=== PATIENT | female | born 1965 | race African-American/Black ===

== ENCOUNTER 2017-04-15 11:48 | Emergency (ER) | payer MEDICARE, MEDICAID ==
[~2017-04-15] VITALS: Ht 162.6 cm; Wt 106.6 kg
[~2017-04-15 11:48] MED LIST: LANTUS100 UNIT/2 SUBQ; METFORMIN HCL850 M1 ORAL; VANCOMYCIN HCL1 G1 IV
[2017-04-15] MEDS ORDERED: LEVOFLOXACIN500 MG ORAL (12:26)
[2017-04-15 13:18] VITALS: BP 158/97
--- NOTE | 2017-04-18 14:40 | Emergency Room Report ---
History of Present Illness General Chief Complaint: Skin Rash/Abscess Source: Patient, Medical Record Present Illness HPI Patient's a 51-year-old female presented after left leg ulcer. Patient had reported having left ankle discomfort. Patient has prior history of chronic ulcer to her left leg. Patient was having gradual improvement in the left ulcer size. She denies any fever. She denied wound discharge. She presented and seen by plastic surgeon and had debridement. Patient is diabetic. Allergies: Coded Allergies: PENICILLINS (Verified Allergy, Severe, SWOLLEN BODY, 05/13/11) Patient History Past Medical History: see triage record Reviewed Nursing Documentation: PMH: Agreed, PSxH: Agreed Nursing Documentation-PMH Past Medical History: No History, Except For Hx Hypertension: Yes Hx Diabetes: Yes Review of Systems All Other Systems: negative except mentioned in HPI Physical Exam Vital Signs Date Time Temp Pulse Resp B/P (MAP) Pulse Ox O2 Delivery O2 Flow Rate FiO2 04/15/17 11:57 99.2 87 18 154/87 95 Room Air 99.1 Sp02 EP Interpretation: reviewed, normal General Appearance: normal inspection, no apparent distress, alert, GCS 15, Chronically Ill Head: atraumatic ENT: normal ENT inspection, hearing grossly normal, normal voice Neck: normal inspection, full range of motion, supple, no bony tend Respiratory: normal inspection, lungs clear, normal breath sounds, no respiratory distress, no retraction, no wheezing Cardiovascular #1: regular rate, rhythm, edema - trace Gastrointestinal: normal inspection, normal bowel sounds, non tender, soft, no guarding, no hernia Genitourinary: no CVA tenderness Musculoskeletal: normal inspection, back normal, normal range of motion, other - amputation bka rigth Neurologic: normal inspection, alert, responsive, speech normal Psychiatric: normal inspection, judgement/insight normal, mood/affect normal Skin: other - left leg ulcer, near lateral malleolus, no significant discharge Medical Decision Making Diagnostic Impression: Primary Impression: Leg ulcer, left ER Course Patient is a 51-year-old female presented for left leg ulcer. Differential diagnosis includes not limited to osteomyelitis, cellulitis, abscess among others. Patient has a benign exam and does not appear to require any further imaging or laboratory testing at this time. Patient has a chronic nonhealing wound which per patient has been improving. Patient was advised to follow-up with with wound care clinic. Patient was given prescription for antibiotics. The patient is advised to follow up with primary care doctor in 1-2 days. Patient is advised to return if any worsening condition or if any changes in status that are concerning. This report is dictated with [employer] route delivery supervisor software which may occasionally lead to discrepancies related to use of this software. Last Vital Signs Date Time Temp Pulse Resp B/P (MAP) Pulse Ox O2 Delivery O2 Flow Rate FiO2 04/15/17 13:18 99.0 87 18 158/97 97 Room Air 99.1 Status: improved Disposition: HOME, SELF-CARE Condition: Stable Scripts Levofloxacin (LEVOFLOXACIN*) 500 Mg Tablet 500 MG ORAL DAILY, #7 TAB Prov: Carlos Holman 04/15/17 Referrals: NOT CHOSEN [facility]/MD,REFERRING (PCP) Patient Instructions: Skin Ulcer Carlos oHlman Apr 18, 2017 14:40
== END 2017-04-15 13:20 | disposition home or self-care (01) ==
LOC: EMR 13:20
DX: L97.829 Non-pressure chronic ulcer of other part of left lower leg with unspecified severity (principal); Z89.511 Acquired absence of right leg below knee; E11.9 Type 2 diabetes mellitus without complications; I10 Essential (primary) hypertension; Z88.0 Allergy status to penicillin
CPT/HCPCS: 99282

== ENCOUNTER 2017-04-21 14:51 | Inpatient (IN) | payer MEDICARE, MEDICAID ==
[~2017-04-21] VITALS: Ht 162.6 cm; Wt 105.2 kg
[~2017-04-21 14:51] MED LIST changes: +LEVOFLOXACIN500 MG ORAL
[2017-04-21 17:00] VITALS: BP 133/80
[2017-04-21 17:53] LABS: HEMATOCRIT 34.2 % (37.0-47.0); HEMOGLOBIN 10.7 G/DL (12.0-16.0); MEAN CORPUSCULAR VOLUME 87 FL (80-99); PLATELET COUNT 299 K/UL (150-450); RED BLOOD COUNT 3.93 M/UL (4.20-5.40); RED CELL DISTRIBUTION WIDTH 12.8 % (11.6-14.8); WHITE BLOOD COUNT 17.6 K/UL (4.8-10.8)
[2017-04-21 17:57] LABS: ALANINE AMINOTRANSFERASE 9 U/L (12-78); ALBUMIN 1.9 G/DL (3.4-5.0); ALBUMIN/GLOBULIN RATIO 0.3 (1.0-2.7); ALKALINE PHOSPHATASE 100 U/L (46-116); ANION GAP 16 mmol/L (5-15); ASPARTATE AMINO TRANSFERASE 7 U/L (15-37); BILIRUBIN,TOTAL 0.6 MG/DL (0.2-1.0); BLOOD UREA NITROGEN 49 mg/dL (7-18); CALCIUM 10.2 MG/DL (8.5-10.1); CARBON DIOXIDE 20 MMOL/L (21-32); CHLORIDE 87 MMOL/L (98-107); POTASSIUM 4.2 MMOL/L (3.5-5.1); SODIUM 123 MMOL/L (136-145)
[2017-04-21] MEDS ORDERED: Morphine Sulfate 2mg/ml Inj IVP PRN (18:15)
[2017-04-21] MEDS ORDERED: Miralax 17gm pkt ORAL PRN (18:15)
[2017-04-21] MEDS ORDERED: Nitroglycerin Subl 0.4mg tab SL PRN (18:15)
[2017-04-21] MEDS ORDERED: Albuterol/Ipratropium 3ml neb HHN PRN (18:15)
[2017-04-21 19:47] VITALS: BP 115/68
[2017-04-21] MEDS ORDERED: Aztreonam Inj 1 GM in NS 55 ML IVPB SCH ×2 (20:00→22:00)
[2017-04-21] MEDS ORDERED: Cefepime HCl 2 GM in D5W 110 ML IV SCH (21:00)
--- NOTE | 2017-04-21 21:45 | History and Physical ---
History of Present Illness General Date patient seen: Apr 22, 2017 Reason for Hospitalization: Skin Rash/Abscess Present Illness HPI 51 yo female with hx of DM, Hx of right foot amputation patient presents to ER complaining of left leg swelling. Patient unable to ambulate secondary to right foot amputation. Her left leg wound started a few days ago. Allergies: Coded Allergies: PENICILLINS (Verified Allergy, Severe, SWOLLEN BODY, 05/13/11) Medication History Scheduled Insulin Glargine,Hum.rec.anlog (Lantus), 80 SUBQ BEDTIME, (Reported) Levofloxacin (Levofloxacin*), 500 MG ORAL DAILY Metformin Hcl* (Metformin Hcl*), 850 MG ORAL BID, (Reported) Vancomycin Hcl (Vancomycin Hcl), GM IV DAILY, (Reported) Miscellaneous Medications Vancomycin Hcl (Vancomycin Hcl), 1 GM IV, (Reported) Patient History Healthcare decision maker Resuscitation status Advanced Directive on File Review of Systems All Other Systems: negative except mentioned in HPI Physical Exam General Appearance: WD/WN Lines, tubes and drains: peripheral HEENT: normocephalic, atraumatic Neck: non-tender, normal alignment Respiratory/Chest: chest wall non-tender, lungs clear Cardiovascular/Chest: normal peripheral pulses, normal rate Abdomen: normal bowel sounds, non tender Genitourinary/Rectal: normal genital exam Last 24 Hour Vital Signs Date Time Temp Pulse Resp B/P (MAP) Pulse Ox O2 Delivery O2 Flow Rate FiO2 04/21/17 19:47 99.4 106 16 115/68 96 Room Air 99.4 04/21/17 18:55 94 16 98 Room Air 04/21/17 18:53 94 16 Room Air 04/21/17 18:40 98.9 04/21/17 17:00 98.8 101 16 133/80 95 Room Air 98.8 04/21/17 15:05 98.9 94 16 145/91 98 Room Air 99.0 Laboratory Tests Test 04/21/17 17:10 04/21/17 17:20 Lactic Acid Level 1.50 mmol/L (0.66-2.22) White Blood Count 17.6 K/UL (4.8-10.8) H Red Blood Count 3.93 M/UL (4.20-5.40) L Hemoglobin 10.7 G/DL (12.0-16.0) L Hematocrit 34.2 % (37.0-47.0) L Mean Corpuscular Volume 87 FL (80-99) Mean Corpuscular Hemoglobin 27.2 PG (27.0-31.0) Mean Corpuscular Hemoglobin Concent 31.3 G/DL (32.0-36.0) L Red Cell Distribution Width 12.8 % (11.6-14.8) Platelet Count 299 K/UL (150-450) Mean Platelet Volume 10.0 FL (6.5-10.1) Neutrophils (%) (Auto) % (45.0-75.0) Lymphocytes (%) (Auto) % (20.0-45.0) Monocytes (%) (Auto) % (1.0-10.0) Eosinophils (%) (Auto) % (0.0-3.0) Basophils (%) (Auto) % (0.0-2.0) Differential Total Cells Counted 100 Neutrophils % (Manual) 80 % (45-75) H Lymphocytes % (Manual) 6 % (20-45) L Monocytes % (Manual) 8 % (1-10) Eosinophils % (Manual) 0 % (0-3) Basophils % (Manual) 0 % (0-2) Band Neutrophils 6 % (0-8) Platelet Estimate Adequate Platelet Morphology Normal Hypochromasia 1+ Anisocytosis 1+ Sodium Level 123 MMOL/L (136-145) L Potassium Level 4.2 MMOL/L (3.5-5.1) Chloride Level 87 MMOL/L (98-107) L Carbon Dioxide Level 20 MMOL/L (21-32) L Anion Gap 16 mmol/L (5-15) H Blood Urea Nitrogen 49 mg/dL (7-18) H Creatinine 3.0 MG/DL (0.55-1.30) H Estimat Glomerular Filtration Rate 19.8 mL/min (>60) Glucose Level 708 MG/DL (74-106) *H Calcium Level 10.2 MG/DL (8.5-10.1) H Total Bilirubin 0.6 MG/DL (0.2-1.0) Aspartate Amino Transf (AST/SGOT) 7 U/L (15-37) L Alanine Aminotransferase (ALT/SGPT) 9 U/L (12-78) L Alkaline Phosphatase 100 U/L (46-116) Total Protein 8.1 G/DL (6.4-8.2) Albumin 1.9 G/DL (3.4-5.0) L Globulin 6.2 g/dL Albumin/Globulin Ratio 0.3 (1.0-2.7) L Height (Feet): 5 Height (Inches): 4.00 Weight (Pounds): 232 Medications Current Medications Medications (Trade) Dose Ordered Sig/Artemio Route PRN Reason Start Time Stop Time Status Last Admin Dose Admin Acetaminophen (Tylenol) 650 mg Q4H PRN ORAL fever (temp>100.5F) 04/21/17 18:15 05/21/17 18:14 Albuterol/ Ipratropium (Albuterol/ Ipratropium) 3 ml Q4H PRN HHN Shortness of Breath 04/21/17 18:15 04/26/17 18:14 Aztreonam 1 gm/ Sodium Chloride 55 ml @ 110 mls/hr Q12HR@1000,2200 IVPB 04/21/17 22:00 04/28/17 21:59 Dextrose (Dextrose 50%) STAT PRN IV Hypoglycemia 04/21/17 18:15 05/21/17 18:14 Heparin Sodium (Porcine) (Heparin 5000 units/ml) 5,000 units EVERY 12 HOURS SUBQ 04/21/17 21:00 05/21/17 20:59 Insulin Aspart (NovoLOG) BEFORE MEALS AND HS SUBQ 04/21/17 21:00 05/21/17 20:59 Morphine Sulfate (Morphine Sulfate) 2 mg Q4H PRN IVP Moderate Pain (Pain Scale 4-6) 04/21/17 18:15 04/28/17 18:14 Nitroglycerin (Ntg) 0.4 mg Q5M PRN SL Prn Chest Pain 04/21/17 18:15 05/21/17 18:14 Ondansetron HCl (Zofran) 4 mg Q6H PRN IVP Nausea & Vomiting 04/21/17 18:15 05/21/17 18:14 Polyethylene Glycol (Miralax) 17 gm DAILYPRN PRN ORAL Constipation 04/21/17 18:15 05/21/17 18:14 Temazepam (Restoril) 15 mg HSPRN PRN ORAL Insomnia 04/21/17 18:15 04/28/17 18:14 Vancomycin HCl (Vanco rx to dose) 1 ea DAILY PRN MISC . 04/21/17 20:30 05/21/17 20:29 Vancomycin HCl/ Dextrose 250 ml @ 125 mls/hr ONCE ONCE IVPB 04/21/17 23:00 04/22/17 00:59 Assessment/Plan Problem List: (1) Cellulitis, leg ICD Codes: L03.119 - Cellulitis of unspecified part of limb SNOMED: 773051185 (2) Diabetes mellitus ICD Codes: E11.9 - Type 2 diabetes mellitus without complications SNOMED: 53296021 Assessment/Plan iv abx ID consult wound care Podiatry to see. BRUCE SHERWOOD Apr 21, 2017 21:45
[2017-04-21] MEDS: Heparin 5000 units/ml inj SUBQ SCH (22:21)
[2017-04-21] MEDS: NovoLOG Insulin Flexpen SUBQ SCH (22:23)
[2017-04-21] MEDS: Aztreonam Inj 1 GM in NS 55 ML IVPB SCH (22:41)
[2017-04-21] MEDS ORDERED: Vancomycin 1.5 GM/D5W 250ML IVPB ONE (23:00)
--- NOTE | 2017-04-21 23:39 | Emergency Room Report ---
History of Present Illness General Chief Complaint: Skin Rash/Abscess Source: Patient Present Illness HPI 51 yo female patient presents to ER complaining of left leg swelling. Patient reports swelling and infection has worsened since previous visit. Patient previously seen in ER for similar symptoms. Patient unable to ambulate secondary to right foot amputation. Hx of poorly controlled diabetes. 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 Reports can "feel foot". Reports hx of ulcer on foot that had been evaluated by physician and treated with topical medication. Denies fever, chest pain, SOB. Allergies: Coded Allergies: PENICILLINS (Verified Allergy, Severe, SWOLLEN BODY, 05/13/11) Patient History Past Medical History: see triage record Now: No Reviewed Nursing Documentation: PMH: Agreed, PSxH: Agreed Nursing Documentation-PMH Hx Cardiac Problems: No Hx Hypertension: Yes Hx Diabetes: Yes Hx Cancer: No Hx Gastrointestinal Problems: No Review of Systems All Other Systems: negative except mentioned in HPI Physical Exam Vital Signs Date Time Temp Pulse Resp B/P (MAP) Pulse Ox O2 Delivery O2 Flow Rate FiO2 04/21/17 15:05 98.9 94 16 145/91 98 Room Air 99.0 Sp02 EP Interpretation: reviewed, normal General Appearance: well appearing, no apparent distress, alert, GCS 15, Chronically Ill Head: normocephalic, atraumatic Eyes: bilateral eye normal inspection, bilateral eye PERRL ENT: hearing grossly normal, normal pharynx, no angioedema, normal voice, uvula midline, moist mucus membranes Neck: full range of motion Respiratory: lungs clear, normal breath sounds, no rhonchi, no respiratory distress, no accessory muscle use, no wheezing, speaking full sentences Cardiovascular #1: regular rate, rhythm, no edema Musculoskeletal: back normal, non-tender, other - right below ankle amputation Neurologic: alert, oriented x3, responsive, motor strength/tone normal, sensory intact Psychiatric: mood/affect normal Skin: other - cellulitis, erythema, ulcer, edema Lymphatic: no adenopathy Medical Decision Making PA Attestation Dr. Jimenez is my supervising Physician whom patient management has been discussed with. Diagnostic Impression: Primary Impression: Cellulitis, leg ER Course Pt. presents to the ED c/o cellulitis of lower left leg. Ddx considered but are not limited to rash, cellulitis, abscess, gangrene. Vital signs: are WNL, pt. is afebrile Ordered labs, medication. ER COURSE: Ordered labs, medication. Labs abnormal. Elevated WBC, elevated creatinine. Patient blood glucose critically elevated. Ordered insulin and IV fluids. Due to patient hx, abnormal labs, and previous visits to ER for similar symptoms , will admit patient to med-surg. Consult Dr. Jimenez. Patient will be admitted to Dr. Richmond. Patient admitted. Labs Test 04/21/17 17:10 04/21/17 17:20 Lactic Acid Level 1.50 mmol/L (0.66-2.22) White Blood Count 17.6 K/UL (4.8-10.8) Red Blood Count 3.93 M/UL (4.20-5.40) Hemoglobin 10.7 G/DL (12.0-16.0) Hematocrit 34.2 % (37.0-47.0) Mean Corpuscular Volume 87 FL (80-99) Mean Corpuscular Hemoglobin 27.2 PG (27.0-31.0) Mean Corpuscular Hemoglobin Concent 31.3 G/DL (32.0-36.0) Red Cell Distribution Width 12.8 % (11.6-14.8) Platelet Count 299 K/UL (150-450) Mean Platelet Volume 10.0 FL (6.5-10.1) Neutrophils (%) (Auto) % (45.0-75.0) Lymphocytes (%) (Auto) % (20.0-45.0) Monocytes (%) (Auto) % (1.0-10.0) Eosinophils (%) (Auto) % (0.0-3.0) Basophils (%) (Auto) % (0.0-2.0) Differential Total Cells Counted 100 Neutrophils % (Manual) 80 % (45-75) Lymphocytes % (Manual) 6 % (20-45) Monocytes % (Manual) 8 % (1-10) Eosinophils % (Manual) 0 % (0-3) Basophils % (Manual) 0 % (0-2) Band Neutrophils 6 % (0-8) Platelet Estimate Adequate Platelet Morphology Normal Hypochromasia 1+ Anisocytosis 1+ Sodium Level 123 MMOL/L (136-145) Potassium Level 4.2 MMOL/L (3.5-5.1) Chloride Level 87 MMOL/L (98-107) Carbon Dioxide Level 20 MMOL/L (21-32) Anion Gap 16 mmol/L (5-15) Blood Urea Nitrogen 49 mg/dL (7-18) Creatinine 3.0 MG/DL (0.55-1.30) Estimat Glomerular Filtration Rate 19.8 mL/min (>60) Glucose Level 708 MG/DL (74-106) Calcium Level 10.2 MG/DL (8.5-10.1) Total Bilirubin 0.6 MG/DL (0.2-1.0) Aspartate Amino Transf (AST/SGOT) 7 U/L (15-37) Alanine Aminotransferase (ALT/SGPT) 9 U/L (12-78) Alkaline Phosphatase 100 U/L (46-116) Total Protein 8.1 G/DL (6.4-8.2) Albumin 1.9 G/DL (3.4-5.0) Globulin 6.2 g/dL Albumin/Globulin Ratio 0.3 (1.0-2.7) Last Vital Signs Date Time Temp Pulse Resp B/P (MAP) Pulse Ox O2 Delivery O2 Flow Rate FiO2 04/21/17 19:47 99.4 106 16 115/68 96 Room Air 99.4 Disposition: ADMITTED INPATIENT Referrals: NOT CHOSEN [facility]/,REFERRING (PCP) Albaro Weiss Apr 21, 2017 23:39
[2017-04-22] VITALS: BP 153/78
[2017-04-22] MEDS ORDERED: Vancomycin 1 GM in D5W 275 ML IV SCH (00:30)
[2017-04-22 04:00] VITALS: BP 149/73
[2017-04-22] MEDS: NovoLOG Insulin Flexpen SUBQ SCH ×4 (06:30→20:39)
[2017-04-22 08:00] VITALS: BP 145/75
[2017-04-22 08:43] LABS: HEMATOCRIT 28.9 % (37.0-47.0); HEMOGLOBIN 9.5 G/DL (12.0-16.0); MEAN CORPUSCULAR VOLUME 84 FL (80-99); PLATELET COUNT 226 K/UL (150-450); RED BLOOD COUNT 3.42 M/UL (4.20-5.40); RED CELL DISTRIBUTION WIDTH 12.4 % (11.6-14.8); WHITE BLOOD COUNT 15.4 K/UL (4.8-10.8)
[2017-04-22 08:51] LABS: ALANINE AMINOTRANSFERASE 6 U/L (12-78); ALBUMIN 1.5 G/DL (3.4-5.0); ALBUMIN/GLOBULIN RATIO 0.3 (1.0-2.7); ALKALINE PHOSPHATASE 89 U/L (46-116); ANION GAP 11 mmol/L (5-15); ASPARTATE AMINO TRANSFERASE 7 U/L (15-37); BILIRUBIN,TOTAL 0.5 MG/DL (0.2-1.0); BLOOD UREA NITROGEN 43 mg/dL (7-18); CALCIUM 9.5 MG/DL (8.5-10.1); CARBON DIOXIDE 23 MMOL/L (21-32); CHLORIDE 96 MMOL/L (98-107); CREATININE 2.5 MG/DL (0.55-1.30); POTASSIUM 3.3 MMOL/L (3.5-5.1); SODIUM 130 MMOL/L (136-145)
[2017-04-22] MEDS: Heparin 5000 units/ml inj SUBQ SCH ×2 (09:00→20:39)
[2017-04-22] MEDS: Aztreonam Inj 1 GM in NS 55 ML IVPB SCH (09:00)
[2017-04-22 12:00] VITALS: BP 127/74
--- NOTE | 2017-04-22 15:45 | Consultation ---
History of Present Illness General Date patient seen: Apr 22, 2017 Time patient seen: 15:36 Chief Complaint: Skin Rash/Abscess Present Illness HPI 51 y/o F with hx of DM2, HTN, s/p R foot amputation presents to ED with L leg swelling and wound that started few days ago Patient seen in ED on 04/15 with sames complains and given 7 days of Levaquin. Denies f/c, CP, SOB Febrile here to 101.3, leukocytosis to 17, now downt o 15. bacteremic with GPC chains and pairs Allergies: Coded Allergies: PENICILLINS (Verified Allergy, Severe, SWOLLEN BODY, 04/22/17) Per Daughter, patient has tolerated Amoxicillin Medication History Scheduled Insulin Glargine,Hum.rec.anlog (Lantus), 80 SUBQ BEDTIME, (Reported) Levofloxacin (Levofloxacin*), 500 MG ORAL DAILY Metformin Hcl* (Metformin Hcl*), 850 MG ORAL BID, (Reported) Vancomycin Hcl (Vancomycin Hcl), GM IV DAILY, (Reported) Miscellaneous Medications Vancomycin Hcl (Vancomycin Hcl), 1 GM IV, (Reported) Patient History Healthcare decision maker Resuscitation status Full Code Advanced Directive on File Patient History Narrative PHx: as above Shx: reviewed Fhx: non contributory Review of Systems All Other Systems: negative except mentioned in HPI Physical Exam Physical Exam Narrative General Appearance: WD/WN Lines, tubes and drains: peripheral HEENT: normocephalic, atraumatic Neck: non-tender, normal alignment Respiratory/Chest: chest wall non-tender, lungs clear Cardiovascular/Chest: normal peripheral pulses, normal rate Abdomen: normal bowel sounds, non tender Ext: R foot s/p metatarsal amputation- stump with no signs of infection L foot: ulcer on lateral aspect of distal leg with foul smelling purulent discharge, and proximal to it an area of swelling with fluctuance which is extremely TTP, warmth and erythematous Last 24 Hour Vital Signs Date Time Temp Pulse Resp B/P (MAP) Pulse Ox O2 Delivery O2 Flow Rate FiO2 04/22/17 12:00 97.7 103 22 127/74 99 Room Air 97.7 04/22/17 11:13 97.7 04/22/17 10:14 101.0 04/22/17 08:00 100.2 102 21 145/75 100 Room Air 100.2 04/22/17 04:00 99.4 93 20 149/73 98 99.4 04/22/17 00:00 98.6 94 20 153/78 98 98.6 04/21/17 21:15 99.4 106 16 115/68 96 Room Air 99.4 04/21/17 19:47 99.4 106 16 115/68 96 Room Air 99.4 04/21/17 18:55 94 16 98 Room Air 04/21/17 18:53 94 16 Room Air 04/21/17 18:40 98.9 04/21/17 17:00 98.8 101 16 133/80 95 Room Air 98.8 Intake and Output 04/21/17 04/22/17 19:00 07:00 Intake Total 300 ml Output Total 0 ml Balance 300 ml Intake Oral 300 ml Output Urine Total 0 ml # Voids 1 Laboratory Tests Test 04/21/17 17:10 04/21/17 17:20 04/22/17 06:40 Lactic Acid Level 1.50 mmol/L (0.66-2.22) White Blood Count 17.6 K/UL (4.8-10.8) H 15.4 K/UL (4.8-10.8) H Red Blood Count 3.93 M/UL (4.20-5.40) L 3.42 M/UL (4.20-5.40) L Hemoglobin 10.7 G/DL (12.0-16.0) L 9.5 G/DL (12.0-16.0) L Hematocrit 34.2 % (37.0-47.0) L 28.9 % (37.0-47.0) L Mean Corpuscular Volume 87 FL (80-99) 84 FL (80-99) Mean Corpuscular Hemoglobin 27.2 PG (27.0-31.0) 27.7 PG (27.0-31.0) Mean Corpuscular Hemoglobin Concent 31.3 G/DL (32.0-36.0) L 32.8 G/DL (32.0-36.0) Red Cell Distribution Width 12.8 % (11.6-14.8) 12.4 % (11.6-14.8) Platelet Count 299 K/UL (150-450) 226 K/UL (150-450) Mean Platelet Volume 10.0 FL (6.5-10.1) 10.3 FL (6.5-10.1) H Neutrophils (%) (Auto) % (45.0-75.0) % (45.0-75.0) Lymphocytes (%) (Auto) % (20.0-45.0) % (20.0-45.0) Monocytes (%) (Auto) % (1.0-10.0) % (1.0-10.0) Eosinophils (%) (Auto) % (0.0-3.0) % (0.0-3.0) Basophils (%) (Auto) % (0.0-2.0) % (0.0-2.0) Differential Total Cells Counted 100 100 Neutrophils % (Manual) 80 % (45-75) H 83 % (45-75) H Lymphocytes % (Manual) 6 % (20-45) L 6 % (20-45) L Monocytes % (Manual) 8 % (1-10) 8 % (1-10) Eosinophils % (Manual) 0 % (0-3) 0 % (0-3) Basophils % (Manual) 0 % (0-2) 0 % (0-2) Band Neutrophils 6 % (0-8) 3 % (0-8) Platelet Estimate Adequate Adequate Platelet Morphology Normal Normal Hypochromasia 1+ 1+ Anisocytosis 1+ Sodium Level 123 MMOL/L (136-145) L 130 MMOL/L (136-145) L Potassium Level 4.2 MMOL/L (3.5-5.1) 3.3 MMOL/L (3.5-5.1) L Chloride Level 87 MMOL/L (98-107) L 96 MMOL/L (98-107) L Carbon Dioxide Level 20 MMOL/L (21-32) L 23 MMOL/L (21-32) Anion Gap 16 mmol/L (5-15) H 11 mmol/L (5-15) Blood Urea Nitrogen 49 mg/dL (7-18) H 43 mg/dL (7-18) H Creatinine 3.0 MG/DL (0.55-1.30) H 2.5 MG/DL (0.55-1.30) H Estimat Glomerular Filtration Rate 19.8 mL/min (>60) 24.5 mL/min (>60) Glucose Level 708 MG/DL (74-106) *H 368 MG/DL (74-106) #H Calcium Level 10.2 MG/DL (8.5-10.1) H 9.5 MG/DL (8.5-10.1) Total Bilirubin 0.6 MG/DL (0.2-1.0) 0.5 MG/DL (0.2-1.0) Aspartate Amino Transf (AST/SGOT) 7 U/L (15-37) L 7 U/L (15-37) L Alanine Aminotransferase (ALT/SGPT) 9 U/L (12-78) L 6 U/L (12-78) L Alkaline Phosphatase 100 U/L (46-116) 89 U/L (46-116) Total Protein 8.1 G/DL (6.4-8.2) 6.7 G/DL (6.4-8.2) Albumin 1.9 G/DL (3.4-5.0) L 1.5 G/DL (3.4-5.0) L Globulin 6.2 g/dL 5.2 g/dL Albumin/Globulin Ratio 0.3 (1.0-2.7) L 0.3 (1.0-2.7) L Microbiology Date/Time Source Procedure Growth Status 04/21/17 18:30 Blood Blood Culture - Preliminary Resulted Height (Feet): 5 Height (Inches): 4.00 Weight (Pounds): 232 Medications Current Medications Medications (Trade) Dose Ordered Sig/Artemio Route PRN Reason Start Time Stop Time Status Last Admin Dose Admin Acetaminophen (Tylenol) 650 mg Q4H PRN ORAL fever (temp>100.5F) 04/21/17 18:15 05/21/17 18:14 04/22/17 10:14 Albuterol/ Ipratropium (Albuterol/ Ipratropium) 3 ml Q4H PRN HHN Shortness of Breath 04/21/17 18:15 04/26/17 18:14 Aztreonam 1 gm/ Sodium Chloride 55 ml @ 110 mls/hr Q12HR@1000,2200 IVPB 04/21/17 22:00 04/28/17 21:59 04/22/17 09:00 Dextrose (Dextrose 50%) STAT PRN IV Hypoglycemia 04/21/17 18:15 05/21/17 18:14 Heparin Sodium (Porcine) (Heparin 5000 units/ml) 5,000 units EVERY 12 HOURS SUBQ 04/21/17 21:00 05/21/17 20:59 04/22/17 09:00 Insulin Aspart (NovoLOG) BEFORE MEALS AND HS SUBQ 04/21/17 21:00 05/21/17 20:59 04/22/17 12:19 Morphine Sulfate (Morphine Sulfate) 2 mg Q4H PRN IVP Moderate Pain (Pain Scale 4-6) 04/21/17 18:15 04/28/17 18:14 Nitroglycerin (Ntg) 0.4 mg Q5M PRN SL Prn Chest Pain 04/21/17 18:15 05/21/17 18:14 Ondansetron HCl (Zofran) 4 mg Q6H PRN IVP Nausea & Vomiting 04/21/17 18:15 05/21/17 18:14 Polyethylene Glycol (Miralax) 17 gm DAILYPRN PRN ORAL Constipation 04/21/17 18:15 05/21/17 18:14 Temazepam (Restoril) 15 mg HSPRN PRN ORAL Insomnia 04/21/17 18:15 04/28/17 18:14 Vancomycin HCl (Vanco rx to dose) 1 ea DAILY PRN MISC . 04/21/17 20:30 05/21/17 20:29 Assessment/Plan Assessment/Plan Abx: IV Vanco/Aztreonam 04/21- Assessment: Sepsis 2ry to L Leg cellulitis/abscess c/w bacteremia- r/o Strep necrotizing infection GPC bacteremia- ?strep -Bcx 04/21 1/2 GPC pairs and chains Fever/leukocytosis Dm2 HTN hx of R transmetatarsal amputation reported PNC allergy- however tolerates Amoxicillin per daughter Plan: -Continue IV Vancomycin #2 and switch Aztreonam to Ceftriaxone (unlikely PNC allergy as tolerates amoxicillin) and Clindamycin for possible strep pyogenes bacteremia -2 sets of Bcx -Surgery evaluation for debridement of abscess -f/u cx -monitor CBC/BMP, temperatures -ESR. CRP am Thank you for this consultation. Will continue to follow along with you. Discussed with RN, Dr Ramirez and Dr Richmond. Faye Foy M.D. Apr 22, 2017 15:45
[2017-04-22 16:00] VITALS: BP 138/80
[2017-04-22] MEDS: cefTRIAXone 2 GM in NS 55 ML IVPB SCH (20:36)
[2017-04-22] MEDS: Clindamycin 900mg 50 ML IV SCH (20:37)
[2017-04-22 21:00] VITALS: BP_SYST 133; BP_SYST 188; BP_DIAS 114; BP_DIAS 78
--- NOTE | 2017-04-22 21:08 | Pulmonology Progress Note ---
Assessment/Plan Problems: (1) Cellulitis, leg (2) Diabetes mellitus Assessment/Plan iv abx sliding sclae wound care podiatry to see Subjective ROS Limited/Unobtainable: No Allergies: Coded Allergies: PENICILLINS (Verified Allergy, Severe, SWOLLEN BODY, 04/22/17) Per Daughter, patient has tolerated Amoxicillin Objective Last 24 Hour Vital Signs Date Time Temp Pulse Resp B/P (MAP) Pulse Ox O2 Delivery O2 Flow Rate FiO2 04/22/17 20:37 102.4 04/22/17 16:00 99.2 104 21 138/80 99 Room Air 99.2 04/22/17 12:00 97.7 103 22 127/74 99 Room Air 97.7 04/22/17 11:13 97.7 04/22/17 10:14 101.0 04/22/17 08:00 100.2 102 21 145/75 100 Room Air 100.2 04/22/17 04:00 99.4 93 20 149/73 98 99.4 04/22/17 00:00 98.6 94 20 153/78 98 98.6 04/21/17 21:15 99.4 106 16 115/68 96 Room Air 99.4 Intake and Output 04/21/17 04/22/17 19:00 07:00 Intake Total 300 ml Output Total 0 ml Balance 300 ml Intake Oral 300 ml Output Urine Total 0 ml # Voids 1 Objective General Appearance: cachectic HEENT: normocephalic, atraumatic, anicteric Respiratory/Chest: chest wall non-tender, Breasts: no masses Cardiovascular: normal peripheral pulses Abdomen: normal bowel sounds Genitourinary: normal external genitalia Microbiology Date/Time Source Procedure Growth Status 04/21/17 18:30 Blood Blood Culture - Preliminary Resulted Laboratory Tests 04/22/17 06:40: White Blood Count 15.4H, Red Blood Count 3.42L, Hemoglobin 9.5L, Hematocrit 28.9L, Mean Corpuscular Volume 84, Mean Corpuscular Hemoglobin 27.7, Mean Corpuscular Hemoglobin Concent 32.8, Red Cell Distribution Width 12.4, Platelet Count 226, Mean Platelet Volume 10.3H, Neutrophils (%) (Auto) , Lymphocytes (%) (Auto) , Monocytes (%) (Auto) , Eosinophils (%) (Auto) , Basophils (%) (Auto) , Differential Total Cells Counted 100, Neutrophils % (Manual) 83H, Lymphocytes % (Manual) 6L, Monocytes % (Manual) 8, Eosinophils % (Manual) 0, Basophils % ( Manual) 0, Band Neutrophils 3, Platelet Estimate Adequate, Platelet Morphology Normal, Hypochromasia 1+, Sodium Level 130L, Potassium Level 3.3L, Chloride Level 96L, Carbon Dioxide Level 23, Anion Gap 11, Blood Urea Nitrogen 43H, Creatinine 2.5H, Estimat Glomerular Filtration Rate 24.5, Glucose Level 368#H, Calcium Level 9.5, Total Bilirubin 0.5, Aspartate Amino Transf (AST/SGOT) 7L, Alanine Aminotransferase (ALT/SGPT) 6L, Alkaline Phosphatase 89, Total Protein 6.7, Albumin 1.5L, Globulin 5.2, Albumin/Globulin Ratio 0.3L 04/22/17 19:50: Random Vancomycin Level 11.3 Current Medications Medications (Trade) Dose Ordered Sig/Artemio Route PRN Reason Start Time Stop Time Status Last Admin Dose Admin Acetaminophen (Tylenol) 650 mg Q4H PRN ORAL fever (temp>100.5F) 04/21/17 18:15 05/21/17 18:14 04/22/17 20:37 Albuterol/ Ipratropium (Albuterol/ Ipratropium) 3 ml Q4H PRN HHN Shortness of Breath 04/21/17 18:15 04/26/17 18:14 Ceftriaxone Sodium 2 gm/ Sodium Chloride 55 ml @ 110 mls/hr Q24H IVPB 04/22/17 20:00 04/29/17 19:59 04/22/17 20:36 Clindamycin HCl/ Dextrose 50 ml @ 100 mls/hr Q8HR IV 04/22/17 22:00 04/29/17 21:59 04/22/17 20:37 Dextrose (Dextrose 50%) STAT PRN IV Hypoglycemia 04/21/17 18:15 05/21/17 18:14 Heparin Sodium (Porcine) (Heparin 5000 units/ml) 5,000 units EVERY 12 HOURS SUBQ 04/21/17 21:00 05/21/17 20:59 04/22/17 20:39 Insulin Aspart (NovoLOG) BEFORE MEALS AND HS SUBQ 04/21/17 21:00 05/21/17 20:59 04/22/17 20:39 Morphine Sulfate (Morphine Sulfate) 2 mg Q4H PRN IVP Moderate Pain (Pain Scale 4-6) 04/21/17 18:15 04/28/17 18:14 Nitroglycerin (Ntg) 0.4 mg Q5M PRN SL Prn Chest Pain 04/21/17 18:15 05/21/17 18:14 Ondansetron HCl (Zofran) 4 mg Q6H PRN IVP Nausea & Vomiting 04/21/17 18:15 05/21/17 18:14 Polyethylene Glycol (Miralax) 17 gm DAILYPRN PRN ORAL Constipation 04/21/17 18:15 05/21/17 18:14 Temazepam (Restoril) 15 mg HSPRN PRN ORAL Insomnia 04/21/17 18:15 04/28/17 18:14 Vancomycin HCl (Vanco rx to dose) 1 ea DAILY PRN MISC . 04/21/17 20:30 05/21/17 20:29 Vancomycin HCl/ Dextrose 250 ml @ 125 mls/hr ONCE ONCE IVPB 04/22/17 22:00 04/22/17 23:59 Ruby Richmond MD Apr 22, 2017 21:08
[2017-04-22] MEDS ORDERED: Vancomycin 1.5 GM/D5W 250ML IVPB ONE (22:00)
[2017-04-23] VITALS: BP 140/78
[2017-04-23 04:00] VITALS: BP 137/73
[2017-04-23] MEDS: Clindamycin 900mg 50 ML IV SCH (05:25)
[2017-04-23] MEDS: NovoLOG Insulin Flexpen SUBQ SCH ×4 (06:16→22:07)
[2017-04-23 07:06] LABS: BASOPHILS % (AUTO) 0.4 % (0.0-2.0); HEMATOCRIT 28.8 % (37.0-47.0); HEMOGLOBIN 9.4 G/DL (12.0-16.0); LYMPHOCYTES % (AUTO) 6.2 % (20.0-45.0); MEAN CORPUSCULAR VOLUME 85 FL (80-99); MONOCYTES % (AUTO) 10.2 % (1.0-10.0); NEUTROPHILS % (AUTO) 83.2 % (45.0-75.0); PLATELET COUNT 217 K/UL (150-450); RED CELL DISTRIBUTION WIDTH 12.5 % (11.6-14.8); WHITE BLOOD COUNT 16.5 K/UL (4.8-10.8)
[2017-04-23 07:12] LABS: ALANINE AMINOTRANSFERASE < 6 U/L (12-78); ALBUMIN 1.3 G/DL (3.4-5.0); ALBUMIN/GLOBULIN RATIO 0.2 (1.0-2.7); ALKALINE PHOSPHATASE 79 U/L (46-116); ANION GAP 13 mmol/L (5-15); ASPARTATE AMINO TRANSFERASE 8 U/L (15-37); BILIRUBIN,TOTAL 0.5 MG/DL (0.2-1.0); BLOOD UREA NITROGEN 42 mg/dL (7-18); CALCIUM 9.3 MG/DL (8.5-10.1); CARBON DIOXIDE 21 MMOL/L (21-32); CHLORIDE 97 MMOL/L (98-107); CREATININE 2.5 MG/DL (0.55-1.30); PHOSPHORUS 2.4 MG/DL (2.5-4.9); POTASSIUM 3.8 MMOL/L (3.5-5.1); SODIUM 131 MMOL/L (136-145)
[2017-04-23 08:00] VITALS: BP 140/78
[2017-04-23] MEDS: Heparin 5000 units/ml inj SUBQ SCH ×2 (08:54→22:03)
[2017-04-23] MEDS ORDERED: NS 500ML ONE (11:08)
[2017-04-23] MEDS ORDERED: Tubing IV Secondary IV ONE (11:08)
[2017-04-23 12:00] VITALS: BP 130/78
--- NOTE | 2017-04-23 12:38 | Consultation ---
Consult Note Consult Note asked to eval for renal failure- 51 yo female patient presents to ER complaining of left leg swelling. Patient reports swelling and infection has worsened since previous visit. Patient previously seen in ER for similar symptoms. Patient unable to ambulate secondary to right foot amputation. Hx of poorly controlled diabetes. 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 Reports can "feel foot". Reports hx of ulcer on foot that had been evaluated by physician and treated with topical medication. Denies fever, chest pain, SOB. PENICILLINS (Verified Allergy, Severe, SWOLLEN BODY, 05/13/11) Hx Hypertension: Yes Hx Diabetes: Yes . Assessment/Plan Renal Assessment: Renal failure- ? Diabetic nephropathy , CKD Anemia HypoAlbuminemia r/o Nephrotic State Other: Sepsis due to L Leg cellulitis/abscess c/w bacteremia- r/o Strep necrotizing infection Fever/leukocytosis Dm2 HTN hx of R transmetatarsal amputation reported PNC allergy- Plan: UA 24 H urine protein Anemia li avoid nephrotoxics per orders IBETH ROSAS Apr 23, 2017 12:38
--- NOTE | 2017-04-23 13:07 | Infectious Diseases Prog Note ---
Assessment/Plan Assessment/Plan Abx: IV Vanco/Aztreonam 04/21- Assessment: Sepsis 2ry to L Leg cellulitis/abscess, infected wound c/w bacteremia 2ry to Group B strep - r/o ankle OM -wound cx p -ESR 116, CRP 27.7 GBS bacteremia- -Bcx 04/21 2/4 +; Bcx 04/22 p Fever/leukocytosis Dm2 HTN hx of R transmetatarsal amputation reported PNC allergy- however tolerates Amoxicillin per daughter Plan: -Continue CEftriaxone #3 for Group B strep cellulitis/abscess and bacteremia and add Flagyl for anaerobic coverage until debridement -d/c IV Vancomycin #2 and Clindamycin #2 -04/22 SP IV Aztreonam #2 -f/u 2 sets of Bcx -Surgery evaluation for debridement of abscess -xray L ankle and tibia/fibula -f/u cx -monitor CBC/BMP, temperatures Thank you for this consultation. Will continue to follow along with you. Discussed with RN, Dr Ramirez and Dr Richmond Subjective Allergies: Coded Allergies: PENICILLINS (Verified Allergy, Severe, SWOLLEN BODY, 04/22/17) Per Daughter, patient has tolerated Amoxicillin Subjective Tm 102.8 Leukocytosis improving repeat Bcx p wound cx p Objective Vital Signs Last 24 Hour Vital Signs Date Time Temp Pulse Resp B/P (MAP) Pulse Ox O2 Delivery O2 Flow Rate FiO2 04/23/17 08:00 96.9 98 22 140/78 98 Room Air 96.9 04/23/17 08:00 97.3 98 20 140/78 98 97.3 04/23/17 04:00 99.3 92 20 137/73 96 99.3 04/23/17 00:00 99.1 93 20 140/78 96 99.1 04/22/17 21:36 101.5 04/22/17 21:00 102.8 107 20 133/78 95 102.8 04/22/17 20:37 102.4 04/22/17 16:00 99.2 104 21 138/80 99 Room Air 99.2 Height (Feet): 5 Height (Inches): 4.00 Weight (Pounds): 232 Objective General Appearance: WD/WN Lines, tubes and drains: peripheral HEENT: normocephalic, atraumatic Neck: non-tender, normal alignment Respiratory/Chest: chest wall non-tender, lungs clear Cardiovascular/Chest: normal peripheral pulses, normal rate Abdomen: normal bowel sounds, non tender Ext: R foot s/p metatarsal amputation- stump with no signs of infection L foot: ulcer on lateral aspect of distal leg with foul smelling purulent discharge, and proximal to it an area of swelling with fluctuance which is extremely TTP, warmth and erythematous Microbiology Date/Time Source Procedure Growth Status 04/21/17 18:30 Blood Blood Culture - Preliminary Strep Agalactiae Group B Resulted 04/21/17 18:20 Blood Blood Culture - Preliminary Strep Agalactiae Group B Resulted 04/22/17 03:00 Other(Specify in comment) Gram Stain Pending Resulted 04/22/17 03:00 Other(Specify in comment) Wound Culture - Preliminary Resulted Laboratory Tests Test 04/22/17 19:50 04/23/17 05:30 Random Vancomycin Level 11.3 ug/mL White Blood Count 16.5 K/UL (4.8-10.8) H Red Blood Count 3.40 M/UL (4.20-5.40) L Hemoglobin 9.4 G/DL (12.0-16.0) L Hematocrit 28.8 % (37.0-47.0) L Mean Corpuscular Volume 85 FL (80-99) Mean Corpuscular Hemoglobin 27.8 PG (27.0-31.0) Mean Corpuscular Hemoglobin Concent 32.7 G/DL (32.0-36.0) Red Cell Distribution Width 12.5 % (11.6-14.8) Platelet Count 217 K/UL (150-450) Mean Platelet Volume 10.2 FL (6.5-10.1) H Neutrophils (%) (Auto) 83.2 % (45.0-75.0) H Lymphocytes (%) (Auto) 6.2 % (20.0-45.0) L Monocytes (%) (Auto) 10.2 % (1.0-10.0) H Eosinophils (%) (Auto) 0.0 % (0.0-3.0) Basophils (%) (Auto) 0.4 % (0.0-2.0) Erythrocyte Sedimentation Rate 116 MM/HR (0-30) H Sodium Level 131 MMOL/L (136-145) L Potassium Level 3.8 MMOL/L (3.5-5.1) Chloride Level 97 MMOL/L (98-107) L Carbon Dioxide Level 21 MMOL/L (21-32) Anion Gap 13 mmol/L (5-15) Blood Urea Nitrogen 42 mg/dL (7-18) H Creatinine 2.5 MG/DL (0.55-1.30) H Estimat Glomerular Filtration Rate 24.5 mL/min (>60) Glucose Level 414 MG/DL (74-106) H Calcium Level 9.3 MG/DL (8.5-10.1) Phosphorus Level 2.4 MG/DL (2.5-4.9) L Magnesium Level 1.7 MG/DL (1.8-2.4) L Total Bilirubin 0.5 MG/DL (0.2-1.0) Aspartate Amino Transf (AST/SGOT) 8 U/L (15-37) L Alanine Aminotransferase (ALT/SGPT) < 6 U/L (12-78) L Alkaline Phosphatase 79 U/L (46-116) C-Reactive Protein, Quantitative 27.7 mg/dL (0.00-0.90) H Total Protein 6.6 G/DL (6.4-8.2) Albumin 1.3 G/DL (3.4-5.0) L Globulin 5.3 g/dL Albumin/Globulin Ratio 0.2 (1.0-2.7) L Current Medications Medications (Trade) Dose Ordered Sig/Artemio Route PRN Reason Start Time Stop Time Status Last Admin Dose Admin Acetaminophen (Tylenol) 650 mg Q4H PRN ORAL fever (temp>100.5F) 04/21/17 18:15 05/21/17 18:14 04/22/17 20:37 Albuterol/ Ipratropium (Albuterol/ Ipratropium) 3 ml Q4H PRN HHN Shortness of Breath 04/21/17 18:15 04/26/17 18:14 Ceftriaxone Sodium 2 gm/ Sodium Chloride 55 ml @ 110 mls/hr Q24H IVPB 04/22/17 20:00 04/29/17 19:59 04/22/17 20:36 Clindamycin HCl/ Dextrose 50 ml @ 100 mls/hr Q8HR IV 04/22/17 22:00 04/29/17 21:59 04/23/17 05:25 Dextrose (Dextrose 50%) STAT PRN IV Hypoglycemia 04/21/17 18:15 05/21/17 18:14 Heparin Sodium (Porcine) (Heparin 5000 units/ml) 5,000 units EVERY 12 HOURS SUBQ 04/21/17 21:00 05/21/17 20:59 04/23/17 08:54 Insulin Aspart (NovoLOG) BEFORE MEALS AND HS SUBQ 04/21/17 21:00 05/21/17 20:59 04/23/17 12:12 Lansoprazole (Prevacid) 30 mg DAILY ORAL 04/23/17 13:00 05/23/17 12:59 Morphine Sulfate (Morphine Sulfate) 2 mg Q4H PRN IVP Moderate Pain (Pain Scale 4-6) 04/21/17 18:15 04/28/17 18:14 Nitroglycerin (Ntg) 0.4 mg Q5M PRN SL Prn Chest Pain 04/21/17 18:15 05/21/17 18:14 Ondansetron HCl (Zofran) 4 mg Q6H PRN IVP Nausea & Vomiting 04/21/17 18:15 05/21/17 18:14 Polyethylene Glycol (Miralax) 17 gm DAILYPRN PRN ORAL Constipation 04/21/17 18:15 05/21/17 18:14 Temazepam (Restoril) 15 mg HSPRN PRN ORAL Insomnia 04/21/17 18:15 04/28/17 18:14 Vancomycin HCl (Vanco rx to dose) 1 ea DAILY PRN MISC . 04/21/17 20:30 05/21/17 20:29 Faye Foy M.D. Apr 23, 2017 13:07
[2017-04-23] MEDS: metroNIDAZOLE 500mg tab ORAL SCH ×2 (14:34→22:02)
--- NOTE | 2017-04-23 15:05 | Cardiology Report ---
APPROVED REPORT EXAM: Two-dimensional and M-mode echocardiogram with Doppler and color Doppler. INDICATION Congestive Heart Failure M-Mode DIMENSIONS Left Atrium (MM)3.4 (1.6-4.0cm) Aortic Root3.5 (2.0-3.7cm) Aortic Cusp Exc.2.1 (1.5-2.0cm) Technically difficult study due to poor acoustical windows. M-mode measurements of left ventricle not obtainable due to cardiac position (angle) Normal left ventricular chamber size, systolic function and wall motion to extent visualized. Left ventricular ejection fraction estimated to be 60-65%. Moderate left ventricular hypertrophy by 2-D . No evidence of pericardial effusion. All other chamber sizes are within normal limits. Focal aortic valve sclerosis with adequate cusp excursion. Mildly Thickened mitral valve leaflets with normal excursion. Mildly Mitral annulus and aortic root calcification. Pulmonic valve not well visualized. Normal tricuspid valve structure. IVC at size 1.5 with physiologic collapse. A color flow and spectral Doppler study was performed and revealed: No aortic regurgitation. Trace mitral regurgitation. Mitral diastolic velocities suggest reduced left ventricular relaxation c/w mild LV diastolic dysfunction (Grade I ). Trace tricuspid regurgitation. Tricuspid systolic velocities suggests peak right ventricular systolic pressure of 21 mmHg, No Pulmonic regurgitation present.
--- NOTE | 2017-04-23 15:06 | Consultation ---
History of Present Illness General Date patient seen: Apr 23, 2017 Chief Complaint: Skin Rash/Abscess Reason for Consultation: left leg abscess Present Illness HPI 51F with multiple comorbdidities as noted below presented with complaints of worsening Left lower extremity swelling and pain. two ulcers noted and drainage of pus. was seen prior and started on Abx but did not improve. patient believes someone "looked at her the wrong way" and that is why this has developed. no n/v/f/c. pain in left foot. edema noted. pain with ambulation. drainage purulent. Allergies: Coded Allergies: PENICILLINS (Verified Allergy, Severe, SWOLLEN BODY, 04/23/17) Per Daughter, patient has tolerated Amoxicillin Tolerated Ceftriaxone 04/22/17 Medication History Scheduled Insulin Glargine,Hum.rec.anlog (Lantus), 80 SUBQ BEDTIME, (Reported) Levofloxacin (Levofloxacin*), 500 MG ORAL DAILY Metformin Hcl* (Metformin Hcl*), 850 MG ORAL BID, (Reported) Vancomycin Hcl (Vancomycin Hcl), GM IV DAILY, (Reported) Miscellaneous Medications Vancomycin Hcl (Vancomycin Hcl), 1 GM IV, (Reported) Patient History History Provided By: Patient, Medical Record Healthcare decision maker Resuscitation status Full Code Advanced Directive on File Past Medical/Surgical History Past Medical/Surgical History: (1) Leg ulcer, left (2) Cellulitis, leg (3) Diabetes mellitus Review of Systems Constitutional: Denies: no symptoms, see HPI, chills, sweats, fever, malaise, weakness, other Eye: Denies: no symptoms, see HPI, eye pain, blurred vision, tearing, double vision, nose pain, nose congestion, acuity changes, discharge, other ENT: Denies: no symptoms, see HPI, ear pain, ear discharge, nose pain, nose congestion, throat pain, throat swelling, mouth pain, hearing loss, nasal discharge, other Respiratory: Denies: no symptoms, see HPI, cough, orthopnea, shortness of breath, stridor, wheezing, GALINDO, sputum, other Cardiovascular: Denies: no symptoms, see HPI, chest pain, edema, palpitations, syncope, PND, other Gastrointestinal: Denies: no symptoms, see HPI, abdominal pain, constipation, diarrhea, nausea, vomiting, melena, hematemesis, other Genitourinary: Denies: no symptoms, see HPI, discharge, dysuria, frequency, hematuria, pain, retention, incontinence, urgency, vag bleed/dc, other Musculoskeletal: Denies: no symptoms, see HPI, back pain, gout, joint pain, joint swelling, muscle pain, muscle stiffness, other Skin: Denies: no symptoms, see HPI, rash, change in color, change in hair/nails , dryness, lesions, other Psychiatric: Denies: no symptoms, see HPI, prior hx, anxiety, depressed feelings, emotional problems, SI, HI, hallucinations, other Neurological: Denies: no symptoms, see HPI, headache, numbness, paresthesia, seizure, tingling, tremors, focal weakness, syncope, dizziness, other Endocrine: Denies: no symptoms, see HPI, excessive sweating, flushing, intolerance to temperature, increased thirst, increased urine, unexplained weight loss, other Hematologic/Lymphatic: Denies: no symptoms, see HPI, anemia, blood clots, easy bleeding, easy bruising, swollen glands, diathesis, other All Other Systems: negative except mentioned in HPI Physical Exam General Appearance: no apparent distress, alert Lines, tubes and drains: peripheral HEENT: normocephalic, atraumatic, mucous membranes moist Neck: supple Respiratory/Chest: lungs clear, normal breath sounds, no respiratory distress, no accessory muscle use Cardiovascular/Chest: normal peripheral pulses, normal rate Abdomen: normal bowel sounds, non tender, soft, no organomegaly Extremities: other - left lateral distal leg there is area of large fluctuance , erythema, edema. distal there is a slowly healing ulcer. Skin Exam: warm/dry Neurologic: alert, oriented x 3, responsive Last 24 Hour Vital Signs Date Time Temp Pulse Resp B/P (MAP) Pulse Ox O2 Delivery O2 Flow Rate FiO2 04/23/17 12:00 98.7 95 20 130/78 98 98.7 04/23/17 08:00 96.9 98 22 140/78 98 Room Air 96.9 04/23/17 08:00 97.3 98 20 140/78 98 97.3 04/23/17 04:00 99.3 92 20 137/73 96 99.3 04/23/17 00:00 99.1 93 20 140/78 96 99.1 04/22/17 21:36 101.5 04/22/17 21:00 102.8 107 20 133/78 95 102.8 04/22/17 20:37 102.4 04/22/17 16:00 99.2 104 21 138/80 99 Room Air 99.2 Intake and Output 04/22/17 04/23/17 19:00 07:00 Intake Total 1200 ml 155 ml Balance 1200 ml 155 ml Intake Oral 1200 ml IV Total 155 ml # Voids 4 3 # Bowel Movements 1 Laboratory Tests Test 04/22/17 19:50 04/23/17 05:30 Random Vancomycin Level 11.3 ug/mL White Blood Count 16.5 K/UL (4.8-10.8) H Red Blood Count 3.40 M/UL (4.20-5.40) L Hemoglobin 9.4 G/DL (12.0-16.0) L Hematocrit 28.8 % (37.0-47.0) L Mean Corpuscular Volume 85 FL (80-99) Mean Corpuscular Hemoglobin 27.8 PG (27.0-31.0) Mean Corpuscular Hemoglobin Concent 32.7 G/DL (32.0-36.0) Red Cell Distribution Width 12.5 % (11.6-14.8) Platelet Count 217 K/UL (150-450) Mean Platelet Volume 10.2 FL (6.5-10.1) H Neutrophils (%) (Auto) 83.2 % (45.0-75.0) H Lymphocytes (%) (Auto) 6.2 % (20.0-45.0) L Monocytes (%) (Auto) 10.2 % (1.0-10.0) H Eosinophils (%) (Auto) 0.0 % (0.0-3.0) Basophils (%) (Auto) 0.4 % (0.0-2.0) Erythrocyte Sedimentation Rate 116 MM/HR (0-30) H Sodium Level 131 MMOL/L (136-145) L Potassium Level 3.8 MMOL/L (3.5-5.1) Chloride Level 97 MMOL/L (98-107) L Carbon Dioxide Level 21 MMOL/L (21-32) Anion Gap 13 mmol/L (5-15) Blood Urea Nitrogen 42 mg/dL (7-18) H Creatinine 2.5 MG/DL (0.55-1.30) H Estimat Glomerular Filtration Rate 24.5 mL/min (>60) Glucose Level 414 MG/DL (74-106) H Calcium Level 9.3 MG/DL (8.5-10.1) Phosphorus Level 2.4 MG/DL (2.5-4.9) L Magnesium Level 1.7 MG/DL (1.8-2.4) L Total Bilirubin 0.5 MG/DL (0.2-1.0) Aspartate Amino Transf (AST/SGOT) 8 U/L (15-37) L Alanine Aminotransferase (ALT/SGPT) < 6 U/L (12-78) L Alkaline Phosphatase 79 U/L (46-116) C-Reactive Protein, Quantitative 27.7 mg/dL (0.00-0.90) H Total Protein 6.6 G/DL (6.4-8.2) Albumin 1.3 G/DL (3.4-5.0) L Globulin 5.3 g/dL Albumin/Globulin Ratio 0.2 (1.0-2.7) L Height (Feet): 5 Height (Inches): 4.00 Weight (Pounds): 232 Medications Current Medications Medications (Trade) Dose Ordered Sig/Artemio Route PRN Reason Start Time Stop Time Status Last Admin Dose Admin Acetaminophen (Tylenol) 650 mg Q4H PRN ORAL fever (temp>100.5F) 04/21/17 18:15 05/21/17 18:14 04/22/17 20:37 Albuterol/ Ipratropium (Albuterol/ Ipratropium) 3 ml Q4H PRN HHN Shortness of Breath 04/21/17 18:15 04/26/17 18:14 Ceftriaxone Sodium 2 gm/ Sodium Chloride 55 ml @ 110 mls/hr Q24H IVPB 04/22/17 20:00 04/29/17 19:59 04/22/17 20:36 Dextrose (Dextrose 50%) STAT PRN IV Hypoglycemia 04/21/17 18:15 05/21/17 18:14 Heparin Sodium (Porcine) (Heparin 5000 units/ml) 5,000 units EVERY 12 HOURS SUBQ 04/21/17 21:00 05/21/17 20:59 04/23/17 08:54 Insulin Aspart (NovoLOG) BEFORE MEALS AND HS SUBQ 04/21/17 21:00 05/21/17 20:59 04/23/17 12:12 Lansoprazole (Prevacid) 30 mg DAILY ORAL 04/23/17 13:00 05/23/17 12:59 04/23/17 13:15 Metronidazole (Flagyl) 500 mg Q8HR ORAL 04/23/17 14:00 04/30/17 13:59 04/23/17 14:34 Morphine Sulfate (Morphine Sulfate) 2 mg Q4H PRN IVP Moderate Pain (Pain Scale 4-6) 04/21/17 18:15 04/28/17 18:14 Nitroglycerin (Ntg) 0.4 mg Q5M PRN SL Prn Chest Pain 04/21/17 18:15 05/21/17 18:14 Ondansetron HCl (Zofran) 4 mg Q6H PRN IVP Nausea & Vomiting 04/21/17 18:15 05/21/17 18:14 Polyethylene Glycol (Miralax) 17 gm DAILYPRN PRN ORAL Constipation 04/21/17 18:15 05/21/17 18:14 Temazepam (Restoril) 15 mg HSPRN PRN ORAL Insomnia 04/21/17 18:15 04/28/17 18:14 Assessment/Plan Problem List: (1) Abscess of left leg Assessment & Plan: large abscess in left distal lateral leg down to muscle and tendon. large area of fluctuance. with patients consent incision and drainage was performed at bedside. 50-75cc of pus evacuated and sent for micro. wound cleaned and dressings applied. -cont Abx -dressings and packing TID will follow wound with recs. f/u micro cultures. thank you for this consult. ICD Codes: L02.416 - Cutaneous abscess of left lower limb SNOMED: [id number] Status: stable Sandro Ramirez Apr 23, 2017 15:06
--- NOTE | 2017-04-23 15:09 | Operative Note - PDOC ---
Operative Note Operative Note Date of Operation/Procedure: Apr 23, 2017 Pre-op Diagnosis: left distal lateral leg abscess Post-op Diagnosis: same as pre-op plus - down to muclse and tendon Surgeon: chery Specimen: yes - cultures Complications: none Condition: stable Estimated Blood Loss: minimal Drains: none Packing: washout, packing and dressings applied Implant(s) used?: No Indications for Procedure See Consult note. 51F left distal leg abscess lateral likely from DM and possible wound/trauma. non healing ulcer noted. large abscess noted. recommend I&D. procedure indicated. risks, benefits, and alternatives discussed in detail. consent obtained. Description of Procedure wound cleaned. area of necrotic ulcerated tissue noted at apex of fluctuance. no sensation to area. using scalpel and surgical sissors the area of necrotic tissue was excised and abscess evacuated. 50-75cc of pus evacuated. wound washed out with sterile saline. packing and dressings applied. cultures sent. will follow. Sandro Ramirez Apr 23, 2017 15:09
--- NOTE | 2017-04-23 15:54 | Diagnostic Imaging Report ---
Indication: Pain, open wound around the ankle Technique: 2 views of the left tibia and fibula Comparison: none Findings: Large soft tissue defect consistent with an ulcer is seen in the lateral soft tissues distally. There is also soft tissue defect laterally at the ankle level. There is a soft tissue defect anteriorly at the level of the distal leg. There is indistinctness of the cortical margins and underlying lucency involving the distal lateral fibula. No other definite osseous erosions, osteolytic defect, or unusual periosteal reaction. There are fairly extensive vascular calcifications. No acute fractures or dislocations. Impression: Soft tissue ulcers, as described Destructive changes of the distal fibula, better visualized on concurrent ankle radiographs, suspicious for acute osteomyelitis No acute bony trauma
[2017-04-23 16:00] VITALS: BP 137/77
[2017-04-23 16:04] LABS: APPEARANCE,URINE CLOUDY; BILIRUBIN, URINE NEGATIVE (NEGATIVE); GLUCOSE, URINE (UA) 4+ (NEGATIVE); KETONES,URINE 1+ (NEGATIVE); LEUKOCYTE ESTERASE ,URINE NEGATIVE (NEGATIVE); NITRITE,URINE NEGATIVE (NEGATIVE); PH,URINE 5 (4.5-8.0); PROTEIN,URINE 3+ (NEGATIVE); UROBILINOGEN,URINE 1 MG/DL (0.0-1.0)
[2017-04-23 16:07] LABS: COLOR,URINE YELLOW
--- NOTE | 2017-04-23 17:17 | Diagnostic Imaging Report ---
Indication: Open wound of the distal ankle. Technique: 2 views of the left ankle Comparison: 03/08/2012 Findings: There is a large soft tissue ulcer in the lateral distal leg. There is a smaller soft tissue ulcer superficial to the lateral malleolus. There is indistinctness of the cortical margin of the lateral distal fibula as well as underlying bony lucencies. This is concerning for bony destruction. These findings are new since the previous study. On the lateral view, there is also suggestion of an anterior soft tissue ulcer. In the distal leg. Previously demonstrated soft tissue gas is no longer evident No acute fractures. No dislocations. There are vascular calcifications. Impression: Evidence of multiple lateral soft tissue ulcers in the distal leg and ankle Evidence of destructive change of the distal fibula. This is highly suspicious for acute osteomyelitis No acute bony trauma Dr. Richmond notified at the time of interpretation
--- NOTE | 2017-04-23 18:10 | Pulmonology Progress Note ---
Assessment/Plan Problems: (1) Cellulitis, leg (2) Diabetes mellitus (3) Abscess of left leg (4) Bacteremia Assessment/Plan iv abx sliding sclae wound care s/p drainage of the abscess + osteomyelitis needs a few weeks of IV abx Subjective ROS Limited/Unobtainable: No Allergies: Coded Allergies: PENICILLINS (Verified Allergy, Severe, SWOLLEN BODY, 04/23/17) Per Daughter, patient has tolerated Amoxicillin Tolerated Ceftriaxone 04/22/17 Objective Last 24 Hour Vital Signs Date Time Temp Pulse Resp B/P (MAP) Pulse Ox O2 Delivery O2 Flow Rate FiO2 04/23/17 16:00 97.3 99 20 137/77 99 97.3 04/23/17 12:00 98.7 95 20 130/78 98 98.7 04/23/17 08:00 96.9 98 22 140/78 98 Room Air 96.9 04/23/17 08:00 97.3 98 20 140/78 98 97.3 04/23/17 04:00 99.3 92 20 137/73 96 99.3 04/23/17 00:00 99.1 93 20 140/78 96 99.1 04/22/17 21:36 101.5 04/22/17 21:00 102.8 107 20 133/78 95 102.8 04/22/17 20:37 102.4 Intake and Output 04/22/17 04/23/17 19:00 07:00 Intake Total 1200 ml 155 ml Balance 1200 ml 155 ml Intake Oral 1200 ml IV Total 155 ml # Voids 4 3 # Bowel Movements 1 Objective General Appearance: cachectic HEENT: normocephalic, atraumatic, anicteric Respiratory/Chest: chest wall non-tender, Breasts: no masses Cardiovascular: normal peripheral pulses Abdomen: normal bowel sounds Genitourinary: normal external genitalia Microbiology Date/Time Source Procedure Growth Status 04/21/17 18:30 Blood Blood Culture - Preliminary Strep Agalactiae Group B Resulted 04/21/17 18:20 Blood Blood Culture - Preliminary Strep Agalactiae Group B Resulted 04/22/17 03:00 Other(Specify in comment) Gram Stain Pending Resulted 04/22/17 03:00 Other(Specify in comment) Wound Culture - Preliminary Resulted Laboratory Tests 04/22/17 19:50: Random Vancomycin Level 11.3 04/23/17 05:30: White Blood Count 16.5H, Red Blood Count 3.40L, Hemoglobin 9.4L, Hematocrit 28.8L, Mean Corpuscular Volume 85, Mean Corpuscular Hemoglobin 27.8, Mean Corpuscular Hemoglobin Concent 32.7, Red Cell Distribution Width 12.5, Platelet Count 217, Mean Platelet Volume 10.2H, Neutrophils (%) (Auto) 83.2H, Lymphocytes (%) (Auto) 6.2L, Monocytes (%) (Auto) 10.2H, Eosinophils (%) (Auto) 0.0, Basophils (%) (Auto) 0.4, Erythrocyte Sedimentation Rate 116H, Sodium Level 131L, Potassium Level 3.8, Chloride Level 97L, Carbon Dioxide Level 21, Anion Gap 13, Blood Urea Nitrogen 42H, Creatinine 2.5H, Estimat Glomerular Filtration Rate 24.5, Glucose Level 414H, Calcium Level 9.3, Phosphorus Level 2.4L, Magnesium Level 1.7L, Total Bilirubin 0.5, Aspartate Amino Transf (AST/ SGOT) 8L, Alanine Aminotransferase (ALT/SGPT) < 6L, Alkaline Phosphatase 79, C- Reactive Protein, Quantitative 27.7H, Total Protein 6.6, Albumin 1.3L, Globulin 5.3, Albumin/Globulin Ratio 0.2L 04/23/17 15:10: C-Reactive Protein, Quantitative > 70.0H, Urine Color Yellow, Urine Appearance Cloudy, Urine pH 5, Urine Specific [place] 1.015, Urine Protein 3+H, Urine Glucose (UA) 4+H, Urine Ketones 1+H, Urine Occult Blood 2+H, Urine Nitrite Negative, Urine Bilirubin Negative, Urine Urobilinogen 1H, Urine Leukocyte Esterase Negative, Urine RBC 2-4H, Urine WBC 0-2, Urine Squamous Epithelial Cells Occasional, Urine Amorphous Sediment ManyH, Urine Bacteria ModerateH Current Medications Medications (Trade) Dose Ordered Sig/Artemio Route PRN Reason Start Time Stop Time Status Last Admin Dose Admin Acetaminophen (Tylenol) 650 mg Q4H PRN ORAL fever (temp>100.5F) 04/21/17 18:15 05/21/17 18:14 04/22/17 20:37 Albuterol/ Ipratropium (Albuterol/ Ipratropium) 3 ml Q4H PRN HHN Shortness of Breath 04/21/17 18:15 04/26/17 18:14 Ceftriaxone Sodium 2 gm/ Sodium Chloride 55 ml @ 110 mls/hr Q24H IVPB 04/22/17 20:00 04/29/17 19:59 04/22/17 20:36 Dextrose (Dextrose 50%) STAT PRN IV Hypoglycemia 04/21/17 18:15 05/21/17 18:14 Heparin Sodium (Porcine) (Heparin 5000 units/ml) 5,000 units EVERY 12 HOURS SUBQ 04/21/17 21:00 05/21/17 20:59 04/23/17 08:54 Insulin Aspart (NovoLOG) BEFORE MEALS AND HS SUBQ 04/21/17 21:00 05/21/17 20:59 04/23/17 16:54 Insulin Aspart (NovoLOG) 8 units NOVOTIAC SUBQ 04/24/17 06:30 05/24/17 06:29 Insulin Detemir (Levemir) 24 units BEDTIME SUBQ 04/23/17 21:00 05/23/17 20:59 Lansoprazole (Prevacid) 30 mg DAILY ORAL 04/23/17 13:00 05/23/17 12:59 04/23/17 13:15 Metronidazole (Flagyl) 500 mg Q8HR ORAL 04/23/17 14:00 04/30/17 13:59 04/23/17 14:34 Morphine Sulfate (Morphine Sulfate) 2 mg Q4H PRN IVP Moderate Pain (Pain Scale 4-6) 04/21/17 18:15 04/28/17 18:14 Nitroglycerin (Ntg) 0.4 mg Q5M PRN SL Prn Chest Pain 04/21/17 18:15 05/21/17 18:14 Ondansetron HCl (Zofran) 4 mg Q6H PRN IVP Nausea & Vomiting 04/21/17 18:15 05/21/17 18:14 Polyethylene Glycol (Miralax) 17 gm DAILYPRN PRN ORAL Constipation 04/21/17 18:15 05/21/17 18:14 Temazepam (Restoril) 15 mg HSPRN PRN ORAL Insomnia 04/21/17 18:15 04/28/17 18:14 Ruby Richmond MD Apr 23, 2017 18:10
[2017-04-23 21:00] VITALS: BP 147/79
[2017-04-23] MEDS ORDERED: Levemir Flexpen SUBQ SCH (21:00)
[2017-04-23] MEDS: cefTRIAXone 2 GM in NS 55 ML IVPB SCH (22:00)
--- NOTE | 2017-04-23 23:29 | Consultation ---
History of Present Illness General Date patient seen: Apr 21, 2017 Chief Complaint: Skin Rash/Abscess Reason for Consultation: left leg abscess Present Illness HPI 51F with multiple comorbidities presented with complaints of worsening Left lower extremity swelling and pain. the pt was seen as she found to be tearful. the pt stated that she has been sad and helpless. the pt stated that she was very pentecostalism and does not endorse si/hi. she was reluctant against meds. Allergies: Coded Allergies: PENICILLINS (Verified Allergy, Severe, SWOLLEN BODY, 04/23/17) Per Daughter, patient has tolerated Amoxicillin Tolerated Ceftriaxone 04/22/17 Medication History Scheduled Insulin Glargine,Hum.rec.anlog (Lantus), 80 SUBQ BEDTIME, (Reported) Levofloxacin (Levofloxacin*), 500 MG ORAL DAILY Metformin Hcl* (Metformin Hcl*), 850 MG ORAL BID, (Reported) Vancomycin Hcl (Vancomycin Hcl), GM IV DAILY, (Reported) Miscellaneous Medications Vancomycin Hcl (Vancomycin Hcl), 1 GM IV, (Reported) Patient History Healthcare decision maker Resuscitation status Full Code Advanced Directive on File Past Medical/Surgical History Past Medical/Surgical History: (1) Cellulitis, leg (2) Diabetes mellitus (3) Leg ulcer, left (4) Abscess of left leg (5) Bacteremia Review of Systems Psychiatric: Reports: prior hx, anxiety, depressed feelings, emotional problems Physical Exam General Appearance: no apparent distress, alert Neurologic: oriented x 3, depressed affect Last 24 Hour Vital Signs Date Time Temp Pulse Resp B/P (MAP) Pulse Ox O2 Delivery O2 Flow Rate FiO2 04/23/17 21:00 99.2 104 20 147/79 94 Room Air 99.2 04/23/17 16:00 97.3 99 20 137/77 99 97.3 04/23/17 12:00 98.7 95 20 130/78 98 98.7 04/23/17 08:00 96.9 98 22 140/78 98 Room Air 96.9 04/23/17 08:00 97.3 98 20 140/78 98 97.3 04/23/17 04:00 99.3 92 20 137/73 96 99.3 04/23/17 00:00 99.1 93 20 140/78 96 99.1 Intake and Output 04/22/17 04/23/17 19:00 07:00 Intake Total 1200 ml 155 ml Balance 1200 ml 155 ml Intake Oral 1200 ml IV Total 155 ml # Voids 4 3 # Bowel Movements 1 Laboratory Tests Test 04/23/17 05:30 04/23/17 15:10 White Blood Count 16.5 K/UL (4.8-10.8) H Red Blood Count 3.40 M/UL (4.20-5.40) L Hemoglobin 9.4 G/DL (12.0-16.0) L Hematocrit 28.8 % (37.0-47.0) L Mean Corpuscular Volume 85 FL (80-99) Mean Corpuscular Hemoglobin 27.8 PG (27.0-31.0) Mean Corpuscular Hemoglobin Concent 32.7 G/DL (32.0-36.0) Red Cell Distribution Width 12.5 % (11.6-14.8) Platelet Count 217 K/UL (150-450) Mean Platelet Volume 10.2 FL (6.5-10.1) H Neutrophils (%) (Auto) 83.2 % (45.0-75.0) H Lymphocytes (%) (Auto) 6.2 % (20.0-45.0) L Monocytes (%) (Auto) 10.2 % (1.0-10.0) H Eosinophils (%) (Auto) 0.0 % (0.0-3.0) Basophils (%) (Auto) 0.4 % (0.0-2.0) Erythrocyte Sedimentation Rate 116 MM/HR (0-30) H Sodium Level 131 MMOL/L (136-145) L Potassium Level 3.8 MMOL/L (3.5-5.1) Chloride Level 97 MMOL/L (98-107) L Carbon Dioxide Level 21 MMOL/L (21-32) Anion Gap 13 mmol/L (5-15) Blood Urea Nitrogen 42 mg/dL (7-18) H Creatinine 2.5 MG/DL (0.55-1.30) H Estimat Glomerular Filtration Rate 24.5 mL/min (>60) Glucose Level 414 MG/DL (74-106) H Hemoglobin A1c 14.8 % (4.3-6.0) H Calcium Level 9.3 MG/DL (8.5-10.1) Phosphorus Level 2.4 MG/DL (2.5-4.9) L Magnesium Level 1.7 MG/DL (1.8-2.4) L Total Bilirubin 0.5 MG/DL (0.2-1.0) Aspartate Amino Transf (AST/SGOT) 8 U/L (15-37) L Alanine Aminotransferase (ALT/SGPT) < 6 U/L (12-78) L Alkaline Phosphatase 79 U/L (46-116) C-Reactive Protein, Quantitative 27.7 mg/dL (0.00-0.90) H > 70.0 mg/dL (0.00-0.90) H Total Protein 6.6 G/DL (6.4-8.2) Albumin 1.3 G/DL (3.4-5.0) L Globulin 5.3 g/dL Albumin/Globulin Ratio 0.2 (1.0-2.7) L Urine Color Yellow Urine Appearance Cloudy Urine pH 5 (4.5-8.0) Urine Specific [place] 1.015 (1.005-1.035) Urine Protein 3+ (NEGATIVE) H Urine Glucose (UA) 4+ (NEGATIVE) H Urine Ketones 1+ (NEGATIVE) H Urine Occult Blood 2+ (NEGATIVE) H Urine Nitrite Negative (NEGATIVE) Urine Bilirubin Negative (NEGATIVE) Urine Urobilinogen 1 MG/DL (0.0-1.0) H Urine Leukocyte Esterase Negative (NEGATIVE) Urine RBC 2-4 /HPF (0 - 2) H Urine WBC 0-2 /HPF (0 - 2) Urine Squamous Epithelial Cells Occasional /LPF Urine Amorphous Sediment Many /LPF (NONE) H Urine Bacteria Moderate /HPF (NONE) H Height (Feet): 5 Height (Inches): 4.00 Weight (Pounds): 232 Medications Current Medications Medications (Trade) Dose Ordered Sig/Artemio Route PRN Reason Start Time Stop Time Status Last Admin Dose Admin Acetaminophen (Tylenol) 650 mg Q4H PRN ORAL fever (temp>100.5F) 04/21/17 18:15 05/21/17 18:14 04/22/17 20:37 Albuterol/ Ipratropium (Albuterol/ Ipratropium) 3 ml Q4H PRN HHN Shortness of Breath 04/21/17 18:15 04/26/17 18:14 Ceftriaxone Sodium 2 gm/ Sodium Chloride 55 ml @ 110 mls/hr Q24H IVPB 04/22/17 20:00 04/29/17 19:59 04/23/17 22:00 Dextrose (Dextrose 50%) STAT PRN IV Hypoglycemia 04/21/17 18:15 05/21/17 18:14 Heparin Sodium (Porcine) (Heparin 5000 units/ml) 5,000 units EVERY 12 HOURS SUBQ 04/21/17 21:00 05/21/17 20:59 04/23/17 22:03 Insulin Aspart (NovoLOG) BEFORE MEALS AND HS SUBQ 04/21/17 21:00 05/21/17 20:59 04/23/17 22:07 Insulin Aspart (NovoLOG) 8 units NOVOTIAC SUBQ 04/24/17 06:30 05/24/17 06:29 Insulin Detemir (Levemir) 24 units BEDTIME SUBQ 04/23/17 21:00 05/23/17 20:59 04/23/17 22:05 Lansoprazole (Prevacid) 30 mg DAILY ORAL 04/23/17 13:00 05/23/17 12:59 04/23/17 13:15 Metronidazole (Flagyl) 500 mg Q8HR ORAL 04/23/17 14:00 04/30/17 13:59 04/23/17 22:02 Morphine Sulfate (Morphine Sulfate) 2 mg Q4H PRN IVP Moderate Pain (Pain Scale 4-6) 04/21/17 18:15 04/28/17 18:14 Nitroglycerin (Ntg) 0.4 mg Q5M PRN SL Prn Chest Pain 04/21/17 18:15 05/21/17 18:14 Ondansetron HCl (Zofran) 4 mg Q6H PRN IVP Nausea & Vomiting 04/21/17 18:15 05/21/17 18:14 Polyethylene Glycol (Miralax) 17 gm DAILYPRN PRN ORAL Constipation 04/21/17 18:15 05/21/17 18:14 Temazepam (Restoril) 15 mg HSPRN PRN ORAL Insomnia 04/21/17 18:15 04/28/17 18:14 Assessment/Plan Status: stable Assessment/Plan adjustment d/o grief -no meds at this time -provided Remington Elizabeth M.D. Apr 23, 2017 23:29
--- NOTE | 2017-04-23 23:36 | General Progress Note ---
Assessment/Plan Status: stable Assessment/Plan adjustment d/o grief -no meds at this time -provided st/ro Subjective Date patient seen: Apr 22, 2017 Neurologic/Psychiatric: Reports: anxiety, depressed, emotional problems Allergies: Coded Allergies: PENICILLINS (Verified Allergy, Severe, SWOLLEN BODY, 04/23/17) Per Daughter, patient has tolerated Amoxicillin Tolerated Ceftriaxone 04/22/17 Objective Last 24 Hour Vital Signs Date Time Temp Pulse Resp B/P (MAP) Pulse Ox O2 Delivery O2 Flow Rate FiO2 04/23/17 21:00 99.2 104 20 147/79 94 Room Air 99.2 04/23/17 16:00 97.3 99 20 137/77 99 97.3 04/23/17 12:00 98.7 95 20 130/78 98 98.7 04/23/17 08:00 96.9 98 22 140/78 98 Room Air 96.9 04/23/17 08:00 97.3 98 20 140/78 98 97.3 04/23/17 04:00 99.3 92 20 137/73 96 99.3 04/23/17 00:00 99.1 93 20 140/78 96 99.1 Intake and Output 04/22/17 04/23/17 19:00 07:00 Intake Total 1200 ml 155 ml Balance 1200 ml 155 ml Intake Oral 1200 ml IV Total 155 ml # Voids 4 3 # Bowel Movements 1 Laboratory Tests 04/23/17 05:30: White Blood Count 16.5H, Red Blood Count 3.40L, Hemoglobin 9.4L, Hematocrit 28.8L, Mean Corpuscular Volume 85, Mean Corpuscular Hemoglobin 27.8, Mean Corpuscular Hemoglobin Concent 32.7, Red Cell Distribution Width 12.5, Platelet Count 217, Mean Platelet Volume 10.2H, Neutrophils (%) (Auto) 83.2H, Lymphocytes (%) (Auto) 6.2L, Monocytes (%) (Auto) 10.2H, Eosinophils (%) (Auto) 0.0, Basophils (%) (Auto) 0.4, Erythrocyte Sedimentation Rate 116H, Sodium Level 131L, Potassium Level 3.8, Chloride Level 97L, Carbon Dioxide Level 21, Anion Gap 13, Blood Urea Nitrogen 42H, Creatinine 2.5H, Estimat Glomerular Filtration Rate 24.5, Glucose Level 414H, Hemoglobin A1c 14.8H, Calcium Level 9.3, Phosphorus Level 2.4L, Magnesium Level 1.7L, Total Bilirubin 0.5, Aspartate Amino Transf (AST/SGOT) 8L, Alanine Aminotransferase (ALT/SGPT) < 6L, Alkaline Phosphatase 79, C-Reactive Protein, Quantitative 27.7H, Total Protein 6.6, Albumin 1.3L, Globulin 5.3, Albumin/Globulin Ratio 0.2L 04/23/17 15:10: C-Reactive Protein, Quantitative > 70.0H, Urine Color Yellow, Urine Appearance Cloudy, Urine pH 5, Urine Specific [place] 1.015, Urine Protein 3+H, Urine Glucose (UA) 4+H, Urine Ketones 1+H, Urine Occult Blood 2+H, Urine Nitrite Negative, Urine Bilirubin Negative, Urine Urobilinogen 1H, Urine Leukocyte Esterase Negative, Urine RBC 2-4H, Urine WBC 0-2, Urine Squamous Epithelial Cells Occasional, Urine Amorphous Sediment ManyH, Urine Bacteria ModerateH Height (Feet): 5 Height (Inches): 4.00 Weight (Pounds): 232 General Appearance: no apparent distress, alert Neurologic: oriented x 3, responsive, depressed affect Remington Kimbrough M.D. Apr 23, 2017 23:36
--- NOTE | 2017-04-23 23:36 | General Progress Note ---
Assessment/Plan Status: stable Assessment/Plan adjustment d/o grief -no meds at this time -provided st/ro Subjective Date patient seen: Apr 23, 2017 Neurologic/Psychiatric: Reports: anxiety, depressed, emotional problems Allergies: Coded Allergies: PENICILLINS (Verified Allergy, Severe, SWOLLEN BODY, 04/23/17) Per Daughter, patient has tolerated Amoxicillin Tolerated Ceftriaxone 04/22/17 Objective Last 24 Hour Vital Signs Date Time Temp Pulse Resp B/P (MAP) Pulse Ox O2 Delivery O2 Flow Rate FiO2 04/23/17 21:00 99.2 104 20 147/79 94 Room Air 99.2 04/23/17 16:00 97.3 99 20 137/77 99 97.3 04/23/17 12:00 98.7 95 20 130/78 98 98.7 04/23/17 08:00 96.9 98 22 140/78 98 Room Air 96.9 04/23/17 08:00 97.3 98 20 140/78 98 97.3 04/23/17 04:00 99.3 92 20 137/73 96 99.3 04/23/17 00:00 99.1 93 20 140/78 96 99.1 Intake and Output 04/22/17 04/23/17 19:00 07:00 Intake Total 1200 ml 155 ml Balance 1200 ml 155 ml Intake Oral 1200 ml IV Total 155 ml # Voids 4 3 # Bowel Movements 1 Laboratory Tests 04/23/17 05:30: White Blood Count 16.5H, Red Blood Count 3.40L, Hemoglobin 9.4L, Hematocrit 28.8L, Mean Corpuscular Volume 85, Mean Corpuscular Hemoglobin 27.8, Mean Corpuscular Hemoglobin Concent 32.7, Red Cell Distribution Width 12.5, Platelet Count 217, Mean Platelet Volume 10.2H, Neutrophils (%) (Auto) 83.2H, Lymphocytes (%) (Auto) 6.2L, Monocytes (%) (Auto) 10.2H, Eosinophils (%) (Auto) 0.0, Basophils (%) (Auto) 0.4, Erythrocyte Sedimentation Rate 116H, Sodium Level 131L, Potassium Level 3.8, Chloride Level 97L, Carbon Dioxide Level 21, Anion Gap 13, Blood Urea Nitrogen 42H, Creatinine 2.5H, Estimat Glomerular Filtration Rate 24.5, Glucose Level 414H, Hemoglobin A1c 14.8H, Calcium Level 9.3, Phosphorus Level 2.4L, Magnesium Level 1.7L, Total Bilirubin 0.5, Aspartate Amino Transf (AST/SGOT) 8L, Alanine Aminotransferase (ALT/SGPT) < 6L, Alkaline Phosphatase 79, C-Reactive Protein, Quantitative 27.7H, Total Protein 6.6, Albumin 1.3L, Globulin 5.3, Albumin/Globulin Ratio 0.2L 04/23/17 15:10: C-Reactive Protein, Quantitative > 70.0H, Urine Color Yellow, Urine Appearance Cloudy, Urine pH 5, Urine Specific [place] 1.015, Urine Protein 3+H, Urine Glucose (UA) 4+H, Urine Ketones 1+H, Urine Occult Blood 2+H, Urine Nitrite Negative, Urine Bilirubin Negative, Urine Urobilinogen 1H, Urine Leukocyte Esterase Negative, Urine RBC 2-4H, Urine WBC 0-2, Urine Squamous Epithelial Cells Occasional, Urine Amorphous Sediment ManyH, Urine Bacteria ModerateH Height (Feet): 5 Height (Inches): 4.00 Weight (Pounds): 232 General Appearance: no apparent distress, alert Neurologic: depressed affect Remington Kimbrough M.D. Apr 23, 2017 23:35
[2017-04-24] MEDS: metroNIDAZOLE 500mg tab ORAL SCH ×3 (05:58→21:04)
[2017-04-24] MEDS: NovoLOG Insulin Flexpen SUBQ SCH ×6 (06:00→20:27)
[2017-04-24] MEDS ORDERED: NovoLOG Insulin Flexpen SUBQ SCH (06:30)
[2017-04-24 06:54] LABS: BASOPHILS % (AUTO) 0.5 % (0.0-2.0); EOSINOPHILS % (AUTO) 0.1 % (0.0-3.0); HEMOGLOBIN 9.1 G/DL (12.0-16.0); LYMPHOCYTES % (AUTO) 8.9 % (20.0-45.0); MEAN CORPUSCULAR VOLUME 85 FL (80-99); MONOCYTES % (AUTO) 11.7 % (1.0-10.0); NEUTROPHILS % (AUTO) 78.9 % (45.0-75.0); PLATELET COUNT 217 K/UL (150-450); RED BLOOD COUNT 3.29 M/UL (4.20-5.40); RED CELL DISTRIBUTION WIDTH 12.8 % (11.6-14.8); WHITE BLOOD COUNT 17.4 K/UL (4.8-10.8)
[2017-04-24 07:39] LABS: ALANINE AMINOTRANSFERASE < 6 U/L (12-78); ALBUMIN 1.2 G/DL (3.4-5.0); ALBUMIN/GLOBULIN RATIO 0.2 (1.0-2.7); ALKALINE PHOSPHATASE 77 U/L (46-116); ANION GAP 11 mmol/L (5-15); ASPARTATE AMINO TRANSFERASE 6 U/L (15-37); BILIRUBIN,TOTAL 0.4 MG/DL (0.2-1.0); BLOOD UREA NITROGEN 41 mg/dL (7-18); CALCIUM 8.8 MG/DL (8.5-10.1); CARBON DIOXIDE 23 MMOL/L (21-32); CHLORIDE 98 MMOL/L (98-107); CHOLESTEROL 75 MG/DL (< 200); CREATINE KINASE 16 U/L (26-308); CREATININE 2.5 MG/DL (0.55-1.30); FERRITIN 486 NG/ML (8-388); GAMMA GLUTAMYL TRANSPEPTIDASE 22 U/L (5-85); HDL CHOLESTEROL 16 MG/DL (40-60); PHOSPHORUS 2.3 MG/DL (2.5-4.9); POTASSIUM 3.4 MMOL/L (3.5-5.1); SODIUM 132 MMOL/L (136-145); TRIGLYCERIDES 87 MG/DL (30-150)
[2017-04-24 08:00] VITALS: BP 147/77
--- NOTE | 2017-04-24 08:24 | Diagnostic Imaging Report ---
Indication: Acute renal failure Technique: Grayscale and duplex images of the kidneys, retroperitoneum, and bladder were obtained. Comparison: None. Reference made to abdomen pelvis CT dated 05/02/2011 Findings: Right kidney measures 11 cm in length. Left kidney measures 12 cm in length. Both kidneys demonstrate slightly increased echogenicity and cortical thinning. No hydronephrosis. Left kidney demonstrates a prominent extrarenal pelvis, also demonstrated on the prior CT. A calcification is seen in the interpolar region of the left kidney. Right kidney demonstrates a 14 mm upper pole cyst and a 14 mm lower pole cyst. Normal inferior vena cava. Bladder is empty, contains a Rdz catheter. Impression: Negative for hydronephrosis Equivocal mildly increased renal echogenicity, if real could indicate medical renal disease Rdz catheter within an empty bladder Incidental finding of right renal cysts.
[2017-04-24] MEDS: Heparin 5000 units/ml inj SUBQ SCH ×2 (09:06→20:26)
[2017-04-24] MEDS: Levemir Flexpen SUBQ SCH ×2 (09:27→20:26)
--- NOTE | 2017-04-24 10:48 | General Surgery Progress Note ---
General Surgery-Progress Note Subjective Additional Comments doing well. states she feels better. no n/v/f/c. Objective Last 24 Hour Vital Signs Date Time Temp Pulse Resp B/P (MAP) Pulse Ox O2 Delivery O2 Flow Rate FiO2 04/24/17 08:00 98.9 92 18 147/77 98 Room Air 98.9 04/23/17 21:00 99.2 104 20 147/79 94 Room Air 99.2 04/23/17 16:00 97.3 99 20 137/77 99 97.3 04/23/17 12:00 98.7 95 20 130/78 98 98.7 I&O Intake and Output 04/23/17 04/24/17 19:00 07:00 Intake Total 240 ml 55 ml Output Total 800 ml Balance 240 ml -745 ml Intake Oral 240 ml IV Total 55 ml Output Urine Total 800 ml # Voids 4 # Bowel Movements 1 Dressing: saturated Wound: clean - with dressings Drains: none Cardiovascular: RSR Respiratory: clear Abdomen: soft, flat, non-tender Extremities: no cyanosis, other - right amputation stump okay. left side with dressings. abscess cavity with packing. ulcer with dressings. Laboratory Tests Test 04/23/17 15:10 04/24/17 05:35 Urine Color Yellow Urine Appearance Cloudy Urine pH 5 (4.5-8.0) Urine Specific [place] 1.015 (1.005-1.035) Urine Protein 3+ (NEGATIVE) H Urine Glucose (UA) 4+ (NEGATIVE) H Urine Ketones 1+ (NEGATIVE) H Urine Occult Blood 2+ (NEGATIVE) H Urine Nitrite Negative (NEGATIVE) Urine Bilirubin Negative (NEGATIVE) Urine Urobilinogen 1 MG/DL (0.0-1.0) H Urine Leukocyte Esterase Negative (NEGATIVE) Urine RBC 2-4 /HPF (0 - 2) H Urine WBC 0-2 /HPF (0 - 2) Urine Squamous Epithelial Cells Occasional /LPF Urine Amorphous Sediment Many /LPF (NONE) H Urine Bacteria Moderate /HPF (NONE) H C-Reactive Protein, Quantitative > 70.0 mg/dL (0.00-0.90) H White Blood Count 17.4 K/UL (4.8-10.8) H Red Blood Count 3.29 M/UL (4.20-5.40) L Hemoglobin 9.1 G/DL (12.0-16.0) L Hematocrit 28.0 % (37.0-47.0) L Mean Corpuscular Volume 85 FL (80-99) Mean Corpuscular Hemoglobin 27.5 PG (27.0-31.0) Mean Corpuscular Hemoglobin Concent 32.3 G/DL (32.0-36.0) Red Cell Distribution Width 12.8 % (11.6-14.8) Platelet Count 217 K/UL (150-450) Mean Platelet Volume 9.6 FL (6.5-10.1) Neutrophils (%) (Auto) 78.9 % (45.0-75.0) H Lymphocytes (%) (Auto) 8.9 % (20.0-45.0) L Monocytes (%) (Auto) 11.7 % (1.0-10.0) H Eosinophils (%) (Auto) 0.1 % (0.0-3.0) Basophils (%) (Auto) 0.5 % (0.0-2.0) Sodium Level 132 MMOL/L (136-145) L Potassium Level 3.4 MMOL/L (3.5-5.1) L Chloride Level 98 MMOL/L (98-107) Carbon Dioxide Level 23 MMOL/L (21-32) Anion Gap 11 mmol/L (5-15) Blood Urea Nitrogen 41 mg/dL (7-18) H Creatinine 2.5 MG/DL (0.55-1.30) H Estimat Glomerular Filtration Rate 24.5 mL/min (>60) Glucose Level 341 MG/DL (74-106) H Hemoglobin A1c 14.9 % (4.3-6.0) H Uric Acid 7.7 MG/DL (2.6-7.2) H Calcium Level 8.8 MG/DL (8.5-10.1) Phosphorus Level 2.3 MG/DL (2.5-4.9) L Magnesium Level 1.7 MG/DL (1.8-2.4) L Ferritin 486 NG/ML (8-388) H Total Bilirubin 0.4 MG/DL (0.2-1.0) Gamma Glutamyl Transpeptidase 22 U/L (5-85) Aspartate Amino Transf (AST/SGOT) 6 U/L (15-37) L Alanine Aminotransferase (ALT/SGPT) < 6 U/L (12-78) L Alkaline Phosphatase 77 U/L (46-116) Total Creatine Kinase 16 U/L (26-308) L Pro-B-Type Natriuretic Peptide 1915 pg/mL (0-125) H Total Protein 6.6 G/DL (6.4-8.2) Albumin 1.2 G/DL (3.4-5.0) L Globulin 5.4 g/dL Albumin/Globulin Ratio 0.2 (1.0-2.7) L Triglycerides Level 87 MG/DL (30-150) Cholesterol Level 75 MG/DL (< 200) LDL Cholesterol 44 mg/dL (<100) HDL Cholesterol 16 MG/DL (40-60) L Cholesterol/HDL Ratio 4.7 (3.3-4.4) H Vitamin B12 Level 1740 PG/ML (193-986) H Folate 6.5 NG/ML (8.6-58.9) L Thyroid Stimulating Hormone (TSH) < 0.007 uiU/mL (0.358-3.740) Plan Problems: (1) Abscess of left leg Assessment & Plan: large abscess in left distal lateral leg down to muscle and tendon. large area of fluctuance. with patients consent incision and drainage was performed at bedside on 04/23/2017. 50-75cc of pus evacuated and sent for micro. wound cleaned and dressings applied. afebrile, HD stable, leukocytosis -MRI of left leg to evaluate for intramuscular or other deep abscess -cont Abx -dressings and packing TID will follow wound with recs. f/u micro cultures. thank you for this consult. Sandro Ramirez Apr 24, 2017 10:48
--- NOTE | 2017-04-24 11:29 | Wound Care Consultation ---
Wound Assessment Wound Assessment : Wound Number: 1 Wound Present on Admission: Yes New Wound: No Status Change of Wound: No Wound Location Body Site Modif: left, lateral Wound Location Body Site: malleolus/ankle Wound Type: abscess Tran Test: Does not Tran Wound Thickness: Full Thickness Wound Length: 5.0 Wound Width: 5.0 Wound Depth: utd Percent of Wound Bed Yellow/Wh: 100 Wound Drainage Description: Serosanguineous Wound Drainage Amount: Copious Wound Drainage Odor: None/Absent Tissue Surrounding Wound: Macerated - and with fluctuance on big toe, plantar foot area and lateral lower leg distal to malleolus Wound General Appearance: Draining, Necrotic, Tendon Visible Wound Comment #[address] Ramirez for left foot abscess open necrotic wound. Please follow MD's order. KIKA OLSEN RN Apr 24, 2017 11:29
[2017-04-24 12:00] VITALS: BP 144/76
--- NOTE | 2017-04-24 13:03 | Consultation ---
Consult Note Assessment/Plan Patient already seen by general surgery and being managed for Podiatric wound issues. Will defer care to Dr Ramirez. Re-consult if needed Thank you. Zay Schwarz DPM Apr 24, 2017 13:03
[2017-04-24] MEDS ORDERED: Phospha 250 Neutral tab ORAL ONE (13:15)
--- NOTE | 2017-04-24 13:18 | Nephrology Progress Note ---
Assessment/Plan Problem List: (1) CKD (chronic kidney disease) (2) Diabetic nephropathy (3) Anemia in chronic kidney disease Assessment Renal Assessment: Renal failure- ? Diabetic nephropathy , CKD Anemia HypoAlbuminemia r/o Nephrotic State Other: Sepsis due to L Leg cellulitis/abscess c/w bacteremia- r/o Strep necrotizing infection Fever/leukocytosis Dm2 HTN hx of R transmetatarsal amputation reported PNC allergy- Plan Plan: UA 24 H urine protein Anemia li avoid nephrotoxics per orders Subjective ROS Limited/Unobtainable: No Constitutional: Reports: malaise, weakness Objective Objective Last 24 Hour Vital Signs Date Time Temp Pulse Resp B/P (MAP) Pulse Ox O2 Delivery O2 Flow Rate FiO2 04/24/17 12:00 98.2 91 19 144/76 98 Room Air 98.2 04/24/17 08:00 98.9 92 18 147/77 98 Room Air 98.9 04/23/17 21:00 99.2 104 20 147/79 94 Room Air 99.2 04/23/17 16:00 97.3 99 20 137/77 99 97.3 Intake and Output 04/23/17 04/24/17 19:00 07:00 Intake Total 240 ml 55 ml Output Total 800 ml Balance 240 ml -745 ml Intake Oral 240 ml IV Total 55 ml Output Urine Total 800 ml # Voids 4 # Bowel Movements 1 Laboratory Tests 04/23/17 15:10: Urine Color Yellow, Urine Appearance Cloudy, Urine pH 5, Urine Specific B[place] 1.015, Urine Protein 3+H, Urine Glucose (UA) 4+H, Urine Ketones 1+H, Urine Occult Blood 2+H, Urine Nitrite Negative, Urine Bilirubin Negative, Urine Urobilinogen 1H, Urine Leukocyte Esterase Negative, Urine RBC 2-4H, Urine WBC 0- 2, Urine Squamous Epithelial Cells Occasional, Urine Amorphous Sediment ManyH, Urine Bacteria ModerateH, C-Reactive Protein, Quantitative > 70.0H 04/24/17 05:35: White Blood Count 17.4H, Red Blood Count 3.29L, Hemoglobin 9.1L, Hematocrit 28.0L, Mean Corpuscular Volume 85, Mean Corpuscular Hemoglobin 27.5, Mean Corpuscular Hemoglobin Concent 32.3, Red Cell Distribution Width 12.8, Platelet Count 217, Mean Platelet Volume 9.6, Neutrophils (%) (Auto) 78.9H, Lymphocytes ( %) (Auto) 8.9L, Monocytes (%) (Auto) 11.7H, Eosinophils (%) (Auto) 0.1, Basophils (%) (Auto) 0.5, Sodium Level 132L, Potassium Level 3.4L, Chloride Level 98, Carbon Dioxide Level 23, Anion Gap 11, Blood Urea Nitrogen 41H, Creatinine 2.5H, Estimat Glomerular Filtration Rate 24.5, Glucose Level 341H, Hemoglobin A1c 14.9H, Uric Acid 7.7H, Calcium Level 8.8, Phosphorus Level 2.3L, Magnesium Level 1.7L, Ferritin 486H, Total Bilirubin 0.4, Gamma Glutamyl Transpeptidase 22, Aspartate Amino Transf (AST/SGOT) 6L, Alanine Aminotransferase (ALT/SGPT) < 6L, Alkaline Phosphatase 77, Total Creatine Kinase 16L, Pro-B-Type Natriuretic Peptide 1915H, Total Protein 6.6, Albumin 1.2L, Globulin 5.4, Albumin/Globulin Ratio 0.2L, Triglycerides Level 87, Cholesterol Level 75, LDL Cholesterol 44, HDL Cholesterol 16L, Cholesterol/HDL Ratio 4.7H, Vitamin B12 Level 1740H, Folate 6.5L, Thyroid Stimulating Hormone ( TSH) < 0.007L Height (Feet): 5 Height (Inches): 4.00 Weight (Pounds): 232 General Appearance: no apparent distress Cardiovascular: tachycardia Respiratory/Chest: decreased breath sounds Abdomen: distended IBETH ROSAS Apr 24, 2017 13:18
--- NOTE | 2017-04-24 15:09 | Pulmonology Progress Note ---
Assessment/Plan Problems: (1) Cellulitis, leg (2) Diabetes mellitus (3) Abscess of left leg (4) Bacteremia Assessment/Plan iv abx sliding sclae wound care s/p drainage of the abscess + osteomyelitis needs a few weeks of IV abx repeat BC are negative, will order PICC line Subjective ROS Limited/Unobtainable: No Allergies: Coded Allergies: PENICILLINS (Verified Allergy, Severe, SWOLLEN BODY, 04/23/17) Per Daughter, patient has tolerated Amoxicillin Tolerated Ceftriaxone 04/22/17 Objective Last 24 Hour Vital Signs Date Time Temp Pulse Resp B/P (MAP) Pulse Ox O2 Delivery O2 Flow Rate FiO2 04/24/17 12:00 98.2 91 19 144/76 98 Room Air 98.2 04/24/17 08:00 98.9 92 18 147/77 98 Room Air 98.9 04/23/17 21:00 99.2 104 20 147/79 94 Room Air 99.2 04/23/17 16:00 97.3 99 20 137/77 99 97.3 Intake and Output 04/23/17 04/24/17 19:00 07:00 Intake Total 240 ml 55 ml Output Total 800 ml Balance 240 ml -745 ml Intake Oral 240 ml IV Total 55 ml Output Urine Total 800 ml # Voids 4 # Bowel Movements 1 Objective General Appearance: cachectic HEENT: normocephalic, atraumatic, anicteric Respiratory/Chest: chest wall non-tender, Breasts: no masses Cardiovascular: normal peripheral pulses Abdomen: normal bowel sounds Genitourinary: normal external genitalia Microbiology Date/Time Source Procedure Growth Status 04/22/17 17:45 Blood Blood Culture - Preliminary NO GROWTH AFTER 24 HOURS Resulted 04/22/17 17:30 Blood Blood Culture - Preliminary NO GROWTH AFTER 24 HOURS Resulted 04/21/17 18:30 Blood Blood Culture - Preliminary Strep Agalactiae Group B Resulted 04/21/17 18:20 Blood Blood Culture - Preliminary Strep Agalactiae Group B Staphylococcus Sp Coag Neg Resulted 04/22/17 03:00 Other(Specify in comment) Gram Stain - Final Resulted 04/22/17 03:00 Wound Culture - Preliminary Staphylococcus Aureus Gram Negative Bacillus 2 Streptococcus Group B Resulted 04/21/17 19:39 Nasal Nares Left MRSA Culture - Final NO METHICILLIN RESISTANT STAPH AUREUS... Complete 04/23/17 15:10 Urine,Clean Catch Urine Culture - Preliminary NO GROWTH Resulted 04/22/17 17:20 Foot Left Gram Stain - Final Resulted 04/22/17 17:20 Wound Culture - Preliminary Staphylococcus Aureus Strep Species, Gamma-Hemolytic Gram Negative Bacillus 3 Resulted 04/21/17 19:39 Rectum VRE Culture - Final NO VANCOMYCIN RESISTANT ENTEROCOCCUS ... Complete Laboratory Tests 04/23/17 15:10: Urine Color Yellow, Urine Appearance Cloudy, Urine pH 5, Urine Specific [place] 1.015, Urine Protein 3+H, Urine Glucose (UA) 4+H, Urine Ketones 1+H, Urine Occult Blood 2+H, Urine Nitrite Negative, Urine Bilirubin Negative, Urine Urobilinogen 1H, Urine Leukocyte Esterase Negative, Urine RBC 2-4H, Urine WBC 0- 2, Urine Squamous Epithelial Cells Occasional, Urine Amorphous Sediment ManyH, Urine Bacteria ModerateH, C-Reactive Protein, Quantitative > 70.0H 04/24/17 05:35: White Blood Count 17.4H, Red Blood Count 3.29L, Hemoglobin 9.1L, Hematocrit 28.0L, Mean Corpuscular Volume 85, Mean Corpuscular Hemoglobin 27.5, Mean Corpuscular Hemoglobin Concent 32.3, Red Cell Distribution Width 12.8, Platelet Count 217, Mean Platelet Volume 9.6, Neutrophils (%) (Auto) 78.9H, Lymphocytes ( %) (Auto) 8.9L, Monocytes (%) (Auto) 11.7H, Eosinophils (%) (Auto) 0.1, Basophils (%) (Auto) 0.5, Sodium Level 132L, Potassium Level 3.4L, Chloride Level 98, Carbon Dioxide Level 23, Anion Gap 11, Blood Urea Nitrogen 41H, Creatinine 2.5H, Estimat Glomerular Filtration Rate 24.5, Glucose Level 341H, Hemoglobin A1c 14.9H, Uric Acid 7.7H, Calcium Level 8.8, Phosphorus Level 2.3L, Magnesium Level 1.7L, Ferritin 486H, Total Bilirubin 0.4, Gamma Glutamyl Transpeptidase 22, Aspartate Amino Transf (AST/SGOT) 6L, Alanine Aminotransferase (ALT/SGPT) < 6L, Alkaline Phosphatase 77, Total Creatine Kinase 16L, Pro-B-Type Natriuretic Peptide 1915H, Total Protein 6.6, Albumin 1.2L, Globulin 5.4, Albumin/Globulin Ratio 0.2L, Triglycerides Level 87, Cholesterol Level 75, LDL Cholesterol 44, HDL Cholesterol 16L, Cholesterol/HDL Ratio 4.7H, Vitamin B12 Level 1740H, Folate 6.5L, Thyroid Stimulating Hormone ( TSH) < 0.007L Current Medications Medications (Trade) Dose Ordered Sig/Artemio Route PRN Reason Start Time Stop Time Status Last Admin Dose Admin Acetaminophen (Tylenol) 650 mg Q4H PRN ORAL fever (temp>100.5F) 04/21/17 18:15 05/21/17 18:14 04/22/17 20:37 Albuterol/ Ipratropium (Albuterol/ Ipratropium) 3 ml Q4H PRN HHN Shortness of Breath 04/21/17 18:15 04/26/17 18:14 Ceftriaxone Sodium 2 gm/ Sodium Chloride 55 ml @ 110 mls/hr Q24H IVPB 04/22/17 20:00 04/29/17 19:59 04/23/17 22:00 Dextrose (Dextrose 50%) STAT PRN IV Hypoglycemia 04/21/17 18:15 05/21/17 18:14 Heparin Sodium (Porcine) (Heparin 5000 units/ml) 5,000 units EVERY 12 HOURS SUBQ 04/21/17 21:00 05/21/17 20:59 04/24/17 09:06 Insulin Aspart (NovoLOG) BEFORE MEALS AND HS SUBQ 04/21/17 21:00 05/21/17 20:59 04/24/17 12:38 Insulin Aspart (NovoLOG) 12 units NOVOTIAC SUBQ 04/24/17 11:50 05/24/17 11:49 Insulin Detemir (Levemir) 24 units Q12HR SUBQ 04/24/17 09:00 05/24/17 08:59 04/24/17 09:27 Lansoprazole (Prevacid) 30 mg DAILY ORAL 04/23/17 13:00 05/23/17 12:59 04/24/17 09:05 Metronidazole (Flagyl) 500 mg Q8HR ORAL 04/23/17 14:00 04/30/17 13:59 04/24/17 14:29 Morphine Sulfate (Morphine Sulfate) 2 mg Q4H PRN IVP Moderate Pain (Pain Scale 4-6) 04/21/17 18:15 04/28/17 18:14 Nitroglycerin (Ntg) 0.4 mg Q5M PRN SL Prn Chest Pain 04/21/17 18:15 05/21/17 18:14 Ondansetron HCl (Zofran) 4 mg Q6H PRN IVP Nausea & Vomiting 04/21/17 18:15 05/21/17 18:14 Polyethylene Glycol (Miralax) 17 gm DAILYPRN PRN ORAL Constipation 04/21/17 18:15 05/21/17 18:14 Temazepam (Restoril) 15 mg HSPRN PRN ORAL Insomnia 04/21/17 18:15 04/28/17 18:14 Ruby Richmond MD Apr 24, 2017 15:09
[2017-04-24 16:00] VITALS: BP 134/80
--- NOTE | 2017-04-24 16:05 | Infectious Diseases Prog Note ---
Assessment/Plan Assessment/Plan Assessment: Sepsis 2ry to L Leg cellulitis., large abscess (polymicrobial), infected ankle wound and OM c/w bacteremia 2ry to Group B strep - s/p bedside I+D 04/23: large abscess in left distal lateral leg down to muscle and tendon. large area of fluctuance. 50-75cc of pus evacuated; wound cx p -Xray R tibia/fibula/ankle: Evidence of multiple lateral soft tissue ulcers in the distal leg and ankle. Evidence of destructive change of the distal fibula. This is highly suspicious for acute osteomyelitis. No acute bony trauma -wound cx from purulent discahrge 04/22 #1: +2 S. aureus (sensi pending), <1+ GNR, +4 GBS; #2 +2 S. aureus, +3 strep gamma hemolytic, +4 GNB -ESR 116, CRP 27.7 GBS bacteremia- -Bcx 04/21 2/4 + GBS, 1/4 CoNS (contaminant); Bcx 04/22 NTD Fever/leukocytosis- fever improving; leukocytosis persistent- r/o deep tissue abscess Dm2 HTN hx of R transmetatarsal amputation reported PNC allergy- however tolerates Amoxicillin per daughter Plan: -Continue Ceftriaxone #4 for Group B strep cellulitis/abscess and bacteremia -Continue Flagyl #2 for anaerobic coverage and resume IV Vancomycin #3 pending sensi S. aureus -04/23 SP IV Vancomycin #2 and Clindamycin #2 -04/22 SP IV Aztreonam #2 -F/u MRI L leg to eval for deeper abscess -f/u 2 sets of Bcx -appreciate surgery input -f/u cx -monitor CBC/BMP, temperatures -wound care Thank you for this consultation. Will continue to follow along with you. Discussed with RN, and Dr Ramirez Subjective Allergies: Coded Allergies: PENICILLINS (Verified Allergy, Severe, SWOLLEN BODY, 04/23/17) Per Daughter, patient has tolerated Amoxicillin Tolerated Ceftriaxone 04/22/17 Subjective afebrile in >36hrs leukocytosis persistent repeat Bcx NTD Objective Vital Signs Last 24 Hour Vital Signs Date Time Temp Pulse Resp B/P (MAP) Pulse Ox O2 Delivery O2 Flow Rate FiO2 04/24/17 12:00 98.2 91 19 144/76 98 Room Air 98.2 04/24/17 08:00 98.9 92 18 147/77 98 Room Air 98.9 04/23/17 21:00 99.2 104 20 147/79 94 Room Air 99.2 04/23/17 16:00 97.3 99 20 137/77 99 97.3 Height (Feet): 5 Height (Inches): 4.00 Weight (Pounds): 232 Objective General Appearance: WD/WN Lines, tubes and drains: peripheral HEENT: normocephalic, atraumatic Neck: non-tender, normal alignment Respiratory/Chest: chest wall non-tender, lungs clear Cardiovascular/Chest: normal peripheral pulses, normal rate Abdomen: normal bowel sounds, non tender Ext: R foot s/p metatarsal amputation- stump with no signs of infection L foot: dressings in place Microbiology Date/Time Source Procedure Growth Status 04/22/17 17:45 Blood Blood Culture - Preliminary NO GROWTH AFTER 24 HOURS Resulted 04/22/17 17:30 Blood Blood Culture - Preliminary NO GROWTH AFTER 24 HOURS Resulted 04/21/17 18:30 Blood Blood Culture - Preliminary Strep Agalactiae Group B Resulted 04/21/17 18:20 Blood Blood Culture - Preliminary Strep Agalactiae Group B Staphylococcus Sp Coag Neg Resulted 04/22/17 03:00 Other(Specify in comment) Gram Stain - Final Resulted 04/22/17 03:00 Wound Culture - Preliminary Staphylococcus Aureus Gram Negative Bacillus 2 Streptococcus Group B Resulted 04/21/17 19:39 Nasal Nares Left MRSA Culture - Final NO METHICILLIN RESISTANT STAPH AUREUS... Complete 04/23/17 15:10 Urine,Clean Catch Urine Culture - Preliminary NO GROWTH Resulted 04/22/17 17:20 Foot Left Gram Stain - Final Resulted 04/22/17 17:20 Wound Culture - Preliminary Staphylococcus Aureus Strep Species, Gamma-Hemolytic Gram Negative Bacillus 3 Resulted 04/21/17 19:39 Rectum VRE Culture - Final NO VANCOMYCIN RESISTANT ENTEROCOCCUS ... Complete Laboratory Tests Test 04/24/17 05:35 White Blood Count 17.4 K/UL (4.8-10.8) H Red Blood Count 3.29 M/UL (4.20-5.40) L Hemoglobin 9.1 G/DL (12.0-16.0) L Hematocrit 28.0 % (37.0-47.0) L Mean Corpuscular Volume 85 FL (80-99) Mean Corpuscular Hemoglobin 27.5 PG (27.0-31.0) Mean Corpuscular Hemoglobin Concent 32.3 G/DL (32.0-36.0) Red Cell Distribution Width 12.8 % (11.6-14.8) Platelet Count 217 K/UL (150-450) Mean Platelet Volume 9.6 FL (6.5-10.1) Neutrophils (%) (Auto) 78.9 % (45.0-75.0) H Lymphocytes (%) (Auto) 8.9 % (20.0-45.0) L Monocytes (%) (Auto) 11.7 % (1.0-10.0) H Eosinophils (%) (Auto) 0.1 % (0.0-3.0) Basophils (%) (Auto) 0.5 % (0.0-2.0) Sodium Level 132 MMOL/L (136-145) L Potassium Level 3.4 MMOL/L (3.5-5.1) L Chloride Level 98 MMOL/L (98-107) Carbon Dioxide Level 23 MMOL/L (21-32) Anion Gap 11 mmol/L (5-15) Blood Urea Nitrogen 41 mg/dL (7-18) H Creatinine 2.5 MG/DL (0.55-1.30) H Estimat Glomerular Filtration Rate 24.5 mL/min (>60) Glucose Level 341 MG/DL (74-106) H Hemoglobin A1c 14.9 % (4.3-6.0) H Uric Acid 7.7 MG/DL (2.6-7.2) H Calcium Level 8.8 MG/DL (8.5-10.1) Phosphorus Level 2.3 MG/DL (2.5-4.9) L Magnesium Level 1.7 MG/DL (1.8-2.4) L Ferritin 486 NG/ML (8-388) H Total Bilirubin 0.4 MG/DL (0.2-1.0) Gamma Glutamyl Transpeptidase 22 U/L (5-85) Aspartate Amino Transf (AST/SGOT) 6 U/L (15-37) L Alanine Aminotransferase (ALT/SGPT) < 6 U/L (12-78) L Alkaline Phosphatase 77 U/L (46-116) Total Creatine Kinase 16 U/L (26-308) L Pro-B-Type Natriuretic Peptide 1915 pg/mL (0-125) H Total Protein 6.6 G/DL (6.4-8.2) Albumin 1.2 G/DL (3.4-5.0) L Globulin 5.4 g/dL Albumin/Globulin Ratio 0.2 (1.0-2.7) L Triglycerides Level 87 MG/DL (30-150) Cholesterol Level 75 MG/DL (< 200) LDL Cholesterol 44 mg/dL (<100) HDL Cholesterol 16 MG/DL (40-60) L Cholesterol/HDL Ratio 4.7 (3.3-4.4) H Vitamin B12 Level 1740 PG/ML (193-986) H Folate 6.5 NG/ML (8.6-58.9) L Thyroid Stimulating Hormone (TSH) < 0.007 uiU/mL (0.358-3.740) Current Medications Medications (Trade) Dose Ordered Sig/Artemio Route PRN Reason Start Time Stop Time Status Last Admin Dose Admin Acetaminophen (Tylenol) 650 mg Q4H PRN ORAL fever (temp>100.5F) 04/21/17 18:15 05/21/17 18:14 04/22/17 20:37 Albuterol/ Ipratropium (Albuterol/ Ipratropium) 3 ml Q4H PRN HHN Shortness of Breath 04/21/17 18:15 18 18:14 Ceftriaxone Sodium 2 gm/ Sodium Chloride 55 ml @ 110 mls/hr Q24H IVPB 04/22/17 20:00 04/29/17 19:59 04/23/17 22:00 Dextrose (Dextrose 50%) STAT PRN IV Hypoglycemia 04/21/17 18:15 05/21/17 18:14 Heparin Sodium (Porcine) (Heparin 5000 units/ml) 5,000 units EVERY 12 HOURS SUBQ 04/21/17 21:00 05/21/17 20:59 04/24/17 09:06 Insulin Aspart (NovoLOG) BEFORE MEALS AND HS SUBQ 04/21/17 21:00 05/21/17 20:59 04/24/17 12:38 Insulin Aspart (NovoLOG) 12 units NOVOTIAC SUBQ 04/24/17 11:50 05/24/17 11:49 Insulin Detemir (Levemir) 24 units Q12HR SUBQ 04/24/17 09:00 05/24/17 08:59 04/24/17 09:27 Lansoprazole (Prevacid) 30 mg DAILY ORAL 04/23/17 13:00 05/23/17 12:59 04/24/17 09:05 Metronidazole (Flagyl) 500 mg Q8HR ORAL 04/23/17 14:00 04/30/17 13:59 04/24/17 14:29 Morphine Sulfate (Morphine Sulfate) 2 mg Q4H PRN IVP Moderate Pain (Pain Scale 4-6) 04/21/17 18:15 04/28/17 18:14 Nitroglycerin (Ntg) 0.4 mg Q5M PRN SL Prn Chest Pain 04/21/17 18:15 05/21/17 18:14 Ondansetron HCl (Zofran) 4 mg Q6H PRN IVP Nausea & Vomiting 04/21/17 18:15 05/21/17 18:14 Polyethylene Glycol (Miralax) 17 gm DAILYPRN PRN ORAL Constipation 04/21/17 18:15 05/21/17 18:14 Temazepam (Restoril) 15 mg HSPRN PRN ORAL Insomnia 04/21/17 18:15 04/28/17 18:14 Faye Foy M.D. Apr 24, 2017 16:05
--- NOTE | 2017-04-24 16:23 | Diagnostic Imaging Report ---
Indication: Nonhealing diabetic wound on left ankle near lateral malleolus Technique: Coronal, sagittal, and axial T 1 fast spin echo and fast spin echo STIR images obtained of the ankle and hindfoot. Comparison: Reference made to plain radiographs 04/23/2017 Findings: A marker ambrose a soft tissue ulcer lateral to the lateral malleolus. There is also an ulcer in the lateral soft tissues of the distal leg. Increased STIR and decreased T1 signal is seen in the distal fibula. There is obliteration of the lateral margins of the distal fibula, concordant with the findings described on recent radiograph. Faint abnormal STIR and faint decreased T1 signal is seen deep to the articulation with the talus. Faint increased STIR and decreased T1 signal is seen within the talus. No definite tibial signal abnormality demonstrated. Soft tissue edema is seen medial to the medial malleolus as well as surrounding the distal fibula. No definite drainable fluid collection demonstrated. Edema of the soft tissues of the dorsum of the midfoot also noted. Abnormal increased T1 signal is seen within the peroneus longus tendon as it passes medial to the more cephalad soft tissue ulcer, and as it passes through the area of edema lateral to the lateral malleolus. The peroneus brevis tendon is not well seen distal to the lateral malleolus and significant damage to the structure by the surrounding inflammation as are both Impression: Positive for osteomyelitis of the distal fibula, with evidence of bony destruction More subtle marrow changes as described in the talus and calcaneus, also suspicious for osteomyelitis Evidence of soft tissue cellulitis both laterally and medially. No drainable abscess Abnormal peroneus longus tendon, may indicate inflammation or infection. Possible damage to the distal peroneus brevis tendon
[2017-04-24] MEDS ORDERED: Lidocaine 1% Plain 30 ml INJ PRN (16:30)
[2017-04-24] MEDS ORDERED: Vancomycin 1.5 GM/D5W 250ML IVPB ONE (18:00)
[2017-04-24 20:00] VITALS: BP 136/69
[2017-04-24] MEDS: cefTRIAXone 2 GM in NS 55 ML IVPB SCH (21:49)
--- NOTE | 2017-04-24 22:40 | General Progress Note ---
Assessment/Plan Status: stable, progressing Assessment/Plan adjustment d/o grief -no meds at this time -provided st/ro Subjective Date patient seen: Apr 24, 2017 Neurologic/Psychiatric: Reports: anxiety, depressed, emotional problems Allergies: Coded Allergies: PENICILLINS (Verified Allergy, Severe, SWOLLEN BODY, 04/23/17) Per Daughter, patient has tolerated Amoxicillin Tolerated Ceftriaxone 04/22/17 Objective Last 24 Hour Vital Signs Date Time Temp Pulse Resp B/P (MAP) Pulse Ox O2 Delivery O2 Flow Rate FiO2 04/24/17 20:00 100.0 94 20 136/69 96 100.0 04/24/17 19:30 92 16 Room Air 21 04/24/17 17:46 100.0 04/24/17 16:47 100.1 04/24/17 16:00 100.1 95 18 134/80 99 Room Air 100.1 04/24/17 12:00 98.2 91 19 144/76 98 Room Air 98.2 04/24/17 08:00 98.9 92 18 147/77 98 Room Air 98.9 Intake and Output 04/23/17 04/24/17 19:00 07:00 Intake Total 240 ml 55 ml Output Total 800 ml Balance 240 ml -745 ml Intake Oral 240 ml IV Total 55 ml Output Urine Total 800 ml # Voids 4 # Bowel Movements 1 Laboratory Tests 04/24/17 05:35: White Blood Count 17.4H, Red Blood Count 3.29L, Hemoglobin 9.1L, Hematocrit 28.0L, Mean Corpuscular Volume 85, Mean Corpuscular Hemoglobin 27.5, Mean Corpuscular Hemoglobin Concent 32.3, Red Cell Distribution Width 12.8, Platelet Count 217, Mean Platelet Volume 9.6, Neutrophils (%) (Auto) 78.9H, Lymphocytes ( %) (Auto) 8.9L, Monocytes (%) (Auto) 11.7H, Eosinophils (%) (Auto) 0.1, Basophils (%) (Auto) 0.5, Sodium Level 132L, Potassium Level 3.4L, Chloride Level 98, Carbon Dioxide Level 23, Anion Gap 11, Blood Urea Nitrogen 41H, Creatinine 2.5H, Estimat Glomerular Filtration Rate 24.5, Glucose Level 341H, Hemoglobin A1c 14.9H, Uric Acid 7.7H, Calcium Level 8.8, Phosphorus Level 2.3L, Magnesium Level 1.7L, Ferritin 486H, Total Bilirubin 0.4, Gamma Glutamyl Transpeptidase 22, Aspartate Amino Transf (AST/SGOT) 6L, Alanine Aminotransferase (ALT/SGPT) < 6L, Alkaline Phosphatase 77, Total Creatine Kinase 16L, Pro-B-Type Natriuretic Peptide 1915H, Total Protein 6.6, Albumin 1.2L, Globulin 5.4, Albumin/Globulin Ratio 0.2L, Triglycerides Level 87, Cholesterol Level 75, LDL Cholesterol 44, HDL Cholesterol 16L, Cholesterol/HDL Ratio 4.7H, Vitamin B12 Level 1740H, Folate 6.5L, Thyroid Stimulating Hormone ( TSH) < 0.007L Height (Feet): 5 Height (Inches): 4.00 Weight (Pounds): 232 General Appearance: no apparent distress, alert Neurologic: alert, oriented x 3, responsive, depressed affect Remington Kimbrough M.D. Apr 24, 2017 22:40
[2017-04-25] VITALS: BP 130/71
[2017-04-25 04:00] VITALS: BP 128/70
[2017-04-25] MEDS: NovoLOG Insulin Flexpen SUBQ SCH ×7 (06:15→20:26)
[2017-04-25] MEDS: metroNIDAZOLE 500mg tab ORAL SCH ×3 (06:17→21:56)
--- NOTE | 2017-04-25 06:55 | General Progress Note ---
Assessment/Plan Problem List: (1) Cellulitis, leg ICD Codes: L03.119 - Cellulitis of unspecified part of limb SNOMED: 073150617 (2) Diabetes mellitus ICD Codes: E11.9 - Type 2 diabetes mellitus without complications SNOMED: 26216798 (3) CKD (chronic kidney disease) ICD Codes: N18.9 - Chronic kidney disease, unspecified SNOMED: 596258730 (4) Diabetic nephropathy ICD Codes: E11.21 - Type 2 diabetes mellitus with diabetic nephropathy SNOMED: 28066990, 114719041 (5) Anemia in chronic kidney disease ICD Codes: N18.9 - Chronic kidney disease, unspecified; D63.1 - Anemia in chronic kidney disease SNOMED: 448272633, [id number] Assessment/Plan continue Levemir 24 units bid continue Novolog 12 units ac tid + NISS Subjective Allergies: Coded Allergies: PENICILLINS (Verified Allergy, Severe, SWOLLEN BODY, 04/23/17) Per Daughter, patient has tolerated Amoxicillin Tolerated Ceftriaxone 04/22/17 All Systems: reviewed and negative except above Subjective presented with L foot pain and swelling hx of R foot amputation diabetes is out of control Objective Last 24 Hour Vital Signs Date Time Temp Pulse Resp B/P (MAP) Pulse Ox O2 Delivery O2 Flow Rate FiO2 04/25/17 04:00 Room Air 04/25/17 04:00 100.2 90 21 128/70 96 100.2 04/25/17 00:12 96 20 98 Room Air 21 04/25/17 00:11 90 16 95 Room Air 21 04/25/17 00:00 Room Air 04/25/17 00:00 102.5 98 18 130/71 97 102.5 04/24/17 20:00 100.0 94 20 136/69 96 100.0 04/24/17 20:00 Room Air 04/24/17 19:30 92 16 Room Air 21 04/24/17 17:46 100.0 04/24/17 16:47 100.1 04/24/17 16:00 100.1 95 18 134/80 99 Room Air 100.1 04/24/17 12:00 98.2 91 19 144/76 98 Room Air 98.2 04/24/17 08:00 98.9 92 18 147/77 98 Room Air 98.9 Intake and Output 04/24/17 04/25/17 19:00 07:00 Intake Total 55 ml Output Total 400 ml Balance -400 ml 55 ml IV Total 55 ml Output Urine Total 400 ml Height (Feet): 5 Height (Inches): 4.00 Weight (Pounds): 232 General Appearance: no apparent distress Neck: normal alignment Cardiovascular: regular rhythm Respiratory/Chest: normal breath sounds Abdomen: normal bowel sounds Extremities: other - L foot edema and erythema - R foot amputation ANSELMO TOMLIN Apr 25, 2017 06:54
[2017-04-25 07:49] LABS: BASOPHILS % (AUTO) 0.5 % (0.0-2.0); EOSINOPHILS % (AUTO) 0.1 % (0.0-3.0); HEMATOCRIT 25.4 % (37.0-47.0); HEMOGLOBIN 8.3 G/DL (12.0-16.0); LYMPHOCYTES % (AUTO) 10.4 % (20.0-45.0); MEAN CORPUSCULAR VOLUME 83 FL (80-99); MONOCYTES % (AUTO) 10.8 % (1.0-10.0); NEUTROPHILS % (AUTO) 78.3 % (45.0-75.0); PLATELET COUNT 183 K/UL (150-450); RED BLOOD COUNT 3.04 M/UL (4.20-5.40); RED CELL DISTRIBUTION WIDTH 12.9 % (11.6-14.8); WHITE BLOOD COUNT 16.1 K/UL (4.8-10.8)
[2017-04-25 07:58] LABS: ALANINE AMINOTRANSFERASE < 6 U/L (12-78); ALBUMIN 1.2 G/DL (3.4-5.0); ALBUMIN/GLOBULIN RATIO 0.2 (1.0-2.7); ALKALINE PHOSPHATASE 67 U/L (46-116); ANION GAP 7 mmol/L (5-15); ASPARTATE AMINO TRANSFERASE 7 U/L (15-37); BILIRUBIN,TOTAL 0.3 MG/DL (0.2-1.0); BLOOD UREA NITROGEN 35 mg/dL (7-18); CALCIUM 8.6 MG/DL (8.5-10.1); CARBON DIOXIDE 25 MMOL/L (21-32); CHLORIDE 99 MMOL/L (98-107); CREATININE 2.3 MG/DL (0.55-1.30); PHOSPHORUS 2.6 MG/DL (2.5-4.9); POTASSIUM 3.1 MMOL/L (3.5-5.1); SODIUM 131 MMOL/L (136-145)
[2017-04-25] MEDS ORDERED: Heparin 2000 units/Ns 1000ml INJ PRN (09:00)
[2017-04-25] MEDS: Heparin 5000 units/ml inj SUBQ SCH ×2 (10:11→20:25)
[2017-04-25] MEDS: Levemir Flexpen SUBQ SCH ×2 (10:12→20:27)
--- NOTE | 2017-04-25 10:19 | Diagnostic Imaging Report ---
Indications: Needs long-term IV access Technique: Ultrasound confirms patent compressible left basilic vein. Total sterile technique, including sterile probe cover and sterile gel, hat, mask,, sterile gown, large sterile drape, and preparation with 2% chlorhexidine utilized. Local anesthesia with 1% lidocaine. Under real-time ultrasound guidance, puncture basilic vein using 21-gauge needle, documented and archived, passage 0.018 guidewire under direct fluoroscopy. Wire would not pass centrally, also needed to be directed centrally with a Kumpe catheter after 5 Uzbek peel-away sheath was inserted. Wire was used to determine appropriate catheter length. 5 U[place]bek Bard dual-lumen power PICC cut to 42 cm. It was inserted through the peel-away sheath. Peel-away sheath and guidewire removed. Catheter fixed to the skin. Both catheter ports aspirated and flushed. Patient tolerated procedure well, without immediate complication. Digital radiograph documents satisfactory catheter tip position, at the cavoatrial junction. Total fluoroscopy time 0.9 minutes. Total dose area product 25 dGycm2 Impression: Successful placement of left arm PICC under sonographic and fluoroscopic guidance, as described above.
[2017-04-25 12:00] VITALS: BP 149/89
--- NOTE | 2017-04-25 12:58 | Nephrology Progress Note ---
Assessment/Plan Problem List: (1) CKD (chronic kidney disease) (2) Diabetic nephropathy (3) Anemia in chronic kidney disease Assessment Renal Assessment: Renal failure- ? Diabetic nephropathy , CKD Anemia HypoAlbuminemia r/o Nephrotic State Other: Sepsis due to L Leg cellulitis/abscess c/w bacteremia- r/o Strep necrotizing infection Fever/leukocytosis Dm2 HTN hx of R transmetatarsal amputation reported PNC allergy- Plan Plan: UA 24 H urine protein over 3 grams K supplement Anemia li avoid nephrotoxics per orders Subjective ROS Limited/Unobtainable: No Constitutional: Reports: malaise Objective Objective Last 24 Hour Vital Signs Date Time Temp Pulse Resp B/P (MAP) Pulse Ox O2 Delivery O2 Flow Rate FiO2 04/25/17 09:48 89 16 Room Air 21 04/25/17 04:00 Room Air 04/25/17 04:00 100.2 90 21 128/70 96 100.2 04/25/17 00:12 96 20 98 Room Air 21 04/25/17 00:11 90 16 95 Room Air 21 04/25/17 00:00 Room Air 04/25/17 00:00 102.5 98 18 130/71 97 102.5 04/24/17 20:00 100.0 94 20 136/69 96 100.0 04/24/17 20:00 Room Air 04/24/17 19:30 92 16 Room Air 21 04/24/17 17:46 100.0 04/24/17 16:47 100.1 04/24/17 16:00 100.1 95 18 134/80 99 Room Air 100.1 Intake and Output 04/24/17 04/25/17 19:00 07:00 Intake Total 55 ml Output Total 400 ml 800 ml Balance -400 ml -745 ml IV Total 55 ml Output Urine Total 400 ml 800 ml Laboratory Tests 04/25/17 06:30: White Blood Count 16.1H, Red Blood Count 3.04L, Hemoglobin 8.3L, Hematocrit 25.4L, Mean Corpuscular Volume 83, Mean Corpuscular Hemoglobin 27.4, Mean Corpuscular Hemoglobin Concent 32.8, Red Cell Distribution Width 12.9, Platelet Count 183, Mean Platelet Volume 9.7, Neutrophils (%) (Auto) 78.3H, Lymphocytes ( %) (Auto) 10.4L, Monocytes (%) (Auto) 10.8H, Eosinophils (%) (Auto) 0.1, Basophils (%) (Auto) 0.5, Sodium Level 131L, Potassium Level 3.1L, Chloride Level 99, Carbon Dioxide Level 25, Anion Gap 7, Blood Urea Nitrogen 35H, Creatinine 2.3H, Estimat Glomerular Filtration Rate 26.9, Glucose Level 164#H, Calcium Level 8.6, Phosphorus Level 2.6, Magnesium Level 1.6L, Total Bilirubin 0.3, Aspartate Amino Transf (AST/SGOT) 7L, Alanine Aminotransferase (ALT/SGPT) < 6L, Alkaline Phosphatase 67, Total Protein 6.5, Albumin 1.2L, Globulin 5.3, Albumin/Globulin Ratio 0.2L Height (Feet): 5 Height (Inches): 4.00 Weight (Pounds): 232 Cardiovascular: tachycardia Respiratory/Chest: decreased breath sounds Abdomen: distended IBETH ROSAS Apr 25, 2017 12:58
--- NOTE | 2017-04-25 13:26 | General Surgery Progress Note ---
General Surgery-Progress Note Subjective Symptoms: improved Additional Comments doing well. no complaints. had PICC line placed today. MRI reviewed. Objective Last 24 Hour Vital Signs Date Time Temp Pulse Resp B/P (MAP) Pulse Ox O2 Delivery O2 Flow Rate FiO2 04/25/17 09:48 89 16 Room Air 21 04/25/17 04:00 Room Air 04/25/17 04:00 100.2 90 21 128/70 96 100.2 04/25/17 00:12 96 20 98 Room Air 21 04/25/17 00:11 90 16 95 Room Air 21 04/25/17 00:00 Room Air 04/25/17 00:00 102.5 98 18 130/71 97 102.5 04/24/17 20:00 100.0 94 20 136/69 96 100.0 04/24/17 20:00 Room Air 04/24/17 19:30 92 16 Room Air 21 04/24/17 17:46 100.0 04/24/17 16:47 100.1 04/24/17 16:00 100.1 95 18 134/80 99 Room Air 100.1 I&O Intake and Output 04/24/17 04/25/17 19:00 07:00 Intake Total 55 ml Output Total 400 ml 800 ml Balance -400 ml -745 ml IV Total 55 ml Output Urine Total 400 ml 800 ml Dressing: saturated Wound: clean Drains: none Cardiovascular: RSR Respiratory: clear Abdomen: soft, flat, non-tender, present bowel sounds Extremities: no cyanosis, other Laboratory Tests Test 04/25/17 06:30 White Blood Count 16.1 K/UL (4.8-10.8) H Red Blood Count 3.04 M/UL (4.20-5.40) L Hemoglobin 8.3 G/DL (12.0-16.0) L Hematocrit 25.4 % (37.0-47.0) L Mean Corpuscular Volume 83 FL (80-99) Mean Corpuscular Hemoglobin 27.4 PG (27.0-31.0) Mean Corpuscular Hemoglobin Concent 32.8 G/DL (32.0-36.0) Red Cell Distribution Width 12.9 % (11.6-14.8) Platelet Count 183 K/UL (150-450) Mean Platelet Volume 9.7 FL (6.5-10.1) Neutrophils (%) (Auto) 78.3 % (45.0-75.0) H Lymphocytes (%) (Auto) 10.4 % (20.0-45.0) L Monocytes (%) (Auto) 10.8 % (1.0-10.0) H Eosinophils (%) (Auto) 0.1 % (0.0-3.0) Basophils (%) (Auto) 0.5 % (0.0-2.0) Sodium Level 131 MMOL/L (136-145) L Potassium Level 3.1 MMOL/L (3.5-5.1) L Chloride Level 99 MMOL/L (98-107) Carbon Dioxide Level 25 MMOL/L (21-32) Anion Gap 7 mmol/L (5-15) Blood Urea Nitrogen 35 mg/dL (7-18) H Creatinine 2.3 MG/DL (0.55-1.30) H Estimat Glomerular Filtration Rate 26.9 mL/min (>60) Glucose Level 164 MG/DL (74-106) #H Calcium Level 8.6 MG/DL (8.5-10.1) Phosphorus Level 2.6 MG/DL (2.5-4.9) Magnesium Level 1.6 MG/DL (1.8-2.4) L Total Bilirubin 0.3 MG/DL (0.2-1.0) Aspartate Amino Transf (AST/SGOT) 7 U/L (15-37) L Alanine Aminotransferase (ALT/SGPT) < 6 U/L (12-78) L Alkaline Phosphatase 67 U/L (46-116) Total Protein 6.5 G/DL (6.4-8.2) Albumin 1.2 G/DL (3.4-5.0) L Globulin 5.3 g/dL Albumin/Globulin Ratio 0.2 (1.0-2.7) L Plan Problems: (1) Abscess of left leg Assessment & Plan: large abscess in left distal lateral leg down to muscle and tendon. large area of fluctuance. with patients consent incision and drainage was performed at bedside on 04/23/2017. 50-75cc of pus evacuated and sent for micro. wound cleaned and dressings applied. afebrile, HD stable, leukocytosis improving wound improving. edema improving. some benign superficial blisters noted around areas of foot that had tape prior. MRI Impression: Positive for osteomyelitis of the distal fibula, with evidence of bony destruction More subtle marrow changes as described in the talus and calcaneus, also suspicious for osteomyelitis Evidence of soft tissue cellulitis both laterally and medially. No drainable abscess Abnormal peroneus longus tendon, may indicate inflammation or infection. Possible damage to the distal peroneus brevis tendon -cont Abx. will discuss with ID about duration given osteo. -dressings and packing TID -will likely need wound care for some time. thank you for this consult. Sandro Ramirez Apr 25, 2017 13:26
--- NOTE | 2017-04-25 15:16 | Pulmonology Progress Note ---
Assessment/Plan Problems: (1) Cellulitis, leg (2) Diabetes mellitus (3) Abscess of left leg (4) Bacteremia Assessment/Plan iv abx sliding sclae wound care s/p drainage of the abscess + osteomyelitis needs a few weeks of IV abx PICC line in placed dc to retirement with iv abx Subjective ROS Limited/Unobtainable: No Allergies: Coded Allergies: PENICILLINS (Verified Allergy, Severe, SWOLLEN BODY, 04/23/17) Per Daughter, patient has tolerated Amoxicillin Tolerated Ceftriaxone 04/22/17 Objective Last 24 Hour Vital Signs Date Time Temp Pulse Resp B/P (MAP) Pulse Ox O2 Delivery O2 Flow Rate FiO2 04/25/17 09:48 89 16 Room Air 21 04/25/17 04:00 Room Air 04/25/17 04:00 100.2 90 21 128/70 96 100.2 04/25/17 00:12 96 20 98 Room Air 21 04/25/17 00:11 90 16 95 Room Air 21 04/25/17 00:00 Room Air 04/25/17 00:00 102.5 98 18 130/71 97 102.5 04/24/17 20:00 100.0 94 20 136/69 96 100.0 04/24/17 20:00 Room Air 04/24/17 19:30 92 16 Room Air 21 04/24/17 17:46 100.0 04/24/17 16:47 100.1 04/24/17 16:00 100.1 95 18 134/80 99 Room Air 100.1 Intake and Output 04/24/17 04/25/17 19:00 07:00 Intake Total 55 ml Output Total 400 ml 800 ml Balance -400 ml -745 ml IV Total 55 ml Output Urine Total 400 ml 800 ml Objective General Appearance: cachectic HEENT: normocephalic, atraumatic, anicteric Respiratory/Chest: chest wall non-tender, Breasts: no masses Cardiovascular: normal peripheral pulses Abdomen: normal bowel sounds Genitourinary: normal external genitalia Microbiology Date/Time Source Procedure Growth Status 04/22/17 17:45 Blood Blood Culture - Preliminary NO GROWTH AFTER 48 HOURS Resulted 04/22/17 17:30 Blood Blood Culture - Preliminary NO GROWTH AFTER 48 HOURS Resulted 04/23/17 15:10 Urine,Clean Catch Urine Culture - Preliminary NO GROWTH AFTER 24 HOURS Resulted 04/23/17 15:10 Foot Left Gram Stain - Final Resulted 04/23/17 15:10 Wound Culture - Preliminary Gram Negative Bacillus 1 Strep Species, Gamma-Hemolytic Resulted 04/22/17 17:20 Foot Left Gram Stain - Final Resulted 04/22/17 17:20 Wound Culture - Preliminary Staphylococcus Aureus - Mrsa Enterococcus Faecalis Enterobacter Aerogenes Resulted Laboratory Tests 04/25/17 06:30: White Blood Count 16.1H, Red Blood Count 3.04L, Hemoglobin 8.3L, Hematocrit 25.4L, Mean Corpuscular Volume 83, Mean Corpuscular Hemoglobin 27.4, Mean Corpuscular Hemoglobin Concent 32.8, Red Cell Distribution Width 12.9, Platelet Count 183, Mean Platelet Volume 9.7, Neutrophils (%) (Auto) 78.3H, Lymphocytes ( %) (Auto) 10.4L, Monocytes (%) (Auto) 10.8H, Eosinophils (%) (Auto) 0.1, Basophils (%) (Auto) 0.5, Sodium Level 131L, Potassium Level 3.1L, Chloride Level 99, Carbon Dioxide Level 25, Anion Gap 7, Blood Urea Nitrogen 35H, Creatinine 2.3H, Estimat Glomerular Filtration Rate 26.9, Glucose Level 164#H, Calcium Level 8.6, Phosphorus Level 2.6, Magnesium Level 1.6L, Total Bilirubin 0.3, Aspartate Amino Transf (AST/SGOT) 7L, Alanine Aminotransferase (ALT/SGPT) < 6L, Alkaline Phosphatase 67, Total Protein 6.5, Albumin 1.2L, Globulin 5.3, Albumin/Globulin Ratio 0.2L Current Medications Medications (Trade) Dose Ordered Sig/Artemio Route PRN Reason Start Time Stop Time Status Last Admin Dose Admin Acetaminophen (Tylenol) 650 mg Q4H PRN ORAL fever (temp>100.5F) 04/21/17 18:15 05/21/17 18:14 04/24/17 16:47 Albuterol/ Ipratropium (Albuterol/ Ipratropium) 3 ml Q4H PRN HHN Shortness of Breath 04/21/17 18:15 04/26/17 18:14 04/25/17 00:10 Ceftriaxone Sodium 2 gm/ Sodium Chloride 55 ml @ 110 mls/hr Q24H IVPB 04/22/17 20:00 04/29/17 19:59 04/24/17 21:49 Chlorhexidine Gluconate (Nasreen-Hex 2%) 1 applic DAILY@2000 TOPIC 04/25/17 20:00 05/25/17 19:59 Dextrose (Dextrose 50%) STAT PRN IV Hypoglycemia 04/21/17 18:15 05/21/17 18:14 Heparin Sodium (Porcine) (Heparin 5000 units/ml) 5,000 units EVERY 12 HOURS SUBQ 04/21/17 21:00 05/21/17 20:59 04/25/17 10:11 Heparin Sodium/ Sodium Chloride (Heparin 2000 units/Ns 1000ml premix) 2,000 unit ONCE PRN INJ PICC PLACEMENT 04/25/17 09:00 04/25/17 23:59 Insulin Aspart (NovoLOG) BEFORE MEALS AND HS SUBQ 04/21/17 21:00 05/21/17 20:59 04/25/17 12:29 Insulin Aspart (NovoLOG) 12 units NOVOTIAC SUBQ 04/24/17 11:50 05/24/17 11:49 04/25/17 06:15 Insulin Detemir (Levemir) 24 units Q12HR SUBQ 04/24/17 09:00 05/24/17 08:59 04/25/17 10:12 Lansoprazole (Prevacid) 30 mg DAILY ORAL 04/23/17 13:00 05/23/17 12:59 04/25/17 10:04 Lidocaine HCl (Xylocaine 1% 30ml) 30 ml ONCE PRN INJ PICC PLACEMENT 04/24/17 16:30 04/25/17 23:59 Metronidazole (Flagyl) 500 mg Q8HR ORAL 04/23/17 14:00 04/30/17 13:59 04/25/17 13:43 Morphine Sulfate (Morphine Sulfate) 2 mg Q4H PRN IVP Moderate Pain (Pain Scale 4-6) 04/21/17 18:15 04/28/17 18:14 Nitroglycerin (Ntg) 0.4 mg Q5M PRN SL Prn Chest Pain 04/21/17 18:15 05/21/17 18:14 Ondansetron HCl (Zofran) 4 mg Q6H PRN IVP Nausea & Vomiting 04/21/17 18:15 05/21/17 18:14 Polyethylene Glycol (Miralax) 17 gm DAILYPRN PRN ORAL Constipation 04/21/17 18:15 05/21/17 18:14 Potassium Chloride (K-Dur) 40 meq DAILY ORAL 04/25/17 13:00 05/25/17 12:59 04/25/17 13:43 Temazepam (Restoril) 15 mg HSPRN PRN ORAL Insomnia 04/21/17 18:15 04/28/17 18:14 Vancomycin HCl (Vanco rx to dose) 1 ea DAILY PRN MISC Per rx protocol 04/24/17 16:00 05/24/17 15:59 Ruby Richmond MD Apr 25, 2017 15:16
--- NOTE | 2017-04-25 15:48 | Infectious Diseases Prog Note ---
Assessment/Plan Assessment/Plan Assessment: Sepsis 2ry to L Leg cellulitis., large abscess (polymicrobial), infected ankle wound and OM c/w polymicrobial bacteremia -MRI L leg: Positive for osteomyelitis of the distal fibula, with evidence of bony destruction. More subtle marrow changes as described in the talus and calcaneus, also suspicious for osteomyelitis. Evidence of soft tissue cellulitis both laterally and medially. No drainable abscess. Abnormal peroneus longus tendon, may indicate inflammation or infection. Possible damage to the distal peroneus brevis tendon - s/p bedside I+D 04/23: large abscess in left distal lateral leg down to muscle and tendon. large area of fluctuance. 50-75cc of pus evacuated; wound cx +1 GNR, +4 Strep -Xray R tibia/fibula/ankle: Evidence of multiple lateral soft tissue ulcers in the distal leg and ankle. Evidence of destructive change of the distal fibula. This is highly suspicious for acute osteomyelitis. No acute bony trauma -wound cx from purulent discharge 04/22 #1: +2 MRSA, <1+ E. aerogens (S Ceftriaxone), +4 GBS; #2 +2 MRSA (S tetracycline, bactrim, vanco), +4 E. aerogens (S Ceftriaxone), E fecalis (grissom S) -ESR 116, CRP 27.7 Polymicrobial Gram positive bacteremia- -Bcx 04/21 2/4 + GBS, 2/4 CoNS, 1/4 S. aureus (sensi pending; suspect MRSA as MRSA isolated from wound) Bcx 04/22 NTD -Echo: no vegetations, no significant valve abnormalities Fever/leukocytosis- persistent- r/o persistent bacteremia -u/a neg, ucx nTD Dm2 HTN hx of R transmetatarsal amputation reported PNC allergy- however tolerates Amoxicillin per daughter Plan: -Continue Ceftriaxone #5 and IV Vancomycin #4 for polymicrobial (GBS, MRSA) L leg abscess, OM, bacteremia; duration for total of 42 days -weekly CBC, CMP, vanco through -repeat 2 sets of Bcx -Continue Flagyl #04/16 for anaerobic coverage -Hold discharge today as still febrile- r/o persistent bacteremia -04/23 SP IV Vancomycin #2 and Clindamycin #2 -04/22 SP IV Aztreonam #2 -f/u cx -monitor CBC/BMP, temperatures -wound care Thank you for this consultation. Will continue to follow along with you. Discussed with RN, Dr Richmond and Dr Ramirez Subjective Allergies: Coded Allergies: PENICILLINS (Verified Allergy, Severe, SWOLLEN BODY, 04/23/17) Per Daughter, patient has tolerated Amoxicillin Tolerated Ceftriaxone 04/22/17 Subjective Tm 102.5 leukocytosis mildly improved repeat Bcx 04/22 NTD Objective Vital Signs Last 24 Hour Vital Signs Date Time Temp Pulse Resp B/P (MAP) Pulse Ox O2 Delivery O2 Flow Rate FiO2 04/25/17 09:48 89 16 Room Air 21 04/25/17 04:00 Room Air 04/25/17 04:00 100.2 90 21 128/70 96 100.2 04/25/17 00:12 96 20 98 Room Air 21 04/25/17 00:11 90 16 95 Room Air 21 04/25/17 00:00 Room Air 04/25/17 00:00 102.5 98 18 130/71 97 102.5 04/24/17 20:00 100.0 94 20 136/69 96 100.0 04/24/17 20:00 Room Air 04/24/17 19:30 92 16 Room Air 21 04/24/17 17:46 100.0 04/24/17 16:47 100.1 04/24/17 16:00 100.1 95 18 134/80 99 Room Air 100.1 Height (Feet): 5 Height (Inches): 4.00 Weight (Pounds): 232 Objective General Appearance: WD/WN Lines, tubes and drains: peripheral HEENT: normocephalic, atraumatic Neck: non-tender, normal alignment Respiratory/Chest: chest wall non-tender, lungs clear Cardiovascular/Chest: normal peripheral pulses, normal rate Abdomen: normal bowel sounds, non tender Ext: R foot s/p metatarsal amputation- stump with no signs of infection L foot: dressings in place Microbiology Date/Time Source Procedure Growth Status 04/22/17 17:45 Blood Blood Culture - Preliminary NO GROWTH AFTER 48 HOURS Resulted 04/22/17 17:30 Blood Blood Culture - Preliminary NO GROWTH AFTER 48 HOURS Resulted 04/23/17 15:10 Urine,Clean Catch Urine Culture - Preliminary NO GROWTH AFTER 24 HOURS Resulted 04/23/17 15:10 Foot Left Gram Stain - Final Resulted 04/23/17 15:10 Wound Culture - Preliminary Gram Negative Bacillus 1 Strep Species, Gamma-Hemolytic Resulted 04/22/17 17:20 Foot Left Gram Stain - Final Resulted 04/22/17 17:20 Wound Culture - Preliminary Staphylococcus Aureus - Mrsa Enterococcus Faecalis Enterobacter Aerogenes Resulted Laboratory Tests Test 04/25/17 06:30 White Blood Count 16.1 K/UL (4.8-10.8) H Red Blood Count 3.04 M/UL (4.20-5.40) L Hemoglobin 8.3 G/DL (12.0-16.0) L Hematocrit 25.4 % (37.0-47.0) L Mean Corpuscular Volume 83 FL (80-99) Mean Corpuscular Hemoglobin 27.4 PG (27.0-31.0) Mean Corpuscular Hemoglobin Concent 32.8 G/DL (32.0-36.0) Red Cell Distribution Width 12.9 % (11.6-14.8) Platelet Count 183 K/UL (150-450) Mean Platelet Volume 9.7 FL (6.5-10.1) Neutrophils (%) (Auto) 78.3 % (45.0-75.0) H Lymphocytes (%) (Auto) 10.4 % (20.0-45.0) L Monocytes (%) (Auto) 10.8 % (1.0-10.0) H Eosinophils (%) (Auto) 0.1 % (0.0-3.0) Basophils (%) (Auto) 0.5 % (0.0-2.0) Sodium Level 131 MMOL/L (136-145) L Potassium Level 3.1 MMOL/L (3.5-5.1) L Chloride Level 99 MMOL/L (98-107) Carbon Dioxide Level 25 MMOL/L (21-32) Anion Gap 7 mmol/L (5-15) Blood Urea Nitrogen 35 mg/dL (7-18) H Creatinine 2.3 MG/DL (0.55-1.30) H Estimat Glomerular Filtration Rate 26.9 mL/min (>60) Glucose Level 164 MG/DL (74-106) #H Calcium Level 8.6 MG/DL (8.5-10.1) Phosphorus Level 2.6 MG/DL (2.5-4.9) Magnesium Level 1.6 MG/DL (1.8-2.4) L Total Bilirubin 0.3 MG/DL (0.2-1.0) Aspartate Amino Transf (AST/SGOT) 7 U/L (15-37) L Alanine Aminotransferase (ALT/SGPT) < 6 U/L (12-78) L Alkaline Phosphatase 67 U/L (46-116) Total Protein 6.5 G/DL (6.4-8.2) Albumin 1.2 G/DL (3.4-5.0) L Globulin 5.3 g/dL Albumin/Globulin Ratio 0.2 (1.0-2.7) L Current Medications Medications (Trade) Dose Ordered Sig/Artemio Route PRN Reason Start Time Stop Time Status Last Admin Dose Admin Acetaminophen (Tylenol) 650 mg Q4H PRN ORAL fever (temp>100.5F) 04/21/17 18:15 05/21/17 18:14 04/24/17 16:47 Albuterol/ Ipratropium (Albuterol/ Ipratropium) 3 ml Q4H PRN HHN Shortness of Breath 04/21/17 18:15 04/26/17 18:14 04/25/17 00:10 Ceftriaxone Sodium 2 gm/ Sodium Chloride 55 ml @ 110 mls/hr Q24H IVPB 04/22/17 20:00 04/29/17 19:59 04/24/17 21:49 Chlorhexidine Gluconate (Nasreen-Hex 2%) 1 applic DAILY@2000 TOPIC 04/25/17 20:00 05/25/17 19:59 Dextrose (Dextrose 50%) STAT PRN IV Hypoglycemia 04/21/17 18:15 05/21/17 18:14 Heparin Sodium (Porcine) (Heparin 5000 units/ml) 5,000 units EVERY 12 HOURS SUBQ 04/21/17 21:00 05/21/17 20:59 04/25/17 10:11 Heparin Sodium/ Sodium Chloride (Heparin 2000 units/Ns 1000ml premix) 2,000 unit ONCE PRN INJ PICC PLACEMENT 04/25/17 09:00 04/25/17 23:59 Insulin Aspart (NovoLOG) BEFORE MEALS AND HS SUBQ 04/21/17 21:00 05/21/17 20:59 04/25/17 12:29 Insulin Aspart (NovoLOG) 12 units NOVOTIAC SUBQ 04/24/17 11:50 05/24/17 11:49 04/25/17 06:15 Insulin Detemir (Levemir) 24 units Q12HR SUBQ 04/24/17 09:00 05/24/17 08:59 04/25/17 10:12 Lansoprazole (Prevacid) 30 mg DAILY ORAL 04/23/17 13:00 05/23/17 12:59 04/25/17 10:04 Lidocaine HCl (Xylocaine 1% 30ml) 30 ml ONCE PRN INJ PICC PLACEMENT 04/24/17 16:30 04/25/17 23:59 Metronidazole (Flagyl) 500 mg Q8HR ORAL 04/23/17 14:00 04/30/17 13:59 04/25/17 13:43 Morphine Sulfate (Morphine Sulfate) 2 mg Q4H PRN IVP Moderate Pain (Pain Scale 4-6) 04/21/17 18:15 04/28/17 18:14 Nitroglycerin (Ntg) 0.4 mg Q5M PRN SL Prn Chest Pain 04/21/17 18:15 05/21/17 18:14 Ondansetron HCl (Zofran) 4 mg Q6H PRN IVP Nausea & Vomiting 04/21/17 18:15 05/21/17 18:14 Polyethylene Glycol (Miralax) 17 gm DAILYPRN PRN ORAL Constipation 04/21/17 18:15 05/21/17 18:14 Potassium Chloride (K-Dur) 40 meq DAILY ORAL 04/25/17 13:00 05/25/17 12:59 04/25/17 13:43 Temazepam (Restoril) 15 mg HSPRN PRN ORAL Insomnia 04/21/17 18:15 04/28/17 18:14 Vancomycin HCl (Vanco rx to dose) 1 ea DAILY PRN MISC Per rx protocol 04/24/17 16:00 05/24/17 15:59 Faye Foy M.D. Apr 25, 2017 15:48
[2017-04-25 16:00] VITALS: BP 143/89
[2017-04-25 20:00] VITALS: BP 134/63
[2017-04-25] MEDS: cefTRIAXone 2 GM in NS 55 ML IVPB SCH (20:20)
[2017-04-25] MEDS: Dyna-Hex 2% Top Sol 2oz TOPIC SCH (20:21)
--- NOTE | 2017-04-25 20:51 | General Progress Note ---
Assessment/Plan Assessment/Plan adjustment d/o grief mdd -no meds at this time -provided st/ro Subjective Date patient seen: Apr 25, 2017 Neurologic/Psychiatric: Reports: anxiety, depressed, emotional problems Allergies: Coded Allergies: PENICILLINS (Verified Allergy, Severe, SWOLLEN BODY, 04/23/17) Per Daughter, patient has tolerated Amoxicillin Tolerated Ceftriaxone 04/22/17 Objective Last 24 Hour Vital Signs Date Time Temp Pulse Resp B/P (MAP) Pulse Ox O2 Delivery O2 Flow Rate FiO2 04/25/17 18:26 99.0 99.0 04/25/17 16:00 101.5 98 20 143/89 99 Room Air 101.5 04/25/17 12:00 99.7 92 23 149/89 98 Room Air 99.7 04/25/17 09:48 89 16 Room Air 21 04/25/17 04:00 Room Air 04/25/17 04:00 100.2 90 21 128/70 96 100.2 04/25/17 00:12 96 20 98 Room Air 21 04/25/17 00:11 90 16 95 Room Air 21 04/25/17 00:00 Room Air 04/25/17 00:00 102.5 98 18 130/71 97 102.5 Intake and Output 04/24/17 04/25/17 19:00 07:00 Intake Total 55 ml Output Total 400 ml 800 ml Balance -400 ml -745 ml IV Total 55 ml Output Urine Total 400 ml 800 ml Laboratory Tests 04/25/17 06:30: White Blood Count 16.1H, Red Blood Count 3.04L, Hemoglobin 8.3L, Hematocrit 25.4L, Mean Corpuscular Volume 83, Mean Corpuscular Hemoglobin 27.4, Mean Corpuscular Hemoglobin Concent 32.8, Red Cell Distribution Width 12.9, Platelet Count 183, Mean Platelet Volume 9.7, Neutrophils (%) (Auto) 78.3H, Lymphocytes ( %) (Auto) 10.4L, Monocytes (%) (Auto) 10.8H, Eosinophils (%) (Auto) 0.1, Basophils (%) (Auto) 0.5, Sodium Level 131L, Potassium Level 3.1L, Chloride Level 99, Carbon Dioxide Level 25, Anion Gap 7, Blood Urea Nitrogen 35H, Creatinine 2.3H, Estimat Glomerular Filtration Rate 26.9, Glucose Level 164#H, Calcium Level 8.6, Phosphorus Level 2.6, Magnesium Level 1.6L, Total Bilirubin 0.3, Aspartate Amino Transf (AST/SGOT) 7L, Alanine Aminotransferase (ALT/SGPT) < 6L, Alkaline Phosphatase 67, Total Protein 6.5, Albumin 1.2L, Globulin 5.3, Albumin/Globulin Ratio 0.2L 04/25/17 17:20: Random Vancomycin Level 20.1 Height (Feet): 5 Height (Inches): 4.00 Weight (Pounds): 232 General Appearance: no apparent distress, alert Neurologic: alert, oriented x 3, responsive, depressed affect Remington Kimbrough M.D. Apr 25, 2017 20:51
[2017-04-26] VITALS: BP 126/64
[2017-04-26 04:00] VITALS: BP 131/71
[2017-04-26] MEDS: Vancomycin 1gm in D5W 275ml IVPB SCH (06:16)
[2017-04-26] MEDS: metroNIDAZOLE 500mg tab ORAL SCH ×3 (06:16→21:45)
[2017-04-26] MEDS: NovoLOG Insulin Flexpen SUBQ SCH ×7 (06:19→20:25)
[2017-04-26 08:00] VITALS: BP 126/58
[2017-04-26] MEDS: Heparin 5000 units/ml inj SUBQ SCH ×2 (08:42→20:20)
[2017-04-26] MEDS: Levemir Flexpen SUBQ SCH ×2 (09:00→20:21)
[2017-04-26] MEDS ORDERED: NS 275ml ONE (11:15)
--- NOTE | 2017-04-26 11:50 | General Surgery Progress Note ---
General Surgery-Progress Note Subjective Symptoms: improved Additional Comments doing well. comfortable. no complaints Objective Last 24 Hour Vital Signs Date Time Temp Pulse Resp B/P (MAP) Pulse Ox O2 Delivery O2 Flow Rate FiO2 04/26/17 09:10 93 16 Room Air 21 04/26/17 08:00 99.7 93 19 126/58 99 Room Air 99.7 04/26/17 04:00 98.2 93 19 131/71 99 Room Air 98.2 04/26/17 04:00 Room Air 04/26/17 00:00 101.8 99 19 126/64 98 Room Air 101.8 04/26/17 00:00 Room Air 04/25/17 20:00 100.0 95 19 134/63 97 Room Air 100.0 04/25/17 20:00 Room Air 04/25/17 18:26 99.0 99.0 04/25/17 16:00 101.5 98 20 143/89 99 Room Air 101.5 04/25/17 12:00 99.7 92 23 149/89 98 Room Air 99.7 I&O Intake and Output 04/25/17 04/26/17 19:00 07:00 Intake Total 540 ml 655 ml Output Total 1550 ml Balance 540 ml -895 ml Intake Oral 540 ml 600 ml IV Total 55 ml Output Urine Total 1550 ml Dressing: saturated Wound: clean Drains: none Cardiovascular: RSR Respiratory: clear Abdomen: soft, flat, non-tender, present bowel sounds Extremities: no tenderness, no cyanosis Laboratory Tests Test 04/25/17 17:20 Random Vancomycin Level 20.1 ug/mL Plan Problems: (1) Abscess of left leg Assessment & Plan: large abscess in left distal lateral leg down to muscle and tendon. large area of fluctuance. with patients consent incision and drainage was performed at bedside on 04/23/2017. 50-75cc of pus evacuated and sent for micro. wound cleaned and dressings applied. afebrile, HD stable, leukocytosis improving wound improving. edema improving. MRI Impression: Positive for osteomyelitis of the distal fibula, with evidence of bony destruction More subtle marrow changes as described in the talus and calcaneus, also suspicious for osteomyelitis Evidence of soft tissue cellulitis both laterally and medially. No drainable abscess Abnormal peroneus longus tendon, may indicate inflammation or infection. Possible damage to the distal peroneus brevis tendon wound cleaned this AM. residual slothing of edges cleaned. packing and dressings reapplied. -cont Abx. will discuss with ID about duration given osteo. -dressings and packing TID -will likely need wound care for some time. thank you for this consult. Sandro Ramirez Apr 26, 2017 11:49
[2017-04-26 12:00] VITALS: BP 137/79
--- NOTE | 2017-04-26 12:05 | Nephrology Progress Note ---
Assessment/Plan Problem List: (1) CKD (chronic kidney disease) (2) Diabetic nephropathy (3) Anemia in chronic kidney disease Assessment Renal Assessment: Renal failure- ? Diabetic nephropathy , CKD Anemia HypoAlbuminemia r/o Nephrotic State Other: Sepsis due to L Leg cellulitis/abscess c/w bacteremia- r/o Strep necrotizing infection Fever/leukocytosis Dm2 HTN hx of R transmetatarsal amputation reported PNC allergy- Plan Plan: no labs UA 24 H urine protein over 3 grams K supplement Anemia li avoid nephrotoxics per orders Subjective ROS Limited/Unobtainable: No Constitutional: Reports: malaise Objective Objective Last 24 Hour Vital Signs Date Time Temp Pulse Resp B/P (MAP) Pulse Ox O2 Delivery O2 Flow Rate FiO2 04/26/17 09:10 93 16 Room Air 21 04/26/17 08:00 99.7 93 19 126/58 99 Room Air 99.7 04/26/17 04:00 98.2 93 19 131/71 99 Room Air 98.2 04/26/17 04:00 Room Air 04/26/17 00:00 101.8 99 19 126/64 98 Room Air 101.8 04/26/17 00:00 Room Air 04/25/17 20:00 100.0 95 19 134/63 97 Room Air 100.0 04/25/17 20:00 Room Air 04/25/17 18:26 99.0 99.0 04/25/17 16:00 101.5 98 20 143/89 99 Room Air 101.5 Intake and Output 04/25/17 04/26/17 19:00 07:00 Intake Total 540 ml 655 ml Output Total 1550 ml Balance 540 ml -895 ml Intake Oral 540 ml 600 ml IV Total 55 ml Output Urine Total 1550 ml Laboratory Tests 04/25/17 17:20: Random Vancomycin Level 20.1 Height (Feet): 5 Height (Inches): 4.00 Weight (Pounds): 232 General Appearance: no apparent distress Cardiovascular: tachycardia Respiratory/Chest: decreased breath sounds Abdomen: distended IBETH ROSAS Apr 26, 2017 12:05
--- NOTE | 2017-04-26 14:25 | Pulmonology Progress Note ---
Assessment/Plan Problems: (1) Bacteremia (2) Cellulitis, leg (3) Fungemia (4) Abscess of left leg (5) Diabetes mellitus Assessment/Plan iv abx, ID will add antifungal sliding sclae wound care s/p drainage of the abscess + osteomyelitis needs a few weeks of IV abx PICC line in placed dc to custodial with iv abx when OK with ID Subjective ROS Limited/Unobtainable: No Constitutional: Reports: no symptoms Allergies: Coded Allergies: PENICILLINS (Verified Allergy, Severe, SWOLLEN BODY, 04/23/17) Per Daughter, patient has tolerated Amoxicillin Tolerated Ceftriaxone 04/22/17 Objective Last 24 Hour Vital Signs Date Time Temp Pulse Resp B/P (MAP) Pulse Ox O2 Delivery O2 Flow Rate FiO2 04/26/17 12:00 99.2 90 19 137/79 97 Room Air 99.2 04/26/17 09:10 93 16 Room Air 21 04/26/17 08:00 99.7 93 19 126/58 99 Room Air 99.7 04/26/17 04:00 98.2 93 19 131/71 99 Room Air 98.2 04/26/17 04:00 Room Air 04/26/17 00:00 101.8 99 19 126/64 98 Room Air 101.8 04/26/17 00:00 Room Air 04/25/17 20:00 100.0 95 19 134/63 97 Room Air 100.0 04/25/17 20:00 Room Air 04/25/17 18:26 99.0 99.0 04/25/17 16:00 101.5 98 20 143/89 99 Room Air 101.5 Intake and Output 04/25/17 04/26/17 19:00 07:00 Intake Total 540 ml 655 ml Output Total 1550 ml Balance 540 ml -895 ml Intake Oral 540 ml 600 ml IV Total 55 ml Output Urine Total 1550 ml Objective General Appearance: cachectic HEENT: normocephalic, atraumatic, anicteric Respiratory/Chest: chest wall non-tender, Breasts: no masses Cardiovascular: normal peripheral pulses Abdomen: normal bowel sounds Genitourinary: normal external genitalia Microbiology Date/Time Source Procedure Growth Status 04/23/17 15:10 Urine,Clean Catch Urine Culture - Final NO GROWTH AFTER 48 HOURS Complete 04/23/17 15:10 Foot Left Gram Stain - Final Complete 04/23/17 15:10 Wound Culture - Final Klebsiella Pneumoniae Enterococcus Faecalis Complete Laboratory Tests 04/25/17 17:20: Random Vancomycin Level 20.1 04/26/17 12:20: C-Reactive Protein, Quantitative > 70.0H Current Medications Medications (Trade) Dose Ordered Sig/Artemio Route PRN Reason Start Time Stop Time Status Last Admin Dose Admin Acetaminophen (Tylenol) 650 mg Q4H PRN ORAL fever (temp>100.5F) 04/21/17 18:15 05/21/17 18:14 04/24/17 16:47 Albuterol/ Ipratropium (Albuterol/ Ipratropium) 3 ml Q4H PRN HHN Shortness of Breath 04/21/17 18:15 04/26/17 18:14 04/25/17 00:10 Ceftriaxone Sodium 2 gm/ Sodium Chloride 55 ml @ 110 mls/hr Q24H IVPB 04/22/17 20:00 04/29/17 19:59 04/25/17 20:20 Chlorhexidine Gluconate (Nasreen-Hex 2%) 1 applic DAILY@2000 TOPIC 04/25/17 20:00 05/25/17 19:59 04/25/17 20:21 Dextrose (Dextrose 50%) STAT PRN IV Hypoglycemia 04/21/17 18:15 05/21/17 18:14 Heparin Sodium (Porcine) (Heparin 5000 units/ml) 5,000 units EVERY 12 HOURS SUBQ 04/21/17 21:00 05/21/17 20:59 04/26/17 08:42 Insulin Aspart (NovoLOG) BEFORE MEALS AND HS SUBQ 04/21/17 21:00 05/21/17 20:59 04/26/17 13:47 Insulin Aspart (NovoLOG) 12 units NOVOTIAC SUBQ 04/24/17 11:50 05/24/17 11:49 04/25/17 06:15 Insulin Detemir (Levemir) 24 units Q12HR SUBQ 04/24/17 09:00 05/24/17 08:59 04/25/17 20:27 Lansoprazole (Prevacid) 30 mg DAILY ORAL 04/23/17 13:00 05/23/17 12:59 04/26/17 08:40 Metronidazole (Flagyl) 500 mg Q8HR ORAL 04/23/17 14:00 04/30/17 13:59 04/26/17 14:05 Morphine Sulfate (Morphine Sulfate) 2 mg Q4H PRN IVP Moderate Pain (Pain Scale 4-6) 04/21/17 18:15 04/28/17 18:14 Nitroglycerin (Ntg) 0.4 mg Q5M PRN SL Prn Chest Pain 04/21/17 18:15 05/21/17 18:14 Ondansetron HCl (Zofran) 4 mg Q6H PRN IVP Nausea & Vomiting 04/21/17 18:15 05/21/17 18:14 Polyethylene Glycol (Miralax) 17 gm DAILYPRN PRN ORAL Constipation 04/21/17 18:15 05/21/17 18:14 Potassium Chloride (K-Dur) 40 meq DAILY ORAL 04/25/17 13:00 05/25/17 12:59 04/26/17 08:40 Temazepam (Restoril) 15 mg HSPRN PRN ORAL Insomnia 04/21/17 18:15 04/28/17 18:14 Vancomycin HCl (Vanco rx to dose) 1 ea DAILY PRN MISC Per rx protocol 04/24/17 16:00 05/24/17 15:59 Vancomycin HCl 1 gm/Dextrose 275 ml @ 183.708 mls/hr Q24H IVPB 04/26/17 06:00 05/01/17 05:59 04/26/17 06:16 Ruby Richmond MD Apr 26, 2017 14:25
[2017-04-26 16:00] VITALS: BP 118/77
--- NOTE | 2017-04-26 16:09 | Infectious Diseases Prog Note ---
Assessment/Plan Assessment/Plan Assessment: Sepsis L Leg cellulitis., large abscess (polymicrobial), infected ankle wound and OM c/ w polymicrobial bacteremia -MRI L leg: Positive for osteomyelitis of the distal fibula, with evidence of bony destruction. More subtle marrow changes as described in the talus and calcaneus, also suspicious for osteomyelitis. Evidence of soft tissue cellulitis both laterally and medially. No drainable abscess. Abnormal peroneus longus tendon, may indicate inflammation or infection. Possible damage to the distal peroneus brevis tendon - s/p bedside I+D 04/23: large abscess in left distal lateral leg down to muscle and tendon. large area of fluctuance. 50-75cc of pus evacuated; wound cx +1 GNR, +4 Strep -Xray R tibia/fibula/ankle: Evidence of multiple lateral soft tissue ulcers in the distal leg and ankle. Evidence of destructive change of the distal fibula. This is highly suspicious for acute osteomyelitis. No acute bony trauma -wound cx from purulent discharge 04/22 #1: +2 MRSA, <1+ E. aerogens (S Ceftriaxone), +4 GBS; #2 +2 MRSA (S tetracycline, bactrim, vanco), +4 E. aerogens (S Ceftriaxone), E fecalis (grissom S) -ESR 116, CRP 27.7 Polymicrobial Gram positive bacteremia- -Bcx 04/21 2/4 + GBS, 2/4 CoNS, 1/4 S. aureus (sensi pending; suspect MRSA as MRSA isolated from wound) Bcx 04/22 NTD -Echo: no vegetations, no significant valve abnormalities Fungemia Fever, SP leukocytosis- persistent- r/o persistent bacteremia -u/a neg, ucx nTD 04/25 SP PICC Dm2 HTN hx of R transmetatarsal amputation reported PNC allergy- however tolerates Amoxicillin per daughter Plan: -Continue Ceftriaxone # 6 and IV Vancomycin #5, , Flagyl d# 4 for polymicrobial (GBS, MRSA) L leg abscess, OM, bacteremia; duration for total of 42 days add Mycamine d# - 21 -04/23 SP IV Vancomycin #2 and Clindamycin #2 -04/22 SP IV Aztreonam #2 -f/u cx Repeat blood cx -monitor CBC/BMP, temperatures -wound care -weekly CBC, CMP, vanco through -repeat 2 sets of Bcx - Rec JOHN if repeat blood cx +ve Subjective Allergies: Coded Allergies: PENICILLINS (Verified Allergy, Severe, SWOLLEN BODY, 04/23/17) Per Daughter, patient has tolerated Amoxicillin Tolerated Ceftriaxone 04/22/17 Subjective Afebrile Objective Vital Signs Last 24 Hour Vital Signs Date Time Temp Pulse Resp B/P (MAP) Pulse Ox O2 Delivery O2 Flow Rate FiO2 04/26/17 12:00 99.2 90 19 137/79 97 Room Air 99.2 04/26/17 09:10 93 16 Room Air 21 04/26/17 08:00 99.7 93 19 126/58 99 Room Air 99.7 04/26/17 04:00 98.2 93 19 131/71 99 Room Air 98.2 04/26/17 04:00 Room Air 04/26/17 00:00 101.8 99 19 126/64 98 Room Air 101.8 04/26/17 00:00 Room Air 04/25/17 20:00 100.0 95 19 134/63 97 Room Air 100.0 04/25/17 20:00 Room Air 04/25/17 18:26 99.0 99.0 Height (Feet): 5 Height (Inches): 4.00 Weight (Pounds): 232 Respiratory/Chest: no respiratory distress Cardiovascular: regular rhythm Abdomen: no organomegaly Laboratory Tests Test 04/25/17 17:20 04/26/17 12:20 Random Vancomycin Level 20.1 ug/mL C-Reactive Protein, Quantitative > 70.0 mg/dL (0.00-0.90) H Current Medications Medications (Trade) Dose Ordered Sig/Artemio Route PRN Reason Start Time Stop Time Status Last Admin Dose Admin Acetaminophen (Tylenol) 650 mg Q4H PRN ORAL fever (temp>100.5F) 04/21/17 18:15 05/21/17 18:14 04/24/17 16:47 Albuterol/ Ipratropium (Albuterol/ Ipratropium) 3 ml Q4H PRN HHN Shortness of Breath 04/21/17 18:15 04/26/17 18:14 04/25/17 00:10 Ceftriaxone Sodium 2 gm/ Sodium Chloride 55 ml @ 110 mls/hr Q24H IVPB 04/22/17 20:00 04/29/17 19:59 04/25/17 20:20 Chlorhexidine Gluconate (Nasreen-Hex 2%) 1 applic DAILY@2000 TOPIC 04/25/17 20:00 05/25/17 19:59 04/25/17 20:21 Dextrose (Dextrose 50%) STAT PRN IV Hypoglycemia 04/21/17 18:15 05/21/17 18:14 Heparin Sodium (Porcine) (Heparin 5000 units/ml) 5,000 units EVERY 12 HOURS SUBQ 04/21/17 21:00 05/21/17 20:59 04/26/17 08:42 Insulin Aspart (NovoLOG) BEFORE MEALS AND HS SUBQ 04/21/17 21:00 05/21/17 20:59 04/26/17 13:47 Insulin Aspart (NovoLOG) 12 units NOVOTIAC SUBQ 04/24/17 11:50 05/24/17 11:49 04/25/17 06:15 Insulin Detemir (Levemir) 24 units Q12HR SUBQ 04/24/17 09:00 05/24/17 08:59 04/25/17 20:27 Lansoprazole (Prevacid) 30 mg DAILY ORAL 04/23/17 13:00 05/23/17 12:59 04/26/17 08:40 Metronidazole (Flagyl) 500 mg Q8HR ORAL 04/23/17 14:00 04/30/17 13:59 04/26/17 14:05 Morphine Sulfate (Morphine Sulfate) 2 mg Q4H PRN IVP Moderate Pain (Pain Scale 4-6) 04/21/17 18:15 04/28/17 18:14 Nitroglycerin (Ntg) 0.4 mg Q5M PRN SL Prn Chest Pain 04/21/17 18:15 05/21/17 18:14 Ondansetron HCl (Zofran) 4 mg Q6H PRN IVP Nausea & Vomiting 04/21/17 18:15 05/21/17 18:14 Polyethylene Glycol (Miralax) 17 gm DAILYPRN PRN ORAL Constipation 04/21/17 18:15 05/21/17 18:14 Potassium Chloride (K-Dur) 40 meq DAILY ORAL 04/25/17 13:00 05/25/17 12:59 04/26/17 08:40 Temazepam (Restoril) 15 mg HSPRN PRN ORAL Insomnia 04/21/17 18:15 04/28/17 18:14 Vancomycin HCl (Vanco rx to dose) 1 ea DAILY PRN MISC Per rx protocol 04/24/17 16:00 05/24/17 15:59 Vancomycin HCl 1 gm/Dextrose 275 ml @ 183.708 mls/hr Q24H IVPB 04/26/17 06:00 05/01/17 05:59 04/26/17 06:16 PETER SAHU M.D. Apr 26, 2017 16:09
[2017-04-26] MEDS: Micafungin 100 MG in NS 110 ML IVPB SCH (17:34)
[2017-04-26 20:00] VITALS: BP 133/74
[2017-04-26] MEDS: cefTRIAXone 2 GM in NS 55 ML IVPB SCH (20:18)
[2017-04-26] MEDS: Dyna-Hex 2% Top Sol 2oz TOPIC SCH (20:18)
--- NOTE | 2017-04-26 22:40 | Diagnostic Imaging Report ---
APPROVED REPORT CPT Code: 29447 Present Symptoms Comments: Cellulitis R/O DVT BILATERAL: Imaging reveals a patent deep venous system bilaterally. There is no evidence of thrombus within the common femoral, proximal femoral, popliteal or tibial segments. The mid- distal thigh area not well visualized. The greater saphenous veins are also within normal limits. Doppler indicates normal spontaneous flow within these segments. Technically difficult study due to vessel depth (thigh area).
[2017-04-27] VITALS: BP 115/94
[2017-04-27 04:00] VITALS: BP 155/82
--- NOTE | 2017-04-27 05:15 | Geriatric Medicine Prog Note ---
DATE: 04/26/2017 LOCATION: The patient is in room 409, bed 2. SUBJECTIVE: The patient is more comfortable today. She has been . OBJECTIVE: VITAL SIGNS: Blood pressure 123/74, pulse 79, respiratory rate 18, and temperature 96 degrees. RESPIRATORY: Clear. CVS: Regular. LABORATORY DATA: Glucose 202. ASSESSMENT: Diabetes mellitus, under fair control. Continue Levemir insulin and NovoLog 12 units t.i.d. before meals. Balwinder Benitez M.D. DR: JOVANNA JOB#: [id number] CC:
[2017-04-27] MEDS: metroNIDAZOLE 500mg tab ORAL SCH ×3 (05:39→21:38)
[2017-04-27] MEDS: Vancomycin 1gm in D5W 275ml IVPB SCH (05:39)
[2017-04-27] MEDS: NovoLOG Insulin Flexpen SUBQ SCH ×7 (05:45→21:24)
[2017-04-27 05:56] LABS: HEMATOCRIT 26.8 % (37.0-47.0); HEMOGLOBIN 8.6 G/DL (12.0-16.0); MEAN CORPUSCULAR VOLUME 84 FL (80-99); PLATELET COUNT 166 K/UL (150-450); RED CELL DISTRIBUTION WIDTH 13.1 % (11.6-14.8); WHITE BLOOD COUNT 20.4 K/UL (4.8-10.8)
[2017-04-27 06:17] LABS: ALANINE AMINOTRANSFERASE < 6 U/L (12-78); ALBUMIN 1.2 G/DL (3.4-5.0); ALBUMIN/GLOBULIN RATIO 0.2 (1.0-2.7); ALKALINE PHOSPHATASE 66 U/L (46-116); ANION GAP 6 mmol/L (5-15); ASPARTATE AMINO TRANSFERASE 9 U/L (15-37); BILIRUBIN,TOTAL 0.3 MG/DL (0.2-1.0); BLOOD UREA NITROGEN 26 mg/dL (7-18); CALCIUM 8.4 MG/DL (8.5-10.1); CARBON DIOXIDE 26 MMOL/L (21-32); CHLORIDE 102 MMOL/L (98-107); GAMMA GLUTAMYL TRANSPEPTIDASE 24 U/L (5-85); PHOSPHORUS 3.1 MG/DL (2.5-4.9); SODIUM 134 MMOL/L (136-145)
[2017-04-27 08:00] VITALS: BP 125/82
[2017-04-27] MEDS: Heparin 5000 units/ml inj SUBQ SCH ×2 (08:31→21:25)
[2017-04-27] MEDS: Levemir Flexpen SUBQ SCH ×2 (08:32→21:23)
[2017-04-27 12:00] VITALS: BP 134/85
--- NOTE | 2017-04-27 13:12 | General Surgery Progress Note ---
General Surgery-Progress Note Subjective Additional Comments doing well. no acute events. states that she feels well. comfortable. no n/v /f/c. tolerating diet. Objective Last 24 Hour Vital Signs Date Time Temp Pulse Resp B/P (MAP) Pulse Ox O2 Delivery O2 Flow Rate FiO2 04/27/17 12:00 97.7 90 19 134/85 97 Room Air 97.7 04/27/17 08:00 98.2 86 19 125/82 98 Room Air 98.2 04/27/17 07:59 84 16 Room Air 21 04/27/17 04:00 99.8 92 20 155/82 98 99.8 04/27/17 00:00 99.8 89 20 115/94 98 99.8 04/26/17 20:00 99.6 89 20 133/74 98 99.6 04/26/17 19:28 86 16 Room Air 21 04/26/17 16:00 99.3 89 19 118/77 99 Room Air 99.3 I&O Intake and Output 04/26/17 04/27/17 19:00 07:00 Intake Total 1265 ml Output Total 625 ml Balance 640 ml Intake Oral 880 ml IV Total 385 ml Output Urine Total 625 ml # Voids 2 Dressing: saturated Wound: clean - improving , other Drains: none Cardiovascular: RSR Respiratory: clear Abdomen: soft, non-tender, present bowel sounds Extremities: edema, tenderness, no cyanosis, other - improving wounds. Laboratory Tests Test 04/27/17 04:00 White Blood Count 20.4 K/UL (4.8-10.8) H Red Blood Count 3.20 M/UL (4.20-5.40) L Hemoglobin 8.6 G/DL (12.0-16.0) L Hematocrit 26.8 % (37.0-47.0) L Mean Corpuscular Volume 84 FL (80-99) Mean Corpuscular Hemoglobin 27.0 PG (27.0-31.0) Mean Corpuscular Hemoglobin Concent 32.2 G/DL (32.0-36.0) Red Cell Distribution Width 13.1 % (11.6-14.8) Platelet Count 166 K/UL (150-450) Mean Platelet Volume 9.5 FL (6.5-10.1) Neutrophils (%) (Auto) % (45.0-75.0) Lymphocytes (%) (Auto) % (20.0-45.0) Monocytes (%) (Auto) % (1.0-10.0) Eosinophils (%) (Auto) % (0.0-3.0) Basophils (%) (Auto) % (0.0-2.0) Differential Total Cells Counted 100 Neutrophils % (Manual) 84 % (45-75) H Lymphocytes % (Manual) 5 % (20-45) L Monocytes % (Manual) 11 % (1-10) H Eosinophils % (Manual) 0 % (0-3) Basophils % (Manual) 0 % (0-2) Band Neutrophils 0 % (0-8) Platelet Estimate Adequate Platelet Morphology Normal Polychromasia 1+ Sodium Level 134 MMOL/L (136-145) L Potassium Level 4.0 MMOL/L (3.5-5.1) Chloride Level 102 MMOL/L (98-107) Carbon Dioxide Level 26 MMOL/L (21-32) Anion Gap 6 mmol/L (5-15) Blood Urea Nitrogen 26 mg/dL (7-18) H Creatinine 2.0 MG/DL (0.55-1.30) H Estimat Glomerular Filtration Rate 31.5 mL/min (>60) Glucose Level 181 MG/DL (74-106) H Uric Acid 6.2 MG/DL (2.6-7.2) Calcium Level 8.4 MG/DL (8.5-10.1) L Phosphorus Level 3.1 MG/DL (2.5-4.9) Magnesium Level 1.7 MG/DL (1.8-2.4) L Total Bilirubin 0.3 MG/DL (0.2-1.0) Gamma Glutamyl Transpeptidase 24 U/L (5-85) Aspartate Amino Transf (AST/SGOT) 9 U/L (15-37) L Alanine Aminotransferase (ALT/SGPT) < 6 U/L (12-78) L Alkaline Phosphatase 66 U/L (46-116) Pro-B-Type Natriuretic Peptide 1172 pg/mL (0-125) H Total Protein 6.4 G/DL (6.4-8.2) Albumin 1.2 G/DL (3.4-5.0) L Globulin 5.2 g/dL Albumin/Globulin Ratio 0.2 (1.0-2.7) L Plan Problems: (1) Abscess of left leg Assessment & Plan: large abscess in left distal lateral leg down to muscle and tendon. large area of fluctuance. with patients consent incision and drainage was performed at bedside on 04/23/2017. 50-75cc of pus evacuated and sent for micro. wound cleaned and dressings applied. afebrile, HD stable, leukocytosis wound improving. edema improving. MRI Impression: Positive for osteomyelitis of the distal fibula, with evidence of bony destruction More subtle marrow changes as described in the talus and calcaneus, also suspicious for osteomyelitis Evidence of soft tissue cellulitis both laterally and medially. No drainable abscess Abnormal peroneus longus tendon, may indicate inflammation or infection. Possible damage to the distal peroneus brevis tendon wound cleaned. slowly improving. packing and dressings reapplied. Afebrile, leukocytosis 20k today, wound stable. Microbiology reviewed -cont Abx. as per ID -dressings and packing TID. please ensure to pack wound and not just cover wound with dressings -will likely need wound care for some time. May even progress to amputation which patient is aware of. thank you for this consult. will follow with recs. Sandro Ramirez Apr 27, 2017 13:11
[2017-04-27 16:00] VITALS: BP 131/66
--- NOTE | 2017-04-27 17:57 | Nephrology Progress Note ---
Assessment/Plan Problem List: (1) CKD (chronic kidney disease) (2) Diabetic nephropathy (3) Anemia in chronic kidney disease Assessment Renal Assessment: Renal failure- ? Diabetic nephropathy , CKD cr down to 2 Anemia HypoAlbuminemia r/o Nephrotic State Other: Sepsis due to L Leg cellulitis/abscess c/w bacteremia- r/o Strep necrotizing infection Fever/leukocytosis Dm2 HTN hx of R transmetatarsal amputation reported PNC allergy- Plan Plan: no labs UA 24 H urine protein over 3 grams K supplement Anemia li avoid nephrotoxics per orders Subjective ROS Limited/Unobtainable: No Constitutional: Reports: malaise Objective Objective Last 24 Hour Vital Signs Date Time Temp Pulse Resp B/P (MAP) Pulse Ox O2 Delivery O2 Flow Rate FiO2 04/27/17 12:00 97.7 90 19 134/85 97 Room Air 97.7 04/27/17 08:00 98.2 86 19 125/82 98 Room Air 98.2 04/27/17 07:59 84 16 Room Air 21 04/27/17 04:00 99.8 92 20 155/82 98 99.8 04/27/17 00:00 99.8 89 20 115/94 98 99.8 04/26/17 20:00 99.6 89 20 133/74 98 99.6 04/26/17 19:28 86 16 Room Air 21 Intake and Output 04/26/17 04/27/17 19:00 07:00 Intake Total 1265 ml Output Total 625 ml Balance 640 ml Intake Oral 880 ml IV Total 385 ml Output Urine Total 625 ml # Voids 2 Laboratory Tests 04/27/17 04:00: White Blood Count 20.4H, Red Blood Count 3.20L, Hemoglobin 8.6L, Hematocrit 26.8L, Mean Corpuscular Volume 84, Mean Corpuscular Hemoglobin 27.0, Mean Corpuscular Hemoglobin Concent 32.2, Red Cell Distribution Width 13.1, Platelet Count 166, Mean Platelet Volume 9.5, Neutrophils (%) (Auto) , Lymphocytes (%) ( Auto) , Monocytes (%) (Auto) , Eosinophils (%) (Auto) , Basophils (%) (Auto) , Differential Total Cells Counted 100, Neutrophils % (Manual) 84H, Lymphocytes % (Manual) 5L, Monocytes % (Manual) 11H, Eosinophils % (Manual) 0, Basophils % ( Manual) 0, Band Neutrophils 0, Platelet Estimate Adequate, Platelet Morphology Normal, Polychromasia 1+, Sodium Level 134L, Potassium Level 4.0, Chloride Level 102, Carbon Dioxide Level 26, Anion Gap 6, Blood Urea Nitrogen 26H, Creatinine 2.0H, Estimat Glomerular Filtration Rate 31.5, Glucose Level 181H, Uric Acid 6.2, Calcium Level 8.4L, Phosphorus Level 3.1, Magnesium Level 1.7L, Total Bilirubin 0.3, Gamma Glutamyl Transpeptidase 24, Aspartate Amino Transf ( AST/SGOT) 9L, Alanine Aminotransferase (ALT/SGPT) < 6L, Alkaline Phosphatase 66 , Pro-B-Type Natriuretic Peptide 1172H, Total Protein 6.4, Albumin 1.2L, Globulin 5.2, Albumin/Globulin Ratio 0.2L Height (Feet): 5 Height (Inches): 4.00 Weight (Pounds): 232 General Appearance: no apparent distress Objective no change IBETH ROSAS Apr 27, 2017 17:57
[2017-04-27] MEDS: Micafungin 100 MG in NS 110 ML IVPB SCH (18:07)
[2017-04-27 20:00] VITALS: BP 139/88
[2017-04-27] MEDS: Dyna-Hex 2% Top Sol 2oz TOPIC SCH (21:20)
[2017-04-27] MEDS: cefTRIAXone 2 GM in NS 55 ML IVPB SCH (21:20)
--- NOTE | 2017-04-27 21:40 | Pulmonology Progress Note ---
Assessment/Plan Problems: (1) Bacteremia (2) Fungemia (3) Cellulitis, leg (4) Abscess of left leg (5) Diabetes mellitus Assessment/Plan iv abx, On micafungin now sliding sclae wound care s/p drainage of the abscess + osteomyelitis needs a few weeks of IV abx PICC line in placed dc to half-way with iv abx when OK with ID Subjective ROS Limited/Unobtainable: No Allergies: Coded Allergies: PENICILLINS (Verified Allergy, Severe, SWOLLEN BODY, 04/23/17) Per Daughter, patient has tolerated Amoxicillin Tolerated Ceftriaxone 04/22/17 Objective Last 24 Hour Vital Signs Date Time Temp Pulse Resp B/P (MAP) Pulse Ox O2 Delivery O2 Flow Rate FiO2 04/27/17 20:00 99.3 88 20 139/88 97 99.3 04/27/17 16:00 98.1 76 18 131/66 99 Room Air 98.1 04/27/17 12:00 97.7 90 19 134/85 97 Room Air 97.7 04/27/17 08:00 98.2 86 19 125/82 98 Room Air 98.2 04/27/17 07:59 84 16 Room Air 21 04/27/17 04:00 99.8 92 20 155/82 98 99.8 04/27/17 00:00 99.8 89 20 115/94 98 99.8 Intake and Output 04/26/17 04/27/17 19:00 07:00 Intake Total 1265 ml Output Total 625 ml Balance 640 ml Intake Oral 880 ml IV Total 385 ml Output Urine Total 625 ml # Voids 2 Objective General Appearance: cachectic HEENT: normocephalic, atraumatic, anicteric Respiratory/Chest: chest wall non-tender, Breasts: no masses Cardiovascular: normal peripheral pulses Abdomen: normal bowel sounds Genitourinary: normal external genitalia Microbiology Date/Time Source Procedure Growth Status 04/25/17 16:22 Blood Blood Culture - Preliminary NO GROWTH AFTER 24 HOURS Resulted 04/25/17 16:22 Blood Blood Culture - Preliminary NO GROWTH AFTER 24 HOURS Resulted Laboratory Tests 04/27/17 04:00: White Blood Count 20.4H, Red Blood Count 3.20L, Hemoglobin 8.6L, Hematocrit 26.8L, Mean Corpuscular Volume 84, Mean Corpuscular Hemoglobin 27.0, Mean Corpuscular Hemoglobin Concent 32.2, Red Cell Distribution Width 13.1, Platelet Count 166, Mean Platelet Volume 9.5, Neutrophils (%) (Auto) , Lymphocytes (%) ( Auto) , Monocytes (%) (Auto) , Eosinophils (%) (Auto) , Basophils (%) (Auto) , Differential Total Cells Counted 100, Neutrophils % (Manual) 84H, Lymphocytes % (Manual) 5L, Monocytes % (Manual) 11H, Eosinophils % (Manual) 0, Basophils % ( Manual) 0, Band Neutrophils 0, Platelet Estimate Adequate, Platelet Morphology Normal, Polychromasia 1+, Sodium Level 134L, Potassium Level 4.0, Chloride Level 102, Carbon Dioxide Level 26, Anion Gap 6, Blood Urea Nitrogen 26H, Creatinine 2.0H, Estimat Glomerular Filtration Rate 31.5, Glucose Level 181H, Uric Acid 6.2, Calcium Level 8.4L, Phosphorus Level 3.1, Magnesium Level 1.7L, Total Bilirubin 0.3, Gamma Glutamyl Transpeptidase 24, Aspartate Amino Transf ( AST/SGOT) 9L, Alanine Aminotransferase (ALT/SGPT) < 6L, Alkaline Phosphatase 66 , Pro-B-Type Natriuretic Peptide 1172H, Total Protein 6.4, Albumin 1.2L, Globulin 5.2, Albumin/Globulin Ratio 0.2L Current Medications Medications (Trade) Dose Ordered Sig/Artemio Route PRN Reason Start Time Stop Time Status Last Admin Dose Admin Acetaminophen (Tylenol) 650 mg Q4H PRN ORAL fever (temp>100.5F) 04/21/17 18:15 05/21/17 18:14 04/24/17 16:47 Ceftriaxone Sodium 2 gm/ Sodium Chloride 55 ml @ 110 mls/hr Q24H IVPB 04/22/17 20:00 04/29/17 19:59 04/27/17 21:20 Chlorhexidine Gluconate (Nasreen-Hex 2%) 1 applic DAILY@2000 TOPIC 04/25/17 20:00 05/25/17 19:59 04/27/17 21:20 Dextrose (Dextrose 50%) STAT PRN IV Hypoglycemia 04/21/17 18:15 05/21/17 18:14 Heparin Sodium (Porcine) (Heparin 5000 units/ml) 5,000 units EVERY 12 HOURS SUBQ 04/21/17 21:00 05/21/17 20:59 04/27/17 21:25 Insulin Aspart (NovoLOG) BEFORE MEALS AND HS SUBQ 04/21/17 21:00 05/21/17 20:59 04/27/17 21:24 Insulin Aspart (NovoLOG) 12 units NOVOTIAC SUBQ 04/24/17 11:50 05/24/17 11:49 04/25/17 06:15 Insulin Detemir (Levemir) 24 units Q12HR SUBQ 04/24/17 09:00 05/24/17 08:59 04/27/17 21:23 Lansoprazole (Prevacid) 30 mg DAILY ORAL 04/23/17 13:00 05/23/17 12:59 04/27/17 08:29 Metronidazole (Flagyl) 500 mg Q8HR ORAL 04/23/17 14:00 04/30/17 13:59 04/27/17 14:35 Micafungin Sodium 100 mg/Sodium Chloride 110 ml @ 110 mls/hr Q24H IVPB 04/26/17 17:00 05/03/17 16:59 04/27/17 18:07 Morphine Sulfate (Morphine Sulfate) 2 mg Q4H PRN IVP Moderate Pain (Pain Scale 4-6) 04/21/17 18:15 04/28/17 18:14 Nitroglycerin (Ntg) 0.4 mg Q5M PRN SL Prn Chest Pain 04/21/17 18:15 05/21/17 18:14 Ondansetron HCl (Zofran) 4 mg Q6H PRN IVP Nausea & Vomiting 04/21/17 18:15 05/21/17 18:14 Polyethylene Glycol (Miralax) 17 gm DAILYPRN PRN ORAL Constipation 04/21/17 18:15 05/21/17 18:14 Potassium Chloride (K-Dur) 40 meq DAILY ORAL 04/25/17 13:00 05/25/17 12:59 04/27/17 08:29 Temazepam (Restoril) 15 mg HSPRN PRN ORAL Insomnia 04/21/17 18:15 04/28/17 18:14 Vancomycin HCl (Vanco rx to dose) 1 ea DAILY PRN MISC Per rx protocol 04/24/17 16:00 05/24/17 15:59 Vancomycin HCl 1 gm/Dextrose 275 ml @ 183.708 mls/hr Q24H IVPB 04/26/17 06:00 05/01/17 05:59 04/27/17 05:39 Ruby Richmond MD Apr 27, 2017 21:40
--- NOTE | 2017-04-27 22:13 | General Progress Note ---
Assessment/Plan Status: stable Assessment/Plan adjustment d/o grief mdd -no meds at this time -provided st/ro Subjective Date patient seen: Apr 27, 2017 Neurologic/Psychiatric: Reports: anxiety, depressed Allergies: Coded Allergies: PENICILLINS (Verified Allergy, Severe, SWOLLEN BODY, 04/23/17) Per Daughter, patient has tolerated Amoxicillin Tolerated Ceftriaxone 04/22/17 Objective Last 24 Hour Vital Signs Date Time Temp Pulse Resp B/P (MAP) Pulse Ox O2 Delivery O2 Flow Rate FiO2 04/27/17 20:00 99.3 88 20 139/88 97 99.3 04/27/17 16:00 98.1 76 18 131/66 99 Room Air 98.1 04/27/17 12:00 97.7 90 19 134/85 97 Room Air 97.7 04/27/17 08:00 98.2 86 19 125/82 98 Room Air 98.2 04/27/17 07:59 84 16 Room Air 21 04/27/17 04:00 99.8 92 20 155/82 98 99.8 04/27/17 00:00 99.8 89 20 115/94 98 99.8 Intake and Output 04/26/17 04/27/17 19:00 07:00 Intake Total 1265 ml Output Total 625 ml Balance 640 ml Intake Oral 880 ml IV Total 385 ml Output Urine Total 625 ml # Voids 2 Laboratory Tests 04/27/17 04:00: White Blood Count 20.4H, Red Blood Count 3.20L, Hemoglobin 8.6L, Hematocrit 26.8L, Mean Corpuscular Volume 84, Mean Corpuscular Hemoglobin 27.0, Mean Corpuscular Hemoglobin Concent 32.2, Red Cell Distribution Width 13.1, Platelet Count 166, Mean Platelet Volume 9.5, Neutrophils (%) (Auto) , Lymphocytes (%) ( Auto) , Monocytes (%) (Auto) , Eosinophils (%) (Auto) , Basophils (%) (Auto) , Differential Total Cells Counted 100, Neutrophils % (Manual) 84H, Lymphocytes % (Manual) 5L, Monocytes % (Manual) 11H, Eosinophils % (Manual) 0, Basophils % ( Manual) 0, Band Neutrophils 0, Platelet Estimate Adequate, Platelet Morphology Normal, Polychromasia 1+, Sodium Level 134L, Potassium Level 4.0, Chloride Level 102, Carbon Dioxide Level 26, Anion Gap 6, Blood Urea Nitrogen 26H, Creatinine 2.0H, Estimat Glomerular Filtration Rate 31.5, Glucose Level 181H, Uric Acid 6.2, Calcium Level 8.4L, Phosphorus Level 3.1, Magnesium Level 1.7L, Total Bilirubin 0.3, Gamma Glutamyl Transpeptidase 24, Aspartate Amino Transf ( AST/SGOT) 9L, Alanine Aminotransferase (ALT/SGPT) < 6L, Alkaline Phosphatase 66 , Pro-B-Type Natriuretic Peptide 1172H, Total Protein 6.4, Albumin 1.2L, Globulin 5.2, Albumin/Globulin Ratio 0.2L Height (Feet): 5 Height (Inches): 4.00 Weight (Pounds): 232 General Appearance: no apparent distress, alert Remington Kimbrough M.D. Apr 27, 2017 22:13
--- NOTE | 2017-04-27 22:13 | Psych Consult Progress Note ---
Psych Consult Progress Note Consult 04/26/17 adjustment d/o grief mdd -no meds at this time -provided st/ro Vital Signs Last 24 Hour Vital Signs Date Time Temp Pulse Resp B/P (MAP) Pulse Ox O2 Delivery O2 Flow Rate FiO2 04/27/17 20:00 99.3 88 20 139/88 97 99.3 04/27/17 16:00 98.1 76 18 131/66 99 Room Air 98.1 04/27/17 12:00 97.7 90 19 134/85 97 Room Air 97.7 04/27/17 08:00 98.2 86 19 125/82 98 Room Air 98.2 04/27/17 07:59 84 16 Room Air 21 04/27/17 04:00 99.8 92 20 155/82 98 99.8 04/27/17 00:00 99.8 89 20 115/94 98 99.8 Labs Laboratory Tests Test 04/27/17 04:00 White Blood Count 20.4 K/UL (4.8-10.8) H Red Blood Count 3.20 M/UL (4.20-5.40) L Hemoglobin 8.6 G/DL (12.0-16.0) L Hematocrit 26.8 % (37.0-47.0) L Mean Corpuscular Volume 84 FL (80-99) Mean Corpuscular Hemoglobin 27.0 PG (27.0-31.0) Mean Corpuscular Hemoglobin Concent 32.2 G/DL (32.0-36.0) Red Cell Distribution Width 13.1 % (11.6-14.8) Platelet Count 166 K/UL (150-450) Mean Platelet Volume 9.5 FL (6.5-10.1) Neutrophils (%) (Auto) % (45.0-75.0) Lymphocytes (%) (Auto) % (20.0-45.0) Monocytes (%) (Auto) % (1.0-10.0) Eosinophils (%) (Auto) % (0.0-3.0) Basophils (%) (Auto) % (0.0-2.0) Differential Total Cells Counted 100 Neutrophils % (Manual) 84 % (45-75) H Lymphocytes % (Manual) 5 % (20-45) L Monocytes % (Manual) 11 % (1-10) H Eosinophils % (Manual) 0 % (0-3) Basophils % (Manual) 0 % (0-2) Band Neutrophils 0 % (0-8) Platelet Estimate Adequate Platelet Morphology Normal Polychromasia 1+ Sodium Level 134 MMOL/L (136-145) L Potassium Level 4.0 MMOL/L (3.5-5.1) Chloride Level 102 MMOL/L (98-107) Carbon Dioxide Level 26 MMOL/L (21-32) Anion Gap 6 mmol/L (5-15) Blood Urea Nitrogen 26 mg/dL (7-18) H Creatinine 2.0 MG/DL (0.55-1.30) H Estimat Glomerular Filtration Rate 31.5 mL/min (>60) Glucose Level 181 MG/DL (74-106) H Uric Acid 6.2 MG/DL (2.6-7.2) Calcium Level 8.4 MG/DL (8.5-10.1) L Phosphorus Level 3.1 MG/DL (2.5-4.9) Magnesium Level 1.7 MG/DL (1.8-2.4) L Total Bilirubin 0.3 MG/DL (0.2-1.0) Gamma Glutamyl Transpeptidase 24 U/L (5-85) Aspartate Amino Transf (AST/SGOT) 9 U/L (15-37) L Alanine Aminotransferase (ALT/SGPT) < 6 U/L (12-78) L Alkaline Phosphatase 66 U/L (46-116) Pro-B-Type Natriuretic Peptide 1172 pg/mL (0-125) H Total Protein 6.4 G/DL (6.4-8.2) Albumin 1.2 G/DL (3.4-5.0) L Globulin 5.2 g/dL Albumin/Globulin Ratio 0.2 (1.0-2.7) L Medications Current Medications Medications (Trade) Dose Ordered Sig/Artemio Route PRN Reason Start Time Stop Time Status Last Admin Dose Admin Acetaminophen (Tylenol) 650 mg Q4H PRN ORAL fever (temp>100.5F) 04/21/17 18:15 05/21/17 18:14 04/24/17 16:47 Ceftriaxone Sodium 2 gm/ Sodium Chloride 55 ml @ 110 mls/hr Q24H IVPB 04/22/17 20:00 04/29/17 19:59 04/27/17 21:20 Chlorhexidine Gluconate (Nasreen-Hex 2%) 1 applic DAILY@2000 TOPIC 04/25/17 20:00 05/25/17 19:59 04/27/17 21:20 Dextrose (Dextrose 50%) STAT PRN IV Hypoglycemia 04/21/17 18:15 05/21/17 18:14 Heparin Sodium (Porcine) (Heparin 5000 units/ml) 5,000 units EVERY 12 HOURS SUBQ 04/21/17 21:00 05/21/17 20:59 04/27/17 21:25 Insulin Aspart (NovoLOG) BEFORE MEALS AND HS SUBQ 04/21/17 21:00 05/21/17 20:59 04/27/17 21:24 Insulin Aspart (NovoLOG) 12 units NOVOTIAC SUBQ 04/24/17 11:50 05/24/17 11:49 04/25/17 06:15 Insulin Detemir (Levemir) 24 units Q12HR SUBQ 04/24/17 09:00 05/24/17 08:59 04/27/17 21:23 Lansoprazole (Prevacid) 30 mg DAILY ORAL 04/23/17 13:00 05/23/17 12:59 04/27/17 08:29 Metronidazole (Flagyl) 500 mg Q8HR ORAL 04/23/17 14:00 04/30/17 13:59 04/27/17 21:38 Micafungin Sodium 100 mg/Sodium Chloride 110 ml @ 110 mls/hr Q24H IVPB 04/26/17 17:00 05/03/17 16:59 04/27/17 18:07 Morphine Sulfate (Morphine Sulfate) 2 mg Q4H PRN IVP Moderate Pain (Pain Scale 4-6) 04/21/17 18:15 04/28/17 18:14 Nitroglycerin (Ntg) 0.4 mg Q5M PRN SL Prn Chest Pain 04/21/17 18:15 05/21/17 18:14 Ondansetron HCl (Zofran) 4 mg Q6H PRN IVP Nausea & Vomiting 04/21/17 18:15 05/21/17 18:14 Polyethylene Glycol (Miralax) 17 gm DAILYPRN PRN ORAL Constipation 04/21/17 18:15 05/21/17 18:14 Potassium Chloride (K-Dur) 40 meq DAILY ORAL 04/25/17 13:00 05/25/17 12:59 04/27/17 08:29 Temazepam (Restoril) 15 mg HSPRN PRN ORAL Insomnia 04/21/17 18:15 04/28/17 18:14 Vancomycin HCl (Vanco rx to dose) 1 ea DAILY PRN MISC Per rx protocol 04/24/17 16:00 05/24/17 15:59 Vancomycin HCl 1 gm/Dextrose 275 ml @ 183.708 mls/hr Q24H IVPB 04/26/17 06:00 05/01/17 05:59 04/27/17 05:39 Problems: Remington Kimbrough M.D. Apr 27, 2017 22:13
[2017-04-28] VITALS: BP 145/84
[2017-04-28 03:55] LABS: HEMATOCRIT 25.9 % (37.0-47.0); HEMOGLOBIN 8.5 G/DL (12.0-16.0); MEAN CORPUSCULAR VOLUME 84 FL (80-99); PLATELET COUNT 188 K/UL (150-450); RED BLOOD COUNT 3.09 M/UL (4.20-5.40); WHITE BLOOD COUNT 21.3 K/UL (4.8-10.8)
[2017-04-28 04:00] VITALS: BP 138/80
[2017-04-28 04:12] LABS: ALANINE AMINOTRANSFERASE < 6 U/L (12-78); ALBUMIN 1.2 G/DL (3.4-5.0); ALBUMIN/GLOBULIN RATIO 0.2 (1.0-2.7); ALKALINE PHOSPHATASE 73 U/L (46-116); ANION GAP 6 mmol/L (5-15); ASPARTATE AMINO TRANSFERASE 8 U/L (15-37); BILIRUBIN,TOTAL 0.3 MG/DL (0.2-1.0); BLOOD UREA NITROGEN 21 mg/dL (7-18); CALCIUM 8.3 MG/DL (8.5-10.1); CARBON DIOXIDE 26 MMOL/L (21-32); CHLORIDE 100 MMOL/L (98-107); CREATININE 1.9 MG/DL (0.55-1.30); PHOSPHORUS 2.9 MG/DL (2.5-4.9); POTASSIUM 4.3 MMOL/L (3.5-5.1); SODIUM 132 MMOL/L (136-145)
[2017-04-28] MEDS: Vancomycin 1gm in D5W 275ml IVPB SCH (05:29)
[2017-04-28] MEDS: metroNIDAZOLE 500mg tab ORAL SCH ×3 (05:37→21:04)
[2017-04-28] MEDS: NovoLOG Insulin Flexpen SUBQ SCH ×5 (06:30→21:02)
--- NOTE | 2017-04-28 07:16 | General Progress Note ---
Assessment/Plan Problem List: (1) Cellulitis, leg ICD Codes: L03.119 - Cellulitis of unspecified part of limb SNOMED: 633059712 (2) Diabetes mellitus ICD Codes: E11.9 - Type 2 diabetes mellitus without complications SNOMED: 40245666 (3) CKD (chronic kidney disease) ICD Codes: N18.9 - Chronic kidney disease, unspecified SNOMED: 902345277 (4) Diabetic nephropathy ICD Codes: E11.21 - Type 2 diabetes mellitus with diabetic nephropathy SNOMED: 10518987, 713491360 (5) Anemia in chronic kidney disease ICD Codes: N18.9 - Chronic kidney disease, unspecified; D63.1 - Anemia in chronic kidney disease SNOMED: 689486131, 237433711 Assessment/Plan continue Levemir 24 units bid DC Novolog 12 units ac tid add Starlix 60 mg ac tid continue NISS Subjective Allergies: Coded Allergies: PENICILLINS (Verified Allergy, Severe, SWOLLEN BODY, 04/23/17) Per Daughter, patient has tolerated Amoxicillin Tolerated Ceftriaxone 04/22/17 All Systems: reviewed and negative except above Subjective events noted interval notes reviewed she's been refusing mealtime Novolog Objective Last 24 Hour Vital Signs Date Time Temp Pulse Resp B/P (MAP) Pulse Ox O2 Delivery O2 Flow Rate FiO2 04/28/17 00:00 101.7 93 20 145/84 98 101.7 04/27/17 20:00 99.3 88 20 139/88 97 99.3 04/27/17 19:00 88 18 Room Air 21 04/27/17 16:00 98.1 76 18 131/66 99 Room Air 98.1 04/27/17 12:00 97.7 90 19 134/85 97 Room Air 97.7 04/27/17 08:00 98.2 86 19 125/82 98 Room Air 98.2 04/27/17 07:59 84 16 Room Air 21 Intake and Output 04/27/17 04/28/17 19:00 07:00 Intake Total 800 ml Output Total 1450 ml Balance -650 ml Intake Oral 800 ml Output Urine Total 1450 ml Laboratory Tests 04/28/17 03:20: White Blood Count 21.3H, Red Blood Count 3.09L, Hemoglobin 8.5L, Hematocrit 25.9L, Mean Corpuscular Volume 84, Mean Corpuscular Hemoglobin 27.4, Mean Corpuscular Hemoglobin Concent 32.7, Red Cell Distribution Width 13.0, Platelet Count 188, Mean Platelet Volume 10.1, Neutrophils (%) (Auto) , Lymphocytes (%) ( Auto) , Monocytes (%) (Auto) , Eosinophils (%) (Auto) , Basophils (%) (Auto) , Neutrophils % (Manual) [Pending], Lymphocytes % (Manual) [Pending], Platelet Estimate [Pending], Platelet Morphology [Pending], Erythrocyte Sedimentation Rate 124H, Sodium Level 132L, Potassium Level 4.3, Chloride Level 100, Carbon Dioxide Level 26, Anion Gap 6, Blood Urea Nitrogen 21H, Creatinine 1.9H, Estimat Glomerular Filtration Rate 33.6, Glucose Level 144H, Calcium Level 8.3L , Phosphorus Level 2.9, Magnesium Level 1.4L, Total Bilirubin 0.3, Aspartate Amino Transf (AST/SGOT) 8L, Alanine Aminotransferase (ALT/SGPT) < 6L, Alkaline Phosphatase 73, Total Protein 6.6, Albumin 1.2L, Globulin 5.4, Albumin/Globulin Ratio 0.2L, Vancomycin Level Trough 20.6H Height (Feet): 5 Height (Inches): 4.00 Weight (Pounds): 232 General Appearance: no apparent distress Neck: normal alignment Respiratory/Chest: lungs clear Abdomen: normal bowel sounds Pelvis: normal external exam Objective Current Medications Medications (Trade) Dose Ordered Sig/Artemio Route PRN Reason Start Time Stop Time Status Last Admin Dose Admin Acetaminophen (Tylenol) 650 mg Q4H PRN ORAL fever (temp>100.5F) 04/21/17 18:15 05/21/17 18:14 04/24/17 16:47 Ceftriaxone Sodium 2 gm/ Sodium Chloride 55 ml @ 110 mls/hr Q24H IVPB 04/22/17 20:00 04/29/17 19:59 04/27/17 21:20 Chlorhexidine Gluconate (Nasreen-Hex 2%) 1 applic DAILY@2000 TOPIC 04/25/17 20:00 05/25/17 19:59 04/27/17 21:20 Dextrose (Dextrose 50%) STAT PRN IV Hypoglycemia 04/21/17 18:15 05/21/17 18:14 Heparin Sodium (Porcine) (Heparin 5000 units/ml) 5,000 units EVERY 12 HOURS SUBQ 04/21/17 21:00 05/21/17 20:59 04/27/17 21:25 Insulin Aspart (NovoLOG) BEFORE MEALS AND HS SUBQ 04/21/17 21:00 05/21/17 20:59 04/27/17 21:24 Insulin Aspart (NovoLOG) 12 units NOVOTIAC SUBQ 04/24/17 11:50 05/24/17 11:49 04/25/17 06:15 Insulin Detemir (Levemir) 24 units Q12HR SUBQ 04/24/17 09:00 05/24/17 08:59 04/27/17 21:23 Lansoprazole (Prevacid) 30 mg DAILY ORAL 04/23/17 13:00 05/23/17 12:59 04/27/17 08:29 Metronidazole (Flagyl) 500 mg Q8HR ORAL 04/23/17 14:00 04/30/17 13:59 04/28/17 05:37 Micafungin Sodium 100 mg/Sodium Chloride 110 ml @ 110 mls/hr Q24H IVPB 04/26/17 17:00 05/03/17 16:59 04/27/17 18:07 Morphine Sulfate (Morphine Sulfate) 2 mg Q4H PRN IVP Moderate Pain (Pain Scale 4-6) 04/21/17 18:15 04/28/17 18:14 Nitroglycerin (Ntg) 0.4 mg Q5M PRN SL Prn Chest Pain 04/21/17 18:15 05/21/17 18:14 Ondansetron HCl (Zofran) 4 mg Q6H PRN IVP Nausea & Vomiting 04/21/17 18:15 05/21/17 18:14 Polyethylene Glycol (Miralax) 17 gm DAILYPRN PRN ORAL Constipation 04/21/17 18:15 05/21/17 18:14 Potassium Chloride (K-Dur) 40 meq DAILY ORAL 04/25/17 13:00 05/25/17 12:59 04/27/17 08:29 Temazepam (Restoril) 15 mg HSPRN PRN ORAL Insomnia 04/21/17 18:15 04/28/17 18:14 Vancomycin HCl (Vanco rx to dose) 1 ea DAILY PRN MISC Per rx protocol 04/24/17 16:00 05/24/17 15:59 Vancomycin HCl 1 gm/Dextrose 275 ml @ 183.708 mls/hr Q24H IVPB 04/26/17 06:00 05/01/17 05:59 04/28/17 05:29 Item Value Date Time Bedside Blood Glucose 171 mg/dl H 04/25/17 0647 Bedside Blood Glucose 406 mg/dl H 04/24/17 2100 Bedside Blood Glucose 380 mg/dl H 04/24/17 1739 Bedside Blood Glucose 350 mg/dl H 04/24/17 1238 Bedside Blood Glucose 354 mg/dl H 04/24/17 0927 Bedside Blood Glucose 332 mg/dl H 04/24/17 0630 Bedside Blood Glucose 375 mg/dl H 04/23/17 2207 Bedside Blood Glucose 160 mg/dl H 04/28/17 0640 Bedside Blood Glucose 181 mg/dl H 04/27/17 2124 Bedside Blood Glucose 216 mg/dl H 04/27/17 1724 Bedside Blood Glucose 198 mg/dl H 04/27/17 1130 Bedside Blood Glucose 227 mg/dl H 04/27/17 0832 Bedside Blood Glucose 198 mg/dl H 04/27/17 0619 ANSELMO TOMLIN 19, 2018 07:16
[2017-04-28 08:00] VITALS: BP 128/86
[2017-04-28] MEDS: Heparin 5000 units/ml inj SUBQ SCH ×2 (08:47→20:59)
[2017-04-28] MEDS: Levemir Flexpen SUBQ SCH ×2 (08:49→21:00)
--- NOTE | 2017-04-28 11:53 | General Surgery Progress Note ---
General Surgery-Progress Note Subjective Additional Comments patients states she is doing well. leukocytosis worse today. Objective Last 24 Hour Vital Signs Date Time Temp Pulse Resp B/P (MAP) Pulse Ox O2 Delivery O2 Flow Rate FiO2 04/28/17 08:00 100.0 97 20 128/86 98 100.0 04/28/17 04:00 98.2 90 19 138/80 98 98.2 04/28/17 00:00 101.7 93 20 145/84 98 101.7 04/27/17 20:00 99.3 88 20 139/88 97 99.3 04/27/17 19:00 88 18 Room Air 21 04/27/17 16:00 98.1 76 18 131/66 99 Room Air 98.1 04/27/17 12:00 97.7 90 19 134/85 97 Room Air 97.7 I&O Intake and Output 04/27/17 04/28/17 19:00 07:00 Intake Total 800 ml 680 ml Output Total 1450 ml 520 ml Balance -650 ml 160 ml Intake Oral 800 ml 680 ml Output Urine Total 1450 ml 520 ml Dressing: saturated Wound: clean, other - lateral open areas with packing and dressings. mild drainage, no collections noted. improved Drains: none Cardiovascular: RSR Respiratory: clear Abdomen: soft, flat Extremities: no tenderness Laboratory Tests Test 04/28/17 03:20 White Blood Count 21.3 K/UL (4.8-10.8) H Red Blood Count 3.09 M/UL (4.20-5.40) L Hemoglobin 8.5 G/DL (12.0-16.0) L Hematocrit 25.9 % (37.0-47.0) L Mean Corpuscular Volume 84 FL (80-99) Mean Corpuscular Hemoglobin 27.4 PG (27.0-31.0) Mean Corpuscular Hemoglobin Concent 32.7 G/DL (32.0-36.0) Red Cell Distribution Width 13.0 % (11.6-14.8) Platelet Count 188 K/UL (150-450) Mean Platelet Volume 10.1 FL (6.5-10.1) Neutrophils (%) (Auto) % (45.0-75.0) Lymphocytes (%) (Auto) % (20.0-45.0) Monocytes (%) (Auto) % (1.0-10.0) Eosinophils (%) (Auto) % (0.0-3.0) Basophils (%) (Auto) % (0.0-2.0) Differential Total Cells Counted 100 Neutrophils % (Manual) 84 % (45-75) H Lymphocytes % (Manual) 6 % (20-45) L Monocytes % (Manual) 10 % (1-10) Eosinophils % (Manual) 0 % (0-3) Basophils % (Manual) 0 % (0-2) Band Neutrophils 0 % (0-8) Platelet Estimate Adequate Platelet Morphology Normal Hypochromasia 1+ Erythrocyte Sedimentation Rate 124 MM/HR (0-30) H Sodium Level 132 MMOL/L (136-145) L Potassium Level 4.3 MMOL/L (3.5-5.1) Chloride Level 100 MMOL/L (98-107) Carbon Dioxide Level 26 MMOL/L (21-32) Anion Gap 6 mmol/L (5-15) Blood Urea Nitrogen 21 mg/dL (7-18) H Creatinine 1.9 MG/DL (0.55-1.30) H Estimat Glomerular Filtration Rate 33.6 mL/min (>60) Glucose Level 144 MG/DL (74-106) H Calcium Level 8.3 MG/DL (8.5-10.1) L Phosphorus Level 2.9 MG/DL (2.5-4.9) Magnesium Level 1.4 MG/DL (1.8-2.4) L Total Bilirubin 0.3 MG/DL (0.2-1.0) Aspartate Amino Transf (AST/SGOT) 8 U/L (15-37) L Alanine Aminotransferase (ALT/SGPT) < 6 U/L (12-78) L Alkaline Phosphatase 73 U/L (46-116) Total Protein 6.6 G/DL (6.4-8.2) Albumin 1.2 G/DL (3.4-5.0) L Globulin 5.4 g/dL Albumin/Globulin Ratio 0.2 (1.0-2.7) L Vancomycin Level Trough 20.6 ug/mL (5.0-12.0) H Plan Problems: (1) Abscess of left leg Assessment & Plan: large abscess in left distal lateral leg down to muscle and tendon. large area of fluctuance. with patients consent incision and drainage was performed at bedside on 04/23/2017. 50-75cc of pus evacuated and sent for micro. wound cleaned and dressings applied. afebrile, HD stable, leukocytosis wound improving. edema improving. MRI Impression: Positive for osteomyelitis of the distal fibula, with evidence of bony destruction More subtle marrow changes as described in the talus and calcaneus, also suspicious for osteomyelitis Evidence of soft tissue cellulitis both laterally and medially. No drainable abscess Abnormal peroneus longus tendon, may indicate inflammation or infection. Possible damage to the distal peroneus brevis tendon wound cleaned. slowly improving. packing and dressings reapplied. Afebrile, leukocytosis worse, wound stable. Microbiology reviewed. -cont Abx. as per ID -dressings and packing TID. please ensure to pack wound and not just cover wound with dressings -will likely need wound care for some time. May even progress to amputation which patient is aware of. thank you for this consult. will follow with recs. Sandro Ramirez Apr 28, 2017 11:53
[2017-04-28 12:00] VITALS: BP 137/73
[2017-04-28] MEDS: Nateglinide 60mg tab ORAL SCH ×2 (12:03→16:51)
--- NOTE | 2017-04-28 12:48 | Infectious Diseases Prog Note ---
Assessment/Plan Assessment/Plan Sepsis L Leg cellulitis., large abscess (polymicrobial), infected ankle wound and OM c/ w polymicrobial bacteremia -MRI L leg: Positive for osteomyelitis of the distal fibula, with evidence of bony destruction. More subtle marrow changes as described in the talus and calcaneus, also suspicious for osteomyelitis. Evidence of soft tissue cellulitis both laterally and medially. No drainable abscess. Abnormal peroneus longus tendon, may indicate inflammation or infection. Possible damage to the distal peroneus brevis tendon - s/p bedside I+D 04/23: large abscess in left distal lateral leg down to muscle and tendon. large area of fluctuance. 50-75cc of pus evacuated; wound cx +1 K.pna (grissom S), +4 E. fecalis (grissom S) -Xray R tibia/fibula/ankle: Evidence of multiple lateral soft tissue ulcers in the distal leg and ankle. Evidence of destructive change of the distal fibula. This is highly suspicious for acute osteomyelitis. No acute bony trauma -wound cx from purulent discharge 04/22 #1: +2 MRSA, <1+ E. aerogens (S Ceftriaxone), +4 GBS; #2 +2 MRSA (S tetracycline, bactrim, vanco), +4 E. aerogens (S Ceftriaxone), E fecalis (grissom S) -ESR 116, CRP 27.7 Polymicrobial Gram positive bacteremia- -Bcx 04/21 2/4 + GBS, 2/4 CoNS, 1/4 S. aureus (sensi pending; suspect MRSA as MRSA isolated from wound) Bcx 04/22 1/4 yeast; 04/25 Bcx NTD -Echo:Limited (poor acoustic views)- no vegetations, no significant valve abnormalities Fungemia Fever, SP leukocytosis- worsening- r/o persistent bacteremia -u/a neg, ucx nTD 04/25 SP PICC Dm2 HTN hx of R transmetatarsal amputation reported PNC allergy- however tolerates Amoxicillin per daughter Plan: -Continue Ceftriaxone # 8 and IV Vancomycin #7, for polymicrobial (GBS, MRSA) L leg abscess, OM, bacteremia; duration for total of 42 days and Mycamine d# / - 21 Continue PO Flagyl d# 6/10-14 -04/23 SP IV Vancomycin #2 and Clindamycin #2 -04/22 SP IV Aztreonam #2 -f/u cx -monitor CBC/BMP, temperatures; Trend WBC and fever curve -wound care -weekly CBC, CMP, vanco through -repeat 2 sets of Bcx - Rec JOHN if repeat blood cx +ve -CXR 2v -Cdiff if diarrhea -not ready for discharge yet given persistent fevers and worsening Leukocytosis Subjective Allergies: Coded Allergies: PENICILLINS (Verified Allergy, Severe, SWOLLEN BODY, 04/23/17) Per Daughter, patient has tolerated Amoxicillin Tolerated Ceftriaxone 04/22/17 Subjective continues to be febrile, Tm 101.7 worsenign leukocytosis pending BCx 04/27 Cr improving Objective Vital Signs Last 24 Hour Vital Signs Date Time Temp Pulse Resp B/P (MAP) Pulse Ox O2 Delivery O2 Flow Rate FiO2 04/28/17 08:00 100.0 97 20 128/86 98 100.0 04/28/17 04:00 98.2 90 19 138/80 98 98.2 04/28/17 00:00 101.7 93 20 145/84 98 101.7 04/27/17 20:00 99.3 88 20 139/88 97 99.3 04/27/17 19:00 88 18 Room Air 21 04/27/17 16:00 98.1 76 18 131/66 99 Room Air 98.1 Height (Feet): 5 Height (Inches): 4.00 Weight (Pounds): 232 Objective General Appearance: WD/WN Lines, tubes and drains: peripheral HEENT: normocephalic, atraumatic Neck: non-tender, normal alignment Respiratory/Chest: chest wall non-tender, lungs clear Cardiovascular/Chest: normal peripheral pulses, normal rate Abdomen: normal bowel sounds, non tender Ext: R foot s/p metatarsal amputation- stump with no signs of infection L foot: dressings in place Microbiology Date/Time Source Procedure Growth Status 04/25/17 16:22 Blood Blood Culture - Preliminary NO GROWTH AFTER 48 HOURS Resulted 04/25/17 16:22 Blood Blood Culture - Preliminary NO GROWTH AFTER 48 HOURS Resulted Laboratory Tests Test 04/28/17 03:20 White Blood Count 21.3 K/UL (4.8-10.8) H Red Blood Count 3.09 M/UL (4.20-5.40) L Hemoglobin 8.5 G/DL (12.0-16.0) L Hematocrit 25.9 % (37.0-47.0) L Mean Corpuscular Volume 84 FL (80-99) Mean Corpuscular Hemoglobin 27.4 PG (27.0-31.0) Mean Corpuscular Hemoglobin Concent 32.7 G/DL (32.0-36.0) Red Cell Distribution Width 13.0 % (11.6-14.8) Platelet Count 188 K/UL (150-450) Mean Platelet Volume 10.1 FL (6.5-10.1) Neutrophils (%) (Auto) % (45.0-75.0) Lymphocytes (%) (Auto) % (20.0-45.0) Monocytes (%) (Auto) % (1.0-10.0) Eosinophils (%) (Auto) % (0.0-3.0) Basophils (%) (Auto) % (0.0-2.0) Differential Total Cells Counted 100 Neutrophils % (Manual) 84 % (45-75) H Lymphocytes % (Manual) 6 % (20-45) L Monocytes % (Manual) 10 % (1-10) Eosinophils % (Manual) 0 % (0-3) Basophils % (Manual) 0 % (0-2) Band Neutrophils 0 % (0-8) Platelet Estimate Adequate Platelet Morphology Normal Hypochromasia 1+ Erythrocyte Sedimentation Rate 124 MM/HR (0-30) H Sodium Level 132 MMOL/L (136-145) L Potassium Level 4.3 MMOL/L (3.5-5.1) Chloride Level 100 MMOL/L (98-107) Carbon Dioxide Level 26 MMOL/L (21-32) Anion Gap 6 mmol/L (5-15) Blood Urea Nitrogen 21 mg/dL (7-18) H Creatinine 1.9 MG/DL (0.55-1.30) H Estimat Glomerular Filtration Rate 33.6 mL/min (>60) Glucose Level 144 MG/DL (74-106) H Calcium Level 8.3 MG/DL (8.5-10.1) L Phosphorus Level 2.9 MG/DL (2.5-4.9) Magnesium Level 1.4 MG/DL (1.8-2.4) L Total Bilirubin 0.3 MG/DL (0.2-1.0) Aspartate Amino Transf (AST/SGOT) 8 U/L (15-37) L Alanine Aminotransferase (ALT/SGPT) < 6 U/L (12-78) L Alkaline Phosphatase 73 U/L (46-116) Total Protein 6.6 G/DL (6.4-8.2) Albumin 1.2 G/DL (3.4-5.0) L Globulin 5.4 g/dL Albumin/Globulin Ratio 0.2 (1.0-2.7) L Vancomycin Level Trough 20.6 ug/mL (5.0-12.0) H Current Medications Medications (Trade) Dose Ordered Sig/Artemio Route PRN Reason Start Time Stop Time Status Last Admin Dose Admin Acetaminophen (Tylenol) 650 mg Q4H PRN ORAL fever (temp>100.5F) 04/21/17 18:15 05/21/17 18:14 04/24/17 16:47 Ceftriaxone Sodium 2 gm/ Sodium Chloride 55 ml @ 110 mls/hr Q24H IVPB 04/22/17 20:00 04/29/17 19:59 04/27/17 21:20 Chlorhexidine Gluconate (Nasreen-Hex 2%) 1 applic DAILY@2000 TOPIC 04/25/17 20:00 05/25/17 19:59 04/27/17 21:20 Dextrose (Dextrose 50%) STAT PRN IV Hypoglycemia 04/21/17 18:15 05/21/17 18:14 Heparin Sodium (Porcine) (Heparin 5000 units/ml) 5,000 units EVERY 12 HOURS SUBQ 04/21/17 21:00 05/21/17 20:59 04/28/17 08:47 Insulin Aspart (NovoLOG) BEFORE MEALS AND HS SUBQ 04/21/17 21:00 05/21/17 20:59 04/28/17 12:05 Insulin Detemir (Levemir) 24 units Q12HR SUBQ 04/24/17 09:00 05/24/17 08:59 04/28/17 08:49 Lansoprazole (Prevacid) 30 mg DAILY ORAL 04/23/17 13:00 05/23/17 12:59 04/28/17 08:46 Magnesium Sulfate 100 ml @ 100 mls/hr Q1H IVPB 04/28/17 11:30 04/28/17 13:29 04/28/17 12:04 Metronidazole (Flagyl) 500 mg Q8HR ORAL 04/23/17 14:00 04/30/17 13:59 04/28/17 05:37 Micafungin Sodium 100 mg/Sodium Chloride 110 ml @ 110 mls/hr Q24H IVPB 04/26/17 17:00 05/03/17 16:59 04/27/17 18:07 Morphine Sulfate (Morphine Sulfate) 2 mg Q4H PRN IVP Moderate Pain (Pain Scale 4-6) 04/21/17 18:15 04/28/17 18:14 Nateglinide (Starlix) 60 mg TIAC ORAL 04/28/17 11:30 05/28/17 11:29 04/28/17 12:03 Nitroglycerin (Ntg) 0.4 mg Q5M PRN SL Prn Chest Pain 04/21/17 18:15 05/21/17 18:14 Ondansetron HCl (Zofran) 4 mg Q6H PRN IVP Nausea & Vomiting 04/21/17 18:15 05/21/17 18:14 Polyethylene Glycol (Miralax) 17 gm DAILYPRN PRN ORAL Constipation 04/21/17 18:15 05/21/17 18:14 Potassium Chloride (K-Dur) 40 meq DAILY ORAL 04/25/17 13:00 05/25/17 12:59 04/28/17 08:46 Temazepam (Restoril) 15 mg HSPRN PRN ORAL Insomnia 04/21/17 18:15 04/28/17 18:14 Vancomycin HCl (Vanco rx to dose) 1 ea DAILY PRN MISC Per rx protocol 04/24/17 16:00 05/24/17 15:59 Vancomycin HCl 1 gm/Dextrose 275 ml @ 183.708 mls/hr Q24H IVPB 04/26/17 06:00 05/01/17 05:59 04/28/17 05:29 Faye Foy M.D. Apr 28, 2017 12:48
--- NOTE | 2017-04-28 15:32 | Nephrology Progress Note ---
Assessment/Plan Problem List: (1) CKD (chronic kidney disease) (2) Diabetic nephropathy (3) Anemia in chronic kidney disease Assessment Renal Assessment: Renal failure- ? Diabetic nephropathy , CKD cr down to 2 Anemia HypoAlbuminemia r/o Nephrotic State Other: Sepsis due to L Leg cellulitis/abscess c/w bacteremia- r/o Strep necrotizing infection- rising WBCs Fever/leukocytosis Dm2 HTN hx of R transmetatarsal amputation reported PNC allergy- Plan Plan: Per ID 24 H urine protein over 3 grams K supplement Anemia li avoid nephrotoxics per orders Objective Objective Last 24 Hour Vital Signs Date Time Temp Pulse Resp B/P (MAP) Pulse Ox O2 Delivery O2 Flow Rate FiO2 04/28/17 12:00 99.7 97 20 137/73 98 99.7 04/28/17 08:00 100.0 97 20 128/86 98 100.0 04/28/17 04:00 98.2 90 19 138/80 98 98.2 04/28/17 00:00 101.7 93 20 145/84 98 101.7 04/27/17 20:00 99.3 88 20 139/88 97 99.3 04/27/17 19:00 88 18 Room Air 21 04/27/17 16:00 98.1 76 18 131/66 99 Room Air 98.1 Intake and Output 04/27/17 04/28/17 19:00 07:00 Intake Total 800 ml 680 ml Output Total 1450 ml 520 ml Balance -650 ml 160 ml Intake Oral 800 ml 680 ml Output Urine Total 1450 ml 520 ml Laboratory Tests 04/28/17 03:20: White Blood Count 21.3H, Red Blood Count 3.09L, Hemoglobin 8.5L, Hematocrit 25.9L, Mean Corpuscular Volume 84, Mean Corpuscular Hemoglobin 27.4, Mean Corpuscular Hemoglobin Concent 32.7, Red Cell Distribution Width 13.0, Platelet Count 188, Mean Platelet Volume 10.1, Neutrophils (%) (Auto) , Lymphocytes (%) ( Auto) , Monocytes (%) (Auto) , Eosinophils (%) (Auto) , Basophils (%) (Auto) , Differential Total Cells Counted 100, Neutrophils % (Manual) 84H, Lymphocytes % (Manual) 6L, Monocytes % (Manual) 10, Eosinophils % (Manual) 0, Basophils % ( Manual) 0, Band Neutrophils 0, Platelet Estimate Adequate, Platelet Morphology Normal, Hypochromasia 1+, Erythrocyte Sedimentation Rate 124H, Sodium Level 132L , Potassium Level 4.3, Chloride Level 100, Carbon Dioxide Level 26, Anion Gap 6 , Blood Urea Nitrogen 21H, Creatinine 1.9H, Estimat Glomerular Filtration Rate 33.6, Glucose Level 144H, Calcium Level 8.3L, Phosphorus Level 2.9, Magnesium Level 1.4L, Total Bilirubin 0.3, Aspartate Amino Transf (AST/SGOT) 8L, Alanine Aminotransferase (ALT/SGPT) < 6L, Alkaline Phosphatase 73, Total Protein 6.6, Albumin 1.2L, Globulin 5.4, Albumin/Globulin Ratio 0.2L, Vancomycin Level Trough 20.6H Height (Feet): 5 Height (Inches): 4.00 Weight (Pounds): 232 Objective no change IBETH ROSAS Apr 28, 2017 15:31
[2017-04-28 16:00] VITALS: BP 124/73
--- NOTE | 2017-04-28 16:29 | Diagnostic Imaging Report ---
Indication: Cough Technique: One view of the chest Comparison: 05/13/2011 Findings: Interim placement left arm PICC. There is right basilar atelectasis and some consolidation. The left lung and bilateral pleural spaces are clear. The heart size is upper limits of normal Impression: Right basilar atelectasis and possibly infiltrate
[2017-04-28] MEDS: Micafungin 100 MG in NS 110 ML IVPB SCH (16:53)
--- NOTE | 2017-04-28 18:30 | Progress Note ---
DATE: 04/28/2017 SUBJECTIVE: The patient is doing better. No anxiety. She still has episodes of depression in regards to her medical condition. MENTAL STATUS EXAMINATION: The patient is alert and oriented times self, place, and situation. Mood is dysphoric. Affect is constricted. Congruent with mood. Thought process is concrete. Thought content, no suicidal or homicidal ideation. Cognition is intact. ASSESSMENT: Major depressive disorder, improving. PLAN: 1. We will continue the current medications. 2. Provide the patient with supportive therapy and reality orientation. Remington Kimbrough M.D. DR: Елена JOB#: [id number] CC:
[2017-04-28 20:00] VITALS: BP 121/64
--- NOTE | 2017-04-28 20:25 | Pulmonology Progress Note ---
Assessment/Plan Problems: (1) Bacteremia (2) Fungemia (3) Cellulitis, leg (4) Abscess of left leg (5) Diabetes mellitus Assessment/Plan imprivng iv abx, On micafungin now sliding sclae wound care s/p drainage of the abscess + osteomyelitis needs a few weeks of IV abx PICC line in placed dc to snf with iv abx when OK with ID Subjective ROS Limited/Unobtainable: No Constitutional: Reports: no symptoms HEENT: Repors: no symptoms Respiratory: Reports: no symptoms Allergies: Coded Allergies: PENICILLINS (Verified Allergy, Severe, SWOLLEN BODY, 04/23/17) Per Daughter, patient has tolerated Amoxicillin Tolerated Ceftriaxone 04/22/17 Objective Last 24 Hour Vital Signs Date Time Temp Pulse Resp B/P (MAP) Pulse Ox O2 Delivery O2 Flow Rate FiO2 04/28/17 16:00 97.8 97 20 124/73 98 97.8 04/28/17 12:00 99.7 97 20 137/73 98 99.7 04/28/17 08:00 100.0 97 20 128/86 98 100.0 04/28/17 04:00 98.2 90 19 138/80 98 98.2 04/28/17 00:00 101.7 93 20 145/84 98 101.7 Intake and Output 04/27/17 04/28/17 19:00 07:00 Intake Total 800 ml 680 ml Output Total 1450 ml 520 ml Balance -650 ml 160 ml Intake Oral 800 ml 680 ml Output Urine Total 1450 ml 520 ml Objective General Appearance: cachectic HEENT: normocephalic, atraumatic, anicteric Respiratory/Chest: chest wall non-tender, Breasts: no masses Cardiovascular: normal peripheral pulses Abdomen: normal bowel sounds Genitourinary: normal external genitalia Microbiology Date/Time Source Procedure Growth Status 04/27/17 04:00 Blood Blood Culture - Preliminary Resulted Laboratory Tests 04/28/17 03:20: White Blood Count 21.3H, Red Blood Count 3.09L, Hemoglobin 8.5L, Hematocrit 25.9L, Mean Corpuscular Volume 84, Mean Corpuscular Hemoglobin 27.4, Mean Corpuscular Hemoglobin Concent 32.7, Red Cell Distribution Width 13.0, Platelet Count 188, Mean Platelet Volume 10.1, Neutrophils (%) (Auto) , Lymphocytes (%) ( Auto) , Monocytes (%) (Auto) , Eosinophils (%) (Auto) , Basophils (%) (Auto) , Differential Total Cells Counted 100, Neutrophils % (Manual) 84H, Lymphocytes % (Manual) 6L, Monocytes % (Manual) 10, Eosinophils % (Manual) 0, Basophils % ( Manual) 0, Band Neutrophils 0, Platelet Estimate Adequate, Platelet Morphology Normal, Hypochromasia 1+, Erythrocyte Sedimentation Rate 124H, Sodium Level 132L , Potassium Level 4.3, Chloride Level 100, Carbon Dioxide Level 26, Anion Gap 6 , Blood Urea Nitrogen 21H, Creatinine 1.9H, Estimat Glomerular Filtration Rate 33.6, Glucose Level 144H, Calcium Level 8.3L, Phosphorus Level 2.9, Magnesium Level 1.4L, Total Bilirubin 0.3, Aspartate Amino Transf (AST/SGOT) 8L, Alanine Aminotransferase (ALT/SGPT) < 6L, Alkaline Phosphatase 73, Total Protein 6.6, Albumin 1.2L, Globulin 5.4, Albumin/Globulin Ratio 0.2L, Vancomycin Level Trough 20.6H Current Medications Medications (Trade) Dose Ordered Sig/Artemio Route PRN Reason Start Time Stop Time Status Last Admin Dose Admin Acetaminophen (Tylenol) 650 mg Q4H PRN ORAL fever (temp>100.5F) 04/21/17 18:15 05/21/17 18:14 04/24/17 16:47 Ceftriaxone Sodium 2 gm/ Sodium Chloride 55 ml @ 110 mls/hr Q24H IVPB 04/22/17 20:00 04/29/17 19:59 04/27/17 21:20 Chlorhexidine Gluconate (Nasreen-Hex 2%) 1 applic DAILY@2000 TOPIC 04/25/17 20:00 05/25/17 19:59 04/27/17 21:20 Dextrose (Dextrose 50%) STAT PRN IV Hypoglycemia 04/21/17 18:15 05/21/17 18:14 Heparin Sodium (Porcine) (Heparin 5000 units/ml) 5,000 units EVERY 12 HOURS SUBQ 04/21/17 21:00 05/21/17 20:59 04/28/17 08:47 Insulin Aspart (NovoLOG) BEFORE MEALS AND HS SUBQ 04/21/17 21:00 05/21/17 20:59 04/28/17 12:05 Insulin Detemir (Levemir) 24 units Q12HR SUBQ 04/24/17 09:00 05/24/17 08:59 04/28/17 08:49 Lansoprazole (Prevacid) 30 mg DAILY ORAL 04/23/17 13:00 05/23/17 12:59 04/28/17 08:46 Metronidazole (Flagyl) 500 mg Q8HR ORAL 04/23/17 14:00 04/30/17 13:59 04/28/17 16:52 Micafungin Sodium 100 mg/Sodium Chloride 110 ml @ 110 mls/hr Q24H IVPB 04/26/17 17:00 05/03/17 16:59 04/28/17 16:53 Nateglinide (Starlix) 60 mg TIAC ORAL 04/28/17 11:30 05/28/17 11:29 04/28/17 16:51 Nitroglycerin (Ntg) 0.4 mg Q5M PRN SL Prn Chest Pain 04/21/17 18:15 05/21/17 18:14 Ondansetron HCl (Zofran) 4 mg Q6H PRN IVP Nausea & Vomiting 04/21/17 18:15 05/21/17 18:14 Polyethylene Glycol (Miralax) 17 gm DAILYPRN PRN ORAL Constipation 04/21/17 18:15 05/21/17 18:14 Potassium Chloride (K-Dur) 40 meq DAILY ORAL 04/25/17 13:00 05/25/17 12:59 04/28/17 08:46 Vancomycin HCl (Vanco rx to dose) 1 ea DAILY PRN MISC Per rx protocol 04/24/17 16:00 05/24/17 15:59 Vancomycin HCl 1 gm/Dextrose 275 ml @ 183.708 mls/hr Q24H IVPB 04/26/17 06:00 05/01/17 05:59 04/28/17 05:29 Ruby Richmond MD Apr 28, 2017 20:25
[2017-04-28] MEDS: cefTRIAXone 2 GM in NS 55 ML IVPB SCH (20:57)
[2017-04-28] MEDS: Dyna-Hex 2% Top Sol 2oz TOPIC SCH (20:57)
[2017-04-29] VITALS: BP 123/62
[2017-04-29 04:00] VITALS: BP 128/68
[2017-04-29] MEDS: Nateglinide 60mg tab ORAL SCH ×3 (06:14→17:18)
[2017-04-29] MEDS: NovoLOG Insulin Flexpen SUBQ SCH ×4 (06:14→20:06)
[2017-04-29] MEDS: Vancomycin 1gm in D5W 275ml IVPB SCH (06:14)
[2017-04-29] MEDS: metroNIDAZOLE 500mg tab ORAL SCH ×3 (06:14→20:09)
--- NOTE | 2017-04-29 07:45 | General Progress Note ---
Assessment/Plan Problem List: (1) Cellulitis, leg ICD Codes: L03.119 - Cellulitis of unspecified part of limb SNOMED: 877385451 (2) Diabetes mellitus ICD Codes: E11.9 - Type 2 diabetes mellitus without complications SNOMED: 97730927 (3) CKD (chronic kidney disease) ICD Codes: N18.9 - Chronic kidney disease, unspecified SNOMED: 490848346 (4) Diabetic nephropathy ICD Codes: E11.21 - Type 2 diabetes mellitus with diabetic nephropathy SNOMED: 65812256, 764459413 (5) Anemia in chronic kidney disease ICD Codes: N18.9 - Chronic kidney disease, unspecified; D63.1 - Anemia in chronic kidney disease SNOMED: 187558749, 274224947 Assessment/Plan reduce Levemir to 20 units bid continue Starlix 60 mg ac tid continue NISS Subjective Allergies: Coded Allergies: PENICILLINS (Verified Allergy, Severe, SWOLLEN BODY, 04/23/17) Per Daughter, patient has tolerated Amoxicillin Tolerated Ceftriaxone 04/22/17 All Systems: reviewed and negative except above Subjective events noted interval notes reviewed BG values improved fasting glucose on lower side Objective Last 24 Hour Vital Signs Date Time Temp Pulse Resp B/P (MAP) Pulse Ox O2 Delivery O2 Flow Rate FiO2 04/29/17 04:00 98.4 87 18 128/68 100 Room Air 98.4 04/29/17 00:00 99.1 88 18 123/62 98 Room Air 99.1 04/28/17 20:00 101.5 90 18 121/64 98 Room Air 101.5 04/28/17 16:00 97.8 97 20 124/73 98 97.8 04/28/17 12:00 99.7 97 20 137/73 98 99.7 04/28/17 08:00 100.0 97 20 128/86 98 100.0 Intake and Output 04/28/17 04/29/17 19:00 07:00 Intake Total 250 ml Output Total 400 ml Balance 250 ml -400 ml Intake Oral 250 ml Output Urine Total 400 ml # Voids 2 Height (Feet): 5 Height (Inches): 4.00 Weight (Pounds): 232 General Appearance: no apparent distress Neck: normal alignment Cardiovascular: normal rate Respiratory/Chest: chest wall non-tender, lungs clear Abdomen: normal bowel sounds Objective Current Medications Medications (Trade) Dose Ordered Sig/Artemio Route PRN Reason Start Time Stop Time Status Last Admin Dose Admin Acetaminophen (Tylenol) 650 mg Q4H PRN ORAL fever (temp>100.5F) 04/21/17 18:15 05/21/17 18:14 04/24/17 16:47 Ceftriaxone Sodium 2 gm/ Sodium Chloride 55 ml @ 110 mls/hr Q24H IVPB 04/22/17 20:00 04/29/17 19:59 04/28/17 20:57 Chlorhexidine Gluconate (Nasreen-Hex 2%) 1 applic DAILY@2000 TOPIC 04/25/17 20:00 05/25/17 19:59 04/28/17 20:57 Dextrose (Dextrose 50%) STAT PRN IV Hypoglycemia 04/21/17 18:15 05/21/17 18:14 Heparin Sodium (Porcine) (Heparin 5000 units/ml) 5,000 units EVERY 12 HOURS SUBQ 04/21/17 21:00 05/21/17 20:59 04/28/17 20:59 Insulin Aspart (NovoLOG) BEFORE MEALS AND HS SUBQ 04/21/17 21:00 05/21/17 20:59 04/28/17 21:02 Insulin Detemir (Levemir) 24 units Q12HR SUBQ 04/24/17 09:00 05/24/17 08:59 04/28/17 21:00 Lansoprazole (Prevacid) 30 mg DAILY ORAL 04/23/17 13:00 05/23/17 12:59 04/28/17 08:46 Metronidazole (Flagyl) 500 mg Q8HR ORAL 04/23/17 14:00 04/30/17 13:59 04/29/17 06:14 Micafungin Sodium 100 mg/Sodium Chloride 110 ml @ 110 mls/hr Q24H IVPB 04/26/17 17:00 05/03/17 16:59 04/28/17 16:53 Nateglinide (Starlix) 60 mg TIAC ORAL 04/28/17 11:30 05/28/17 11:29 04/29/17 06:14 Nitroglycerin (Ntg) 0.4 mg Q5M PRN SL Prn Chest Pain 04/21/17 18:15 05/21/17 18:14 Ondansetron HCl (Zofran) 4 mg Q6H PRN IVP Nausea & Vomiting 04/21/17 18:15 05/21/17 18:14 Polyethylene Glycol (Miralax) 17 gm DAILYPRN PRN ORAL Constipation 04/21/17 18:15 05/21/17 18:14 Potassium Chloride (K-Dur) 40 meq DAILY ORAL 04/25/17 13:00 05/25/17 12:59 04/28/17 08:46 Vancomycin HCl (Vanco rx to dose) 1 ea DAILY PRN MISC Per rx protocol 04/24/17 16:00 05/24/17 15:59 Vancomycin HCl 1 gm/Dextrose 275 ml @ 183.708 mls/hr Q24H IVPB 04/26/17 06:00 05/01/17 05:59 04/29/17 06:14 Item Value Date Time Bedside Blood Glucose 83 mg/dl 04/29/17 0630 Bedside Blood Glucose 171 mg/dl H 04/28/17 2102 Bedside Blood Glucose 181 mg/dl H 04/28/17 1630 Bedside Blood Glucose 220 mg/dl H 04/28/17 1205 Bedside Blood Glucose 160 mg/dl H 04/28/17 0849 ANSELMO TOMLIN 20, 2018 07:45
[2017-04-29 08:00] VITALS: BP 128/78
[2017-04-29 08:20] LABS: HEMATOCRIT 26.2 % (37.0-47.0); HEMOGLOBIN 8.3 G/DL (12.0-16.0); MEAN CORPUSCULAR VOLUME 85 FL (80-99); PLATELET COUNT 228 K/UL (150-450); RED BLOOD COUNT 3.07 M/UL (4.20-5.40); RED CELL DISTRIBUTION WIDTH 13.6 % (11.6-14.8)
[2017-04-29 08:21] LABS: WHITE BLOOD COUNT 23.7 K/UL (4.8-10.8)
[2017-04-29 08:57] LABS: ALANINE AMINOTRANSFERASE < 6 U/L (12-78); ALBUMIN 1.2 G/DL (3.4-5.0); ALBUMIN/GLOBULIN RATIO 0.2 (1.0-2.7); ALKALINE PHOSPHATASE 72 U/L (46-116); ANION GAP 9 mmol/L (5-15); ASPARTATE AMINO TRANSFERASE 11 U/L (15-37); BILIRUBIN,TOTAL 0.3 MG/DL (0.2-1.0); BLOOD UREA NITROGEN 20 mg/dL (7-18); CALCIUM 8.7 MG/DL (8.5-10.1); CARBON DIOXIDE 23 MMOL/L (21-32); CHLORIDE 104 MMOL/L (98-107); CREATININE 1.9 MG/DL (0.55-1.30); PHOSPHORUS 3.2 MG/DL (2.5-4.9); POTASSIUM 4.4 MMOL/L (3.5-5.1); SODIUM 136 MMOL/L (136-145)
[2017-04-29] MEDS: Levemir Flexpen SUBQ SCH ×2 (09:09→20:06)
[2017-04-29] MEDS: Heparin 5000 units/ml inj SUBQ SCH ×2 (09:11→20:09)
[2017-04-29 12:00] VITALS: BP 118/69
--- NOTE | 2017-04-29 12:22 | Infectious Diseases Prog Note ---
Assessment/Plan Assessment/Plan Sepsis , ongoing L Leg cellulitis., large abscess (polymicrobial), infected ankle wound and OM c/ w polymicrobial bacteremia- improving abscess/cellulitis after I+D, however persistent bacteremia -MRI L leg: Positive for osteomyelitis of the distal fibula, with evidence of bony destruction. More subtle marrow changes as described in the talus and calcaneus, also suspicious for osteomyelitis. Evidence of soft tissue cellulitis both laterally and medially. No drainable abscess. Abnormal peroneus longus tendon, may indicate inflammation or infection. Possible damage to the distal peroneus brevis tendon - s/p bedside I+D 04/23: large abscess in left distal lateral leg down to muscle and tendon. large area of fluctuance. 50-75cc of pus evacuated; wound cx +1 K.pna (grissom S), +4 E. fecalis (grissom S) -Xray R tibia/fibula/ankle: Evidence of multiple lateral soft tissue ulcers in the distal leg and ankle. Evidence of destructive change of the distal fibula. This is highly suspicious for acute osteomyelitis. No acute bony trauma -wound cx from purulent discharge 04/22 #1: +2 MRSA, <1+ E. aerogens (S Ceftriaxone), +4 GBS; #2 +2 MRSA (S tetracycline, bactrim, vanco), +4 E. aerogens (S Ceftriaxone), E fecalis (grissom S) -ESR 116, CRP 27.7 Polymicrobial Gram positive bacteremia-> persistent Gram positive bacteremia -Bcx 04/21 2/4 + GBS, 2/4 CoNS, 1/4MRSA, Bcx 04/22 14 yeast; 04/25 Bcx NTD; Bcx 1/4 GPC clusters -Echo:Limited (poor acoustic views)- no vegetations, no significant valve abnormalities Fungemia -Bcx 04/22 1/4 C. glabrata (sensi pending) Fever, SP leukocytosis- worsening- r/o endocarditis, occult abscess -u/a neg, ucx nTD ?PNA -CXR: Right basilar atelectasis and possibly infiltrate 04/25 SP PICC Dm2 HTN hx of R transmetatarsal amputation reported PNC allergy- however tolerates Amoxicillin per daughter Plan: -Continue Ceftriaxone # 9 and IV Vancomycin #8, for polymicrobial (GBS, MRSA) L leg abscess, OM, bacteremia; duration for total of 42 days and Mycamine d# 4 / 14 - 21 Continue PO Flagyl d# 7/10-14 -04/23 SP IV Vancomycin #2 and Clindamycin #2 -04/22 SP IV Aztreonam #2 -Given persistent fevers, bacteremia and limited TTE, will need JOHN to evaluate for endocarditis -CT chest/abd/p w/o contrast (given LALI) to eval for occult abscess -f/u repeat 2 sets Bcx 04/28 -Cdiff if diarrhea -sp cx -f/u cx -monitor CBC/BMP, temperatures; Trend WBC and fever curve -wound care -weekly CBC, CMP, vanco through -not ready for discharge yet given persistent fevers and worsening Leukocytosis Discussed with RN, Dr Richmond and Dr Ramirez. Subjective Allergies: Coded Allergies: PENICILLINS (Verified Allergy, Severe, SWOLLEN BODY, 04/23/17) Per Daughter, patient has tolerated Amoxicillin Tolerated Ceftriaxone 04/22/17 Subjective continues to be febrile, Tm 101.5 worsenign leukocytosis still bacteremic as of 04/27 Objective Vital Signs Last 24 Hour Vital Signs Date Time Temp Pulse Resp B/P (MAP) Pulse Ox O2 Delivery O2 Flow Rate FiO2 04/29/17 08:00 97.9 94 18 128/78 100 Room Air 97.9 04/29/17 04:00 98.4 87 18 128/68 100 Room Air 98.4 04/29/17 00:00 99.1 88 18 123/62 98 Room Air 99.1 04/28/17 20:00 101.5 90 18 121/64 98 Room Air 101.5 04/28/17 16:00 97.8 97 20 124/73 98 97.8 Height (Feet): 5 Height (Inches): 4.00 Weight (Pounds): 232 Objective General Appearance: WD/WN Lines, tubes and drains: peripheral HEENT: normocephalic, atraumatic Neck: non-tender, normal alignment Respiratory/Chest: chest wall non-tender, lungs clear Cardiovascular/Chest: normal peripheral pulses, normal rate Abdomen: normal bowel sounds, non tender Ext: R foot s/p metatarsal amputation- stump with no signs of infection L foot: dressings in place Microbiology Date/Time Source Procedure Growth Status 04/27/17 11:20 Blood Blood Culture - Preliminary NO GROWTH AFTER 24 HOURS Resulted 04/27/17 04:00 Blood Blood Culture - Preliminary Resulted Laboratory Tests Test 04/29/17 06:25 White Blood Count 23.7 K/UL (4.8-10.8) *H Red Blood Count 3.07 M/UL (4.20-5.40) L Hemoglobin 8.3 G/DL (12.0-16.0) L Hematocrit 26.2 % (37.0-47.0) L Mean Corpuscular Volume 85 FL (80-99) Mean Corpuscular Hemoglobin 27.2 PG (27.0-31.0) Mean Corpuscular Hemoglobin Concent 31.8 G/DL (32.0-36.0) L Red Cell Distribution Width 13.6 % (11.6-14.8) Platelet Count 228 K/UL (150-450) Mean Platelet Volume 8.1 FL (6.5-10.1) Neutrophils (%) (Auto) % (45.0-75.0) Lymphocytes (%) (Auto) % (20.0-45.0) Monocytes (%) (Auto) % (1.0-10.0) Eosinophils (%) (Auto) % (0.0-3.0) Basophils (%) (Auto) % (0.0-2.0) Differential Total Cells Counted 100 Neutrophils % (Manual) 85 % (45-75) H Lymphocytes % (Manual) 4 % (20-45) L Monocytes % (Manual) 9 % (1-10) Eosinophils % (Manual) 1 % (0-3) Basophils % (Manual) 0 % (0-2) Band Neutrophils 1 % (0-8) Platelet Estimate Adequate Platelet Morphology Normal Hypochromasia 1+ Erythrocyte Sedimentation Rate 128 MM/HR (0-30) H Sodium Level 136 MMOL/L (136-145) Potassium Level 4.4 MMOL/L (3.5-5.1) Chloride Level 104 MMOL/L (98-107) Carbon Dioxide Level 23 MMOL/L (21-32) Anion Gap 9 mmol/L (5-15) Blood Urea Nitrogen 20 mg/dL (7-18) H Creatinine 1.9 MG/DL (0.55-1.30) H Estimat Glomerular Filtration Rate 33.6 mL/min (>60) Glucose Level 63 MG/DL (74-106) L Calcium Level 8.7 MG/DL (8.5-10.1) Phosphorus Level 3.2 MG/DL (2.5-4.9) Magnesium Level 2.1 MG/DL (1.8-2.4) Total Bilirubin 0.3 MG/DL (0.2-1.0) Aspartate Amino Transf (AST/SGOT) 11 U/L (15-37) L Alanine Aminotransferase (ALT/SGPT) < 6 U/L (12-78) L Alkaline Phosphatase 72 U/L (46-116) Total Protein 6.7 G/DL (6.4-8.2) Albumin 1.2 G/DL (3.4-5.0) L Globulin 5.5 g/dL Albumin/Globulin Ratio 0.2 (1.0-2.7) L Current Medications Medications (Trade) Dose Ordered Sig/Artemio Route PRN Reason Start Time Stop Time Status Last Admin Dose Admin Acetaminophen (Tylenol) 650 mg Q4H PRN ORAL fever (temp>100.5F) 04/21/17 18:15 05/21/17 18:14 04/24/17 16:47 Ceftriaxone Sodium 2 gm/ Sodium Chloride 55 ml @ 110 mls/hr Q24H IVPB 04/22/17 20:00 04/29/17 19:59 04/28/17 20:57 Chlorhexidine Gluconate (Nasreen-Hex 2%) 1 applic DAILY@2000 TOPIC 04/25/17 20:00 05/25/17 19:59 04/28/17 20:57 Dextrose (Dextrose 50%) STAT PRN IV Hypoglycemia 04/21/17 18:15 05/21/17 18:14 Heparin Sodium (Porcine) (Heparin 5000 units/ml) 5,000 units EVERY 12 HOURS SUBQ 04/21/17 21:00 05/21/17 20:59 04/29/17 09:11 Insulin Aspart (NovoLOG) BEFORE MEALS AND HS SUBQ 04/21/17 21:00 05/21/17 20:59 04/28/17 21:02 Insulin Detemir (Levemir) 20 units Q12HR SUBQ 04/29/17 09:00 05/29/17 08:59 04/29/17 09:09 Lansoprazole (Prevacid) 30 mg DAILY ORAL 04/23/17 13:00 05/23/17 12:59 04/29/17 09:05 Metronidazole (Flagyl) 500 mg Q8HR ORAL 04/23/17 14:00 04/30/17 13:59 04/29/17 06:14 Micafungin Sodium 100 mg/Sodium Chloride 110 ml @ 110 mls/hr Q24H IVPB 04/26/17 17:00 05/03/17 16:59 04/28/17 16:53 Nateglinide (Starlix) 60 mg TIAC ORAL 04/28/17 11:30 05/28/17 11:29 04/29/17 06:14 Nitroglycerin (Ntg) 0.4 mg Q5M PRN SL Prn Chest Pain 04/21/17 18:15 05/21/17 18:14 Ondansetron HCl (Zofran) 4 mg Q6H PRN IVP Nausea & Vomiting 04/21/17 18:15 05/21/17 18:14 Polyethylene Glycol (Miralax) 17 gm DAILYPRN PRN ORAL Constipation 04/21/17 18:15 05/21/17 18:14 Potassium Chloride (K-Dur) 40 meq DAILY ORAL 04/25/17 13:00 05/25/17 12:59 04/29/17 09:05 Vancomycin HCl (Vanco rx to dose) 1 ea DAILY PRN MISC Per rx protocol 04/24/17 16:00 05/24/17 15:59 Vancomycin HCl 1 gm/Dextrose 275 ml @ 183.708 mls/hr Q24H IVPB 04/26/17 06:00 05/01/17 05:59 04/29/17 06:14 Faye Foy M.D. Apr 29, 2017 12:22
--- NOTE | 2017-04-29 13:20 | General Surgery Progress Note ---
General Surgery-Progress Note Subjective Symptoms: worse Additional Comments febrile, worsening leukocytosis. Objective Last 24 Hour Vital Signs Date Time Temp Pulse Resp B/P (MAP) Pulse Ox O2 Delivery O2 Flow Rate FiO2 04/29/17 12:00 99.7 85 18 118/69 100 Room Air 99.7 04/29/17 08:00 97.9 94 18 128/78 100 Room Air 97.9 04/29/17 04:00 98.4 87 18 128/68 100 Room Air 98.4 04/29/17 00:00 99.1 88 18 123/62 98 Room Air 99.1 04/28/17 20:00 101.5 90 18 121/64 98 Room Air 101.5 04/28/17 16:00 97.8 97 20 124/73 98 97.8 I&O Intake and Output 04/28/17 04/29/17 19:00 07:00 Intake Total 250 ml Output Total 400 ml Balance 250 ml -400 ml Intake Oral 250 ml Output Urine Total 400 ml # Voids 2 Dressing: saturated Wound: other - ulcers improved. foot overall poor Drains: none Cardiovascular: RSR Respiratory: clear Abdomen: soft, flat, non-tender, present bowel sounds Extremities: no cyanosis Laboratory Tests Test 04/29/17 06:25 White Blood Count 23.7 K/UL (4.8-10.8) *H Red Blood Count 3.07 M/UL (4.20-5.40) L Hemoglobin 8.3 G/DL (12.0-16.0) L Hematocrit 26.2 % (37.0-47.0) L Mean Corpuscular Volume 85 FL (80-99) Mean Corpuscular Hemoglobin 27.2 PG (27.0-31.0) Mean Corpuscular Hemoglobin Concent 31.8 G/DL (32.0-36.0) L Red Cell Distribution Width 13.6 % (11.6-14.8) Platelet Count 228 K/UL (150-450) Mean Platelet Volume 8.1 FL (6.5-10.1) Neutrophils (%) (Auto) % (45.0-75.0) Lymphocytes (%) (Auto) % (20.0-45.0) Monocytes (%) (Auto) % (1.0-10.0) Eosinophils (%) (Auto) % (0.0-3.0) Basophils (%) (Auto) % (0.0-2.0) Differential Total Cells Counted 100 Neutrophils % (Manual) 85 % (45-75) H Lymphocytes % (Manual) 4 % (20-45) L Monocytes % (Manual) 9 % (1-10) Eosinophils % (Manual) 1 % (0-3) Basophils % (Manual) 0 % (0-2) Band Neutrophils 1 % (0-8) Platelet Estimate Adequate Platelet Morphology Normal Hypochromasia 1+ Erythrocyte Sedimentation Rate 128 MM/HR (0-30) H Sodium Level 136 MMOL/L (136-145) Potassium Level 4.4 MMOL/L (3.5-5.1) Chloride Level 104 MMOL/L (98-107) Carbon Dioxide Level 23 MMOL/L (21-32) Anion Gap 9 mmol/L (5-15) Blood Urea Nitrogen 20 mg/dL (7-18) H Creatinine 1.9 MG/DL (0.55-1.30) H Estimat Glomerular Filtration Rate 33.6 mL/min (>60) Glucose Level 63 MG/DL (74-106) L Calcium Level 8.7 MG/DL (8.5-10.1) Phosphorus Level 3.2 MG/DL (2.5-4.9) Magnesium Level 2.1 MG/DL (1.8-2.4) Total Bilirubin 0.3 MG/DL (0.2-1.0) Aspartate Amino Transf (AST/SGOT) 11 U/L (15-37) L Alanine Aminotransferase (ALT/SGPT) < 6 U/L (12-78) L Alkaline Phosphatase 72 U/L (46-116) Total Protein 6.7 G/DL (6.4-8.2) Albumin 1.2 G/DL (3.4-5.0) L Globulin 5.5 g/dL Albumin/Globulin Ratio 0.2 (1.0-2.7) L Plan Problems: (1) Abscess of left leg Assessment & Plan: large abscess in left distal lateral leg down to muscle and tendon. large area of fluctuance. with patients consent incision and drainage was performed at bedside on 04/23/2017. 50-75cc of pus evacuated and sent for micro. wound cleaned and dressings applied. afebrile, HD stable, leukocytosis wound improving. edema improving. MRI Impression: Positive for osteomyelitis of the distal fibula, with evidence of bony destruction More subtle marrow changes as described in the talus and calcaneus, also suspicious for osteomyelitis Evidence of soft tissue cellulitis both laterally and medially. No drainable abscess Abnormal peroneus longus tendon, may indicate inflammation or infection. Possible damage to the distal peroneus brevis tendon wound cleaned. slowly improving. packing and dressings reapplied. Febrile, leukocytosis worse, wound stable. Microbiology reviewed. -cont Abx. as per ID -dressings and packing TID. please ensure to pack wound and not just cover wound with dressings -will likely need wound care for some time. May even progress to amputation which patient is aware of. thank you for this consult. will follow with recs. Sandro Ramirez Apr 29, 2017 13:20
--- NOTE | 2017-04-29 15:30 | Nephrology Progress Note ---
Assessment/Plan Problem List: (1) CKD (chronic kidney disease) (2) Diabetic nephropathy (3) Anemia in chronic kidney disease Assessment Renal Assessment: Renal failure- ? Diabetic nephropathy , CKD cr down to 2 Anemia HypoAlbuminemia r/o Nephrotic State Other: rising WBCs Sepsis due to L Leg cellulitis/abscess c/w bacteremia- r/o Strep necrotizing infection- rising WBCs Fever/leukocytosis Dm2 HTN hx of R transmetatarsal amputation reported PNC allergy- Plan Plan: Per ID 24 H urine protein over 3 grams K supplement Anemia li avoid nephrotoxics per orders Subjective ROS Limited/Unobtainable: No Constitutional: Reports: malaise Objective Objective Last 24 Hour Vital Signs Date Time Temp Pulse Resp B/P (MAP) Pulse Ox O2 Delivery O2 Flow Rate FiO2 04/29/17 12:00 99.7 85 18 118/69 100 Room Air 99.7 04/29/17 08:00 97.9 94 18 128/78 100 Room Air 97.9 04/29/17 04:00 98.4 87 18 128/68 100 Room Air 98.4 04/29/17 00:00 99.1 88 18 123/62 98 Room Air 99.1 04/28/17 20:00 101.5 90 18 121/64 98 Room Air 101.5 04/28/17 16:00 97.8 97 20 124/73 98 97.8 Intake and Output 04/28/17 04/29/17 19:00 07:00 Intake Total 250 ml Output Total 400 ml Balance 250 ml -400 ml Intake Oral 250 ml Output Urine Total 400 ml # Voids 2 Laboratory Tests 04/29/17 06:25: White Blood Count 23.7*H, Red Blood Count 3.07L, Hemoglobin 8.3L, Hematocrit 26.2L, Mean Corpuscular Volume 85, Mean Corpuscular Hemoglobin 27.2, Mean Corpuscular Hemoglobin Concent 31.8L, Red Cell Distribution Width 13.6, Platelet Count 228, Mean Platelet Volume 8.1, Neutrophils (%) (Auto) , Lymphocytes (%) (Auto) , Monocytes (%) (Auto) , Eosinophils (%) (Auto) , Basophils (%) (Auto) , Differential Total Cells Counted 100, Neutrophils % ( Manual) 85H, Lymphocytes % (Manual) 4L, Monocytes % (Manual) 9, Eosinophils % ( Manual) 1, Basophils % (Manual) 0, Band Neutrophils 1, Platelet Estimate Adequate, Platelet Morphology Normal, Hypochromasia 1+, Erythrocyte Sedimentation Rate 128H, Sodium Level 136, Potassium Level 4.4, Chloride Level 104, Carbon Dioxide Level 23, Anion Gap 9, Blood Urea Nitrogen 20H, Creatinine 1.9H, Estimat Glomerular Filtration Rate 33.6, Glucose Level 63L, Calcium Level 8.7, Phosphorus Level 3.2, Magnesium Level 2.1, Total Bilirubin 0.3, Aspartate Amino Transf (AST/SGOT) 11L, Alanine Aminotransferase (ALT/SGPT) < 6L, Alkaline Phosphatase 72, Total Protein 6.7, Albumin 1.2L, Globulin 5.5, Albumin/Globulin Ratio 0.2L Height (Feet): 5 Height (Inches): 4.00 Weight (Pounds): 232 Objective no change IBETH ROSAS 20, 2018 15:30
[2017-04-29 16:00] VITALS: BP 131/63
--- NOTE | 2017-04-29 16:35 | Pulmonology Progress Note ---
Assessment/Plan Problems: (1) Bacteremia (2) Fungemia (3) Cellulitis, leg (4) Abscess of left leg (5) Diabetes mellitus Assessment/Plan wbc rising imprivng iv abx, On micafungin now sliding sclae wound care s/p drainage of the abscess + osteomyelitis needs a few weeks of IV abx PICC line in placed dc to care home with iv abx when OK with ID Subjective ROS Limited/Unobtainable: No Allergies: Coded Allergies: PENICILLINS (Verified Allergy, Severe, SWOLLEN BODY, 04/23/17) Per Daughter, patient has tolerated Amoxicillin Tolerated Ceftriaxone 04/22/17 Objective Last 24 Hour Vital Signs Date Time Temp Pulse Resp B/P (MAP) Pulse Ox O2 Delivery O2 Flow Rate FiO2 04/29/17 16:00 99.5 86 19 131/63 96 99.5 04/29/17 12:00 99.7 85 18 118/69 100 Room Air 99.7 04/29/17 08:00 97.9 94 18 128/78 100 Room Air 97.9 04/29/17 04:00 98.4 87 18 128/68 100 Room Air 98.4 04/29/17 00:00 99.1 88 18 123/62 98 Room Air 99.1 04/28/17 20:00 101.5 90 18 121/64 98 Room Air 101.5 Intake and Output 04/28/17 04/29/17 19:00 07:00 Intake Total 250 ml Output Total 400 ml Balance 250 ml -400 ml Intake Oral 250 ml Output Urine Total 400 ml # Voids 2 Objective General Appearance: cachectic HEENT: normocephalic, atraumatic, anicteric Respiratory/Chest: chest wall non-tender, Breasts: no masses Cardiovascular: normal peripheral pulses Abdomen: normal bowel sounds Genitourinary: normal external genitalia Microbiology Date/Time Source Procedure Growth Status 04/27/17 11:20 Blood Blood Culture - Preliminary NO GROWTH AFTER 24 HOURS Resulted 04/27/17 04:00 Blood Blood Culture - Preliminary Resulted Laboratory Tests 04/29/17 06:25: White Blood Count 23.7*H, Red Blood Count 3.07L, Hemoglobin 8.3L, Hematocrit 26.2L, Mean Corpuscular Volume 85, Mean Corpuscular Hemoglobin 27.2, Mean Corpuscular Hemoglobin Concent 31.8L, Red Cell Distribution Width 13.6, Platelet Count 228, Mean Platelet Volume 8.1, Neutrophils (%) (Auto) , Lymphocytes (%) (Auto) , Monocytes (%) (Auto) , Eosinophils (%) (Auto) , Basophils (%) (Auto) , Differential Total Cells Counted 100, Neutrophils % ( Manual) 85H, Lymphocytes % (Manual) 4L, Monocytes % (Manual) 9, Eosinophils % ( Manual) 1, Basophils % (Manual) 0, Band Neutrophils 1, Platelet Estimate Adequate, Platelet Morphology Normal, Hypochromasia 1+, Erythrocyte Sedimentation Rate 128H, Sodium Level 136, Potassium Level 4.4, Chloride Level 104, Carbon Dioxide Level 23, Anion Gap 9, Blood Urea Nitrogen 20H, Creatinine 1.9H, Estimat Glomerular Filtration Rate 33.6, Glucose Level 63L, Calcium Level 8.7, Phosphorus Level 3.2, Magnesium Level 2.1, Total Bilirubin 0.3, Aspartate Amino Transf (AST/SGOT) 11L, Alanine Aminotransferase (ALT/SGPT) < 6L, Alkaline Phosphatase 72, Total Protein 6.7, Albumin 1.2L, Globulin 5.5, Albumin/Globulin Ratio 0.2L Current Medications Medications (Trade) Dose Ordered Sig/Artemio Route PRN Reason Start Time Stop Time Status Last Admin Dose Admin Acetaminophen (Tylenol) 650 mg Q4H PRN ORAL fever (temp>100.5F) 04/21/17 18:15 05/21/17 18:14 04/24/17 16:47 Ceftriaxone Sodium 2 gm/ Sodium Chloride 55 ml @ 110 mls/hr Q24H IVPB 04/22/17 20:00 04/29/17 19:59 04/28/17 20:57 Chlorhexidine Gluconate (Nasreen-Hex 2%) 1 applic DAILY@2000 TOPIC 04/25/17 20:00 05/25/17 19:59 04/28/17 20:57 Dextrose (Dextrose 50%) STAT PRN IV Hypoglycemia 04/21/17 18:15 05/21/17 18:14 Heparin Sodium (Porcine) (Heparin 5000 units/ml) 5,000 units EVERY 12 HOURS SUBQ 04/21/17 21:00 05/21/17 20:59 04/29/17 09:11 Insulin Aspart (NovoLOG) BEFORE MEALS AND HS SUBQ 04/21/17 21:00 05/21/17 20:59 04/29/17 12:51 Insulin Detemir (Levemir) 20 units Q12HR SUBQ 04/29/17 09:00 05/29/17 08:59 04/29/17 09:09 Lansoprazole (Prevacid) 30 mg DAILY ORAL 04/23/17 13:00 05/23/17 12:59 04/29/17 09:05 Metronidazole (Flagyl) 500 mg Q8HR ORAL 04/23/17 14:00 04/30/17 13:59 04/29/17 12:50 Micafungin Sodium 100 mg/Sodium Chloride 110 ml @ 110 mls/hr Q24H IVPB 04/26/17 17:00 05/03/17 16:59 04/28/17 16:53 Nateglinide (Starlix) 60 mg TIAC ORAL 04/28/17 11:30 05/28/17 11:29 04/29/17 12:50 Nitroglycerin (Ntg) 0.4 mg Q5M PRN SL Prn Chest Pain 04/21/17 18:15 05/21/17 18:14 Ondansetron HCl (Zofran) 4 mg Q6H PRN IVP Nausea & Vomiting 04/21/17 18:15 05/21/17 18:14 Polyethylene Glycol (Miralax) 17 gm DAILYPRN PRN ORAL Constipation 04/21/17 18:15 05/21/17 18:14 Potassium Chloride (K-Dur) 40 meq DAILY ORAL 04/25/17 13:00 05/25/17 12:59 04/29/17 09:05 Vancomycin HCl (Vanco rx to dose) 1 ea DAILY PRN MISC Per rx protocol 04/24/17 16:00 05/24/17 15:59 Vancomycin HCl 1 gm/Dextrose 275 ml @ 183.708 mls/hr Q24H IVPB 04/26/17 06:00 05/01/17 05:59 04/29/17 06:14 Ruby Richmond MD Apr 29, 2017 16:35
[2017-04-29] MEDS: Micafungin 100 MG in NS 110 ML IVPB SCH (17:19)
[2017-04-29 20:00] VITALS: BP 135/76
[2017-04-29] MEDS: Dyna-Hex 2% Top Sol 2oz TOPIC SCH (20:08)
--- NOTE | 2017-04-29 20:57 | General Progress Note ---
Assessment/Plan Assessment/Plan adjustment d/o grief mdd -no meds at this time -provided st/ro Subjective Date patient seen: Apr 29, 2017 Neurologic/Psychiatric: Reports: anxiety, depressed, emotional problems Allergies: Coded Allergies: PENICILLINS (Verified Allergy, Severe, SWOLLEN BODY, 04/23/17) Per Daughter, patient has tolerated Amoxicillin Tolerated Ceftriaxone 04/22/17 Objective Last 24 Hour Vital Signs Date Time Temp Pulse Resp B/P (MAP) Pulse Ox O2 Delivery O2 Flow Rate FiO2 04/29/17 16:00 99.5 86 19 131/63 96 99.5 04/29/17 12:00 99.7 85 18 118/69 100 Room Air 99.7 04/29/17 08:00 97.9 94 18 128/78 100 Room Air 97.9 04/29/17 04:00 98.4 87 18 128/68 100 Room Air 98.4 04/29/17 00:00 99.1 88 18 123/62 98 Room Air 99.1 Intake and Output 04/28/17 04/29/17 19:00 07:00 Intake Total 250 ml Output Total 400 ml Balance 250 ml -400 ml Intake Oral 250 ml Output Urine Total 400 ml # Voids 2 Laboratory Tests 04/29/17 06:25: White Blood Count 23.7*H, Red Blood Count 3.07L, Hemoglobin 8.3L, Hematocrit 26.2L, Mean Corpuscular Volume 85, Mean Corpuscular Hemoglobin 27.2, Mean Corpuscular Hemoglobin Concent 31.8L, Red Cell Distribution Width 13.6, Platelet Count 228, Mean Platelet Volume 8.1, Neutrophils (%) (Auto) , Lymphocytes (%) (Auto) , Monocytes (%) (Auto) , Eosinophils (%) (Auto) , Basophils (%) (Auto) , Differential Total Cells Counted 100, Neutrophils % ( Manual) 85H, Lymphocytes % (Manual) 4L, Monocytes % (Manual) 9, Eosinophils % ( Manual) 1, Basophils % (Manual) 0, Band Neutrophils 1, Platelet Estimate Adequate, Platelet Morphology Normal, Hypochromasia 1+, Erythrocyte Sedimentation Rate 128H, Sodium Level 136, Potassium Level 4.4, Chloride Level 104, Carbon Dioxide Level 23, Anion Gap 9, Blood Urea Nitrogen 20H, Creatinine 1.9H, Estimat Glomerular Filtration Rate 33.6, Glucose Level 63L, Calcium Level 8.7, Phosphorus Level 3.2, Magnesium Level 2.1, Total Bilirubin 0.3, Aspartate Amino Transf (AST/SGOT) 11L, Alanine Aminotransferase (ALT/SGPT) < 6L, Alkaline Phosphatase 72, Total Protein 6.7, Albumin 1.2L, Globulin 5.5, Albumin/Globulin Ratio 0.2L Height (Feet): 5 Height (Inches): 4.00 Weight (Pounds): 232 General Appearance: no apparent distress, alert Neurologic: oriented x 3, depressed affect Remington Kimbrough M.D. Apr 29, 2017 20:56
[2017-04-30] VITALS: BP 138/72
[2017-04-30 04:27] VITALS: BP 135/79
[2017-04-30] MEDS: Nateglinide 60mg tab ORAL SCH ×3 (05:35→17:46)
[2017-04-30] MEDS: NovoLOG Insulin Flexpen SUBQ SCH ×4 (05:35→21:16)
[2017-04-30] MEDS: metroNIDAZOLE 500mg tab ORAL SCH (05:35)
[2017-04-30] MEDS: Vancomycin 1gm in D5W 275ml IVPB SCH (05:57)
--- NOTE | 2017-04-30 07:15 | General Progress Note ---
Assessment/Plan Problem List: (1) Cellulitis, leg ICD Codes: L03.119 - Cellulitis of unspecified part of limb SNOMED: 432971259 (2) Diabetes mellitus ICD Codes: E11.9 - Type 2 diabetes mellitus without complications SNOMED: 22269154 (3) CKD (chronic kidney disease) ICD Codes: N18.9 - Chronic kidney disease, unspecified SNOMED: 092665948 (4) Diabetic nephropathy ICD Codes: E11.21 - Type 2 diabetes mellitus with diabetic nephropathy SNOMED: 06300125, 169261179 (5) Anemia in chronic kidney disease ICD Codes: N18.9 - Chronic kidney disease, unspecified; D63.1 - Anemia in chronic kidney disease SNOMED: 836962853, [id number] Assessment/Plan reduce Levemir to 15 units bid continue Starlix 60 mg ac tid continue NISS Subjective Allergies: Coded Allergies: PENICILLINS (Verified Allergy, Severe, SWOLLEN BODY, 04/23/17) Per Daughter, patient has tolerated Amoxicillin Tolerated Ceftriaxone 04/22/17 All Systems: reviewed and negative except above Subjective events noted interval notes reviewed BG values stable refused Levemir last night NPO for CT Objective Last 24 Hour Vital Signs Date Time Temp Pulse Resp B/P (MAP) Pulse Ox O2 Delivery O2 Flow Rate FiO2 04/30/17 04:27 100.3 77 19 135/79 97 100.3 04/30/17 00:00 100.1 87 21 138/72 97 100.1 04/29/17 20:00 100.5 86 20 135/76 98 100.5 04/29/17 16:00 99.5 86 19 131/63 96 99.5 04/29/17 12:00 99.7 85 18 118/69 100 Room Air 99.7 04/29/17 08:00 97.9 94 18 128/78 100 Room Air 97.9 Intake and Output 04/29/17 04/30/17 19:00 07:00 Intake Total 770 ml Output Total 400 ml Balance 370 ml Intake Oral 770 ml Output Urine Total 400 ml # Voids 2 3 Height (Feet): 5 Height (Inches): 4.00 Weight (Pounds): 232 Objective Current Medications Medications (Trade) Dose Ordered Sig/Artemio Route PRN Reason Start Time Stop Time Status Last Admin Dose Admin Acetaminophen (Tylenol) 650 mg Q4H PRN ORAL fever (temp>100.5F) 04/21/17 18:15 05/21/17 18:14 04/24/17 16:47 Chlorhexidine Gluconate (Nasreen-Hex 2%) 1 applic DAILY@2000 TOPIC 04/25/17 20:00 05/25/17 19:59 04/29/17 20:08 Dextrose (Dextrose 50%) STAT PRN IV Hypoglycemia 04/21/17 18:15 05/21/17 18:14 Heparin Sodium (Porcine) (Heparin 5000 units/ml) 5,000 units EVERY 12 HOURS SUBQ 04/21/17 21:00 05/21/17 20:59 04/29/17 20:09 Insulin Aspart (NovoLOG) BEFORE MEALS AND HS SUBQ 04/21/17 21:00 05/21/17 20:59 04/29/17 17:21 Insulin Detemir (Levemir) 20 units Q12HR SUBQ 04/29/17 09:00 05/29/17 08:59 04/29/17 09:09 Lansoprazole (Prevacid) 30 mg DAILY ORAL 04/23/17 13:00 05/23/17 12:59 04/29/17 09:05 Metronidazole (Flagyl) 500 mg Q8HR ORAL 04/23/17 14:00 04/30/17 13:59 04/29/17 20:09 Micafungin Sodium 100 mg/Sodium Chloride 110 ml @ 110 mls/hr Q24H IVPB 04/26/17 17:00 05/03/17 16:59 04/29/17 17:19 Nateglinide (Starlix) 60 mg TIAC ORAL 04/28/17 11:30 05/28/17 11:29 04/29/17 17:18 Nitroglycerin (Ntg) 0.4 mg Q5M PRN SL Prn Chest Pain 04/21/17 18:15 05/21/17 18:14 Ondansetron HCl (Zofran) 4 mg Q6H PRN IVP Nausea & Vomiting 04/21/17 18:15 05/21/17 18:14 Polyethylene Glycol (Miralax) 17 gm DAILYPRN PRN ORAL Constipation 04/21/17 18:15 05/21/17 18:14 Potassium Chloride (K-Dur) 40 meq DAILY ORAL 04/25/17 13:00 05/25/17 12:59 04/29/17 09:05 Vancomycin HCl (Vanco rx to dose) 1 ea DAILY PRN MISC Per rx protocol 04/24/17 16:00 05/24/17 15:59 Vancomycin HCl 1 gm/Dextrose 275 ml @ 183.708 mls/hr Q24H IVPB 04/26/17 06:00 05/01/17 05:59 04/30/17 05:57 Item Value Date Time Bedside Blood Glucose 167 mg/dl H 04/30/17 0534 Bedside Blood Glucose 188 mg/dl H 04/29/17 2100 Bedside Blood Glucose 160 mg/dl H 04/29/17 1721 Bedside Blood Glucose 124 mg/dl H 04/29/17 1251 Bedside Blood Glucose 83 mg/dl 04/29/17 0909 Bedside Blood Glucose 83 mg/dl 04/29/17 0630 ANSELMO TOMLIN 21, 2018 07:15
[2017-04-30 07:53] LABS: HEMATOCRIT 24.1 % (37.0-47.0); HEMOGLOBIN 7.7 G/DL (12.0-16.0); MEAN CORPUSCULAR VOLUME 86 FL (80-99); PLATELET COUNT 220 K/UL (150-450); RED BLOOD COUNT 2.81 M/UL (4.20-5.40); RED CELL DISTRIBUTION WIDTH 13.5 % (11.6-14.8); WHITE BLOOD COUNT 18.3 K/UL (4.8-10.8)
[2017-04-30 08:00] VITALS: BP 131/63
[2017-04-30] MEDS: Heparin 5000 units/ml inj SUBQ SCH ×2 (09:04→21:19)
[2017-04-30 09:57] LABS: ALANINE AMINOTRANSFERASE < 6 U/L (12-78); ALBUMIN 0.7 G/DL (3.4-5.0); ALBUMIN/GLOBULIN RATIO 0.2 (1.0-2.7); ALKALINE PHOSPHATASE 54 U/L (46-116); ANION GAP 10 mmol/L (5-15); ASPARTATE AMINO TRANSFERASE 12 U/L (15-37); BILIRUBIN,TOTAL 0.2 MG/DL (0.2-1.0); BLOOD UREA NITROGEN 13 mg/dL (7-18); CARBON DIOXIDE 16 MMOL/L (21-32); CHLORIDE 117 MMOL/L (98-107); CREATININE 1.2 MG/DL (0.55-1.30); POTASSIUM 3.4 MMOL/L (3.5-5.1); SODIUM 143 MMOL/L (136-145)
[2017-04-30 10:24] LABS: CALCIUM 6.5 MG/DL (8.5-10.1)
[2017-04-30] MEDS: Levemir Flexpen SUBQ SCH ×2 (10:43→21:00)
--- NOTE | 2017-04-30 11:02 | Nephrology Progress Note ---
Assessment/Plan Problem List: (1) CKD (chronic kidney disease) (2) Diabetic nephropathy (3) Anemia in chronic kidney disease Assessment Renal Assessment: Renal failure- ? Diabetic nephropathy , CKD cr down to wnl Anemia HypoAlbuminemia r/o Nephrotic State Other: rising WBCs Sepsis due to L Leg cellulitis/abscess c/w bacteremia- r/o Strep necrotizing infection- rising WBCs Fever/leukocytosis Dm2 HTN hx of R transmetatarsal amputation reported PNC allergy- Plan Plan: Po K supplement Per ID 24 H urine protein over 3 grams K supplement Anemia li avoid nephrotoxics per orders Subjective ROS Limited/Unobtainable: No Constitutional: Reports: malaise Objective Objective Last 24 Hour Vital Signs Date Time Temp Pulse Resp B/P (MAP) Pulse Ox O2 Delivery O2 Flow Rate FiO2 04/30/17 04:27 100.3 77 19 135/79 97 100.3 04/30/17 00:00 100.1 87 21 138/72 97 100.1 04/29/17 20:00 100.5 86 20 135/76 98 100.5 04/29/17 16:00 99.5 86 19 131/63 96 99.5 04/29/17 12:00 99.7 85 18 118/69 100 Room Air 99.7 Intake and Output 04/29/17 04/30/17 18:59 06:59 Intake Total 770 ml Output Total 400 ml Balance 370 ml Intake Oral 770 ml Output Urine Total 400 ml # Voids 2 3 Laboratory Tests 04/30/17 04:00: White Blood Count 18.3H, Red Blood Count 2.81L, Hemoglobin 7.7L, Hematocrit 24.1L, Mean Corpuscular Volume 86, Mean Corpuscular Hemoglobin 27.5, Mean Corpuscular Hemoglobin Concent 32.1, Red Cell Distribution Width 13.5, Platelet Count 220, Mean Platelet Volume 8.6, Neutrophils (%) (Auto) , Lymphocytes (%) ( Auto) , Monocytes (%) (Auto) , Eosinophils (%) (Auto) , Basophils (%) (Auto) , Differential Total Cells Counted 100, Neutrophils % (Manual) 80H, Lymphocytes % (Manual) 15L, Monocytes % (Manual) 5, Eosinophils % (Manual) 0, Basophils % ( Manual) 0, Band Neutrophils 0, Platelet Estimate Adequate, Platelet Morphology Normal, Hypochromasia 1+, Sodium Level 143, Potassium Level 3.4L, Chloride Level 117H, Carbon Dioxide Level 16L, Anion Gap 10, Blood Urea Nitrogen 13, Creatinine 1.2, Estimat Glomerular Filtration Rate 57.0, Glucose Level 98, Calcium Level 6.5#L, Total Bilirubin 0.2, Aspartate Amino Transf (AST/SGOT) 12L , Alanine Aminotransferase (ALT/SGPT) < 6L, Alkaline Phosphatase 54, C-Reactive Protein, Quantitative 14.7H, Total Protein 4.3#L, Albumin 0.7L, Globulin 3.6, Albumin/Globulin Ratio 0.2L Height (Feet): 5 Height (Inches): 4.00 Weight (Pounds): 232 General Appearance: no apparent distress Objective no change IBETH ROSAS Apr 30, 2017 11:02
--- NOTE | 2017-04-30 11:10 | General Progress Note ---
Assessment/Plan Status: progressing Assessment/Plan adjustment d/o grief mdd -no meds at this time -provided st/ro Subjective Date patient seen: Apr 30, 2017 Neurologic/Psychiatric: Reports: anxiety, depressed Allergies: Coded Allergies: PENICILLINS (Verified Allergy, Severe, SWOLLEN BODY, 04/23/17) Per Daughter, patient has tolerated Amoxicillin Tolerated Ceftriaxone 04/22/17 Subjective the pt is depressed and has irritability. the pt stated "as long as I am not seeing the people I am ok with that." Objective Last 24 Hour Vital Signs Date Time Temp Pulse Resp B/P (MAP) Pulse Ox O2 Delivery O2 Flow Rate FiO2 04/30/17 04:27 100.3 77 19 135/79 97 100.3 04/30/17 00:00 100.1 87 21 138/72 97 100.1 04/29/17 20:00 100.5 86 20 135/76 98 100.5 04/29/17 16:00 99.5 86 19 131/63 96 99.5 04/29/17 12:00 99.7 85 18 118/69 100 Room Air 99.7 Intake and Output 04/29/17 04/30/17 19:00 07:00 Intake Total 770 ml Output Total 400 ml Balance 370 ml Intake Oral 770 ml Output Urine Total 400 ml # Voids 2 3 Laboratory Tests 04/30/17 04:00: White Blood Count 18.3H, Red Blood Count 2.81L, Hemoglobin 7.7L, Hematocrit 24.1L, Mean Corpuscular Volume 86, Mean Corpuscular Hemoglobin 27.5, Mean Corpuscular Hemoglobin Concent 32.1, Red Cell Distribution Width 13.5, Platelet Count 220, Mean Platelet Volume 8.6, Neutrophils (%) (Auto) , Lymphocytes (%) ( Auto) , Monocytes (%) (Auto) , Eosinophils (%) (Auto) , Basophils (%) (Auto) , Differential Total Cells Counted 100, Neutrophils % (Manual) 80H, Lymphocytes % (Manual) 15L, Monocytes % (Manual) 5, Eosinophils % (Manual) 0, Basophils % ( Manual) 0, Band Neutrophils 0, Platelet Estimate Adequate, Platelet Morphology Normal, Hypochromasia 1+, Sodium Level 143, Potassium Level 3.4L, Chloride Level 117H, Carbon Dioxide Level 16L, Anion Gap 10, Blood Urea Nitrogen 13, Creatinine 1.2, Estimat Glomerular Filtration Rate 57.0, Glucose Level 98, Calcium Level 6.5#L, Total Bilirubin 0.2, Aspartate Amino Transf (AST/SGOT) 12L , Alanine Aminotransferase (ALT/SGPT) < 6L, Alkaline Phosphatase 54, C-Reactive Protein, Quantitative 14.7H, Total Protein 4.3#L, Albumin 0.7L, Globulin 3.6, Albumin/Globulin Ratio 0.2L Height (Feet): 5 Height (Inches): 4.00 Weight (Pounds): 232 General Appearance: WD/WN, no apparent distress, alert Neurologic: oriented x 3, depressed affect Remington Kimbrough M.D. Apr 30, 2017 11:10
--- NOTE | 2017-04-30 12:14 | General Surgery Progress Note ---
General Surgery-Progress Note Subjective Symptoms: worse, improved Additional Comments states that she feels better. having persistent low grade fevers. states she has had low grade fevers for long time even during prior hospitalizations. no n /v/f/c. tolerating diet. Objective Last 24 Hour Vital Signs Date Time Temp Pulse Resp B/P (MAP) Pulse Ox O2 Delivery O2 Flow Rate FiO2 04/30/17 08:00 99.5 86 18 131/63 96 99.5 04/30/17 04:27 100.3 77 19 135/79 97 100.3 04/30/17 00:00 100.1 87 21 138/72 97 100.1 04/29/17 20:00 100.5 86 20 135/76 98 100.5 04/29/17 16:00 99.5 86 19 131/63 96 99.5 I&O Intake and Output 04/29/17 04/30/17 19:00 07:00 Intake Total 770 ml Output Total 400 ml Balance 370 ml Intake Oral 770 ml Output Urine Total 400 ml # Voids 2 3 Dressing: saturated Wound: clean Drains: none Cardiovascular: RSR Respiratory: clear Abdomen: soft, flat, non-tender, present bowel sounds Extremities: edema, tenderness, no cyanosis Laboratory Tests Test 04/30/17 04:00 White Blood Count 18.3 K/UL (4.8-10.8) H Red Blood Count 2.81 M/UL (4.20-5.40) L Hemoglobin 7.7 G/DL (12.0-16.0) L Hematocrit 24.1 % (37.0-47.0) L Mean Corpuscular Volume 86 FL (80-99) Mean Corpuscular Hemoglobin 27.5 PG (27.0-31.0) Mean Corpuscular Hemoglobin Concent 32.1 G/DL (32.0-36.0) Red Cell Distribution Width 13.5 % (11.6-14.8) Platelet Count 220 K/UL (150-450) Mean Platelet Volume 8.6 FL (6.5-10.1) Neutrophils (%) (Auto) % (45.0-75.0) Lymphocytes (%) (Auto) % (20.0-45.0) Monocytes (%) (Auto) % (1.0-10.0) Eosinophils (%) (Auto) % (0.0-3.0) Basophils (%) (Auto) % (0.0-2.0) Differential Total Cells Counted 100 Neutrophils % (Manual) 80 % (45-75) H Lymphocytes % (Manual) 15 % (20-45) L Monocytes % (Manual) 5 % (1-10) Eosinophils % (Manual) 0 % (0-3) Basophils % (Manual) 0 % (0-2) Band Neutrophils 0 % (0-8) Platelet Estimate Adequate Platelet Morphology Normal Hypochromasia 1+ Sodium Level 143 MMOL/L (136-145) Potassium Level 3.4 MMOL/L (3.5-5.1) L Chloride Level 117 MMOL/L (98-107) H Carbon Dioxide Level 16 MMOL/L (21-32) L Anion Gap 10 mmol/L (5-15) Blood Urea Nitrogen 13 mg/dL (7-18) Creatinine 1.2 MG/DL (0.55-1.30) Estimat Glomerular Filtration Rate 57.0 mL/min (>60) Glucose Level 98 MG/DL (74-106) Calcium Level 6.5 MG/DL (8.5-10.1) #L Total Bilirubin 0.2 MG/DL (0.2-1.0) Aspartate Amino Transf (AST/SGOT) 12 U/L (15-37) L Alanine Aminotransferase (ALT/SGPT) < 6 U/L (12-78) L Alkaline Phosphatase 54 U/L (46-116) C-Reactive Protein, Quantitative 14.7 mg/dL (0.00-0.90) H Total Protein 4.3 G/DL (6.4-8.2) #L Albumin 0.7 G/DL (3.4-5.0) L Globulin 3.6 g/dL Albumin/Globulin Ratio 0.2 (1.0-2.7) L Plan Problems: (1) Abscess of left leg Assessment & Plan: large abscess in left distal lateral leg. with patients consent, incision and drainage was performed at bedside on 04/23/2017 ( 50-75cc of pus evacuated and sent for micro) wound improving. edema improving. MRI Impression: Positive for osteomyelitis of the distal fibula, with evidence of bony destruction More subtle marrow changes as described in the talus and calcaneus, also suspicious for osteomyelitis Evidence of soft tissue cellulitis both laterally and medially. No drainable abscess Abnormal peroneus longus tendon, may indicate inflammation or infection. Possible damage to the distal peroneus brevis tendon wound cleaned. slowly improving. packing and dressings reapplied. Febrile, leukocytosis, wound stable. Microbiology reviewed. bacteremia -cont Abx. as per ID -dressings and packing TID. please ensure to pack wound and not just cover wound with dressings -no further debridement or drainage needed at this time. -will likely need wound care and antibiotics for a few weeks. thank you for this consult. Sandro Ramirez Apr 30, 2017 12:14
[2017-04-30] MEDS: cefTRIAXone 2 GM in NS 55 ML IVPB SCH (12:24)
--- NOTE | 2017-04-30 13:02 | Diagnostic Imaging Report ---
Clinical Indication: Chest pain, bacteremia, anemia, left leg abscess, diabetes Technique: Spiral acquisitions obtained through the chest. No IV contrast utilized, per referring physician request and due to history of renal insufficiency. Multiplanar reconstructions generated. Total dose length product 1.1 mGycm. CTDIvol(s) 28.19,19.75 mGy, inclusive of abdomen and pelvis CT performed at the same time. Dose reduction achieved using automated exposure control Comparison: none Findings: There is a left arm PICC which terminates at the level of the mid superior vena cava. There is atelectatic change at both lung bases. There may be minimal consolidation. No effusions, congestion, masses, or nodules. The heart size is normal. There is minimal anterolateral pericardial thickening versus effusion. The esophagus contains ingested contrast. No mediastinal or hilar mass or adenopathy demonstrated. No axillary or chest wall mass or adenopathy. The bones are unremarkable except for minimal degenerative spondylosis changes. Impression: Bilateral basilar atelectasis, possible minimal consolidation No acute process otherwise Minimal anterolateral pericardial thickening versus fluid Degenerative spondylosis The CT scanner at [facility] is accredited by the [employer] and the scans are performed using protocols designed to limit radiation exposure to as low as reasonably achievable to attain images of sufficient resolution adequate for diagnostic evaluation.
--- NOTE | 2017-04-30 13:11 | Diagnostic Imaging Report ---
Indication: Abdominal pain Technique: Spiral acquisitions obtained through the abdomen and pelvis. Patient given oral contrast. No IV contrast utilized, due to renal insufficiency.. Multiplanar reconstructions were generated. Total dose length product 2021.1 mGycm. CTDIvol(s) 28.19,19.75 mGy, inclusive of abdomen and pelvis CT performed the same time. Dose reduction achieved using automated exposure control Comparison: Contrast abdomen and pelvis CT dated 05/02/2011 Findings: The appendix is normal. Moderate amount of retained stool is seen within the colon. No evidence of diverticulosis or diverticulitis. No small bowel distention or small bowel wall thickening. No free or loculated intraperitoneal air or fluid. There is mild diastasis of the rectus abdominis tendon. The distal esophagus, stomach, duodenum are unremarkable. Lack of IV contrast limits assessment of the solid organs. The gallbladder is unremarkable. The liver, bile ducts, pancreas, spleen, adrenals are unremarkable. There is bilateral perinephric fat stranding which is not evident previously. There is a stable 2 mm calculus within the right renal collecting system. Other calcifications in the renal sinuses are probably mostly if not exclusively arterial, although additional calyceal calculi are a possibility. There is mild fullness to the left renal collecting system but no trey hydronephrosis. No hydroureter or ureteral calculi. No retroperitoneal or mesenteric mass or adenopathy. The uterus is enlarged and heterogeneous, contains calcifications, consistent with fibroid changes. This appearance is similar to the previous study. No adnexal mass. No pelvic mass or adenopathy otherwise. Previously demonstrated right iliac chain lymphadenopathy has resolved. The bones are unremarkable. There is mild generalized edema of the subcutaneous fat. Impression: Edema of the subcutaneous fat, mild. Bilateral perinephric fat stranding, not definitely evident on prior 2012 exam. May indicate acute renal inflammation, chronic postinflammatory changes, or may be a manifestation of the more generalized edema. No acute process otherwise Fibroid uterus, also previously reported. Nonobstructive right renal calculus, also previously demonstrated. Other renal calcifications as described Previously demonstrated right iliac chain adenopathy is no longer evident The CT scanner at [facility] is accredited by the [employer] and the scans are performed using protocols designed to limit radiation exposure to as low as reasonably achievable to attain images of sufficient resolution adequate for diagnostic evaluation.
--- NOTE | 2017-04-30 15:43 | Infectious Diseases Prog Note ---
Assessment/Plan Assessment/Plan Sepsis , ongoing L Leg cellulitis., large abscess (polymicrobial), infected ankle wound and OM c/ w polymicrobial bacteremia- improving abscess/cellulitis after I+D, however persistent bacteremia -MRI L leg: Positive for osteomyelitis of the distal fibula, with evidence of bony destruction. More subtle marrow changes as described in the talus and calcaneus, also suspicious for osteomyelitis. Evidence of soft tissue cellulitis both laterally and medially. No drainable abscess. Abnormal peroneus longus tendon, may indicate inflammation or infection. Possible damage to the distal peroneus brevis tendon - s/p bedside I+D 04/23: large abscess in left distal lateral leg down to muscle and tendon. large area of fluctuance. 50-75cc of pus evacuated; wound cx +1 K.pna (grissom S), +4 E. fecalis (grissom S) -Xray R tibia/fibula/ankle: Evidence of multiple lateral soft tissue ulcers in the distal leg and ankle. Evidence of destructive change of the distal fibula. This is highly suspicious for acute osteomyelitis. No acute bony trauma -wound cx from purulent discharge 04/22 #1: +2 MRSA, <1+ E. aerogens (S Ceftriaxone), +4 GBS; #2 +2 MRSA (S tetracycline, bactrim, vanco), +4 E. aerogens (S Ceftriaxone), E fecalis (grissom S) -ESR 116, CRP 27.7> 04/26 >70; 04/30 14.7 Polymicrobial Gram positive bacteremia-> persistent Gram positive bacteremia -Bcx 04/21 2/4 + GBS, 2/4 CoNS, 1/4MRSA, Bcx 04/22 1/4 yeast; 04/25 Bcx NTD; Bcx 2/4 GPC clusters #1, #2 ; 04/28 BCx NTD -Echo:Limited (poor acoustic views)- no vegetations, no significant valve abnormalities -CT chest/abd/p wo: Edema of the subcutaneous fat, mild. Bilateral perinephric fat stranding, not definitely evident on prior 2012 exam. May indicate acute renal inflammation, chronic postinflammatory changes, or may be a manifestation of the more generalized edema. No acute process otherwise. Fibroid uterus, also previously reported. Nonobstructive right renal calculus, also previously demonstrated. Other renal calcifications as described. Previously demonstrated right iliac chain adenopathy is no longer evident. -Bilateral basilar atelectasis, possible minimal consolidation/No acute process otherwise Fungemia -Bcx 04/22 1 C. glabrata (sensi pending) Fever, ongoing leukocytosis- worsened, now slightly improved- r/o endocarditis, No occult abscess on CT was seen. -u/a neg, ucx nTD ?PNA -CXR: Right basilar atelectasis and possibly infiltrate -sp cx p 04/25 SP PICC Dm2 HTN hx of R transmetatarsal amputation reported PNC allergy- however tolerates Amoxicillin per daughter Plan: -Continue Ceftriaxone # 10 and switch IV Vancomycin #9 to IV Daptomycin 8mg/ kg qd (given persistent bacteremia and fevers), for polymicrobial (GBS, MRSA) L leg abscess, OM, bacteremia; duration for total of 42 days and Mycamine d# / 14 - 21 Continue PO Flagyl d# 8/-14 -04/23 SP IV Vancomycin #2 and Clindamycin #2 -04/22 SP IV Aztreonam #2 -Given persistent fevers, bacteremia and limited TTE, will need JOHN to evaluate for endocarditis -f/u repeat 2 sets Bcx 04/28 -Cdiff if diarrhea -f/u sp cx -f/u cx -monitor CBC/BMP, temperatures; Trend WBC and fever curve -wound care -weekly CBC, CMP, vanco through -not ready for discharge yet given persistent fevers and worsening Leukocytosis Discussed with RN, Dr Richmond and Dr Ramirez. Subjective Allergies: Coded Allergies: PENICILLINS (Verified Allergy, Severe, SWOLLEN BODY, 04/23/17) Per Daughter, patient has tolerated Amoxicillin Tolerated Ceftriaxone 04/22/17 Subjective Tm 100.5 leukocytosis improving repeat bcx 04/28 NTD Objective Vital Signs Last 24 Hour Vital Signs Date Time Temp Pulse Resp B/P (MAP) Pulse Ox O2 Delivery O2 Flow Rate FiO2 04/30/17 08:00 99.5 86 18 131/63 96 99.5 04/30/17 04:27 100.3 77 19 135/79 97 100.3 04/30/17 00:00 100.1 87 21 138/72 97 100.1 04/29/17 20:00 100.5 86 20 135/76 98 100.5 04/29/17 16:00 99.5 86 19 131/63 96 99.5 Height (Feet): 5 Height (Inches): 4.00 Weight (Pounds): 232 Objective General Appearance: WD/WN Lines, tubes and drains: peripheral HEENT: normocephalic, atraumatic Neck: non-tender, normal alignment Respiratory/Chest: chest wall non-tender, lungs clear Cardiovascular/Chest: normal peripheral pulses, normal rate Abdomen: normal bowel sounds, non tender Ext: R foot s/p metatarsal amputation- stump with no signs of infection L foot: dressings in place Microbiology Date/Time Source Procedure Growth Status 04/28/17 16:20 Blood Blood Culture - Preliminary NO GROWTH AFTER 24 HOURS Resulted 04/28/17 16:10 Blood Blood Culture - Preliminary NO GROWTH AFTER 24 HOURS Resulted Laboratory Tests Test 04/30/17 04:00 White Blood Count 18.3 K/UL (4.8-10.8) H Red Blood Count 2.81 M/UL (4.20-5.40) L Hemoglobin 7.7 G/DL (12.0-16.0) L Hematocrit 24.1 % (37.0-47.0) L Mean Corpuscular Volume 86 FL (80-99) Mean Corpuscular Hemoglobin 27.5 PG (27.0-31.0) Mean Corpuscular Hemoglobin Concent 32.1 G/DL (32.0-36.0) Red Cell Distribution Width 13.5 % (11.6-14.8) Platelet Count 220 K/UL (150-450) Mean Platelet Volume 8.6 FL (6.5-10.1) Neutrophils (%) (Auto) % (45.0-75.0) Lymphocytes (%) (Auto) % (20.0-45.0) Monocytes (%) (Auto) % (1.0-10.0) Eosinophils (%) (Auto) % (0.0-3.0) Basophils (%) (Auto) % (0.0-2.0) Differential Total Cells Counted 100 Neutrophils % (Manual) 80 % (45-75) H Lymphocytes % (Manual) 15 % (20-45) L Monocytes % (Manual) 5 % (1-10) Eosinophils % (Manual) 0 % (0-3) Basophils % (Manual) 0 % (0-2) Band Neutrophils 0 % (0-8) Platelet Estimate Adequate Platelet Morphology Normal Hypochromasia 1+ Sodium Level 143 MMOL/L (136-145) Potassium Level 3.4 MMOL/L (3.5-5.1) L Chloride Level 117 MMOL/L (98-107) H Carbon Dioxide Level 16 MMOL/L (21-32) L Anion Gap 10 mmol/L (5-15) Blood Urea Nitrogen 13 mg/dL (7-18) Creatinine 1.2 MG/DL (0.55-1.30) Estimat Glomerular Filtration Rate 57.0 mL/min (>60) Glucose Level 98 MG/DL (74-106) Calcium Level 6.5 MG/DL (8.5-10.1) #L Total Bilirubin 0.2 MG/DL (0.2-1.0) Aspartate Amino Transf (AST/SGOT) 12 U/L (15-37) L Alanine Aminotransferase (ALT/SGPT) < 6 U/L (12-78) L Alkaline Phosphatase 54 U/L (46-116) C-Reactive Protein, Quantitative 14.7 mg/dL (0.00-0.90) H Total Protein 4.3 G/DL (6.4-8.2) #L Albumin 0.7 G/DL (3.4-5.0) L Globulin 3.6 g/dL Albumin/Globulin Ratio 0.2 (1.0-2.7) L Current Medications Medications (Trade) Dose Ordered Sig/Artemio Route PRN Reason Start Time Stop Time Status Last Admin Dose Admin Acetaminophen (Tylenol) 650 mg Q4H PRN ORAL fever (temp>100.5F) 04/21/17 18:15 05/21/17 18:14 04/24/17 16:47 Ceftriaxone Sodium 2 gm/ Sodium Chloride 55 ml @ 110 mls/hr Q24H IVPB 04/30/17 12:00 06/09/17 11:59 04/30/17 12:24 Chlorhexidine Gluconate (Nasreen-Hex 2%) 1 applic DAILY@2000 TOPIC 04/25/17 20:00 05/25/17 19:59 04/29/17 20:08 Dextrose (Dextrose 50%) STAT PRN IV Hypoglycemia 04/21/17 18:15 05/21/17 18:14 Heparin Sodium (Porcine) (Heparin 5000 units/ml) 5,000 units EVERY 12 HOURS SUBQ 04/21/17 21:00 05/21/17 20:59 04/30/17 09:04 Insulin Aspart (NovoLOG) BEFORE MEALS AND HS SUBQ 04/21/17 21:00 05/21/17 20:59 04/29/17 17:21 Insulin Detemir (Levemir) 15 units Q12HR SUBQ 04/30/17 09:00 05/30/17 08:59 04/30/17 10:43 Lansoprazole (Prevacid) 30 mg DAILY ORAL 04/23/17 13:00 05/23/17 12:59 04/30/17 09:01 Micafungin Sodium 100 mg/Sodium Chloride 110 ml @ 110 mls/hr Q24H IVPB 04/26/17 17:00 05/03/17 16:59 04/29/17 17:19 Nateglinide (Starlix) 60 mg TIAC ORAL 04/28/17 11:30 05/28/17 11:29 04/30/17 12:24 Nitroglycerin (Ntg) 0.4 mg Q5M PRN SL Prn Chest Pain 04/21/17 18:15 05/21/17 18:14 Ondansetron HCl (Zofran) 4 mg Q6H PRN IVP Nausea & Vomiting 04/21/17 18:15 05/21/17 18:14 Polyethylene Glycol (Miralax) 17 gm DAILYPRN PRN ORAL Constipation 04/21/17 18:15 05/21/17 18:14 Potassium Chloride (K-Dur) 40 meq DAILY ORAL 04/30/17 12:00 05/30/17 11:59 04/30/17 12:24 Vancomycin HCl (Vanco rx to dose) 1 ea DAILY PRN MISC Per rx protocol 04/24/17 16:00 05/24/17 15:59 Vancomycin HCl 1 gm/Dextrose 275 ml @ 183.708 mls/hr Q24H IVPB 04/26/17 06:00 06/09/17 05:59 04/30/17 05:57 Faye Foy M.D. Apr 30, 2017 15:43
[2017-04-30 16:12] VITALS: BP 145/84
[2017-04-30] MEDS: Micafungin 100 MG in NS 110 ML IVPB SCH (17:00)
--- NOTE | 2017-04-30 19:08 | Cardiology Progress Note ---
Assessment/Plan Assessment/Plan [id number] pt see in cardaic consultaion at request of dr escudero today tami is sched to be performed by dr paz tomorrow will fu on results has fungemia and baceteremia Objective Last 24 Hour Vital Signs Date Time Temp Pulse Resp B/P (MAP) Pulse Ox O2 Delivery O2 Flow Rate FiO2 04/30/17 16:12 97.7 86 19 145/84 97 Room Air 97.7 04/30/17 08:00 99.5 86 18 131/63 96 99.5 04/30/17 04:27 100.3 77 19 135/79 97 100.3 04/30/17 00:00 100.1 87 21 138/72 97 100.1 04/29/17 20:00 100.5 86 20 135/76 98 100.5 Intake and Output 04/29/17 04/30/17 19:00 07:00 Intake Total 770 ml Output Total 400 ml Balance 370 ml Intake Oral 770 ml Output Urine Total 400 ml # Voids 2 3 Laboratory Tests Test 04/30/17 04:00 White Blood Count 18.3 K/UL (4.8-10.8) H Red Blood Count 2.81 M/UL (4.20-5.40) L Hemoglobin 7.7 G/DL (12.0-16.0) L Hematocrit 24.1 % (37.0-47.0) L Mean Corpuscular Volume 86 FL (80-99) Mean Corpuscular Hemoglobin 27.5 PG (27.0-31.0) Mean Corpuscular Hemoglobin Concent 32.1 G/DL (32.0-36.0) Red Cell Distribution Width 13.5 % (11.6-14.8) Platelet Count 220 K/UL (150-450) Mean Platelet Volume 8.6 FL (6.5-10.1) Neutrophils (%) (Auto) % (45.0-75.0) Lymphocytes (%) (Auto) % (20.0-45.0) Monocytes (%) (Auto) % (1.0-10.0) Eosinophils (%) (Auto) % (0.0-3.0) Basophils (%) (Auto) % (0.0-2.0) Differential Total Cells Counted 100 Neutrophils % (Manual) 80 % (45-75) H Lymphocytes % (Manual) 15 % (20-45) L Monocytes % (Manual) 5 % (1-10) Eosinophils % (Manual) 0 % (0-3) Basophils % (Manual) 0 % (0-2) Band Neutrophils 0 % (0-8) Platelet Estimate Adequate Platelet Morphology Normal Hypochromasia 1+ Sodium Level 143 MMOL/L (136-145) Potassium Level 3.4 MMOL/L (3.5-5.1) L Chloride Level 117 MMOL/L (98-107) H Carbon Dioxide Level 16 MMOL/L (21-32) L Anion Gap 10 mmol/L (5-15) Blood Urea Nitrogen 13 mg/dL (7-18) Creatinine 1.2 MG/DL (0.55-1.30) Estimat Glomerular Filtration Rate 57.0 mL/min (>60) Glucose Level 98 MG/DL (74-106) Calcium Level 6.5 MG/DL (8.5-10.1) #L Total Bilirubin 0.2 MG/DL (0.2-1.0) Aspartate Amino Transf (AST/SGOT) 12 U/L (15-37) L Alanine Aminotransferase (ALT/SGPT) < 6 U/L (12-78) L Alkaline Phosphatase 54 U/L (46-116) C-Reactive Protein, Quantitative 14.7 mg/dL (0.00-0.90) H Total Protein 4.3 G/DL (6.4-8.2) #L Albumin 0.7 G/DL (3.4-5.0) L Globulin 3.6 g/dL Albumin/Globulin Ratio 0.2 (1.0-2.7) L Microbiology Date/Time Source Procedure Growth Status 04/28/17 16:20 Blood Blood Culture - Preliminary NO GROWTH AFTER 24 HOURS Resulted 04/28/17 16:10 Blood Blood Culture - Preliminary NO GROWTH AFTER 24 HOURS Resulted ELEAZAR JOSÉ Apr 30, 2017 19:08
[2017-04-30 20:00] VITALS: BP 144/78
[2017-04-30] MEDS: Dyna-Hex 2% Top Sol 2oz TOPIC SCH (21:13)
--- NOTE | 2017-04-30 21:56 | Pulmonology Progress Note ---
Assessment/Plan Problems: (1) Sepsis (2) Bacteremia (3) Fungemia (4) Cellulitis, leg (5) Abscess of left leg (6) Diabetes mellitus Assessment/Plan improving, clinically, episodes of fever iv abx, On micafungin now sliding sclae wound care s/p drainage of the abscess + osteomyelitis needs a few weeks of IV abx PICC line in placed Subjective ROS Limited/Unobtainable: No Allergies: Coded Allergies: PENICILLINS (Verified Allergy, Severe, SWOLLEN BODY, 04/23/17) Per Daughter, patient has tolerated Amoxicillin Tolerated Ceftriaxone 04/22/17 Objective Last 24 Hour Vital Signs Date Time Temp Pulse Resp B/P (MAP) Pulse Ox O2 Delivery O2 Flow Rate FiO2 04/30/17 20:00 98.4 85 18 144/78 100 Room Air 98.4 04/30/17 16:12 97.7 86 19 145/84 97 Room Air 97.7 04/30/17 08:00 99.5 86 18 131/63 96 99.5 04/30/17 04:27 100.3 77 19 135/79 97 100.3 04/30/17 00:00 100.1 87 21 138/72 97 100.1 Intake and Output 04/29/17 04/30/17 19:00 07:00 Intake Total 770 ml Output Total 400 ml Balance 370 ml Intake Oral 770 ml Output Urine Total 400 ml # Voids 2 3 Objective General Appearance: cachectic HEENT: normocephalic, atraumatic, anicteric Respiratory/Chest: chest wall non-tender, Breasts: no masses Cardiovascular: normal peripheral pulses Abdomen: normal bowel sounds Genitourinary: normal external genitalia Microbiology Date/Time Source Procedure Growth Status 04/28/17 16:20 Blood Blood Culture - Preliminary NO GROWTH AFTER 24 HOURS Resulted 04/28/17 16:10 Blood Blood Culture - Preliminary NO GROWTH AFTER 24 HOURS Resulted Laboratory Tests 04/30/17 04:00: White Blood Count 18.3H, Red Blood Count 2.81L, Hemoglobin 7.7L, Hematocrit 24.1L, Mean Corpuscular Volume 86, Mean Corpuscular Hemoglobin 27.5, Mean Corpuscular Hemoglobin Concent 32.1, Red Cell Distribution Width 13.5, Platelet Count 220, Mean Platelet Volume 8.6, Neutrophils (%) (Auto) , Lymphocytes (%) ( Auto) , Monocytes (%) (Auto) , Eosinophils (%) (Auto) , Basophils (%) (Auto) , Differential Total Cells Counted 100, Neutrophils % (Manual) 80H, Lymphocytes % (Manual) 15L, Monocytes % (Manual) 5, Eosinophils % (Manual) 0, Basophils % ( Manual) 0, Band Neutrophils 0, Platelet Estimate Adequate, Platelet Morphology Normal, Hypochromasia 1+, Sodium Level 143, Potassium Level 3.4L, Chloride Level 117H, Carbon Dioxide Level 16L, Anion Gap 10, Blood Urea Nitrogen 13, Creatinine 1.2, Estimat Glomerular Filtration Rate 57.0, Glucose Level 98, Calcium Level 6.5#L, Total Bilirubin 0.2, Aspartate Amino Transf (AST/SGOT) 12L , Alanine Aminotransferase (ALT/SGPT) < 6L, Alkaline Phosphatase 54, C-Reactive Protein, Quantitative 14.7H, Total Protein 4.3#L, Albumin 0.7L, Globulin 3.6, Albumin/Globulin Ratio 0.2L Current Medications Medications (Trade) Dose Ordered Sig/Artemio Route PRN Reason Start Time Stop Time Status Last Admin Dose Admin Acetaminophen (Tylenol) 650 mg Q4H PRN ORAL fever (temp>100.5F) 04/21/17 18:15 05/21/17 18:14 04/24/17 16:47 Ceftriaxone Sodium 2 gm/ Sodium Chloride 55 ml @ 110 mls/hr Q24H IVPB 04/30/17 12:00 06/09/17 11:59 04/30/17 12:24 Chlorhexidine Gluconate (Nasreen-Hex 2%) 1 applic DAILY@2000 TOPIC 04/25/17 20:00 05/25/17 19:59 04/30/17 21:13 Daptomycin 850 mg/ Sodium Chloride 55 ml @ 100 mls/hr Q24H IV 05/01/17 06:00 05/08/17 23:59 Dextrose (Dextrose 50%) STAT PRN IV Hypoglycemia 04/21/17 18:15 05/21/17 18:14 Heparin Sodium (Porcine) (Heparin 5000 units/ml) 5,000 units EVERY 12 HOURS SUBQ 04/21/17 21:00 05/21/17 20:59 04/30/17 21:19 Insulin Aspart (NovoLOG) BEFORE MEALS AND HS SUBQ 04/21/17 21:00 05/21/17 20:59 04/30/17 21:16 Insulin Detemir (Levemir) 15 units Q12HR SUBQ 04/30/17 09:00 05/30/17 08:59 04/30/17 10:43 Lansoprazole (Prevacid) 30 mg DAILY ORAL 04/23/17 13:00 05/23/17 12:59 04/30/17 09:01 Micafungin Sodium 100 mg/Sodium Chloride 110 ml @ 110 mls/hr Q24H IVPB 04/26/17 17:00 05/03/17 16:59 04/29/17 17:19 Nateglinide (Starlix) 60 mg TIAC ORAL 04/28/17 11:30 05/28/17 11:29 04/30/17 17:46 Nitroglycerin (Ntg) 0.4 mg Q5M PRN SL Prn Chest Pain 04/21/17 18:15 05/21/17 18:14 Ondansetron HCl (Zofran) 4 mg Q6H PRN IVP Nausea & Vomiting 04/21/17 18:15 05/21/17 18:14 Polyethylene Glycol (Miralax) 17 gm DAILYPRN PRN ORAL Constipation 04/21/17 18:15 05/21/17 18:14 Potassium Chloride (K-Dur) 40 meq DAILY ORAL 04/30/17 12:00 05/30/17 11:59 04/30/17 12:24 Ruby Richmond MD Apr 30, 2017 21:56
[2017-05-01] VITALS (7 sets, daily range): BP systolic 119–140; BP diastolic 71–78
--- NOTE | 2017-05-01 05:45 | Consultation ---
DATE OF CONSULTATION: 04/30/2017 NOTE: POOR AUDIO CARDIOLOGY CONSULTATION CONSULTING PHYSICIAN: Brayan Herron M.D. REFERRING PHYSICIAN: Ruby Richmond M.D. and Dr. Foy. REASON FOR REFERRAL: Bacteremia. HISTORY OF PRESENT ILLNESS: This is a middle-aged female, who unfortunately has multiple medical problems. The patient presents to the hospital because of left leg swelling and unable to ambulate secondary to foot amputation and pain and swelling and has had some abscesses, has had incision and drainage and debridement of the abscess in the left distal lateral leg and has been diagnosed with osteomyelitis of the distal fibula with evidence of bony destruction. The patient is bacteremic therefore this consultation has been requested. The patient is scheduled to have transesophageal echocardiogram. This is scheduled to be by Dr. Bowen tomorrow. The patient denies any chest pain, although she has had some tightness across her chest constantly for the past three weeks. She has some shortness of breath as well for the past two weeks. No PND, uses one pillow. There is no orthopnea. She really does not ambulate. She is basically bedridden for the past two years. PAST MEDICAL HISTORY: Positive for history of diabetes with diabetic foot infection abscess, history of high blood pressure, high cholesterol. No heart attack. She states she had history of gum cancer that was treated by . No history of stroke. No hepatitis or tuberculosis. She used to have asthma. She does have history of ulcers. She has chronic renal insufficiency stage 2. No liver disease. No arthritis. She has had anemia. She is getting blood transfusion at this time. She denies any blood clots. ALLERGIES: She is allergic to penicillin. SOCIAL HISTORY: She used to smoke and drink 20 years ago. No drugs. REVIEW OF SYSTEMS: GASTROINTESTINAL: She has had some diarrhea today after contrast that she took for CT scan. Otherwise negative. GENITOURINARY: Negative. PULMONARY: Positive for occasional coughing. CONSTITUTIONAL: Negative. NEUROLOGICAL: She has numbness and tingling sensation in her hands. PHYSICAL EXAMINATION: GENERAL: Shows to be obese female, in no respiratory distress. She is getting blood transfusion at the present time. VITAL SIGNS: Her temperature 100.5 max. This was yesterday, today is 97.7. Her blood pressure anywhere between 131/70 to 145/84. LUNGS: Appear to be clear. CARDIAC: Regular rate and rhythm. No heaves or thrills noted. ABDOMEN: Obese. Positive bowel sounds. Nontender. EXTREMITIES: She has lower extremities. NEUROLOGICAL: She is awake, alert, and responsive. LABORATORY AND DIAGNOSTIC DATA: She did have a CT scan that shows questionable acute renal inflammation and chronic postop changes, nonobstructive right renal calculus is noted. She did have a CT scan of the chest that showed bilateral basal atelectasis, possible minimal consolidation. No acute process otherwise. She did have a chest x-ray that showed right basilar atelectasis also being noted. Her laboratories include a white count that is down to 18.3 from a maximum 23,000, hemoglobin down to 7.7, and a platelet count of 220. Sodium is 143, potassium 3.4, chloride 117, bicarb of 16, BUN of 13, and creatinine 1.2. She has had creatinine up to 1.9, glucose level of 98, calcium is 6.5. Liver function tests are normal. CRP of 14.7 and albumin reportedly 0.7. Coags are obtained. Her electrocardiogram is not obtained. She had a venous duplex within normal limits. No acute deep venous thrombosis on the preliminary report. An echocardiogram was performed on 04/23/2017 and showed an ejection fraction of 60% to 65%, technically difficult study. No valvular regurgitation is noted. Her microbiology shows gram-positive cocci on 1 set and [place] on another set of blood cultures. Actually strep agalactiae is on the 3 sets of blood cultures. ASSESSMENT AND PLAN: 1. Persistent bacteremia with Streptococcus agalactiae . 2. Fungemia. 3. Left leg abscess. 4. Anemia. 5. Renal insufficiency. 6. Diabetes. 7. Diabetic nephropathy. Dr. Foy and Dr. Richmond, this patient was seen in cardiac consultation. I think it is appropriate to have a transesophageal echocardiogram. I believe scheduled to perform that tomorrow morning to evaluate. The patient does have some shortness of breath, but does not have any orthopnea. Her LV function supposedly was normal, although technically difficult study. I will follow up on the results of the echocardiogram, transesophageal once performed and we will place recommendations as needed. Brayan Herron M.D. DR: MAISHA JOB#: [id number] CC:
[2017-05-01] MEDS: DAPTOMYCIN IV SCH (06:07)
[2017-05-01] MEDS: NS IV SCH (06:07)
[2017-05-01] MEDS: Nateglinide 60mg tab ORAL SCH ×3 (06:07→16:30)
[2017-05-01] MEDS: NovoLOG Insulin Flexpen SUBQ SCH ×4 (06:09→20:33)
[2017-05-01 08:44] LABS: CREATINE KINASE 17 U/L (26-308)
[2017-05-01] MEDS: Heparin 5000 units/ml inj SUBQ SCH ×2 (09:42→20:32)
[2017-05-01] MEDS: Levemir Flexpen SUBQ SCH ×2 (10:18→20:33)
[2017-05-01 10:23] LABS: ANION GAP 11 mmol/L (5-15); BLOOD UREA NITROGEN 19 mg/dL (7-18); CALCIUM 8.6 MG/DL (8.5-10.1); CARBON DIOXIDE 20 MMOL/L (21-32); CHLORIDE 103 MMOL/L (98-107); CREATININE 1.8 MG/DL (0.55-1.30); POTASSIUM 5.6 MMOL/L (3.5-5.1); SODIUM 134 MMOL/L (136-145)
[2017-05-01 10:28] LABS: ALANINE AMINOTRANSFERASE < 6 U/L (12-78); ALBUMIN 1.3 G/DL (3.4-5.0); ALBUMIN/GLOBULIN RATIO 0.2 (1.0-2.7); ALKALINE PHOSPHATASE 71 U/L (46-116); ASPARTATE AMINO TRANSFERASE 10 U/L (15-37); BILIRUBIN,TOTAL 0.4 MG/DL (0.2-1.0); PHOSPHORUS 3.5 MG/DL (2.5-4.9)
--- NOTE | 2017-05-01 11:09 | Infectious Diseases Prog Note ---
Assessment/Plan Assessment/Plan Sepsis , ongoing L Leg cellulitis., large abscess (polymicrobial), infected ankle wound and OM c/ w polymicrobial bacteremia- improving abscess/cellulitis after I+D, however persistent bacteremia -MRI L leg: Positive for osteomyelitis of the distal fibula, with evidence of bony destruction. More subtle marrow changes as described in the talus and calcaneus, also suspicious for osteomyelitis. Evidence of soft tissue cellulitis both laterally and medially. No drainable abscess. Abnormal peroneus longus tendon, may indicate inflammation or infection. Possible damage to the distal peroneus brevis tendon - s/p bedside I+D 04/23: large abscess in left distal lateral leg down to muscle and tendon. large area of fluctuance. 50-75cc of pus evacuated; wound cx +1 K.pna (grissom S), +4 E. fecalis (grissom S) -Xray R tibia/fibula/ankle: Evidence of multiple lateral soft tissue ulcers in the distal leg and ankle. Evidence of destructive change of the distal fibula. This is highly suspicious for acute osteomyelitis. No acute bony trauma -wound cx from purulent discharge 04/22 #1: +2 MRSA, <1+ E. aerogens (S Ceftriaxone), +4 GBS; #2 +2 MRSA (S tetracycline, bactrim, vanco), +4 E. aerogens (S Ceftriaxone), E fecalis (grissom S) -ESR 116, CRP 27.7> 04/26 >70; 04/30 14.7 Polymicrobial Gram positive bacteremia-> persistent Gram positive bacteremia -Bcx 04/21 2/4 + GBS, 2/4 CoNS, 1/4MRSA, Bcx 04/22 1/4 yeast; 04/25 Bcx NTD; Bcx 2/4 S. epi ; 04/28 BCx NTD -Echo:Limited (poor acoustic views)- no vegetations, no significant valve abnormalities -CT chest/abd/p wo: Edema of the subcutaneous fat, mild. Bilateral perinephric fat stranding, not definitely evident on prior 2012 exam. May indicate acute renal inflammation, chronic postinflammatory changes, or may be a manifestation of the more generalized edema. No acute process otherwise. Fibroid uterus, also previously reported. Nonobstructive right renal calculus, also previously demonstrated. Other renal calcifications as described. Previously demonstrated right iliac chain adenopathy is no longer evident. -Bilateral basilar atelectasis, possible minimal consolidation/No acute process otherwise Fungemia -Bcx 04/22 1 C. glabrata (sensi pending) Fever, improving leukocytosis- worsened, now slightly improved- r/o endocarditis, No occult abscess on CT was seen. No CBC today 05/01 -u/a neg, ucx nTD ?PNA -CXR: Right basilar atelectasis and possibly infiltrate -sp cx p 04/25 SP PICC Dm2 HTN hx of R transmetatarsal amputation reported PNC allergy- however tolerates Amoxicillin per daughter Plan: -Continue Ceftriaxone # 10 and IV Daptomycin 8mg/kg qd abx d#10 (given persistent bacteremia and fevers), for polymicrobial (GBS, MRSA) L leg abscess, OM, bacteremia; duration for total of 42 days and Mycamine d# 6 for 2 weeks from 04/25 Continue PO Flagyl d# 9/14 -04/30 SP IV Vancomycin #7 -04/23 SP IV Vancomycin #2 and Clindamycin #2 -04/22 SP IV Aztreonam #2 -Given persistent fevers, and limited TTE, will need JOHN to evaluate for endocarditis -f/u repeat 2 sets Bcx 04/28 -Cdiff if diarrhea -f/u sp cx -f/u cx -monitor CBC/BMP, temperatures; Trend WBC and fever curve -wound care -weekly CBC, CMP, vanco through Discussed with RN, and micro lab staff Subjective Allergies: Coded Allergies: PENICILLINS (Verified Allergy, Severe, SWOLLEN BODY, 04/23/17) Per Daughter, patient has tolerated Amoxicillin Tolerated Ceftriaxone 04/22/17 Subjective afebrile in 24hrs no cbc today repeat bcx 04/28 NTD for JOHN Objective Vital Signs Last 24 Hour Vital Signs Date Time Temp Pulse Resp B/P (MAP) Pulse Ox O2 Delivery O2 Flow Rate FiO2 05/01/17 09:04 97.7 90 18 119/74 100 Room Air 97.7 05/01/17 08:15 97.7 90 18 119/74 Room Air 97.7 05/01/17 04:00 98.6 87 18 133/75 98 Room Air 98.6 05/01/17 04:00 Room Air 05/01/17 00:00 99.7 94 18 138/73 99 Room Air 99.7 04/30/17 20:00 98.4 85 18 144/78 100 Room Air 98.4 04/30/17 16:12 97.7 86 19 145/84 97 Room Air 97.7 Height (Feet): 5 Height (Inches): 4.00 Weight (Pounds): 232 Objective General Appearance: WD/WN Lines, tubes and drains: peripheral HEENT: normocephalic, atraumatic Neck: non-tender, normal alignment Respiratory/Chest: chest wall non-tender, lungs clear Cardiovascular/Chest: normal peripheral pulses, normal rate Abdomen: normal bowel sounds, non tender Ext: R foot s/p metatarsal amputation- stump with no signs of infection L foot: dressings in place Microbiology Date/Time Source Procedure Growth Status 04/28/17 16:20 Blood Blood Culture - Preliminary NO GROWTH AFTER 48 HOURS Resulted 04/28/17 16:10 Blood Blood Culture - Preliminary NO GROWTH AFTER 48 HOURS Resulted Laboratory Tests Test 05/01/17 05:55 Sodium Level 134 MMOL/L (136-145) L Potassium Level 5.6 MMOL/L (3.5-5.1) #H Chloride Level 103 MMOL/L (98-107) Carbon Dioxide Level 20 MMOL/L (21-32) L Anion Gap 11 mmol/L (5-15) Blood Urea Nitrogen 19 mg/dL (7-18) H Creatinine 1.8 MG/DL (0.55-1.30) H Estimat Glomerular Filtration Rate 35.8 mL/min (>60) Glucose Level 218 MG/DL (74-106) #H Calcium Level 8.6 MG/DL (8.5-10.1) # Phosphorus Level 3.5 MG/DL (2.5-4.9) Magnesium Level 1.8 MG/DL (1.8-2.4) Total Bilirubin 0.4 MG/DL (0.2-1.0) Aspartate Amino Transf (AST/SGOT) 10 U/L (15-37) L Alanine Aminotransferase (ALT/SGPT) < 6 U/L (12-78) L Alkaline Phosphatase 71 U/L (46-116) Total Creatine Kinase 17 U/L (26-308) L Total Protein 6.6 G/DL (6.4-8.2) # Albumin 1.3 G/DL (3.4-5.0) L Globulin 5.3 g/dL Albumin/Globulin Ratio 0.2 (1.0-2.7) L Current Medications Medications (Trade) Dose Ordered Sig/Artemio Route PRN Reason Start Time Stop Time Status Last Admin Dose Admin Acetaminophen (Tylenol) 650 mg Q4H PRN ORAL fever (temp>100.5F) 04/21/17 18:15 05/21/17 18:14 04/24/17 16:47 Ceftriaxone Sodium 2 gm/ Sodium Chloride 55 ml @ 110 mls/hr Q24H IVPB 04/30/17 12:00 06/09/17 11:59 04/30/17 12:24 Chlorhexidine Gluconate (Nasreen-Hex 2%) 1 applic DAILY@2000 TOPIC 04/25/17 20:00 05/25/17 19:59 04/30/17 21:13 Daptomycin 850 mg/ Sodium Chloride 55 ml @ 100 mls/hr Q24H IV 05/01/17 06:00 05/08/17 23:59 05/01/17 06:07 Dextrose (Dextrose 50%) STAT PRN IV Hypoglycemia 04/21/17 18:15 05/21/17 18:14 Heparin Sodium (Porcine) (Heparin 5000 units/ml) 5,000 units EVERY 12 HOURS SUBQ 04/21/17 21:00 05/21/17 20:59 05/01/17 09:42 Insulin Aspart (NovoLOG) BEFORE MEALS AND HS SUBQ 04/21/17 21:00 05/21/17 20:59 05/01/17 06:09 Insulin Detemir (Levemir) 15 units Q12HR SUBQ 04/30/17 09:00 05/30/17 08:59 05/01/17 10:18 Lansoprazole (Prevacid) 30 mg DAILY ORAL 04/23/17 13:00 05/23/17 12:59 05/01/17 09:40 Micafungin Sodium 100 mg/Sodium Chloride 110 ml @ 110 mls/hr Q24H IVPB 04/26/17 17:00 05/03/17 16:59 04/29/17 17:19 Nateglinide (Starlix) 60 mg TIAC ORAL 04/28/17 11:30 05/28/17 11:29 05/01/17 06:07 Nitroglycerin (Ntg) 0.4 mg Q5M PRN SL Prn Chest Pain 04/21/17 18:15 05/21/17 18:14 Ondansetron HCl (Zofran) 4 mg Q6H PRN IVP Nausea & Vomiting 04/21/17 18:15 05/21/17 18:14 Polyethylene Glycol (Miralax) 17 gm DAILYPRN PRN ORAL Constipation 04/21/17 18:15 05/21/17 18:14 Potassium Chloride (K-Dur) 40 meq DAILY ORAL 04/30/17 12:00 05/30/17 11:59 05/01/17 09:40 Faye Foy M.D. May 01, 2017 11:09
[2017-05-01] MEDS: cefTRIAXone 2 GM in NS 55 ML IVPB SCH (12:45)
--- NOTE | 2017-05-01 15:21 | Nephrology Progress Note ---
Assessment/Plan Problem List: (1) CKD (chronic kidney disease) (2) Diabetic nephropathy (3) Anemia in chronic kidney disease Assessment Renal Assessment: Renal failure- ? Diabetic nephropathy , CKD cr down to wnl Anemia HypoAlbuminemia r/o Nephrotic State Other: rising WBCs Sepsis due to L Leg cellulitis/abscess c/w bacteremia- r/o Strep necrotizing infection- rising WBCs Fever/leukocytosis Dm2 HTN hx of R transmetatarsal amputation reported PNC allergy- Plan Plan: Po K supplement Per ID 24 H urine protein over 3 grams K supplement Anemia li avoid nephrotoxics per orders Subjective ROS Limited/Unobtainable: No Objective Objective Last 24 Hour Vital Signs Date Time Temp Pulse Resp B/P (MAP) Pulse Ox O2 Delivery O2 Flow Rate FiO2 05/01/17 11:38 98.2 93 20 140/76 Room Air 98.2 05/01/17 09:04 97.7 90 18 119/74 100 Room Air 97.7 05/01/17 08:15 97.7 90 18 119/74 Room Air 97.7 05/01/17 04:00 98.6 87 18 133/75 98 Room Air 98.6 05/01/17 04:00 Room Air 05/01/17 00:00 99.7 94 18 138/73 99 Room Air 99.7 04/30/17 20:00 98.4 85 18 144/78 100 Room Air 98.4 04/30/17 16:12 97.7 86 19 145/84 97 Room Air 97.7 Intake and Output 04/30/17 05/01/17 19:00 07:00 Intake Total 800 ml 55 ml Output Total 500 ml Balance 300 ml 55 ml Intake Oral 800 ml IV Total 55 ml Output Urine Total 500 ml # Voids 4 2 # Bowel Movements 1 Laboratory Tests 05/01/17 05:55: Sodium Level 134L, Potassium Level 5.6#H, Chloride Level 103, Carbon Dioxide Level 20L, Anion Gap 11, Blood Urea Nitrogen 19H, Creatinine 1.8H, Estimat Glomerular Filtration Rate 35.8, Glucose Level 218#H, Calcium Level 8.6#, Phosphorus Level 3.5, Magnesium Level 1.8, Total Bilirubin 0.4, Aspartate Amino Transf (AST/SGOT) 10L, Alanine Aminotransferase (ALT/SGPT) < 6L, Alkaline Phosphatase 71, Total Creatine Kinase 17L, Total Protein 6.6#, Albumin 1.3L, Globulin 5.3, Albumin/Globulin Ratio 0.2L Height (Feet): 5 Height (Inches): 4.00 Weight (Pounds): 232 General Appearance: no apparent distress Objective no change IBETH ROSAS May 01, 2017 15:21
--- NOTE | 2017-05-01 15:54 | Pulmonology Progress Note ---
Assessment/Plan Problems: (1) Sepsis (2) Bacteremia (3) Fungemia (4) Cellulitis, leg (5) Abscess of left leg (6) Diabetes mellitus Assessment/Plan improving, clinically, episodes of fever iv abx, On micafungin now sliding sclae wound care s/p drainage of the abscess + osteomyelitis needs a few weeks of IV abx PICC line in placed Subjective ROS Limited/Unobtainable: No Interval Events: afebrile for 24 hours Allergies: Coded Allergies: PENICILLINS (Verified Allergy, Severe, SWOLLEN BODY, 04/23/17) Per Daughter, patient has tolerated Amoxicillin Tolerated Ceftriaxone 04/22/17 Objective Last 24 Hour Vital Signs Date Time Temp Pulse Resp B/P (MAP) Pulse Ox O2 Delivery O2 Flow Rate FiO2 05/01/17 11:38 98.2 93 20 140/76 Room Air 98.2 05/01/17 09:04 97.7 90 18 119/74 100 Room Air 97.7 05/01/17 08:15 97.7 90 18 119/74 Room Air 97.7 05/01/17 04:00 98.6 87 18 133/75 98 Room Air 98.6 05/01/17 04:00 Room Air 05/01/17 00:00 99.7 94 18 138/73 99 Room Air 99.7 04/30/17 20:00 98.4 85 18 144/78 100 Room Air 98.4 04/30/17 16:12 97.7 86 19 145/84 97 Room Air 97.7 Intake and Output 04/30/17 05/01/17 19:00 07:00 Intake Total 800 ml 55 ml Output Total 500 ml Balance 300 ml 55 ml Intake Oral 800 ml IV Total 55 ml Output Urine Total 500 ml # Voids 4 2 # Bowel Movements 1 Objective General Appearance: cachectic HEENT: normocephalic, atraumatic, anicteric Respiratory/Chest: chest wall non-tender, Breasts: no masses Cardiovascular: normal peripheral pulses Abdomen: normal bowel sounds Genitourinary: normal external genitalia Microbiology Date/Time Source Procedure Growth Status 04/28/17 16:20 Blood Blood Culture - Preliminary NO GROWTH AFTER 48 HOURS Resulted 04/28/17 16:10 Blood Blood Culture - Preliminary NO GROWTH AFTER 48 HOURS Resulted Laboratory Tests 05/01/17 05:55: Sodium Level 134L, Potassium Level 5.6#H, Chloride Level 103, Carbon Dioxide Level 20L, Anion Gap 11, Blood Urea Nitrogen 19H, Creatinine 1.8H, Estimat Glomerular Filtration Rate 35.8, Glucose Level 218#H, Calcium Level 8.6#, Phosphorus Level 3.5, Magnesium Level 1.8, Total Bilirubin 0.4, Aspartate Amino Transf (AST/SGOT) 10L, Alanine Aminotransferase (ALT/SGPT) < 6L, Alkaline Phosphatase 71, Total Creatine Kinase 17L, Total Protein 6.6#, Albumin 1.3L, Globulin 5.3, Albumin/Globulin Ratio 0.2L Current Medications Medications (Trade) Dose Ordered Sig/Artemio Route PRN Reason Start Time Stop Time Status Last Admin Dose Admin Acetaminophen (Tylenol) 650 mg Q4H PRN ORAL fever (temp>100.5F) 04/21/17 18:15 05/21/17 18:14 04/24/17 16:47 Ceftriaxone Sodium 2 gm/ Sodium Chloride 55 ml @ 110 mls/hr Q24H IVPB 04/30/17 12:00 06/09/17 11:59 05/01/17 12:45 Chlorhexidine Gluconate (Nasreen-Hex 2%) 1 applic DAILY@2000 TOPIC 04/25/17 20:00 05/25/17 19:59 04/30/17 21:13 Daptomycin 850 mg/ Sodium Chloride 55 ml @ 100 mls/hr Q24H IV 05/01/17 06:00 05/08/17 23:59 05/01/17 06:07 Dextrose (Dextrose 50%) STAT PRN IV Hypoglycemia 04/21/17 18:15 05/21/17 18:14 Heparin Sodium (Porcine) (Heparin 5000 units/ml) 5,000 units EVERY 12 HOURS SUBQ 04/21/17 21:00 05/21/17 20:59 05/01/17 09:42 Insulin Aspart (NovoLOG) BEFORE MEALS AND HS SUBQ 04/21/17 21:00 05/21/17 20:59 05/01/17 12:52 Insulin Detemir (Levemir) 15 units Q12HR SUBQ 04/30/17 09:00 05/30/17 08:59 05/01/17 10:18 Lansoprazole (Prevacid) 30 mg DAILY ORAL 04/23/17 13:00 05/23/17 12:59 05/01/17 09:40 Micafungin Sodium 100 mg/Sodium Chloride 110 ml @ 110 mls/hr Q24H IVPB 04/26/17 17:00 05/03/17 16:59 04/29/17 17:19 Nateglinide (Starlix) 60 mg TIAC ORAL 04/28/17 11:30 05/28/17 11:29 05/01/17 06:07 Nitroglycerin (Ntg) 0.4 mg Q5M PRN SL Prn Chest Pain 04/21/17 18:15 05/21/17 18:14 Ondansetron HCl (Zofran) 4 mg Q6H PRN IVP Nausea & Vomiting 04/21/17 18:15 05/21/17 18:14 Polyethylene Glycol (Miralax) 17 gm DAILYPRN PRN ORAL Constipation 04/21/17 18:15 05/21/17 18:14 Sodium Polystyrene Sulfonate (Kayexalate) 30 gm ONCE ONCE ORAL 05/01/17 16:00 05/01/17 16:01 Ruby Richmond MD May 01, 2017 15:54
[2017-05-01] MEDS ORDERED: Sodium Polystyrene Sulfonate 15gm Powder ORAL ONE (16:00)
--- NOTE | 2017-05-01 17:55 | Cardiology Progress Note ---
Assessment/Plan Assessment/Plan 1. Persistent bacteremia with Streptococcus agalactiae . 2. Fungemia. 3. Left leg abscess. 4. Anemia. 5. Renal insufficiency. 6. Diabetes. 7. Diabetic nephropathy. 8. Loose upper incisor tooth tami cancelled due to loose upper incisor id feel tami can be voaided at this time will follow on repaeat cx contineu on iv abx no chf on exam at this time Subjective Cardiovascular: Denies: chest pain, irregular heart rate, lightheadedness, palpitations Respiratory: Denies: shortness of breath Gastrointestinal/Abdominal: Denies: abdomen distended Genitourinary: Denies: burning Objective Last 24 Hour Vital Signs Date Time Temp Pulse Resp B/P (MAP) Pulse Ox O2 Delivery O2 Flow Rate FiO2 05/01/17 16:10 98.1 86 19 125/78 Room Air 98.1 05/01/17 11:38 98.2 93 20 140/76 Room Air 98.2 05/01/17 09:04 97.7 90 18 119/74 100 Room Air 97.7 05/01/17 08:15 97.7 90 18 119/74 Room Air 97.7 05/01/17 04:00 98.6 87 18 133/75 98 Room Air 98.6 05/01/17 04:00 Room Air 05/01/17 00:00 99.7 94 18 138/73 99 Room Air 99.7 04/30/17 20:00 98.4 85 18 144/78 100 Room Air 98.4 General Appearance: alert Neck: supple Cardiovascular: normal rate Respiratory/Chest: lungs clear, normal breath sounds Abdomen: normal bowel sounds, non tender, soft Extremities: no swelling Intake and Output 04/30/17 05/01/17 19:00 07:00 Intake Total 800 ml 55 ml Output Total 500 ml Balance 300 ml 55 ml Intake Oral 800 ml IV Total 55 ml Output Urine Total 500 ml # Voids 4 2 # Bowel Movements 1 Laboratory Tests Test 05/01/17 05:55 Sodium Level 134 MMOL/L (136-145) L Potassium Level 5.6 MMOL/L (3.5-5.1) #H Chloride Level 103 MMOL/L (98-107) Carbon Dioxide Level 20 MMOL/L (21-32) L Anion Gap 11 mmol/L (5-15) Blood Urea Nitrogen 19 mg/dL (7-18) H Creatinine 1.8 MG/DL (0.55-1.30) H Estimat Glomerular Filtration Rate 35.8 mL/min (>60) Glucose Level 218 MG/DL (74-106) #H Calcium Level 8.6 MG/DL (8.5-10.1) # Phosphorus Level 3.5 MG/DL (2.5-4.9) Magnesium Level 1.8 MG/DL (1.8-2.4) Total Bilirubin 0.4 MG/DL (0.2-1.0) Aspartate Amino Transf (AST/SGOT) 10 U/L (15-37) L Alanine Aminotransferase (ALT/SGPT) < 6 U/L (12-78) L Alkaline Phosphatase 71 U/L (46-116) Total Creatine Kinase 17 U/L (26-308) L Total Protein 6.6 G/DL (6.4-8.2) # Albumin 1.3 G/DL (3.4-5.0) L Globulin 5.3 g/dL Albumin/Globulin Ratio 0.2 (1.0-2.7) L ELEAZAR JOSÉ May 01, 2017 17:55
[2017-05-01] MEDS: Micafungin 100 MG in NS 110 ML IVPB SCH (18:24)
[2017-05-01] MEDS: Dyna-Hex 2% Top Sol 2oz TOPIC SCH (20:30)
--- NOTE | 2017-05-01 21:59 | General Progress Note ---
Assessment/Plan Assessment/Plan adjustment d/o grief mdd -no meds at this time -provided st/ro Subjective Date patient seen: May 01, 2017 Allergies: Coded Allergies: PENICILLINS (Verified Allergy, Severe, SWOLLEN BODY, 04/23/17) Per Daughter, patient has tolerated Amoxicillin Tolerated Ceftriaxone 04/22/17 Subjective the pt is depressed and has irritability. the pt stated "as long as I am not seeing the people I am ok with that. Objective Last 24 Hour Vital Signs Date Time Temp Pulse Resp B/P (MAP) Pulse Ox O2 Delivery O2 Flow Rate FiO2 05/01/17 20:00 98.2 87 18 123/71 99 98.2 05/01/17 16:10 98.1 86 19 125/78 Room Air 98.1 05/01/17 11:38 98.2 93 20 140/76 Room Air 98.2 05/01/17 09:04 97.7 90 18 119/74 100 Room Air 97.7 05/01/17 08:15 97.7 90 18 119/74 Room Air 97.7 05/01/17 04:00 98.6 87 18 133/75 98 Room Air 98.6 05/01/17 04:00 Room Air 05/01/17 00:00 99.7 94 18 138/73 99 Room Air 99.7 Intake and Output 04/30/17 05/01/17 19:00 07:00 Intake Total 800 ml 55 ml Output Total 500 ml Balance 300 ml 55 ml Intake Oral 800 ml IV Total 55 ml Output Urine Total 500 ml # Voids 4 2 # Bowel Movements 1 Laboratory Tests 05/01/17 05:55: Sodium Level 134L, Potassium Level 5.6#H, Chloride Level 103, Carbon Dioxide Level 20L, Anion Gap 11, Blood Urea Nitrogen 19H, Creatinine 1.8H, Estimat Glomerular Filtration Rate 35.8, Glucose Level 218#H, Calcium Level 8.6#, Phosphorus Level 3.5, Magnesium Level 1.8, Total Bilirubin 0.4, Aspartate Amino Transf (AST/SGOT) 10L, Alanine Aminotransferase (ALT/SGPT) < 6L, Alkaline Phosphatase 71, Total Creatine Kinase 17L, Total Protein 6.6#, Albumin 1.3L, Globulin 5.3, Albumin/Globulin Ratio 0.2L Height (Feet): 5 Height (Inches): 4.00 Weight (Pounds): 232 Remington Kimbrough M.D. May 01, 2017 21:59
[2017-05-02] VITALS: BP 111/60
[2017-05-02 04:00] VITALS: BP 127/75
[2017-05-02] MEDS: NS IV SCH (06:09)
[2017-05-02] MEDS: DAPTOMYCIN IV SCH (06:09)
[2017-05-02] MEDS: Nateglinide 60mg tab ORAL SCH ×3 (06:30→16:30)
[2017-05-02] MEDS: NovoLOG Insulin Flexpen SUBQ SCH ×4 (06:37→21:26)
[2017-05-02 07:59] LABS: BASOPHILS % (AUTO) 0.6 % (0.0-2.0); EOSINOPHILS % (AUTO) 0.5 % (0.0-3.0); HEMATOCRIT 26.5 % (37.0-47.0); HEMOGLOBIN 8.5 G/DL (12.0-16.0); LYMPHOCYTES % (AUTO) 11.8 % (20.0-45.0); MEAN CORPUSCULAR VOLUME 87 FL (80-99); MONOCYTES % (AUTO) 5.9 % (1.0-10.0); NEUTROPHILS % (AUTO) 81.4 % (45.0-75.0); PLATELET COUNT 249 K/UL (150-450); RED BLOOD COUNT 3.04 M/UL (4.20-5.40); WHITE BLOOD COUNT 13.7 K/UL (4.8-10.8)
[2017-05-02 08:00] VITALS: BP 124/83
--- NOTE | 2017-05-02 08:25 | Pulmonology Progress Note ---
Assessment/Plan Assessment/Plan ASSESSMENT Sepsis with persistent bacteremia fungemia L leg cellulitis L leg abscess s/p I&D 04/23 OM L leg distal fibula Possible PNA DM OOC ( [id number]) HTN anemia of chronic kidney disease, s/p blood transfusion ARF on CKD Diabetic nephropathy e/lyte imbalance morbid obesity MDD adjustment disorder Hx of R transmetatarsal amputation PLAN OF CARE MS floor abx and Mycamine ID follows Last blood cx 04/28 prel negative Need total of 6 weeks of abx ECHO with pEF 60-65%. No evidence of vegetation JOHN cancelled due to loose upper incisor ID felt that JOHN could be avoided at this time Venous Duplex negative X ray L T/F no acute fx X ray L ankle suspicious for OM; MRI L ankle + osteo CXR with possible infiltrate CT chest bilateral atelectasis, possible minimal consolidation CT A/P negative for acute pathology nephro follows Renal US no hydro, increased renal echogenicity c/w medical renal disease 24hr ur >3 gm protein Endo follows, on levemir and premeal Novolog and SSI prn Monitor HH , transfuse prn anemia w/up pain management pain specialist follows DVT GI prophylaxis dc plan to SNF for IV abx if cleared by ID patient prefers [facility] case discussed and evaluated by supervising physician Subjective Allergies: Coded Allergies: PENICILLINS (Verified Allergy, Severe, SWOLLEN BODY, 04/23/17) Per Daughter, patient has tolerated Amoxicillin Tolerated Ceftriaxone 04/22/17 Subjective leukocytosis trending down, 99.6 this am JOHN cancelled for 05/01 due to loose teeth patient declined PT, stating that she can herself move from bed to w/c Objective Last 24 Hour Vital Signs Date Time Temp Pulse Resp B/P (MAP) Pulse Ox O2 Delivery O2 Flow Rate FiO2 05/02/17 04:00 97.0 90 20 127/75 91 97.0 05/02/17 00:00 98.6 89 20 111/60 98 98.6 05/01/17 20:00 98.2 87 18 123/71 99 98.2 05/01/17 16:10 98.1 86 19 125/78 Room Air 98.1 05/01/17 11:38 98.2 93 20 140/76 Room Air 98.2 05/01/17 09:04 97.7 90 18 119/74 100 Room Air 97.7 Intake and Output 05/01/17 05/02/17 19:00 07:00 Intake Total 55 ml 210 ml Output Total 1200 ml 600 ml Balance -1145 ml -390 ml IV Total 55 ml 210 ml Output Urine Total 1200 ml 600 ml General Appearance: no acute distress, other - A/A/O x 3 A female HEENT: normocephalic, atraumatic, anicteric Respiratory/Chest: lungs clear, no respiratory distress Cardiovascular: normal rate, no JVD, other - PUICC RUE intact Abdomen: normal bowel sounds, soft, non tender - obese, non distended Extremities: other - R transmetatarsal amputation, stump cleaned ; Left leg with dressing C/D/I Neurologic/Psychiatric: abnormal gait - w/chair bound for now , alert, oriented x 3, responsive Laboratory Tests 05/02/17 06:15: White Blood Count 13.7H, Red Blood Count 3.04L, Hemoglobin 8.5L, Hematocrit 26.5L, Mean Corpuscular Volume 87, Mean Corpuscular Hemoglobin 27.8, Mean Corpuscular Hemoglobin Concent 31.9L, Red Cell Distribution Width 14.0, Platelet Count 249, Mean Platelet Volume 7.5, Neutrophils (%) (Auto) 81.4H, Lymphocytes (%) (Auto) 11.8L, Monocytes (%) (Auto) 5.9, Eosinophils (%) (Auto) 0.5, Basophils (%) (Auto) 0.6, Sodium Level [Pending], Potassium Level [Pending] , Chloride Level [Pending], Carbon Dioxide Level [Pending], Blood Urea Nitrogen [Pending], Creatinine [Pending], Estimat Glomerular Filtration Rate [Pending], Glucose Level [Pending], Calcium Level [Pending], Total Bilirubin [Pending], Aspartate Amino Transf (AST/SGOT) [Pending], Alanine Aminotransferase (ALT/SGPT ) [Pending], Alkaline Phosphatase [Pending], Total Protein [Pending], Albumin [ Pending], Globulin [Pending] Current Medications Medications (Trade) Dose Ordered Sig/Artemio Route PRN Reason Start Time Stop Time Status Last Admin Dose Admin Acetaminophen (Tylenol) 650 mg Q4H PRN ORAL fever (temp>100.5F) 04/21/17 18:15 05/21/17 18:14 04/24/17 16:47 Ceftriaxone Sodium 2 gm/ Sodium Chloride 55 ml @ 110 mls/hr Q24H IVPB 04/30/17 12:00 06/09/17 11:59 05/01/17 12:45 Chlorhexidine Gluconate (Nasreen-Hex 2%) 1 applic DAILY@2000 TOPIC 04/25/17 20:00 05/25/17 19:59 05/01/17 20:30 Daptomycin 850 mg/ Sodium Chloride 55 ml @ 100 mls/hr Q24H IV 05/01/17 06:00 05/08/17 23:59 05/02/17 06:09 Dextrose (Dextrose 50%) STAT PRN IV Hypoglycemia 04/21/17 18:15 05/21/17 18:14 Heparin Sodium (Porcine) (Heparin 5000 units/ml) 5,000 units EVERY 12 HOURS SUBQ 04/21/17 21:00 05/21/17 20:59 05/01/17 20:32 Insulin Aspart (NovoLOG) BEFORE MEALS AND HS SUBQ 04/21/17 21:00 05/21/17 20:59 05/02/17 06:37 Insulin Detemir (Levemir) 15 units Q12HR SUBQ 04/30/17 09:00 05/30/17 08:59 05/01/17 20:33 Lansoprazole (Prevacid) 30 mg DAILY ORAL 04/23/17 13:00 05/23/17 12:59 05/01/17 09:40 Micafungin Sodium 100 mg/Sodium Chloride 110 ml @ 110 mls/hr Q24H IVPB 04/26/17 17:00 05/03/17 16:59 05/01/17 18:24 Nateglinide (Starlix) 60 mg TIAC ORAL 04/28/17 11:30 05/28/17 11:29 05/01/17 06:07 Nitroglycerin (Ntg) 0.4 mg Q5M PRN SL Prn Chest Pain 04/21/17 18:15 05/21/17 18:14 Ondansetron HCl (Zofran) 4 mg Q6H PRN IVP Nausea & Vomiting 04/21/17 18:15 05/21/17 18:14 Polyethylene Glycol (Miralax) 17 gm DAILYPRN PRN ORAL Constipation 04/21/17 18:15 05/21/17 18:14 Jhon[facility] ([facility]),Sarah PATIÑO May 02, 2017 08:25
[2017-05-02 08:38] LABS: ALANINE AMINOTRANSFERASE 6 U/L (12-78); ALBUMIN 1.2 G/DL (3.4-5.0); ALBUMIN/GLOBULIN RATIO 0.2 (1.0-2.7); ALKALINE PHOSPHATASE 71 U/L (46-116); ANION GAP 8 mmol/L (5-15); ASPARTATE AMINO TRANSFERASE 8 U/L (15-37); BILIRUBIN,TOTAL 0.2 MG/DL (0.2-1.0); BLOOD UREA NITROGEN 18 mg/dL (7-18); CALCIUM 8.3 MG/DL (8.5-10.1); CARBON DIOXIDE 23 MMOL/L (21-32); CHLORIDE 101 MMOL/L (98-107); POTASSIUM 4.9 MMOL/L (3.5-5.1); SODIUM 131 MMOL/L (136-145)
[2017-05-02] MEDS: Heparin 5000 units/ml inj SUBQ SCH ×2 (08:40→21:24)
[2017-05-02] MEDS: Levemir Flexpen SUBQ SCH ×2 (08:41→21:25)
[2017-05-02 11:56] VITALS: BP 124/74
[2017-05-02] MEDS: cefTRIAXone 2 GM in NS 55 ML IVPB SCH (12:41)
--- NOTE | 2017-05-02 14:46 | General Progress Note ---
Assessment/Plan Status: stable, progressing Assessment/Plan anxiety d/o grief mdd -no meds at this time -provided st/ro Subjective Date patient seen: May 02, 2017 Neurologic/Psychiatric: Reports: anxiety, depressed, emotional problems Allergies: Coded Allergies: PENICILLINS (Verified Allergy, Severe, SWOLLEN BODY, 04/23/17) Per Daughter, patient has tolerated Amoxicillin Tolerated Ceftriaxone 04/22/17 Subjective the pt is anxious. the pt stated that she was upset since someone told her today that she has to take wheelchair training Objective Last 24 Hour Vital Signs Date Time Temp Pulse Resp B/P (MAP) Pulse Ox O2 Delivery O2 Flow Rate FiO2 05/02/17 11:56 98.6 91 20 124/74 99 Room Air 98.6 05/02/17 08:00 99.6 90 18 124/83 99 Room Air 99.6 05/02/17 04:00 97.0 90 20 127/75 91 97.0 05/02/17 00:00 98.6 89 20 111/60 98 98.6 05/01/17 20:00 98.2 87 18 123/71 99 98.2 05/01/17 16:10 98.1 86 19 125/78 Room Air 98.1 Intake and Output 05/01/17 05/02/17 19:00 07:00 Intake Total 55 ml 210 ml Output Total 1200 ml 600 ml Balance -1145 ml -390 ml IV Total 55 ml 210 ml Output Urine Total 1200 ml 600 ml Laboratory Tests 05/02/17 06:15: White Blood Count 13.7H, Red Blood Count 3.04L, Hemoglobin 8.5L, Hematocrit 26.5L, Mean Corpuscular Volume 87, Mean Corpuscular Hemoglobin 27.8, Mean Corpuscular Hemoglobin Concent 31.9L, Red Cell Distribution Width 14.0, Platelet Count 249, Mean Platelet Volume 7.5, Neutrophils (%) (Auto) 81.4H, Lymphocytes (%) (Auto) 11.8L, Monocytes (%) (Auto) 5.9, Eosinophils (%) (Auto) 0.5, Basophils (%) (Auto) 0.6, Sodium Level 131L, Potassium Level 4.9, Chloride Level 101, Carbon Dioxide Level 23, Anion Gap 8, Blood Urea Nitrogen 18, Creatinine 2.0H, Estimat Glomerular Filtration Rate 31.5, Glucose Level 243H, Calcium Level 8.3L, Total Bilirubin 0.2, Aspartate Amino Transf (AST/SGOT) 8L, Alanine Aminotransferase (ALT/SGPT) 6L, Alkaline Phosphatase 71, Total Protein 6.4, Albumin 1.2L, Globulin 5.2, Albumin/Globulin Ratio 0.2L Height (Feet): 5 Height (Inches): 4.00 Weight (Pounds): 232 General Appearance: WD/WN, no apparent distress, alert Neurologic: alert, oriented x 3, responsive, depressed affect Remington Kimbrough M.D. May 02, 2017 14:46
--- NOTE | 2017-05-02 14:54 | Nephrology Progress Note ---
Assessment/Plan Problem List: (1) CKD (chronic kidney disease) (2) Diabetic nephropathy (3) Anemia in chronic kidney disease Assessment Renal Assessment: Renal failure- ? Diabetic nephropathy , CKD cr up to 2 HypoAlbuminemia r/o Nephrotic State Other: rising WBCs Sepsis due to L Leg cellulitis/abscess c/w bacteremia- r/o Strep necrotizing infection- rising WBCs Fever/leukocytosis Dm2 HTN hx of R transmetatarsal amputation reported PNC allergy- Plan Plan: albumin 5% one bollous Per ID 24 H urine protein over 3 grams K supplement Anemia li avoid nephrotoxics per orders Subjective ROS Limited/Unobtainable: No Constitutional: Reports: malaise Objective Objective Last 24 Hour Vital Signs Date Time Temp Pulse Resp B/P (MAP) Pulse Ox O2 Delivery O2 Flow Rate FiO2 05/02/17 11:56 98.6 91 20 124/74 99 Room Air 98.6 05/02/17 08:00 99.6 90 18 124/83 99 Room Air 99.6 05/02/17 04:00 97.0 90 20 127/75 91 97.0 05/02/17 00:00 98.6 89 20 111/60 98 98.6 05/01/17 20:00 98.2 87 18 123/71 99 98.2 05/01/17 16:10 98.1 86 19 125/78 Room Air 98.1 Intake and Output 05/01/17 05/02/17 19:00 07:00 Intake Total 55 ml 210 ml Output Total 1200 ml 600 ml Balance -1145 ml -390 ml IV Total 55 ml 210 ml Output Urine Total 1200 ml 600 ml Laboratory Tests 05/02/17 06:15: White Blood Count 13.7H, Red Blood Count 3.04L, Hemoglobin 8.5L, Hematocrit 26.5L, Mean Corpuscular Volume 87, Mean Corpuscular Hemoglobin 27.8, Mean Corpuscular Hemoglobin Concent 31.9L, Red Cell Distribution Width 14.0, Platelet Count 249, Mean Platelet Volume 7.5, Neutrophils (%) (Auto) 81.4H, Lymphocytes (%) (Auto) 11.8L, Monocytes (%) (Auto) 5.9, Eosinophils (%) (Auto) 0.5, Basophils (%) (Auto) 0.6, Sodium Level 131L, Potassium Level 4.9, Chloride Level 101, Carbon Dioxide Level 23, Anion Gap 8, Blood Urea Nitrogen 18, Creatinine 2.0H, Estimat Glomerular Filtration Rate 31.5, Glucose Level 243H, Calcium Level 8.3L, Total Bilirubin 0.2, Aspartate Amino Transf (AST/SGOT) 8L, Alanine Aminotransferase (ALT/SGPT) 6L, Alkaline Phosphatase 71, Total Protein 6.4, Albumin 1.2L, Globulin 5.2, Albumin/Globulin Ratio 0.2L Height (Feet): 5 Height (Inches): 4.00 Weight (Pounds): 232 General Appearance: no apparent distress Objective no change IBETH ROSAS May 02, 2017 14:54
[2017-05-02] MEDS ORDERED: Albumin Human 5% 250ml IV ONE (15:00)
--- NOTE | 2017-05-02 15:43 | Infectious Diseases Prog Note ---
Assessment/Plan Assessment/Plan Sepsis , resolving L Leg cellulitis., large abscess (polymicrobial), infected ankle wound and OM c/ w polymicrobial bacteremia- improving -MRI L leg: Positive for osteomyelitis of the distal fibula, with evidence of bony destruction. More subtle marrow changes as described in the talus and calcaneus, also suspicious for osteomyelitis. Evidence of soft tissue cellulitis both laterally and medially. No drainable abscess. Abnormal peroneus longus tendon, may indicate inflammation or infection. Possible damage to the distal peroneus brevis tendon - s/p bedside I+D 04/23: large abscess in left distal lateral leg down to muscle and tendon. large area of fluctuance. 50-75cc of pus evacuated; wound cx +1 K.pna (grissom S), +4 E. fecalis (grissom S) -Xray R tibia/fibula/ankle: Evidence of multiple lateral soft tissue ulcers in the distal leg and ankle. Evidence of destructive change of the distal fibula. This is highly suspicious for acute osteomyelitis. No acute bony trauma -wound cx from purulent discharge 04/22 #1: +2 MRSA, <1+ E. aerogens (S Ceftriaxone), +4 GBS; #2 +2 MRSA (S tetracycline, bactrim, vanco), +4 E. aerogens (S Ceftriaxone), E fecalis (grissom S) -ESR 116, CRP 27.7> 04/26 >70; 04/30 14.7 Polymicrobial Gram positive bacteremia-> persistent Gram positive bacteremia, now clearing -Bcx 04/21 2/4 + GBS, 2/4 CoNS, 1/4MRSA, Bcx 04/22 1/4 yeast; 04/25 Bcx NTD; Bcx 2/4 S. epi (from same bottle) ; 04/28 BCx NTD -Echo:Limited (poor acoustic views)- no vegetations, no significant valve abnormalities -CT chest/abd/p wo: Edema of the subcutaneous fat, mild. Bilateral perinephric fat stranding, not definitely evident on prior 2012 exam. May indicate acute renal inflammation, chronic postinflammatory changes, or may be a manifestation of the more generalized edema. No acute process otherwise. Fibroid uterus, also previously reported. Nonobstructive right renal calculus, also previously demonstrated. Other renal calcifications as described. Previously demonstrated right iliac chain adenopathy is no longer evident. -Bilateral basilar atelectasis, possible minimal consolidation/No acute process otherwise Fungemia -Bcx 04/22 1 C. glabrata (sensi pending) Fever, improving leukocytosis- worsened, now improving -u/a neg, ucx nTD ?PNA -CXR: Right basilar atelectasis and possibly infiltrate -sp cx p 04/25 SP PICC Dm2 HTN hx of R transmetatarsal amputation reported PNC allergy- however tolerates Amoxicillin per daughter Plan: -Continue Ceftriaxone # 11 and IV Daptomycin 8mg/kg qd abx d#11 (given persistent bacteremia and fevers), for polymicrobial (GBS, MRSA) L leg abscess, OM, bacteremia; duration for total of 42 days and Mycamine d# 7 for 2 weeks from 04/25; end date 05/08 Continue PO Flagyl d# 10/14 -weekly CBC, CMP, CPK -04/30 SP IV Vancomycin #7 -04/23 SP IV Vancomycin #2 and Clindamycin #2 -04/22 SP IV Aztreonam #2 -JOHN was cancelled due to loose upper incisor , given patient has now deferversced, repeat Bcx NTD; and leukocytosis improving and known source of bacteremia ok to not pursue JOHN at this point. She will received a total of 6 weeks for OM -f/u repeat 2 sets Bcx 04/28 -Ok to discharge to SNF with above regimen -f/u cx -monitor CBC/BMP, temperatures; Trend WBC and fever curve -wound care -weekly CBC, CMP, vanco through Discussed with RN, and primary team. Subjective Allergies: Coded Allergies: PENICILLINS (Verified Allergy, Severe, SWOLLEN BODY, 04/23/17) Per Daughter, patient has tolerated Amoxicillin Tolerated Ceftriaxone 04/22/17 Subjective afebrile in 48hrs leukocytosis improving JOHN cancelled due to loose tooth repeat bcx 04/28 NTD Objective Vital Signs Last 24 Hour Vital Signs Date Time Temp Pulse Resp B/P (MAP) Pulse Ox O2 Delivery O2 Flow Rate FiO2 05/02/17 11:56 98.6 91 20 124/74 99 Room Air 98.6 05/02/17 08:00 99.6 90 18 124/83 99 Room Air 99.6 05/02/17 04:00 97.0 90 20 127/75 91 97.0 3/23/18 00:00 98.6 89 20 111/60 98 98.6 05/01/17 20:00 98.2 87 18 123/71 99 98.2 05/01/17 16:10 98.1 86 19 125/78 Room Air 98.1 Height (Feet): 5 Height (Inches): 4.00 Weight (Pounds): 232 Objective General Appearance: WD/WN Lines, tubes and drains: peripheral HEENT: normocephalic, atraumatic Neck: non-tender, normal alignment Respiratory/Chest: chest wall non-tender, lungs clear Cardiovascular/Chest: normal peripheral pulses, normal rate Abdomen: normal bowel sounds, non tender Ext: R foot s/p metatarsal amputation- stump with no signs of infection L foot: dressings in place Laboratory Tests Test 05/02/17 06:15 White Blood Count 13.7 K/UL (4.8-10.8) H Red Blood Count 3.04 M/UL (4.20-5.40) L Hemoglobin 8.5 G/DL (12.0-16.0) L Hematocrit 26.5 % (37.0-47.0) L Mean Corpuscular Volume 87 FL (80-99) Mean Corpuscular Hemoglobin 27.8 PG (27.0-31.0) Mean Corpuscular Hemoglobin Concent 31.9 G/DL (32.0-36.0) L Red Cell Distribution Width 14.0 % (11.6-14.8) Platelet Count 249 K/UL (150-450) Mean Platelet Volume 7.5 FL (6.5-10.1) Neutrophils (%) (Auto) 81.4 % (45.0-75.0) H Lymphocytes (%) (Auto) 11.8 % (20.0-45.0) L Monocytes (%) (Auto) 5.9 % (1.0-10.0) Eosinophils (%) (Auto) 0.5 % (0.0-3.0) Basophils (%) (Auto) 0.6 % (0.0-2.0) Sodium Level 131 MMOL/L (136-145) L Potassium Level 4.9 MMOL/L (3.5-5.1) Chloride Level 101 MMOL/L (98-107) Carbon Dioxide Level 23 MMOL/L (21-32) Anion Gap 8 mmol/L (5-15) Blood Urea Nitrogen 18 mg/dL (7-18) Creatinine 2.0 MG/DL (0.55-1.30) H Estimat Glomerular Filtration Rate 31.5 mL/min (>60) Glucose Level 243 MG/DL (74-106) H Calcium Level 8.3 MG/DL (8.5-10.1) L Total Bilirubin 0.2 MG/DL (0.2-1.0) Aspartate Amino Transf (AST/SGOT) 8 U/L (15-37) L Alanine Aminotransferase (ALT/SGPT) 6 U/L (12-78) L Alkaline Phosphatase 71 U/L (46-116) Total Protein 6.4 G/DL (6.4-8.2) Albumin 1.2 G/DL (3.4-5.0) L Globulin 5.2 g/dL Albumin/Globulin Ratio 0.2 (1.0-2.7) L Current Medications Medications (Trade) Dose Ordered Sig/Artmeio Route PRN Reason Start Time Stop Time Status Last Admin Dose Admin Acetaminophen (Tylenol) 650 mg Q4H PRN ORAL fever (temp>100.5F) 04/21/17 18:15 05/21/17 18:14 04/24/17 16:47 Ceftriaxone Sodium 2 gm/ Sodium Chloride 55 ml @ 110 mls/hr Q24H IVPB 04/30/17 12:00 06/09/17 11:59 05/02/17 12:41 Chlorhexidine Gluconate (Nasreen-Hex 2%) 1 applic DAILY@2000 TOPIC 04/25/17 20:00 05/25/17 19:59 05/01/17 20:30 Daptomycin 850 mg/ Sodium Chloride 55 ml @ 100 mls/hr Q24H IV 05/01/17 06:00 05/08/17 23:59 05/02/17 06:09 Dextrose (Dextrose 50%) STAT PRN IV Hypoglycemia 04/21/17 18:15 05/21/17 18:14 Heparin Sodium (Porcine) (Heparin 5000 units/ml) 5,000 units EVERY 12 HOURS SUBQ 04/21/17 21:00 05/21/17 20:59 05/02/17 08:40 Insulin Aspart (NovoLOG) BEFORE MEALS AND HS SUBQ 3/12/18 21:00 05/21/17 20:59 05/02/17 12:46 Insulin Detemir (Levemir) 15 units Q12HR SUBQ 04/30/17 09:00 05/30/17 08:59 05/02/17 08:41 Lansoprazole (Prevacid) 30 mg DAILY ORAL 04/23/17 13:00 05/23/17 12:59 05/01/17 09:40 Micafungin Sodium 100 mg/Sodium Chloride 110 ml @ 110 mls/hr Q24H IVPB 04/26/17 17:00 05/03/17 16:59 05/01/17 18:24 Nateglinide (Starlix) 60 mg TIAC ORAL 04/28/17 11:30 05/28/17 11:29 05/01/17 06:07 Nitroglycerin (Ntg) 0.4 mg Q5M PRN SL Prn Chest Pain 04/21/17 18:15 05/21/17 18:14 Ondansetron HCl (Zofran) 4 mg Q6H PRN IVP Nausea & Vomiting 04/21/17 18:15 05/21/17 18:14 Polyethylene Glycol (Miralax) 17 gm DAILYPRN PRN ORAL Constipation 04/21/17 18:15 05/21/17 18:14 Faye Foy M.D. May 02, 2017 15:43
[2017-05-02 16:00] VITALS: BP 142/79
[2017-05-02] MEDS: Micafungin 100 MG in NS 110 ML IVPB SCH (17:06)
--- NOTE | 2017-05-02 18:00 | Cardiology Progress Note ---
Assessment/Plan Assessment/Plan 1. Persistent bacteremia with Streptococcus agalactiae . 2. Fungemia. 3. Left leg abscess. 4. Anemia. 5. Renal insufficiency. 6. Diabetes. 7. Diabetic nephropathy. 8. Loose upper incisor tooth tami cancelled due to loose upper incisor reepatr cx neg contineu on iv abx no chf on exam at this time Subjective Cardiovascular: Denies: chest pain, lightheadedness, palpitations Respiratory: Reports: shortness of breath - when she got upset Gastrointestinal/Abdominal: Denies: abdominal pain Genitourinary: Denies: burning Objective Last 24 Hour Vital Signs Date Time Temp Pulse Resp B/P (MAP) Pulse Ox O2 Delivery O2 Flow Rate FiO2 05/02/17 16:00 99.9 93 20 142/79 98 Room Air 99.9 05/02/17 11:56 98.6 91 20 124/74 99 Room Air 98.6 05/02/17 08:00 99.6 90 18 124/83 99 Room Air 99.6 05/02/17 04:00 97.0 90 20 127/75 91 97.0 05/02/17 00:00 98.6 89 20 111/60 98 98.6 05/01/17 20:00 98.2 87 18 123/71 99 98.2 General Appearance: no apparent distress, alert Neck: supple Cardiovascular: normal rate, regular rhythm Respiratory/Chest: lungs clear Abdomen: normal bowel sounds, non tender, soft Extremities: no swelling Intake and Output 05/01/17 05/02/17 19:00 07:00 Intake Total 55 ml 210 ml Output Total 1200 ml 600 ml Balance -1145 ml -390 ml IV Total 55 ml 210 ml Output Urine Total 1200 ml 600 ml Laboratory Tests Test 05/02/17 06:15 White Blood Count 13.7 K/UL (4.8-10.8) H Red Blood Count 3.04 M/UL (4.20-5.40) L Hemoglobin 8.5 G/DL (12.0-16.0) L Hematocrit 26.5 % (37.0-47.0) L Mean Corpuscular Volume 87 FL (80-99) Mean Corpuscular Hemoglobin 27.8 PG (27.0-31.0) Mean Corpuscular Hemoglobin Concent 31.9 G/DL (32.0-36.0) L Red Cell Distribution Width 14.0 % (11.6-14.8) Platelet Count 249 K/UL (150-450) Mean Platelet Volume 7.5 FL (6.5-10.1) Neutrophils (%) (Auto) 81.4 % (45.0-75.0) H Lymphocytes (%) (Auto) 11.8 % (20.0-45.0) L Monocytes (%) (Auto) 5.9 % (1.0-10.0) Eosinophils (%) (Auto) 0.5 % (0.0-3.0) Basophils (%) (Auto) 0.6 % (0.0-2.0) Sodium Level 131 MMOL/L (136-145) L Potassium Level 4.9 MMOL/L (3.5-5.1) Chloride Level 101 MMOL/L (98-107) Carbon Dioxide Level 23 MMOL/L (21-32) Anion Gap 8 mmol/L (5-15) Blood Urea Nitrogen 18 mg/dL (7-18) Creatinine 2.0 MG/DL (0.55-1.30) H Estimat Glomerular Filtration Rate 31.5 mL/min (>60) Glucose Level 243 MG/DL (74-106) H Calcium Level 8.3 MG/DL (8.5-10.1) L Total Bilirubin 0.2 MG/DL (0.2-1.0) Aspartate Amino Transf (AST/SGOT) 8 U/L (15-37) L Alanine Aminotransferase (ALT/SGPT) 6 U/L (12-78) L Alkaline Phosphatase 71 U/L (46-116) Total Protein 6.4 G/DL (6.4-8.2) Albumin 1.2 G/DL (3.4-5.0) L Globulin 5.2 g/dL Albumin/Globulin Ratio 0.2 (1.0-2.7) L ELEAZAR JOSÉ May 02, 2017 18:00
[2017-05-02 20:00] VITALS: BP 117/74
[2017-05-02] MEDS: Dyna-Hex 2% Top Sol 2oz TOPIC SCH (21:23)
[2017-05-02] MEDS: HYDROcodone/Acetamin 10/325 tab ORAL PRN (21:30)
[2017-05-03] VITALS (7 sets, daily range): BP systolic 112–138; BP diastolic 64–80
[2017-05-03] MEDS: Nateglinide 60mg tab ORAL SCH (06:30)
[2017-05-03] MEDS: NovoLOG Insulin Flexpen SUBQ SCH ×7 (06:33→21:00)
[2017-05-03 07:32] LABS: ANION GAP 6 mmol/L (5-15); BLOOD UREA NITROGEN 22 mg/dL (7-18); CALCIUM 8.6 MG/DL (8.5-10.1); CARBON DIOXIDE 24 MMOL/L (21-32); CHLORIDE 104 MMOL/L (98-107); POTASSIUM 4.4 MMOL/L (3.5-5.1); SODIUM 133 MMOL/L (136-145)
[2017-05-03] MEDS ORDERED: DAPTOMYCIN IV SCH ×2 (08:00→10:00)
[2017-05-03] MEDS ORDERED: NS IV SCH ×2 (08:00→10:00)
[2017-05-03 08:21] LABS: BASOPHILS % (AUTO) 0.5 % (0.0-2.0); EOSINOPHILS % (AUTO) 0.4 % (0.0-3.0); HEMATOCRIT 26.3 % (37.0-47.0); HEMOGLOBIN 8.4 G/DL (12.0-16.0); LYMPHOCYTES % (AUTO) 11.8 % (20.0-45.0); MEAN CORPUSCULAR VOLUME 87 FL (80-99); MONOCYTES % (AUTO) 6.2 % (1.0-10.0); PLATELET COUNT 255 K/UL (150-450); RED BLOOD COUNT 3.03 M/UL (4.20-5.40); RED CELL DISTRIBUTION WIDTH 14.4 % (11.6-14.8); WHITE BLOOD COUNT 14.9 K/UL (4.8-10.8)
--- NOTE | 2017-05-03 08:25 | General Progress Note ---
Assessment/Plan Problem List: (1) Cellulitis, leg ICD Codes: L03.119 - Cellulitis of unspecified part of limb SNOMED: 233498594 (2) Diabetes mellitus ICD Codes: E11.9 - Type 2 diabetes mellitus without complications SNOMED: 68246250 (3) CKD (chronic kidney disease) ICD Codes: N18.9 - Chronic kidney disease, unspecified SNOMED: 525097985 (4) Diabetic nephropathy ICD Codes: E11.21 - Type 2 diabetes mellitus with diabetic nephropathy SNOMED: 75546923, 169736921 (5) Anemia in chronic kidney disease ICD Codes: N18.9 - Chronic kidney disease, unspecified; D63.1 - Anemia in chronic kidney disease SNOMED: 806427979, 325795423 Assessment/Plan continue Levemir to 15 units bid DC Starlix 60 mg ac tid add Novolog 6 units ac tid continue NISS ac / hs Subjective Allergies: Coded Allergies: PENICILLINS (Verified Allergy, Severe, SWOLLEN BODY, 04/23/17) Per Daughter, patient has tolerated Amoxicillin Tolerated Ceftriaxone 04/22/17 All Systems: reviewed and negative except above Subjective events noted interval notes reviewed fasting glucose controlled meal time glucose elevated - she's been refusing Starlix w/ meal Objective Last 24 Hour Vital Signs Date Time Temp Pulse Resp B/P (MAP) Pulse Ox O2 Delivery O2 Flow Rate FiO2 05/03/17 04:00 98.1 91 20 138/75 98 98.1 05/03/17 00:00 99.1 72 19 112/65 99 Room Air 99.1 05/02/17 20:00 100.1 96 19 117/74 100 Room Air 100.1 05/02/17 16:00 99.9 93 20 142/79 98 Room Air 99.9 05/02/17 11:56 98.6 91 20 124/74 99 Room Air 98.6 Intake and Output 05/02/17 05/03/17 19:00 07:00 Intake Total 1040 ml 1440 ml Output Total 700 ml Balance 1040 ml 740 ml Intake Oral 1040 ml 1440 ml Output Urine Total 700 ml # Voids 2 # Bowel Movements 1 Laboratory Tests 05/03/17 06:20: White Blood Count 14.9H, Red Blood Count 3.03L, Hemoglobin 8.4L, Hematocrit 26.3L, Mean Corpuscular Volume 87, Mean Corpuscular Hemoglobin 27.7, Mean Corpuscular Hemoglobin Concent 31.9L, Red Cell Distribution Width 14.4, Platelet Count 255, Mean Platelet Volume 7.0, Neutrophils (%) (Auto) 81.0H, Lymphocytes (%) (Auto) 11.8L, Monocytes (%) (Auto) 6.2, Eosinophils (%) (Auto) 0.4, Basophils (%) (Auto) 0.5, Sodium Level 133L, Potassium Level 4.4, Chloride Level 104, Carbon Dioxide Level 24, Anion Gap 6, Blood Urea Nitrogen 22H, Creatinine 2.0H, Estimat Glomerular Filtration Rate 31.5, Glucose Level 161H, Calcium Level 8.6, C-Reactive Protein, Quantitative 12.8H Height (Feet): 5 Height (Inches): 4.00 Weight (Pounds): 232 General Appearance: no apparent distress Neck: normal alignment Cardiovascular: normal rate Respiratory/Chest: lungs clear Abdomen: normal bowel sounds Pelvis: normal external exam Extremities: other - right TMA - left foot dressed Edema: no edema noted Arm (L), no edema noted Arm (R), no edema noted Leg (L), no edema noted Leg (R), no edema noted Pedal (L), no edema noted Pedal (R), no edema noted Generalized Objective Current Medications Medications (Trade) Dose Ordered Sig/Artemio Route PRN Reason Start Time Stop Time Status Last Admin Dose Admin Acetaminophen (Tylenol) 650 mg Q4H PRN ORAL fever (temp>100.5F) 04/21/17 18:15 05/21/17 18:14 04/24/17 16:47 Chlorhexidine Gluconate (Nasreen-Hex 2%) 1 applic DAILY@1999 TOPIC 04/25/17 20:00 05/25/17 19:59 04/29/17 20:08 Dextrose (Dextrose 50%) STAT PRN IV Hypoglycemia 04/21/17 18:15 05/21/17 18:14 Heparin Sodium (Porcine) (Heparin 5000 units/ml) 5,000 units EVERY 12 HOURS SUBQ 04/21/17 21:00 05/21/17 20:59 04/29/17 20:09 Insulin Aspart (NovoLOG) BEFORE MEALS AND HS SUBQ 04/21/17 21:00 05/21/17 20:59 04/29/17 17:21 Insulin Detemir (Levemir) 20 units Q12HR SUBQ 04/29/17 09:00 05/29/17 08:59 04/29/17 09:09 Lansoprazole (Prevacid) 30 mg DAILY ORAL 04/23/17 13:00 05/23/17 12:59 04/29/17 09:05 Metronidazole (Flagyl) 500 mg Q8HR ORAL 04/23/17 14:00 04/30/17 13:59 04/29/17 20:09 Micafungin Sodium 100 mg/Sodium Chloride 110 ml @ 110 mls/hr Q24H IVPB 04/26/17 17:00 05/03/17 16:59 04/29/17 17:19 Nateglinide (Starlix) 60 mg TIAC ORAL 04/28/17 11:30 05/28/17 11:29 04/29/17 17:18 Nitroglycerin (Ntg) 0.4 mg Q5M PRN SL Prn Chest Pain 04/21/17 18:15 05/21/17 18:14 Ondansetron HCl (Zofran) 4 mg Q6H PRN IVP Nausea & Vomiting 04/21/17 18:15 05/21/17 18:14 Polyethylene Glycol (Miralax) 17 gm DAILYPRN PRN ORAL Constipation 04/21/17 18:15 05/21/17 18:14 Potassium Chloride (K-Dur) 40 meq DAILY ORAL 04/25/17 13:00 05/25/17 12:59 04/29/17 09:05 Vancomycin HCl (Vanco rx to dose) 1 ea DAILY PRN MISC Per rx protocol 04/24/17 16:00 05/24/17 15:59 Vancomycin HCl 1 gm/Dextrose 275 ml @ 183.708 mls/hr Q24H IVPB 04/26/17 06:00 05/01/17 05:59 04/30/17 05:57 Item Value Date Time Bedside Blood Glucose 167 mg/dl H 04/30/17 0534 Bedside Blood Glucose 188 mg/dl H 04/29/17 2100 Bedside Blood Glucose 160 mg/dl H 04/29/17 1721 Bedside Blood Glucose 124 mg/dl H 04/29/17 1251 Bedside Blood Glucose 83 mg/dl 04/29/17 0909 Bedside Blood Glucose 83 mg/dl 04/29/17 0630 ANSELMO TOMLIN May 03, 2017 08:25
[2017-05-03] MEDS: Heparin 5000 units/ml inj SUBQ SCH ×2 (08:44→20:37)
[2017-05-03] MEDS: Levemir Flexpen SUBQ SCH ×2 (10:30→20:36)
[2017-05-03] MEDS ORDERED: NOVOLOG100 UNITS1 SUBQ ×2 (11:42)
[2017-05-03] MEDS ORDERED: LEVEMIR FL100 UNIT/1 SUBQ (11:42)
[2017-05-03] MEDS ORDERED: METRONIDAZOLE500 MG ORAL (11:42)
[2017-05-03] MEDS ORDERED: CEFTRIAXONE2 G1 IJ (11:42)
[2017-05-03] MEDS ORDERED: LANSOPRAZOLE30 MG ORAL (11:42)
[2017-05-03] MEDS ORDERED: DAPTOMYCIN500 MG IV (11:42)
[2017-05-03] MEDS ORDERED: MYCAMINE100 M1 IVPB (11:42)
--- NOTE | 2017-05-03 11:45 | Discharge Instructions ---
Discharge Instructions Discharge Instructions Follow up with: AT THE FACILITY Diet: diabetic calorie control Activity: as tolerated - TO W/CHAIR KILEY Special Instructions WEEKLY CBC CMP CPK WHILE ON ABX WOUND CARE AND DRESSING CHANGE For Congestive Heart Failure Reminder Report to your physician any weight gain of 5 pounds or more in one week. Jhonathan ([facility])Sarah NP May 03, 2017 11:45
--- NOTE | 2017-05-03 11:49 | Infectious Diseases Prog Note ---
Assessment/Plan Assessment/Plan Sepsis , resolving L Leg cellulitis., large abscess (polymicrobial), infected ankle wound and OM c/ w polymicrobial bacteremia- improving -MRI L leg: Positive for osteomyelitis of the distal fibula, with evidence of bony destruction. More subtle marrow changes as described in the talus and calcaneus, also suspicious for osteomyelitis. Evidence of soft tissue cellulitis both laterally and medially. No drainable abscess. Abnormal peroneus longus tendon, may indicate inflammation or infection. Possible damage to the distal peroneus brevis tendon - s/p bedside I+D 04/23: large abscess in left distal lateral leg down to muscle and tendon. large area of fluctuance. 50-75cc of pus evacuated; wound cx +1 K.pna (grissom S), +4 E. fecalis (grissom S) -Xray R tibia/fibula/ankle: Evidence of multiple lateral soft tissue ulcers in the distal leg and ankle. Evidence of destructive change of the distal fibula. This is highly suspicious for acute osteomyelitis. No acute bony trauma -wound cx from purulent discharge 04/22 #1: +2 MRSA, <1+ E. aerogens (S Ceftriaxone), +4 GBS; #2 +2 MRSA (S tetracycline, bactrim, vanco), +4 E. aerogens (S Ceftriaxone), E fecalis (grissom S) -ESR 116, CRP 27.7> 04/26 >70; 04/30 14.7> 12.8 05/03 Polymicrobial Gram positive bacteremia-> persistent Gram positive bacteremia, now clearing -Bcx 04/21 2/4 + GBS, 2/4 CoNS, 1/4MRSA, Bcx 04/22 1/4 yeast; 04/25 Bcx NTD; Bcx 2/4 S. epi (from same bottle) ; 04/28 BCx NTD -Echo:Limited (poor acoustic views)- no vegetations, no significant valve abnormalities -CT chest/abd/p wo: Edema of the subcutaneous fat, mild. Bilateral perinephric fat stranding, not definitely evident on prior 2012 exam. May indicate acute renal inflammation, chronic postinflammatory changes, or may be a manifestation of the more generalized edema. No acute process otherwise. Fibroid uterus, also previously reported. Nonobstructive right renal calculus, also previously demonstrated. Other renal calcifications as described. Previously demonstrated right iliac chain adenopathy is no longer evident. -Bilateral basilar atelectasis, possible minimal consolidation/No acute process otherwise Fungemia -Bcx 04/22 1 C. glabrata (sensi pending) Fever, improving leukocytosis- worsened, now improving -u/a neg, ucx nTD ?PNA -CXR: Right basilar atelectasis and possibly infiltrate -sp cx p 04/25 SP PICC Dm2 HTN hx of R transmetatarsal amputation reported PNC allergy- however tolerates Amoxicillin per daughter Plan: -Continue Ceftriaxone # 12 and IV Daptomycin 8mg/kg qd abx d#12 (given persistent bacteremia and fevers), for polymicrobial (GBS, MRSA) L leg abscess, OM, bacteremia; duration for total of 42 days --Ok to switch to IV Vancomycin while on the hospital given Dapto shortage and Mycamine d# 8 for 2 weeks from 04/25; end date 05/08 Continue PO Flagyl d# 11/14 -weekly CBC, CMP, CPK -04/30 SP IV Vancomycin #7 -04/23 SP IV Vancomycin #2 and Clindamycin #2 -04/22 SP IV Aztreonam #2 -JOHN was cancelled due to loose upper incisor , given patient has now deferversced, repeat Bcx NTD; and leukocytosis improving and known source of bacteremia ok to not pursue JOHN at this point. She will received a total of 6 weeks for OM -f/u repeat 2 sets Bcx 04/28 -Ok to discharge to SNF with above regimen- patient with some low grade fevers and leukocytosis which has significantly improved however clinically stable, vitals sing stable, feeling better no repeat Bcx NTD. SUspect low grade fevers are 2ry to her underlying process. Will continue to be on prolonged abx therapy. -f/u cx -monitor CBC/BMP, temperatures; Trend WBC and fever curve -wound care -weekly CBC, CMP, vanco through Discussed with RN, and primary team. Subjective Allergies: Coded Allergies: PENICILLINS (Verified Allergy, Severe, SWOLLEN BODY, 04/23/17) Per Daughter, patient has tolerated Amoxicillin Tolerated Ceftriaxone 04/22/17 Subjective Tm 100.4 WBC b/t 13-14 but overall improved Bcx NTD Objective Vital Signs Last 24 Hour Vital Signs Date Time Temp Pulse Resp B/P (MAP) Pulse Ox O2 Delivery O2 Flow Rate FiO2 05/03/17 08:00 100.4 98 20 116/69 98 Room Air 100.4 05/03/17 04:00 98.1 91 20 138/75 98 98.1 05/03/17 00:00 99.1 72 19 112/65 99 Room Air 99.1 05/02/17 20:00 100.1 96 19 117/74 100 Room Air 100.1 05/02/17 16:00 99.9 93 20 142/79 98 Room Air 99.9 05/02/17 11:56 98.6 91 20 124/74 99 Room Air 98.6 Height (Feet): 5 Height (Inches): 4.00 Weight (Pounds): 232 Objective General Appearance: WD/WN Lines, tubes and drains: peripheral HEENT: normocephalic, atraumatic Neck: non-tender, normal alignment Respiratory/Chest: chest wall non-tender, lungs clear Cardiovascular/Chest: normal peripheral pulses, normal rate Abdomen: normal bowel sounds, non tender Ext: R foot s/p metatarsal amputation- stump with no signs of infection L foot: dressings in place Laboratory Tests Test 05/03/17 06:20 White Blood Count 14.9 K/UL (4.8-10.8) H Red Blood Count 3.03 M/UL (4.20-5.40) L Hemoglobin 8.4 G/DL (12.0-16.0) L Hematocrit 26.3 % (37.0-47.0) L Mean Corpuscular Volume 87 FL (80-99) Mean Corpuscular Hemoglobin 27.7 PG (27.0-31.0) Mean Corpuscular Hemoglobin Concent 31.9 G/DL (32.0-36.0) L Red Cell Distribution Width 14.4 % (11.6-14.8) Platelet Count 255 K/UL (150-450) Mean Platelet Volume 7.0 FL (6.5-10.1) Neutrophils (%) (Auto) 81.0 % (45.0-75.0) H Lymphocytes (%) (Auto) 11.8 % (20.0-45.0) L Monocytes (%) (Auto) 6.2 % (1.0-10.0) Eosinophils (%) (Auto) 0.4 % (0.0-3.0) Basophils (%) (Auto) 0.5 % (0.0-2.0) Sodium Level 133 MMOL/L (136-145) L Potassium Level 4.4 MMOL/L (3.5-5.1) Chloride Level 104 MMOL/L (98-107) Carbon Dioxide Level 24 MMOL/L (21-32) Anion Gap 6 mmol/L (5-15) Blood Urea Nitrogen 22 mg/dL (7-18) H Creatinine 2.0 MG/DL (0.55-1.30) H Estimat Glomerular Filtration Rate 31.5 mL/min (>60) Glucose Level 161 MG/DL (74-106) H Calcium Level 8.6 MG/DL (8.5-10.1) C-Reactive Protein, Quantitative 12.8 mg/dL (0.00-0.90) H Current Medications Medications (Trade) Dose Ordered Sig/Artemio Route PRN Reason Start Time Stop Time Status Last Admin Dose Admin Acetaminophen (Tylenol) 650 mg Q4H PRN ORAL fever (temp>100.5F) 04/21/17 18:15 05/21/17 18:14 04/24/17 16:47 Acetaminophen/ Hydrocodone Bitart ([place] 10325) 1 tab Q6H PRN ORAL For Pain 05/02/17 20:45 05/09/17 20:44 05/02/17 21:30 Ceftriaxone Sodium 2 gm/ Sodium Chloride 55 ml @ 110 mls/hr Q24H IVPB 04/30/17 12:00 06/09/17 11:59 05/02/17 12:41 Chlorhexidine Gluconate (Nasreen-Hex 2%) 1 applic DAILY@2000 TOPIC 04/25/17 20:00 05/25/17 19:59 05/02/17 21:23 Daptomycin 850 mg/ Sodium Chloride 110 ml @ 200 mls/hr Q24H IV 05/03/17 10:00 05/10/17 09:59 Dextrose (Dextrose 50%) STAT PRN IV Hypoglycemia 04/21/17 18:15 05/21/17 18:14 Heparin Sodium (Porcine) (Heparin 5000 units/ml) 5,000 units EVERY 12 HOURS SUBQ 04/21/17 21:00 05/21/17 20:59 05/03/17 08:44 Insulin Aspart (NovoLOG) BEFORE MEALS AND HS SUBQ 04/21/17 21:00 05/21/17 20:59 05/03/17 06:33 Insulin Aspart (NovoLOG) 6 units NOVOTIAC SUBQ 05/03/17 11:50 06/02/17 11:49 Insulin Detemir (Levemir) 15 units Q12HR SUBQ 04/30/17 09:00 05/30/17 08:59 05/02/17 21:25 Lansoprazole (Prevacid) 30 mg DAILY ORAL 04/23/17 13:00 05/23/17 12:59 05/03/17 08:42 Micafungin Sodium 100 mg/Sodium Chloride 110 ml @ 110 mls/hr Q24H IVPB 04/26/17 17:00 05/03/17 16:59 05/02/17 17:06 Nitroglycerin (Ntg) 0.4 mg Q5M PRN SL Prn Chest Pain 04/21/17 18:15 05/21/17 18:14 Ondansetron HCl (Zofran) 4 mg Q6H PRN IVP Nausea & Vomiting 04/21/17 18:15 05/21/17 18:14 Polyethylene Glycol (Miralax) 17 gm DAILYPRN PRN ORAL Constipation 04/21/17 18:15 05/21/17 18:14 Faye Foy M.D. May 03, 2017 11:49
--- NOTE | 2017-05-03 11:51 | Pulmonology Progress Note ---
Assessment/Plan Assessment/Plan ASSESSMENT Sepsis with persistent bacteremia fungemia L leg cellulitis L leg abscess s/p I&D 04/23 OM L leg distal fibula Possible PNA DM OOC ( [id number]) HTN anemia of chronic kidney disease, s/p blood transfusion ARF on CKD Diabetic nephropathy e/lyte imbalance morbid obesity MDD adjustment disorder Hx of R transmetatarsal amputation PLAN OF CARE MS floor abx and Mycamine ID follows Last blood cx 04/28 prel negative Need total of 6 weeks of abx ECHO with pEF 60-65%. No evidence of vegetation JOHN cancelled due to loose upper incisor ID felt that JOHN could be avoided at this time Venous Duplex negative X ray L T/F no acute fx X ray L ankle suspicious for OM; MRI L ankle + osteo CXR with possible infiltrate CT chest bilateral atelectasis, possible minimal consolidation CT A/P negative for acute pathology nephro follows Renal US no hydro, increased renal echogenicity c/w medical renal disease 24hr ur >3 gm protein creat down to 2.0 from initial 3 Endo follows, on levemir and premeal Novolog and SSI prn, off Starlix Monitor HH , transfuse prn anemia w/up pain management pain specialist follows DVT GI prophylaxis ID cleared for dc dc to SNF on IV abx as specififed by ID ( see med recon) patient prefers [facility] case discussed and evaluated by supervising physician Subjective Allergies: Coded Allergies: PENICILLINS (Verified Allergy, Severe, SWOLLEN BODY, 04/23/17) Per Daughter, patient has tolerated Amoxicillin Tolerated Ceftriaxone 04/22/17 Subjective leukocytosis trending down, JOHN cancelled for 05/01 due to loose teeth patient declined PT, stating that she can herself move from bed to w/c Objective Last 24 Hour Vital Signs Date Time Temp Pulse Resp B/P (MAP) Pulse Ox O2 Delivery O2 Flow Rate FiO2 05/03/17 08:00 100.4 98 20 116/69 98 Room Air 100.4 05/03/17 04:00 98.1 91 20 138/75 98 98.1 05/03/17 00:00 99.1 72 19 112/65 99 Room Air 99.1 05/02/17 20:00 100.1 96 19 117/74 100 Room Air 100.1 05/02/17 16:00 99.9 93 20 142/79 98 Room Air 99.9 05/02/17 11:56 98.6 91 20 124/74 99 Room Air 98.6 Intake and Output 05/02/17 05/03/17 19:00 07:00 Intake Total 1040 ml 1440 ml Output Total 700 ml Balance 1040 ml 740 ml Intake Oral 1040 ml 1440 ml Output Urine Total 700 ml # Voids 2 # Bowel Movements 1 Objective General Appearance: no acute distress, A/A/O x 3 A female HEENT: normocephalic, atraumatic, anicteric Respiratory/Chest: lungs clear, no respiratory distress Cardiovascular: normal rate, no JVD, other - PUICC RUE intact Abdomen: normal bowel sounds, soft, non tender - obese, non distended Extremities: other - R transmetatarsal amputation, stump cleaned ; Left leg with dressing C/D/I Neurologic/Psychiatric: w/chair bound , alert, oriented x 3, responsive Laboratory Tests 05/03/17 06:20: White Blood Count 14.9H, Red Blood Count 3.03L, Hemoglobin 8.4L, Hematocrit 26.3L, Mean Corpuscular Volume 87, Mean Corpuscular Hemoglobin 27.7, Mean Corpuscular Hemoglobin Concent 31.9L, Red Cell Distribution Width 14.4, Platelet Count 255, Mean Platelet Volume 7.0, Neutrophils (%) (Auto) 81.0H, Lymphocytes (%) (Auto) 11.8L, Monocytes (%) (Auto) 6.2, Eosinophils (%) (Auto) 0.4, Basophils (%) (Auto) 0.5, Sodium Level 133L, Potassium Level 4.4, Chloride Level 104, Carbon Dioxide Level 24, Anion Gap 6, Blood Urea Nitrogen 22H, Creatinine 2.0H, Estimat Glomerular Filtration Rate 31.5, Glucose Level 161H, Calcium Level 8.6, C-Reactive Protein, Quantitative 12.8H Current Medications Medications (Trade) Dose Ordered Sig/Artemio Route PRN Reason Start Time Stop Time Status Last Admin Dose Admin Acetaminophen (Tylenol) 650 mg Q4H PRN ORAL fever (temp>100.5F) 04/21/17 18:15 05/21/17 18:14 04/24/17 16:47 Acetaminophen/ Hydrocodone Bitart ([place] 10/325) 1 tab Q6H PRN ORAL For Pain 05/02/17 20:45 05/09/17 20:44 05/02/17 21:30 Ceftriaxone Sodium 2 gm/ Sodium Chloride 55 ml @ 110 mls/hr Q24H IVPB 04/30/17 12:00 06/09/17 11:59 05/02/17 12:41 Chlorhexidine Gluconate (Nasreen-Hex 2%) 1 applic DAILY@2000 TOPIC 04/25/17 20:00 05/25/17 19:59 05/02/17 21:23 Daptomycin 850 mg/ Sodium Chloride 110 ml @ 200 mls/hr Q24H IV 05/03/17 10:00 05/10/17 09:59 Dextrose (Dextrose 50%) STAT PRN IV Hypoglycemia 04/21/17 18:15 05/21/17 18:14 Heparin Sodium (Porcine) (Heparin 5000 units/ml) 5,000 units EVERY 12 HOURS SUBQ 04/21/17 21:00 05/21/17 20:59 05/03/17 08:44 Insulin Aspart (NovoLOG) BEFORE MEALS AND HS SUBQ 04/21/17 21:00 05/21/17 20:59 05/03/17 06:33 Insulin Aspart (NovoLOG) 6 units NOVOTIAC SUBQ 05/03/17 11:50 06/02/17 11:49 Insulin Detemir (Levemir) 15 units Q12HR SUBQ 04/30/17 09:00 05/30/17 08:59 05/02/17 21:25 Lansoprazole (Prevacid) 30 mg DAILY ORAL 04/23/17 13:00 05/23/17 12:59 05/03/17 08:42 Micafungin Sodium 100 mg/Sodium Chloride 110 ml @ 110 mls/hr Q24H IVPB 04/26/17 17:00 05/03/17 16:59 05/02/17 17:06 Nitroglycerin (Ntg) 0.4 mg Q5M PRN SL Prn Chest Pain 04/21/17 18:15 05/21/17 18:14 Ondansetron HCl (Zofran) 4 mg Q6H PRN IVP Nausea & Vomiting 04/21/17 18:15 05/21/17 18:14 Polyethylene Glycol (Miralax) 17 gm DAILYPRN PRN ORAL Constipation 04/21/17 18:15 05/21/17 18:14 Jhonathan ([facility])Sarah NP May 03, 2017 11:51
[2017-05-03 12:38] LABS: FERRITIN 424 NG/ML (8-388)
[2017-05-03 12:49] LABS: IRON 18 ug/dL (50-175); TOTAL IRON BINDING CAPACITY 68 ug/dL (250-450)
[2017-05-03 12:51] LABS: % IRON SATURATION 26 % (15-50)
[2017-05-03] MEDS: cefTRIAXone 2 GM in NS 55 ML IVPB SCH (13:26)
[2017-05-03] MEDS ORDERED: Vancomycin 1gm in D5W 275ml IVPB SCH (14:00)
--- NOTE | 2017-05-03 14:09 | Nephrology Progress Note ---
Assessment/Plan Problem List: (1) CKD (chronic kidney disease) (2) Diabetic nephropathy (3) Anemia in chronic kidney disease Assessment Renal Assessment: Renal failure- ? Diabetic nephropathy , CKD cr up to 2 HypoAlbuminemia r/o Nephrotic State Other: rising WBCs Sepsis due to L Leg cellulitis/abscess c/w bacteremia- r/o Strep necrotizing infection- rising WBCs Fever/leukocytosis Dm2 HTN hx of R transmetatarsal amputation reported PNC allergy- Plan Plan: Per ID 24 H urine protein over 3 grams K supplement Anemia li avoid nephrotoxics per orders Subjective ROS Limited/Unobtainable: No Constitutional: Reports: malaise Objective Objective Last 24 Hour Vital Signs Date Time Temp Pulse Resp B/P (MAP) Pulse Ox O2 Delivery O2 Flow Rate FiO2 05/03/17 12:45 99.9 90 20 132/75 100 Room Air 99.9 05/03/17 08:00 100.4 98 20 116/69 98 Room Air 100.4 05/03/17 04:00 98.1 91 20 138/75 98 98.1 05/03/17 00:00 99.1 72 19 112/65 99 Room Air 99.1 05/02/17 20:00 100.1 96 19 117/74 100 Room Air 100.1 05/02/17 16:00 99.9 93 20 142/79 98 Room Air 99.9 Intake and Output 05/02/17 05/03/17 19:00 07:00 Intake Total 1040 ml 1440 ml Output Total 700 ml Balance 1040 ml 740 ml Intake Oral 1040 ml 1440 ml Output Urine Total 700 ml # Voids 2 # Bowel Movements 1 Laboratory Tests 05/03/17 06:20: White Blood Count 14.9H, Red Blood Count 3.03L, Hemoglobin 8.4L, Hematocrit 26.3L, Mean Corpuscular Volume 87, Mean Corpuscular Hemoglobin 27.7, Mean Corpuscular Hemoglobin Concent 31.9L, Red Cell Distribution Width 14.4, Platelet Count 255, Mean Platelet Volume 7.0, Neutrophils (%) (Auto) 81.0H, Lymphocytes (%) (Auto) 11.8L, Monocytes (%) (Auto) 6.2, Eosinophils (%) (Auto) 0.4, Basophils (%) (Auto) 0.5, Sodium Level 133L, Potassium Level 4.4, Chloride Level 104, Carbon Dioxide Level 24, Anion Gap 6, Blood Urea Nitrogen 22H, Creatinine 2.0H, Estimat Glomerular Filtration Rate 31.5, Glucose Level 161H, Calcium Level 8.6, Iron Level 18L, Total Iron Binding Capacity 68L, Percent Iron Saturation 26, Unsaturated Iron Binding 50L, Ferritin 424H, C-Reactive Protein, Quantitative 12.8H, Vitamin B12 Level 888, Folate 4.2L Height (Feet): 5 Height (Inches): 4.00 Weight (Pounds): 232 General Appearance: no apparent distress Objective no change IBETH ROSAS May 03, 2017 14:09
[2017-05-03] MEDS: HYDROcodone/Acetamin 10/325 tab ORAL PRN (18:09)
[2017-05-03] MEDS: Dyna-Hex 2% Top Sol 2oz TOPIC SCH (20:34)
[2017-05-03] MEDS ORDERED: NS 275ml ONE (21:59)
[2017-05-03] MEDS ORDERED: Tubing IV Secondary IV ONE (21:59)
[2017-05-05] MEDS ORDERED: NS IV SCH (10:00)
[2017-05-05] MEDS ORDERED: DAPTOMYCIN IV SCH (10:00)
--- NOTE | 2017-05-05 19:13 | General Progress Note ---
Assessment/Plan Assessment/Plan anxiety d/o grief mdd -no meds at this time -provided st/ro Subjective Date patient seen: May 03, 2017 Allergies: Coded Allergies: PENICILLINS (Verified Allergy, Severe, SWOLLEN BODY, 04/23/17) Per Daughter, patient has tolerated Amoxicillin Tolerated Ceftriaxone 04/22/17 Subjective the pt is anxious. the pt is nad Objective Height (Feet): 5 Height (Inches): 4.00 Weight (Pounds): 232 Remington Kimbrough M.D. May 05, 2017 19:13
--- NOTE | 2017-05-07 07:40 | Discharge Summary ---
Discharge Summary Hospital Course Date of Admission Apr 21, 2017 at 16:16 Date of Discharge May 03, 2017 at 22:00 Admitting Diagnosis cellulitis HPI Delmi Everett is a 51 year old female who was admitted on Apr 21, 2017 at 16: 16 for Cellulitis Hospital Course dc summary #[id number] Discharge Discharge Disposition Patient was discharged to SNF/Subacute Facility(03) Discharge Instructions Discharge Instructions Follow up with: MD AT THE FACILITY Activity: as tolerated - TO W/CHAIR KILEY Special Instructions I have been assigned to complete a D/C Summary on this account. I was not involved in the patient management Sarah Ring NP ([facility]) May 07, 2017 07:40
--- NOTE | 2017-05-08 08:47 | Discharge Summary 2 SIG ---
DATE OF ADMISSION: 04/21/2017 DATE OF DISCHARGE: 05/03/2017 CONSULTANTS: 1. Wing Valadez M.D., Nephrology. 2. Manuel Rubi M.D., Infectious Disease. 3. Sandro Ramirez M.D., General Surgery. 4. Emlo Nicholson M.D., Endocrinology. 5. Remington Kimbrough M.D., Psychiatry. 6. Brayan Herron M.D., Cardiology. REASON FOR ADMISSION: This is a 51-year-old female with past medical history significant for hypertension, diabetes, morbid obesity, right transmetatarsal amputation, who presented to emergency room with complaint of left leg swelling. She initially had an ulcer which was evaluated by physician and was treated with topical medication. Vital signs were stable. The patient was afebrile. Noted leukocytosis, elevated creatinine, and blood sugar was critically elevated. Insulin and IV fluids were given. Lactic acid within normal limits at 1.5. WBC 17.6, anemia with hemoglobin of 10.7 and hematocrit 34.2. BUN 49 and creatinine 3.0. The patient admitted to Med/Surg with diagnoses of cellulitis of left leg, diabetes mellitus out of control, blood sugar was 708, but with normal CO2 and anion gap. HOSPITAL COURSE: The patient admitted to Med/Surg floor. The patient started on empiric antibiotic. ID closely followed. Surgery consult was requested since the patient not only had left leg cellulitis, but also demonstrated left leg infected wound and evidence of abscess. The patient subsequently had undergone on 04/23/2017, incision and drainage of the abscess with evacuation of approximately 50 to 75 mL of the fluid. Fluid culture revealed Klebsiella and enterococci. Prior wound culture showed MRSA and Enterobacter as well as the strep group B. Blood culture consistently positive with strep group B, Staph coag-negative, and Staph aureus as well as the Staph epidermidis. The patient was treated with antibiotic as per ID direction. Urine culture negative. Blood culture on 04/22/2017, showed evidence of [place]. The patient was on antibiotic, on Mycamine. ID closely followed. Last blood culture on 04/28/2017, negative. The patient had x-ray of the left tibia-fibula which revealed no acute fracture. X-ray of left ankle was suspicious for osteomyelitis. Subsequently, an MRI of the left ankle was done and it revealed evidence positive for osteomyelitis of the distal fibula with evidence of bony destruction. More subtle marrow changes described in the talus and calcaneus, also suspicious for osteomyelitis. Evidence of soft tissue cellulitis both laterally and medially. No drainable abscess. According to Infectious Disease doctor, the patient will be on antibiotics for six weeks total for treatment of osteomyelitis. Initially, echocardiogram was done which revealed ejection fraction of 60% to 65% and right ventricular systolic pressure of 21 with normal left ventricular chamber size, systolic function, and wall motion. Renal ultrasound revealed no evidence of hydronephrosis, but showed mildly increased renal echogenicity indicating medical renal disease. Venous duplex of bilateral lower extremity was negative. The patient had undergone placement of PICC line for long-term of antibiotics. Initially planned JOHN and echocardiogram, no evidence of vegetation. Initially planned JOHN due to persistent gram-positive bacteremia. Consumer Credit Counselor closely followed, however, JOHN was canceled due to the loose upper incisor. Per conversation with ID due to the sepsis with persistent gram-positive polymicrobial bacteremia due to osteomyelitis, wound culture showed the same organism. Last blood culture was negative. Leukocytosis improving. Unknown source of bacteremia, so ID cleared not to pursue JOHN at this point and the patient should receive total six weeks of osteomyelitis. Karate Teacher closely followed. Hemoglobin A1c not at goal. Hemoglobin A1c 14.8. Anti-glycemic regimen consisting with Levemir, premeal NovoLog, and sliding scale of insulin. Starlix was discontinued. Application Internship closely followed. A 24-hour urine showed more than 3 g of the protein. Creatinine down to 2 from initial 3. The patient likely had acute on chronic kidney disease. Nephrotoxics were avoided and electrolytes were closely monitored and corrected as needed. Anemia workup was consistent with anemia of chronic disease. The patient required transfusion of packed red blood cells after which hemoglobin and hematocrit remained at the baseline. Chest x-ray on 04/28/2017 showed right basilar atelectasis and possible infiltrate. The patient was on supplemental oxygen and pulmonary toilet. Antitussive provided as needed. Subsequently, the patient had CT of the chest was done, which revealed bilateral basilar atelectasis and minimal consolidation, but no acute process otherwise. The patient was treated with antibiotics. CT of the abdomen and pelvis revealed bilateral perinephric fat stranding, may be indicative of acute renal inflammation, chronic postinflammatory changes, or may be manifestation of the more generalized edema. No acute process otherwise. Urine culture was negative. It was felt that perinephric stranding probably due to generalized edema. ID cleared for discharge on the IV antibiotic to complete a total of 42 days/six weeks of antibiotics. DVT and GI prophylaxis provided. Pain management provided by pain specialist. The patient was stable for discharge to shelter facility on IV antibiotics as specified by ID. FINAL DIAGNOSES: Include: 1. Sepsis, present on admission with persistent bacteremia. 2. Fungemia. 3. Left leg cellulitis. 4. Left leg abscess, status post bedside I and D on 04/23/2017. 5. Osteomyelitis, left leg distal fibula. 6. Possible pneumonia. 7. Diabetes mellitus, out of control. 8. Hypertension. 9. Anemia of chronic disease, status post blood transfusion. 10. Acute renal failure on chronic kidney disease. 11. Diabetic nephropathy. 12. Electrolyte imbalance. 13. Morbid obesity. 14. Major depressive disorder. 15. Anxiety disorder. 16. Adjustment disorder. 17. History of right transmetatarsal amputation. Of note, psychiatrist had seen and evaluated the patient and diagnosed her with major depressive disorder and anxiety. No medication at this time, but provide therapeutic support and reality orientation. Continue close monitoring. DISCHARGE MEDICATIONS: See medication reconciliation list. The patient will need to complete antibiotics as long as they provided wound care of pocket as recommended by surgeon. The patient will be on 30 more days of ceftriaxone and daptomycin. DISCHARGE INSTRUCTIONS: The patient discharged to shelter facility for IV antibiotics and wound care. Follow up with medical doctor at the facility. Ruby Richmond M.D. I have been assigned to dictate discharge summary on this account and I was not involved in the patient's management. Sarah washingtonnay N.P. DR: Chiqui JOB#: [id number] CC:
== END 2017-05-03 22:00 | DRG 853 ==
LOC: EMR 16:14 → 4E 16:16 → EDBEDREQ 18:11 → 4E 04-29 14:46
PROC: 0J9P0ZZ Drainage of Left Lower Leg Subcutaneous Tissue and Fascia, Open Approach (ICD-10-PCS; principal; 2017-04-23)
PROC: B518ZZA Fluoroscopy of Superior Vena Cava, Guidance (ICD-10-PCS; 2017-04-25)
PROC: 02HV33Z Insertion of Infusion Device into Superior Vena Cava, Percutaneous Approach (ICD-10-PCS; 2017-04-25)
DX: A41.89 Other specified sepsis (principal); G93.40 Encephalopathy, unspecified; N17.9 Acute kidney failure, unspecified; J18.9 Pneumonia, unspecified organism; B49 Unspecified mycosis; L03.116 Cellulitis of left lower limb; M86.8X6 Other osteomyelitis, lower leg; M86.8X7 Other osteomyelitis, ankle and foot; E11.21 Type 2 diabetes mellitus with diabetic nephropathy; E87.8 Other disorders of electrolyte and fluid balance, not elsewhere classified; E11.621 Type 2 diabetes mellitus with foot ulcer; I12.9 Hypertensive chronic kidney disease with stage 1 through stage 4 chronic kidney disease, or unspecified chronic kidney disease; E11.22 Type 2 diabetes mellitus with diabetic chronic kidney disease; N18.9 Chronic kidney disease, unspecified; E11.69 Type 2 diabetes mellitus with other specified complication; E11.65 Type 2 diabetes mellitus with hyperglycemia; D63.1 Anemia in chronic kidney disease; E88.09 Other disorders of plasma-protein metabolism, not elsewhere classified; E66.01 Morbid (severe) obesity due to excess calories; Z68.39 Body mass index [BMI] 39.0-39.9, adult; F43.20 Adjustment disorder, unspecified; F32.9 Major depressive disorder, single episode, unspecified; K08.89 Other specified disorders of teeth and supporting structures; Z89.431 Acquired absence of right foot
CPT/HCPCS: 36415; 36569; 71045; 71250; 74176; 76770; 76937; 80048; 80053; 80061; 80202; 81001; 81050; 82550; 82607; 82728; 82746; 82962; 82977; 83036; 83540; 83550; 83605; 83735; 83880; 84100; 84156; 84443; 84550; 85007; 85025; 85651; 86140; 86850; 86900; 86901; 86920; 87040; 87070; 87081; 87086; 87181; 87205; 93306; 93970; 94640; 94664; 99285; C9399; J1815; J7620; J8499; S0077; S5561

== ENCOUNTER 2017-06-29 00:50 | Inpatient (IN) | payer MEDICARE, MEDICAID ==
[~2017-06-29] VITALS: Ht 152.4 cm; Wt 111.4 kg
[~2017-06-29 00:50] MED LIST changes: +CEFTRIAXONE2 G1 IJ; +DAPTOMYCIN500 MG IV; +LANSOPRAZOLE30 MG ORAL; +LEVEMIR FL100 UNIT/1 SUBQ; +METRONIDAZOLE500 MG ORAL; +MYCAMINE100 M1 IVPB; +NOVOLOG100 UNITS1 SUBQ
[2017-06-29] MEDS ORDERED: Sodium Chloride 500ML 500 ML IV ONE (00:52)
[2017-06-29] MEDS ORDERED: Isovue-370 150ml vial INJ PRN (01:00)
[2017-06-29] MEDS ORDERED: COLACE100 MG ORAL (01:22)
[2017-06-29] MEDS ORDERED: EPOGEN20000 UNI1 SUBQ (01:25)
[2017-06-29] MEDS ORDERED: FOLIC ACID1 MG ORAL (01:26)
[2017-06-29] MEDS ORDERED: LANSOPRAZOLE30 MG ORAL (01:27)
[2017-06-29] MEDS ORDERED: FERROUS SULFAT325 MG ORAL (01:27)
[2017-06-29] MEDS ORDERED: NORVASC5 MG ORAL (01:28)
[2017-06-29] MEDS ORDERED: RESTORIL15 MG ORAL (01:29)
[2017-06-29] MEDS ORDERED: ACETAMINOPHEN325 M1 ORAL (01:31)
[2017-06-29 01:52] LABS: BASOPHILS % (AUTO) 1.2 % (0.0-2.0); EOSINOPHILS % (AUTO) 3.7 % (0.0-3.0); HEMATOCRIT 31.2 % (37.0-47.0); HEMOGLOBIN 9.8 G/DL (12.0-16.0); LYMPHOCYTES % (AUTO) 28.6 % (20.0-45.0); MEAN CORPUSCULAR VOLUME 87 FL (80-99); MONOCYTES % (AUTO) 9.5 % (1.0-10.0); PLATELET COUNT 278 K/UL (150-450); RED BLOOD COUNT 3.61 M/UL (4.20-5.40); RED CELL DISTRIBUTION WIDTH 15.5 % (11.6-14.8); WHITE BLOOD COUNT 7.1 K/UL (4.8-10.8)
[2017-06-29 01:54] LABS: ANION GAP 9 mmol/L (5-15); BLOOD UREA NITROGEN 39 mg/dL (7-18); CALCIUM 9.2 MG/DL (8.5-10.1); CARBON DIOXIDE 24 MMOL/L (21-32); CHLORIDE 106 MMOL/L (98-107); CREATININE 2.2 MG/DL (0.55-1.30); POTASSIUM 4.1 MMOL/L (3.5-5.1); SODIUM 138 MMOL/L (136-145)
[2017-06-29 01:59] LABS: ALANINE AMINOTRANSFERASE 21 U/L (12-78); ALBUMIN 2.8 G/DL (3.4-5.0); ALBUMIN/GLOBULIN RATIO 0.6 (1.0-2.7); ALKALINE PHOSPHATASE 90 U/L (46-116); ASPARTATE AMINO TRANSFERASE 18 U/L (15-37); BILIRUBIN,TOTAL 0.3 MG/DL (0.2-1.0)
[2017-06-29 02:17] VITALS: BP 141/70
[2017-06-29 03:49] VITALS: BP 160/85
--- NOTE | 2017-06-29 03:56 | Emergency Room Report ---
History of Present Illness General Chief Complaint: Abnormal Labs Source: Medical Record Present Illness HPI 51-year-old female presents ED for evaluation. Patient brought from [facility] facility because of arterial occlusion in the left leg. Patient had ultrasound today which showed arterial occlusion. Upon arrival patient denies any pain. Denies any fevers or chills. No other aggravating relieving factors. Denies any other associated symptoms Allergies: Coded Allergies: PENICILLINS (Verified Allergy, Severe, SWOLLEN BODY, 04/23/17) Per Daughter, patient has tolerated Amoxicillin Tolerated Ceftriaxone 04/22/17 Patient History Past Medical History: HTN, GERD Past Surgical History: none Pertinent Family History: none Social History: Denies: smoking, alcohol use, drug use Now: No Immunizations: UTD Reviewed Nursing Documentation: PMH: Agreed; PSxH: Agreed Nursing Documentation-PMH Past Medical History: No History, Except For Hx Hypertension: Yes Hx Diabetes: Yes - Type 2 Hx Cancer: No Hx Gastrointestinal Problems: Yes - GERD, Dysphagia Hx Neurological Problems: Yes - Muscle weakness, Cellulitis of left lower leg Review of Systems All Other Systems: negative except mentioned in HPI Physical Exam Vital Signs Date Time Temp Pulse Resp B/P (MAP) Pulse Ox O2 Delivery O2 Flow Rate FiO2 06/29/17 00:39 97.7 82 16 150/95 99 Room Air 97.7 Sp02 EP Interpretation: reviewed, normal General Appearance: no apparent distress, alert, GCS 15, non-toxic Head: normocephalic Eyes: bilateral eye normal inspection, bilateral eye PERRL ENT: normal ENT inspection Neck: normal inspection Respiratory: chest non-tender, lungs clear, normal breath sounds, speaking full sentences Cardiovascular #1: regular rate, rhythm, no edema Cardiovascular #2: 3+ dorsalis pedis (L) Gastrointestinal: normal bowel sounds, non tender, soft, non-distended, no guarding, no rebound Rectal: deferred Genitourinary: no CVA tenderness Musculoskeletal: other - s/p TMA Rfoot Neurologic: alert, oriented x3, responsive, motor strength/tone normal, sensory intact, speech normal Psychiatric: judgement/insight normal, memory normal, mood/affect normal, no suicidal/homicidal ideation Skin: warm/dry, other - mottling of skin at toes L foot Lymphatic: normal inspection Medical Decision Making Diagnostic Impression: Primary Impression: Arterial occlusion, lower extremity Additional Impression: CKD (chronic kidney disease) Qualified Codes: N18.9 - Chronic kidney disease, unspecified ER Course Hospital Course 51 yo F presents to ED for possible arterial occlusion LLE Differential diagnoses include: DVT, arterial occlusion, cellulitis Clinical course Patient placed on stretcher after initial history, physical exam reveals a middle-aged female in no acute distress. On exam there is swelling to left lower extremity. There is some mottling around the toes. However there is good DP pulse. Foot is warm with good sensation I ordered labs, CTA of lower extremity Labs reviewed- BUN/Cr elevated, hemoglobin/hematocrit stable, coags ok Unable to perform CTA because of elevated creatinine arterial duplex shows mild stenosis in left superficial femoral artery, left popliteal artery, monophasic Heparin bolus given heparin drip started. Dr. Ramirez will consult. patient will be admitted to Dr Yi Flores. I feel this is a highly complex case requiring extensive working including EKG/Rhythm strip, Xray/CT/US, Blood/urine lab work, repeat exams while in ED, and administration of strong opiates/narcotics for pain control, admission to hospital or close patient follow up. Diagnosis - arterial occlusion, CKD admited to floor in serious condition Labs Test 06/29/17 01:30 White Blood Count 7.1 K/UL (4.8-10.8) Red Blood Count 3.61 M/UL (4.20-5.40) Hemoglobin 9.8 G/DL (12.0-16.0) Hematocrit 31.2 % (37.0-47.0) Mean Corpuscular Volume 87 FL (80-99) Mean Corpuscular Hemoglobin 27.2 PG (27.0-31.0) Mean Corpuscular Hemoglobin Concent 31.4 G/DL (32.0-36.0) Red Cell Distribution Width 15.5 % (11.6-14.8) Platelet Count 278 K/UL (150-450) Mean Platelet Volume 8.0 FL (6.5-10.1) Neutrophils (%) (Auto) 57.0 % (45.0-75.0) Lymphocytes (%) (Auto) 28.6 % (20.0-45.0) Monocytes (%) (Auto) 9.5 % (1.0-10.0) Eosinophils (%) (Auto) 3.7 % (0.0-3.0) Basophils (%) (Auto) 1.2 % (0.0-2.0) Prothrombin Time 10.5 SEC (9.30-11.50) Prothromb Time International Ratio 1.0 (0.9-1.1) Activated Partial Thromboplast Time 32 SEC (23-33) Sodium Level 138 MMOL/L (136-145) Potassium Level 4.1 MMOL/L (3.5-5.1) Chloride Level 106 MMOL/L (98-107) Carbon Dioxide Level 24 MMOL/L (21-32) Anion Gap 9 mmol/L (5-15) Blood Urea Nitrogen 39 mg/dL (7-18) Creatinine 2.2 MG/DL (0.55-1.30) Estimat Glomerular Filtration Rate 28.4 mL/min (>60) Glucose Level 188 MG/DL (74-106) Calcium Level 9.2 MG/DL (8.5-10.1) Total Bilirubin 0.3 MG/DL (0.2-1.0) Aspartate Amino Transf (AST/SGOT) 18 U/L (15-37) Alanine Aminotransferase (ALT/SGPT) 21 U/L (12-78) Alkaline Phosphatase 90 U/L (46-116) Total Protein 7.8 G/DL (6.4-8.2) Albumin 2.8 G/DL (3.4-5.0) Globulin 5.0 g/dL Albumin/Globulin Ratio 0.6 (1.0-2.7) CT/MRI/US Diagnostic Results CT/MRI/US Diagnostic Results : Imaging Test Ordered: Arterial Duplex LLE Impression mild stenosis in Left superficial femoral artery, L popliteal artey. monophasic. Last Vital Signs Date Time Temp Pulse Resp B/P (MAP) Pulse Ox O2 Delivery O2 Flow Rate FiO2 06/29/17 03:49 84 20 160/85 100 Room Air 06/29/17 02:17 97.0 97.0 Status: improved Disposition: ADMITTED INPATIENT Condition: Serious Referrals: Ruby Richmond MD (PCP) Elton Jimenez MD June 29, 2017 03:56
[2017-06-29] MEDS ORDERED: Heparin 5000 units/ml inj IV ONE (04:30)
[2017-06-29] MEDS ORDERED: Heparin 25,000u/D5W 500ml 500 ML IV SCH ×3 (04:30→09:45)
[2017-06-29 08:00] VITALS: BP 143/84
[2017-06-29] MEDS ORDERED: Norco 5mg/325mg tab ORAL PRN (10:15)
[2017-06-29] MEDS ORDERED: Morphine Sulfate 4mg/ml Inj IV PRN (10:15)
--- NOTE | 2017-06-29 10:16 | History and Physical ---
History of Present Illness General Date patient seen: June 29, 2017 Time patient seen: 09:30 Reason for Hospitalization: arterial occlusion Present Illness HPI 51 y/old female with PMH of DM, CKD st 4, HTN, GERD, diabetic ulcers BLE, s/p R foot metatarsal amputation, OM LLE, s/p Rx, cellulitis with abscess LLE, s/p bedside I&D in April 2017, MDD, anxiety, was sent to ED for evaluation. In SNF patient complained of edema, skin discoloration and pain in left foot. Arterial Duplex in SNF revealed arterial occlusion left distal superficial femoral artery. Patient subsequently was sent to ED for evaluation. Upon evaluation, afebrile, elevated BP 150/95 Laboratory workup no leukocytosis, evidence of anemia-9.8/31.2, and elevated BUN/creat-39/2.2 c/w known hx of CKD Arterial Duplex prelim. report reveal mild stenosis left superficial femoral artery , left popliteal artery, monophasic [id number] was started o heparin gtt and admitted for farther evaluation and management Allergies: Coded Allergies: PENICILLINS (Verified Allergy, Severe, SWOLLEN BODY, 04/23/17) Per Daughter, patient has tolerated Amoxicillin Tolerated Ceftriaxone 04/22/17 Uncoded Allergies: Blood Transfusion (Adverse Reaction, Unknown, 06/29/17) Pt states that she develops lower extremity wounds after blood transfusions Medication History Scheduled Amlodipine Besylate (Norvasc), 5 MG ORAL DAILY, (Reported) Ceftriaxone Sodium (Ceftriaxone), 2 GM IJ DAILY DAPTOmycin (DAPTOmycin), 850 MG IV DAILY Docusate Sodium* (Colace*), 100 MG ORAL DAILY, (Reported) Ferrous Sulfate* (Ferrous Sulfate*), 325 MG ORAL DAILY, (Reported) Folic Acid* (Folic Acid*), 1 MG ORAL DAILY, (Reported) Insulin Aspart (Novolog Flexpen), 6 UNITS SUBQ NOVOTIAC Insulin Aspart (Novolog Flexpen), 0 UNITS SUBQ BEFORE MEALS AND HS Insulin Detemir (Levemir Flexpen), 15 UNITS SUBQ Q12HR Insulin Glargine,Hum.rec.anlog (Lantus), 80 SUBQ BEDTIME, (Reported) Lansoprazole* (Lansoprazole*), 30 MG ORAL DAILY Lansoprazole* (Lansoprazole*), 30 MG ORAL DAILY, (Reported) Levofloxacin (Levofloxacin*), 500 MG ORAL DAILY Metformin Hcl* (Metformin Hcl*), 850 MG ORAL BID, (Reported) Metronidazole* (Flagyl*), 500 MG ORAL EVERY 8 HOURS Micafungin (Mycamine), 100 MG IVPB DAILY Vancomycin Hcl (Vancomycin Hcl), GM IV DAILY, (Reported) Scheduled PRN Acetaminophen* (Acetaminophen 325MG Tablet*), 325 MG ORAL Q4H PRN for For Pain, (Reported) Temazepam* (Restoril*), 15 MG ORAL BEDTIME PRN for Insomnia, (Reported) Miscellaneous Medications Epoetin Carroll (Epogen), 10,000 UNIT SUBQ, (Reported) Vancomycin Hcl (Vancomycin Hcl), 1 GM IV, (Reported) Patient History Healthcare decision maker Resuscitation status Full Code Advanced Directive on File Review of Systems Constitutional: Reports: weakness Eye: Reports: no symptoms ENT: Reports: no symptoms Respiratory: Reports: no symptoms Cardiovascular: Reports: see HPI Gastrointestinal: Reports: constipation Genitourinary: Reports: other - CKD st4 Musculoskeletal: Reports: other - R transmetatarsal amputation Skin: Reports: see HPI Psychiatric: Reports: other - MDD,anxiety Neurological: Reports: no symptoms Endocrine: Reports: other - diabetes Hematologic/Lymphatic: Reports: anemia Physical Exam General Appearance: WD/WN, no apparent distress, alert, obese Lines, tubes and drains: peripheral HEENT: normocephalic, atraumatic, anicteric, mucous membranes moist, PERRL Neck: non-tender, normal alignment, supple Respiratory/Chest: chest wall non-tender, lungs clear, no respiratory distress , no accessory muscle use Cardiovascular/Chest: normal rate, regular rhythm, no JVD Abdomen: normal bowel sounds, non tender - obese, soft Extremities: no calf tenderness, normal capillary refill, other - Left foot with edema, TTP, some mottling around toes,intact sensation, + DP pulse; right transmetatarsal amputation Neurologic: abnormal gait, alert, responsive, normal mood/affect Musculoskeletal: normal muscle bulk Last 24 Hour Vital Signs Date Time Temp Pulse Resp B/P (MAP) Pulse Ox O2 Delivery O2 Flow Rate FiO2 06/29/17 08:00 96.9 85 18 143/84 99 Room Air 96.9 06/29/17 04:45 97.0 84 20 160/85 100 Room Air 97.0 06/29/17 03:49 84 20 160/85 100 Room Air 06/29/17 02:17 97.0 88 15 141/70 99 Room Air 97.0 06/29/17 00:39 97.7 82 16 150/95 99 Room Air 97.7 Intake and Output 06/28/17 06/29/17 19:00 07:00 Intake Total 500 ml Output Total 0 ml Balance 500 ml Intake IV Total 500 ml Output Urine Total 0 ml # Voids 1 Laboratory Tests Test 06/29/17 01:30 White Blood Count 7.1 K/UL (4.8-10.8) Red Blood Count 3.61 M/UL (4.20-5.40) L Hemoglobin 9.8 G/DL (12.0-16.0) L Hematocrit 31.2 % (37.0-47.0) L Mean Corpuscular Volume 87 FL (80-99) Mean Corpuscular Hemoglobin 27.2 PG (27.0-31.0) Mean Corpuscular Hemoglobin Concent 31.4 G/DL (32.0-36.0) L Red Cell Distribution Width 15.5 % (11.6-14.8) H Platelet Count 278 K/UL (150-450) Mean Platelet Volume 8.0 FL (6.5-10.1) Neutrophils (%) (Auto) 57.0 % (45.0-75.0) Lymphocytes (%) (Auto) 28.6 % (20.0-45.0) Monocytes (%) (Auto) 9.5 % (1.0-10.0) Eosinophils (%) (Auto) 3.7 % (0.0-3.0) H Basophils (%) (Auto) 1.2 % (0.0-2.0) Prothrombin Time 10.5 SEC (9.30-11.50) Prothromb Time International Ratio 1.0 (0.9-1.1) Activated Partial Thromboplast Time 32 SEC (23-33) Sodium Level 138 MMOL/L (136-145) Potassium Level 4.1 MMOL/L (3.5-5.1) Chloride Level 106 MMOL/L (98-107) Carbon Dioxide Level 24 MMOL/L (21-32) Anion Gap 9 mmol/L (5-15) Blood Urea Nitrogen 39 mg/dL (7-18) H Creatinine 2.2 MG/DL (0.55-1.30) H Estimat Glomerular Filtration Rate 28.4 mL/min (>60) Glucose Level 188 MG/DL (74-106) H Calcium Level 9.2 MG/DL (8.5-10.1) Total Bilirubin 0.3 MG/DL (0.2-1.0) Aspartate Amino Transf (AST/SGOT) 18 U/L (15-37) Alanine Aminotransferase (ALT/SGPT) 21 U/L (12-78) Alkaline Phosphatase 90 U/L (46-116) Total Protein 7.8 G/DL (6.4-8.2) Albumin 2.8 G/DL (3.4-5.0) L Globulin 5.0 g/dL Albumin/Globulin Ratio 0.6 (1.0-2.7) L Height (Feet): 5 Height (Inches): 0.00 Weight (Pounds): 234 Medications Current Medications Medications (Trade) Dose Ordered Sig/Artemio Route PRN Reason Start Time Stop Time Status Last Admin Dose Admin Heparin Sodium/ Dextrose 500 ml @ 38.211 mls/ hr adjust per protocol IV 06/29/17 09:45 07/29/17 09:44 Iopamidol (Isovue-370 150ml) 150 ml NOW PRN INJ Radiology Procedure 06/29/17 01:00 07/01/17 00:52 Assessment/Plan Assessment/Plan ASSESSMENT possible arterial occlusion left distal femoral artery PAD DM, CKD, st 4, probably due to diabetic nephropathy LLE osteo, s/p treatment with LLE cellulitis and abscess ( s/p I&D) HTN bilateral foot ulcers anemia PLAN OF CARE [facility] floor Heparin gtt awaiting final report of arterial Duplex surgery and vasc surgeon eval BS management with short and long acting insulin, check HgA1c BP management with CCB and optimize as needed lipid panel, start statin if appropriate pain management podiatry and wound nurse eval for wound care monitor renal parameters, lytes, avoid nephrotoxics, GI prophylaxis resume iron and folate supplements, monitor HH, transfuse with goal to keep Hgb above 8 case discussed and evaluated by supervising physician Sarah Ring NP June 29, 2017 10:16
[2017-06-29 11:29] LABS: EOSINOPHILS % (AUTO) 3.3 % (0.0-3.0); HEMATOCRIT 32.8 % (37.0-47.0); LYMPHOCYTES % (AUTO) 25.5 % (20.0-45.0); MEAN CORPUSCULAR VOLUME 86 FL (80-99); NEUTROPHILS % (AUTO) 62.2 % (45.0-75.0); PLATELET COUNT 291 K/UL (150-450); RED BLOOD COUNT 3.81 M/UL (4.20-5.40); RED CELL DISTRIBUTION WIDTH 15.3 % (11.6-14.8)
[2017-06-29] MEDS ORDERED: NovoLOG Insulin Flexpen SUBQ SCH (11:30)
[2017-06-29] MEDS: NovoLOG Insulin Flexpen SUBQ SCH ×5 (11:39→20:45)
[2017-06-29 12:00] VITALS: BP 141/86
[2017-06-29] MEDS: Heparin 25,000u/D5W 500ml 500 ML IV SCH ×2 (13:01→21:06)
[2017-06-29] MEDS ORDERED: Gadavist 7.5mMol/7.5ml vial IV PRN (14:30)
[2017-06-29 16:00] VITALS: BP 147/89
[2017-06-29 20:00] VITALS: BP 142/92
[2017-06-29] MEDS: Levemir Flexpen SUBQ SCH (20:44)
[2017-06-29] MEDS ORDERED: Vancomycin 1250mg/D5W 250ml IVPB SCH (23:00)
[2017-06-29] MEDS: Aztreonam Inj 0.5 GM in D5W 55 ML IVPB SCH (23:12)
[2017-06-29] MEDS: metroNIDAZOLE 500mg tab ORAL SCH (23:13)
[2017-06-30 00:40] VITALS: BP 142/76
[2017-06-30 04:00] VITALS: BP 133/86
[2017-06-30] MEDS: metroNIDAZOLE 500mg tab ORAL SCH ×3 (05:01→22:15)
[2017-06-30] MEDS: Aztreonam Inj 0.5 GM in D5W 55 ML IVPB SCH ×3 (05:01→22:16)
[2017-06-30] MEDS: NovoLOG Insulin Flexpen SUBQ SCH ×9 (05:58→20:38)
[2017-06-30 07:17] LABS: BASOPHILS % (AUTO) 0.7 % (0.0-2.0); EOSINOPHILS % (AUTO) 4.4 % (0.0-3.0); HEMATOCRIT 29.7 % (37.0-47.0); HEMOGLOBIN 9.3 G/DL (12.0-16.0); LYMPHOCYTES % (AUTO) 32.9 % (20.0-45.0); MEAN CORPUSCULAR VOLUME 85 FL (80-99); MONOCYTES % (AUTO) 8.3 % (1.0-10.0); NEUTROPHILS % (AUTO) 53.7 % (45.0-75.0); PLATELET COUNT 276 K/UL (150-450); RED BLOOD COUNT 3.48 M/UL (4.20-5.40); RED CELL DISTRIBUTION WIDTH 15.1 % (11.6-14.8); WHITE BLOOD COUNT 6.9 K/UL (4.8-10.8)
[2017-06-30 07:35] LABS: CHOLESTEROL 230 MG/DL (< 200); HDL CHOLESTEROL 59 MG/DL (40-60); TRIGLYCERIDES 95 MG/DL (30-150)
[2017-06-30 08:00] VITALS: BP 143/81
[2017-06-30] MEDS: Levemir Flexpen SUBQ SCH ×2 (09:33→20:42)
[2017-06-30] MEDS: Docusate 100mg cap ORAL SCH (09:34)
[2017-06-30 12:00] VITALS: BP 151/95
--- NOTE | 2017-06-30 13:14 | Consultation ---
History of Present Illness General Date patient seen: June 30, 2017 Chief Complaint: Abnormal Labs Present Illness HPI 51 y/o F with hx of HTN, GERD, DM, CKD st 4, diabetic ulcers BLE, MDD, anxiety,s /p R foot metatarsal amputation, recent sepsis 2ry to LLE cellulitis/large abscess/OM s/p bedsdie I+D c/w polymicrobial bacteremia and fungemia April 2017 , s/p Rx presents to ED on 06/29 with L foot pain, edema, and skin discoloration. A. duplex at [facility] showed arterial occlusion L distal superficial femoral artery and sent here to further evaluation. Denies f/c Allergies: Coded Allergies: PENICILLINS (Verified Allergy, Severe, SWOLLEN BODY, 04/23/17) Per Daughter, patient has tolerated Amoxicillin Tolerated Ceftriaxone 04/22/17 Uncoded Allergies: Blood Transfusion (Adverse Reaction, Unknown, 06/29/17) Pt states that she develops lower extremity wounds after blood transfusions Medication History Scheduled Amlodipine Besylate (Norvasc), 5 MG ORAL DAILY, (Reported) Ceftriaxone Sodium (Ceftriaxone), 2 GM IJ DAILY DAPTOmycin (DAPTOmycin), 850 MG IV DAILY Docusate Sodium* (Colace*), 100 MG ORAL DAILY, (Reported) Ferrous Sulfate* (Ferrous Sulfate*), 325 MG ORAL DAILY, (Reported) Folic Acid* (Folic Acid*), 1 MG ORAL DAILY, (Reported) Insulin Aspart (Novolog Flexpen), 6 UNITS SUBQ NOVOTIAC Insulin Aspart (Novolog Flexpen), 0 UNITS SUBQ BEFORE MEALS AND HS Insulin Detemir (Levemir Flexpen), 15 UNITS SUBQ Q12HR Insulin Glargine,Hum.rec.anlog (Lantus), 80 SUBQ BEDTIME, (Reported) Lansoprazole* (Lansoprazole*), 30 MG ORAL DAILY Lansoprazole* (Lansoprazole*), 30 MG ORAL DAILY, (Reported) Levofloxacin (Levofloxacin*), 500 MG ORAL DAILY Metformin Hcl* (Metformin Hcl*), 850 MG ORAL BID, (Reported) Metronidazole* (Flagyl*), 500 MG ORAL EVERY 8 HOURS Micafungin (Mycamine), 100 MG IVPB DAILY Vancomycin Hcl (Vancomycin Hcl), GM IV DAILY, (Reported) Scheduled PRN Acetaminophen* (Acetaminophen 325MG Tablet*), 325 MG ORAL Q4H PRN for For Pain, (Reported) Temazepam* (Restoril*), 15 MG ORAL BEDTIME PRN for Insomnia, (Reported) Miscellaneous Medications Epoetin Carroll (Epogen), 10,000 UNIT SUBQ, (Reported) Vancomycin Hcl (Vancomycin Hcl), 1 GM IV, (Reported) Patient History Healthcare decision maker Resuscitation status Full Code Advanced Directive on File Patient History Narrative Pmhx as above Shx: Denies: smoking, alcohol use, drug use Fhx: non contributory Review of Systems All Other Systems: negative except mentioned in HPI Physical Exam Physical Exam Narrative General Appearance: WD/WN, no apparent distress, alert, obese Lines, tubes and drains: peripheral HEENT: normocephalic, atraumatic, anicteric, mucous membranes moist, PERRL Neck: non-tender, normal alignment, supple Respiratory/Chest: chest wall non-tender, lungs clear, no respiratory distress , no accessory muscle use Cardiovascular/Chest: normal rate, regular rhythm, no JVD Abdomen: normal bowel sounds, non tender - obese, soft Extremities: no calf tenderness, normal capillary refill, other - Left foot with edema, TTP, some mottling around toes,intact sensation, + DP pulse; right transmetatarsal amputation Neurologic: abnormal gait, alert, responsive, normal mood/affect Musculoskeletal: normal muscle bulk Last 24 Hour Vital Signs Date Time Temp Pulse Resp B/P (MAP) Pulse Ox O2 Delivery O2 Flow Rate FiO2 06/30/17 09:34 86 143/81 06/30/17 08:00 99.0 86 20 143/81 99 99.0 06/30/17 04:00 98.1 83 20 133/86 99 98.1 06/30/17 00:40 97.9 85 20 142/76 100 Room Air 97.9 06/29/17 20:00 97.9 80 20 142/92 100 97.9 06/29/17 16:00 97.9 79 20 147/89 100 Room Air 97.9 Intake and Output 06/29/17 06/30/17 19:00 07:00 Intake Total 1190.265 ml 286.56 ml Balance 1190.265 ml 286.56 ml Intake Oral 840 ml IV Total 350.265 ml 286.56 ml # Voids 3 4 Laboratory Tests Test 5/20/18 19:10 06/30/17 05:30 Activated Partial Thromboplast Time 65 SEC (23-33) H 66 SEC (23-33) H White Blood Count 6.9 K/UL (4.8-10.8) Red Blood Count 3.48 M/UL (4.20-5.40) L Hemoglobin 9.3 G/DL (12.0-16.0) L Hematocrit 29.7 % (37.0-47.0) L Mean Corpuscular Volume 85 FL (80-99) Mean Corpuscular Hemoglobin 26.7 PG (27.0-31.0) L Mean Corpuscular Hemoglobin Concent 31.3 G/DL (32.0-36.0) L Red Cell Distribution Width 15.1 % (11.6-14.8) H Platelet Count 276 K/UL (150-450) Mean Platelet Volume 8.2 FL (6.5-10.1) Neutrophils (%) (Auto) 53.7 % (45.0-75.0) Lymphocytes (%) (Auto) 32.9 % (20.0-45.0) Monocytes (%) (Auto) 8.3 % (1.0-10.0) Eosinophils (%) (Auto) 4.4 % (0.0-3.0) H Basophils (%) (Auto) 0.7 % (0.0-2.0) Hemoglobin A1c 8.0 % (4.3-6.0) H Triglycerides Level 95 MG/DL (30-150) Cholesterol Level 230 MG/DL (< 200) H LDL Cholesterol 148 mg/dL (<100) H HDL Cholesterol 59 MG/DL (40-60) Cholesterol/HDL Ratio 3.9 (3.3-4.4) Height (Feet): 5 Height (Inches): 0.00 Weight (Pounds): 234 Medications Current Medications Medications (Trade) Dose Ordered Sig/Artemio Route PRN Reason Start Time Stop Time Status Last Admin Dose Admin Acetaminophen (Tylenol) 325 mg Q4H PRN ORAL Mild Pain / T>100.5 06/29/17 10:15 07/29/17 10:14 Acetaminophen/ Hydrocodone Bitart ([place] 5/325) 1 tab Q6H PRN ORAL Moderate Pain (Pain Scale 4-6) 06/29/17 10:15 07/06/17 10:14 Amlodipine Besylate (Norvasc) 5 mg DAILY ORAL 06/30/17 09:00 07/30/17 08:59 06/30/17 09:34 Aztreonam 0.5 gm/ Dextrose 55 ml @ 110 mls/hr Q8HR IVPB 06/29/17 22:00 07/06/17 21:59 06/30/17 05:01 Dextrose (Dextrose 50%) 25 ml STAT PRN IV Hypoglycemia 06/29/17 12:00 07/29/17 11:59 Dextrose (Dextrose 50%) 50 ml STAT PRN IV Hypoglycemia 06/29/17 12:00 07/29/17 11:59 Docusate Sodium (Colace) 100 mg DAILY ORAL 06/30/17 09:00 07/30/17 08:59 06/30/17 09:34 Ferrous Sulfate (Feosol) 325 mg DAILY ORAL 06/30/17 09:00 07/30/17 08:59 06/30/17 09:34 Folic Acid (Folate) 1 mg DAILY ORAL 06/30/17 09:00 07/30/17 08:59 06/30/17 09:34 Gadobutrol (Gadavist) 7.5 mmol NOW PRN IV Radiology Procedure 06/29/17 14:30 07/03/17 14:20 Heparin Sodium/ Dextrose 500 ml @ 31.842 mls/ hr adjust per protocol IV 06/29/17 13:00 07/29/17 12:59 06/29/17 21:06 Insulin Aspart (NovoLOG) BEFORE MEALS AND HS SUBQ 06/29/17 12:00 07/29/17 11:59 06/30/17 11:44 Insulin Aspart (NovoLOG) 6 units NOVOTIAC SUBQ 06/29/17 11:50 07/29/17 11:49 06/30/17 11:44 Insulin Detemir (Levemir) 15 units Q12HR SUBQ 06/29/17 21:00 07/29/17 20:59 06/30/17 09:33 Iopamidol (Isovue-370 150ml) 150 ml NOW PRN INJ Radiology Procedure 06/29/17 01:00 07/01/17 00:52 Lansoprazole (Prevacid) 30 mg DAILY ORAL 5/21/18 09:00 07/30/17 08:59 06/30/17 09:34 Metronidazole (Flagyl) 500 mg Q8HR ORAL 06/29/17 22:00 07/06/17 21:59 06/30/17 05:01 Morphine Sulfate (Morphine Sulfate) 2 mg Q4H PRN IV Severe Pain (Pain Scale 7-10) 06/29/17 10:15 07/06/17 10:14 Vancomycin HCl (Vanco rx to dose) 1 ea DAILY PRN MISC Per rx protocol 06/29/17 21:00 07/29/17 20:59 Vancomycin HCl 1 gm/Dextrose 275 ml @ 183.708 mls/hr Q36H IVPB 07/01/17 11:00 07/06/17 10:59 Assessment/Plan Assessment/Plan Abx: IV Vanco 06/29- Aztreonam 06/29- Assessment: Diabetic foot uclers- worsening w/ New L foot ulceration - r/o worsening OM, abscess -prior L lateral ankle wound healing -a. duplex at [facility]: mild stenosis in left superficial femoral artery, left popliteal artery, monophasic Afebrile, no leukocytosis Hx of Sepsis 2ry to L Leg cellulitis., large abscess (polymicrobial), infected ankle wound and OM c/w polymicrobial bacteremia and fungemia April 2017, s/p Rx -MRI L leg: Positive for osteomyelitis of the distal fibula, with evidence of bony destruction. More subtle marrow changes as described in the talus and calcaneus, also suspicious for osteomyelitis. Evidence of soft tissue cellulitis both laterally and medially. No drainable abscess. Abnormal peroneus longus tendon, may indicate inflammation or infection. Possible damage to the distal peroneus brevis tendon - s/p bedside I+D 04/23: large abscess in left distal lateral leg down to muscle and tendon. large area of fluctuance. 50-75cc of pus evacuated; wound cx +1 K.pna (grissom S), +4 E. fecalis (grissom S) -Xray R tibia/fibula/ankle: Evidence of multiple lateral soft tissue ulcers in the distal leg and ankle. Evidence of destructive change of the distal fibula. This is highly suspicious for acute osteomyelitis. No acute bony trauma -wound cx from purulent discharge 04/22 #1: +2 MRSA, <1+ E. aerogens (S Ceftriaxone), +4 GBS; #2 +2 MRSA (S tetracycline, bactrim, vanco), +4 E. aerogens (S Ceftriaxone), E fecalis (grissom S) -ESR 116, CRP 27.7> 04/26 >70; 04/30 14.7> 12.8 05/03 - -Bcx 04/21 2/4 + GBS, 2/4 CoNS, 02/13MRSA, Bcx 04/22 1 C. glabrata; 04/25 Bcx NTD; Bcx 04/27 2/4 S. epi (from same bottle) ; 04/28 BCx Neg -Echo:Limited (poor acoustic views)- no vegetations, no significant valve abnormalities -CT chest/abd/p wo: no abscess Dm2 HTN hx of R transmetatarsal amputation GERD CKD st 4 MDD anxiety reported PNC allergy- however tolerates Amoxicillin per daughter and tolerated Ceftriaxone 04/2017 Plan: -Continue empiriv IV vanco and Aztreonam #2 and add PO Flagyl for now pending wound culture -06/01 SP Ceftriaxone and Daptomycin #42 -05/08 SP Micafungin #14 -05/06 PO Flagyl #14 -04/30 SP IV Vancomycin #7 -04/23 SP IV Vancomycin #2 and Clindamycin #2 -04/22 SP IV Aztreonam #2 -f.u cx -F/u MRI L foot- may require amputation per Gen sx. -Monitor CBC/BMP, temperatures -wound care -ESR, CRP Thank you for this consultation. Will continue to follow along with you. Discussed with RN and Faye Cárdenas M.D. June 30, 2017 13:14
--- NOTE | 2017-06-30 13:15 | Diagnostic Imaging Report ---
Indication: Pain Technique: Right ankle/hind foot imaging utilizing multiplanar T1 fast spin-echo, proton and T2 fast spin-echo with fat saturation, and STIR. Comparison: Previous MRI 04/24/2017 left ankle hindfoot Findings: Progressively worsening signal abnormalities demonstrated within the ankle hindfoot compared to the last examination from 04/24/2017. There is abnormal low T1/high T2 signal with trey erosion of the lateral malleolus and distal fibula. The signal alterations in degree of osteomyelitis appear relatively stable in this location. However there is increasing similar signal abnormalities now present within the talar dome as well as the medial malleolus. There is a joint effusion within the tibiotalar joint. There is a subtalar joint effusion. There is abnormal signal noted in the upper part of the calcaneus adjacent to the subtalar joint. Clinical correlation is needed but the findings are suspicious for progressively worsening osteomyelitis. In the medial part of the ankle there is now accumulation of fluid in the subcutaneous space measuring 4 x 1.7 cm on transaxial images. 12 cm craniocaudal. Suggestion of small foci of air within the fluid. Correlate clinically. This is suspicious for abscess. Suggest plain film evaluation as well. IMPRESSION: Abnormal fluid collection in the medial aspect of the ankle measuring approximately 4 x 1.7 x 12 cm suspicious for abscess. Evidence of progressively worsening signal alteration presumably osteomyelitis involving bilateral malleolus regions, distal tibia plafond, talus and possibly the upper part of the calcaneus.
--- NOTE | 2017-06-30 13:21 | Consultation ---
History of Present Illness General Chief Complaint: Abnormal Labs Present Illness HPI 51F well known to me from prior admission. had left lateral foot abscess s/p I& D that was healing slowly. since was in care and with max medical therapy. has history of right foot amputation for similar events. now returns with left leg pain and was thought to be possible vascular occlusion. "knot" in leg resolved soon after admission and pain gone. vascular studies reviewed and mild stenosis of sfa and distal. does have pulses distal. unfortunately foot with edema, decreased motion, and does not seem to be improving. likely has worsening osteo. MRI ordered. surgery called to evaluate for foot infection Allergies: Coded Allergies: PENICILLINS (Verified Allergy, Severe, SWOLLEN BODY, 04/23/17) Per Daughter, patient has tolerated Amoxicillin Tolerated Ceftriaxone 04/22/17 Uncoded Allergies: Blood Transfusion (Adverse Reaction, Unknown, 06/29/17) Pt states that she develops lower extremity wounds after blood transfusions Medication History Scheduled Amlodipine Besylate (Norvasc), 5 MG ORAL DAILY, (Reported) Ceftriaxone Sodium (Ceftriaxone), 2 GM IJ DAILY DAPTOmycin (DAPTOmycin), 850 MG IV DAILY Docusate Sodium* (Colace*), 100 MG ORAL DAILY, (Reported) Ferrous Sulfate* (Ferrous Sulfate*), 325 MG ORAL DAILY, (Reported) Folic Acid* (Folic Acid*), 1 MG ORAL DAILY, (Reported) Insulin Aspart (Novolog Flexpen), 6 UNITS SUBQ NOVOTIAC Insulin Aspart (Novolog Flexpen), 0 UNITS SUBQ BEFORE MEALS AND HS Insulin Detemir (Levemir Flexpen), 15 UNITS SUBQ Q12HR Insulin Glargine,Hum.rec.anlog (Lantus), 80 SUBQ BEDTIME, (Reported) Lansoprazole* (Lansoprazole*), 30 MG ORAL DAILY Lansoprazole* (Lansoprazole*), 30 MG ORAL DAILY, (Reported) Levofloxacin (Levofloxacin*), 500 MG ORAL DAILY Metformin Hcl* (Metformin Hcl*), 850 MG ORAL BID, (Reported) Metronidazole* (Flagyl*), 500 MG ORAL EVERY 8 HOURS Micafungin (Mycamine), 100 MG IVPB DAILY Vancomycin Hcl (Vancomycin Hcl), GM IV DAILY, (Reported) Scheduled PRN Acetaminophen* (Acetaminophen 325MG Tablet*), 325 MG ORAL Q4H PRN for For Pain, (Reported) Temazepam* (Restoril*), 15 MG ORAL BEDTIME PRN for Insomnia, (Reported) Miscellaneous Medications Epoetin Carroll (Epogen), 10,000 UNIT SUBQ, (Reported) Vancomycin Hcl (Vancomycin Hcl), 1 GM IV, (Reported) Patient History History Provided By: Patient, PMD Healthcare decision maker Resuscitation status Full Code Advanced Directive on File Past Medical/Surgical History Past Medical/Surgical History: (1) Diabetes mellitus (2) Leg ulcer, left (3) Abscess of left leg (4) Bacteremia (5) Diabetic nephropathy (6) Anemia in chronic kidney disease (7) Fungemia (8) Sepsis (9) CKD (chronic kidney disease) (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 left foot with multiple wounds and some new wounds. prior wound healing slowly. more edema now and less function. Skin Exam: normal pigmentation Neurologic: alert, oriented x 3 Last 24 Hour Vital Signs Date Time Temp Pulse Resp B/P (MAP) Pulse Ox O2 Delivery O2 Flow Rate FiO2 06/30/17 12:00 99.0 86 20 151/95 99 99.0 06/30/17 09:34 86 143/81 06/30/17 08:00 99.0 86 20 143/81 99 99.0 06/30/17 04:00 98.1 83 20 133/86 99 98.1 06/30/17 00:40 97.9 85 20 142/76 100 Room Air 97.9 06/29/17 20:00 97.9 80 20 142/92 100 97.9 06/29/17 16:00 97.9 79 20 147/89 100 Room Air 97.9 Intake and Output 06/29/17 06/30/17 19:00 07:00 Intake Total 1190.265 ml 286.56 ml Balance 1190.265 ml 286.56 ml Intake Oral 840 ml IV Total 350.265 ml 286.56 ml # Voids 3 4 Laboratory Tests Test 06/29/17 19:10 06/30/17 05:30 Activated Partial Thromboplast Time 65 SEC (23-33) H 66 SEC (23-33) H White Blood Count 6.9 K/UL (4.8-10.8) Red Blood Count 3.48 M/UL (4.20-5.40) L Hemoglobin 9.3 G/DL (12.0-16.0) L Hematocrit 29.7 % (37.0-47.0) L Mean Corpuscular Volume 85 FL (80-99) Mean Corpuscular Hemoglobin 26.7 PG (27.0-31.0) L Mean Corpuscular Hemoglobin Concent 31.3 G/DL (32.0-36.0) L Red Cell Distribution Width 15.1 % (11.6-14.8) H Platelet Count 276 K/UL (150-450) Mean Platelet Volume 8.2 FL (6.5-10.1) Neutrophils (%) (Auto) 53.7 % (45.0-75.0) Lymphocytes (%) (Auto) 32.9 % (20.0-45.0) Monocytes (%) (Auto) 8.3 % (1.0-10.0) Eosinophils (%) (Auto) 4.4 % (0.0-3.0) H Basophils (%) (Auto) 0.7 % (0.0-2.0) Hemoglobin A1c 8.0 % (4.3-6.0) H Triglycerides Level 95 MG/DL (30-150) Cholesterol Level 230 MG/DL (< 200) H LDL Cholesterol 148 mg/dL (<100) H HDL Cholesterol 59 MG/DL (40-60) Cholesterol/HDL Ratio 3.9 (3.3-4.4) Height (Feet): 5 Height (Inches): 0.00 Weight (Pounds): 234 Medications Current Medications Medications (Trade) Dose Ordered Sig/Artemio Route PRN Reason Start Time Stop Time Status Last Admin Dose Admin Acetaminophen (Tylenol) 325 mg Q4H PRN ORAL Mild Pain / T>100.5 06/29/17 10:15 07/29/17 10:14 Acetaminophen/ Hydrocodone Bitart ([place] 5/325) 1 tab Q6H PRN ORAL Moderate Pain (Pain Scale 4-6) 06/29/17 10:15 07/06/17 10:14 Amlodipine Besylate (Norvasc) 5 mg DAILY ORAL 06/30/17 09:00 07/30/17 08:59 06/30/17 09:34 Aztreonam 0.5 gm/ Dextrose 55 ml @ 110 mls/hr Q8HR IVPB 06/29/17 22:00 07/06/17 21:59 06/30/17 13:07 Dextrose (Dextrose 50%) 25 ml STAT PRN IV Hypoglycemia 06/29/17 12:00 07/29/17 11:59 Dextrose (Dextrose 50%) 50 ml STAT PRN IV Hypoglycemia 06/29/17 12:00 07/29/17 11:59 Docusate Sodium (Colace) 100 mg DAILY ORAL 06/30/17 09:00 07/30/17 08:59 06/30/17 09:34 Ferrous Sulfate (Feosol) 325 mg DAILY ORAL 06/30/17 09:00 07/30/17 08:59 06/30/17 09:34 Folic Acid (Folate) 1 mg DAILY ORAL 06/30/17 09:00 07/30/17 08:59 06/30/17 09:34 Gadobutrol (Gadavist) 7.5 mmol NOW PRN IV Radiology Procedure 06/29/17 14:30 07/03/17 14:20 Heparin Sodium/ Dextrose 500 ml @ 31.842 mls/ hr adjust per protocol IV 06/29/17 13:00 07/29/17 12:59 06/29/17 21:06 Insulin Aspart (NovoLOG) BEFORE MEALS AND HS SUBQ 06/29/17 12:00 07/29/17 11:59 06/30/17 11:44 Insulin Aspart (NovoLOG) 6 units NOVOTIAC SUBQ 06/29/17 11:50 07/29/17 11:49 06/30/17 11:44 Insulin Detemir (Levemir) 15 units Q12HR SUBQ 06/29/17 21:00 07/29/17 20:59 06/30/17 09:33 Iopamidol (Isovue-370 150ml) 150 ml NOW PRN INJ Radiology Procedure 06/29/17 01:00 07/01/17 00:52 Lansoprazole (Prevacid) 30 mg DAILY ORAL 06/30/17 09:00 07/30/17 08:59 06/30/17 09:34 Metronidazole (Flagyl) 500 mg Q8HR ORAL 06/29/17 22:00 07/06/17 21:59 06/30/17 13:06 Morphine Sulfate (Morphine Sulfate) 2 mg Q4H PRN IV Severe Pain (Pain Scale 7-10) 06/29/17 10:15 07/06/17 10:14 Vancomycin HCl (Vanco rx to dose) 1 ea DAILY PRN MISC Per rx protocol 06/29/17 21:00 07/29/17 20:59 Vancomycin HCl 1 gm/Dextrose 275 ml @ 183.708 mls/hr Q36H IVPB 07/01/17 11:00 07/06/17 10:59 Assessment/Plan Problem List: (1) Diabetic foot ulcer Assessment & Plan: diabetic foot with worsening overall condition. now new ulcers and fluid collections/edema. slowly healing. less motor function. unfortunately slowly worsening. -pending final MRI read -will likely need amputation. does not seem salvageable after weeks of maximal medical therapy ICD Codes: E11.621 - Type 2 diabetes mellitus with foot ulcer; L97.509 - Non- pressure chronic ulcer of other part of unspecified foot with unspecified severity SNOMED: [id number], [id number] Qualifiers: Qualified Codes: E08.621 - Diabetes mellitus due to underlying condition with foot ulcer; L97.528 - Non-pressure chronic ulcer of other part of left foot with other specified severity Status: stable Sandro Ramirez June 30, 2017 13:21
--- NOTE | 2017-06-30 13:26 | Consultation ---
History of Present Illness General Chief Complaint: Abnormal Labs Present Illness Allergies: Coded Allergies: PENICILLINS (Verified Allergy, Severe, SWOLLEN BODY, 04/23/17) Per Daughter, patient has tolerated Amoxicillin Tolerated Ceftriaxone 04/22/17 Uncoded Allergies: Blood Transfusion (Adverse Reaction, Unknown, 06/29/17) Pt states that she develops lower extremity wounds after blood transfusions Medication History Scheduled Amlodipine Besylate (Norvasc), 5 MG ORAL DAILY, (Reported) Ceftriaxone Sodium (Ceftriaxone), 2 GM IJ DAILY DAPTOmycin (DAPTOmycin), 850 MG IV DAILY Docusate Sodium* (Colace*), 100 MG ORAL DAILY, (Reported) Ferrous Sulfate* (Ferrous Sulfate*), 325 MG ORAL DAILY, (Reported) Folic Acid* (Folic Acid*), 1 MG ORAL DAILY, (Reported) Insulin Aspart (Novolog Flexpen), 6 UNITS SUBQ NOVOTIAC Insulin Aspart (Novolog Flexpen), 0 UNITS SUBQ BEFORE MEALS AND HS Insulin Detemir (Levemir Flexpen), 15 UNITS SUBQ Q12HR Insulin Glargine,Hum.rec.anlog (Lantus), 80 SUBQ BEDTIME, (Reported) Lansoprazole* (Lansoprazole*), 30 MG ORAL DAILY Lansoprazole* (Lansoprazole*), 30 MG ORAL DAILY, (Reported) Levofloxacin (Levofloxacin*), 500 MG ORAL DAILY Metformin Hcl* (Metformin Hcl*), 850 MG ORAL BID, (Reported) Metronidazole* (Flagyl*), 500 MG ORAL EVERY 8 HOURS Micafungin (Mycamine), 100 MG IVPB DAILY Vancomycin Hcl (Vancomycin Hcl), GM IV DAILY, (Reported) Scheduled PRN Acetaminophen* (Acetaminophen 325MG Tablet*), 325 MG ORAL Q4H PRN for For Pain, (Reported) Temazepam* (Restoril*), 15 MG ORAL BEDTIME PRN for Insomnia, (Reported) Miscellaneous Medications Epoetin Carroll (Epogen), 10,000 UNIT SUBQ, (Reported) Vancomycin Hcl (Vancomycin Hcl), 1 GM IV, (Reported) Patient History Healthcare decision maker Resuscitation status Full Code Advanced Directive on File Physical Exam Last 24 Hour Vital Signs Date Time Temp Pulse Resp B/P (MAP) Pulse Ox O2 Delivery O2 Flow Rate FiO2 06/30/17 12:00 99.0 86 20 151/95 99 99.0 06/30/17 09:34 86 143/81 06/30/17 08:00 99.0 86 20 143/81 99 99.0 06/30/17 04:00 98.1 83 20 133/86 99 98.1 06/30/17 00:40 97.9 85 20 142/76 100 Room Air 97.9 06/29/17 20:00 97.9 80 20 142/92 100 97.9 06/29/17 16:00 97.9 79 20 147/89 100 Room Air 97.9 Intake and Output 06/29/17 06/30/17 19:00 07:00 Intake Total 1190.265 ml 286.56 ml Balance 1190.265 ml 286.56 ml Intake Oral 840 ml IV Total 350.265 ml 286.56 ml # Voids 3 4 Laboratory Tests Test 06/29/17 19:10 06/30/17 05:30 Activated Partial Thromboplast Time 65 SEC (23-33) H 66 SEC (23-33) H White Blood Count 6.9 K/UL (4.8-10.8) Red Blood Count 3.48 M/UL (4.20-5.40) L Hemoglobin 9.3 G/DL (12.0-16.0) L Hematocrit 29.7 % (37.0-47.0) L Mean Corpuscular Volume 85 FL (80-99) Mean Corpuscular Hemoglobin 26.7 PG (27.0-31.0) L Mean Corpuscular Hemoglobin Concent 31.3 G/DL (32.0-36.0) L Red Cell Distribution Width 15.1 % (11.6-14.8) H Platelet Count 276 K/UL (150-450) Mean Platelet Volume 8.2 FL (6.5-10.1) Neutrophils (%) (Auto) 53.7 % (45.0-75.0) Lymphocytes (%) (Auto) 32.9 % (20.0-45.0) Monocytes (%) (Auto) 8.3 % (1.0-10.0) Eosinophils (%) (Auto) 4.4 % (0.0-3.0) H Basophils (%) (Auto) 0.7 % (0.0-2.0) Hemoglobin A1c 8.0 % (4.3-6.0) H Triglycerides Level 95 MG/DL (30-150) Cholesterol Level 230 MG/DL (< 200) H LDL Cholesterol 148 mg/dL (<100) H HDL Cholesterol 59 MG/DL (40-60) Cholesterol/HDL Ratio 3.9 (3.3-4.4) Height (Feet): 5 Height (Inches): 0.00 Weight (Pounds): 234 Medications Current Medications Medications (Trade) Dose Ordered Sig/Artemio Route PRN Reason Start Time Stop Time Status Last Admin Dose Admin Acetaminophen (Tylenol) 325 mg Q4H PRN ORAL Mild Pain / T>100.5 06/29/17 10:15 07/29/17 10:14 Acetaminophen/ Hydrocodone Bitart ([place] 5/325) 1 tab Q6H PRN ORAL Moderate Pain (Pain Scale 4-6) 06/29/17 10:15 07/06/17 10:14 Amlodipine Besylate (Norvasc) 5 mg DAILY ORAL 06/30/17 09:00 07/30/17 08:59 06/30/17 09:34 Aztreonam 0.5 gm/ Dextrose 55 ml @ 110 mls/hr Q8HR IVPB 06/29/17 22:00 07/06/17 21:59 06/30/17 13:07 Dextrose (Dextrose 50%) 25 ml STAT PRN IV Hypoglycemia 06/29/17 12:00 07/29/17 11:59 Dextrose (Dextrose 50%) 50 ml STAT PRN IV Hypoglycemia 06/29/17 12:00 07/29/17 11:59 Docusate Sodium (Colace) 100 mg DAILY ORAL 06/30/17 09:00 07/30/17 08:59 06/30/17 09:34 Ferrous Sulfate (Feosol) 325 mg DAILY ORAL 06/30/17 09:00 07/30/17 08:59 06/30/17 09:34 Folic Acid (Folate) 1 mg DAILY ORAL 06/30/17 09:00 07/30/17 08:59 06/30/17 09:34 Gadobutrol (Gadavist) 7.5 mmol NOW PRN IV Radiology Procedure 06/29/17 14:30 07/03/17 14:20 Heparin Sodium/ Dextrose 500 ml @ 31.842 mls/ hr adjust per protocol IV 06/29/17 13:00 07/29/17 12:59 06/29/17 21:06 Insulin Aspart (NovoLOG) BEFORE MEALS AND HS SUBQ 06/29/17 12:00 07/29/17 11:59 06/30/17 11:44 Insulin Aspart (NovoLOG) 6 units NOVOTIAC SUBQ 06/29/17 11:50 07/29/17 11:49 06/30/17 11:44 Insulin Detemir (Levemir) 15 units Q12HR SUBQ 06/29/17 21:00 07/29/17 20:59 06/30/17 09:33 Iopamidol (Isovue-370 150ml) 150 ml NOW PRN INJ Radiology Procedure 06/29/17 01:00 07/01/17 00:52 Lansoprazole (Prevacid) 30 mg DAILY ORAL 06/30/17 09:00 07/30/17 08:59 06/30/17 09:34 Metronidazole (Flagyl) 500 mg Q8HR ORAL 06/29/17 22:00 07/06/17 21:59 06/30/17 13:06 Morphine Sulfate (Morphine Sulfate) 2 mg Q4H PRN IV Severe Pain (Pain Scale 7-10) 06/29/17 10:15 07/06/17 10:14 Vancomycin HCl (Vanco rx to dose) 1 ea DAILY PRN MISC Per rx protocol 06/29/17 21:00 07/29/17 20:59 Vancomycin HCl 1 gm/Dextrose 275 ml @ 183.708 mls/hr Q36H IVPB 07/01/17 11:00 07/06/17 10:59 Remington Kimbrough M.D. June 30, 2017 13:26
--- NOTE | 2017-06-30 15:48 | Pulmonology Progress Note ---
Assessment/Plan Problems: (1) Diabetic foot ulcer (2) CKD (chronic kidney disease) (3) Diabetes mellitus (4) Diabetic nephropathy (5) Anemia in chronic kidney disease Assessment/Plan podiatry, surgery consult ID f/u check cultures sliding scale diabetic diet insulin coverage./ Subjective ROS Limited/Unobtainable: No Constitutional: Reports: no symptoms Respiratory: Reports: no symptoms Allergies: Coded Allergies: PENICILLINS (Verified Allergy, Severe, SWOLLEN BODY, 04/23/17) Per Daughter, patient has tolerated Amoxicillin Tolerated Ceftriaxone 04/22/17 Uncoded Allergies: Blood Transfusion (Adverse Reaction, Unknown, 06/29/17) Pt states that she develops lower extremity wounds after blood transfusions Objective Last 24 Hour Vital Signs Date Time Temp Pulse Resp B/P (MAP) Pulse Ox O2 Delivery O2 Flow Rate FiO2 06/30/17 12:00 99.0 86 20 151/95 99 99.0 06/30/17 09:34 86 143/81 06/30/17 08:00 99.0 86 20 143/81 99 99.0 06/30/17 04:00 98.1 83 20 133/86 99 98.1 06/30/17 00:40 97.9 85 20 142/76 100 Room Air 97.9 06/29/17 20:00 97.9 80 20 142/92 100 97.9 06/29/17 16:00 97.9 79 20 147/89 100 Room Air 97.9 Intake and Output 06/29/17 06/30/17 19:00 07:00 Intake Total 1190.265 ml 286.56 ml Balance 1190.265 ml 286.56 ml Intake Oral 840 ml IV Total 350.265 ml 286.56 ml # Voids 3 4 General Appearance: WD/WN HEENT: normocephalic, atraumatic Respiratory/Chest: chest wall non-tender, lungs clear Breasts: no masses Cardiovascular: normal peripheral pulses Abdomen: normal bowel sounds, non distended Extremities: no cyanosis Neurologic/Psychiatric: no motor/sensory deficits, abnormal gait Microbiology Date/Time Source Procedure Growth Status 06/29/17 05:45 Wound Gram Stain - Final Resulted 06/29/17 05:45 Wound Wound Culture - Preliminary NO GROWTH AFTER 24 HOURS Resulted Laboratory Tests 06/29/17 19:10: Activated Partial Thromboplast Time 65H 06/30/17 05:30: Activated Partial Thromboplast Time 66H, White Blood Count 6.9, Red Blood Count 3.48L, Hemoglobin 9.3L, Hematocrit 29.7L, Mean Corpuscular Volume 85, Mean Corpuscular Hemoglobin 26.7L, Mean Corpuscular Hemoglobin Concent 31.3L, Red Cell Distribution Width 15.1H, Platelet Count 276, Mean Platelet Volume 8.2, Neutrophils (%) (Auto) 53.7, Lymphocytes (%) (Auto) 32.9, Monocytes (%) (Auto) 8.3, Eosinophils (%) (Auto) 4.4H, Basophils (%) (Auto) 0.7, Hemoglobin A1c 8.0H , Triglycerides Level 95, Cholesterol Level 230H, LDL Cholesterol 148H, HDL Cholesterol 59, Cholesterol/HDL Ratio 3.9 Current Medications Medications (Trade) Dose Ordered Sig/Artemio Route PRN Reason Start Time Stop Time Status Last Admin Dose Admin Acetaminophen (Tylenol) 325 mg Q4H PRN ORAL Mild Pain / T>100.5 06/29/17 10:15 07/29/17 10:14 Acetaminophen/ Hydrocodone Bitart ([place] 5/325) 1 tab Q6H PRN ORAL Moderate Pain (Pain Scale 4-6) 06/29/17 10:15 07/06/17 10:14 Amlodipine Besylate (Norvasc) 5 mg DAILY ORAL 06/30/17 09:00 07/30/17 08:59 06/30/17 09:34 Aztreonam 0.5 gm/ Dextrose 55 ml @ 110 mls/hr Q8HR IVPB 06/29/17 22:00 07/06/17 21:59 06/30/17 13:07 Dextrose (Dextrose 50%) 25 ml STAT PRN IV Hypoglycemia 06/29/17 12:00 07/29/17 11:59 Dextrose (Dextrose 50%) 50 ml STAT PRN IV Hypoglycemia 06/29/17 12:00 07/29/17 11:59 Docusate Sodium (Colace) 100 mg DAILY ORAL 06/30/17 09:00 07/30/17 08:59 06/30/17 09:34 Ferrous Sulfate (Feosol) 325 mg DAILY ORAL 06/30/17 09:00 07/30/17 08:59 06/30/17 09:34 Folic Acid (Folate) 1 mg DAILY ORAL 06/30/17 09:00 07/30/17 08:59 06/30/17 09:34 Gadobutrol (Gadavist) 7.5 mmol NOW PRN IV Radiology Procedure 06/29/17 14:30 07/03/17 14:20 Heparin Sodium/ Dextrose 500 ml @ 31.842 mls/ hr adjust per protocol IV 06/29/17 13:00 07/29/17 12:59 06/29/17 21:06 Insulin Aspart (NovoLOG) BEFORE MEALS AND HS SUBQ 06/29/17 12:00 07/29/17 11:59 06/30/17 11:44 Insulin Aspart (NovoLOG) 6 units NOVOTIAC SUBQ 06/29/17 11:50 07/29/17 11:49 06/30/17 11:44 Insulin Detemir (Levemir) 15 units Q12HR SUBQ 06/29/17 21:00 07/29/17 20:59 06/30/17 09:33 Iopamidol (Isovue-370 150ml) 150 ml NOW PRN INJ Radiology Procedure 06/29/17 01:00 07/01/17 00:52 Lansoprazole (Prevacid) 30 mg DAILY ORAL 06/30/17 09:00 07/30/17 08:59 06/30/17 09:34 Metronidazole (Flagyl) 500 mg Q8HR ORAL 06/30/17 22:00 07/07/17 21:59 Morphine Sulfate (Morphine Sulfate) 2 mg Q4H PRN IV Severe Pain (Pain Scale 7-10) 06/29/17 10:15 07/06/17 10:14 Vancomycin HCl (Vanco rx to dose) 1 ea DAILY PRN MISC Per rx protocol 06/29/17 21:00 07/29/17 20:59 Vancomycin HCl/ Dextrose 250 ml @ 166.667 mls/hr Q36H IVPB 07/01/17 11:00 07/06/17 10:59 Ruby Richmond MD June 30, 2017 15:48
[2017-06-30 16:00] VITALS: BP 128/75
[2017-06-30] MEDS: Heparin 25,000u/D5W 500ml 500 ML IV SCH (17:45)
[2017-06-30 20:49] VITALS: BP 155/81
[2017-07-01] VITALS: BP 149/89
[2017-07-01 04:00] VITALS: BP 147/88
[2017-07-01 05:13] LABS: ALANINE AMINOTRANSFERASE 16 U/L (12-78); ALBUMIN 2.5 G/DL (3.4-5.0); ALBUMIN/GLOBULIN RATIO 0.5 (1.0-2.7); ALKALINE PHOSPHATASE 68 U/L (46-116); ANION GAP 11 mmol/L (5-15); ASPARTATE AMINO TRANSFERASE 10 U/L (15-37); BILIRUBIN,TOTAL 0.3 MG/DL (0.2-1.0); BLOOD UREA NITROGEN 31 mg/dL (7-18); CALCIUM 9.5 MG/DL (8.5-10.1); CARBON DIOXIDE 22 MMOL/L (21-32); CHLORIDE 107 MMOL/L (98-107); CREATININE 1.9 MG/DL (0.55-1.30); POTASSIUM 4.1 MMOL/L (3.5-5.1); SODIUM 140 MMOL/L (136-145)
[2017-07-01] MEDS: metroNIDAZOLE 500mg tab ORAL SCH ×3 (05:32→22:20)
[2017-07-01] MEDS: Aztreonam Inj 0.5 GM in D5W 55 ML IVPB SCH ×3 (05:33→22:20)
[2017-07-01] MEDS: NovoLOG Insulin Flexpen SUBQ SCH ×7 (06:14→21:00)
[2017-07-01 08:00] VITALS: BP 153/93
[2017-07-01] MEDS: Docusate 100mg cap ORAL SCH (08:08)
[2017-07-01] MEDS: Levemir Flexpen SUBQ SCH ×2 (08:09→21:06)
[2017-07-01] MEDS: Heparin 25,000u/D5W 500ml 500 ML IV SCH (10:43)
--- NOTE | 2017-07-01 10:59 | Infectious Diseases Prog Note ---
Assessment/Plan Assessment/Plan Abx: IV Vanco 06/29- Aztreonam 06/29- Assessment: Diabetic foot ulcers- worsening w/ New L foot ulceration c/w abscess, worsening and extensive OM despite previous appropriate medical tx (I+D, and prolonged IV abx tx) - -prior L lateral ankle wound healing -MRI L Foot 06/30: Abnormal fluid collection in the medial aspect of the ankle measuring approximately 4x 1.7 x 12 cm suspicious for abscess. Evidence of progressively worsening signal alteration presumably osteomyelitis involving bilateral malleolus regions, distal tibia plafond, talus and possibly the upper part of the calcaneus. -wound cx NTD -A. duplex done here: no significant stenosis or occlusion -a. duplex at [facility]: mild stenosis in left superficial femoral artery, left popliteal artery, monophasic -06/30 ESR 104, CRP 3.5 (decreased from prior) Afebrile, no leukocytosis Hx of Sepsis 2ry to L Leg cellulitis., large abscess (polymicrobial), infected ankle wound and OM c/w polymicrobial bacteremia and fungemia April 2017, s/p Rx -MRI L leg: Positive for osteomyelitis of the distal fibula, with evidence of bony destruction. More subtle marrow changes as described in the talus and calcaneus, also suspicious for osteomyelitis. Evidence of soft tissue cellulitis both laterally and medially. No drainable abscess. Abnormal peroneus longus tendon, may indicate inflammation or infection. Possible damage to the distal peroneus brevis tendon - s/p bedside I+D 04/23: large abscess in left distal lateral leg down to muscle and tendon. large area of fluctuance. 50-75cc of pus evacuated; wound cx +1 K.pna (grissom S), +4 E. fecalis (grissom S) -Xray R tibia/fibula/ankle: Evidence of multiple lateral soft tissue ulcers in the distal leg and ankle. Evidence of destructive change of the distal fibula. This is highly suspicious for acute osteomyelitis. No acute bony trauma -wound cx from purulent discharge 04/22 #1: +2 MRSA, <1+ E. aerogens (S Ceftriaxone), +4 GBS; #2 +2 MRSA (S tetracycline, bactrim, vanco), +4 E. aerogens (S Ceftriaxone), E fecalis (grissom S) -ESR 116, CRP 27.7> 3/17 >70; 04/30 14.7> 12.8 05/03 - -Bcx 04/21 2/ + GBS, 2/ CoNS, 02/13MRSA, Bcx 04/22 1 C. glabrata; 04/25 Bcx NTD; Bcx 04/27 2/4 S. epi (from same bottle) ; 04/28 BCx Neg -Echo:Limited (poor acoustic views)- no vegetations, no significant valve abnormalities -CT chest/abd/p wo: no abscess Dm2 HTN hx of R transmetatarsal amputation GERD CKD st 4 MDD anxiety reported PNC allergy- however tolerates Amoxicillin per daughter and tolerated Ceftriaxone 04/2017 VRE colonized Plan: -Continue empiric IV vanco and Aztreonam #3 and PO Flagyl #2 for now pending wound culture -06/01 SP Ceftriaxone and Daptomycin #42 -05/08 SP Micafungin #14 -05/06 PO Flagyl #14 -04/30 SP IV Vancomycin #7 -04/23 SP IV Vancomycin #2 and Clindamycin #2 -04/22 SP IV Aztreonam #2 -Gen Sx following- will likely need amputation given failure to maximum medical treatment. -Monitor CBC/BMP, temperatures -wound care Thank you for this consultation. Will continue to follow along with you. Discussed with RN and Dr gottlieb Subjective Allergies: Coded Allergies: PENICILLINS (Verified Allergy, Severe, SWOLLEN BODY, 04/23/17) Per Daughter, patient has tolerated Amoxicillin Tolerated Ceftriaxone 04/22/17 Uncoded Allergies: Blood Transfusion (Adverse Reaction, Unknown, 06/29/17) Pt states that she develops lower extremity wounds after blood transfusions Subjective afebrile no leukocytosis Objective Vital Signs Last 24 Hour Vital Signs Date Time Temp Pulse Resp B/P (MAP) Pulse Ox O2 Delivery O2 Flow Rate FiO2 07/01/17 08:08 80 153/93 07/01/17 08:00 98.1 80 20 153/93 97 Room Air 98.1 07/01/17 04:00 98.1 80 18 147/88 98 98.1 07/01/17 04:00 Room Air 07/01/17 00:00 97.7 83 19 149/89 100 97.7 07/01/17 00:00 Room Air 06/30/17 20:49 97.8 84 18 155/81 100 97.8 06/30/17 20:00 Room Air 06/30/17 16:00 98.1 98 19 128/75 97 Room Air 98.1 06/30/17 12:00 99.0 86 20 151/95 99 99.0 Height (Feet): 5 Height (Inches): 0.00 Weight (Pounds): 234 Objective General Appearance: WD/WN, no apparent distress, alert, obese Lines, tubes and drains: peripheral HEENT: normocephalic, atraumatic, anicteric, mucous membranes moist, PERRL Neck: non-tender, normal alignment, supple Respiratory/Chest: chest wall non-tender, lungs clear, no respiratory distress , no accessory muscle use Cardiovascular/Chest: normal rate, regular rhythm, no JVD Abdomen: normal bowel sounds, non tender - obese, soft Extremities: no calf tenderness, normal capillary refill, other - Left foot: ulcer on planter aspect behind 1st and 2nd toe with puruelent discahrge, fluid collection on surrounding area of medial malleous; prior lateral maleolar wound healing, no discharge. right transmetatarsal amputation Neurologic: abnormal gait, alert, responsive, normal mood/affect Musculoskeletal: normal muscle bulk Microbiology Date/Time Source Procedure Growth Status 06/29/17 05:45 Wound Gram Stain - Final Resulted 06/29/17 05:45 Wound Wound Culture - Preliminary NO GROWTH AFTER 48 HOURS Resulted 06/29/17 05:45 Nasal Nares MRSA Culture - Final NO METHICILLIN RESISTANT STAPH AUREUS... Complete 06/29/17 05:45 Rectum VRE Culture - Final Enterococcus Faecium - Vre Complete Laboratory Tests Test 07/01/17 04:15 Erythrocyte Sedimentation Rate 104 MM/HR (0-30) H Activated Partial Thromboplast Time 71 SEC (23-33) H Sodium Level 140 MMOL/L (136-145) Potassium Level 4.1 MMOL/L (3.5-5.1) Chloride Level 107 MMOL/L (98-107) Carbon Dioxide Level 22 MMOL/L (21-32) Anion Gap 11 mmol/L (5-15) Blood Urea Nitrogen 31 mg/dL (7-18) H Creatinine 1.9 MG/DL (0.55-1.30) H Estimat Glomerular Filtration Rate 33.6 mL/min (>60) Glucose Level 111 MG/DL (74-106) H Calcium Level 9.5 MG/DL (8.5-10.1) Total Bilirubin 0.3 MG/DL (0.2-1.0) Aspartate Amino Transf (AST/SGOT) 10 U/L (15-37) L Alanine Aminotransferase (ALT/SGPT) 16 U/L (12-78) Alkaline Phosphatase 68 U/L (46-116) C-Reactive Protein, Quantitative 3.5 mg/dL (0.00-0.90) H Total Protein 7.2 G/DL (6.4-8.2) Albumin 2.5 G/DL (3.4-5.0) L Globulin 4.7 g/dL Albumin/Globulin Ratio 0.5 (1.0-2.7) L Current Medications Medications (Trade) Dose Ordered Sig/Artemio Route PRN Reason Start Time Stop Time Status Last Admin Dose Admin Acetaminophen (Tylenol) 325 mg Q4H PRN ORAL Mild Pain / T>100.5 06/29/17 10:15 07/29/17 10:14 Acetaminophen/ Hydrocodone Bitart (Triplett 5/325) 1 tab Q6H PRN ORAL Moderate Pain (Pain Scale 4-6) 06/29/17 10:15 07/06/17 10:14 Amlodipine Besylate (Norvasc) 5 mg DAILY ORAL 06/30/17 09:00 07/30/17 08:59 07/01/17 08:08 Aztreonam 0.5 gm/ Dextrose 55 ml @ 110 mls/hr Q8HR IVPB 06/29/17 22:00 07/06/17 21:59 07/01/17 05:33 Dextrose (Dextrose 50%) 25 ml STAT PRN IV Hypoglycemia 06/29/17 12:00 07/29/17 11:59 Dextrose (Dextrose 50%) 50 ml STAT PRN IV Hypoglycemia 06/29/17 12:00 07/29/17 11:59 Docusate Sodium (Colace) 100 mg DAILY ORAL 06/30/17 09:00 07/30/17 08:59 07/01/17 08:08 Ferrous Sulfate (Feosol) 325 mg DAILY ORAL 06/30/17 09:00 07/30/17 08:59 07/01/17 08:08 Folic Acid (Folate) 1 mg DAILY ORAL 06/30/17 09:00 07/30/17 08:59 07/01/17 08:07 Gadobutrol (Gadavist) 7.5 mmol NOW PRN IV Radiology Procedure 06/29/17 14:30 07/03/17 14:20 Heparin Sodium/ Dextrose 500 ml @ 31.842 mls/ hr adjust per protocol IV 06/29/17 13:00 07/29/17 12:59 07/01/17 10:43 Insulin Aspart (NovoLOG) BEFORE MEALS AND HS SUBQ 06/29/17 12:00 07/29/17 11:59 07/01/17 08:10 Insulin Aspart (NovoLOG) 6 units NOVOTIAC SUBQ 06/29/17 11:50 07/29/17 11:49 07/01/17 08:15 Insulin Detemir (Levemir) 15 units Q12HR SUBQ 06/29/17 21:00 07/29/17 20:59 07/01/17 08:09 Lansoprazole (Prevacid) 30 mg DAILY ORAL 06/30/17 09:00 07/30/17 08:59 07/01/17 08:07 Metronidazole (Flagyl) 500 mg Q8HR ORAL 06/30/17 22:00 07/07/17 21:59 07/01/17 05:32 Morphine Sulfate (Morphine Sulfate) 2 mg Q4H PRN IV Severe Pain (Pain Scale 7-10) 06/29/17 10:15 07/06/17 10:14 Vancomycin HCl (Vanco rx to dose) 1 ea DAILY PRN MISC Per rx protocol 06/29/17 21:00 07/29/17 20:59 Vancomycin HCl/ Dextrose 250 ml @ 166.667 mls/hr Q36H IVPB 07/01/17 11:00 07/06/17 10:59 Faye Foy M.D. July 01, 2017 10:59
[2017-07-01] MEDS ORDERED: Vancomycin 1gm in D5W 275ml IVPB SCH (11:00)
[2017-07-01] MEDS: Vancomycin 1250mg/D5W 250ml IVPB SCH (11:11)
[2017-07-01 12:00] VITALS: BP 141/90
--- NOTE | 2017-07-01 13:44 | General Surgery Progress Note ---
General Surgery-Progress Note Subjective Additional Comments MRI reviewed. no acute events since. doing well. Objective Last 24 Hour Vital Signs Date Time Temp Pulse Resp B/P (MAP) Pulse Ox O2 Delivery O2 Flow Rate FiO2 07/01/17 12:00 98.0 77 18 141/90 99 Room Air 98.0 07/01/17 08:08 80 153/93 07/01/17 08:00 98.1 80 20 153/93 97 Room Air 98.1 07/01/17 04:00 98.1 80 18 147/88 98 98.1 07/01/17 04:00 Room Air 07/01/17 00:00 97.7 83 19 149/89 100 97.7 07/01/17 00:00 Room Air 06/30/17 20:49 97.8 84 18 155/81 100 97.8 06/30/17 20:00 Room Air 06/30/17 16:00 98.1 98 19 128/75 97 Room Air 98.1 I&O Intake and Output 06/30/17 07/01/17 19:00 07:00 Intake Total 879.722 ml 523.946 ml Output Total 0 ml Balance 879.722 ml 523.946 ml Intake Oral 450 ml IV Total 309.722 ml 523.946 ml Other 120 ml Stool Total 0 ml # Voids 1 2 Drains: none Cardiovascular: RSR Respiratory: clear Abdomen: soft, flat, non-tender, present bowel sounds Extremities: other - right s/p foot amputation. left with fluctuance around ankle. Laboratory Tests Test 07/01/17 04:15 Erythrocyte Sedimentation Rate 104 MM/HR (0-30) H Activated Partial Thromboplast Time 71 SEC (23-33) H Sodium Level 140 MMOL/L (136-145) Potassium Level 4.1 MMOL/L (3.5-5.1) Chloride Level 107 MMOL/L (98-107) Carbon Dioxide Level 22 MMOL/L (21-32) Anion Gap 11 mmol/L (5-15) Blood Urea Nitrogen 31 mg/dL (7-18) H Creatinine 1.9 MG/DL (0.55-1.30) H Estimat Glomerular Filtration Rate 33.6 mL/min (>60) Glucose Level 111 MG/DL (74-106) H Calcium Level 9.5 MG/DL (8.5-10.1) Total Bilirubin 0.3 MG/DL (0.2-1.0) Aspartate Amino Transf (AST/SGOT) 10 U/L (15-37) L Alanine Aminotransferase (ALT/SGPT) 16 U/L (12-78) Alkaline Phosphatase 68 U/L (46-116) C-Reactive Protein, Quantitative 3.5 mg/dL (0.00-0.90) H Total Protein 7.2 G/DL (6.4-8.2) Albumin 2.5 G/DL (3.4-5.0) L Globulin 4.7 g/dL Albumin/Globulin Ratio 0.5 (1.0-2.7) L Plan Problems: (1) Diabetic foot ulcer Assessment & Plan: diabetic foot with worsening overall condition. now new ulcers and fluid collections/edema. slowly healing. less motor function. unfortunately slowly worsening. MRI with abnormal medial fluid collection likely abscess and worsening osteo -bedside I&D performed -packing and dressings TID -cont Abx -will likely need amputation. does not seem salvageable after weeks of maximal medical therapy Sandro Ramirez July 01, 2017 13:44
--- NOTE | 2017-07-01 14:03 | Operative Note - PDOC ---
Operative Note Operative Note Date of Operation/Procedure: July 01, 2017 Pre-op Diagnosis: medial left ankle abscess Procedure: incision and drainage of left ankle abscess Post-op Diagnosis: same as pre-op Surgeon: chery Specimen: yes - cultures Complications: none Condition: stable Estimated Blood Loss: minimal Drains: none Implant(s) used?: No Indications for Procedure 51F with prior left lower extremity abscess who presents with new abscess on left ankle. MRI demonstrates abnormal fluid collection likely abscess and on exam area of fluctuance at distal left ankle. risks, benefits, and alternatives discussed in detail. patient consented to procedure which was done at bedside. Description of Procedure Left leg prepped and draped around abscess. surgical #15 scalpel and scissors used to make cruciate incision around area of max fluctuance. purulent exudate evacuated and cultures taken. wound irrigated and cleaned. packing and dressings applied. abscess cavity with 25-50cc pus. medial left distal leg/ ankle. abscess cavity 10cm x 5cm and down to bone. no other tracking noted. Sandro Ramirez July 01, 2017 14:03
--- NOTE | 2017-07-01 14:26 | Pulmonology Progress Note ---
Assessment/Plan Problems: (1) Diabetic foot ulcer (2) CKD (chronic kidney disease) (3) Diabetes mellitus (4) Diabetic nephropathy (5) Anemia in chronic kidney disease Assessment/Plan podiatry, surgery consult ID f/u awaiting cultures check cultures sliding scale diabetic diet insulin coverage./ Subjective ROS Limited/Unobtainable: No Constitutional: Reports: no symptoms HEENT: Repors: no symptoms Respiratory: Reports: no symptoms Allergies: Coded Allergies: PENICILLINS (Verified Allergy, Severe, SWOLLEN BODY, 04/23/17) Per Daughter, patient has tolerated Amoxicillin Tolerated Ceftriaxone 04/22/17 Uncoded Allergies: Blood Transfusion (Adverse Reaction, Unknown, 06/29/17) Pt states that she develops lower extremity wounds after blood transfusions Objective Last 24 Hour Vital Signs Date Time Temp Pulse Resp B/P (MAP) Pulse Ox O2 Delivery O2 Flow Rate FiO2 07/01/17 12:00 98.0 77 18 141/90 99 Room Air 98.0 07/01/17 08:08 80 153/93 07/01/17 08:00 98.1 80 20 153/93 97 Room Air 98.1 07/01/17 04:00 98.1 80 18 147/88 98 98.1 07/01/17 04:00 Room Air 07/01/17 00:00 97.7 83 19 149/89 100 97.7 07/01/17 00:00 Room Air 06/30/17 20:49 97.8 84 18 155/81 100 97.8 06/30/17 20:00 Room Air 06/30/17 16:00 98.1 98 19 128/75 97 Room Air 98.1 Intake and Output 06/30/17 07/01/17 19:00 07:00 Intake Total 879.722 ml 523.946 ml Output Total 0 ml Balance 879.722 ml 523.946 ml Intake Oral 450 ml IV Total 309.722 ml 523.946 ml Other 120 ml Stool Total 0 ml # Voids 1 2 General Appearance: WD/WN HEENT: normocephalic Respiratory/Chest: chest wall non-tender, lungs clear Breasts: no masses Cardiovascular: normal peripheral pulses Abdomen: normal bowel sounds, soft, non tender Extremities: no cyanosis Skin: no lesions Neurologic/Psychiatric: neuroradiologist II-XII grossly normal Microbiology Date/Time Source Procedure Growth Status 06/29/17 05:45 Wound Gram Stain - Final Resulted 06/29/17 05:45 Wound Wound Culture - Preliminary NO GROWTH AFTER 48 HOURS Resulted 06/29/17 05:45 Nasal Nares MRSA Culture - Final NO METHICILLIN RESISTANT STAPH AUREUS... Complete 06/29/17 05:45 Rectum VRE Culture - Final Enterococcus Faecium - Vre Complete Laboratory Tests 07/01/17 04:15: Erythrocyte Sedimentation Rate 104H, Activated Partial Thromboplast Time 71H, Sodium Level 140, Potassium Level 4.1, Chloride Level 107, Carbon Dioxide Level 22, Anion Gap 11, Blood Urea Nitrogen 31H, Creatinine 1.9H, Estimat Glomerular Filtration Rate 33.6, Glucose Level 111H, Calcium Level 9.5, Total Bilirubin 0.3 , Aspartate Amino Transf (AST/SGOT) 10L, Alanine Aminotransferase (ALT/SGPT) 16 , Alkaline Phosphatase 68, C-Reactive Protein, Quantitative 3.5H, Total Protein 7.2, Albumin 2.5L, Globulin 4.7, Albumin/Globulin Ratio 0.5L Current Medications Medications (Trade) Dose Ordered Sig/Artemio Route PRN Reason Start Time Stop Time Status Last Admin Dose Admin Acetaminophen (Tylenol) 325 mg Q4H PRN ORAL Mild Pain / T>100.5 06/29/17 10:15 07/29/17 10:14 Acetaminophen/ Hydrocodone Bitart (Page 5/325) 1 tab Q6H PRN ORAL Moderate Pain (Pain Scale 4-6) 06/29/17 10:15 07/06/17 10:14 Amlodipine Besylate (Norvasc) 5 mg DAILY ORAL 06/30/17 09:00 07/30/17 08:59 07/01/17 08:08 Aztreonam 0.5 gm/ Dextrose 55 ml @ 110 mls/hr Q8HR IVPB 06/29/17 22:00 07/06/17 21:59 07/01/17 05:33 Dextrose (Dextrose 50%) 25 ml STAT PRN IV Hypoglycemia 06/29/17 12:00 07/29/17 11:59 Dextrose (Dextrose 50%) 50 ml STAT PRN IV Hypoglycemia 06/29/17 12:00 07/29/17 11:59 Docusate Sodium (Colace) 100 mg DAILY ORAL 06/30/17 09:00 07/30/17 08:59 07/01/17 08:08 Ferrous Sulfate (Feosol) 325 mg DAILY ORAL 06/30/17 09:00 07/30/17 08:59 07/01/17 08:08 Folic Acid (Folate) 1 mg DAILY ORAL 06/30/17 09:00 07/30/17 08:59 07/01/17 08:07 Gadobutrol (Gadavist) 7.5 mmol NOW PRN IV Radiology Procedure 06/29/17 14:30 07/03/17 14:20 Heparin Sodium/ Dextrose 500 ml @ 31.842 mls/ hr adjust per protocol IV 06/29/17 13:00 07/29/17 12:59 07/01/17 10:43 Insulin Aspart (NovoLOG) BEFORE MEALS AND HS SUBQ 06/29/17 12:00 07/29/17 11:59 07/01/17 11:54 Insulin Aspart (NovoLOG) 6 units NOVOTIAC SUBQ 06/29/17 11:50 07/29/17 11:49 07/01/17 12:20 Insulin Detemir (Levemir) 15 units Q12HR SUBQ 06/29/17 21:00 07/29/17 20:59 07/01/17 08:09 Lansoprazole (Prevacid) 30 mg DAILY ORAL 06/30/17 09:00 07/30/17 08:59 07/01/17 08:07 Metronidazole (Flagyl) 500 mg Q8HR ORAL 06/30/17 22:00 07/07/17 21:59 07/01/17 05:32 Morphine Sulfate (Morphine Sulfate) 2 mg Q4H PRN IV Severe Pain (Pain Scale 7-10) 06/29/17 10:15 07/06/17 10:14 Vancomycin HCl (Vanco rx to dose) 1 ea DAILY PRN MISC Per rx protocol 06/29/17 21:00 07/29/17 20:59 Vancomycin HCl/ Dextrose 250 ml @ 166.667 mls/hr Q36H IVPB 07/01/17 11:00 07/06/17 10:59 07/01/17 11:11 Ruby Richmond MD July 01, 2017 14:26
[2017-07-01 16:06] VITALS: BP 149/88
[2017-07-01 20:28] VITALS: BP 134/79
--- NOTE | 2017-07-01 20:45 | Consultation ---
DATE OF CONSULTATION: 07/01/2017 VASCULAR SURGERY CONSULTATION CONSULTING PHYSICIAN: Brooklyn Fish M.D. REFERRING PHYSICIANS: 1. Sarah Peralta N.P. 2. Bruce Richmond M.D. 3. Zay Schwarz D.P.M. REASON FOR CONSULTATION: Lower extremity wound. HISTORY OF PRESENT COMPLAINT: This is a 51-year-old female, who suffers from diabetes mellitus, renal insufficiency, hypertension, previous right foot amputation in the past, has presented with worsening left foot infection on the ankle, wound infection with osteomyelitis. She reports to have seen several doctors on an outpatient basis for wound care. The patient recently underwent incision and debridement of the left ankle abscess by another surgeon. The patient is currently on antibiotics. Vascular Surgery is consulted for further evaluation. She reports to ambulate with some difficulty, is a former smoker. PAST MEDICAL HISTORY: As above, history of diabetes mellitus, hypertension, obesity, right foot amputation, left foot ulceration and infection, anemia, renal failure, and former smoker. MEDICATIONS: See attached MAR. ALLERGIES: She is allergic to penicillin. SOCIAL HISTORY: No current history of smoking, drugs, or alcohol abuse. She is single with 2 kids. Resides now [place] in [place]. FAMILY HISTORY: Unremarkable. REVIEW OF SYSTEMS: CARDIOVASCULAR: No history of chest pain or palpitations. PULMONARY: No cough. No hemoptysis. GASTROINTESTINAL: No history of abdominal pain, constipation, or diarrhea. GENITOURINARY: No urinary symptoms. NEUROLOGICAL: No history of stroke or seizures. PHYSICAL EXAMINATION: VITAL SIGNS: The patient is afebrile at 98 degrees, heart rate 80, blood pressure is 150/95, respirations 20, and saturation 99%. NECK: She has palpable radial pulses. No evidence of carotid bruits. LUNGS: Clear to auscultation bilaterally. HEART: Regular rate and rhythm. ABDOMEN: Soft, nontender. EXTREMITIES: She has palpable femoral pulses, intact popliteal and strongly palpable 3+ dorsalis pedis pulse. Feet are warm, with intact right proximal amputation. Left foot distal toe ulceration and dry skin changes with larger left foot plantar open wound and a left ankle wound. Her feet are well perfused. LABORATORY AND DIAGNOSTIC DATA: WBC of 6.9, hemoglobin 9.3, and platelet count is 276. Her sodium is 140, potassium 4.1, BUN is 31, creatinine 1.9, and glucose is 111. Duplex and x-ray and MRI images were reviewed. IMPRESSION: 1. Palpable bilateral dorsalis pedis pulses with no significant arterial ischemia or insufficiency. 2. Extensive left foot infection with osteomyelitis noted on MRI, status post recent left ankle abscess drainage. 3. Multiple risk factors with morbid obesity, hypertension, diabetes mellitus, former smoker, anemia, and renal failure. PLAN AND RECOMMENDATION: Aggressive foot wound care per Podiatry. Continue antibiotics per Infectious Disease Service. DVT and decubitus precautions. No vascular revascularization is warranted at the present time with palpable pedal pulses. The above was discussed at length with the patient and the patient's nurse, Sarah Peralta, and Dr. Zay Schwarz. Brooklyn Fish M.D. DR: RICARDA JOB#: [id number] CC: Ramana FunkPSabrina; Fax#: [phone] BRUCE RICHMOND M.D. ; FAX#: [phone] SARAH PERALTA ([facility]), N.P.; FAX#: [phone] BROOKLYN FISH M.D.; FAX#: [phone] [facility] SYSTEM[facility]
--- NOTE | 2017-07-01 23:33 | General Progress Note ---
Assessment/Plan Assessment/Plan Anxiety d/o dm ativan prn rec ssirs Subjective Date patient seen: July 01, 2017 Neurologic/Psychiatric: Reports: anxiety, emotional problems Allergies: Coded Allergies: PENICILLINS (Verified Allergy, Severe, SWOLLEN BODY, 04/23/17) Per Daughter, patient has tolerated Amoxicillin Tolerated Ceftriaxone 04/22/17 Uncoded Allergies: Blood Transfusion (Adverse Reaction, Unknown, 06/29/17) Pt states that she develops lower extremity wounds after blood transfusions Objective Last 24 Hour Vital Signs Date Time Temp Pulse Resp B/P (MAP) Pulse Ox O2 Delivery O2 Flow Rate FiO2 07/01/17 20:28 98.3 85 16 134/79 99 98.3 07/01/17 16:06 98.2 83 20 149/88 100 98.2 07/01/17 12:00 98.0 77 18 141/90 99 Room Air 98.0 07/01/17 08:08 80 153/93 07/01/17 08:00 98.1 80 20 153/93 97 Room Air 98.1 07/01/17 04:00 98.1 80 18 147/88 98 98.1 07/01/17 04:00 Room Air 07/01/17 00:00 97.7 83 19 149/89 100 97.7 07/01/17 00:00 Room Air Intake and Output 06/30/17 07/01/17 19:00 07:00 Intake Total 879.722 ml 523.946 ml Output Total 0 ml Balance 879.722 ml 523.946 ml Intake Oral 450 ml IV Total 309.722 ml 523.946 ml Other 120 ml Stool Total 0 ml # Voids 1 2 Laboratory Tests 07/01/17 04:15: Erythrocyte Sedimentation Rate 104H, Activated Partial Thromboplast Time 71H, Sodium Level 140, Potassium Level 4.1, Chloride Level 107, Carbon Dioxide Level 22, Anion Gap 11, Blood Urea Nitrogen 31H, Creatinine 1.9H, Estimat Glomerular Filtration Rate 33.6, Glucose Level 111H, Calcium Level 9.5, Total Bilirubin 0.3 , Aspartate Amino Transf (AST/SGOT) 10L, Alanine Aminotransferase (ALT/SGPT) 16 , Alkaline Phosphatase 68, C-Reactive Protein, Quantitative 3.5H, Total Protein 7.2, Albumin 2.5L, Globulin 4.7, Albumin/Globulin Ratio 0.5L Height (Feet): 5 Height (Inches): 0.00 Weight (Pounds): 234 General Appearance: WD/WN, no apparent distress, alert Neurologic: oriented x 3, responsive, depressed affect Remington Kimbrough M.D. July 01, 2017 23:33
[2017-07-02 00:18] VITALS: BP 150/90
[2017-07-02] MEDS: Heparin 25,000u/D5W 500ml 500 ML IV SCH (03:17)
[2017-07-02 04:00] VITALS: BP 151/88
[2017-07-02 04:35] LABS: BASOPHILS % (AUTO) 1.1 % (0.0-2.0); EOSINOPHILS % (AUTO) 2.7 % (0.0-3.0); HEMATOCRIT 30.2 % (37.0-47.0); HEMOGLOBIN 9.4 G/DL (12.0-16.0); LYMPHOCYTES % (AUTO) 30.4 % (20.0-45.0); MEAN CORPUSCULAR VOLUME 86 FL (80-99); MONOCYTES % (AUTO) 9.2 % (1.0-10.0); NEUTROPHILS % (AUTO) 56.6 % (45.0-75.0); PLATELET COUNT 273 K/UL (150-450); RED BLOOD COUNT 3.52 M/UL (4.20-5.40); RED CELL DISTRIBUTION WIDTH 15.2 % (11.6-14.8); WHITE BLOOD COUNT 6.5 K/UL (4.8-10.8)
[2017-07-02] MEDS: NovoLOG Insulin Flexpen SUBQ SCH ×7 (05:58→20:49)
[2017-07-02] MEDS: Aztreonam Inj 0.5 GM in D5W 55 ML IVPB SCH ×3 (05:59→21:56)
[2017-07-02] MEDS: metroNIDAZOLE 500mg tab ORAL SCH ×3 (05:59→20:48)
[2017-07-02 08:00] VITALS: BP 157/94
--- NOTE | 2017-07-02 08:21 | General Surgery Progress Note ---
General Surgery-Progress Note Subjective Procedure Performed incision and drainage of left ankle abscess Symptoms: improved, tolerating diet Objective Last 24 Hour Vital Signs Date Time Temp Pulse Resp B/P (MAP) Pulse Ox O2 Delivery O2 Flow Rate FiO2 07/02/17 04:00 98.0 85 18 151/88 99 98.0 07/02/17 04:00 Room Air 07/02/17 00:18 98.0 86 16 150/90 96 98.0 07/02/17 00:00 Room Air 07/01/17 20:28 98.3 85 16 134/79 99 98.3 07/01/17 16:06 98.2 83 20 149/88 100 98.2 07/01/17 12:00 98.0 77 18 141/90 99 Room Air 98.0 I&O Intake and Output 07/01/17 07/02/17 19:00 07:00 Intake Total 2341.754 ml 1060.263 ml Balance 2341.754 ml 1060.263 ml Intake Oral 1580 ml 600 ml IV Total 761.754 ml 460.263 ml # Voids 5 3 # Bowel Movements 1 Cardiovascular: RSR Respiratory: clear Abdomen: soft, flat, non-tender, present bowel sounds Extremities: edema, other - medial distal leg s/p I&D. no purulent drainage today and improved. Laboratory Tests Test 07/02/17 04:05 White Blood Count 6.5 K/UL (4.8-10.8) Red Blood Count 3.52 M/UL (4.20-5.40) L Hemoglobin 9.4 G/DL (12.0-16.0) L Hematocrit 30.2 % (37.0-47.0) L Mean Corpuscular Volume 86 FL (80-99) Mean Corpuscular Hemoglobin 26.7 PG (27.0-31.0) L Mean Corpuscular Hemoglobin Concent 31.0 G/DL (32.0-36.0) L Red Cell Distribution Width 15.2 % (11.6-14.8) H Platelet Count 273 K/UL (150-450) Mean Platelet Volume 7.7 FL (6.5-10.1) Neutrophils (%) (Auto) 56.6 % (45.0-75.0) Lymphocytes (%) (Auto) 30.4 % (20.0-45.0) Monocytes (%) (Auto) 9.2 % (1.0-10.0) Eosinophils (%) (Auto) 2.7 % (0.0-3.0) Basophils (%) (Auto) 1.1 % (0.0-2.0) Activated Partial Thromboplast Time 82 SEC (23-33) H Plan Problems: (1) Diabetic foot ulcer Assessment & Plan: diabetic foot with worsening overall condition. now new ulcers and fluid collections/edema. slowly healing. less motor function. unfortunately slowly worsening. MRI with abnormal medial fluid collection likely abscess and worsening osteo s/p I&D of medial ankle abscess. recovering. -packing and dressings TID -cont Abx for now. will continue medical therapy and wound care for now. -will likely need amputation. does not seem salvageable after weeks of maximal medical therapy Sandro Ramirez July 02, 2017 08:21
[2017-07-02] MEDS: Docusate 100mg cap ORAL SCH (08:37)
[2017-07-02] MEDS: Levemir Flexpen SUBQ SCH ×2 (08:42→20:49)
--- NOTE | 2017-07-02 11:49 | Infectious Diseases Prog Note ---
Assessment/Plan Assessment/Plan Assessment: Diabetic foot ulcers- worsening w/ New L foot ulceration c/w abscess, worsening and extensive OM despite previous appropriate medical tx (I+D, and prolonged IV abx tx) - -prior L lateral ankle wound healing -s/p I+D L medial ankle abscess 07/01: -OR findings: area of max fluctuance: abscess cavity with 25-50cc pus ; medial left distal leg/ankle: abscess cavity 10cm x 5cm and down to bone. no other tracking noted. -cx p -MRI L Foot 06/30: Abnormal fluid collection in the medial aspect of the ankle measuring approximately 4x 1.7 x 12 cm suspicious for abscess. Evidence of progressively worsening signal alteration presumably osteomyelitis involving bilateral malleolus regions, distal tibia plafond, talus and possibly the upper part of the calcaneus. -wound cx NTD -A. duplex done here: no significant stenosis or occlusion -a. duplex at [facility]: mild stenosis in left superficial femoral artery, left popliteal artery, monophasic -06/30 ESR 104, CRP 3.5 (decreased from prior) -Bcx NTD Afebrile, no leukocytosis Hx of Sepsis 2ry to L Leg cellulitis., large abscess (polymicrobial), infected ankle wound and OM c/w polymicrobial bacteremia and fungemia April 2017, s/p Rx -MRI L leg: Positive for osteomyelitis of the distal fibula, with evidence of bony destruction. More subtle marrow changes as described in the talus and calcaneus, also suspicious for osteomyelitis. Evidence of soft tissue cellulitis both laterally and medially. No drainable abscess. Abnormal peroneus longus tendon, may indicate inflammation or infection. Possible damage to the distal peroneus brevis tendon - s/p bedside I+D 04/23: large abscess in left distal lateral leg down to muscle and tendon. large area of fluctuance. 50-75cc of pus evacuated; wound cx +1 K.pna (grissom S), +4 E. fecalis (grissom S) -Xray R tibia/fibula/ankle: Evidence of multiple lateral soft tissue ulcers in the distal leg and ankle. Evidence of destructive change of the distal fibula. This is highly suspicious for acute osteomyelitis. No acute bony trauma -wound cx from purulent discharge 04/22 #1: +2 MRSA, <1+ E. aerogens (S Ceftriaxone), +4 GBS; #2 +2 MRSA (S tetracycline, bactrim, vanco), +4 E. aerogens (S Ceftriaxone), E fecalis (grissom S) -ESR 116, CRP 27.7> 04/26 >70; 04/30 14.7> 12.8 05/03 - -Bcx 04/21 2/4 + GBS, 2/4 CoNS, 02/13MRSA, Bcx 04/22 14 C. glabrata; 04/25 Bcx NTD; Bcx 04/27 2/4 S. epi (from same bottle) ; 04/28 BCx Neg -Echo:Limited (poor acoustic views)- no vegetations, no significant valve abnormalities -CT chest/abd/p wo: no abscess Dm2 HTN hx of R transmetatarsal amputation GERD CKD st 4 MDD anxiety reported PNC allergy- however tolerates Amoxicillin per daughter and tolerated Ceftriaxone 04/2017 VRE colonized Plan: -Continue empiric IV vanco and Aztreonam #4 and PO Flagyl #3 for now pending I+ D wound culture -06/01 SP Ceftriaxone and Daptomycin #42 -05/08 SP Micafungin #14 -05/06 PO Flagyl #14 -04/30 SP IV Vancomycin #7 -04/23 SP IV Vancomycin #2 and Clindamycin #2 -04/22 SP IV Aztreonam #2 -Gen Sx following- will likely need amputation given failure to maximum medical treatment. -Monitor CBC/BMP, temperatures -wound care Thank you for this consultation. Will continue to follow along with you. Discussed with RN. Subjective Allergies: Coded Allergies: PENICILLINS (Verified Allergy, Severe, SWOLLEN BODY, 04/23/17) Per Daughter, patient has tolerated Amoxicillin Tolerated Ceftriaxone 04/22/17 Uncoded Allergies: Blood Transfusion (Adverse Reaction, Unknown, 06/29/17) Pt states that she develops lower extremity wounds after blood transfusions Subjective afebrile no leukocytosis I+D of left medial ankle yesterday initial wound cx NTD Objective Vital Signs Last 24 Hour Vital Signs Date Time Temp Pulse Resp B/P (MAP) Pulse Ox O2 Delivery O2 Flow Rate FiO2 07/02/17 08:36 85 148/87 07/02/17 08:00 98.1 81 16 157/94 99 Room Air 98.1 07/02/17 04:00 98.0 85 18 151/88 99 98.0 07/02/17 04:00 Room Air 07/02/17 00:18 98.0 86 16 150/90 96 98.0 07/02/17 00:00 Room Air 07/01/17 20:28 98.3 85 16 134/79 99 98.3 07/01/17 16:06 98.2 83 20 149/88 100 98.2 07/01/17 12:00 98.0 77 18 141/90 99 Room Air 98.0 Height (Feet): 5 Height (Inches): 0.00 Weight (Pounds): 245 Objective General Appearance: WD/WN, no apparent distress, alert, obese Lines, tubes and drains: peripheral HEENT: normocephalic, atraumatic, anicteric, mucous membranes moist, PERRL Neck: non-tender, normal alignment, supple Respiratory/Chest: chest wall non-tender, lungs clear, no respiratory distress , no accessory muscle use Cardiovascular/Chest: normal rate, regular rhythm, no JVD Abdomen: normal bowel sounds, non tender - obese, soft Extremities: no calf tenderness, normal capillary refill, other - Left foot: dressings in place right transmetatarsal amputation Neurologic: abnormal gait, alert, responsive, normal mood/affect Musculoskeletal: normal muscle bulk Microbiology Date/Time Source Procedure Growth Status 06/30/17 05:35 Blood Blood Culture - Preliminary NO GROWTH AFTER 24 HOURS Resulted 06/30/17 05:30 Blood Blood Culture - Preliminary NO GROWTH AFTER 24 HOURS Resulted Laboratory Tests Test 07/02/17 04:05 White Blood Count 6.5 K/UL (4.8-10.8) Red Blood Count 3.52 M/UL (4.20-5.40) L Hemoglobin 9.4 G/DL (12.0-16.0) L Hematocrit 30.2 % (37.0-47.0) L Mean Corpuscular Volume 86 FL (80-99) Mean Corpuscular Hemoglobin 26.7 PG (27.0-31.0) L Mean Corpuscular Hemoglobin Concent 31.0 G/DL (32.0-36.0) L Red Cell Distribution Width 15.2 % (11.6-14.8) H Platelet Count 273 K/UL (150-450) Mean Platelet Volume 7.7 FL (6.5-10.1) Neutrophils (%) (Auto) 56.6 % (45.0-75.0) Lymphocytes (%) (Auto) 30.4 % (20.0-45.0) Monocytes (%) (Auto) 9.2 % (1.0-10.0) Eosinophils (%) (Auto) 2.7 % (0.0-3.0) Basophils (%) (Auto) 1.1 % (0.0-2.0) Activated Partial Thromboplast Time 82 SEC (23-33) H Current Medications Medications (Trade) Dose Ordered Sig/Artemio Route PRN Reason Start Time Stop Time Status Last Admin Dose Admin Acetaminophen (Tylenol) 325 mg Q4H PRN ORAL Mild Pain / T>100.5 06/29/17 10:15 07/29/17 10:14 Acetaminophen/ Hydrocodone Bitart ([place] 5/325) 1 tab Q6H PRN ORAL Moderate Pain (Pain Scale 4-6) 06/29/17 10:15 07/06/17 10:14 Amlodipine Besylate (Norvasc) 5 mg DAILY ORAL 06/30/17 09:00 07/30/17 08:59 07/02/17 08:36 Aztreonam 0.5 gm/ Dextrose 55 ml @ 110 mls/hr Q8HR IVPB 06/29/17 22:00 07/06/17 21:59 07/02/17 05:59 Dextrose (Dextrose 50%) 25 ml STAT PRN IV Hypoglycemia 06/29/17 12:00 07/29/17 11:59 Dextrose (Dextrose 50%) 50 ml STAT PRN IV Hypoglycemia 06/29/17 12:00 07/29/17 11:59 Docusate Sodium (Colace) 100 mg DAILY ORAL 06/30/17 09:00 07/30/17 08:59 07/02/17 08:37 Ferrous Sulfate (Feosol) 325 mg DAILY ORAL 06/30/17 09:00 07/30/17 08:59 07/02/17 08:37 Folic Acid (Folate) 1 mg DAILY ORAL 06/30/17 09:00 07/30/17 08:59 07/02/17 08:36 Gadobutrol (Gadavist) 7.5 mmol NOW PRN IV Radiology Procedure 06/29/17 14:30 07/03/17 14:20 Heparin Sodium/ Dextrose 500 ml @ 31.842 mls/ hr adjust per protocol IV 06/29/17 13:00 07/29/17 12:59 07/02/17 03:17 Insulin Aspart (NovoLOG) BEFORE MEALS AND HS SUBQ 06/29/17 12:00 07/29/17 11:59 07/02/17 05:58 Insulin Aspart (NovoLOG) 6 units NOVOTIAC SUBQ 06/29/17 11:50 07/29/17 11:49 07/02/17 08:41 Insulin Detemir (Levemir) 15 units Q12HR SUBQ 06/29/17 21:00 07/29/17 20:59 07/02/17 08:42 Lansoprazole (Prevacid) 30 mg DAILY ORAL 06/30/17 09:00 07/30/17 08:59 07/02/17 08:36 Metronidazole (Flagyl) 500 mg Q8HR ORAL 06/30/17 22:00 07/07/17 21:59 07/02/17 05:59 Morphine Sulfate (Morphine Sulfate) 2 mg Q4H PRN IV Severe Pain (Pain Scale 7-10) 06/29/17 10:15 07/06/17 10:14 Vancomycin HCl (Vanco rx to dose) 1 ea DAILY PRN MISC Per rx protocol 06/29/17 21:00 07/29/17 20:59 Vancomycin HCl/ Dextrose 250 ml @ 166.667 mls/hr Q36H IVPB 07/01/17 11:00 07/06/17 10:59 07/01/17 11:11 Faye Foy M.D. July 02, 2017 11:49
[2017-07-02 12:00] VITALS: BP 141/90
--- NOTE | 2017-07-02 12:46 | General Progress Note ---
Assessment/Plan Status: stable Assessment/Plan Anxiety d/o dm mdd ativan prn rec ssirs Subjective Date patient seen: July 02, 2017 Neurologic/Psychiatric: Reports: depressed, emotional problems Allergies: Coded Allergies: PENICILLINS (Verified Allergy, Severe, SWOLLEN BODY, 04/23/17) Per Daughter, patient has tolerated Amoxicillin Tolerated Ceftriaxone 04/22/17 Uncoded Allergies: Blood Transfusion (Adverse Reaction, Unknown, 06/29/17) Pt states that she develops lower extremity wounds after blood transfusions Subjective "Im sad but not depressed" Objective Last 24 Hour Vital Signs Date Time Temp Pulse Resp B/P (MAP) Pulse Ox O2 Delivery O2 Flow Rate FiO2 07/02/17 08:36 85 148/87 07/02/17 08:00 98.1 81 16 157/94 99 Room Air 98.1 07/02/17 04:00 98.0 85 18 151/88 99 98.0 07/02/17 04:00 Room Air 07/02/17 00:18 98.0 86 16 150/90 96 98.0 07/02/17 00:00 Room Air 07/01/17 20:28 98.3 85 16 134/79 99 98.3 07/01/17 16:06 98.2 83 20 149/88 100 98.2 Intake and Output 07/01/17 07/02/17 19:00 07:00 Intake Total 2341.754 ml 1060.263 ml Balance 2341.754 ml 1060.263 ml Intake Oral 1580 ml 600 ml IV Total 761.754 ml 460.263 ml # Voids 5 3 # Bowel Movements 1 Laboratory Tests 07/02/17 04:05: White Blood Count 6.5, Red Blood Count 3.52L, Hemoglobin 9.4L, Hematocrit 30.2L , Mean Corpuscular Volume 86, Mean Corpuscular Hemoglobin 26.7L, Mean Corpuscular Hemoglobin Concent 31.0L, Red Cell Distribution Width 15.2H, Platelet Count 273, Mean Platelet Volume 7.7, Neutrophils (%) (Auto) 56.6, Lymphocytes (%) (Auto) 30.4, Monocytes (%) (Auto) 9.2, Eosinophils (%) (Auto) 2.7, Basophils (%) (Auto) 1.1, Activated Partial Thromboplast Time 82H Height (Feet): 5 Height (Inches): 0.00 Weight (Pounds): 245 General Appearance: WD/WN, no apparent distress, alert Neurologic: oriented x 3, responsive, depressed affect Remington Kimbrough M.D. July 02, 2017 12:46
--- NOTE | 2017-07-02 14:38 | Pulmonology Progress Note ---
Assessment/Plan Problems: (1) Diabetic foot ulcer (2) CKD (chronic kidney disease) (3) Diabetes mellitus (4) Diabetic nephropathy (5) Anemia in chronic kidney disease Assessment/Plan podiatry, surgery consult ID f/u awaiting cultures check cultures sliding scale diabetic diet insulin coverage./ will dc [facility] [place] [facility] when cultures become available Subjective ROS Limited/Unobtainable: No Constitutional: Reports: no symptoms HEENT: Repors: no symptoms Respiratory: Reports: no symptoms Allergies: Coded Allergies: PENICILLINS (Verified Allergy, Severe, SWOLLEN BODY, 04/23/17) Per Daughter, patient has tolerated Amoxicillin Tolerated Ceftriaxone 04/22/17 Uncoded Allergies: Blood Transfusion (Adverse Reaction, Unknown, 06/29/17) Pt states that she develops lower extremity wounds after blood transfusions Objective Last 24 Hour Vital Signs Date Time Temp Pulse Resp B/P (MAP) Pulse Ox O2 Delivery O2 Flow Rate FiO2 07/02/17 12:00 95.5 77 18 141/90 99 Room Air 95.5 07/02/17 08:36 85 148/87 07/02/17 08:00 98.1 81 16 157/94 99 Room Air 98.1 07/02/17 04:00 98.0 85 18 151/88 99 98.0 07/02/17 04:00 Room Air 07/02/17 00:18 98.0 86 16 150/90 96 98.0 07/02/17 00:00 Room Air 07/01/17 20:28 98.3 85 16 134/79 99 98.3 07/01/17 16:06 98.2 83 20 149/88 100 98.2 Intake and Output 07/01/17 07/02/17 19:00 07:00 Intake Total 2341.754 ml 1060.263 ml Balance 2341.754 ml 1060.263 ml Intake Oral 1580 ml 600 ml IV Total 761.754 ml 460.263 ml # Voids 5 3 # Bowel Movements 1 General Appearance: WD/WN HEENT: normocephalic, atraumatic Respiratory/Chest: chest wall non-tender, normal breath sounds Cardiovascular: normal peripheral pulses, regular rhythm Abdomen: normal bowel sounds, no organomegaly Genitourinary: normal external genitalia Skin: no rash Microbiology Date/Time Source Procedure Growth Status 06/30/17 05:35 Blood Blood Culture - Preliminary NO GROWTH AFTER 24 HOURS Resulted 06/30/17 05:30 Blood Blood Culture - Preliminary NO GROWTH AFTER 24 HOURS Resulted Laboratory Tests 07/02/17 04:05: White Blood Count 6.5, Red Blood Count 3.52L, Hemoglobin 9.4L, Hematocrit 30.2L , Mean Corpuscular Volume 86, Mean Corpuscular Hemoglobin 26.7L, Mean Corpuscular Hemoglobin Concent 31.0L, Red Cell Distribution Width 15.2H, Platelet Count 273, Mean Platelet Volume 7.7, Neutrophils (%) (Auto) 56.6, Lymphocytes (%) (Auto) 30.4, Monocytes (%) (Auto) 9.2, Eosinophils (%) (Auto) 2.7, Basophils (%) (Auto) 1.1, Activated Partial Thromboplast Time 82H Current Medications Medications (Trade) Dose Ordered Sig/Artemio Route PRN Reason Start Time Stop Time Status Last Admin Dose Admin Acetaminophen (Tylenol) 325 mg Q4H PRN ORAL Mild Pain / T>100.5 06/29/17 10:15 07/29/17 10:14 Acetaminophen/ Hydrocodone Bitart ([place] 5/325) 1 tab Q6H PRN ORAL Moderate Pain (Pain Scale 4-6) 06/29/17 10:15 07/06/17 10:14 Amlodipine Besylate (Norvasc) 5 mg DAILY ORAL 06/30/17 09:00 07/30/17 08:59 07/02/17 08:36 Aztreonam 0.5 gm/ Dextrose 55 ml @ 110 mls/hr Q8HR IVPB 06/29/17 22:00 07/06/17 21:59 07/02/17 05:59 Dextrose (Dextrose 50%) 25 ml STAT PRN IV Hypoglycemia 06/29/17 12:00 07/29/17 11:59 Dextrose (Dextrose 50%) 50 ml STAT PRN IV Hypoglycemia 06/29/17 12:00 07/29/17 11:59 Docusate Sodium (Colace) 100 mg DAILY ORAL 06/30/17 09:00 07/30/17 08:59 07/02/17 08:37 Ferrous Sulfate (Feosol) 325 mg DAILY ORAL 06/30/17 09:00 07/30/17 08:59 07/02/17 08:37 Folic Acid (Folate) 1 mg DAILY ORAL 06/30/17 09:00 07/30/17 08:59 07/02/17 08:36 Gadobutrol (Gadavist) 7.5 mmol NOW PRN IV Radiology Procedure 06/29/17 14:30 07/03/17 14:20 Heparin Sodium/ Dextrose 500 ml @ 31.842 mls/ hr adjust per protocol IV 06/29/17 13:00 07/29/17 12:59 07/02/17 03:17 Insulin Aspart (NovoLOG) BEFORE MEALS AND HS SUBQ 06/29/17 12:00 07/29/17 11:59 07/02/17 11:45 Insulin Aspart (NovoLOG) 6 units NOVOTIAC SUBQ 06/29/17 11:50 07/29/17 11:49 07/02/17 11:44 Insulin Detemir (Levemir) 15 units Q12HR SUBQ 06/29/17 21:00 07/29/17 20:59 07/02/17 08:42 Lansoprazole (Prevacid) 30 mg DAILY ORAL 06/30/17 09:00 07/30/17 08:59 07/02/17 08:36 Metronidazole (Flagyl) 500 mg Q8HR ORAL 06/30/17 22:00 07/07/17 21:59 07/02/17 12:47 Morphine Sulfate (Morphine Sulfate) 2 mg Q4H PRN IV Severe Pain (Pain Scale 7-10) 06/29/17 10:15 07/06/17 10:14 Vancomycin HCl (Vanco rx to dose) 1 ea DAILY PRN MISC Per rx protocol 06/29/17 21:00 07/29/17 20:59 Vancomycin HCl/ Dextrose 250 ml @ 166.667 mls/hr Q36H IVPB 07/01/17 11:00 07/06/17 10:59 07/01/17 11:11 Ruby Richmond MD July 02, 2017 14:38
[2017-07-02 16:00] VITALS: BP 148/87
[2017-07-02 20:00] VITALS: BP 115/67
[2017-07-02] MEDS ORDERED: NS 275ml ONE (20:19)
[2017-07-02] MEDS: Vancomycin 1250mg/D5W 250ml IVPB SCH (22:37)
[2017-07-03] VITALS (7 sets, daily range): BP systolic 129–148; BP diastolic 67–90
[2017-07-03] MEDS: Aztreonam Inj 0.5 GM in D5W 55 ML IVPB SCH ×3 (05:40→21:30)
[2017-07-03] MEDS: metroNIDAZOLE 500mg tab ORAL SCH ×3 (05:40→21:36)
[2017-07-03] MEDS: NovoLOG Insulin Flexpen SUBQ SCH ×7 (05:45→20:20)
--- NOTE | 2017-07-03 07:01 | Diagnostic Imaging Report ---
APPROVED REPORT CPT Code: 48497 Symptoms Comments: Left leg pain LEFT LEG: Common femoral artery waveform analysis is within normal limits at rest. Color flow duplex sonography reveals calcification throughout the superficial femoral artery. There is no evidence of significant stenosis or occlusion within these segments. The popliteal artery was patent. The tibioperoneal trunk was not well visualized. The distal posterior, anterior tibial and dorsalis pedis arteries are patent. Doppler tibial artery waveform analysis is monophasic, consistent with moderate ischemia at rest.
[2017-07-03 09:04] LABS: EOSINOPHILS % (AUTO) 1.3 % (0.0-3.0); HEMATOCRIT 31.5 % (37.0-47.0); HEMOGLOBIN 9.9 G/DL (12.0-16.0); LYMPHOCYTES % (AUTO) 16.8 % (20.0-45.0); MEAN CORPUSCULAR VOLUME 86 FL (80-99); MONOCYTES % (AUTO) 8.9 % (1.0-10.0); PLATELET COUNT 264 K/UL (150-450); RED BLOOD COUNT 3.66 M/UL (4.20-5.40); RED CELL DISTRIBUTION WIDTH 15.7 % (11.6-14.8); WHITE BLOOD COUNT 6.7 K/UL (4.8-10.8)
[2017-07-03 09:20] LABS: ALANINE AMINOTRANSFERASE 24 U/L (12-78); ALBUMIN 2.6 G/DL (3.4-5.0); ALBUMIN/GLOBULIN RATIO 0.6 (1.0-2.7); ALKALINE PHOSPHATASE 65 U/L (46-116); ANION GAP 11 mmol/L (5-15); ASPARTATE AMINO TRANSFERASE 28 U/L (15-37); BILIRUBIN,TOTAL 0.4 MG/DL (0.2-1.0); BLOOD UREA NITROGEN 38 mg/dL (7-18); CALCIUM 9.3 MG/DL (8.5-10.1); CARBON DIOXIDE 21 MMOL/L (21-32); CHLORIDE 106 MMOL/L (98-107); PHOSPHORUS 4.6 MG/DL (2.5-4.9); POTASSIUM 4.4 MMOL/L (3.5-5.1); SODIUM 138 MMOL/L (136-145)
[2017-07-03] MEDS: Docusate 100mg cap ORAL SCH ×3 (09:36→18:11)
[2017-07-03] MEDS: Levemir Flexpen SUBQ SCH ×2 (09:41→20:19)
--- NOTE | 2017-07-03 11:53 | Consultation ---
Consult Note Consult Note asked to evaluate for renal failure 51-year-old female presents ED for evaluation. [facility] because of arterial occlusion in the left leg. Patient had ultrasound today which showed arterial occlusion. Upon arrival patient denies any pain. Denies any fevers or chills. No other aggravating relieving factors. Denies any other associated symptoms PENICILLINS (Verified Allergy, Severe, SWOLLEN BODY, 04/23/17) Per Daughter, patient has tolerated Amoxicillin Tolerated Ceftriaxone 04/22/17 Past Medical History: HTN, GERD Hx Hypertension: Yes Hx Diabetes: Yes - Type 2 Hx Gastrointestinal Problems: Yes - GERD, Dysphagia Hx Neurological Problems: Yes - Muscle weakness, Cellulitis of left lower leg Assessment/Plan - Diabetic foot ulcer - CKD (chronic kidney disease) - Diabetic nephropathy - Anemia in chronic kidney disease Plan: UA- urine studies Anemia work up avoid nephrotoxics keep bp and BS in check monitor Vanco level per orders IBETH ROSAS July 03, 2017 11:53
[2017-07-03 12:43] LABS: FERRITIN 188 NG/ML (8-388)
[2017-07-03 14:32] LABS: % IRON SATURATION 38 % (15-50); IRON 54 ug/dL (50-175); TOTAL IRON BINDING CAPACITY 144 ug/dL (250-450)
--- NOTE | 2017-07-03 15:22 | Pulmonology Progress Note ---
Assessment/Plan Problems: (1) Diabetic foot ulcer (2) CKD (chronic kidney disease) (3) Diabetes mellitus (4) Diabetic nephropathy (5) Anemia in chronic kidney disease (6) Osteomyelitis Assessment/Plan podiatry, surgery consult ID f/u awaiting cultures check cultures sliding scale diabetic diet insulin coverage./ d/w ID, will dc to assisted when cultures become available Subjective ROS Limited/Unobtainable: No Constitutional: Reports: no symptoms HEENT: Repors: no symptoms Allergies: Coded Allergies: PENICILLINS (Verified Allergy, Severe, SWOLLEN BODY, 04/23/17) Per Daughter, patient has tolerated Amoxicillin Tolerated Ceftriaxone 04/22/17 Uncoded Allergies: Blood Transfusion (Adverse Reaction, Unknown, 06/29/17) Pt states that she develops lower extremity wounds after blood transfusions Objective Last 24 Hour Vital Signs Date Time Temp Pulse Resp B/P (MAP) Pulse Ox O2 Delivery O2 Flow Rate FiO2 07/03/17 12:00 97.6 82 20 148/90 97 97.6 07/03/17 09:36 86 135/80 07/03/17 08:00 97.8 86 20 135/80 100 97.8 07/03/17 05:51 97.9 85 18 129/67 96 97.9 07/03/17 05:51 96 Room Air 07/03/17 04:00 97.9 85 18 129/67 96 Room Air 97.9 07/03/17 00:00 98.1 86 19 141/72 97 Room Air 98.1 07/03/17 00:00 97 Room Air 07/02/17 20:00 97.9 85 18 115/67 100 Room Air 97.9 07/02/17 20:00 100 Room Air 07/02/17 16:00 98.2 82 17 148/87 97 Room Air 98.2 Intake and Output 07/02/17 07/03/17 19:00 07:00 Intake Total 127.368 ml 305.000 ml Output Total 400 ml Balance 127.368 ml -95.000 ml IV Total 127.368 ml 305.000 ml Output Urine Total 400 ml # Voids 3 3 # Bowel Movements 1 General Appearance: WD/WN HEENT: normocephalic, anicteric Respiratory/Chest: chest wall non-tender, normal breath sounds Breasts: no masses Cardiovascular: normal rate Abdomen: normal bowel sounds, soft, non tender Genitourinary: normal external genitalia Extremities: no clubbing Skin: no lesions Microbiology Date/Time Source Procedure Growth Status 07/01/17 12:00 Wound Gram Stain - Final Resulted 07/01/17 12:00 Wound Wound Culture - Preliminary NO GROWTH AFTER 24 HOURS Resulted Laboratory Tests 07/03/17 08:15: White Blood Count 6.7, Red Blood Count 3.66L, Hemoglobin 9.9L, Hematocrit 31.5L , Mean Corpuscular Volume 86, Mean Corpuscular Hemoglobin 26.9L, Mean Corpuscular Hemoglobin Concent 31.3L, Red Cell Distribution Width 15.7H, Platelet Count 264, Mean Platelet Volume 8.1, Neutrophils (%) (Auto) 72.0, Lymphocytes (%) (Auto) 16.8L, Monocytes (%) (Auto) 8.9, Eosinophils (%) (Auto) 1.3, Basophils (%) (Auto) 1.0, Activated Partial Thromboplast Time 32, Sodium Level 138, Potassium Level 4.4, Chloride Level 106, Carbon Dioxide Level 21, Anion Gap 11, Blood Urea Nitrogen 38H, Creatinine 2.0H, Estimat Glomerular Filtration Rate 31.5, Glucose Level 274H, Uric Acid 7.1, Calcium Level 9.3, Phosphorus Level 4.6, Magnesium Level 1.7L, Iron Level 54, Total Iron Binding Capacity 144L, Percent Iron Saturation 38, Unsaturated Iron Binding 90L, Ferritin 188, Total Bilirubin 0.4, Aspartate Amino Transf (AST/SGOT) 28, Alanine Aminotransferase (ALT/SGPT) 24, Alkaline Phosphatase 65, C-Reactive Protein, Quantitative 2.9H, Total Protein 7.2, Albumin 2.6L, Globulin 4.6, Albumin/Globulin Ratio 0.6L, Vitamin B12 Level 554, Folate 41.4 07/03/17 12:24: Random Vancomycin Level 20.8 Current Medications Medications (Trade) Dose Ordered Sig/Artemio Route PRN Reason Start Time Stop Time Status Last Admin Dose Admin Acetaminophen (Tylenol) 325 mg Q4H PRN ORAL Mild Pain / T>100.5 06/29/17 10:15 07/29/17 10:14 Acetaminophen/ Hydrocodone Bitart ([place] 5/325) 1 tab Q6H PRN ORAL Moderate Pain (Pain Scale 4-6) 06/29/17 10:15 07/06/17 10:14 Amlodipine Besylate (Norvasc) 5 mg DAILY ORAL 06/30/17 09:00 07/30/17 08:59 07/03/17 09:36 Aztreonam 0.5 gm/ Dextrose 55 ml @ 110 mls/hr Q8HR IVPB 06/29/17 22:00 07/06/17 21:59 07/03/17 14:50 Dextrose (Dextrose 50%) 25 ml STAT PRN IV Hypoglycemia 06/29/17 12:00 07/29/17 11:59 Dextrose (Dextrose 50%) 50 ml STAT PRN IV Hypoglycemia 06/29/17 12:00 07/29/17 11:59 Docusate Sodium (Colace) 100 mg TID ORAL 07/03/17 13:00 07/30/17 08:59 07/03/17 13:47 Insulin Aspart (NovoLOG) BEFORE MEALS AND HS SUBQ 06/29/17 12:00 07/29/17 11:59 07/03/17 12:08 Insulin Aspart (NovoLOG) 6 units NOVOTIAC SUBQ 06/29/17 11:50 07/29/17 11:49 07/03/17 12:58 Insulin Detemir (Levemir) 15 units Q12HR SUBQ 06/29/17 21:00 07/29/17 20:59 07/03/17 09:41 Lansoprazole (Prevacid) 30 mg DAILY ORAL 06/30/17 09:00 07/30/17 08:59 07/03/17 09:36 Metronidazole (Flagyl) 500 mg Q8HR ORAL 06/30/17 22:00 07/07/17 21:59 07/03/17 13:47 Morphine Sulfate (Morphine Sulfate) 2 mg Q4H PRN IV Severe Pain (Pain Scale 7-10) 06/29/17 10:15 07/06/17 10:14 Vancomycin HCl (Vanco rx to dose) 1 ea DAILY PRN MISC Per rx protocol 06/29/17 21:00 07/29/17 20:59 Vancomycin HCl/ Dextrose 250 ml @ 166.667 mls/hr Q48H IVPB 07/03/17 22:00 07/08/17 21:59 Ruby Richmond MD July 03, 2017 15:22
--- NOTE | 2017-07-03 15:38 | Infectious Diseases Prog Note ---
Assessment/Plan Assessment/Plan Assessment: Diabetic foot ulcers- worsening w/ New L foot ulceration c/w abscess, worsening and extensive OM despite previous appropriate medical tx (I+D, and prolonged IV abx tx) - -prior L lateral ankle wound healing -s/p I+D L medial ankle abscess 07/01 -OR findings: area of max fluctuance: abscess cavity with 25-50cc pus ; medial left distal leg/ankle: abscess cavity 10cm x 5cm and down to bone. no other tracking noted. -cx NTD -MRI L Foot 06/30: Abnormal fluid collection in the medial aspect of the ankle measuring approximately 4x 1.7 x 12 cm suspicious for abscess. Evidence of progressively worsening signal alteration presumably osteomyelitis involving bilateral malleolus regions, distal tibia plafond, talus and possibly the upper part of the calcaneus. -wound cx Neg -A. duplex done here: no significant stenosis or occlusion -a. duplex at [facility]: mild stenosis in left superficial femoral artery, left popliteal artery, monophasic -06/30 ESR 104, CRP 3.5 (decreased from prior) -Bcx NTD Afebrile, no leukocytosis Hx of Sepsis 2ry to L Leg cellulitis., large abscess (polymicrobial), infected ankle wound and OM c/w polymicrobial bacteremia and fungemia April 2017, s/p Rx -MRI L leg: Positive for osteomyelitis of the distal fibula, with evidence of bony destruction. More subtle marrow changes as described in the talus and calcaneus, also suspicious for osteomyelitis. Evidence of soft tissue cellulitis both laterally and medially. No drainable abscess. Abnormal peroneus longus tendon, may indicate inflammation or infection. Possible damage to the distal peroneus brevis tendon - s/p bedside I+D 04/23: large abscess in left distal lateral leg down to muscle and tendon. large area of fluctuance. 50-75cc of pus evacuated; wound cx +1 K.pna (grissom S), +4 E. fecalis (grissom S) -Xray R tibia/fibula/ankle: Evidence of multiple lateral soft tissue ulcers in the distal leg and ankle. Evidence of destructive change of the distal fibula. This is highly suspicious for acute osteomyelitis. No acute bony trauma -wound cx from purulent discharge 04/22 #1: +2 MRSA, <1+ E. aerogens (S Ceftriaxone), +4 GBS; #2 +2 MRSA (S tetracycline, bactrim, vanco), +4 E. aerogens (S Ceftriaxone), E fecalis (grissom S) -ESR 116, CRP 27.7> 04/26 >70; 04/30 14.7> 12.8 05/03 - -Bcx 04/21 2/4 + GBS, 2/4 CoNS, 02/13MRSA, Bcx 04/22 14 C. glabrata; 04/25 Bcx NTD; Bcx 04/27 2/4 S. epi (from same bottle) ; 04/28 BCx Neg -Echo:Limited (poor acoustic views)- no vegetations, no significant valve abnormalities -CT chest/abd/p wo: no abscess Dm2 HTN hx of R transmetatarsal amputation GERD CKD st 4 MDD anxiety reported PNC allergy- however tolerates Amoxicillin per daughter and tolerated Ceftriaxone 04/2017 VRE colonized Plan: -Continue empiric IV vanco and Aztreonam #5 and PO Flagyl #4 -if no amputation, then will treat with total of 42 days of IV abx; discharge regimen IV Vancomycin 1.25g IV q48hr and IV Ertapenem 1g daily. Will need picc line -06/01 SP Ceftriaxone and Daptomycin #42 -05/08 SP Micafungin #14 -05/06 PO Flagyl #14 -04/30 SP IV Vancomycin #7 -04/23 SP IV Vancomycin #2 and Clindamycin #2 -04/22 SP IV Aztreonam #2 -Gen Sx following- will likely need amputation given failure to maximum medical treatment. patient refusing at this point. -Monitor CBC/BMP, temperatures -wound care Thank you for this consultation. Will continue to follow along with you. Discussed with RN, Dr Richmond and Dr Ramirez. Subjective Allergies: Coded Allergies: PENICILLINS (Verified Allergy, Severe, SWOLLEN BODY, 04/23/17) Per Daughter, patient has tolerated Amoxicillin Tolerated Ceftriaxone 04/22/17 Uncoded Allergies: Blood Transfusion (Adverse Reaction, Unknown, 06/29/17) Pt states that she develops lower extremity wounds after blood transfusions Subjective afebrile no leukocytosis I+D of left medial ankle yesterday initial wound cx NTD Objective Vital Signs Last 24 Hour Vital Signs Date Time Temp Pulse Resp B/P (MAP) Pulse Ox O2 Delivery O2 Flow Rate FiO2 07/03/17 12:00 97.6 82 20 148/90 97 97.6 07/03/17 09:36 86 135/80 07/03/17 08:00 97.8 86 20 135/80 100 97.8 07/03/17 05:51 97.9 85 18 129/67 96 97.9 07/03/17 05:51 96 Room Air 07/03/17 04:00 97.9 85 18 129/67 96 Room Air 97.9 07/03/17 00:00 98.1 86 19 141/72 97 Room Air 98.1 07/03/17 00:00 97 Room Air 07/02/17 20:00 97.9 85 18 115/67 100 Room Air 97.9 07/02/17 20:00 100 Room Air 07/02/17 16:00 98.2 82 17 148/87 97 Room Air 98.2 Height (Feet): 5 Height (Inches): 0.00 Weight (Pounds): 245 Objective General Appearance: WD/WN, no apparent distress, alert, obese Lines, tubes and drains: peripheral HEENT: normocephalic, atraumatic, anicteric, mucous membranes moist, PERRL Neck: non-tender, normal alignment, supple Respiratory/Chest: chest wall non-tender, lungs clear, no respiratory distress , no accessory muscle use Cardiovascular/Chest: normal rate, regular rhythm, no JVD Abdomen: normal bowel sounds, non tender - obese, soft Extremities: no calf tenderness, normal capillary refill, other - Left foot: dressings in place right transmetatarsal amputation Neurologic: abnormal gait, alert, responsive, normal mood/affect Musculoskeletal: normal muscle bulk Microbiology Date/Time Source Procedure Growth Status 07/01/17 12:00 Wound Gram Stain - Final Resulted 07/01/17 12:00 Wound Wound Culture - Preliminary NO GROWTH AFTER 24 HOURS Resulted Laboratory Tests Test 07/03/17 08:15 07/03/17 12:24 White Blood Count 6.7 K/UL (4.8-10.8) Red Blood Count 3.66 M/UL (4.20-5.40) L Hemoglobin 9.9 G/DL (12.0-16.0) L Hematocrit 31.5 % (37.0-47.0) L Mean Corpuscular Volume 86 FL (80-99) Mean Corpuscular Hemoglobin 26.9 PG (27.0-31.0) L Mean Corpuscular Hemoglobin Concent 31.3 G/DL (32.0-36.0) L Red Cell Distribution Width 15.7 % (11.6-14.8) H Platelet Count 264 K/UL (150-450) Mean Platelet Volume 8.1 FL (6.5-10.1) Neutrophils (%) (Auto) 72.0 % (45.0-75.0) Lymphocytes (%) (Auto) 16.8 % (20.0-45.0) L Monocytes (%) (Auto) 8.9 % (1.0-10.0) Eosinophils (%) (Auto) 1.3 % (0.0-3.0) Basophils (%) (Auto) 1.0 % (0.0-2.0) Activated Partial Thromboplast Time 32 SEC (23-33) Sodium Level 138 MMOL/L (136-145) Potassium Level 4.4 MMOL/L (3.5-5.1) Chloride Level 106 MMOL/L (98-107) Carbon Dioxide Level 21 MMOL/L (21-32) Anion Gap 11 mmol/L (5-15) Blood Urea Nitrogen 38 mg/dL (7-18) H Creatinine 2.0 MG/DL (0.55-1.30) H Estimat Glomerular Filtration Rate 31.5 mL/min (>60) Glucose Level 274 MG/DL (74-106) H Uric Acid 7.1 MG/DL (2.6-7.2) Calcium Level 9.3 MG/DL (8.5-10.1) Phosphorus Level 4.6 MG/DL (2.5-4.9) Magnesium Level 1.7 MG/DL (1.8-2.4) L Iron Level 54 ug/dL (50-175) Total Iron Binding Capacity 144 ug/dL (250-450) L Percent Iron Saturation 38 % (15-50) Unsaturated Iron Binding 90 ug/dL (112-346) L Ferritin 188 NG/ML (8-388) Total Bilirubin 0.4 MG/DL (0.2-1.0) Aspartate Amino Transf (AST/SGOT) 28 U/L (15-37) Alanine Aminotransferase (ALT/SGPT) 24 U/L (12-78) Alkaline Phosphatase 65 U/L (46-116) C-Reactive Protein, Quantitative 2.9 mg/dL (0.00-0.90) H Total Protein 7.2 G/DL (6.4-8.2) Albumin 2.6 G/DL (3.4-5.0) L Globulin 4.6 g/dL Albumin/Globulin Ratio 0.6 (1.0-2.7) L Vitamin B12 Level 554 PG/ML (193-986) Folate 41.4 NG/ML (8.6-58.9) Random Vancomycin Level 20.8 ug/mL Current Medications Medications (Trade) Dose Ordered Sig/Artemio Route PRN Reason Start Time Stop Time Status Last Admin Dose Admin Acetaminophen (Tylenol) 325 mg Q4H PRN ORAL Mild Pain / T>100.5 06/29/17 10:15 07/29/17 10:14 Acetaminophen/ Hydrocodone Bitart ([place] 5/325) 1 tab Q6H PRN ORAL Moderate Pain (Pain Scale 4-6) 06/29/17 10:15 07/06/17 10:14 Amlodipine Besylate (Norvasc) 5 mg DAILY ORAL 06/30/17 09:00 07/30/17 08:59 07/03/17 09:36 Aztreonam 0.5 gm/ Dextrose 55 ml @ 110 mls/hr Q8HR IVPB 06/29/17 22:00 07/06/17 21:59 07/03/17 14:50 Dextrose (Dextrose 50%) 25 ml STAT PRN IV Hypoglycemia 06/29/17 12:00 07/29/17 11:59 Dextrose (Dextrose 50%) 50 ml STAT PRN IV Hypoglycemia 06/29/17 12:00 07/29/17 11:59 Docusate Sodium (Colace) 100 mg TID ORAL 07/03/17 13:00 07/30/17 08:59 07/03/17 13:47 Insulin Aspart (NovoLOG) BEFORE MEALS AND HS SUBQ 06/29/17 12:00 07/29/17 11:59 07/03/17 12:08 Insulin Aspart (NovoLOG) 6 units NOVOTIAC SUBQ 06/29/17 11:50 07/29/17 11:49 07/03/17 12:58 Insulin Detemir (Levemir) 15 units Q12HR SUBQ 06/29/17 21:00 07/29/17 20:59 07/03/17 09:41 Lansoprazole (Prevacid) 30 mg DAILY ORAL 06/30/17 09:00 07/30/17 08:59 07/03/17 09:36 Metronidazole (Flagyl) 500 mg Q8HR ORAL 06/30/17 22:00 07/07/17 21:59 07/03/17 13:47 Morphine Sulfate (Morphine Sulfate) 2 mg Q4H PRN IV Severe Pain (Pain Scale 7-10) 06/29/17 10:15 07/06/17 10:14 Vancomycin HCl (Vanco rx to dose) 1 ea DAILY PRN MISC Per rx protocol 06/29/17 21:00 07/29/17 20:59 Vancomycin HCl/ Dextrose 250 ml @ 166.667 mls/hr Q48H IVPB 07/03/17 22:00 07/08/17 21:59 Faye Foy M.D. July 03, 2017 15:38
[2017-07-03 16:06] LABS: APPEARANCE,URINE CLEAR; BILIRUBIN, URINE NEGATIVE (NEGATIVE); COLOR,URINE PALE YELLOW; GLUCOSE, URINE (UA) 2+ (NEGATIVE); KETONES,URINE NEGATIVE (NEGATIVE); LEUKOCYTE ESTERASE ,URINE 1+ (NEGATIVE); NITRITE,URINE NEGATIVE (NEGATIVE); PH,URINE 6 (4.5-8.0); PROTEIN,URINE 3+ (NEGATIVE); UROBILINOGEN,URINE NORMAL MG/DL (0.0-1.0)
--- NOTE | 2017-07-03 19:29 | General Surgery Progress Note ---
General Surgery-Progress Note Subjective Procedure Performed incision and drainage of left ankle abscess Additional Comments no acute events. Objective Last 24 Hour Vital Signs Date Time Temp Pulse Resp B/P (MAP) Pulse Ox O2 Delivery O2 Flow Rate FiO2 07/03/17 16:00 98.0 82 19 135/86 98 98.0 07/03/17 12:00 97.6 82 20 148/90 97 97.6 07/03/17 09:36 86 135/80 07/03/17 08:00 97.8 86 20 135/80 100 97.8 07/03/17 05:51 97.9 85 18 129/67 96 97.9 07/03/17 05:51 96 Room Air 07/03/17 04:00 97.9 85 18 129/67 96 Room Air 97.9 07/03/17 00:00 98.1 86 19 141/72 97 Room Air 98.1 07/03/17 00:00 97 Room Air 07/02/17 20:00 97.9 85 18 115/67 100 Room Air 97.9 07/02/17 20:00 100 Room Air I&O Intake and Output 07/02/17 07/03/17 19:00 07:00 Intake Total 127.368 ml 305.000 ml Output Total 400 ml Balance 127.368 ml -95.000 ml IV Total 127.368 ml 305.000 ml Output Urine Total 400 ml # Voids 3 3 # Bowel Movements 1 Dressing: dry Wound: clean, other - see photos; no longer with purulent drainage Drains: none Cardiovascular: RSR Respiratory: clear Abdomen: soft, flat, non-tender, present bowel sounds Extremities: edema, tenderness, no cyanosis Laboratory Tests Test 07/03/17 08:15 07/03/17 12:24 07/03/17 14:50 White Blood Count 6.7 K/UL (4.8-10.8) Red Blood Count 3.66 M/UL (4.20-5.40) L Hemoglobin 9.9 G/DL (12.0-16.0) L Hematocrit 31.5 % (37.0-47.0) L Mean Corpuscular Volume 86 FL (80-99) Mean Corpuscular Hemoglobin 26.9 PG (27.0-31.0) L Mean Corpuscular Hemoglobin Concent 31.3 G/DL (32.0-36.0) L Red Cell Distribution Width 15.7 % (11.6-14.8) H Platelet Count 264 K/UL (150-450) Mean Platelet Volume 8.1 FL (6.5-10.1) Neutrophils (%) (Auto) 72.0 % (45.0-75.0) Lymphocytes (%) (Auto) 16.8 % (20.0-45.0) L Monocytes (%) (Auto) 8.9 % (1.0-10.0) Eosinophils (%) (Auto) 1.3 % (0.0-3.0) Basophils (%) (Auto) 1.0 % (0.0-2.0) Activated Partial Thromboplast Time 32 SEC (23-33) Sodium Level 138 MMOL/L (136-145) Potassium Level 4.4 MMOL/L (3.5-5.1) Chloride Level 106 MMOL/L (98-107) Carbon Dioxide Level 21 MMOL/L (21-32) Anion Gap 11 mmol/L (5-15) Blood Urea Nitrogen 38 mg/dL (7-18) H Creatinine 2.0 MG/DL (0.55-1.30) H Estimat Glomerular Filtration Rate 31.5 mL/min (>60) Glucose Level 274 MG/DL (74-106) H Uric Acid 7.1 MG/DL (2.6-7.2) Calcium Level 9.3 MG/DL (8.5-10.1) Phosphorus Level 4.6 MG/DL (2.5-4.9) Magnesium Level 1.7 MG/DL (1.8-2.4) L Iron Level 54 ug/dL (50-175) Total Iron Binding Capacity 144 ug/dL (250-450) L Percent Iron Saturation 38 % (15-50) Unsaturated Iron Binding 90 ug/dL (112-346) L Ferritin 188 NG/ML (8-388) Total Bilirubin 0.4 MG/DL (0.2-1.0) Aspartate Amino Transf (AST/SGOT) 28 U/L (15-37) Alanine Aminotransferase (ALT/SGPT) 24 U/L (12-78) Alkaline Phosphatase 65 U/L (46-116) C-Reactive Protein, Quantitative 2.9 mg/dL (0.00-0.90) H Total Protein 7.2 G/DL (6.4-8.2) Albumin 2.6 G/DL (3.4-5.0) L Globulin 4.6 g/dL Albumin/Globulin Ratio 0.6 (1.0-2.7) L Vitamin B12 Level 554 PG/ML (193-986) Folate 41.4 NG/ML (8.6-58.9) Random Vancomycin Level 20.8 ug/mL Urine Color Pale yellow Urine Appearance Clear Urine pH 6 (4.5-8.0) Urine Specific [place] 1.015 (1.005-1.035) Urine Protein 3+ (NEGATIVE) H Urine Glucose (UA) 2+ (NEGATIVE) H Urine Ketones Negative (NEGATIVE) Urine Occult Blood 1+ (NEGATIVE) H Urine Nitrite Negative (NEGATIVE) Urine Bilirubin Negative (NEGATIVE) Urine Urobilinogen Normal MG/DL (0.0-1.0) Urine Leukocyte Esterase 1+ (NEGATIVE) H Urine RBC 0-2 /HPF (0 - 2) Urine WBC 2-4 /HPF (0 - 2) Urine Squamous Epithelial Cells Few /LPF (NONE/OCC) Urine Bacteria Few /HPF (NONE) Urine Yeast Few /HPF (NONE) H Urine Random Sodium 109 mmol/L (20-110) Plan Problems: (1) Diabetic foot ulcer Assessment & Plan: diabetic foot with worsening overall condition. now new ulcers and fluid collections/edema. slowly healing. less motor function. unfortunately slowly worsening. MRI with abnormal medial fluid collection likely abscess and worsening osteo s/p I&D of medial ankle abscess. recovering. -packing and dressings TID -cont Abx for now. will continue medical therapy and wound care for now. -okay to d/c from surgical standpoint. cont wound care as outpatient. will cont with medical management for now as per patients wishes. -will likely need amputation. does not seem salvageable after weeks of maximal medical therapy Sandro Ramirez July 03, 2017 19:29
[2017-07-03] MEDS ORDERED: Vancomycin 1250mg/D5W 250ml IVPB SCH (22:00)
[2017-07-04 00:23] VITALS: BP 146/80
[2017-07-04 04:00] VITALS: BP 132/79
[2017-07-04] MEDS: Aztreonam Inj 0.5 GM in D5W 55 ML IVPB SCH ×2 (05:00→14:04)
[2017-07-04] MEDS: metroNIDAZOLE 500mg tab ORAL SCH ×2 (05:01→14:03)
[2017-07-04] MEDS: NovoLOG Insulin Flexpen SUBQ SCH ×6 (06:00→16:50)
[2017-07-04 08:00] VITALS: BP 127/67
[2017-07-04] MEDS ORDERED: Heparin 2000 units/Ns 1000ml INJ PRN (08:15)
[2017-07-04] MEDS ORDERED: Lidocaine 1% Plain 30 ml INJ PRN (08:15)
[2017-07-04] MEDS: Docusate 100mg cap ORAL SCH ×2 (09:31→12:16)
[2017-07-04] MEDS: Levemir Flexpen SUBQ SCH (09:33)
--- NOTE | 2017-07-04 11:13 | Diagnostic Imaging Report ---
Indications: Needs long-term IV access Technique: Ultrasound confirms patent compressible left basilic vein. Total sterile technique, including sterile probe cover and sterile gel, hat, mask,, sterile gown, large sterile drape, and preparation with 2% chlorhexidine utilized. Local anesthesia with 1% lidocaine. Under real-time ultrasound guidance, puncture basilic vein using 21-gauge needle, documented and archived, passage 0.018 guidewire under direct fluoroscopy, which was used to determine appropriate catheter length, exchange for 5 [place] peel-away sheath. 5 [place] Bard dual-lumen power PICC cut to 47 cm. It was inserted through the peel-away sheath. Peel-away sheath and guidewire removed. Catheter fixed to the skin. Both catheter ports aspirated and flushed. Patient tolerated procedure well, without immediate complication. Digital radiograph documents satisfactory catheter tip position, at the cavoatrial junction. Total fluoroscopy time 0.4 minutes. Total dose area product 21 dGycm2 Impression: Successful placement of left arm PICC under sonographic and fluoroscopic guidance, as described above.
--- NOTE | 2017-07-04 11:21 | Infectious Diseases Prog Note ---
Assessment/Plan Assessment/Plan Assessment: Diabetic foot ulcers- worsening w/ New L foot ulceration c/w abscess, worsening and extensive OM despite previous appropriate medical tx (I+D, and prolonged IV abx tx) - -prior L lateral ankle wound healing -s/p I+D L medial ankle abscess 07/01 -OR findings: area of max fluctuance: abscess cavity with 25-50cc pus ; medial left distal leg/ankle: abscess cavity 10cm x 5cm and down to bone. no other tracking noted. -cx NTD -MRI L Foot 06/30: Abnormal fluid collection in the medial aspect of the ankle measuring approximately 4x 1.7 x 12 cm suspicious for abscess. Evidence of progressively worsening signal alteration presumably osteomyelitis involving bilateral malleolus regions, distal tibia plafond, talus and possibly the upper part of the calcaneus. -wound cx Neg -A. duplex done here: no significant stenosis or occlusion -a. duplex at [facility]: mild stenosis in left superficial femoral artery, left popliteal artery, monophasic -06/30 ESR 104, CRP 3.5 (decreased from prior) -Bcx NTD Afebrile, no leukocytosis Hx of Sepsis 2ry to L Leg cellulitis., large abscess (polymicrobial), infected ankle wound and OM c/w polymicrobial bacteremia and fungemia April 2017, s/p Rx -MRI L leg: Positive for osteomyelitis of the distal fibula, with evidence of bony destruction. More subtle marrow changes as described in the talus and calcaneus, also suspicious for osteomyelitis. Evidence of soft tissue cellulitis both laterally and medially. No drainable abscess. Abnormal peroneus longus tendon, may indicate inflammation or infection. Possible damage to the distal peroneus brevis tendon - s/p bedside I+D 04/23: large abscess in left distal lateral leg down to muscle and tendon. large area of fluctuance. 50-75cc of pus evacuated; wound cx +1 K.pna (grissom S), +4 E. fecalis (grissom S) -Xray R tibia/fibula/ankle: Evidence of multiple lateral soft tissue ulcers in the distal leg and ankle. Evidence of destructive change of the distal fibula. This is highly suspicious for acute osteomyelitis. No acute bony trauma -wound cx from purulent discharge 04/22 #1: +2 MRSA, <1+ E. aerogens (S Ceftriaxone), +4 GBS; #2 +2 MRSA (S tetracycline, bactrim, vanco), +4 E. aerogens (S Ceftriaxone), E fecalis (grissom S) -ESR 116, CRP 27.7> 04/26 >70; 04/30 14.7> 12.8 05/03 - -Bcx 04/21 2/4 + GBS, 2/4 CoNS, 02/13MRSA, Bcx 04/22 14 C. glabrata; 04/25 Bcx NTD; Bcx 04/27 2/4 S. epi (from same bottle) ; 04/28 BCx Neg -Echo:Limited (poor acoustic views)- no vegetations, no significant valve abnormalities -CT chest/abd/p wo: no abscess Dm2 HTN hx of R transmetatarsal amputation GERD CKD st 4 MDD anxiety reported PNC allergy- however tolerates Amoxicillin per daughter and tolerated Ceftriaxone 04/2017 VRE colonized Plan: -Continue empiric IV vanco and Aztreonam #6 and PO Flagyl #5; upon discharge will do IV Vancomycin 1.25g IV q48hr and IV Ertapenem 1g daily for a total fo 42 days. -weekly CBC, CMP, vanco through -06/01 SP Ceftriaxone and Daptomycin #42 -05/08 SP Micafungin #14 -05/06 PO Flagyl #14 -04/30 SP IV Vancomycin #7 -04/23 SP IV Vancomycin #2 and Clindamycin #2 -04/22 SP IV Aztreonam #2 -Gen Sx following- will likely need amputation given failure to maximum medical treatment. patient refusing at this point. -Monitor CBC/BMP, temperatures -wound care -PICC line today Thank you for this consultation. Will continue to follow along with you. Discussed with RN, Dr Richmond and Dr Ramirez. Subjective Allergies: Coded Allergies: PENICILLINS (Verified Allergy, Severe, SWOLLEN BODY, 04/23/17) Per Daughter, patient has tolerated Amoxicillin Tolerated Ceftriaxone 04/22/17 Uncoded Allergies: Blood Transfusion (Adverse Reaction, Unknown, 06/29/17) Pt states that she develops lower extremity wounds after blood transfusions Subjective afebrile no leukocytosis debridement cx NTD discharge planning; refused amputation for picc today Objective Vital Signs Last 24 Hour Vital Signs Date Time Temp Pulse Resp B/P (MAP) Pulse Ox O2 Delivery O2 Flow Rate FiO2 07/04/17 09:31 84 127/67 07/04/17 08:00 98.0 84 19 127/67 97 Room Air 98.0 07/04/17 04:00 98.1 91 19 132/79 99 Room Air 98.1 07/04/17 00:23 99.0 84 18 146/80 99 Room Air 99.0 07/03/17 20:00 98.1 88 18 133/84 99 Room Air 98.1 07/03/17 16:00 98.0 82 19 135/86 98 98.0 07/03/17 12:00 97.6 82 20 148/90 97 97.6 Height (Feet): 5 Height (Inches): 0.00 Weight (Pounds): 245 Objective General Appearance: WD/WN, no apparent distress, alert, obese Lines, tubes and drains: peripheral HEENT: normocephalic, atraumatic, anicteric, mucous membranes moist, PERRL Neck: non-tender, normal alignment, supple Respiratory/Chest: chest wall non-tender, lungs clear, no respiratory distress , no accessory muscle use Cardiovascular/Chest: normal rate, regular rhythm, no JVD Abdomen: normal bowel sounds, non tender - obese, soft Extremities: no calf tenderness, normal capillary refill, other - Left foot: dressings in place right transmetatarsal amputation Neurologic: abnormal gait, alert, responsive, normal mood/affect Musculoskeletal: normal muscle bulk Microbiology Date/Time Source Procedure Growth Status 07/01/17 12:00 Wound Gram Stain - Final Resulted 07/01/17 12:00 Wound Wound Culture - Preliminary NO GROWTH AFTER 48 HOURS Resulted 07/03/17 14:50 Urine,Clean Catch Urine Culture - Preliminary NO GROWTH Resulted Laboratory Tests Test 07/03/17 12:24 07/03/17 14:50 07/04/17 05:30 07/04/17 09:45 Random Vancomycin Level 20.8 ug/mL Urine Color Pale yellow Urine Appearance Clear Urine pH 6 (4.5-8.0) Urine Specific [place] 1.015 (1.005-1.035) Urine Protein 3+ (NEGATIVE) H Urine Glucose (UA) 2+ (NEGATIVE) H Urine Ketones Negative (NEGATIVE) Urine Occult Blood 1+ (NEGATIVE) H Urine Nitrite Negative (NEGATIVE) Urine Bilirubin Negative (NEGATIVE) Urine Urobilinogen Normal MG/DL (0.0-1.0) Urine Leukocyte Esterase 1+ (NEGATIVE) H Urine RBC 0-2 /HPF (0 - 2) Urine WBC 2-4 /HPF (0 - 2) Urine Squamous Epithelial Cells Few /LPF (NONE/OCC) Urine Bacteria Few /HPF (NONE) Urine Yeast Few /HPF (NONE) H Urine Random Sodium 109 mmol/L (20-110) Urine Eosinophils None seen Vancomycin Level Trough 24.3 ug/mL (5.0-12.0) H Current Medications Medications (Trade) Dose Ordered Sig/Artemio Route PRN Reason Start Time Stop Time Status Last Admin Dose Admin Acetaminophen (Tylenol) 325 mg Q4H PRN ORAL Mild Pain / T>100.5 06/29/17 10:15 07/29/17 10:14 Acetaminophen/ Hydrocodone Bitart ([place] 5/325) 1 tab Q6H PRN ORAL Moderate Pain (Pain Scale 4-6) 06/29/17 10:15 07/06/17 10:14 Amlodipine Besylate (Norvasc) 5 mg DAILY ORAL 06/30/17 09:00 07/30/17 08:59 07/04/17 09:31 Aztreonam 0.5 gm/ Dextrose 55 ml @ 110 mls/hr Q8HR IVPB 06/29/17 22:00 07/06/17 21:59 07/04/17 05:00 Chlorhexidine Gluconate (Nasreen-Hex 2%) 1 applic DAILY@2000 TOPIC 07/04/17 20:00 08/03/17 19:59 Dextrose (Dextrose 50%) 25 ml STAT PRN IV Hypoglycemia 06/29/17 12:00 07/29/17 11:59 Dextrose (Dextrose 50%) 50 ml STAT PRN IV Hypoglycemia 06/29/17 12:00 07/29/17 11:59 Docusate Sodium (Colace) 100 mg TID ORAL 07/03/17 13:00 07/30/17 08:59 07/04/17 09:31 Heparin Sodium/ Sodium Chloride (Heparin 2000 units/Ns 1000ml premix) 2,000 unit ONCE PRN INJ PICC PLACEMENT 07/04/17 08:15 07/04/17 23:59 Insulin Aspart (NovoLOG) BEFORE MEALS AND HS SUBQ 06/29/17 12:00 07/29/17 11:59 07/04/17 06:00 Insulin Aspart (NovoLOG) 6 units NOVOTIAC SUBQ 06/29/17 11:50 07/29/17 11:49 07/04/17 06:01 Insulin Detemir (Levemir) 15 units Q12HR SUBQ 06/29/17 21:00 07/29/17 20:59 07/04/17 09:33 Lansoprazole (Prevacid) 30 mg DAILY ORAL 06/30/17 09:00 07/30/17 08:59 07/04/17 09:31 Lidocaine HCl (Xylocaine 1% 30ml) 30 ml ONCE PRN INJ PICC PLACEMENT 07/04/17 08:15 07/04/17 23:59 Metronidazole (Flagyl) 500 mg Q8HR ORAL 06/30/17 22:00 07/07/17 21:59 07/04/17 05:01 Morphine Sulfate (Morphine Sulfate) 2 mg Q4H PRN IV Severe Pain (Pain Scale 7-10) 06/29/17 10:15 07/06/17 10:14 Vancomycin HCl (Vanco rx to dose) 1 ea DAILY PRN MISC Per rx protocol 06/29/17 21:00 07/29/17 20:59 Vancomycin HCl/ Dextrose 250 ml @ 166.667 mls/hr Q48H IVPB 07/03/17 22:00 07/08/17 21:59 07/03/17 22:02 Faye Foy M.D. July 04, 2017 11:21
--- NOTE | 2017-07-04 11:36 | Nephrology Progress Note ---
Assessment/Plan Problem List: (1) CKD (chronic kidney disease) (2) Diabetic foot ulcer (3) Anemia in chronic kidney disease (4) Diabetic nephropathy (5) Abscess of left leg Assessment - Diabetic foot ulcer - CKD (chronic kidney disease) - Diabetic nephropathy - Anemia in chronic kidney disease Plan hold vanco until level reasonable UA- 3+ protein urine studies Anemia work up avoid nephrotoxics keep bp and BS in check monitor Vanco level per orders Subjective ROS Limited/Unobtainable: No Constitutional: Reports: malaise Objective Objective Last 24 Hour Vital Signs Date Time Temp Pulse Resp B/P (MAP) Pulse Ox O2 Delivery O2 Flow Rate FiO2 07/04/17 09:31 84 127/67 07/04/17 08:00 98.0 84 19 127/67 97 Room Air 98.0 07/04/17 04:00 98.1 91 19 132/79 99 Room Air 98.1 07/04/17 00:23 99.0 84 18 146/80 99 Room Air 99.0 07/03/17 20:00 98.1 88 18 133/84 99 Room Air 98.1 07/03/17 16:00 98.0 82 19 135/86 98 98.0 07/03/17 12:00 97.6 82 20 148/90 97 97.6 Intake and Output 07/03/17 07/04/17 19:00 07:00 Intake Total 500 ml 500 ml Balance 500 ml 500 ml Intake Oral 500 ml 500 ml # Voids 1 2 # Bowel Movements 1 Laboratory Tests 07/03/17 12:24: Random Vancomycin Level 20.8 07/03/17 14:50: Urine Color Pale yellow, Urine Appearance Clear, Urine pH 6, Urine Specific Crawford 1.015, Urine Protein 3+H, Urine Glucose (UA) 2+H, Urine Ketones Negative , Urine Occult Blood 1+H, Urine Nitrite Negative, Urine Bilirubin Negative, Urine Urobilinogen Normal, Urine Leukocyte Esterase 1+H, Urine RBC 0-2, Urine WBC 2-4, Urine Squamous Epithelial Cells Few, Urine Bacteria Few, Urine Yeast FewH, Urine Random Sodium 109 07/04/17 05:30: Urine Eosinophils None seen 07/04/17 09:45: Vancomycin Level Trough 24.3H Height (Feet): 5 Height (Inches): 0.00 Weight (Pounds): 245 General Appearance: no apparent distress Respiratory/Chest: lungs clear Abdomen: soft Extremities: other - no change IBETH ROSAS July 04, 2017 11:36
[2017-07-04 11:59] VITALS: BP 154/96
[2017-07-04] MEDS ORDERED: INVANZ1 G1 IM (14:41)
[2017-07-04] MEDS ORDERED: VANCOMYCIN IVINF (14:41)
--- NOTE | 2017-07-04 15:01 | General Progress Note ---
Assessment/Plan Assessment/Plan Anxiety d/o dm mdd ativan prn rec ssirs Subjective Neurologic/Psychiatric: Reports: anxiety, depressed Allergies: Coded Allergies: PENICILLINS (Verified Allergy, Severe, SWOLLEN BODY, 04/23/17) Per Daughter, patient has tolerated Amoxicillin Tolerated Ceftriaxone 04/22/17 Uncoded Allergies: Blood Transfusion (Adverse Reaction, Unknown, 06/29/17) Pt states that she develops lower extremity wounds after blood transfusions Subjective "Im sad but not depressed. anxious Objective Last 24 Hour Vital Signs Date Time Temp Pulse Resp B/P (MAP) Pulse Ox O2 Delivery O2 Flow Rate FiO2 07/04/17 14:20 97.6 07/04/17 11:59 97.6 81 19 154/96 98 97.6 07/04/17 09:31 84 127/67 07/04/17 08:00 98.0 84 19 127/67 97 Room Air 98.0 07/04/17 04:00 98.1 91 19 132/79 99 Room Air 98.1 07/04/17 00:23 99.0 84 18 146/80 99 Room Air 99.0 07/03/17 20:00 98.1 88 18 133/84 99 Room Air 98.1 07/03/17 16:00 98.0 82 19 135/86 98 98.0 Intake and Output 07/03/17 07/04/17 19:00 07:00 Intake Total 500 ml 500 ml Balance 500 ml 500 ml Intake Oral 500 ml 500 ml # Voids 1 2 # Bowel Movements 1 Laboratory Tests 07/04/17 05:30: Urine Eosinophils None seen 07/04/17 09:45: C-Reactive Protein, Quantitative 2.7H, Vancomycin Level Trough 24.3H, Random Vancomycin Level 26.4 Height (Feet): 5 Height (Inches): 0.00 Weight (Pounds): 245 General Appearance: no apparent distress, alert Neurologic: alert, oriented x 3, responsive, depressed affect Remington Kimbrough M.D. July 04, 2017 15:01
--- NOTE | 2017-07-04 15:01 | Psych Consult Progress Note ---
Psych Consult Progress Note Consult 07/03/17 Anxiety d/o dm mdd ativan prn rec ssirs Vital Signs Last 24 Hour Vital Signs Date Time Temp Pulse Resp B/P (MAP) Pulse Ox O2 Delivery O2 Flow Rate FiO2 07/04/17 14:20 97.6 07/04/17 11:59 97.6 81 19 154/96 98 97.6 07/04/17 09:31 84 127/67 07/04/17 08:00 98.0 84 19 127/67 97 Room Air 98.0 07/04/17 04:00 98.1 91 19 132/79 99 Room Air 98.1 07/04/17 00:23 99.0 84 18 146/80 99 Room Air 99.0 07/03/17 20:00 98.1 88 18 133/84 99 Room Air 98.1 07/03/17 16:00 98.0 82 19 135/86 98 98.0 Labs Laboratory Tests Test 07/04/17 05:30 07/04/17 09:45 Urine Eosinophils None seen C-Reactive Protein, Quantitative 2.7 mg/dL (0.00-0.90) H Vancomycin Level Trough 24.3 ug/mL (5.0-12.0) H Random Vancomycin Level 26.4 ug/mL Medications Current Medications Medications (Trade) Dose Ordered Sig/Artemio Route PRN Reason Start Time Stop Time Status Last Admin Dose Admin Acetaminophen (Tylenol) 325 mg Q4H PRN ORAL Mild Pain / T>100.5 06/29/17 10:15 07/29/17 10:14 Acetaminophen/ Hydrocodone Bitart (Dousman 5/325) 1 tab Q6H PRN ORAL Moderate Pain (Pain Scale 4-6) 06/29/17 10:15 07/06/17 10:14 07/04/17 14:20 Amlodipine Besylate (Norvasc) 5 mg DAILY ORAL 06/30/17 09:00 07/30/17 08:59 07/04/17 09:31 Aztreonam 0.5 gm/ Dextrose 55 ml @ 110 mls/hr Q8HR IVPB 06/29/17 22:00 07/06/17 21:59 07/04/17 14:04 Chlorhexidine Gluconate (Nasreen-Hex 2%) 1 applic DAILY@2000 TOPIC 07/04/17 20:00 08/03/17 19:59 Dextrose (Dextrose 50%) 25 ml STAT PRN IV Hypoglycemia 06/29/17 12:00 07/29/17 11:59 Dextrose (Dextrose 50%) 50 ml STAT PRN IV Hypoglycemia 06/29/17 12:00 07/29/17 11:59 Docusate Sodium (Colace) 100 mg TID ORAL 07/03/17 13:00 07/30/17 08:59 07/04/17 12:16 Heparin Sodium/ Sodium Chloride (Heparin 2000 units/Ns 1000ml premix) 2,000 unit ONCE PRN INJ PICC PLACEMENT 07/04/17 08:15 07/04/17 23:59 Insulin Aspart (NovoLOG) BEFORE MEALS AND HS SUBQ 06/29/17 12:00 07/29/17 11:59 07/04/17 12:09 Insulin Aspart (NovoLOG) 6 units NOVOTIAC SUBQ 06/29/17 11:50 07/29/17 11:49 07/04/17 12:10 Insulin Detemir (Levemir) 15 units Q12HR SUBQ 06/29/17 21:00 07/29/17 20:59 07/04/17 09:33 Lansoprazole (Prevacid) 30 mg DAILY ORAL 06/30/17 09:00 07/30/17 08:59 07/04/17 09:31 Lidocaine HCl (Xylocaine 1% 30ml) 30 ml ONCE PRN INJ PICC PLACEMENT 07/04/17 08:15 07/04/17 23:59 Metronidazole (Flagyl) 500 mg Q8HR ORAL 06/30/17 22:00 07/07/17 21:59 07/04/17 14:03 Morphine Sulfate (Morphine Sulfate) 2 mg Q4H PRN IV Severe Pain (Pain Scale 7-10) 06/29/17 10:15 07/06/17 10:14 Remington Kimbrough M.D. July 04, 2017 15:01
[2017-07-04] MEDS ORDERED: Dyna-Hex 2% Top Sol 2oz TOPIC SCH (20:00)
--- NOTE | 2017-07-05 15:28 | Discharge Summary ---
Discharge Summary Discharge Summary _ DATE OF ADMISSION: 06/29/2017 DATE OF DISCHARGE: 07/04/2017 REASON FOR ADMISSION: 50 years old female with past medical history significant for diabetes mellitus , chronic kidney disease stage IV, hypertension, GERD, diabetes, also bilateral lower extremity diabetic ulcers, , status post right transmetatarsal amputation , osteomyelitis left lower extremity, cellulitis with abscess left lower extremity, status post bedside I&D in April 2017, major depression disorder, anxiety, was sent to emergency room for evaluation. In the alf facility patient was complaining of swelling , skin discoloration along with pain in the left foot. Arterial duplex in the alf facility revealed arterial occlusion in the left distal superficial femoral artery . Patient was subsequently sent to emergency department for evaluation. Upon evaluation patient was afebrile ,elevated blood pressure 150/95 noted. Laboratory workup revealed no leukocytosis, evidence of anemia with hemoglobin 9.8 hematocrit 31.2, elevated BUN 39 creatinine 2.2 ,consistent with known history of chronic kidney disease. Arterial duplex preliminary report report revealed mild stenosis left superficial femoral artery, left popliteal artery, monophasic. Patient was started on heparin drip and admitted for further evaluation and management with diagnosis of possible arterial occlusion left distal femoral artery, peripheral arterial disease, diabetes mellitus, chronic kidney disease stage IV, probably due to diabetic nephropathy, left lower extremity osteomyelitis, left lower extremity cellulitis and absces ( status post I&D), hypertension, bilateral foot ulcers, anemia. CONSULTANTS: ID specialist Dr. Rubi relief map modeler Dr. Valadez surgery Dr. Ramirez psychiatrist Vascular surgeon HOSPITAL COURSE: Patient admitted to medical surgical floor. Patient was on heparin drip. Final report of Arterial duplex revealed no evidence of significant stenosis or occlusion of the common femoral artery. Doppler of the tibial artery with moderate ischemia at rest. MRI of the left ankle of revealed abnormal fluid collection in the medial aspect of the ankle suspicious for abscess. Evidence of progressively worsening signal alteration, presumptively osteomyelitis, involving bilateral malleolus region, distal tibia plafond, talus and possibly the upper part of the calcaneus. Patient was on IV antibiotics under infectious disease specialist recommendations. Blood culture were negative. Wound culture was negative. Patint to be continued on antibiotics for total of 42 days. PICC line was placed prior to discharge. Surgeon closely followed. Patient subsequently undergone incision and drainage of the left ankle abscess on July 01. Wound care provided as per surgeon's recommendation with packing and dressing three times a day. Surgeon recommended to continue medical therapy and wound care for now. Surgeon cleared for discharge. Continue wound care and antibiotics as outpatient . At this time continue with medical management per patient wishes. Patient likely will need amputation. Left lower extremity did not seem salvageable after weeks of maximal medical therapy Per vascular surgeon,patient has palpable pedal pulses , no significant arterial ischemia or insufficiency. Vascular surgeon concluded that no revascularization was warranted at present, given palpable pedal pulses and no evidence of significant ischemia, . Rough Rounder closely followed. Renal parameters electrolytes were closely monitored. Electrolytes replaced as needed. Nephrotoxins were avoided. Patient had a known chronic kidney disease stage IV due to diabetic nephropathy. Urinalysis +3 protein.Vancomycin levels were closely monitored, urine studies were done. Anemia workup was consistent with anemia of chronic disease. Hemoglobin and hematocrit remained stable, at baseline. Blood pressure was managed with calcium channel luis a and remained stable. Blood sugar was managed with short-term long-acting insulin. Hemoglobin A1c- 8.0. Patient will need further optimization of anti-glycemic regimen as outpatient to bring hemoglobin A1c under control. Pain management was addressed and pain was controlled. DVT/ GI prophylaxis provided. Psychiatrist followed, psychiatric medication regimen provided as per psychiatrist. Patient was stable for discharge FINAL DIAGNOSES: Diabetic foot ulcer Osteomyelitis left ankle Chronic kidney disease stage IV Diabetic nephropathy Anemia of chronic kidney disease Diabetes mellitus Hypertension Left ankle abscess Status post incision and drainage left ankle abscess 07/01 History of right transmetatarsal amputation Major depressive disorder Anxiety DISCHARGE MEDICATIONS: See Medication Reconciliation list. DISCHARGE INSTRUCTIONS: Patient was discharged to alf facility. Follow up with medical doctor at the facility. Continue IV antibiotics as outlined in medication reconciliation list for total of 42 days. Continue wound care. I have been assigned to dictate discharge summary for this account. I was not involved in the patient's management. Sarah Ring NP July 05, 2017 15:28
== END 2017-07-04 16:55 | DRG 988 ==
LOC: EDBD 00:50 → EMR 02:42 → 4W 02:45 → EDBEDREQ 03:58
PROC: 0J9R0ZZ Drainage of Left Foot Subcutaneous Tissue and Fascia, Open Approach (ICD-10-PCS; principal; 2017-07-01)
PROC: 02HV33Z Insertion of Infusion Device into Superior Vena Cava, Percutaneous Approach (ICD-10-PCS; 2017-07-04)
PROC: B548ZZA Ultrasonography of Superior Vena Cava, Guidance (ICD-10-PCS; 2017-07-04)
DX: E11.69 Type 2 diabetes mellitus with other specified complication (principal); M86.8X7 Other osteomyelitis, ankle and foot; Z68.42 Body mass index [BMI] 45.0-49.9, adult; L02.416 Cutaneous abscess of left lower limb; E11.621 Type 2 diabetes mellitus with foot ulcer; N18.4 Chronic kidney disease, stage 4 (severe); E11.22 Type 2 diabetes mellitus with diabetic chronic kidney disease; D63.1 Anemia in chronic kidney disease; L97.521 Non-pressure chronic ulcer of other part of left foot limited to breakdown of skin; L97.511 Non-pressure chronic ulcer of other part of right foot limited to breakdown of skin; Z89.431 Acquired absence of right foot; I13.10 Hypertensive heart and chronic kidney disease without heart failure, with stage 1 through stage 4 chronic kidney disease, or unspecified chronic kidney disease; I70.223 Atherosclerosis of native arteries of extremities with rest pain, bilateral legs; F41.9 Anxiety disorder, unspecified; F32.9 Major depressive disorder, single episode, unspecified; E66.01 Morbid (severe) obesity due to excess calories; Z87.891 Personal history of nicotine dependence; Z79.4 Long term (current) use of insulin
CPT/HCPCS: 36415; 36569; 76937; 80053; 80061; 80202; 81001; 82607; 82728; 82746; 82962; 83036; 83540; 83550; 83735; 84100; 84300; 84550; 85025; 85610; 85651; 85730; 86140; 86850; 86900; 86901; 87040; 87070; 87081; 87086; 87181; 87205; 89050; 93926; 99285; A9585; J1815; S5561

== ENCOUNTER 2017-11-28 17:03 | Inpatient (IN) | payer MEDICARE, MEDICAID ==
[~2017-11-28] VITALS: Ht 165.1 cm; Wt 118.1 kg
[~2017-11-28 17:03] MED LIST changes: +ACETAMINOPHEN325 M1 ORAL; +COLACE100 MG ORAL; +EPOGEN20000 UNI1 SUBQ; +FERROUS SULFAT325 MG ORAL; +FOLIC ACID1 MG ORAL; +INVANZ1 G1 IM; +NORVASC5 MG ORAL; +RESTORIL15 MG ORAL; +VANCOMYCIN IVINF
--- NOTE | 2017-11-28 17:07 | Emergency Room Report ---
History of Present Illness General Chief Complaint: Nausea, Vomiting, and Diarrhea Present Illness HPI Patient is a 52-year-old female brought in by EMS after increased vomiting and fever. The patient been sent in from nursing facility. The patient was noted to have been vomiting clear fluid.The patient recently been discharged from the hospital. Patient was noted to have chronic leg ulcers as well as generalized abdominal pain. Allergies: Coded Allergies: PENICILLINS (Verified Allergy, Severe, SWOLLEN BODY, 04/23/17) Per Daughter, patient has tolerated Amoxicillin Tolerated Ceftriaxone 04/22/17 Uncoded Allergies: Blood Transfusion (Adverse Reaction, Unknown, 06/29/17) Pt states that she develops lower extremity wounds after blood transfusions Patient History Past Medical History: see triage record Reviewed Nursing Documentation: PMH: Agreed; PSxH: Agreed Nursing Documentation-PMH Hx Hypertension: Yes Hx Diabetes: Yes - Type 2 Hx Cancer: No Hx Gastrointestinal Problems: Yes - GERD, Dysphagia Hx Neurological Problems: Yes - Muscle weakness, Cellulitis of left lower leg Review of Systems All Other Systems: negative except mentioned in HPI Physical Exam Vital Signs Date Time Temp Pulse Resp B/P (MAP) Pulse Ox O2 Delivery O2 Flow Rate FiO2 11/28/17 16:57 101.2 105 20 163/85 94 Room Air 101.1 Sp02 EP Interpretation: reviewed, normal General Appearance: normal inspection, no apparent distress, alert, GCS 15, Chronically Ill Head: atraumatic ENT: normal ENT inspection, hearing grossly normal, normal voice Neck: normal inspection, full range of motion, supple, no bony tend Respiratory: normal inspection, lungs clear, normal breath sounds, no respiratory distress, no retraction, no wheezing Cardiovascular #1: regular rate, rhythm, no edema Gastrointestinal: normal inspection, normal bowel sounds, non tender, soft, no guarding, no hernia Genitourinary: no CVA tenderness Musculoskeletal: normal inspection, back normal, normal range of motion Neurologic: normal inspection, alert, oriented x3, responsive, burner operator III-XII nml as tested, speech normal Psychiatric: normal inspection, judgement/insight normal, mood/affect normal Skin: other - bilateral lower extremity wounds Medical Decision Making Diagnostic Impression: Primary Impression: Sepsis Additional Impression: Dehydration ER Course Patient presented for fever and vomiting.Differential diagnosis included wasn't limited to pneumonia, urinary tract infection, drug fever, allergic reaction, sepsis, cholecystitis, among others.Because of complexity of patient's case laboratory testing and imaging studies were ordered.Patient is given IV fluids the patient was started on IV antibiotics.Dr. Tobin Albert was contacted for inpatient management Laboratory Tests Test 11/30/17 05:50 12/01/17 06:45 12/01/17 14:50 White Blood Count 8.5 K/UL (4.8-10.8) 5.8 K/UL (4.8-10.8) Red Blood Count 3.07 M/UL (4.20-5.40) L 3.06 M/UL (4.20-5.40) L Hemoglobin 8.4 G/DL (12.0-16.0) L 8.3 G/DL (12.0-16.0) L Hematocrit 26.5 % (37.0-47.0) L 26.4 % (37.0-47.0) L Mean Corpuscular Volume 87 FL (80-99) 86 FL (80-99) Mean Corpuscular Hemoglobin 27.4 PG (27.0-31.0) 27.2 PG (27.0-31.0) Mean Corpuscular Hemoglobin Concent 31.7 G/DL (32.0-36.0) L 31.5 G/DL (32.0-36.0) L Red Cell Distribution Width 13.4 % (11.6-14.8) 13.6 % (11.6-14.8) Platelet Count 139 K/UL (150-450) L 143 K/UL (150-450) L Mean Platelet Volume 8.9 FL (6.5-10.1) 8.9 FL (6.5-10.1) Neutrophils (%) (Auto) 75.3 % (45.0-75.0) H 62.1 % (45.0-75.0) Lymphocytes (%) (Auto) 14.3 % (20.0-45.0) L 25.4 % (20.0-45.0) Monocytes (%) (Auto) 9.9 % (1.0-10.0) 10.5 % (1.0-10.0) H Eosinophils (%) (Auto) 0.0 % (0.0-3.0) 1.1 % (0.0-3.0) Basophils (%) (Auto) 0.6 % (0.0-2.0) 0.8 % (0.0-2.0) Sodium Level 137 MMOL/L (136-145) 138 MMOL/L (136-145) Potassium Level 4.1 MMOL/L (3.5-5.1) 4.0 MMOL/L (3.5-5.1) Chloride Level 107 MMOL/L (98-107) 107 MMOL/L (98-107) Carbon Dioxide Level 20 MMOL/L (21-32) L 21 MMOL/L (21-32) Anion Gap 10 mmol/L (5-15) 10 mmol/L (5-15) Blood Urea Nitrogen 41 mg/dL (7-18) H 34 mg/dL (7-18) H Creatinine 2.6 MG/DL (0.55-1.30) H 2.4 MG/DL (0.55-1.30) H Estimate Glomerular Filtration Rate 23.3 mL/min (>60) 25.6 mL/min (>60) Glucose Level 110 MG/DL (74-106) #H 149 MG/DL (74-106) H Calcium Level 8.7 MG/DL (8.5-10.1) 8.3 MG/DL (8.5-10.1) L Triglycerides Level 133 MG/DL (30-150) Cholesterol Level 170 MG/DL (< 200) LDL Cholesterol 103 mg/dL (<100) H HDL Cholesterol 36 MG/DL (40-60) L Cholesterol/HDL Ratio 4.7 (3.3-4.4) H Stool Occult Blood Pending Last Vital Signs Date Time Temp Pulse Resp B/P (MAP) Pulse Ox O2 Delivery O2 Flow Rate FiO2 11/28/17 16:57 101.2 105 20 163/85 94 Room Air 101.1 Status: improved Disposition: HOME, SELF-CARE Condition: Stable Carlos Holman MD Nov 28, 2017 17:07
[2017-11-28] MEDS ORDERED: PROTONIX20 MG ORAL (17:18)
[2017-11-28] MEDS ORDERED: ASCORBIC ACID500 MG ORAL (17:18)
[2017-11-28] MEDS ORDERED: ZINC10 MG ORAL (17:18)
[2017-11-28] MEDS ORDERED: prostat (17:18)
[2017-11-28] MEDS ORDERED: TRAMADOL HCL50 MG ORAL ×2 (17:18→20:14)
[2017-11-28] MEDS ORDERED: LORATADINE10 M1 PO (17:18)
[2017-11-28] MEDS ORDERED: ZOFRAN ODT8 MG ORAL (17:18)
[2017-11-28 18:22] LABS: ANION GAP 12 mmol/L (5-15); BLOOD UREA NITROGEN 37 mg/dL (7-18); CALCIUM 9.3 MG/DL (8.5-10.1); CARBON DIOXIDE 22 MMOL/L (21-32); CHLORIDE 103 MMOL/L (98-107); CREATININE 2.6 MG/DL (0.55-1.30); SODIUM 137 MMOL/L (136-145)
[2017-11-28 18:26] LABS: HEMATOCRIT 33.1 % (37.0-47.0); HEMOGLOBIN 10.6 G/DL (12.0-16.0); MEAN CORPUSCULAR VOLUME 89 FL (80-99); PLATELET COUNT 160 K/UL (150-450); RED BLOOD COUNT 3.72 M/UL (4.20-5.40); RED CELL DISTRIBUTION WIDTH 13.8 % (11.6-14.8); WHITE BLOOD COUNT 13.4 K/UL (4.8-10.8)
[2017-11-28 18:30] VITALS: BP 177/94
--- NOTE | 2017-11-28 18:38 | Diagnostic Imaging Report ---
EXAM: XR Chest, 1 View CLINICAL HISTORY: SOB TECHNIQUE: Frontal view of the chest. COMPARISON: 04/28/17 FINDINGS: Lungs: Unremarkable. No consolidation. Pleural space: Unremarkable. No pneumothorax. Heart: Borderline cardiomegaly. Mediastinum: Unremarkable. Bones/joints: Mild thoracic levocurvature. IMPRESSION: No evidence of acute pulmonary disease.
[2017-11-28 18:44] LABS: ALANINE AMINOTRANSFERASE 22 U/L (12-78); ALBUMIN 2.9 G/DL (3.4-5.0); ALBUMIN/GLOBULIN RATIO 0.5 (1.0-2.7); ALKALINE PHOSPHATASE 84 U/L (46-116); ASPARTATE AMINO TRANSFERASE 15 U/L (15-37); BILIRUBIN,TOTAL 0.6 MG/DL (0.2-1.0); CKMB < 0.5 NG/ML (0.0-3.6); CREATINE KINASE 130 U/L (26-308); PHOSPHORUS 3.2 MG/DL (2.5-4.9)
[2017-11-28 19:30] VITALS: BP 168/94
[2017-11-28] MEDS ORDERED: AMLODIPINE BESY10 MG ORAL (19:43)
[2017-11-28] MEDS ORDERED: NOVOLOG100 UNIT/3 SUBQ ×2 (19:56→19:59)
[2017-11-28] MEDS ORDERED: PANTOPRAZOLE SO40 MG ORAL (20:07)
[2017-11-28] MEDS ORDERED: ZINC SULFATE220 M2 ORAL (20:09)
[2017-11-28] MEDS ORDERED: ZOFRAN4 M3 ORAL (20:10)
[2017-11-28] MEDS ORDERED: PROSTATE THERA1 EACH PO (20:11)
[2017-11-28] MEDS ORDERED: PROSTAT PO (20:12)
[2017-11-28 20:30] VITALS: BP 154/72
[2017-11-28 20:56] LABS: APPEARANCE,URINE CLEAR; BILIRUBIN, URINE NEGATIVE (NEGATIVE); COLOR,URINE PALE YELLOW; GLUCOSE, URINE (UA) 3+ (NEGATIVE); KETONES,URINE 2+ (NEGATIVE); LEUKOCYTE ESTERASE ,URINE NEGATIVE (NEGATIVE); NITRITE,URINE NEGATIVE (NEGATIVE); PH,URINE 6 (4.5-8.0); PROTEIN,URINE 4+ (NEGATIVE); UROBILINOGEN,URINE NORMAL MG/DL (0.0-1.0)
[2017-11-28 21:00] VITALS: BP 150/70
[2017-11-28] MEDS ORDERED: Nitroglycerin Subl 0.4mg tab SL PRN (21:45)
[2017-11-28] MEDS ORDERED: traMADol 50mg tab ORAL PRN (21:45)
[2017-11-28] MEDS ORDERED: Acetaminophen 650 MG SUPP RECTAL PRN ×2 (21:45)
[2017-11-28 22:15] VITALS: BP 163/96
[2017-11-28] MEDS ORDERED: cefTRIAXone 1 GM in D5W 50 ML IVPB SCH (23:00)
[2017-11-28] MEDS: NS w/KCl 20mEq 1,000 ML IV SCH (23:49)
[2017-11-28] MEDS: Heparin 5000 units/ml inj SUBQ SCH (23:52)
[2017-11-29] VITALS: BP 172/87
[2017-11-29 04:00] VITALS: BP 111/64
[2017-11-29] MEDS: NovoLOG Insulin Flexpen SUBQ SCH ×4 (05:49→20:32)
[2017-11-29] MEDS: Heparin 5000 units/ml inj SUBQ SCH ×3 (05:49→21:22)
--- NOTE | 2017-11-29 07:19 | Consultation ---
History of Present Illness General Date patient seen: Nov 29, 2017 Time patient seen: 06:45 Chief Complaint: Nausea, Vomiting, and Diarrhea Referring physician: dr Albert Reason for Consultation: inpt management Present Illness HPI 52 y/old female with PMH of HTN, DM type 2, dysphagia, GERD, hx of osteomyelitis , s/p Rx, was sent from the [facility] for vomiting and fever. Upon evaluation patient was febrile and tachycardic; blood pressure was on the high side 163/85. Laboratory workup revealed leukocytosis WBC 13.4 ; anemia with hemoglobin 10.6 hematocrit 33.1 Phemister showed evidence of renal failure with BUN 37 creatinine 2.6 Magnesium 1.5 , stable potassium. Troponin negative Lactic acid 1.3 Urinalysis with evidence of UTI Chest x-ray revealed no acute cardiopulmonary pathology Septic workup initiated Patient admitted for further management Allergies: Coded Allergies: PENICILLINS (Verified Allergy, Severe, SWOLLEN BODY, 04/23/17) Per Daughter, patient has tolerated Amoxicillin Tolerated Ceftriaxone 04/22/17 Uncoded Allergies: Blood Transfusion (Adverse Reaction, Unknown, 06/29/17) Pt states that she develops lower extremity wounds after blood transfusions Medication History Scheduled Amlodipine Besylate* (Amlodipine Besylate*), 10 MG ORAL DAILY, (Reported) Ascorbic Acid* (Ascorbic Acid*), 500 MG ORAL TWICE A DAY, (Reported) Ferrous Sulfate* (Ferrous Sulfate*), 325 MG ORAL DAILY, (Reported) Folic Acid* (Folic Acid*), 1 MG ORAL DAILY, (Reported) Insulin Aspart* (Novolog*), 6 UNITS SUBQ THREE TIMES A DAY, (Reported) Insulin Detemir (Levemir Flexpen), 15 UNITS SUBQ Q12HR Zinc Sulfate (Zinc Sulfate), 220 MG ORAL DAILY, (Reported) [PROSTAT liq], 30 ML PO BID, (Reported) Scheduled PRN Insulin Aspart* (Novolog*), 0 SUBQ BEDTIME PRN for PER SLIDING SCALE, ( Reported) Ondansetron* (Zofran*), 4 MG ORAL Q6H PRN for Nausea & Vomiting, (Reported) Pantoprazole* (Pantoprazole*), 40 MG ORAL DAILY PRN for GIT PPX, (Reported) Tramadol Hcl* (Ultram*), 50 MG ORAL Q6H PRN for For Pain, (Reported) Tramadol Hcl* (Ultram*), 25 MG ORAL 30-45 minutes PRN for BEFORE WOUND CLEANING, (Reported) Miscellaneous Medications Loratadine (Loratadine), 10 MG PO, (Reported) Patient History Healthcare decision maker Resuscitation status Full Code Advanced Directive on File Past Medical/Surgical History Past Medical/Surgical History: (1) Osteomyelitis (2) CKD (chronic kidney disease) (3) Anemia in chronic kidney disease (4) Diabetic nephropathy (5) Diabetes mellitus (6) Leg ulcer, left Review of Systems Constitutional: Reports: fever, weakness Eye: Reports: no symptoms ENT: Reports: no symptoms Respiratory: Reports: no symptoms Cardiovascular: Reports: other - HTN Musculoskeletal: Reports: other - R toes amputation, hx of OM, s/p treatment Skin: Reports: other - R toes amputation wound Psychiatric: Reports: depressed feelings Neurological: Reports: no symptoms Endocrine: Reports: other - DM Hematologic/Lymphatic: Reports: anemia Physical Exam General Appearance: no apparent distress, other - awake, alert, obese AA female in NAD HEENT: normocephalic, atraumatic, anicteric Neck: supple Respiratory/Chest: lungs clear, no respiratory distress Cardiovascular/Chest: normal rate - SR on tele Abdomen: normal bowel sounds, non tender, soft - obese Extremities: no edema, other - R toe amputation Skin Exam: warm/dry, other - r toes amputation, wound , L heel Neurologic: abnormal gait, alert, oriented x 3 Musculoskeletal: atrophy - BLE Last 24 Hour Vital Signs Date Time Temp Pulse Resp B/P (MAP) Pulse Ox O2 Delivery O2 Flow Rate FiO2 11/29/17 05:48 98.0 100 18 153/80 98 Room Air 11/29/17 04:07 92 11/29/17 04:00 99.7 91 19 111/64 (80) 98 99.7 11/29/17 00:58 100.9 11/29/17 00:33 107 11/29/17 00:28 102.3 11/29/17 00:00 102.4 104 19 172/87 (115) 100 102.4 11/28/17 22:15 Room Air 11/28/17 22:15 100.7 101 19 163/96 (118) 100 100.7 11/28/17 21:00 97.9 100 18 150/70 100 Room Air 97.9 11/28/17 20:30 98.1 100 18 154/72 100 Room Air 98.1 11/28/17 19:30 98.1 100 18 168/94 100 Room Air 98.1 11/28/17 18:30 104 20 177/94 100 Room Air 11/28/17 16:57 101.2 105 20 163/85 94 Room Air 101.1 Intake and Output 11/28/17 11/29/17 19:00 07:00 Intake Total 2013.75 ml Balance 2013.75 ml Intake Oral 500 ml IV Total 1513.75 ml Laboratory Tests Test 11/28/17 17:55 11/28/17 20:35 White Blood Count 13.4 K/UL (4.8-10.8) H Red Blood Count 3.72 M/UL (4.20-5.40) L Hemoglobin 10.6 G/DL (12.0-16.0) L Hematocrit 33.1 % (37.0-47.0) L Mean Corpuscular Volume 89 FL (80-99) Mean Corpuscular Hemoglobin 28.5 PG (27.0-31.0) Mean Corpuscular Hemoglobin Concent 32.0 G/DL (32.0-36.0) Red Cell Distribution Width 13.8 % (11.6-14.8) Platelet Count 160 K/UL (150-450) Mean Platelet Volume 8.7 FL (6.5-10.1) Neutrophils (%) (Auto) % (45.0-75.0) Lymphocytes (%) (Auto) % (20.0-45.0) Monocytes (%) (Auto) % (1.0-10.0) Eosinophils (%) (Auto) % (0.0-3.0) Basophils (%) (Auto) % (0.0-2.0) Differential Total Cells Counted 100 Neutrophils % (Manual) 86 % (45-75) H Lymphocytes % (Manual) 5 % (20-45) L Monocytes % (Manual) 7 % (1-10) Eosinophils % (Manual) 0 % (0-3) Basophils % (Manual) 0 % (0-2) Band Neutrophils 2 % (0-8) Platelet Estimate Adequate Platelet Morphology Normal Hypochromasia 1+ Anisocytosis 1+ Sodium Level 137 MMOL/L (136-145) Potassium Level 4.0 MMOL/L (3.5-5.1) Chloride Level 103 MMOL/L (98-107) Carbon Dioxide Level 22 MMOL/L (21-32) Anion Gap 12 mmol/L (5-15) Blood Urea Nitrogen 37 mg/dL (7-18) H Creatinine 2.6 MG/DL (0.55-1.30) H Estimat Glomerular Filtration Rate 23.3 mL/min (>60) Glucose Level 293 MG/DL (74-106) H Lactic Acid Level 1.30 mmol/L (0.4-2.0) Calcium Level 9.3 MG/DL (8.5-10.1) Phosphorus Level 3.2 MG/DL (2.5-4.9) Magnesium Level 1.5 MG/DL (1.8-2.4) L Total Bilirubin 0.6 MG/DL (0.2-1.0) Aspartate Amino Transf (AST/SGOT) 15 U/L (15-37) Alanine Aminotransferase (ALT/SGPT) 22 U/L (12-78) Alkaline Phosphatase 84 U/L (46-116) Total Creatine Kinase 130 U/L (26-308) Creatine Kinase MB < 0.5 NG/ML (0.0-3.6) Creatine Kinase MB Relative Index 0.3 Troponin I 0.008 ng/mL (0.000-0.056) Total Protein 8.5 G/DL (6.4-8.2) H Albumin 2.9 G/DL (3.4-5.0) L Globulin 5.6 g/dL Albumin/Globulin Ratio 0.5 (1.0-2.7) L Urine Color Pale yellow Urine Appearance Clear Urine pH 6 (4.5-8.0) Urine Specific [place] 1.015 (1.005-1.035) Urine Protein 4+ (NEGATIVE) H Urine Glucose (UA) 3+ (NEGATIVE) H Urine Ketones 2+ (NEGATIVE) H Urine Blood 4+ (NEGATIVE) H Urine Nitrite Negative (NEGATIVE) Urine Bilirubin Negative (NEGATIVE) Urine Urobilinogen Normal MG/DL (0.0-1.0) Urine Leukocyte Esterase Negative (NEGATIVE) Urine RBC 5-10 /HPF (0 - 2) H Urine WBC 2-4 /HPF (0 - 2) Urine Squamous Epithelial Cells Few /LPF (NONE/OCC) Urine Bacteria Many /HPF (NONE) H Microbiology Date/Time Source Procedure Growth Status 11/28/17 17:55 Nasal Nares Influenza Types A,B Antigen (DAFNE) - Final Complete Height (Feet): 5 Height (Inches): 5.00 Weight (Pounds): 200 Medications Current Medications Medications (Trade) Dose Ordered Sig/Artemio Route PRN Reason Start Time Stop Time Status Last Admin Dose Admin Acetaminophen (Tylenol) 650 mg Q4H PRN ORAL fever 11/28/17 21:45 12/28/17 21:44 11/29/17 00:28 Acetaminophen (Tylenol) 650 mg Q4H PRN ORAL Mild Pain (Pain Scale 1-3) 11/28/17 21:45 12/28/17 21:44 Acetaminophen (Tylenol) 650 mg Q4H PRN RECTAL Mild Pain (Pain Scale 1-3) 11/28/17 21:45 12/28/17 21:44 Acetaminophen (Tylenol) 650 mg Q4H PRN RECTAL fever 11/28/17 21:45 12/28/17 21:44 Amlodipine Besylate (Norvasc) 10 mg DAILY ORAL 11/29/17 09:00 12/29/17 08:59 Ceftriaxone Sodium 1 gm/ Dextrose 50 ml @ 100 mls/hr DAILY IVPB 11/29/17 09:00 12/06/17 08:59 Clonidine HCl (Catapres Tab) 0.1 mg Q6H PRN ORAL sbp>160 11/28/17 21:45 12/28/17 21:44 Dextrose (Dextrose 50%) 25 ml Q30M PRN IV Hypoglycemia 11/28/17 21:45 12/28/17 21:44 Dextrose (Dextrose 50%) 50 ml Q30M PRN IV Hypoglycemia 11/28/17 21:45 12/28/17 21:44 Heparin Sodium (Porcine) (Heparin 5000 units/ml) 5,000 units EVERY 8 HOURS SUBQ 11/28/17 22:00 12/28/17 21:59 11/29/17 05:49 Insulin Aspart (NovoLOG) BEFORE MEALS AND HS SUBQ 11/29/17 06:30 12/29/17 06:29 11/29/17 05:49 Nitroglycerin (Ntg) 0.4 mg Q5M PRN SL Prn Chest Pain 11/28/17 21:45 12/28/17 21:44 Ondansetron HCl (Zofran) 4 mg Q6H PRN IVP Nausea & Vomiting 11/28/17 21:45 12/28/17 21:44 Pantoprazole (Protonix) 40 mg DAILY ORAL 11/29/17 09:00 12/29/17 08:59 Sodium Chloride 1,000 ml @ 75 mls/hr [id number] IV 11/28/17 22:41 12/28/17 22:40 11/28/17 23:49 Tramadol HCl (Ultram) 25 mg DAILY ORAL 11/29/17 09:00 12/06/17 08:59 Tramadol HCl (Ultram) 50 mg Q6H PRN ORAL For Pain 11/28/17 21:45 12/05/17 21:44 Zinc Sulfate (Zinc Sulfate) 220 mg DAILY ORAL 11/29/17 09:00 12/29/17 08:59 Assessment/Plan Assessment/Plan ASSESSMENT sepsis UTI acute renal failure on chronic renal insufficiency dehydration hypomagnesemia anemia hypertension diabetes mellitus type 2 diabetic nephropathy PVD with R toes amputation obesity PLAN OF CARE tele IV fluids empiric abx, f/up with culture monitor renal parameters, lytes, correct electrolytes as needed Mg already corrected avoid nephrotoxic O2 wprn to keep sat above 92% pulmonary toilet prn BP management with CCB and Clonidine prn BS management with SSI DVT GI prophylaxis Arterial Duplex BLE monitor H&H with goal to keep hemoglobin above 7 anemia workup supportive care a/emetic prn bowel regimen wound care case discussed and evaluated by supervising physician Sarah Ring NP Nov 29, 2017 07:19
[2017-11-29 07:44] LABS: BASOPHILS % (AUTO) 0.5 % (0.0-2.0); HEMATOCRIT 29.8 % (37.0-47.0); HEMOGLOBIN 9.4 G/DL (12.0-16.0); LYMPHOCYTES % (AUTO) 7.7 % (20.0-45.0); MEAN CORPUSCULAR VOLUME 87 FL (80-99); MONOCYTES % (AUTO) 7.3 % (1.0-10.0); NEUTROPHILS % (AUTO) 84.4 % (45.0-75.0); PLATELET COUNT 148 K/UL (150-450); RED BLOOD COUNT 3.45 M/UL (4.20-5.40); RED CELL DISTRIBUTION WIDTH 13.7 % (11.6-14.8); WHITE BLOOD COUNT 13.6 K/UL (4.8-10.8)
[2017-11-29 08:00] VITALS: BP 123/74
[2017-11-29 08:11] LABS: ALANINE AMINOTRANSFERASE 21 U/L (12-78); ALBUMIN 2.4 G/DL (3.4-5.0); ALBUMIN/GLOBULIN RATIO 0.5 (1.0-2.7); ALKALINE PHOSPHATASE 73 U/L (46-116); ANION GAP 11 mmol/L (5-15); ASPARTATE AMINO TRANSFERASE 15 U/L (15-37); BILIRUBIN,TOTAL 0.4 MG/DL (0.2-1.0); BLOOD UREA NITROGEN 40 mg/dL (7-18); CALCIUM 8.7 MG/DL (8.5-10.1); CARBON DIOXIDE 21 MMOL/L (21-32); CHLORIDE 104 MMOL/L (98-107); CREATININE 2.7 MG/DL (0.55-1.30); POTASSIUM 3.8 MMOL/L (3.5-5.1); SODIUM 136 MMOL/L (136-145)
[2017-11-29] MEDS: traMADol 50mg tab ORAL SCH (08:40)
[2017-11-29] MEDS: Zinc Sulfate 220mg cap ORAL SCH (08:41)
[2017-11-29] MEDS: cefTRIAXone 1 GM in D5W 50 ML IVPB SCH (09:51)
[2017-11-29 11:36] LABS: FERRITIN 294 NG/ML (8-388)
[2017-11-29 12:00] VITALS: BP 114/68
[2017-11-29 12:02] LABS: % IRON SATURATION 10 % (15-50); IRON 13 ug/dL (50-175); TOTAL IRON BINDING CAPACITY 133 ug/dL (250-450)
[2017-11-29] MEDS: NS w/KCl 20mEq 1,000 ML IV SCH (12:05)
--- NOTE | 2017-11-29 13:04 | Consultation ---
History of Present Illness General Date patient seen: Nov 29, 2017 Chief Complaint: Nausea, Vomiting, and Diarrhea Referring physician: dr Albert Reason for Consultation: abd pain/n/v/d Present Illness HPI 52 y/old female with PMH of HTN, DM type 2, dysphagia, GERD, hx of osteomyelitis , s/p Rx, was sent from the nursing [facility] for vomiting and fever. Upon evaluation patient was febrile and tachycardic; Laboratory workup revealed leukocytosis WBC 13.4. abdominal pain prior. surgery called to evaluate for abdominal pain, n/v/d, and leg wound. patient seen, chart reviewed , patient examined. patient known to me from prior visits for infected wounds on lower extremities. Allergies: Coded Allergies: PENICILLINS (Verified Allergy, Severe, SWOLLEN BODY, 04/23/17) Per Daughter, patient has tolerated Amoxicillin Tolerated Ceftriaxone 04/22/17 Uncoded Allergies: Blood Transfusion (Adverse Reaction, Unknown, 06/29/17) Pt states that she develops lower extremity wounds after blood transfusions Medication History Scheduled Amlodipine Besylate* (Amlodipine Besylate*), 10 MG ORAL DAILY, (Reported) Ascorbic Acid* (Ascorbic Acid*), 500 MG ORAL TWICE A DAY, (Reported) Ferrous Sulfate* (Ferrous Sulfate*), 325 MG ORAL DAILY, (Reported) Folic Acid* (Folic Acid*), 1 MG ORAL DAILY, (Reported) Insulin Aspart* (Novolog*), 6 UNITS SUBQ THREE TIMES A DAY, (Reported) Insulin Detemir (Levemir Flexpen), 15 UNITS SUBQ Q12HR Zinc Sulfate (Zinc Sulfate), 220 MG ORAL DAILY, (Reported) [PROSTAT liq], 30 ML PO BID, (Reported) Scheduled PRN Insulin Aspart* (Novolog*), 0 SUBQ BEDTIME PRN for PER SLIDING SCALE, ( Reported) Ondansetron* (Zofran*), 4 MG ORAL Q6H PRN for Nausea & Vomiting, (Reported) Pantoprazole* (Pantoprazole*), 40 MG ORAL DAILY PRN for GIT PPX, (Reported) Tramadol Hcl* (Ultram*), 50 MG ORAL Q6H PRN for For Pain, (Reported) Tramadol Hcl* (Ultram*), 25 MG ORAL 30-45 minutes PRN for BEFORE WOUND CLEANING, (Reported) Miscellaneous Medications Loratadine (Loratadine), 10 MG PO, (Reported) Patient History History Provided By: Patient, Medical Record, PMD Healthcare decision maker Resuscitation status Full Code Advanced Directive on File Past Medical/Surgical History Past Medical/Surgical History: (1) Bacteremia (2) Fungemia (3) Abscess of left leg (4) Diabetic foot ulcer (5) Sepsis (6) Diabetes mellitus (7) Diabetic nephropathy (8) Osteomyelitis (9) Anemia in chronic kidney disease (10) CKD (chronic kidney disease) (11) Leg ulcer, left Review of Systems All Other Systems: negative except mentioned in HPI Physical Exam General Appearance: no apparent distress Lines, tubes and drains: peripheral HEENT: mucous membranes moist Neck: normal inspection Respiratory/Chest: normal breath sounds, no respiratory distress, no accessory muscle use Cardiovascular/Chest: tachycardia Abdomen: normal bowel sounds, soft, no organomegaly, no mass Extremities: other Skin Exam: other Neurologic: alert Last 24 Hour Vital Signs Date Time Temp Pulse Resp B/P (MAP) Pulse Ox O2 Delivery O2 Flow Rate FiO2 11/29/17 12:22 100.3 11/29/17 12:00 100.3 98 16 114/68 (83) 98 100.3 11/29/17 09:51 96 123/74 11/29/17 09:10 98.8 11/29/17 09:00 Room Air 11/29/17 08:40 98.8 11/29/17 08:00 98.8 96 20 123/74 (90) 98 98.8 11/29/17 05:48 98.0 100 18 153/80 98 Room Air 11/29/17 04:07 92 11/29/17 04:00 99.7 91 19 111/64 (80) 98 99.7 11/29/17 00:58 100.9 11/29/17 00:33 107 11/29/17 00:28 102.3 11/29/17 00:00 102.4 104 19 172/87 (115) 100 102.4 11/28/17 22:15 Room Air 11/28/17 22:15 100.7 101 19 163/96 (118) 100 100.7 11/28/17 21:00 97.9 100 18 150/70 100 Room Air 97.9 11/28/17 20:30 98.1 100 18 154/72 100 Room Air 98.1 11/28/17 19:30 98.1 100 18 168/94 100 Room Air 98.1 11/28/17 18:30 104 20 177/94 100 Room Air 11/28/17 16:57 101.2 105 20 163/85 94 Room Air 101.1 Intake and Output 11/28/17 11/29/17 19:00 07:00 Intake Total 2088.75 ml Balance 2088.75 ml Intake Oral 500 ml IV Total 1588.75 ml Laboratory Tests Test 11/28/17 17:55 11/28/17 20:35 11/29/17 07:10 White Blood Count 13.4 K/UL (4.8-10.8) H 13.6 K/UL (4.8-10.8) H Red Blood Count 3.72 M/UL (4.20-5.40) L 3.45 M/UL (4.20-5.40) L Hemoglobin 10.6 G/DL (12.0-16.0) L 9.4 G/DL (12.0-16.0) L Hematocrit 33.1 % (37.0-47.0) L 29.8 % (37.0-47.0) L Mean Corpuscular Volume 89 FL (80-99) 87 FL (80-99) Mean Corpuscular Hemoglobin 28.5 PG (27.0-31.0) 27.1 PG (27.0-31.0) Mean Corpuscular Hemoglobin Concent 32.0 G/DL (32.0-36.0) 31.3 G/DL (32.0-36.0) L Red Cell Distribution Width 13.8 % (11.6-14.8) 13.7 % (11.6-14.8) Platelet Count 160 K/UL (150-450) 148 K/UL (150-450) L Mean Platelet Volume 8.7 FL (6.5-10.1) 9.1 FL (6.5-10.1) Neutrophils (%) (Auto) % (45.0-75.0) 84.4 % (45.0-75.0) H Lymphocytes (%) (Auto) % (20.0-45.0) 7.7 % (20.0-45.0) L Monocytes (%) (Auto) % (1.0-10.0) 7.3 % (1.0-10.0) Eosinophils (%) (Auto) % (0.0-3.0) 0.0 % (0.0-3.0) Basophils (%) (Auto) % (0.0-2.0) 0.5 % (0.0-2.0) Differential Total Cells Counted 100 Neutrophils % (Manual) 86 % (45-75) H Lymphocytes % (Manual) 5 % (20-45) L Monocytes % (Manual) 7 % (1-10) Eosinophils % (Manual) 0 % (0-3) Basophils % (Manual) 0 % (0-2) Band Neutrophils 2 % (0-8) Platelet Estimate Adequate Platelet Morphology Normal Hypochromasia 1+ Anisocytosis 1+ Sodium Level 137 MMOL/L (136-145) 136 MMOL/L (136-145) Potassium Level 4.0 MMOL/L (3.5-5.1) 3.8 MMOL/L (3.5-5.1) Chloride Level 103 MMOL/L (98-107) 104 MMOL/L (98-107) Carbon Dioxide Level 22 MMOL/L (21-32) 21 MMOL/L (21-32) Anion Gap 12 mmol/L (5-15) 11 mmol/L (5-15) Blood Urea Nitrogen 37 mg/dL (7-18) H 40 mg/dL (7-18) H Creatinine 2.6 MG/DL (0.55-1.30) H 2.7 MG/DL (0.55-1.30) H Estimat Glomerular Filtration Rate 23.3 mL/min (>60) 22.2 mL/min (>60) Glucose Level 293 MG/DL (74-106) H 233 MG/DL (74-106) H Lactic Acid Level 1.30 mmol/L (0.4-2.0) Calcium Level 9.3 MG/DL (8.5-10.1) 8.7 MG/DL (8.5-10.1) Phosphorus Level 3.2 MG/DL (2.5-4.9) Magnesium Level 1.5 MG/DL (1.8-2.4) L 2.0 MG/DL (1.8-2.4) Total Bilirubin 0.6 MG/DL (0.2-1.0) 0.4 MG/DL (0.2-1.0) Aspartate Amino Transf (AST/SGOT) 15 U/L (15-37) 15 U/L (15-37) Alanine Aminotransferase (ALT/SGPT) 22 U/L (12-78) 21 U/L (12-78) Alkaline Phosphatase 84 U/L (46-116) 73 U/L (46-116) Total Creatine Kinase 130 U/L (26-308) Creatine Kinase MB < 0.5 NG/ML (0.0-3.6) Creatine Kinase MB Relative Index 0.3 Troponin I 0.008 ng/mL (0.000-0.056) 0.008 ng/mL (0.000-0.056) Total Protein 8.5 G/DL (6.4-8.2) H 7.3 G/DL (6.4-8.2) Albumin 2.9 G/DL (3.4-5.0) L 2.4 G/DL (3.4-5.0) L Globulin 5.6 g/dL 4.9 g/dL Albumin/Globulin Ratio 0.5 (1.0-2.7) L 0.5 (1.0-2.7) L Urine Color Pale yellow Urine Appearance Clear Urine pH 6 (4.5-8.0) Urine Specific [place] 1.015 (1.005-1.035) Urine Protein 4+ (NEGATIVE) H Urine Glucose (UA) 3+ (NEGATIVE) H Urine Ketones 2+ (NEGATIVE) H Urine Blood 4+ (NEGATIVE) H Urine Nitrite Negative (NEGATIVE) Urine Bilirubin Negative (NEGATIVE) Urine Urobilinogen Normal MG/DL (0.0-1.0) Urine Leukocyte Esterase Negative (NEGATIVE) Urine RBC 5-10 /HPF (0 - 2) H Urine WBC 2-4 /HPF (0 - 2) Urine Squamous Epithelial Cells Few /LPF (NONE/OCC) Urine Bacteria Many /HPF (NONE) H Iron Level 13 ug/dL (50-175) L Total Iron Binding Capacity 133 ug/dL (250-450) L Percent Iron Saturation 10 % (15-50) L Unsaturated Iron Binding 120 ug/dL (112-346) Ferritin 294 NG/ML (8-388) Lipase 199 U/L (73-393) Carcinoembryonic Antigen Pending Vitamin B12 Level 330 PG/ML (193-986) Folate 62.2 NG/ML (8.6-58.9) H Microbiology Date/Time Source Procedure Growth Status 11/28/17 17:55 Nasal Nares Influenza Types A,B Antigen (DAFNE) - Final Complete Height (Feet): 5 Height (Inches): 5.00 Weight (Pounds): 200 Medications Current Medications Medications (Trade) Dose Ordered Sig/Artemio Route PRN Reason Start Time Stop Time Status Last Admin Dose Admin Acetaminophen (Tylenol) 650 mg Q4H PRN ORAL fever 11/28/17 21:45 12/28/17 21:44 11/29/17 12:22 Acetaminophen (Tylenol) 650 mg Q4H PRN ORAL Mild Pain (Pain Scale 1-3) 11/28/17 21:45 12/28/17 21:44 Acetaminophen (Tylenol) 650 mg Q4H PRN RECTAL Mild Pain (Pain Scale 1-3) 11/28/17 21:45 12/28/17 21:44 Acetaminophen (Tylenol) 650 mg Q4H PRN RECTAL fever 11/28/17 21:45 12/28/17 21:44 Amlodipine Besylate (Norvasc) 10 mg DAILY ORAL 11/29/17 09:00 12/29/17 08:59 11/29/17 09:51 Ceftriaxone Sodium 1 gm/ Dextrose 50 ml @ 100 mls/hr DAILY IVPB 11/29/17 09:00 12/06/17 08:59 11/29/17 09:51 Clonidine HCl (Catapres Tab) 0.1 mg Q6H PRN ORAL sbp>160 11/28/17 21:45 12/28/17 21:44 Dextrose (Dextrose 50%) 25 ml Q30M PRN IV Hypoglycemia 11/28/17 21:45 12/28/17 21:44 Dextrose (Dextrose 50%) 50 ml Q30M PRN IV Hypoglycemia 11/28/17 21:45 12/28/17 21:44 Heparin Sodium (Porcine) (Heparin 5000 units/ml) 5,000 units EVERY 8 HOURS SUBQ 11/28/17 22:00 12/28/17 21:59 11/29/17 05:49 Insulin Aspart (NovoLOG) BEFORE MEALS AND HS SUBQ 11/29/17 06:30 12/29/17 06:29 11/29/17 12:04 Nitroglycerin (Ntg) 0.4 mg Q5M PRN SL Prn Chest Pain 11/28/17 21:45 12/28/17 21:44 Ondansetron HCl (Zofran) 4 mg Q6H PRN IVP Nausea & Vomiting 11/28/17 21:45 12/28/17 21:44 Pantoprazole (Protonix) 40 mg DAILY ORAL 11/29/17 09:00 12/29/17 08:59 11/29/17 08:40 Sodium Chloride 1,000 ml @ 75 mls/hr [id number] IV 11/28/17 22:41 12/28/17 22:40 11/29/17 12:05 Tramadol HCl (Ultram) 25 mg DAILY ORAL 11/29/17 09:00 12/06/17 08:59 11/29/17 08:40 Tramadol HCl (Ultram) 50 mg Q6H PRN ORAL For Pain 11/28/17 21:45 12/05/17 21:44 Zinc Sulfate (Zinc Sulfate) 220 mg DAILY ORAL 11/29/17 09:00 12/29/17 08:59 11/29/17 08:41 Assessment/Plan Problem List: (1) Sepsis Assessment & Plan: patient well known to me. left foot wounds significantly healed. likely still underlying tissue loss but no active infection noted right foot s/p amputation stable. possible enteritis which is resolving possible uti? -no acute surgical intervention necessary. -IV abx -okay for diet will follow with recs. thank you ICD Codes: A41.9 - Sepsis, unspecified organism SNOMED: [id number] Status: stable Sandro Ramirez Nov 29, 2017 13:04
--- NOTE | 2017-11-29 15:39 | History & Physical ---
History and Physical History & Physicial Dictated for Int Med-Dr Albert no. [id number] Ariel Marie MD Nov 29, 2017 15:39
[2017-11-29 16:00] VITALS: BP 113/65
--- NOTE | 2017-11-29 18:00 | History and Physical Report ---
DATE OF ADMISSION: 11/28/2017 CHIEF COMPLAINT: The patient is a 52-year-old female, who presents with chief complaint of nausea and vomiting. HISTORY OF PRESENT ILLNESS: The patient has a history of osteomyelitis of the left foot. The patient is status post amputation of the left metatarsal of the left foot. The patient is a resident of [facility]. According to staff at [facility], the patient began to experience nausea and vomiting on 11/28/2017. The patient was referred to [facility] Emergency Room for evaluation. The patient is admitted for intractable nausea and vomiting. REVIEW OF SYSTEMS: CONSTITUTIONAL: The patient denies weight loss or weight gain. The patient denies fevers or chills. HEENT: The patient denies ear or throat pain. The patient denies headache. CARDIOVASCULAR: The patient denies palpitations or chest pain. CHEST: The patient denies wheeze or shortness of breath. ABDOMEN: The patient complains of nausea and vomiting as above. The patient denies diarrhea or constipation. GENITOURINARY: The patient denies dysuria or increased frequency of urination. NEUROMUSCULAR: The patient denies seizures or generalized weakness. PAST MEDICAL HISTORY: Significant for: 1. Type 2 diabetes. 2. Chronic kidney disease, stage 4. 3. Diabetic nephropathy. 4. Gastroesophageal reflux disease. 5. Osteomyelitis of the left foot as above. PAST SURGICAL HISTORY: Significant for: 1. section x3. 2. Multiple foot surgeries. CURRENT MEDICATIONS: 1. Amlodipine 10 mg one tablet p.o. daily. 2. Vitamin C 500 mg p.o. twice daily. 3. Iron sulfate 325 mg p.o. daily. 4. Folic acid 1 mg p.o. daily. 5. NovoLog sliding scale. 6. Levemir 15 units subcutaneously twice daily. 7. Loratadine 10 mg p.o. daily. 8. Zofran 4 mg p.o. q.4 h. p.r.n. 9. Protonix 40 mg p.o. daily. 10. Ultram 50 mg p.o. q.6 h. p.r.n. 11. Zinc sulfate 220 mg p.o. daily. 12. Pro-Stat 30 mL p.o. twice daily. ALLERGIES: Penicillin. SOCIAL HISTORY: The patient is single and is a resident of [facility]. The patient denies tobacco or alcohol use. PHYSICAL EXAMINATION: VITAL SIGNS: Temperature 98.1, respirations 18, pulse 100, and blood pressure 160/94. GENERAL: The patient is a well-developed and well-nourished obese female, in no apparent distress. HEENT: Eyes, pupils are equal and responsive to light and accommodation. Extraocular movements are intact. NECK: Supple without lymphadenopathy. CHEST: Lungs are clear to auscultation bilaterally without wheezes or rales. CARDIOVASCULAR: Regular rate. S1, S2 normal without murmurs, rubs, or gallops. ABDOMEN: Soft, nontender, and nondistended. Positive bowel sounds. No evidence of hepatosplenomegaly. Currently, no rebound or guarding noted. EXTREMITIES: Negative for clubbing, cyanosis, or edema. RECTAL/GENITAL: Refused. NEUROLOGIC: Cranial nerves II through XII are grossly intact without focal deficits. Motor strength is 5/5 bilaterally. Deep tendon reflexes are 2+ plantar. LABORATORY STUDIES: WBC is 13.4, hemoglobin 10.6, hematocrit 33.1, and platelets 160,000. Sodium 136, potassium 3.8, chloride 104, CO2 21, BUN 40, and creatinine 2.7. Glucose 233. ASSESSMENT: This is a 52-year-old -[place] female with: 1. Nausea with vomiting. 2. Abdominal pain. 3. Diabetes type 2. 4. Chronic kidney disease, stage 4. 5. Diabetic nephropathy. 6. History of osteomyelitis, left lower extremity. TREATMENT: 1. Diabetes type 2. The patient has been started on NovoLog sliding scale. Fingersticks will be performed q.a.c. and nightly. 2. Nausea and vomiting. A Surgery consultation has been obtained with Dr. Ramirez. Nausea seems to be resolving. 3. Chronic kidney disease, stage 4. A Nephrology consultation has been obtained with Dr. Valadez. 4. Hypertension. Continue amlodipine as above. 5. Gastroesophageal reflux disease. Continue Protonix as above. 6. Osteomyelitis of left lower extremity. The patient currently does not have infection of the left lower extremity. Ariel Marie M.D. DR: RACHEL JOB#: [id number] CC:
[2017-11-29 20:00] VITALS: BP 112/65
[2017-11-30] VITALS: BP 128/67
[2017-11-30] MEDS: NS w/KCl 20mEq 1,000 ML IV SCH ×2 (01:22→09:39)
[2017-11-30 04:00] VITALS: BP 127/70
[2017-11-30] MEDS: Heparin 5000 units/ml inj SUBQ SCH ×3 (05:33→22:00)
[2017-11-30] MEDS: NovoLOG Insulin Flexpen SUBQ SCH ×4 (06:30→20:52)
[2017-11-30 06:35] LABS: BASOPHILS % (AUTO) 0.6 % (0.0-2.0); HEMATOCRIT 26.5 % (37.0-47.0); HEMOGLOBIN 8.4 G/DL (12.0-16.0); LYMPHOCYTES % (AUTO) 14.3 % (20.0-45.0); MEAN CORPUSCULAR VOLUME 87 FL (80-99); MONOCYTES % (AUTO) 9.9 % (1.0-10.0); NEUTROPHILS % (AUTO) 75.3 % (45.0-75.0); PLATELET COUNT 139 K/UL (150-450); RED BLOOD COUNT 3.07 M/UL (4.20-5.40); RED CELL DISTRIBUTION WIDTH 13.4 % (11.6-14.8); WHITE BLOOD COUNT 8.5 K/UL (4.8-10.8)
--- NOTE | 2017-11-30 07:39 | Pulmonology Progress Note ---
Assessment/Plan Assessment/Plan ASSESSMENT sepsis probably UTI acute renal failure on chronic kidney disease diabetic nephropathy with CKD dehydration hypomagnesemia anemia hypertension diabetes mellitus type 2 PAD (with moderate to severe ischemia at rest ) obesity PLAN OF CARE tele IV fluids , decrease rate , no effect on renal parameters, dc IVF in am renal US in April 2017 with incased renal echogenicity, c/w medical renal disease empiric abx, f/up with culture blood cx prel negative monitor renal parameters, lytes, correct electrolytes as needed , Mg already corrected avoid nephrotoxic O2 prn to keep sat above 92% pulmonary toilet prn BP management with CCB and Clonidine prn BS management with SSI DVT, GI prophylaxis Arterial Duplex BLE with evidence of PAD, moderate to severe ischemia at rest started on a/PLT with ASA vascular surgery eval recommended - as per PMD discretion 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 with goal to keep hemoglobin above 7 anemia workup c/w anemia of chronic disease supportive care a/emetic prn bowel regimen wound care case discussed and evaluated by supervising physician Subjective Allergies: Coded Allergies: PENICILLINS (Verified Allergy, Severe, SWOLLEN BODY, 04/23/17) Per Daughter, patient has tolerated Amoxicillin Tolerated Ceftriaxone 04/22/17 Uncoded Allergies: Blood Transfusion (Adverse Reaction, Unknown, 06/29/17) Pt states that she develops lower extremity wounds after blood transfusions Subjective leukocytosis resolved, low grade fever at night, currently afebrile anemic Objective Last 24 Hour Vital Signs Date Time Temp Pulse Resp B/P (MAP) Pulse Ox O2 Delivery O2 Flow Rate FiO2 11/30/17 04:49 99.7 11/30/17 04:00 87 11/30/17 04:00 99.7 88 20 127/70 (89) 98 99.7 11/30/17 00:00 84 11/30/17 00:00 98.9 84 20 128/67 (87) 97 98.9 11/29/17 21:00 Room Air 11/29/17 20:00 83 11/29/17 20:00 98.9 83 20 112/65 (81) 100 98.9 11/29/17 16:00 98.7 84 16 113/65 (81) 98 98.7 11/29/17 16:00 87 11/29/17 12:52 99.6 11/29/17 12:22 100.3 11/29/17 12:00 93 11/29/17 12:00 100.3 98 16 114/68 (83) 98 100.3 11/29/17 09:51 96 123/74 11/29/17 09:10 98.8 11/29/17 09:00 Room Air 11/29/17 08:40 98.8 11/29/17 08:00 98.8 96 20 123/74 (90) 98 98.8 11/29/17 08:00 95 Intake and Output 11/29/17 11/30/17 19:00 07:00 Intake Total 1040 ml 1210 ml Balance 1040 ml 1210 ml Intake Oral 240 ml 240 ml IV Total 800 ml 970 ml # Voids 2 3 Objective General Appearance: no apparent distress, awake, alert, obese AA female in NAD HEENT: normocephalic, atraumatic, anicteric Neck: supple Respiratory/Chest: lungs clear, no respiratory distress Cardiovascular/Chest: normal rate - SR on tele Abdomen: normal bowel sounds, non tender, soft - obese Extremities: no edema, R toe amputation Skin Exam: warm/dry, R toes amputation, wound , L heel Neurologic: abnormal gait, alert, oriented x 3 Musculoskeletal: atrophy - BLE Microbiology Date/Time Source Procedure Growth Status 11/28/17 17:55 Blood Blood Culture - Preliminary NO GROWTH AFTER 24 HOURS Resulted 11/28/17 17:55 Blood Blood Culture - Preliminary NO GROWTH AFTER 24 HOURS Resulted 11/28/17 17:55 Nasal Nares Influenza Types A,B Antigen (DAFNE) - Final Complete Laboratory Tests 11/30/17 05:50: White Blood Count 8.5, Red Blood Count 3.07L, Hemoglobin 8.4L, Hematocrit 26.5L , Mean Corpuscular Volume 87, Mean Corpuscular Hemoglobin 27.4, Mean Corpuscular Hemoglobin Concent 31.7L, Red Cell Distribution Width 13.4, Platelet Count 139L, Mean Platelet Volume 8.9, Neutrophils (%) (Auto) 75.3H, Lymphocytes (%) (Auto) 14.3L, Monocytes (%) (Auto) 9.9, Eosinophils (%) (Auto) 0.0, Basophils (%) (Auto) 0.6, Sodium Level [Pending], Potassium Level [Pending] , Chloride Level [Pending], Carbon Dioxide Level [Pending], Blood Urea Nitrogen [Pending], Creatinine [Pending], Estimat Glomerular Filtration Rate [Pending], Glucose Level [Pending], Calcium Level [Pending] Current Medications Medications (Trade) Dose Ordered Sig/Artemio Route PRN Reason Start Time Stop Time Status Last Admin Dose Admin Acetaminophen (Tylenol) 650 mg Q4H PRN ORAL fever 11/28/17 21:45 12/28/17 21:44 11/29/17 12:22 Acetaminophen (Tylenol) 650 mg Q4H PRN ORAL Mild Pain (Pain Scale 1-3) 11/28/17 21:45 12/28/17 21:44 11/30/17 04:19 Acetaminophen (Tylenol) 650 mg Q4H PRN RECTAL Mild Pain (Pain Scale 1-3) 11/28/17 21:45 12/28/17 21:44 Acetaminophen (Tylenol) 650 mg Q4H PRN RECTAL fever 11/28/17 21:45 12/28/17 21:44 Amlodipine Besylate (Norvasc) 10 mg DAILY ORAL 11/29/17 09:00 12/29/17 08:59 11/29/17 09:51 Ceftriaxone Sodium 1 gm/ Dextrose 50 ml @ 100 mls/hr DAILY IVPB 11/29/17 09:00 12/06/17 08:59 11/29/17 09:51 Clonidine HCl (Catapres Tab) 0.1 mg Q6H PRN ORAL sbp>160 11/28/17 21:45 12/28/17 21:44 Dextrose (Dextrose 50%) 25 ml Q30M PRN IV Hypoglycemia 11/28/17 21:45 12/28/17 21:44 Dextrose (Dextrose 50%) 50 ml Q30M PRN IV Hypoglycemia 11/28/17 21:45 12/28/17 21:44 Heparin Sodium (Porcine) (Heparin 5000 units/ml) 5,000 units EVERY 8 HOURS SUBQ 11/28/17 22:00 12/28/17 21:59 11/30/17 05:33 Insulin Aspart (NovoLOG) BEFORE MEALS AND HS SUBQ 11/29/17 06:30 12/29/17 06:29 11/29/17 20:32 Nitroglycerin (Ntg) 0.4 mg Q5M PRN SL Prn Chest Pain 11/28/17 21:45 12/28/17 21:44 Ondansetron HCl (Zofran) 4 mg Q6H PRN IVP Nausea & Vomiting 11/28/17 21:45 12/28/17 21:44 Pantoprazole (Protonix) 40 mg DAILY ORAL 11/29/17 09:00 12/29/17 08:59 11/29/17 08:40 Sodium Chloride 1,000 ml @ 75 mls/hr [id number] IV 11/28/17 22:41 12/28/17 22:40 11/30/17 01:22 Tramadol HCl (Ultram) 25 mg DAILY ORAL 11/29/17 09:00 12/06/17 08:59 11/29/17 08:40 Tramadol HCl (Ultram) 50 mg Q6H PRN ORAL For Pain 11/28/17 21:45 12/05/17 21:44 Zinc Sulfate (Zinc Sulfate) 220 mg DAILY ORAL 11/29/17 09:00 12/29/17 08:59 11/29/17 08:41 Sarah Ring NP Nov 30, 2017 07:39
[2017-11-30 07:40] LABS: ANION GAP 10 mmol/L (5-15); BLOOD UREA NITROGEN 41 mg/dL (7-18); CALCIUM 8.7 MG/DL (8.5-10.1); CARBON DIOXIDE 20 MMOL/L (21-32); CHLORIDE 107 MMOL/L (98-107); CREATININE 2.6 MG/DL (0.55-1.30); POTASSIUM 4.1 MMOL/L (3.5-5.1); SODIUM 137 MMOL/L (136-145)
[2017-11-30 08:00] VITALS: BP 122/69
[2017-11-30] MEDS: Aspirin Baby 81mg ORAL SCH (09:06)
[2017-11-30] MEDS: Zinc Sulfate 220mg cap ORAL SCH (09:06)
[2017-11-30] MEDS: traMADol 50mg tab ORAL SCH (09:07)
[2017-11-30] MEDS: cefTRIAXone 1 GM in D5W 50 ML IVPB SCH (09:07)
--- NOTE | 2017-11-30 11:16 | General Surgery Progress Note ---
General Surgery-Progress Note Subjective Additional Comments no acute events. leukocytosis resolved. improving. Objective Last 24 Hour Vital Signs Date Time Temp Pulse Resp B/P (MAP) Pulse Ox O2 Delivery O2 Flow Rate FiO2 11/30/17 09:06 78 122/69 11/30/17 09:00 Room Air 11/30/17 08:00 97.9 78 19 122/69 (86) 98 97.9 11/30/17 08:00 80 11/30/17 04:49 99.7 11/30/17 04:00 87 11/30/17 04:00 99.7 88 20 127/70 (89) 98 99.7 11/30/17 00:00 84 11/30/17 00:00 98.9 84 20 128/67 (87) 97 98.9 11/29/17 21:00 Room Air 11/29/17 20:00 83 11/29/17 20:00 98.9 83 20 112/65 (81) 100 98.9 11/29/17 16:00 98.7 84 16 113/65 (81) 98 98.7 11/29/17 16:00 87 11/29/17 12:52 99.6 11/29/17 12:22 100.3 11/29/17 12:00 93 11/29/17 12:00 100.3 98 16 114/68 (83) 98 100.3 I&O Intake and Output 11/29/17 11/30/17 19:00 07:00 Intake Total 1040 ml 1210 ml Balance 1040 ml 1210 ml Intake Oral 240 ml 240 ml IV Total 800 ml 970 ml # Voids 2 3 Dressing: saturated, other Wound: clean, other Drains: other Cardiovascular: RSR Respiratory: clear Abdomen: soft, flat, non-tender, present bowel sounds Extremities: other Laboratory Tests Test 11/30/17 05:50 White Blood Count 8.5 K/UL (4.8-10.8) Red Blood Count 3.07 M/UL (4.20-5.40) L Hemoglobin 8.4 G/DL (12.0-16.0) L Hematocrit 26.5 % (37.0-47.0) L Mean Corpuscular Volume 87 FL (80-99) Mean Corpuscular Hemoglobin 27.4 PG (27.0-31.0) Mean Corpuscular Hemoglobin Concent 31.7 G/DL (32.0-36.0) L Red Cell Distribution Width 13.4 % (11.6-14.8) Platelet Count 139 K/UL (150-450) L Mean Platelet Volume 8.9 FL (6.5-10.1) Neutrophils (%) (Auto) 75.3 % (45.0-75.0) H Lymphocytes (%) (Auto) 14.3 % (20.0-45.0) L Monocytes (%) (Auto) 9.9 % (1.0-10.0) Eosinophils (%) (Auto) 0.0 % (0.0-3.0) Basophils (%) (Auto) 0.6 % (0.0-2.0) Sodium Level 137 MMOL/L (136-145) Potassium Level 4.1 MMOL/L (3.5-5.1) Chloride Level 107 MMOL/L (98-107) Carbon Dioxide Level 20 MMOL/L (21-32) L Anion Gap 10 mmol/L (5-15) Blood Urea Nitrogen 41 mg/dL (7-18) H Creatinine 2.6 MG/DL (0.55-1.30) H Estimat Glomerular Filtration Rate 23.3 mL/min (>60) Glucose Level 110 MG/DL (74-106) #H Calcium Level 8.7 MG/DL (8.5-10.1) Plan Problems: (1) Sepsis Assessment & Plan: patient well known to me. left foot wounds significantly healed. likely still underlying tissue loss but no active infection noted right foot s/p amputation stable. possible enteritis which is resolving possible uti? Duplex studies noted. known peripheral vasculopathy. prior MRI with substantial tissue/bone disease. prior amputation recommended. appreciate vascular input -no acute surgical intervention necessary. -IV abx -okay for diet will follow with recs. thank you Sandro Ramirez Nov 30, 2017 11:16
[2017-11-30 12:00] VITALS: BP 117/66
--- NOTE | 2017-11-30 15:30 | Internal Med Progress Note ---
Subjective Date of Service: Nov 30, 2017 Physician Name Ariel Marie Attending Physician Tobin Albert MD Current Medications Medications (Trade) Dose Ordered Sig/Artemio Route PRN Reason Start Time Stop Time Status Last Admin Dose Admin Acetaminophen (Tylenol) 650 mg Q4H PRN ORAL fever 11/28/17 21:45 12/28/17 21:44 11/29/17 12:22 Acetaminophen (Tylenol) 650 mg Q4H PRN ORAL Mild Pain (Pain Scale 1-3) 11/28/17 21:45 12/28/17 21:44 11/30/17 04:19 Acetaminophen (Tylenol) 650 mg Q4H PRN RECTAL Mild Pain (Pain Scale 1-3) 11/28/17 21:45 12/28/17 21:44 Acetaminophen (Tylenol) 650 mg Q4H PRN RECTAL fever 11/28/17 21:45 12/28/17 21:44 Amlodipine Besylate (Norvasc) 10 mg DAILY ORAL 11/29/17 09:00 12/29/17 08:59 11/30/17 09:06 Aspirin (ASA) 81 mg DAILY ORAL 11/30/17 09:00 12/30/17 08:59 11/30/17 09:06 Ceftriaxone Sodium 1 gm/ Dextrose 50 ml @ 100 mls/hr DAILY IVPB 11/29/17 09:00 12/06/17 08:59 11/30/17 09:07 Clonidine HCl (Catapres Tab) 0.1 mg Q6H PRN ORAL sbp>160 11/28/17 21:45 12/28/17 21:44 Dextrose (Dextrose 50%) 25 ml Q30M PRN IV Hypoglycemia 11/28/17 21:45 12/28/17 21:44 Dextrose (Dextrose 50%) 50 ml Q30M PRN IV Hypoglycemia 11/28/17 21:45 12/28/17 21:44 Heparin Sodium (Porcine) (Heparin 5000 units/ml) 5,000 units EVERY 8 HOURS SUBQ 11/28/17 22:00 12/28/17 21:59 11/30/17 05:33 Insulin Aspart (NovoLOG) BEFORE MEALS AND HS SUBQ 11/29/17 06:30 12/29/17 06:29 11/29/17 20:32 Nitroglycerin (Ntg) 0.4 mg Q5M PRN SL Prn Chest Pain 11/28/17 21:45 12/28/17 21:44 Ondansetron HCl (Zofran) 4 mg Q6H PRN IVP Nausea & Vomiting 11/28/17 21:45 12/28/17 21:44 Pantoprazole (Protonix) 40 mg DAILY ORAL 11/29/17 09:00 12/29/17 08:59 11/30/17 09:06 Sodium Chloride 1,000 ml @ 50 mls/hr Q20H IV 11/30/17 09:30 12/30/17 09:29 11/30/17 09:39 Tramadol HCl (Ultram) 25 mg DAILY ORAL 11/29/17 09:00 12/06/17 08:59 11/30/17 09:07 Tramadol HCl (Ultram) 50 mg Q6H PRN ORAL For Pain 11/28/17 21:45 12/05/17 21:44 Zinc Sulfate (Zinc Sulfate) 220 mg DAILY ORAL 11/29/17 09:00 12/29/17 08:59 11/30/17 09:06 Allergies: Coded Allergies: PENICILLINS (Verified Allergy, Severe, SWOLLEN BODY, 04/23/17) Per Daughter, patient has tolerated Amoxicillin Tolerated Ceftriaxone 04/22/17 Uncoded Allergies: Blood Transfusion (Adverse Reaction, Unknown, 06/29/17) Pt states that she develops lower extremity wounds after blood transfusions ROS Limited/Unobtainable: No Constitutional: Reports: no symptoms HEENT: Reports: no symptoms Cardiovascular: Reports: no symptoms Respiratory: Reports: no symptoms Gastrointestinal/Abdominal: Reports: no symptoms Genitourinary: Reports: no symptoms Neurologic/Psychiatric: Reports: no symptoms Subjective 52 YO F admitted with nausea and vomiting. Cover for Int leonidas-Dr Albert Objective Last Vital Signs Date Time Temp Pulse Resp B/P (MAP) Pulse Ox O2 Delivery O2 Flow Rate FiO2 11/30/17 12:00 98.0 80 20 117/66 (83) 100 98.0 11/30/17 09:00 Room Air Laboratory Tests Test 11/30/17 05:50 White Blood Count 8.5 K/UL (4.8-10.8) Red Blood Count 3.07 M/UL (4.20-5.40) L Hemoglobin 8.4 G/DL (12.0-16.0) L Hematocrit 26.5 % (37.0-47.0) L Mean Corpuscular Volume 87 FL (80-99) Mean Corpuscular Hemoglobin 27.4 PG (27.0-31.0) Mean Corpuscular Hemoglobin Concent 31.7 G/DL (32.0-36.0) L Red Cell Distribution Width 13.4 % (11.6-14.8) Platelet Count 139 K/UL (150-450) L Mean Platelet Volume 8.9 FL (6.5-10.1) Neutrophils (%) (Auto) 75.3 % (45.0-75.0) H Lymphocytes (%) (Auto) 14.3 % (20.0-45.0) L Monocytes (%) (Auto) 9.9 % (1.0-10.0) Eosinophils (%) (Auto) 0.0 % (0.0-3.0) Basophils (%) (Auto) 0.6 % (0.0-2.0) Sodium Level 137 MMOL/L (136-145) Potassium Level 4.1 MMOL/L (3.5-5.1) Chloride Level 107 MMOL/L (98-107) Carbon Dioxide Level 20 MMOL/L (21-32) L Anion Gap 10 mmol/L (5-15) Blood Urea Nitrogen 41 mg/dL (7-18) H Creatinine 2.6 MG/DL (0.55-1.30) H Estimat Glomerular Filtration Rate 23.3 mL/min (>60) Glucose Level 110 MG/DL (74-106) #H Calcium Level 8.7 MG/DL (8.5-10.1) Microbiology Date/Time Source Procedure Growth Status 11/28/17 17:55 Blood Blood Culture - Preliminary NO GROWTH AFTER 24 HOURS Resulted 11/28/17 17:55 Blood Blood Culture - Preliminary NO GROWTH AFTER 24 HOURS Resulted 11/28/17 17:55 Nasal Nares Influenza Types A,B Antigen (DAFNE) - Final Complete 11/28/17 20:35 Urine,Clean Catch Urine Culture - Preliminary NO GROWTH Resulted 11/28/17 21:22 Rectum VRE Culture - Final Enterococcus Faecalis - Vre Resulted 11/28/17 21:22 Rectum Pending Resulted Intake and Output 11/29/17 11/30/17 19:00 07:00 Intake Total 1040 ml 1210 ml Balance 1040 ml 1210 ml Intake Oral 240 ml 240 ml IV Total 800 ml 970 ml # Voids 2 3 Objective PHYSICAL EXAMINATION: GENERAL: The patient is a well-developed and well-nourished obese female, in no apparent distress. HEENT: Eyes, pupils are equal and responsive to light and accommodation. Extraocular movements are intact. NECK: Supple without lymphadenopathy. CHEST: Lungs are clear to auscultation bilaterally without wheezes or rales. CARDIOVASCULAR: Regular rate. S1, S2 normal without murmurs, rubs, or gallops. ABDOMEN: Soft, nontender, and nondistended. Positive bowel sounds. No evidence of hepatosplenomegaly. Currently, no rebound or guarding noted. EXTREMITIES: Negative for clubbing, cyanosis, or edema. RECTAL/GENITAL: Refused. NEUROLOGIC: Cranial nerves II through XII are grossly intact without focal deficits. Motor strength is 5/5 bilaterally. Deep tendon reflexes are 2+ plantar. Assessment/Plan Problem List: (1) Nausea & vomiting Assessment & Plan: Resolved (2) Diabetes mellitus (3) Diabetic foot ulcer (4) CKD (chronic kidney disease) Assessment & Plan: await nephrology note. (5) Osteomyelitis Assessment & Plan: Left foot. See surgery note. (6) HTN (hypertension) (7) Peripheral vascular disease Assessment & Plan: await vascular surgery consult. Status: progressing Ariel Marie MD Nov 30, 2017 15:30
[2017-11-30 16:00] VITALS: BP 120/73
[2017-11-30 20:00] VITALS: BP 128/75
--- NOTE | 2017-11-30 22:19 | Diagnostic Imaging Report ---
APPROVED REPORT Comments BILATERAL LEGS PAIN. RIGHT LEG: Common femoral artery waveform analysis is within normal limits at rest. Color flow duplex sonography reveals partially occlusion in the superficial femoral. Imaging also reveals another partially occlusion in the distal popliteal artery.The tibioperoneal trunk was not well visualized. The dorsalis pedis artery was not visualized due to bandage. The distal posterior and anterior tibial arteries are occluded. Doppler waveform analysis is compatible with moderate to severe ischemia at rest. LEFT LEG: Common femoral artery waveform analysis is within normal limits at rest. Color flow duplex sonography reveals partially occlusion in the superficial femoral. Imaging also reveals another occlusion in the distal popliteal artery.The tibioperoneal trunk was not well visualized.The posterior tibial and proneal arteries are occluded. tibial artery partially occluded. Doppler waveform analysis is monophasic. The dorsalis pedis artery was partially occluded. However, the distal posterior tibial artery is patent. Doppler waveform analysis is compatible with moderate to severe ischemia at rest.
[2017-12-01] VITALS: BP 132/75
[2017-12-01 04:00] VITALS: BP 132/69
[2017-12-01] MEDS: NS w/KCl 20mEq 1,000 ML IV SCH (05:30)
[2017-12-01] MEDS: Heparin 5000 units/ml inj SUBQ SCH ×3 (06:00→21:32)
[2017-12-01] MEDS: NovoLOG Insulin Flexpen SUBQ SCH ×4 (06:00→22:05)
[2017-12-01 07:39] LABS: BASOPHILS % (AUTO) 0.8 % (0.0-2.0); EOSINOPHILS % (AUTO) 1.1 % (0.0-3.0); HEMATOCRIT 26.4 % (37.0-47.0); HEMOGLOBIN 8.3 G/DL (12.0-16.0); LYMPHOCYTES % (AUTO) 25.4 % (20.0-45.0); MEAN CORPUSCULAR VOLUME 86 FL (80-99); MONOCYTES % (AUTO) 10.5 % (1.0-10.0); NEUTROPHILS % (AUTO) 62.1 % (45.0-75.0); PLATELET COUNT 143 K/UL (150-450); RED BLOOD COUNT 3.06 M/UL (4.20-5.40); RED CELL DISTRIBUTION WIDTH 13.6 % (11.6-14.8); WHITE BLOOD COUNT 5.8 K/UL (4.8-10.8)
[2017-12-01 08:00] VITALS: BP 138/78
[2017-12-01 08:03] LABS: ANION GAP 10 mmol/L (5-15); BLOOD UREA NITROGEN 34 mg/dL (7-18); CALCIUM 8.3 MG/DL (8.5-10.1); CARBON DIOXIDE 21 MMOL/L (21-32); CHLORIDE 107 MMOL/L (98-107); CHOLESTEROL 170 MG/DL (< 200); CREATININE 2.4 MG/DL (0.55-1.30); HDL CHOLESTEROL 36 MG/DL (40-60); SODIUM 138 MMOL/L (136-145); TRIGLYCERIDES 133 MG/DL (30-150)
[2017-12-01] MEDS: Zinc Sulfate 220mg cap ORAL SCH (08:52)
[2017-12-01] MEDS: cefTRIAXone 1 GM in D5W 50 ML IVPB SCH (08:52)
[2017-12-01] MEDS: Aspirin Baby 81mg ORAL SCH (08:53)
[2017-12-01] MEDS: traMADol 50mg tab ORAL SCH (08:54)
[2017-12-01 12:00] VITALS: BP 128/74
--- NOTE | 2017-12-01 12:02 | General Surgery Progress Note ---
General Surgery-Progress Note Subjective Additional Comments no acute events. doing well. comfortable. no n/v/f/c. Objective Last 24 Hour Vital Signs Date Time Temp Pulse Resp B/P (MAP) Pulse Ox O2 Delivery O2 Flow Rate FiO2 12/01/17 09:00 Room Air 12/01/17 08:53 75 138/78 12/01/17 08:00 98.5 75 18 138/78 (98) 98 98.5 12/01/17 04:00 78 12/01/17 04:00 98.0 98 18 132/69 (90) 97 98.0 12/01/17 00:00 85 12/01/17 00:00 98.2 80 18 132/75 (94) 96 98.2 11/30/17 21:00 Room Air 11/30/17 20:00 80 11/30/17 20:00 98.4 83 19 128/75 (92) 98 98.4 11/30/17 16:00 97.7 81 20 120/73 (89) 99 97.7 11/30/17 16:00 78 I&O Intake and Output 11/30/17 12/01/17 19:00 07:00 Intake Total 640 ml 480 ml Balance 640 ml 480 ml Intake Oral 640 ml 480 ml # Voids 4 Dressing: saturated Wound: clean Drains: none Cardiovascular: RSR Respiratory: clear Abdomen: soft, flat, non-tender, present bowel sounds Extremities: other Laboratory Tests Test 12/01/17 06:45 White Blood Count 5.8 K/UL (4.8-10.8) Red Blood Count 3.06 M/UL (4.20-5.40) L Hemoglobin 8.3 G/DL (12.0-16.0) L Hematocrit 26.4 % (37.0-47.0) L Mean Corpuscular Volume 86 FL (80-99) Mean Corpuscular Hemoglobin 27.2 PG (27.0-31.0) Mean Corpuscular Hemoglobin Concent 31.5 G/DL (32.0-36.0) L Red Cell Distribution Width 13.6 % (11.6-14.8) Platelet Count 143 K/UL (150-450) L Mean Platelet Volume 8.9 FL (6.5-10.1) Neutrophils (%) (Auto) 62.1 % (45.0-75.0) Lymphocytes (%) (Auto) 25.4 % (20.0-45.0) Monocytes (%) (Auto) 10.5 % (1.0-10.0) H Eosinophils (%) (Auto) 1.1 % (0.0-3.0) Basophils (%) (Auto) 0.8 % (0.0-2.0) Sodium Level 138 MMOL/L (136-145) Potassium Level 4.0 MMOL/L (3.5-5.1) Chloride Level 107 MMOL/L (98-107) Carbon Dioxide Level 21 MMOL/L (21-32) Anion Gap 10 mmol/L (5-15) Blood Urea Nitrogen 34 mg/dL (7-18) H Creatinine 2.4 MG/DL (0.55-1.30) H Estimat Glomerular Filtration Rate 25.6 mL/min (>60) Glucose Level 149 MG/DL (74-106) H Calcium Level 8.3 MG/DL (8.5-10.1) L Triglycerides Level 133 MG/DL (30-150) Cholesterol Level 170 MG/DL (< 200) LDL Cholesterol 103 mg/dL (<100) H HDL Cholesterol 36 MG/DL (40-60) L Cholesterol/HDL Ratio 4.7 (3.3-4.4) H Plan Problems: (1) Sepsis Assessment & Plan: patient well known to me. left foot wounds significantly healed. likely still underlying tissue loss but no active infection noted right foot s/p amputation stable. possible enteritis which is resolving possible uti? Duplex studies noted. known peripheral vasculopathy. prior MRI with substantial tissue/bone disease. prior amputation recommended. appreciate vascular input leukocytosis improving -no acute surgical intervention necessary. -IV abx -okay for diet will follow with recs. thank you Sandro Ramirez Dec 01, 2017 12:02
--- NOTE | 2017-12-01 12:25 | Pulmonology Progress Note ---
Assessment/Plan Problems: (1) Sepsis (2) Diabetic foot ulcer (3) Diabetes mellitus (4) Diabetic nephropathy (5) Peripheral vascular disease (6) HTN (hypertension) Assessment/Plan improving check cultures continue abx wound care ID evaluation check electrolytes Subjective ROS Limited/Unobtainable: No Constitutional: Reports: no symptoms HEENT: Repors: no symptoms Respiratory: Reports: no symptoms Allergies: Coded Allergies: PENICILLINS (Verified Allergy, Severe, SWOLLEN BODY, 04/23/17) Per Daughter, patient has tolerated Amoxicillin Tolerated Ceftriaxone 04/22/17 Uncoded Allergies: Blood Transfusion (Adverse Reaction, Unknown, 06/29/17) Pt states that she develops lower extremity wounds after blood transfusions Objective Last 24 Hour Vital Signs Date Time Temp Pulse Resp B/P (MAP) Pulse Ox O2 Delivery O2 Flow Rate FiO2 12/01/17 09:00 Room Air 12/01/17 08:53 75 138/78 12/01/17 08:00 98.5 75 18 138/78 (98) 98 98.5 12/01/17 04:00 78 12/01/17 04:00 98.0 98 18 132/69 (90) 97 98.0 12/01/17 00:00 85 12/01/17 00:00 98.2 80 18 132/75 (94) 96 98.2 11/30/17 21:00 Room Air 11/30/17 20:00 80 11/30/17 20:00 98.4 83 19 128/75 (92) 98 98.4 11/30/17 16:00 97.7 81 20 120/73 (89) 99 97.7 11/30/17 16:00 78 Intake and Output 11/30/17 12/01/17 19:00 07:00 Intake Total 640 ml 480 ml Balance 640 ml 480 ml Intake Oral 640 ml 480 ml # Voids 4 General Appearance: WD/WN HEENT: normocephalic Respiratory/Chest: chest wall non-tender, lungs clear Breasts: no masses Cardiovascular: normal peripheral pulses Abdomen: normal bowel sounds, no organomegaly Genitourinary: normal external genitalia Extremities: no cyanosis Neurologic/Psychiatric: lapping machine tender II-XII grossly normal Lymphatic: no neck adenopathy Microbiology Date/Time Source Procedure Growth Status 11/28/17 17:55 Blood Blood Culture - Preliminary NO GROWTH AFTER 48 HOURS Resulted 11/28/17 17:55 Blood Blood Culture - Preliminary NO GROWTH AFTER 48 HOURS Resulted 11/28/17 21:22 Nasal Nares MRSA Culture - Final Staphylococcus Aureus - Mrsa Complete 11/28/17 17:55 Nasal Nares Influenza Types A,B Antigen (DAFNE) - Final Complete 11/28/17 20:35 Urine,Clean Catch Urine Culture - Preliminary NO GROWTH AFTER 24 HOURS Resulted 11/28/17 21:22 Rectum VRE Culture - Final Enterococcus Faecalis - Vre Resulted 11/28/17 21:22 Rectum - Preliminary Resulted Laboratory Tests 12/01/17 06:45: White Blood Count 5.8, Red Blood Count 3.06L, Hemoglobin 8.3L, Hematocrit 26.4L , Mean Corpuscular Volume 86, Mean Corpuscular Hemoglobin 27.2, Mean Corpuscular Hemoglobin Concent 31.5L, Red Cell Distribution Width 13.6, Platelet Count 143L, Mean Platelet Volume 8.9, Neutrophils (%) (Auto) 62.1, Lymphocytes (%) (Auto) 25.4, Monocytes (%) (Auto) 10.5H, Eosinophils (%) (Auto) 1.1, Basophils (%) (Auto) 0.8, Sodium Level 138, Potassium Level 4.0, Chloride Level 107, Carbon Dioxide Level 21, Anion Gap 10, Blood Urea Nitrogen 34H, Creatinine 2.4H, Estimat Glomerular Filtration Rate 25.6, Glucose Level 149H, Calcium Level 8.3L, Triglycerides Level 133, Cholesterol Level 170, LDL Cholesterol 103H, HDL Cholesterol 36L, Cholesterol/HDL Ratio 4.7H Current Medications Medications (Trade) Dose Ordered Sig/Artemio Route PRN Reason Start Time Stop Time Status Last Admin Dose Admin Acetaminophen (Tylenol) 650 mg Q4H PRN ORAL fever 11/28/17 21:45 12/28/17 21:44 11/29/17 12:22 Acetaminophen (Tylenol) 650 mg Q4H PRN ORAL Mild Pain (Pain Scale 1-3) 11/28/17 21:45 12/28/17 21:44 11/30/17 04:19 Acetaminophen (Tylenol) 650 mg Q4H PRN RECTAL Mild Pain (Pain Scale 1-3) 11/28/17 21:45 12/28/17 21:44 Acetaminophen (Tylenol) 650 mg Q4H PRN RECTAL fever 11/28/17 21:45 12/28/17 21:44 Amlodipine Besylate (Norvasc) 10 mg DAILY ORAL 11/29/17 09:00 12/29/17 08:59 12/01/17 08:53 Aspirin (ASA) 81 mg DAILY ORAL 11/30/17 09:00 12/30/17 08:59 12/01/17 08:53 Ceftriaxone Sodium 1 gm/ Dextrose 50 ml @ 100 mls/hr DAILY IVPB 11/29/17 09:00 12/06/17 08:59 12/01/17 08:52 Clonidine HCl (Catapres Tab) 0.1 mg Q6H PRN ORAL sbp>160 11/28/17 21:45 12/28/17 21:44 Dextrose (Dextrose 50%) 25 ml Q30M PRN IV Hypoglycemia 11/28/17 21:45 12/28/17 21:44 Dextrose (Dextrose 50%) 50 ml Q30M PRN IV Hypoglycemia 11/28/17 21:45 12/28/17 21:44 Heparin Sodium (Porcine) (Heparin 5000 units/ml) 5,000 units EVERY 8 HOURS SUBQ 11/28/17 22:00 12/28/17 21:59 11/30/17 05:33 Insulin Aspart (NovoLOG) BEFORE MEALS AND HS SUBQ 11/29/17 06:30 12/29/17 06:29 11/30/17 20:52 Nitroglycerin (Ntg) 0.4 mg Q5M PRN SL Prn Chest Pain 11/28/17 21:45 12/28/17 21:44 Ondansetron HCl (Zofran) 4 mg Q6H PRN IVP Nausea & Vomiting 11/28/17 21:45 12/28/17 21:44 Pantoprazole (Protonix) 40 mg DAILY ORAL 11/29/17 09:00 12/29/17 08:59 12/01/17 08:53 Sodium Chloride 1,000 ml @ 50 mls/hr Q20H IV 11/30/17 09:30 12/30/17 09:29 11/30/17 09:39 Tramadol HCl (Ultram) 25 mg DAILY ORAL 11/29/17 09:00 12/06/17 08:59 12/01/17 08:54 Tramadol HCl (Ultram) 50 mg Q6H PRN ORAL For Pain 11/28/17 21:45 12/05/17 21:44 Zinc Sulfate (Zinc Sulfate) 220 mg DAILY ORAL 11/29/17 09:00 12/29/17 08:59 12/01/17 08:52 Ruby Richmond MD Dec 01, 2017 12:25
--- NOTE | 2017-12-01 12:26 | Consultation ---
History of Present Illness General Date patient seen: Nov 30, 2017 Chief Complaint: Nausea, Vomiting, and Diarrhea Referring physician: dr Albert Reason for Consultation: abd pain/n/v/d Present Illness HPI 52-year-old female, who presents with chief complaint of nausea and vomiting. the pt pw depressed mood. anhedonia and low energy. no si/hi no psychotic sxs Allergies: Coded Allergies: PENICILLINS (Verified Allergy, Severe, SWOLLEN BODY, 04/23/17) Per Daughter, patient has tolerated Amoxicillin Tolerated Ceftriaxone 04/22/17 Uncoded Allergies: Blood Transfusion (Adverse Reaction, Unknown, 06/29/17) Pt states that she develops lower extremity wounds after blood transfusions Medication History Scheduled Amlodipine Besylate* (Amlodipine Besylate*), 10 MG ORAL DAILY, (Reported) Ascorbic Acid* (Ascorbic Acid*), 500 MG ORAL TWICE A DAY, (Reported) Ferrous Sulfate* (Ferrous Sulfate*), 325 MG ORAL DAILY, (Reported) Folic Acid* (Folic Acid*), 1 MG ORAL DAILY, (Reported) Insulin Aspart* (Novolog*), 6 UNITS SUBQ THREE TIMES A DAY, (Reported) Insulin Detemir (Levemir Flexpen), 15 UNITS SUBQ Q12HR Zinc Sulfate (Zinc Sulfate), 220 MG ORAL DAILY, (Reported) [PROSTAT liq], 30 ML PO BID, (Reported) Scheduled PRN Insulin Aspart* (Novolog*), 0 SUBQ BEDTIME PRN for PER SLIDING SCALE, ( Reported) Ondansetron* (Zofran*), 4 MG ORAL Q6H PRN for Nausea & Vomiting, (Reported) Pantoprazole* (Pantoprazole*), 40 MG ORAL DAILY PRN for GIT PPX, (Reported) Tramadol Hcl* (Ultram*), 50 MG ORAL Q6H PRN for For Pain, (Reported) Tramadol Hcl* (Ultram*), 25 MG ORAL 30-45 minutes PRN for BEFORE WOUND CLEANING, (Reported) Miscellaneous Medications Loratadine (Loratadine), 10 MG PO, (Reported) Patient History Limited by: medical condition History Provided By: Patient Healthcare decision maker Resuscitation status Full Code Advanced Directive on File Past Medical/Surgical History Past Medical/Surgical History: (1) Dehydration (2) Sepsis (3) Diabetes mellitus (4) Diabetic nephropathy (5) Osteomyelitis (6) Anemia in chronic kidney disease (7) CKD (chronic kidney disease) (8) Leg ulcer, left (9) Bacteremia (10) Fungemia (11) Diabetic foot ulcer (12) HTN (hypertension) (13) Nausea & vomiting (14) Peripheral vascular disease Review of Systems Psychiatric: Reports: prior hx, anxiety, depressed feelings Physical Exam General Appearance: no apparent distress, alert Neurologic: oriented x 3, responsive, depressed affect Last 24 Hour Vital Signs Date Time Temp Pulse Resp B/P (MAP) Pulse Ox O2 Delivery O2 Flow Rate FiO2 12/01/17 09:00 Room Air 12/01/17 08:53 75 138/78 12/01/17 08:00 98.5 75 18 138/78 (98) 98 98.5 12/01/17 04:00 78 12/01/17 04:00 98.0 98 18 132/69 (90) 97 98.0 12/01/17 00:00 85 12/01/17 00:00 98.2 80 18 132/75 (94) 96 98.2 11/30/17 21:00 Room Air 11/30/17 20:00 80 11/30/17 20:00 98.4 83 19 128/75 (92) 98 98.4 11/30/17 16:00 97.7 81 20 120/73 (89) 99 97.7 11/30/17 16:00 78 Intake and Output 11/30/17 12/01/17 19:00 07:00 Intake Total 640 ml 480 ml Balance 640 ml 480 ml Intake Oral 640 ml 480 ml # Voids 4 Laboratory Tests Test 12/01/17 06:45 White Blood Count 5.8 K/UL (4.8-10.8) Red Blood Count 3.06 M/UL (4.20-5.40) L Hemoglobin 8.3 G/DL (12.0-16.0) L Hematocrit 26.4 % (37.0-47.0) L Mean Corpuscular Volume 86 FL (80-99) Mean Corpuscular Hemoglobin 27.2 PG (27.0-31.0) Mean Corpuscular Hemoglobin Concent 31.5 G/DL (32.0-36.0) L Red Cell Distribution Width 13.6 % (11.6-14.8) Platelet Count 143 K/UL (150-450) L Mean Platelet Volume 8.9 FL (6.5-10.1) Neutrophils (%) (Auto) 62.1 % (45.0-75.0) Lymphocytes (%) (Auto) 25.4 % (20.0-45.0) Monocytes (%) (Auto) 10.5 % (1.0-10.0) H Eosinophils (%) (Auto) 1.1 % (0.0-3.0) Basophils (%) (Auto) 0.8 % (0.0-2.0) Sodium Level 138 MMOL/L (136-145) Potassium Level 4.0 MMOL/L (3.5-5.1) Chloride Level 107 MMOL/L (98-107) Carbon Dioxide Level 21 MMOL/L (21-32) Anion Gap 10 mmol/L (5-15) Blood Urea Nitrogen 34 mg/dL (7-18) H Creatinine 2.4 MG/DL (0.55-1.30) H Estimat Glomerular Filtration Rate 25.6 mL/min (>60) Glucose Level 149 MG/DL (74-106) H Calcium Level 8.3 MG/DL (8.5-10.1) L Triglycerides Level 133 MG/DL (30-150) Cholesterol Level 170 MG/DL (< 200) LDL Cholesterol 103 mg/dL (<100) H HDL Cholesterol 36 MG/DL (40-60) L Cholesterol/HDL Ratio 4.7 (3.3-4.4) H Height (Feet): 5 Height (Inches): 5.00 Weight (Pounds): 200 Medications Current Medications Medications (Trade) Dose Ordered Sig/Artemio Route PRN Reason Start Time Stop Time Status Last Admin Dose Admin Acetaminophen (Tylenol) 650 mg Q4H PRN ORAL fever 11/28/17 21:45 12/28/17 21:44 11/29/17 12:22 Acetaminophen (Tylenol) 650 mg Q4H PRN ORAL Mild Pain (Pain Scale 1-3) 11/28/17 21:45 12/28/17 21:44 11/30/17 04:19 Acetaminophen (Tylenol) 650 mg Q4H PRN RECTAL Mild Pain (Pain Scale 1-3) 11/28/17 21:45 12/28/17 21:44 Acetaminophen (Tylenol) 650 mg Q4H PRN RECTAL fever 11/28/17 21:45 12/28/17 21:44 Amlodipine Besylate (Norvasc) 10 mg DAILY ORAL 11/29/17 09:00 12/29/17 08:59 12/01/17 08:53 Aspirin (ASA) 81 mg DAILY ORAL 11/30/17 09:00 12/30/17 08:59 12/01/17 08:53 Ceftriaxone Sodium 1 gm/ Dextrose 50 ml @ 100 mls/hr DAILY IVPB 11/29/17 09:00 12/06/17 08:59 12/01/17 08:52 Clonidine HCl (Catapres Tab) 0.1 mg Q6H PRN ORAL sbp>160 11/28/17 21:45 12/28/17 21:44 Dextrose (Dextrose 50%) 25 ml Q30M PRN IV Hypoglycemia 11/28/17 21:45 12/28/17 21:44 Dextrose (Dextrose 50%) 50 ml Q30M PRN IV Hypoglycemia 11/28/17 21:45 12/28/17 21:44 Heparin Sodium (Porcine) (Heparin 5000 units/ml) 5,000 units EVERY 8 HOURS SUBQ 11/28/17 22:00 12/28/17 21:59 11/30/17 05:33 Insulin Aspart (NovoLOG) BEFORE MEALS AND HS SUBQ 11/29/17 06:30 12/29/17 06:29 11/30/17 20:52 Nitroglycerin (Ntg) 0.4 mg Q5M PRN SL Prn Chest Pain 11/28/17 21:45 12/28/17 21:44 Ondansetron HCl (Zofran) 4 mg Q6H PRN IVP Nausea & Vomiting 11/28/17 21:45 12/28/17 21:44 Pantoprazole (Protonix) 40 mg DAILY ORAL 11/29/17 09:00 12/29/17 08:59 12/01/17 08:53 Sodium Chloride 1,000 ml @ 50 mls/hr Q20H IV 11/30/17 09:30 12/30/17 09:29 11/30/17 09:39 Tramadol HCl (Ultram) 25 mg DAILY ORAL 11/29/17 09:00 12/06/17 08:59 12/01/17 08:54 Tramadol HCl (Ultram) 50 mg Q6H PRN ORAL For Pain 11/28/17 21:45 12/05/17 21:44 Zinc Sulfate (Zinc Sulfate) 220 mg DAILY ORAL 11/29/17 09:00 12/29/17 08:59 12/01/17 08:52 Assessment/Plan Status: stable, progressing Assessment/Plan MDD anxiety d/o DM ativan prn provided with checo/Remington Garcia MD Dec 01, 2017 12:26
[2017-12-01 16:00] VITALS: BP 119/71
--- NOTE | 2017-12-01 18:18 | Internal Med Progress Note ---
Subjective Date of Service: Dec 01, 2017 Physician Name CynthiaAriel Attending Physician Tobin Albert MD Current Medications Medications (Trade) Dose Ordered Sig/Artemio Route PRN Reason Start Time Stop Time Status Last Admin Dose Admin Acetaminophen (Tylenol) 650 mg Q4H PRN ORAL fever 11/28/17 21:45 12/28/17 21:44 11/29/17 12:22 Acetaminophen (Tylenol) 650 mg Q4H PRN ORAL Mild Pain (Pain Scale 1-3) 11/28/17 21:45 12/28/17 21:44 11/30/17 04:19 Acetaminophen (Tylenol) 650 mg Q4H PRN RECTAL Mild Pain (Pain Scale 1-3) 11/28/17 21:45 12/28/17 21:44 Acetaminophen (Tylenol) 650 mg Q4H PRN RECTAL fever 11/28/17 21:45 12/28/17 21:44 Amlodipine Besylate (Norvasc) 10 mg DAILY ORAL 11/29/17 09:00 12/29/17 08:59 12/01/17 08:53 Aspirin (ASA) 81 mg DAILY ORAL 11/30/17 09:00 12/30/17 08:59 12/01/17 08:53 Ceftriaxone Sodium 1 gm/ Dextrose 50 ml @ 100 mls/hr DAILY IVPB 11/29/17 09:00 12/06/17 08:59 12/01/17 08:52 Clonidine HCl (Catapres Tab) 0.1 mg Q6H PRN ORAL sbp>160 11/28/17 21:45 12/28/17 21:44 Dextrose (Dextrose 50%) 25 ml Q30M PRN IV Hypoglycemia 11/28/17 21:45 12/28/17 21:44 Dextrose (Dextrose 50%) 50 ml Q30M PRN IV Hypoglycemia 11/28/17 21:45 12/28/17 21:44 Heparin Sodium (Porcine) (Heparin 5000 units/ml) 5,000 units EVERY 8 HOURS SUBQ 11/28/17 22:00 12/28/17 21:59 12/01/17 14:25 Insulin Aspart (NovoLOG) BEFORE MEALS AND HS SUBQ 11/29/17 06:30 12/29/17 06:29 12/01/17 12:23 Nitroglycerin (Ntg) 0.4 mg Q5M PRN SL Prn Chest Pain 11/28/17 21:45 12/28/17 21:44 Ondansetron HCl (Zofran) 4 mg Q6H PRN IVP Nausea & Vomiting 11/28/17 21:45 12/28/17 21:44 Pantoprazole (Protonix) 40 mg DAILY ORAL 11/29/17 09:00 12/29/17 08:59 12/01/17 08:53 Sodium Chloride 1,000 ml @ 50 mls/hr Q20H IV 11/30/17 09:30 12/30/17 09:29 11/30/17 09:39 Tramadol HCl (Ultram) 25 mg DAILY ORAL 11/29/17 09:00 12/06/17 08:59 12/01/17 08:54 Tramadol HCl (Ultram) 50 mg Q6H PRN ORAL For Pain 11/28/17 21:45 12/05/17 21:44 Zinc Sulfate (Zinc Sulfate) 220 mg DAILY ORAL 11/29/17 09:00 12/29/17 08:59 12/01/17 08:52 Allergies: Coded Allergies: PENICILLINS (Verified Allergy, Severe, SWOLLEN BODY, 04/23/17) Per Daughter, patient has tolerated Amoxicillin Tolerated Ceftriaxone 04/22/17 Uncoded Allergies: Blood Transfusion (Adverse Reaction, Unknown, 06/29/17) Pt states that she develops lower extremity wounds after blood transfusions ROS Limited/Unobtainable: No Constitutional: Reports: no symptoms HEENT: Reports: no symptoms Cardiovascular: Reports: no symptoms Respiratory: Reports: no symptoms Gastrointestinal/Abdominal: Reports: no symptoms Genitourinary: Reports: no symptoms Neurologic/Psychiatric: Reports: no symptoms Subjective 52 YO F admitted with nausea and vomiting. Cover for Int leonidas-Dr Albert Objective Last Vital Signs Date Time Temp Pulse Resp B/P (MAP) Pulse Ox O2 Delivery O2 Flow Rate FiO2 12/01/17 16:00 98.2 80 20 119/71 (87) 98 98.2 12/01/17 09:00 Room Air Laboratory Tests Test 12/01/17 06:45 12/01/17 14:50 White Blood Count 5.8 K/UL (4.8-10.8) Red Blood Count 3.06 M/UL (4.20-5.40) L Hemoglobin 8.3 G/DL (12.0-16.0) L Hematocrit 26.4 % (37.0-47.0) L Mean Corpuscular Volume 86 FL (80-99) Mean Corpuscular Hemoglobin 27.2 PG (27.0-31.0) Mean Corpuscular Hemoglobin Concent 31.5 G/DL (32.0-36.0) L Red Cell Distribution Width 13.6 % (11.6-14.8) Platelet Count 143 K/UL (150-450) L Mean Platelet Volume 8.9 FL (6.5-10.1) Neutrophils (%) (Auto) 62.1 % (45.0-75.0) Lymphocytes (%) (Auto) 25.4 % (20.0-45.0) Monocytes (%) (Auto) 10.5 % (1.0-10.0) H Eosinophils (%) (Auto) 1.1 % (0.0-3.0) Basophils (%) (Auto) 0.8 % (0.0-2.0) Sodium Level 138 MMOL/L (136-145) Potassium Level 4.0 MMOL/L (3.5-5.1) Chloride Level 107 MMOL/L (98-107) Carbon Dioxide Level 21 MMOL/L (21-32) Anion Gap 10 mmol/L (5-15) Blood Urea Nitrogen 34 mg/dL (7-18) H Creatinine 2.4 MG/DL (0.55-1.30) H Estimat Glomerular Filtration Rate 25.6 mL/min (>60) Glucose Level 149 MG/DL (74-106) H Calcium Level 8.3 MG/DL (8.5-10.1) L Triglycerides Level 133 MG/DL (30-150) Cholesterol Level 170 MG/DL (< 200) LDL Cholesterol 103 mg/dL (<100) H HDL Cholesterol 36 MG/DL (40-60) L Cholesterol/HDL Ratio 4.7 (3.3-4.4) H Stool Occult Blood Pending Microbiology Date/Time Source Procedure Growth Status 11/28/17 21:22 Nasal Nares MRSA Culture - Final Staphylococcus Aureus - Mrsa Complete 11/28/17 20:35 Urine,Clean Catch Urine Culture - Preliminary NO GROWTH AFTER 24 HOURS Resulted 11/28/17 21:22 Rectum VRE Culture - Final Enterococcus Faecalis - Vre Resulted 11/28/17 21:22 Rectum - Preliminary Resulted Intake and Output 11/30/17 12/01/17 19:00 07:00 Intake Total 640 ml 480 ml Balance 640 ml 480 ml Intake Oral 640 ml 480 ml # Voids 4 Objective PHYSICAL EXAMINATION: GENERAL: The patient is a well-developed and well-nourished obese female, in no apparent distress. HEENT: Eyes, pupils are equal and responsive to light and accommodation. Extraocular movements are intact. NECK: Supple without lymphadenopathy. CHEST: Lungs are clear to auscultation bilaterally without wheezes or rales. CARDIOVASCULAR: Regular rate. S1, S2 normal without murmurs, rubs, or gallops. ABDOMEN: Soft, nontender, and nondistended. Positive bowel sounds. No evidence of hepatosplenomegaly. Currently, no rebound or guarding noted. EXTREMITIES: Negative for clubbing, cyanosis, or edema. RECTAL/GENITAL: Refused. NEUROLOGIC: Cranial nerves II through XII are grossly intact without focal deficits. Motor strength is 5/5 bilaterally. Deep tendon reflexes are 2+ plantar. Assessment/Plan Problem List: (1) Nausea & vomiting Assessment & Plan: Resolved (2) Diabetes mellitus (3) Diabetic foot ulcer (4) CKD (chronic kidney disease) Assessment & Plan: await nephrology note. (5) Osteomyelitis Assessment & Plan: Left foot. See surgery note. (6) HTN (hypertension) (7) Peripheral vascular disease Assessment & Plan: See arterial doppler result-await vascular surgery consult. Status: unchanged Ariel Marie MD Dec 01, 2017 18:18
[2017-12-01] MEDS ORDERED: Acetaminophen 650 MG SUPP RECTAL PRN ×2 (19:24→19:25)
[2017-12-01] MEDS ORDERED: Nitroglycerin Subl 0.4mg tab SL PRN (19:26)
[2017-12-01] MEDS ORDERED: traMADol 50mg tab ORAL PRN (19:27)
[2017-12-01] MEDS ORDERED: NS w/KCl 20mEq 1,000 ML IV SCH (19:45)
[2017-12-01 20:00] VITALS: BP 130/77
--- NOTE | 2017-12-01 23:39 | General Progress Note ---
Assessment/Plan Status: stable, progressing Assessment/Plan MDD anxiety d/o DM ativan prn provided with ro/st Subjective Date patient seen: Dec 01, 2017 Neurologic/Psychiatric: Reports: anxiety, depressed, emotional problems Allergies: Coded Allergies: PENICILLINS (Verified Allergy, Severe, SWOLLEN BODY, 04/23/17) Per Daughter, patient has tolerated Amoxicillin Tolerated Ceftriaxone 04/22/17 Uncoded Allergies: Blood Transfusion (Adverse Reaction, Unknown, 06/29/17) Pt states that she develops lower extremity wounds after blood transfusions Objective Last 24 Hour Vital Signs Date Time Temp Pulse Resp B/P (MAP) Pulse Ox O2 Delivery O2 Flow Rate FiO2 12/01/17 21:00 Room Air 12/01/17 20:00 98.7 79 20 130/77 (94) 100 98.7 12/01/17 16:00 98.2 80 20 119/71 (87) 98 98.2 12/01/17 16:00 82 12/01/17 12:00 98.5 77 18 128/74 (92) 98 98.5 12/01/17 12:00 80 12/01/17 09:00 Room Air 12/01/17 08:53 75 138/78 12/01/17 08:00 98.5 75 18 138/78 (98) 98 98.5 12/01/17 08:00 76 12/01/17 04:00 78 12/01/17 04:00 98.0 98 18 132/69 (90) 97 98.0 12/01/17 00:00 85 12/01/17 00:00 98.2 80 18 132/75 (94) 96 98.2 Intake and Output 11/30/17 12/01/17 18:59 06:59 Intake Total 715 ml 480 ml Balance 715 ml 480 ml Intake Oral 640 ml 480 ml IV Total 75 ml # Voids 4 Laboratory Tests 12/01/17 06:45: White Blood Count 5.8, Red Blood Count 3.06L, Hemoglobin 8.3L, Hematocrit 26.4L , Mean Corpuscular Volume 86, Mean Corpuscular Hemoglobin 27.2, Mean Corpuscular Hemoglobin Concent 31.5L, Red Cell Distribution Width 13.6, Platelet Count 143L, Mean Platelet Volume 8.9, Neutrophils (%) (Auto) 62.1, Lymphocytes (%) (Auto) 25.4, Monocytes (%) (Auto) 10.5H, Eosinophils (%) (Auto) 1.1, Basophils (%) (Auto) 0.8, Sodium Level 138, Potassium Level 4.0, Chloride Level 107, Carbon Dioxide Level 21, Anion Gap 10, Blood Urea Nitrogen 34H, Creatinine 2.4H, Estimat Glomerular Filtration Rate 25.6, Glucose Level 149H, Calcium Level 8.3L, Triglycerides Level 133, Cholesterol Level 170, LDL Cholesterol 103H, HDL Cholesterol 36L, Cholesterol/HDL Ratio 4.7H 12/01/17 14:50: Stool Occult Blood [Pending] Height (Feet): 5 Height (Inches): 5.00 Weight (Pounds): 200 General Appearance: no apparent distress, alert Neurologic: alert, oriented x 3, depressed affect Remington Kimbrough MD Dec 01, 2017 23:39
[2017-12-01] MEDS ORDERED: LORazepam 0.5mg tab ORAL PRN (23:45)
[2017-12-02] VITALS: BP 120/69
[2017-12-02 04:00] VITALS: BP 130/76
[2017-12-02] MEDS: NS w/KCl 20mEq 1,000 ML IV SCH ×2 (05:07→17:19)
[2017-12-02] MEDS: Heparin 5000 units/ml inj SUBQ SCH ×3 (06:00→21:42)
[2017-12-02] MEDS: NovoLOG Insulin Flexpen SUBQ SCH ×4 (06:11→20:34)
[2017-12-02 07:21] LABS: EOSINOPHILS % (AUTO) 3.3 % (0.0-3.0); HEMATOCRIT 29.2 % (37.0-47.0); HEMOGLOBIN 9.1 G/DL (12.0-16.0); LYMPHOCYTES % (AUTO) 34.5 % (20.0-45.0); MEAN CORPUSCULAR VOLUME 87 FL (80-99); MONOCYTES % (AUTO) 9.8 % (1.0-10.0); NEUTROPHILS % (AUTO) 51.5 % (45.0-75.0); PLATELET COUNT 174 K/UL (150-450); RED BLOOD COUNT 3.36 M/UL (4.20-5.40); RED CELL DISTRIBUTION WIDTH 13.5 % (11.6-14.8); WHITE BLOOD COUNT 5.5 K/UL (4.8-10.8)
[2017-12-02 07:40] LABS: ANION GAP 8 mmol/L (5-15); BLOOD UREA NITROGEN 31 mg/dL (7-18); CALCIUM 8.6 MG/DL (8.5-10.1); CARBON DIOXIDE 25 MMOL/L (21-32); CHLORIDE 107 MMOL/L (98-107); CREATININE 2.3 MG/DL (0.55-1.30); POTASSIUM 3.9 MMOL/L (3.5-5.1); SODIUM 140 MMOL/L (136-145)
[2017-12-02 08:00] VITALS: BP 131/77
--- NOTE | 2017-12-02 08:30 | General Surgery Progress Note ---
General Surgery-Progress Note Subjective Symptoms: improved, tolerating diet, passing flatus Additional Comments overall improving. states she feels better. no n/v/f/c. Objective Last 24 Hour Vital Signs Date Time Temp Pulse Resp B/P (MAP) Pulse Ox O2 Delivery O2 Flow Rate FiO2 12/02/17 04:00 97.5 71 20 130/76 (94) 100 97.5 12/02/17 00:00 98.2 79 20 120/69 (86) 100 98.2 12/01/17 21:00 Room Air 12/01/17 20:00 98.7 79 20 130/77 (94) 100 98.7 12/01/17 16:00 98.2 80 20 119/71 (87) 98 98.2 12/01/17 16:00 82 12/01/17 12:00 98.5 77 18 128/74 (92) 98 98.5 12/01/17 12:00 80 12/01/17 09:00 Room Air 12/01/17 08:53 75 138/78 I&O Intake and Output 12/01/17 12/02/17 19:00 07:00 Intake Total 360 ml 250 ml Output Total 1450 ml 800 ml Balance -1090 ml -550 ml Intake Oral 360 ml IV Total 250 ml Output Urine Total 1450 ml 800 ml Dressing: saturated Wound: other Drains: other Cardiovascular: RSR Respiratory: clear Abdomen: soft, flat, non-tender, present bowel sounds Extremities: other Laboratory Tests Test 12/01/17 14:50 12/02/17 06:20 Stool Occult Blood Positive (NEGATIVE) White Blood Count 5.5 K/UL (4.8-10.8) Red Blood Count 3.36 M/UL (4.20-5.40) L Hemoglobin 9.1 G/DL (12.0-16.0) L Hematocrit 29.2 % (37.0-47.0) L Mean Corpuscular Volume 87 FL (80-99) Mean Corpuscular Hemoglobin 27.2 PG (27.0-31.0) Mean Corpuscular Hemoglobin Concent 31.3 G/DL (32.0-36.0) L Red Cell Distribution Width 13.5 % (11.6-14.8) Platelet Count 174 K/UL (150-450) Mean Platelet Volume 8.9 FL (6.5-10.1) Neutrophils (%) (Auto) 51.5 % (45.0-75.0) Lymphocytes (%) (Auto) 34.5 % (20.0-45.0) Monocytes (%) (Auto) 9.8 % (1.0-10.0) Eosinophils (%) (Auto) 3.3 % (0.0-3.0) H Basophils (%) (Auto) 1.0 % (0.0-2.0) Sodium Level 140 MMOL/L (136-145) Potassium Level 3.9 MMOL/L (3.5-5.1) Chloride Level 107 MMOL/L (98-107) Carbon Dioxide Level 25 MMOL/L (21-32) Anion Gap 8 mmol/L (5-15) Blood Urea Nitrogen 31 mg/dL (7-18) H Creatinine 2.3 MG/DL (0.55-1.30) H Estimat Glomerular Filtration Rate 26.8 mL/min (>60) Glucose Level 144 MG/DL (74-106) H Calcium Level 8.6 MG/DL (8.5-10.1) Plan Problems: (1) Sepsis Assessment & Plan: patient well known to me. left foot wounds significantly healed. likely still underlying tissue loss but no active infection noted right foot s/p amputation stable. possible enteritis which is resolving possible uti? Duplex studies noted. known peripheral vasculopathy. prior MRI with substantial tissue/bone disease. prior amputation recommended. appreciate vascular input leukocytosis improving -no acute surgical intervention necessary. -IV abx -okay for diet will follow with recs. thank you Sandro Ramirez Dec 02, 2017 08:30
[2017-12-02] MEDS: Zinc Sulfate 220mg cap ORAL SCH (08:57)
[2017-12-02] MEDS: Aspirin Baby 81mg ORAL SCH (08:57)
[2017-12-02] MEDS: traMADol 50mg tab ORAL SCH (08:58)
[2017-12-02] MEDS: cefTRIAXone 1 GM in D5W 50 ML IVPB SCH (09:15)
--- NOTE | 2017-12-02 10:56 | Pulmonology Progress Note ---
Assessment/Plan Problems: (1) Sepsis (2) Diabetic foot ulcer (3) Diabetes mellitus (4) Diabetic nephropathy (5) Peripheral vascular disease (6) HTN (hypertension) Assessment/Plan vascular saw her, no intervention recommended for now ID evaluation pending continue abx, pt is afebrile improving check cultures continue abx wound care ID evaluation check electrolytes Subjective ROS Limited/Unobtainable: No Constitutional: Reports: no symptoms HEENT: Repors: no symptoms Respiratory: Reports: no symptoms Allergies: Coded Allergies: PENICILLINS (Verified Allergy, Severe, SWOLLEN BODY, 04/23/17) Per Daughter, patient has tolerated Amoxicillin Tolerated Ceftriaxone 04/22/17 Uncoded Allergies: Blood Transfusion (Adverse Reaction, Unknown, 06/29/17) Pt states that she develops lower extremity wounds after blood transfusions Objective Last 24 Hour Vital Signs Date Time Temp Pulse Resp B/P (MAP) Pulse Ox O2 Delivery O2 Flow Rate FiO2 12/02/17 09:00 Room Air 12/02/17 08:58 75 131/77 12/02/17 08:00 97.5 75 20 131/77 (95) 97 97.5 12/02/17 04:00 97.5 71 20 130/76 (94) 100 97.5 12/02/17 00:00 98.2 79 20 120/69 (86) 100 98.2 12/01/17 21:00 Room Air 12/01/17 20:00 98.7 79 20 130/77 (94) 100 98.7 12/01/17 16:00 98.2 80 20 119/71 (87) 98 98.2 12/01/17 16:00 82 12/01/17 12:00 98.5 77 18 128/74 (92) 98 98.5 12/01/17 12:00 80 Intake and Output 12/01/17 12/02/17 19:00 07:00 Intake Total 360 ml 250 ml Output Total 1450 ml 800 ml Balance -1090 ml -550 ml Intake Oral 360 ml IV Total 250 ml Output Urine Total 1450 ml 800 ml General Appearance: WD/WN HEENT: normocephalic, atraumatic Respiratory/Chest: chest wall non-tender, lungs clear, no respiratory distress Breasts: no masses Cardiovascular: normal peripheral pulses, normal rate Abdomen: normal bowel sounds, soft, non tender Extremities: no cyanosis Laboratory Tests 12/01/17 14:50: Stool Occult Blood Positive 12/02/17 06:20: White Blood Count 5.5, Red Blood Count 3.36L, Hemoglobin 9.1L, Hematocrit 29.2L , Mean Corpuscular Volume 87, Mean Corpuscular Hemoglobin 27.2, Mean Corpuscular Hemoglobin Concent 31.3L, Red Cell Distribution Width 13.5, Platelet Count 174, Mean Platelet Volume 8.9, Neutrophils (%) (Auto) 51.5, Lymphocytes (%) (Auto) 34.5, Monocytes (%) (Auto) 9.8, Eosinophils (%) (Auto) 3.3H, Basophils (%) (Auto) 1.0, Sodium Level 140, Potassium Level 3.9, Chloride Level 107, Carbon Dioxide Level 25, Anion Gap 8, Blood Urea Nitrogen 31H, Creatinine 2.3H, Estimat Glomerular Filtration Rate 26.8, Glucose Level 144H, Calcium Level 8.6 Current Medications Medications (Trade) Dose Ordered Sig/Artemio Route PRN Reason Start Time Stop Time Status Last Admin Dose Admin Acetaminophen (Tylenol) 650 mg Q4H PRN ORAL Mild Pain (Pain Scale 1-3) 12/01/17 19:25 12/28/17 19:24 12/01/17 22:09 Acetaminophen (Tylenol) 650 mg Q4H PRN ORAL fever 12/01/17 19:25 12/28/17 19:24 Acetaminophen (Tylenol) 650 mg Q4H PRN RECTAL Mild Pain (Pain Scale 1-3) 12/01/17 19:24 12/28/17 19:23 Acetaminophen (Tylenol) 650 mg Q4H PRN RECTAL fever 12/01/17 19:25 12/28/17 19:24 Amlodipine Besylate (Norvasc) 10 mg DAILY ORAL 12/02/17 09:00 12/29/17 08:59 12/02/17 08:58 Aspirin (ASA) 81 mg DAILY ORAL 12/02/17 09:00 12/30/17 08:59 12/02/17 08:57 Atorvastatin Calcium (Lipitor) 20 mg BEDTIME ORAL 12/02/17 21:00 01/01/18 20:59 Ceftriaxone Sodium 1 gm/ Dextrose 50 ml @ 100 mls/hr DAILY IVPB 12/02/17 09:00 12/06/17 08:59 12/02/17 09:15 Clonidine HCl (Catapres Tab) 0.1 mg Q6H PRN ORAL sbp>160 12/01/17 19:25 12/28/17 19:24 Dextrose (Dextrose 50%) 25 ml Q30M PRN IV Hypoglycemia 12/01/17 19:26 12/28/17 19:25 Dextrose (Dextrose 50%) 50 ml Q30M PRN IV Hypoglycemia 12/01/17 19:26 12/28/17 19:25 Heparin Sodium (Porcine) (Heparin 5000 units/ml) 5,000 units EVERY 8 HOURS SUBQ 12/01/17 22:00 12/28/17 21:59 Insulin Aspart (NovoLOG) BEFORE MEALS AND HS SUBQ 12/01/17 21:00 12/29/17 06:29 12/01/17 22:05 Lorazepam (Ativan) 2 mg Q6H PRN ORAL For Anxiety 12/01/17 23:45 12/08/17 23:44 Nitroglycerin (Ntg) 0.4 mg Q5MIN X 3 DOSES PRN SL Prn Chest Pain 12/01/17 19:26 12/31/17 19:25 Ondansetron HCl (Zofran) 4 mg Q6H PRN IVP Nausea & Vomiting 12/01/17 19:27 12/28/17 19:26 Pantoprazole (Protonix) 40 mg DAILY ORAL 12/02/17 09:00 12/29/17 08:59 12/02/17 08:58 Sodium Chloride 1,000 ml @ 50 mls/hr Q20H IV 12/02/17 05:39 01/01/18 05:38 Tramadol HCl (Ultram) 25 mg DAILY ORAL 12/02/17 09:00 12/06/17 08:59 12/02/17 08:58 Tramadol HCl (Ultram) 50 mg Q6H PRN ORAL For Pain 12/01/17 19:27 12/05/17 19:26 Zinc Sulfate (Zinc Sulfate) 220 mg DAILY ORAL 12/02/17 09:00 12/29/17 08:59 12/02/17 08:57 Ruby Richmond MD Dec 02, 2017 10:55
[2017-12-02 12:00] VITALS: BP 127/74
[2017-12-02] MEDS ORDERED: D5 1/2NS 1000ml IV ONE (15:16)
--- NOTE | 2017-12-02 15:25 | Consultation ---
Consult Note Consult Note [id number] Manuel Rubi MD Dec 02, 2017 15:25
--- NOTE | 2017-12-02 15:32 | Consultation ---
Consult Note Assessment/Plan A/ 1) DM foot ulcers bilateral feet 2) h/o OM left foot 3) PAD 4) DM neuropathy 5) Chopart amputation right foot P/ 1) New wound care orders placed bilateral 2) Vasc consult pending. Imaging noted 3) No surgical intervention indicated at this time 4) Abx per ID 5) Will follow Thank you Dr Marie. Zay Schwarz DPM Dec 02, 2017 15:32
[2017-12-02 16:00] VITALS: BP 132/83
--- NOTE | 2017-12-02 16:24 | Cardiology Report ---
APPROVED REPORT EKG Measurement Heart [id number] VT [id number] Sinus tachycardia Possible Left atrial enlargement Left axis deviation Septal infarct, age undetermined Abnormal ECG
--- NOTE | 2017-12-02 17:14 | Internal Med Progress Note ---
Subjective Date of Service: Dec 02, 2017 Physician Name CynthiaAriel Attending Physician Tobin Albert MD Current Medications Medications (Trade) Dose Ordered Sig/Artemio Route PRN Reason Start Time Stop Time Status Last Admin Dose Admin Acetaminophen (Tylenol) 650 mg Q4H PRN ORAL Mild Pain (Pain Scale 1-3) 12/01/17 19:25 12/28/17 19:24 12/01/17 22:09 Acetaminophen (Tylenol) 650 mg Q4H PRN ORAL fever 12/01/17 19:25 12/28/17 19:24 Acetaminophen (Tylenol) 650 mg Q4H PRN RECTAL Mild Pain (Pain Scale 1-3) 12/01/17 19:24 12/28/17 19:23 Acetaminophen (Tylenol) 650 mg Q4H PRN RECTAL fever 12/01/17 19:25 12/28/17 19:24 Amlodipine Besylate (Norvasc) 10 mg DAILY ORAL 12/02/17 09:00 12/29/17 08:59 12/02/17 08:58 Aspirin (ASA) 81 mg DAILY ORAL 12/02/17 09:00 12/30/17 08:59 12/02/17 08:57 Atorvastatin Calcium (Lipitor) 20 mg BEDTIME ORAL 12/02/17 21:00 01/01/18 20:59 Ceftriaxone Sodium 1 gm/ Dextrose 50 ml @ 100 mls/hr DAILY IVPB 12/02/17 09:00 12/06/17 08:59 12/02/17 09:15 Clonidine HCl (Catapres Tab) 0.1 mg Q6H PRN ORAL sbp>160 12/01/17 19:25 12/28/17 19:24 Dextrose (Dextrose 50%) 25 ml Q30M PRN IV Hypoglycemia 12/01/17 19:26 12/28/17 19:25 Dextrose (Dextrose 50%) 50 ml Q30M PRN IV Hypoglycemia 12/01/17 19:26 12/28/17 19:25 Heparin Sodium (Porcine) (Heparin 5000 units/ml) 5,000 units EVERY 8 HOURS SUBQ 12/01/17 22:00 12/28/17 21:59 12/02/17 14:41 Insulin Aspart (NovoLOG) BEFORE MEALS AND HS SUBQ 12/01/17 21:00 12/29/17 06:29 12/02/17 11:39 Lorazepam (Ativan) 2 mg Q6H PRN ORAL For Anxiety 12/01/17 23:45 12/08/17 23:44 Nitroglycerin (Ntg) 0.4 mg Q5MIN X 3 DOSES PRN SL Prn Chest Pain 12/01/17 19:26 12/31/17 19:25 Ondansetron HCl (Zofran) 4 mg Q6H PRN IVP Nausea & Vomiting 12/01/17 19:27 12/28/17 19:26 Pantoprazole (Protonix) 40 mg DAILY ORAL 12/02/17 09:00 12/29/17 08:59 12/02/17 08:58 Sodium Chloride 1,000 ml @ 50 mls/hr Q20H IV 12/02/17 05:39 01/01/18 05:38 Tramadol HCl (Ultram) 25 mg DAILY ORAL 12/02/17 09:00 12/06/17 08:59 12/02/17 08:58 Tramadol HCl (Ultram) 50 mg Q6H PRN ORAL For Pain 12/01/17 19:27 12/05/17 19:26 Zinc Sulfate (Zinc Sulfate) 220 mg DAILY ORAL 12/02/17 09:00 12/29/17 08:59 12/02/17 08:57 Allergies: Coded Allergies: PENICILLINS (Verified Allergy, Severe, SWOLLEN BODY, 04/23/17) Per Daughter, patient has tolerated Amoxicillin Tolerated Ceftriaxone 04/22/17 Uncoded Allergies: Blood Transfusion (Adverse Reaction, Unknown, 06/29/17) Pt states that she develops lower extremity wounds after blood transfusions ROS Limited/Unobtainable: No Constitutional: Reports: no symptoms HEENT: Reports: no symptoms Cardiovascular: Reports: no symptoms Respiratory: Reports: no symptoms Gastrointestinal/Abdominal: Reports: no symptoms Genitourinary: Reports: no symptoms Neurologic/Psychiatric: Reports: no symptoms Subjective 52 YO F admitted with nausea and vomiting. Cover for Devyn lauren-Dr Albert. Await vascular surgery consult Objective Last Vital Signs Date Time Temp Pulse Resp B/P (MAP) Pulse Ox O2 Delivery O2 Flow Rate FiO2 12/02/17 12:00 97.7 70 20 127/74 (91) 98 97.7 12/02/17 09:00 Room Air Laboratory Tests Test 12/02/17 06:20 White Blood Count 5.5 K/UL (4.8-10.8) Red Blood Count 3.36 M/UL (4.20-5.40) L Hemoglobin 9.1 G/DL (12.0-16.0) L Hematocrit 29.2 % (37.0-47.0) L Mean Corpuscular Volume 87 FL (80-99) Mean Corpuscular Hemoglobin 27.2 PG (27.0-31.0) Mean Corpuscular Hemoglobin Concent 31.3 G/DL (32.0-36.0) L Red Cell Distribution Width 13.5 % (11.6-14.8) Platelet Count 174 K/UL (150-450) Mean Platelet Volume 8.9 FL (6.5-10.1) Neutrophils (%) (Auto) 51.5 % (45.0-75.0) Lymphocytes (%) (Auto) 34.5 % (20.0-45.0) Monocytes (%) (Auto) 9.8 % (1.0-10.0) Eosinophils (%) (Auto) 3.3 % (0.0-3.0) H Basophils (%) (Auto) 1.0 % (0.0-2.0) Sodium Level 140 MMOL/L (136-145) Potassium Level 3.9 MMOL/L (3.5-5.1) Chloride Level 107 MMOL/L (98-107) Carbon Dioxide Level 25 MMOL/L (21-32) Anion Gap 8 mmol/L (5-15) Blood Urea Nitrogen 31 mg/dL (7-18) H Creatinine 2.3 MG/DL (0.55-1.30) H Estimat Glomerular Filtration Rate 26.8 mL/min (>60) Glucose Level 144 MG/DL (74-106) H Calcium Level 8.6 MG/DL (8.5-10.1) Intake and Output 12/01/17 12/02/17 19:00 07:00 Intake Total 360 ml 250 ml Output Total 1450 ml 800 ml Balance -1090 ml -550 ml Intake Oral 360 ml IV Total 250 ml Output Urine Total 1450 ml 800 ml Objective PHYSICAL EXAMINATION: GENERAL: The patient is a well-developed and well-nourished obese female, in no apparent distress. HEENT: Eyes, pupils are equal and responsive to light and accommodation. Extraocular movements are intact. NECK: Supple without lymphadenopathy. CHEST: Lungs are clear to auscultation bilaterally without wheezes or rales. CARDIOVASCULAR: Regular rate. S1, S2 normal without murmurs, rubs, or gallops. ABDOMEN: Soft, nontender, and nondistended. Positive bowel sounds. No evidence of hepatosplenomegaly. Currently, no rebound or guarding noted. EXTREMITIES: Negative for clubbing, cyanosis, or edema. RECTAL/GENITAL: Refused. NEUROLOGIC: Cranial nerves II through XII are grossly intact without focal deficits. Motor strength is 5/5 bilaterally. Deep tendon reflexes are 2+ plantar. Assessment/Plan Problem List: (1) Nausea & vomiting Assessment & Plan: Resolved (2) Diabetes mellitus (3) Diabetic foot ulcer (4) CKD (chronic kidney disease) Assessment & Plan: await nephrology note. (5) Osteomyelitis Assessment & Plan: Left foot. See surgery note. (6) HTN (hypertension) (7) Peripheral vascular disease Assessment & Plan: See arterial doppler result-await vascular surgery consult. Status: progressing Ariel Marie MD Dec 02, 2017 17:14
[2017-12-02 20:00] VITALS: BP 131/79
[2017-12-02] MEDS ORDERED: Atorvastatin 20mg tab ORAL SCH (21:00)
--- NOTE | 2017-12-02 21:47 | General Progress Note ---
Assessment/Plan Status: stable, progressing Assessment/Plan MDD anxiety d/o DM ativan prn provided with ro/st Subjective Date patient seen: Dec 02, 2017 Neurologic/Psychiatric: Reports: anxiety, depressed, emotional problems Allergies: Coded Allergies: PENICILLINS (Verified Allergy, Severe, SWOLLEN BODY, 04/23/17) Per Daughter, patient has tolerated Amoxicillin Tolerated Ceftriaxone 04/22/17 Uncoded Allergies: Blood Transfusion (Adverse Reaction, Unknown, 06/29/17) Pt states that she develops lower extremity wounds after blood transfusions Objective Last 24 Hour Vital Signs Date Time Temp Pulse Resp B/P (MAP) Pulse Ox O2 Delivery O2 Flow Rate FiO2 12/02/17 20:00 97.7 80 20 131/79 (96) 98 97.7 12/02/17 16:00 97.7 77 20 132/83 (99) 95 97.7 12/02/17 12:00 97.7 70 20 127/74 (91) 98 97.7 12/02/17 09:00 Room Air 12/02/17 08:58 75 131/77 12/02/17 08:00 97.5 75 20 131/77 (95) 97 97.5 12/02/17 04:00 97.5 71 20 130/76 (94) 100 97.5 12/02/17 00:00 98.2 79 20 120/69 (86) 100 98.2 Intake and Output 12/01/17 12/02/17 19:00 07:00 Intake Total 360 ml 250 ml Output Total 1450 ml 800 ml Balance -1090 ml -550 ml Intake Oral 360 ml IV Total 250 ml Output Urine Total 1450 ml 800 ml Laboratory Tests 12/02/17 06:20: White Blood Count 5.5, Red Blood Count 3.36L, Hemoglobin 9.1L, Hematocrit 29.2L , Mean Corpuscular Volume 87, Mean Corpuscular Hemoglobin 27.2, Mean Corpuscular Hemoglobin Concent 31.3L, Red Cell Distribution Width 13.5, Platelet Count 174, Mean Platelet Volume 8.9, Neutrophils (%) (Auto) 51.5, Lymphocytes (%) (Auto) 34.5, Monocytes (%) (Auto) 9.8, Eosinophils (%) (Auto) 3.3H, Basophils (%) (Auto) 1.0, Sodium Level 140, Potassium Level 3.9, Chloride Level 107, Carbon Dioxide Level 25, Anion Gap 8, Blood Urea Nitrogen 31H, Creatinine 2.3H, Estimat Glomerular Filtration Rate 26.8, Glucose Level 144H, Calcium Level 8.6 Height (Feet): 5 Height (Inches): 5.00 Weight (Pounds): 200 General Appearance: no apparent distress, alert Neurologic: oriented x 3 Remington Kimbrough MD Dec 02, 2017 21:47
--- NOTE | 2017-12-02 22:44 | General Progress Note ---
Progress Note Progress Note Patient seen and examined earlier Obese HTN DM with peripheral neuropathy Renal failure stage 3 Former smoker Right TMA and left foot wounds--healing with hx of osteo Palpable femoral popliteal and left DP pulses 2+ (marked on skin) Duplex with calcific PAD Rec Abx per ID Left foot wound care per podiatry Antiplatelet & statin therapy Decub & DVT precautions High risk of worsening renal failure with contrast angiogram Continue with conservative tx for left foot wounds---has palpable DP pulse with adequate arterial perfusion d/w pt at length d/w nurse at bedside Lucio Fish MD Dec 02, 2017 22:44
--- NOTE | 2017-12-02 23:45 | Consultation ---
DATE OF CONSULTATION: 12/02/2017 CONSULTING PHYSICIAN: Zay Schwarz D.P.M. REQUESTING PHYSICIAN: Ariel Marie M.D. REASON FOR CONSULTATION: Diabetic foot ulcers. HISTORY OF PRESENT ILLNESS: The patient is a 52-year-old female, who was admitted to [facility] on November 28, 2017 for sepsis and dehydration. The patient states that she had a right partial foot amputation done several years ago with wound on the stump site, which continually closes and opens. She does have a special boot that she wears for the right side when she ambulates. She has had chronic wounds on the left foot as well, which she believes are attributed to blood transfusion. PAST MEDICAL HISTORY: Significant for history of osteomyelitis on the left foot, type 2 diabetes, chronic kidney disease, diabetic nephropathy, gastroesophageal reflux disease, and osteomyelitis of the left foot with multiple surgical pedal procedures. MEDICATIONS: Per [facility] and include ceftriaxone, 81 mg of aspirin, zinc sulfate, and heparin for DVT prophylaxis. ALLERGIES: She is allergic to penicillins and blood transfusion. SOCIAL HISTORY: The patient [facility] in a pen[facility]iary facility. FAMILY HISTORY: Noncontributory. REVIEW OF SYSTEMS: Deferred, but the patient denies any fevers, chills, nausea, or vomiting at this time. PHYSICAL EXAMINATION: VITAL SIGNS: Temperature is 97.7, pulse is 70, respiratory rate is 20, blood pressure is 127/74, and saturating 98% on room air. EXTREMITIES: Lower extremity physical exam, vascular, nonpalpable pedal pulses noted bilaterally. Feet are equally warm. There is no edema or cyanosis noted. DERMATOLOGICAL: There is a full-thickness ulceration noted on the distal stump site of the right foot. Full-thickness ulceration is noted. No signs of acute infection are observed. No bone or tendon exposed. On the left foot, two full-thickness ulcerations are noted on the plantar aspect of the foot. Neither of which communicate with each other both proximally probe to muscle. No deep infection is noted. No bone or tendon is exposed. No tunneling or undermining is noted on either wound. No signs of acute infection are noted. NEUROLOGICAL: Protective threshold is absent. MUSCULOSKELETAL: Chopart amputation is noted on the right. No gross deformities are noted on the left. Per the patient history, she states that she is ambulatory. LABORATORY DATA: White blood cell count is 5.5, down from admission of 13.4, hemoglobin and hematocrit is 9.1 and 29.2, and platelet count is 174. Potassium is 3.9, BUN is 31, creatinine is 2.3, and glucose is 144. Albumin is 2.4. Imaging, arterial ultrasound noted of bilateral lower extremities is noted to have Doppler waveforms bilateral that are compatible and consistent with [id number] ischemia at risk. MRI done of the left ankle on July 01, 2007 showed progressively worsening osteomyelitis of bilateral malleoli, distal tibial plafond and talus, possibly upper part of the calcaneus. ASSESSMENT: 1. Diabetic foot ulcers, bilateral feet. 2. History of osteomyelitis on the left foot and ankle. 3. Peripheral arterial disease. 4. Diabetes mellitus with peripheral neuropathy. 5. Chopart amputation of the right foot. PLAN: 1. New wound care orders were placed bilateral consists of cleaning the right stump site with NS, patting and dry and apply Hydrogel and dry dressing daily and then on the left side, cleaning the site with normal saline patting and drying, packing calcium alginate and dry dressing daily. 2. Vascular consult was pending. Imaging is noted. 3. No surgical intervention is indicated at this time as she has severe peripheral vascular disease and any surgical intervention on the lower extremities will likely end up in higher level amputation. 4. Antibiotics per Infectious Disease. 5. We will follow. Thank you for the courtesy of this consultation. Zay Schwarz D.P.M. DR: NASREEN/SERGIO JOB#: [id number] CC:
[2017-12-03] VITALS: BP 137/76
--- NOTE | 2017-12-03 00:45 | Consultation ---
DATE OF CONSULTATION: 12/02/2017 INFECTIOUS DISEASE CONSULTATION CONSULTING PHYSICIAN: Manuel Rubi M.D. REASON FOR CONSULTATION: Evaluation of the patient with fever, leukocytosis and antibiotic management. HISTORY OF PRESENT ILLNESS: The patient is a 52-year-old female with multiple medical problems who was admitted to this medical center for nausea, vomiting and fever. At the time of evaluation, the patient was found to have leukocytosis and low-grade fever. Infectious Disease consultation has been requested for further evaluation of the patient and antibiotic management. The patient was started on IV Rocephin. PAST MEDICAL HISTORY: 1. CKD. 2. Diabetes. 3. GERD. 4. Osteomyelitis of left foot. 5. History of right foot amputation. MEDICATIONS: IV Rocephin. SOCIAL HISTORY: No history of drug abuse or alcohol abuse. ALLERGIES: Allergy to penicillin (the patient is tolerating Rocephin). PHYSICAL EXAMINATION: VITAL SIGNS: Temperature 97.6, pulse 66, respiratory rate 18, T-max 102.4, and blood pressure 127/74. HEENT: No pale conjunctivae. No icterus. NECK: No lymphadenopathy. CHEST: Clear. HEART: S1 and S2. ABDOMEN: Soft and obese. EXTREMITIES: No cyanosis at this time. The patient has right foot amputation. Site has no evidence of discharge or open wound or infection. Left foot, mild edema. NEUROLOGIC: Awake. LABORATORY DATA: White blood cell count 13.4, 5.4, hemoglobin 9.1, and platelet 174. UA unremarkable. Stool occult blood positive. BUN of 31 and creatinine 2.3. ALT, AST, and alkaline phosphatase are unremarkable. Urine culture, no growth. Blood culture is pending. Influenza A and B negative. Chest x-ray, no acute disease. Overall unremarkable arterial Doppler lower extremity. ASSESSMENT: 1. The patient is a 52-year-old female with status post fever. 2. Status post leukocytosis. 3. Status post nausea, vomiting, diarrhea/gastroenteritis is resolved. 4. Influenza A/B screening negative. 5. Urine culture negative. 6. Probable bacteremia. PLAN: 1. On Rocephin day #1. 2. Monitor CBC. 3. Monitor BMP. 4. Monitor cultures (blood). 5. May discontinue Rocephin soon if the cultures stay negative. Thank you, Dr. Richmond and Dr. Marie, for allowing me to participate in the care of this patient. I will follow the patient with you during this hospitalization. Manuel Rubi M.D. DR: SABRINA JOB#: [id number] CC:
[2017-12-03 04:00] VITALS: BP 137/81
[2017-12-03] MEDS: Heparin 5000 units/ml inj SUBQ SCH ×2 (06:13→14:00)
[2017-12-03] MEDS: NovoLOG Insulin Flexpen SUBQ SCH ×3 (06:14→17:23)
[2017-12-03 08:00] VITALS: BP 138/81
[2017-12-03] MEDS: cefTRIAXone 1 GM in D5W 50 ML IVPB SCH (08:47)
[2017-12-03] MEDS: traMADol 50mg tab ORAL SCH (08:48)
[2017-12-03] MEDS: Zinc Sulfate 220mg cap ORAL SCH (08:49)
[2017-12-03] MEDS: Aspirin Baby 81mg ORAL SCH (08:49)
[2017-12-03] MEDS ORDERED: LIPITOR20 MG ORAL (11:47)
[2017-12-03] MEDS ORDERED: ASPIRIN81 MG ORAL (11:47)
--- NOTE | 2017-12-03 11:50 | Internal Med Progress Note ---
Subjective Date of Service: Dec 03, 2017 Physician Name Ariel Marie Attending Physician Tobin Albert MD Current Medications Medications (Trade) Dose Ordered Sig/Artemio Route PRN Reason Start Time Stop Time Status Last Admin Dose Admin Acetaminophen (Tylenol) 650 mg Q4H PRN ORAL Mild Pain (Pain Scale 1-3) 12/01/17 19:25 12/28/17 19:24 12/01/17 22:09 Acetaminophen (Tylenol) 650 mg Q4H PRN ORAL fever 12/01/17 19:25 12/28/17 19:24 Acetaminophen (Tylenol) 650 mg Q4H PRN RECTAL Mild Pain (Pain Scale 1-3) 12/01/17 19:24 12/28/17 19:23 Acetaminophen (Tylenol) 650 mg Q4H PRN RECTAL fever 12/01/17 19:25 12/28/17 19:24 Amlodipine Besylate (Norvasc) 10 mg DAILY ORAL 12/02/17 09:00 12/29/17 08:59 12/03/17 08:49 Aspirin (ASA) 81 mg DAILY ORAL 12/02/17 09:00 12/30/17 08:59 12/03/17 08:49 Atorvastatin Calcium (Lipitor) 20 mg BEDTIME ORAL 12/02/17 21:00 01/01/18 20:59 12/02/17 20:33 Ceftriaxone Sodium 1 gm/ Dextrose 50 ml @ 100 mls/hr DAILY IVPB 12/02/17 09:00 12/06/17 08:59 12/03/17 08:47 Clonidine HCl (Catapres Tab) 0.1 mg Q6H PRN ORAL sbp>160 12/01/17 19:25 12/28/17 19:24 Dextrose (Dextrose 50%) 25 ml Q30M PRN IV Hypoglycemia 12/01/17 19:26 12/28/17 19:25 Dextrose (Dextrose 50%) 50 ml Q30M PRN IV Hypoglycemia 12/01/17 19:26 12/28/17 19:25 Heparin Sodium (Porcine) (Heparin 5000 units/ml) 5,000 units EVERY 8 HOURS SUBQ 12/01/17 22:00 12/28/17 21:59 12/03/17 06:13 Insulin Aspart (NovoLOG) BEFORE MEALS AND HS SUBQ 12/01/17 21:00 12/29/17 06:29 12/03/17 06:14 Lorazepam (Ativan) 2 mg Q6H PRN ORAL For Anxiety 12/01/17 23:45 12/08/17 23:44 Nitroglycerin (Ntg) 0.4 mg Q5MIN X 3 DOSES PRN SL Prn Chest Pain 12/01/17 19:26 12/31/17 19:25 Ondansetron HCl (Zofran) 4 mg Q6H PRN IVP Nausea & Vomiting 12/01/17 19:27 12/28/17 19:26 Pantoprazole (Protonix) 40 mg DAILY ORAL 12/02/17 09:00 12/29/17 08:59 12/03/17 08:49 Sodium Chloride 1,000 ml @ 50 mls/hr Q20H IV 12/02/17 05:39 01/01/18 05:38 12/02/17 17:19 Tramadol HCl (Ultram) 25 mg DAILY ORAL 12/02/17 09:00 12/06/17 08:59 12/03/17 08:48 Tramadol HCl (Ultram) 50 mg Q6H PRN ORAL For Pain 12/01/17 19:27 12/05/17 19:26 Zinc Sulfate (Zinc Sulfate) 220 mg DAILY ORAL 12/02/17 09:00 12/29/17 08:59 12/03/17 08:49 Allergies: Coded Allergies: PENICILLINS (Verified Allergy, Severe, SWOLLEN BODY, 04/23/17) Per Daughter, patient has tolerated Amoxicillin Tolerated Ceftriaxone 04/22/17 Uncoded Allergies: Blood Transfusion (Adverse Reaction, Unknown, 06/29/17) Pt states that she develops lower extremity wounds after blood transfusions ROS Limited/Unobtainable: No Constitutional: Reports: no symptoms HEENT: Reports: no symptoms Cardiovascular: Reports: no symptoms Respiratory: Reports: no symptoms Gastrointestinal/Abdominal: Reports: no symptoms Genitourinary: Reports: no symptoms Neurologic/Psychiatric: Reports: no symptoms Subjective 52 YO F admitted with nausea and vomiting. Cover for Devyn Albert. Objective Last Vital Signs Date Time Temp Pulse Resp B/P (MAP) Pulse Ox O2 Delivery O2 Flow Rate FiO2 12/03/17 09:00 Room Air 12/03/17 08:49 75 138/81 12/03/17 08:00 97.7 20 99 97.7 Intake and Output 12/02/17 12/03/17 19:00 07:00 Intake Total 510 ml 890 ml Balance 510 ml 890 ml Intake Oral 510 ml 240 ml IV Total 650 ml # Voids 3 2 Objective PHYSICAL EXAMINATION: GENERAL: The patient is a well-developed and well-nourished obese female, in no apparent distress. HEENT: Eyes, pupils are equal and responsive to light and accommodation. Extraocular movements are intact. NECK: Supple without lymphadenopathy. CHEST: Lungs are clear to auscultation bilaterally without wheezes or rales. CARDIOVASCULAR: Regular rate. S1, S2 normal without murmurs, rubs, or gallops. ABDOMEN: Soft, nontender, and nondistended. Positive bowel sounds. No evidence of hepatosplenomegaly. Currently, no rebound or guarding noted. EXTREMITIES: Negative for clubbing, cyanosis, or edema. RECTAL/GENITAL: Refused. NEUROLOGIC: Cranial nerves II through XII are grossly intact without focal deficits. Motor strength is 5/5 bilaterally. Deep tendon reflexes are 2+ plantar. Assessment/Plan Problem List: (1) Nausea & vomiting Assessment & Plan: Resolved (2) Diabetes mellitus (3) Diabetic foot ulcer (4) CKD (chronic kidney disease) Assessment & Plan: await nephrology note. (5) Osteomyelitis Assessment & Plan: Left foot. S/P ceftriaxone-See ID note. (6) HTN (hypertension) (7) Peripheral vascular disease Assessment & Plan: Not a srugical candidate-see vascular surgery consult. Status: stable Ariel Marie MD Dec 03, 2017 11:50
[2017-12-03 12:00] VITALS: BP 142/89
--- NOTE | 2017-12-03 12:43 | Pulmonology Progress Note ---
Assessment/Plan Problems: (1) Sepsis (2) Diabetic foot ulcer (3) Diabetes mellitus (4) Diabetic nephropathy (5) Peripheral vascular disease (6) HTN (hypertension) Assessment/Plan vascular saw her, no intervention recommended for now ID evaluation pending continue abx, pt is afebrile improving check cultures continue abx wound care ID evaluation check electrolytes Subjective ROS Limited/Unobtainable: No Constitutional: Reports: no symptoms HEENT: Repors: no symptoms Respiratory: Reports: no symptoms Allergies: Coded Allergies: PENICILLINS (Verified Allergy, Severe, SWOLLEN BODY, 04/23/17) Per Daughter, patient has tolerated Amoxicillin Tolerated Ceftriaxone 04/22/17 Uncoded Allergies: Blood Transfusion (Adverse Reaction, Unknown, 06/29/17) Pt states that she develops lower extremity wounds after blood transfusions Objective Last 24 Hour Vital Signs Date Time Temp Pulse Resp B/P (MAP) Pulse Ox O2 Delivery O2 Flow Rate FiO2 12/03/17 09:00 Room Air 12/03/17 08:49 75 138/81 12/03/17 08:00 97.7 75 20 138/81 (100) 99 97.7 12/03/17 04:00 97.8 73 20 137/81 (99) 97 97.8 12/03/17 00:00 97.7 85 20 137/76 (96) 100 97.7 12/02/17 21:00 Room Air 12/02/17 20:00 97.7 80 20 131/79 (96) 98 97.7 12/02/17 16:00 97.7 77 20 132/83 (99) 95 97.7 Intake and Output 12/02/17 12/03/17 19:00 07:00 Intake Total 510 ml 890 ml Balance 510 ml 890 ml Intake Oral 510 ml 240 ml IV Total 650 ml # Voids 3 2 General Appearance: WD/WN HEENT: normocephalic, atraumatic Respiratory/Chest: chest wall non-tender, lungs clear Breasts: no masses Cardiovascular: normal rate Abdomen: soft, non tender Genitourinary: normal external genitalia Extremities: no clubbing Skin: no rash, no lesions Current Medications Medications (Trade) Dose Ordered Sig/Artemio Route PRN Reason Start Time Stop Time Status Last Admin Dose Admin Acetaminophen (Tylenol) 650 mg Q4H PRN ORAL Mild Pain (Pain Scale 1-3) 12/01/17 19:25 12/28/17 19:24 12/01/17 22:09 Acetaminophen (Tylenol) 650 mg Q4H PRN ORAL fever 12/01/17 19:25 12/28/17 19:24 Acetaminophen (Tylenol) 650 mg Q4H PRN RECTAL Mild Pain (Pain Scale 1-3) 12/01/17 19:24 12/28/17 19:23 Acetaminophen (Tylenol) 650 mg Q4H PRN RECTAL fever 12/01/17 19:25 12/28/17 19:24 Amlodipine Besylate (Norvasc) 10 mg DAILY ORAL 12/02/17 09:00 12/29/17 08:59 12/03/17 08:49 Aspirin (ASA) 81 mg DAILY ORAL 12/02/17 09:00 12/30/17 08:59 12/03/17 08:49 Atorvastatin Calcium (Lipitor) 20 mg BEDTIME ORAL 12/02/17 21:00 01/01/18 20:59 12/02/17 20:33 Ceftriaxone Sodium 1 gm/ Dextrose 50 ml @ 100 mls/hr DAILY IVPB 12/02/17 09:00 12/06/17 08:59 12/03/17 08:47 Clonidine HCl (Catapres Tab) 0.1 mg Q6H PRN ORAL sbp>160 12/01/17 19:25 12/28/17 19:24 Dextrose (Dextrose 50%) 25 ml Q30M PRN IV Hypoglycemia 12/01/17 19:26 12/28/17 19:25 Dextrose (Dextrose 50%) 50 ml Q30M PRN IV Hypoglycemia 12/01/17 19:26 12/28/17 19:25 Heparin Sodium (Porcine) (Heparin 5000 units/ml) 5,000 units EVERY 8 HOURS SUBQ 12/01/17 22:00 12/28/17 21:59 12/03/17 06:13 Insulin Aspart (NovoLOG) BEFORE MEALS AND HS SUBQ 12/01/17 21:00 12/29/17 06:29 12/03/17 12:06 Lorazepam (Ativan) 2 mg Q6H PRN ORAL For Anxiety 12/01/17 23:45 12/08/17 23:44 Nitroglycerin (Ntg) 0.4 mg Q5MIN X 3 DOSES PRN SL Prn Chest Pain 12/01/17 19:26 12/31/17 19:25 Ondansetron HCl (Zofran) 4 mg Q6H PRN IVP Nausea & Vomiting 12/01/17 19:27 12/28/17 19:26 Pantoprazole (Protonix) 40 mg DAILY ORAL 12/02/17 09:00 12/29/17 08:59 12/03/17 08:49 Sodium Chloride 1,000 ml @ 50 mls/hr Q20H IV 12/02/17 05:39 01/01/18 05:38 12/02/17 17:19 Tramadol HCl (Ultram) 25 mg DAILY ORAL 12/02/17 09:00 12/06/17 08:59 12/03/17 08:48 Tramadol HCl (Ultram) 50 mg Q6H PRN ORAL For Pain 12/01/17 19:27 12/05/17 19:26 Zinc Sulfate (Zinc Sulfate) 220 mg DAILY ORAL 12/02/17 09:00 12/29/17 08:59 12/03/17 08:49 Ruby Richmond MD Dec 03, 2017 12:43
--- NOTE | 2017-12-03 13:59 | General Surgery Progress Note ---
General Surgery-Progress Note Subjective Symptoms: improved, pain absent, tolerating diet, passing flatus Objective Last 24 Hour Vital Signs Date Time Temp Pulse Resp B/P (MAP) Pulse Ox O2 Delivery O2 Flow Rate FiO2 12/03/17 12:00 97.8 78 18 142/89 (106) 100 97.8 12/03/17 09:00 Room Air 12/03/17 08:49 75 138/81 12/03/17 08:00 97.7 75 20 138/81 (100) 99 97.7 12/03/17 04:00 97.8 73 20 137/81 (99) 97 97.8 12/03/17 00:00 97.7 85 20 137/76 (96) 100 97.7 12/02/17 21:00 Room Air 12/02/17 20:00 97.7 80 20 131/79 (96) 98 97.7 12/02/17 16:00 97.7 77 20 132/83 (99) 95 97.7 I&O Intake and Output 12/02/17 12/03/17 19:00 07:00 Intake Total 510 ml 890 ml Balance 510 ml 890 ml Intake Oral 510 ml 240 ml IV Total 650 ml # Voids 3 2 Dressing: saturated Wound: clean, other Drains: none Cardiovascular: RSR Respiratory: clear Abdomen: soft, flat, non-tender, present bowel sounds Extremities: other Plan Problems: (1) Sepsis Assessment & Plan: patient well known to me. left foot wounds significantly healed. likely still underlying tissue loss but no active infection noted right foot s/p amputation stable. possible enteritis which is resolving possible uti? Duplex studies noted. known peripheral vasculopathy. prior MRI with substantial tissue/bone disease. prior amputation recommended. appreciate vascular input. appreciate podiatry input -no acute surgical intervention necessary. -IV abx -okay for diet will follow with recs. thank you Sandro Ramirez Dec 03, 2017 13:59
[2017-12-03 16:00] VITALS: BP 128/79
--- NOTE | 2017-12-03 16:15 | Infectious Diseases Prog Note ---
Assessment/Plan Assessment/Plan ASSESSMENT: Sp Fever Leukocytosis, Sp Status post nausea, vomiting, diarrhea/gastroenteritis Urine culture negative Ro Probable bacteremia CKD. Diabetes. GERD. Osteomyelitis of left foot. History of right foot amputation PLAN: Cont DC Rocephin, ok to DC pt off of AB Rx Monitor CBC. Monitor BMP. Monitor cultures (blood). DC planning Subjective Allergies: Coded Allergies: PENICILLINS (Verified Allergy, Severe, SWOLLEN BODY, 04/23/17) Per Daughter, patient has tolerated Amoxicillin Tolerated Ceftriaxone 04/22/17 Uncoded Allergies: Blood Transfusion (Adverse Reaction, Unknown, 06/29/17) Pt states that she develops lower extremity wounds after blood transfusions Subjective possible DC Objective Vital Signs Last 24 Hour Vital Signs Date Time Temp Pulse Resp B/P (MAP) Pulse Ox O2 Delivery O2 Flow Rate FiO2 12/03/17 12:00 97.8 78 18 142/89 (106) 100 97.8 12/03/17 09:00 Room Air 12/03/17 08:49 75 138/81 12/03/17 08:00 97.7 75 20 138/81 (100) 99 97.7 12/03/17 04:00 97.8 73 20 137/81 (99) 97 97.8 12/03/17 00:00 97.7 85 20 137/76 (96) 100 97.7 12/02/17 21:00 Room Air 12/02/17 20:00 97.7 80 20 131/79 (96) 98 97.7 Height (Feet): 5 Height (Inches): 5.00 Weight (Pounds): 260 HEENT: mucous membranes moist Respiratory/Chest: no accessory muscle use Cardiovascular: no gallop/murmur Abdomen: no organomegaly Current Medications Medications (Trade) Dose Ordered Sig/Artemio Route PRN Reason Start Time Stop Time Status Last Admin Dose Admin Acetaminophen (Tylenol) 650 mg Q4H PRN ORAL Mild Pain (Pain Scale 1-3) 12/01/17 19:25 12/28/17 19:24 12/01/17 22:09 Acetaminophen (Tylenol) 650 mg Q4H PRN ORAL fever 12/01/17 19:25 12/28/17 19:24 Acetaminophen (Tylenol) 650 mg Q4H PRN RECTAL Mild Pain (Pain Scale 1-3) 12/01/17 19:24 12/28/17 19:23 Acetaminophen (Tylenol) 650 mg Q4H PRN RECTAL fever 12/01/17 19:25 12/28/17 19:24 Amlodipine Besylate (Norvasc) 10 mg DAILY ORAL 12/02/17 09:00 12/29/17 08:59 12/03/17 08:49 Aspirin (ASA) 81 mg DAILY ORAL 12/02/17 09:00 12/30/17 08:59 12/03/17 08:49 Atorvastatin Calcium (Lipitor) 20 mg BEDTIME ORAL 12/02/17 21:00 01/01/18 20:59 12/02/17 20:33 Ceftriaxone Sodium 1 gm/ Dextrose 50 ml @ 100 mls/hr DAILY IVPB 12/02/17 09:00 12/06/17 08:59 12/03/17 08:47 Clonidine HCl (Catapres Tab) 0.1 mg Q6H PRN ORAL sbp>160 12/01/17 19:25 12/28/17 19:24 Dextrose (Dextrose 50%) 25 ml Q30M PRN IV Hypoglycemia 12/01/17 19:26 12/28/17 19:25 Dextrose (Dextrose 50%) 50 ml Q30M PRN IV Hypoglycemia 12/01/17 19:26 12/28/17 19:25 Heparin Sodium (Porcine) (Heparin 5000 units/ml) 5,000 units EVERY 8 HOURS SUBQ 12/01/17 22:00 12/28/17 21:59 12/03/17 06:13 Insulin Aspart (NovoLOG) BEFORE MEALS AND HS SUBQ 12/01/17 21:00 12/29/17 06:29 12/03/17 12:06 Lorazepam (Ativan) 2 mg Q6H PRN ORAL For Anxiety 12/01/17 23:45 12/08/17 23:44 Nitroglycerin (Ntg) 0.4 mg Q5MIN X 3 DOSES PRN SL Prn Chest Pain 12/01/17 19:26 12/31/17 19:25 Ondansetron HCl (Zofran) 4 mg Q6H PRN IVP Nausea & Vomiting 12/01/17 19:27 12/28/17 19:26 Pantoprazole (Protonix) 40 mg DAILY ORAL 12/02/17 09:00 12/29/17 08:59 12/03/17 08:49 Sodium Chloride 1,000 ml @ 50 mls/hr Q20H IV 12/02/17 05:39 01/01/18 05:38 12/02/17 17:19 Tramadol HCl (Ultram) 25 mg DAILY ORAL 12/02/17 09:00 12/06/17 08:59 12/03/17 08:48 Tramadol HCl (Ultram) 50 mg Q6H PRN ORAL For Pain 12/01/17 19:27 12/05/17 19:26 Zinc Sulfate (Zinc Sulfate) 220 mg DAILY ORAL 12/02/17 09:00 12/29/17 08:59 12/03/17 08:49 Manuel Rubi MD Dec 03, 2017 16:15
--- NOTE | 2017-12-03 18:11 | General Progress Note ---
Assessment/Plan Status: stable, progressing Assessment/Plan MDD anxiety d/o DM ativan prn provided with ro/st Subjective Date patient seen: Dec 03, 2017 Neurologic/Psychiatric: Reports: anxiety, depressed, emotional problems Allergies: Coded Allergies: PENICILLINS (Verified Allergy, Severe, SWOLLEN BODY, 04/23/17) Per Daughter, patient has tolerated Amoxicillin Tolerated Ceftriaxone 04/22/17 Uncoded Allergies: Blood Transfusion (Adverse Reaction, Unknown, 06/29/17) Pt states that she develops lower extremity wounds after blood transfusions Objective Last 24 Hour Vital Signs Date Time Temp Pulse Resp B/P (MAP) Pulse Ox O2 Delivery O2 Flow Rate FiO2 12/03/17 16:00 98.1 77 18 128/79 (95) 100 12/03/17 12:00 97.8 78 18 142/89 (106) 100 97.8 12/03/17 09:00 Room Air 12/03/17 08:49 75 138/81 12/03/17 08:00 97.7 75 20 138/81 (100) 99 97.7 12/03/17 04:00 97.8 73 20 137/81 (99) 97 97.8 12/03/17 00:00 97.7 85 20 137/76 (96) 100 97.7 12/02/17 21:00 Room Air 12/02/17 20:00 97.7 80 20 131/79 (96) 98 97.7 Intake and Output 12/02/17 12/03/17 19:00 07:00 Intake Total 510 ml 890 ml Balance 510 ml 890 ml Intake Oral 510 ml 240 ml IV Total 650 ml # Voids 3 2 Height (Feet): 5 Height (Inches): 5.00 Weight (Pounds): 260 General Appearance: no apparent distress, alert Neurologic: depressed affect Remington Kimbrough MD Dec 03, 2017 18:11
--- NOTE | 2017-12-04 08:26 | Discharge Summary ---
Discharge Summary Discharge Summary _ DATE OF ADMISSION: 11/28/2017 DATE OF DISCHARGE: 12/03/2017 REASON FOR ADMISSION: 52 years old female with past medical history of hypertension, diabetes mellitus type 2, dysphagia, GERD, history of osteomyelitis ,status post treatment, chronic kidney disease, was sent from the senior care facility for fever , nausea and vomiting. Upon evaluation patient was febrile, tachycardic, blood pressure was elevated 162/85. Laboratory workup revealed leukocytosis, anemia ; chemistry showed evidence of renal failure with BUN 37 creatinine 2.6 . Magnesium 1.5, stable potassium. Troponin was negative. Urinalysis revealed evidence of probable UTI. Chest x-ray showed no acute cardiopulmonary pathology. Septic workup initiated . Patient started on broad-spectrum antibiotic. Patient admitted with diagnosis of sepsis, nausea and vomiting, possible gastroenteritis, possible UTI ,acute renal failure on chronic renal insufficiency, hypomagnesemia ,anemia, hypertension ,diabetes mellitus type 2, diabetic nephropathy, PVD with right toe amputation, obesity. CONSULTANTS: pulmonary Dr. Richmond ID specialist Dr. Rubi Vascular surgery Dr. Babin General surgery Dr. Ramirez Street Light Inspector Dr. Holly psychiatrist [facility] COURSE: Patient initially admitted to telemetry floor. Patient started on fluid resuscitation and intermittent broad-spectrum antibiotics. Infectious disease specialist closely followed. Blood culture were negative. Influenza screen test was negative. Urine culture revealed no growth. Supportive therapy with antiemetics and IV fluids provided. GI prophylaxis provided Patient status post nausea, vomiting, and abdominal discomfort, likely gastroenteritis. Patient was on antibiotics, while in the hospital. Leukocytosis resolved, no fevers. Infectious disease doctor cleared for discharge patient off antibiotic therapy. Surgeon seen and evaluated the patient . Patient status post metatarsal amputation , stable. No acute surgical intervention was necessary at this time. Arterial duplex bilateral extremity revealed moderate to severe calcific peripheral arterial disease. Street Light Inspector seen and evaluated the patient for left foot diabetic ulcer. Wound care provided as per diamond driller helper recommendations. No surgical intervention was indicated at this time . Per diamond driller helper, patient had severe peripheral vascular disease , and any surgical intervention on the lower extremity , likely end up in higher level of amputation. Vascular surgeon seen and evaluated patient. Vascular surgeon recommended continue left foot wound care as per diamond driller helper. Antiplatelet and statin therapy were continued with a DVT prophylaxis. Patient had a high risk for worsening renal failure with contrast angiogram. Patient had palpable femoral,popliteal , and left dorsalis pedis pulses +2 with adequate arterial perfusion,. Vascular surgeon recommended conservative treatment for left foot ulcer . Supplemental oxygen provided as needed to keep pulse oximetry above 92%; pulmonary toilet was on standby as needed. Blood pressure was managed with calcium channel luis a and clonidine was added as needed. Blood sugar was managed with sliding scale of insulin. Hemoglobin and hematocrit were closely monitored with goal to keep hemoglobin above 7. Anemia workup revealed anemia of chronic disease. Hemoglobin and hematocrit remained on the baseline. Renal parameters and electrolytes were closely monitored. Electrolytes corrected as needed. Nephrotoxins were avoided. Creatinine from 2.6 down to 2.3. Psychiatrist followed patient. Reality orientation supportive therapy provided. Psychiatrist optimized psychiatric medication regimen. Patient stabilized and was ready for discharge to the senior care facility for continuation of care. FINAL DIAGNOSES: Sepsis Gastroenteritis Acute renal failure on chronic kidney disease Diabetic nephropathy with chronic kidney disease Dehydration Calcific PAD Status post right transmetatarsal amputation Left diabetic foot ulcer Diabetes mellitus type 2 with diabetic neuropathy Obesity Former smoker History of osteomyelitis left lower extremity Major depressive disorder Anxiety DISCHARGE MEDICATIONS: See Medication Reconciliation list. DISCHARGE INSTRUCTIONS: Patient was discharged to the senior care facility. Follow up with medical doctor at the facility. Sarah Ring NP Dec 04, 2017 08:26
--- NOTE | 2017-12-05 00:30 | Consultation ---
DATE OF CONSULTATION: 12/02/2017 VASCULAR SURGERY CONSULTATION CONSULTING PHYSICIAN: Lucio Fish M.D. REFERRING PHYSICIAN: Ariel Marie M.D. REASON FOR EVALUATION: PAD. HISTORY OF PRESENT ILLNESS: This is a 52-year-old female who has been at this hospital several times. The patient has a history of right foot partial amputation as well as the left chronic foot wound. The patient has a strongly palpable left dorsalis pedis pulse. Duplex revealed a calcific PAD and vascular surgery is consulted for further evaluation. The patient currently has no other complaints. She has been seen by general surgery, podiatry service and several other consultants. PAST MEDICAL HISTORY: As above. History of osteomyelitis of the left foot, diabetes type 2 mellitus, chronic renal failure, diabetic nephropathy, gastroesophageal reflux disease, obesity, and osteomyelitis of the left foot. MEDICATION: See attached MAR. ALLERGIES: Penicillin. SOCIAL HISTORY: Resides in [facility]. Denies history of smoking, drugs, or alcohol abuse. FAMILY HISTORY: Unremarkable. REVIEW OF SYSTEMS: CARDIOVASCULAR: No history of chest pain or palpitations. PULMONARY: No cough. No hemoptysis. GASTROINTESTINAL: No history of abdominal pain, constipation, or diarrhea. GENITOURINARY: No urinary complaints. NEUROLOGIC: No history of strokes or seizures. PHYSICAL EXAMINATION: VITAL SIGNS: The patient is afebrile, 97.7, heart rate 70, blood pressure 127/74, and respirations 20. The patient has palpable radial pulses. No evidence of carotid bruits. LUNGS: Clear to auscultation. HEART: Regular rate and rhythm. ABDOMEN: Soft and nontender. EXTREMITIES: She has palpable femoral pulses. Palpable left popliteal pulse. Strongly palpable left dorsalis pedis pulse. There is a full-thickness ulceration noted in the distal right foot. There is no infection noted. On the left foot, there is a plantar aspect foot wound. There is no deep-seated infection. No acute infection noted. Feet are warm. No edema. There is a Chopart amputation on the right side. LABORATORY DATA: WBC of 5.5, hemoglobin 9.1 and platelet count 174,000. BUN 31 and creatinine 2.3. IMPRESSION: 1. Chronic left foot wound, slowly healing with 3+ palpable left dorsalis pedis pulse. 2. Calcific arterial occlusive disease with a history right foot Chopart amputation with a history of underlying osteomyelitis. 3. Diabetes mellitus, peripheral neuropathy, and obesity. PLAN AND RECOMMENDATIONS: 1. Foot wound care by Podiatry service. 2. Antibiotics per Infectious Disease service. 3. Continue decubitus and DVT precautions. 4. Antiplatelet and statin therapy. 5. Strict sugar control. 6. Weight loss. 7. The patient needs a close followup as an outpatient. Lucio Fish M.D. DR: BERKLEY JOB#: [id number] CC: Ariel Marie M.D.; Fax#: [phone] JADA MCKEON M.D. ; FAX#: [phone]
== END 2017-12-03 18:18 | DRG 872 ==
LOC: EDBD 17:03 → EMR 17:32 → EDBEDREQ 18:06 → 2E 18:25 → EDBEDREQ 20:39 → 4E 12-01 18:45
DX: A41.9 Sepsis, unspecified organism (principal); N39.0 Urinary tract infection, site not specified; N17.9 Acute kidney failure, unspecified; N18.4 Chronic kidney disease, stage 4 (severe); M86.8X7 Other osteomyelitis, ankle and foot; Z68.41 Body mass index [BMI] 40.0-44.9, adult; E86.0 Dehydration; Z88.0 Allergy status to penicillin; I12.9 Hypertensive chronic kidney disease with stage 1 through stage 4 chronic kidney disease, or unspecified chronic kidney disease; E11.22 Type 2 diabetes mellitus with diabetic chronic kidney disease; K21.9 Gastro-esophageal reflux disease without esophagitis; K52.9 Noninfective gastroenteritis and colitis, unspecified; I73.89 Other specified peripheral vascular diseases; Z89.431 Acquired absence of right foot; E11.621 Type 2 diabetes mellitus with foot ulcer; E11.40 Type 2 diabetes mellitus with diabetic neuropathy, unspecified; E66.9 Obesity, unspecified; F32.9 Major depressive disorder, single episode, unspecified; F41.9 Anxiety disorder, unspecified; R13.10 Dysphagia, unspecified; E83.42 Hypomagnesemia
CPT/HCPCS: 36415; 71045; 80048; 80053; 80061; 81003; 82270; 82378; 82550; 82553; 82607; 82728; 82746; 82962; 83540; 83550; 83605; 83690; 83735; 84100; 84484; 85007; 85025; 86710; 86850; 86900; 86901; 87040; 87081; 87086; 93005; 93925; 96361; 96365; 99285; J1815

== ENCOUNTER 2018-01-29 17:46 | Inpatient (IN) | payer MEDICARE, MEDICAID ==
[~2018-01-29] VITALS: Ht 162.6 cm; Wt 112.2 kg
[~2018-01-29 17:46] MED LIST changes: +AMLODIPINE BESY10 MG ORAL; +ASCORBIC ACID500 MG ORAL; +ASPIRIN81 MG ORAL; +LIPITOR20 MG ORAL; +LORATADINE10 M1 PO; +NOVOLOG100 UNIT/3 SUBQ; +PANTOPRAZOLE SO40 MG ORAL; +PROSTAT PO; +PROSTATE THERA1 EACH PO; +PROTONIX20 MG ORAL; +TRAMADOL HCL50 MG ORAL; +ZINC SULFATE220 M2 ORAL; +ZINC10 MG ORAL; +ZOFRAN ODT8 MG ORAL; +ZOFRAN4 M3 ORAL; +prostat
[2018-01-29 18:30] VITALS: BP 151/91
[2018-01-29 18:58] LABS: BASOPHILS % (AUTO) 0.9 % (0.0-2.0); EOSINOPHILS % (AUTO) 1.5 % (0.0-3.0); HEMATOCRIT 32.8 % (37.0-47.0); LYMPHOCYTES % (AUTO) 29.8 % (20.0-45.0); MEAN CORPUSCULAR VOLUME 87 FL (80-99); MONOCYTES % (AUTO) 7.7 % (1.0-10.0); NEUTROPHILS % (AUTO) 60.2 % (45.0-75.0); PLATELET COUNT 211 K/UL (150-450); RED BLOOD COUNT 3.78 M/UL (4.20-5.40); RED CELL DISTRIBUTION WIDTH 13.1 % (11.6-14.8); WHITE BLOOD COUNT 7.6 K/UL (4.8-10.8)
[2018-01-29 19:08] VITALS: BP 148/80
[2018-01-29 19:08] LABS: ANION GAP 10 mmol/L (5-15); BLOOD UREA NITROGEN 44 mg/dL (7-18); CALCIUM 9.4 MG/DL (8.5-10.1); CARBON DIOXIDE 24 MMOL/L (21-32); CHLORIDE 103 MMOL/L (98-107); CREATININE 2.8 MG/DL (0.55-1.30); POTASSIUM 4.5 MMOL/L (3.5-5.1); SODIUM 137 MMOL/L (136-145)
[2018-01-29 19:12] LABS: ALANINE AMINOTRANSFERASE 18 U/L (12-78); ALBUMIN/GLOBULIN RATIO 0.5 (1.0-2.7); ALKALINE PHOSPHATASE 102 U/L (46-116); ASPARTATE AMINO TRANSFERASE 8 U/L (15-37); BILIRUBIN,TOTAL 0.4 MG/DL (0.2-1.0)
[2018-01-29] MEDS ORDERED: Gadavist 7.5mMol/7.5ml vial IV PRN (19:45)
[2018-01-29] MEDS ORDERED: Milk of Magnesia 30ml Ud ORAL PRN (19:45)
[2018-01-29] MEDS ORDERED: Morphine Sulfate 2mg/ml Inj IVP PRN ×3 (19:45→22:15)
[2018-01-29] MEDS ORDERED: Mylanta II UD 30ml ORAL PRN (19:45)
[2018-01-29] MEDS ORDERED: Morphine Sulfate 4mg/ml Inj (IV/IM USE ONLY) IVP PRN (19:45)
--- NOTE | 2018-01-29 21:11 | Consultation ---
History of Present Illness General Date patient seen: Jan 29, 2018 Chief Complaint: General Complaint Present Illness HPI 52 year old female well known to me from prior admissions. Prior lower extremity infections requiring I&D, IV Abx, and wound care. Was suppose to see me for pre op and considerations of below knee amputation. During last encounter had severe infection that was slowly resolving and was recommended to have amputation if not improved with maximal medical / wound care. Has been followed by her wound care doctors as an outpatient. We has spoken on the phone to arrange for possible BKA and she was suppose to have pre op work up completed for considerations of elective BKA given history. She presented to hospital today for evaluation given worsening wound on leg. There were considerations for direct admission of active infection given the wound and worsening foul odor she had described but she went to ED at which time I was called to evaluate. patient seen, chart reviewed patient examined. states that since I have last seen her she had a distal amputation at outside facility. was doing well and walking with prosthetic but developed wound. Allergies: Coded Allergies: PENICILLINS (Verified Allergy, Severe, SWOLLEN BODY, 04/23/17) Per Daughter, patient has tolerated Amoxicillin Tolerated Ceftriaxone 04/22/17 Uncoded Allergies: Blood Transfusion (Adverse Reaction, Unknown, 06/29/17) Pt states that she develops lower extremity wounds after blood transfusions Medication History Scheduled Amlodipine Besylate* (Amlodipine Besylate*), 10 MG ORAL DAILY, (Reported) Ascorbic Acid* (Ascorbic Acid*), 500 MG ORAL TWICE A DAY, (Reported) Aspirin* (Aspirin*), 81 MG ORAL DAILY Atorvastatin Calcium* (Lipitor*), 20 MG ORAL BEDTIME Ferrous Sulfate* (Ferrous Sulfate*), 325 MG ORAL DAILY, (Reported) Folic Acid* (Folic Acid*), 1 MG ORAL DAILY, (Reported) Insulin Aspart* (Novolog*), 6 UNITS SUBQ THREE TIMES A DAY, (Reported) Insulin Detemir (Levemir Flexpen), 15 UNITS SUBQ Q12HR Zinc Sulfate (Zinc Sulfate), 220 MG ORAL DAILY, (Reported) [PROSTAT liq], 30 ML PO BID, (Reported) Scheduled PRN Insulin Aspart* (Novolog*), 0 SUBQ BEDTIME PRN for PER SLIDING SCALE, ( Reported) Ondansetron* (Zofran*), 4 MG ORAL Q6H PRN for Nausea & Vomiting, (Reported) Pantoprazole* (Pantoprazole*), 40 MG ORAL DAILY PRN for GIT PPX, (Reported) Tramadol Hcl* (Ultram*), 50 MG ORAL Q6H PRN for For Pain, (Reported) Tramadol Hcl* (Ultram*), 25 MG ORAL 30-45 minutes PRN for BEFORE WOUND CLEANING, (Reported) Miscellaneous Medications Loratadine (Loratadine), 10 MG PO, (Reported) Patient History History Provided By: Patient, Medical Record, PMD Healthcare decision maker Resuscitation status Advanced Directive on File Past Medical/Surgical History Past Medical/Surgical History: (1) Sepsis (2) Diabetes mellitus (3) Diabetic nephropathy (4) Osteomyelitis (5) Anemia in chronic kidney disease (6) CKD (chronic kidney disease) (7) Leg ulcer, left (8) Bacteremia (9) Fungemia (10) Diabetic foot ulcer (11) HTN (hypertension) (12) Nausea & vomiting (13) Peripheral vascular disease Review of Systems All Other Systems: negative except mentioned in HPI Physical Exam General Appearance: alert Lines, tubes and drains: peripheral HEENT: mucous membranes moist Neck: normal inspection Respiratory/Chest: normal breath sounds Cardiovascular/Chest: regular rhythm Abdomen: soft, no organomegaly, no mass Extremities: other Skin Exam: warm/dry Neurologic: alert, oriented x 3 Last 24 Hour Vital Signs Date Time Temp Pulse Resp B/P (MAP) Pulse Ox O2 Delivery O2 Flow Rate FiO2 01/29/18 19:08 97.7 81 18 148/80 100 Room Air 01/29/18 18:30 81 12 Room Air 01/29/18 18:30 98.0 81 12 151/91 100 Room Air 01/29/18 18:14 98.1 84 18 137/78 98 Room Air Laboratory Tests Test 01/29/18 18:40 White Blood Count 7.6 K/UL (4.8-10.8) Red Blood Count 3.78 M/UL (4.20-5.40) L Hemoglobin 10.0 G/DL (12.0-16.0) L Hematocrit 32.8 % (37.0-47.0) L Mean Corpuscular Volume 87 FL (80-99) Mean Corpuscular Hemoglobin 26.4 PG (27.0-31.0) L Mean Corpuscular Hemoglobin Concent 30.4 G/DL (32.0-36.0) L Red Cell Distribution Width 13.1 % (11.6-14.8) Platelet Count 211 K/UL (150-450) Mean Platelet Volume 8.2 FL (6.5-10.1) Neutrophils (%) (Auto) 60.2 % (45.0-75.0) Lymphocytes (%) (Auto) 29.8 % (20.0-45.0) Monocytes (%) (Auto) 7.7 % (1.0-10.0) Eosinophils (%) (Auto) 1.5 % (0.0-3.0) Basophils (%) (Auto) 0.9 % (0.0-2.0) Prothrombin Time 10.9 SEC (9.30-11.50) Prothromb Time International Ratio 1.0 (0.9-1.1) Activated Partial Thromboplast Time 32 SEC (23-33) Sodium Level 137 MMOL/L (136-145) Potassium Level 4.5 MMOL/L (3.5-5.1) Chloride Level 103 MMOL/L (98-107) Carbon Dioxide Level 24 MMOL/L (21-32) Anion Gap 10 mmol/L (5-15) Blood Urea Nitrogen 44 mg/dL (7-18) H Creatinine 2.8 MG/DL (0.55-1.30) H Estimat Glomerular Filtration Rate 21.3 mL/min (>60) Glucose Level 379 MG/DL (74-106) H Calcium Level 9.4 MG/DL (8.5-10.1) Total Bilirubin 0.4 MG/DL (0.2-1.0) Aspartate Amino Transf (AST/SGOT) 8 U/L (15-37) L Alanine Aminotransferase (ALT/SGPT) 18 U/L (12-78) Alkaline Phosphatase 102 U/L (46-116) Total Protein 8.7 G/DL (6.4-8.2) H Albumin 3.0 G/DL (3.4-5.0) L Globulin 5.7 g/dL Albumin/Globulin Ratio 0.5 (1.0-2.7) L Height (Feet): 5 Height (Inches): 4.00 Weight (Pounds): 248 Medications Current Medications Medications (Trade) Dose Ordered Sig/Artemio Route PRN Reason Start Time Stop Time Status Last Admin Dose Admin Acetaminophen (Tylenol) 650 mg Q4H PRN ORAL fever 01/29/18 19:45 02/28/18 19:44 Al Hydroxide/Mg Hydroxide (Mylanta II) 30 ml Q6H PRN ORAL dyspepsia 01/29/18 19:45 02/28/18 19:44 Dextrose (Dextrose 50%) 25 ml Q30M PRN IV Hypoglycemia 01/29/18 19:45 02/28/18 19:44 Dextrose (Dextrose 50%) 50 ml Q30M PRN IV Hypoglycemia 01/29/18 19:45 02/28/18 19:44 Dextrose/Sodium Chloride 1,000 ml @ 75 mls/hr [id number] IV 01/29/18 20:34 02/28/18 20:33 Diphenhydramine HCl (Benadryl) 25 mg Q6H PRN ORAL Itching/Pruritis 01/29/18 19:45 02/28/18 19:44 Docusate Sodium (Colace) 100 mg EVERY 12 HOURS ORAL 01/29/18 21:00 02/28/18 20:59 Gadobutrol (Gadavist) 7.5 mmol NOW PRN IV Radiology Procedure 01/29/18 19:45 02/02/18 19:34 Magnesium Hydroxide (Mom) 30 ml HSPRN PRN ORAL Constipation 01/29/18 19:45 02/28/18 19:44 Morphine Sulfate (Morphine Sulfate) 1 mg Q3H PRN IVP Mild Pain (Pain Scale 1-3) 01/29/18 19:45 02/05/18 19:44 Morphine Sulfate (Morphine Sulfate) 2 mg Q3H PRN IVP Moderate Pain (Pain Scale 4-6) 01/29/18 19:45 02/05/18 19:44 Morphine Sulfate (Morphine Sulfate) 4 mg Q3H PRN IVP Severe Pain (Pain Scale 7-10) 01/29/18 19:45 02/05/18 19:44 Ondansetron HCl (Zofran) 4 mg Q6H PRN IVP Nausea & Vomiting 01/29/18 19:45 02/28/18 19:44 Temazepam (Restoril) 15 mg HSPRN PRN ORAL Insomnia 01/29/18 19:45 02/05/18 19:44 Assessment/Plan Problem List: (1) Diabetic foot ulcer Assessment & Plan: Patient has history of large foot ulcers and prior infections/abscess requiring I&D. she has poorly controlled DM and in the past has had issues with distal feet. I have performed I&D on her in the past and extensive wound care to salvage extremity. She has been in rehab for some time now and being cared for there by wound team. 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 States was doing well and walking with prosthetic but developed large ulcer which is now foul smelling and draining. I have considered BKA in the past for her but will hold currently given medical condition. she presents to ED with elevated glucose levels and renal insufficiency. wound is a large distal midfoot ulcer with possible underlying infection -Admit for further work up of infection and medical management -will hold off on surgery for now -okay for diet -Abx -MRI ordered thank you. will follow with recs. ICD Codes: E11.621 - Type 2 diabetes mellitus with foot ulcer; L97.509 - Non- pressure chronic ulcer of other part of unspecified foot with unspecified severity SNOMED: [id number] Sandro Ramirez Jan 29, 2018 21:11
[2018-01-29 22:05] VITALS: BP 150/77
[2018-01-29] MEDS ORDERED: Albuterol/Ipratropium 3ml neb HHN PRN (22:15)
[2018-01-29] MEDS ORDERED: Miralax 17gm pkt ORAL PRN (22:15)
[2018-01-29] MEDS ORDERED: Nitroglycerin Subl 0.4mg tab SL PRN (22:15)
[2018-01-29 22:30] VITALS: BP 147/87
[2018-01-29] MEDS ORDERED: Cefepime 1gm vial ONE (23:41)
[2018-01-29] MEDS: D5NS 1,000 ML IV SCH (23:46)
[2018-01-29] MEDS: Heparin 5000 units/ml inj SUBQ SCH (23:46)
[2018-01-29] MEDS: Cefepime HCl 1 GM in D5W 110 ML IVPB SCH (23:47)
[2018-01-29] MEDS: Docusate 100mg cap ORAL SCH (23:47)
[2018-01-30] MEDS ORDERED: Vancomycin 0.75 GM in D5W 275 ML IVPB SCH (00:30)
[2018-01-30 04:00] VITALS: BP 127/57
[2018-01-30] MEDS: NovoLOG Insulin Flexpen SUBQ SCH ×5 (06:06→21:00)
[2018-01-30 07:01] LABS: INR 1.1 (0.9-1.1)
[2018-01-30 07:04] LABS: ALANINE AMINOTRANSFERASE 16 U/L (12-78); ALBUMIN 2.7 G/DL (3.4-5.0); ALBUMIN/GLOBULIN RATIO 0.5 (1.0-2.7); ALKALINE PHOSPHATASE 91 U/L (46-116); ANION GAP 9 mmol/L (5-15); ASPARTATE AMINO TRANSFERASE 7 U/L (15-37); BILIRUBIN,TOTAL 0.3 MG/DL (0.2-1.0); BLOOD UREA NITROGEN 41 mg/dL (7-18); CALCIUM 8.9 MG/DL (8.5-10.1); CARBON DIOXIDE 23 MMOL/L (21-32); CHLORIDE 105 MMOL/L (98-107); CHOLESTEROL 124 MG/DL (< 200); CREATININE 2.6 MG/DL (0.55-1.30); HDL CHOLESTEROL 50 MG/DL (40-60); POTASSIUM 4.4 MMOL/L (3.5-5.1); SODIUM 137 MMOL/L (136-145); TRIGLYCERIDES 61 MG/DL (30-150)
[2018-01-30 07:11] LABS: BASOPHILS % (AUTO) 0.9 % (0.0-2.0); EOSINOPHILS % (AUTO) 1.3 % (0.0-3.0); HEMATOCRIT 30.1 % (37.0-47.0); HEMOGLOBIN 9.3 G/DL (12.0-16.0); LYMPHOCYTES % (AUTO) 29.1 % (20.0-45.0); MEAN CORPUSCULAR VOLUME 87 FL (80-99); MONOCYTES % (AUTO) 8.4 % (1.0-10.0); NEUTROPHILS % (AUTO) 60.2 % (45.0-75.0); PLATELET COUNT 201 K/UL (150-450); RED BLOOD COUNT 3.47 M/UL (4.20-5.40); RED CELL DISTRIBUTION WIDTH 12.7 % (11.6-14.8); WHITE BLOOD COUNT 6.8 K/UL (4.8-10.8)
[2018-01-30 08:00] VITALS: BP 150/88
--- NOTE | 2018-01-30 08:09 | Emergency Room Report ---
History of Present Illness General Chief Complaint: General Complaint Source: Patient, Medical Record, PMD Present Illness HPI Patient is a 52-year-old female who presented after increased discomfort to her right lower extremity. Patient had previously had a metatarsal amputation. Patient had prior history of osteomyelitis and had chronic nonhealing wound. Patient was noted to have increased drainage. Patient had previously been told that she had some vascular insufficiency to her right lower extremity was noted to have type 2 diabetes. Patient had not been having any fever. She reports having continued discomfort to that area. She states her blood sugars have been somewhat elevated due to recently eating icing from gingerbread cookies. Allergies: Coded Allergies: PENICILLINS (Verified Allergy, Severe, SWOLLEN BODY, 04/23/17) Per Daughter, patient has tolerated Amoxicillin Tolerated Ceftriaxone 04/22/17 Uncoded Allergies: Blood Transfusion (Adverse Reaction, Unknown, 06/29/17) Pt states that she develops lower extremity wounds after blood transfusions Patient History Past Medical History: see triage record Past Surgical History: other - Metatarsal amputation right leg Reviewed Nursing Documentation: PMH: Agreed; PSxH: Agreed Nursing Documentation-PMH Past Medical History: No History, Except For Hx Hypertension: Yes Hx Diabetes: Yes Hx Cancer: No Hx Gastrointestinal Problems: Yes Hx Neurological Problems: No Review of Systems All Other Systems: negative except mentioned in HPI Physical Exam Vital Signs Date Time Temp Pulse Resp B/P (MAP) Pulse Ox O2 Delivery O2 Flow Rate FiO2 01/29/18 18:14 98.1 84 18 137/78 98 Room Air Sp02 EP Interpretation: reviewed, normal General Appearance: normal inspection, well appearing, no apparent distress, alert, Chronically Ill Head: atraumatic ENT: normal ENT inspection, hearing grossly normal, normal voice Neck: normal inspection, full range of motion, supple, no bony tend Respiratory: normal inspection, lungs clear, normal breath sounds, no respiratory distress, no retraction, no wheezing Cardiovascular #1: regular rate, rhythm, no edema Gastrointestinal: normal inspection, normal bowel sounds, non tender, soft, no guarding, no hernia Genitourinary: no CVA tenderness Musculoskeletal: normal inspection, back normal, swelling, other - Foul- smelling drainage to the right lower extremity plantar aspect dressing is saturated with greenish material. Neurologic: normal inspection, alert, oriented x3, responsive, labor relations officer III-XII nml as tested, speech normal Psychiatric: normal inspection, judgement/insight normal, mood/affect normal Skin: no rash, other - right side plantar ulcer Medical Decision Making Diagnostic Impression: Primary Impression: Diabetes mellitus Additional Impressions: Osteomyelitis Peripheral vascular disease Diabetic foot ulcer ER Course Patient presented for increased right lower extremity wound drainage. Differential diagnosis includes but is not limited to osteomyelitis, cellulitis , vascular insufficiency, uncontrolled diabetes among others. Because of complexity of patient's case laboratory testing and imaging studies were ordered. Patient was noted to have markedly elevated Accu-Chek. Patient was started on IV fluids. Dr. Ramirez was contacted for surgical consult. Patient was noted to have some decreased perfusion to her right lower extremity. Patient had previous been told that she needed a amputation. Patient will be admitted for further management of diabetes and IV antibiotics. Patient does not appear to be septic at this time. Dr. Tobin Albert was contacted for inpatient management Labs Test 01/30/18 05:10 White Blood Count 6.8 K/UL (4.8-10.8) Red Blood Count 3.47 M/UL (4.20-5.40) Hemoglobin 9.3 G/DL (12.0-16.0) Hematocrit 30.1 % (37.0-47.0) Mean Corpuscular Volume 87 FL (80-99) Mean Corpuscular Hemoglobin 26.9 PG (27.0-31.0) Mean Corpuscular Hemoglobin Concent 31.0 G/DL (32.0-36.0) Red Cell Distribution Width 12.7 % (11.6-14.8) Platelet Count 201 K/UL (150-450) Mean Platelet Volume 8.5 FL (6.5-10.1) Neutrophils (%) (Auto) 60.2 % (45.0-75.0) Lymphocytes (%) (Auto) 29.1 % (20.0-45.0) Monocytes (%) (Auto) 8.4 % (1.0-10.0) Eosinophils (%) (Auto) 1.3 % (0.0-3.0) Basophils (%) (Auto) 0.9 % (0.0-2.0) Prothrombin Time 11.1 SEC (9.30-11.50) Prothromb Time International Ratio 1.1 (0.9-1.1) Activated Partial Thromboplast Time 31 SEC (23-33) Sodium Level 137 MMOL/L (136-145) Potassium Level 4.4 MMOL/L (3.5-5.1) Chloride Level 105 MMOL/L (98-107) Carbon Dioxide Level 23 MMOL/L (21-32) Anion Gap 9 mmol/L (5-15) Blood Urea Nitrogen 41 mg/dL (7-18) Creatinine 2.6 MG/DL (0.55-1.30) Estimat Glomerular Filtration Rate 23.3 mL/min (>60) Glucose Level 325 MG/DL (74-106) Hemoglobin A1c 10.0 % (4.3-6.0) Calcium Level 8.9 MG/DL (8.5-10.1) Total Bilirubin 0.3 MG/DL (0.2-1.0) Aspartate Amino Transf (AST/SGOT) 7 U/L (15-37) Alanine Aminotransferase (ALT/SGPT) 16 U/L (12-78) Alkaline Phosphatase 91 U/L (46-116) Total Protein 8.0 G/DL (6.4-8.2) Albumin 2.7 G/DL (3.4-5.0) Globulin 5.3 g/dL Albumin/Globulin Ratio 0.5 (1.0-2.7) Triglycerides Level 61 MG/DL (30-150) Cholesterol Level 124 MG/DL (< 200) LDL Cholesterol 74 mg/dL (<100) HDL Cholesterol 50 MG/DL (40-60) Cholesterol/HDL Ratio 2.5 (3.3-4.4) Last Vital Signs Date Time Temp Pulse Resp B/P (MAP) Pulse Ox O2 Delivery O2 Flow Rate FiO2 01/30/18 04:00 99.2 87 18 127/57 (80) 96 01/30/18 00:46 Room Air Status: improved Disposition: ADMITTED INPATIENT Condition: Stable Referrals: Tobin Albert MD (PCP) Carlos Holman MD Jan 30, 2018 08:09
[2018-01-30] MEDS: Docusate 100mg cap ORAL SCH ×2 (08:24→17:09)
[2018-01-30] MEDS: Heparin 5000 units/ml inj SUBQ SCH ×2 (08:32→21:29)
[2018-01-30] MEDS: D5NS 1,000 ML IV SCH (09:54)
--- NOTE | 2018-01-30 10:50 | Diagnostic Imaging Report ---
Indication: Status post toe amputation. Open draining wound right foot Technique: Axial, sagittal, coronal T 1 fast spin echo and fast spin echo STIR images of the hindfoot Comparison: Right foot radiograph dated 05/13/2011 Findings: Patient is status post amputation of all of the toes. This is at the level of the proximal metatarsals. There is diffuse edema of the skin overlying the stump. There is diffuse edema of the subcutaneous fat of the lateral ankle. In the subcutaneous plantar fat in the heel region, there is a discrete fluid collection which measures approximately 5.1 cm transverse by 2.1 cm AP by 1.3 cm in thickness, and is concerning for an abscess collection. Another small fluid collection is seen medial to the calcaneus, measures 1.8 cm craniocaudad by 1.2 cm transverse by 5.2 cm AP. A small collection is seen immediately anterior to this, may be a locule of the same collection There is a very small first metatarsal stump still present. This demonstrates high STIR and decreased T1 signal. There is a small second metatarsal stump still present. This demonstrates increased STIR and subtle slightly decreased T1 signal at the distal edge of the stump at the amputation margin. A small third metatarsal stump demonstrates diffuse and strikingly increased STIR and decreased T1 signal. Fourth and fifth metatarsal stumps likewise demonstrate markedly increased STIR and markedly decreased T1 signal. There is suggestion of subtle increased STIR and decreased T1 signal within the lateral cuneiform. Signal within the medial and middle cuneiforms appears normal, as does signal within the cuboid, navicular, calcaneus, and talus. The calcaneal and other large tendons appear to be intact Impression: Postsurgical changes of the right foot, as described Signal abnormality of all 5 metatarsal stumps. Unless the amputation with very recent, (in which case signal abnormality could be reactive), findings are worrisome for osteomyelitis. Subtle signal abnormality of the lateral cuneiform, could indicate early osteomyelitis 5.1 x 2.1 x 1.3 cm fluid collection in the superficial posterior plantar fat. This is concerning for an abscess. 1.8 x 1.2 x 5.2 cm fluid collection medial to the anterior calcaneus within the deep subcutaneous fat, likewise concerning for abscess. There is a small collection which appears related to this but separate immediately anterior
[2018-01-30] MEDS: Cefepime HCl 1 GM in D5W 110 ML IVPB SCH (11:50)
[2018-01-30 12:00] VITALS: BP 158/91
--- NOTE | 2018-01-30 12:14 | General Surgery Progress Note ---
General Surgery-Progress Note Subjective Additional Comments no acute events. doing well. Objective Last 24 Hour Vital Signs Date Time Temp Pulse Resp B/P (MAP) Pulse Ox O2 Delivery O2 Flow Rate FiO2 01/30/18 09:53 88 18 Room Air 21 01/30/18 08:00 98.9 88 20 150/88 (108) 99 01/30/18 04:00 99.2 87 18 127/57 (80) 96 01/30/18 00:46 Room Air 01/29/18 22:30 99.2 87 20 147/87 (107) 99 01/29/18 22:05 97.4 81 18 150/77 100 Room Air 79 01/29/18 22:05 97.4 79 18 150/77 100 Room Air 01/29/18 19:08 97.7 81 18 148/80 100 Room Air 01/29/18 18:30 81 12 Room Air 01/29/18 18:30 98.0 81 12 151/91 100 Room Air 01/29/18 18:14 98.1 84 18 137/78 98 Room Air I&O Intake and Output 01/29/18 01/30/18 19:00 07:00 Intake Total 701.6 ml Balance 701.6 ml Intake IV Total 701.6 ml # Voids 1 4 # Bowel Movements 1 Dressing: saturated Wound: other Drains: other Cardiovascular: RSR Respiratory: clear Abdomen: soft, flat, non-tender, present bowel sounds Extremities: other Laboratory Tests Test 01/29/18 18:40 01/30/18 05:10 White Blood Count 7.6 K/UL (4.8-10.8) 6.8 K/UL (4.8-10.8) Red Blood Count 3.78 M/UL (4.20-5.40) L 3.47 M/UL (4.20-5.40) L Hemoglobin 10.0 G/DL (12.0-16.0) L 9.3 G/DL (12.0-16.0) L Hematocrit 32.8 % (37.0-47.0) L 30.1 % (37.0-47.0) L Mean Corpuscular Volume 87 FL (80-99) 87 FL (80-99) Mean Corpuscular Hemoglobin 26.4 PG (27.0-31.0) L 26.9 PG (27.0-31.0) L Mean Corpuscular Hemoglobin Concent 30.4 G/DL (32.0-36.0) L 31.0 G/DL (32.0-36.0) L Red Cell Distribution Width 13.1 % (11.6-14.8) 12.7 % (11.6-14.8) Platelet Count 211 K/UL (150-450) 201 K/UL (150-450) Mean Platelet Volume 8.2 FL (6.5-10.1) 8.5 FL (6.5-10.1) Neutrophils (%) (Auto) 60.2 % (45.0-75.0) 60.2 % (45.0-75.0) Lymphocytes (%) (Auto) 29.8 % (20.0-45.0) 29.1 % (20.0-45.0) Monocytes (%) (Auto) 7.7 % (1.0-10.0) 8.4 % (1.0-10.0) Eosinophils (%) (Auto) 1.5 % (0.0-3.0) 1.3 % (0.0-3.0) Basophils (%) (Auto) 0.9 % (0.0-2.0) 0.9 % (0.0-2.0) Prothrombin Time 10.9 SEC (9.30-11.50) 11.1 SEC (9.30-11.50) Prothromb Time International Ratio 1.0 (0.9-1.1) 1.1 (0.9-1.1) Activated Partial Thromboplast Time 32 SEC (23-33) 31 SEC (23-33) Sodium Level 137 MMOL/L (136-145) 137 MMOL/L (136-145) Potassium Level 4.5 MMOL/L (3.5-5.1) 4.4 MMOL/L (3.5-5.1) Chloride Level 103 MMOL/L (98-107) 105 MMOL/L (98-107) Carbon Dioxide Level 24 MMOL/L (21-32) 23 MMOL/L (21-32) Anion Gap 10 mmol/L (5-15) 9 mmol/L (5-15) Blood Urea Nitrogen 44 mg/dL (7-18) H 41 mg/dL (7-18) H Creatinine 2.8 MG/DL (0.55-1.30) H 2.6 MG/DL (0.55-1.30) H Estimat Glomerular Filtration Rate 21.3 mL/min (>60) 23.3 mL/min (>60) Glucose Level 379 MG/DL (74-106) H 325 MG/DL (74-106) H Calcium Level 9.4 MG/DL (8.5-10.1) 8.9 MG/DL (8.5-10.1) Total Bilirubin 0.4 MG/DL (0.2-1.0) 0.3 MG/DL (0.2-1.0) Aspartate Amino Transf (AST/SGOT) 8 U/L (15-37) L 7 U/L (15-37) L Alanine Aminotransferase (ALT/SGPT) 18 U/L (12-78) 16 U/L (12-78) Alkaline Phosphatase 102 U/L (46-116) 91 U/L (46-116) Total Protein 8.7 G/DL (6.4-8.2) H 8.0 G/DL (6.4-8.2) Albumin 3.0 G/DL (3.4-5.0) L 2.7 G/DL (3.4-5.0) L Globulin 5.7 g/dL 5.3 g/dL Albumin/Globulin Ratio 0.5 (1.0-2.7) L 0.5 (1.0-2.7) L Hemoglobin A1c 10.0 % (4.3-6.0) H Triglycerides Level 61 MG/DL (30-150) Cholesterol Level 124 MG/DL (< 200) LDL Cholesterol 74 mg/dL (<100) HDL Cholesterol 50 MG/DL (40-60) Cholesterol/HDL Ratio 2.5 (3.3-4.4) L Plan Problems: (1) Diabetic foot ulcer Assessment & Plan: Patient has history of large foot ulcers and prior infections/abscess requiring I&D. she has poorly controlled DM and in the past has had issues with distal feet. I have performed I&D on her in the past and extensive wound care to salvage extremity. She has been in rehab for some time now and being cared for there by wound team. 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 States was doing well and walking with prosthetic but developed large ulcer which is now foul smelling and draining. I have considered BKA in the past for her but will hold currently given medical condition. she presents to ED with elevated glucose levels and renal insufficiency. wound is a large distal midfoot ulcer with possible underlying infection -will review MRI findings with patient -will hold off on surgery for now -okay for diet -Abx thank you. will follow with [place]. Sandro Ramirez Jan 30, 2018 12:14
--- NOTE | 2018-01-30 13:22 | Consultation ---
Consult Note Consult Note Asked to eval for renal failure- HPI Patient is a 52-year-old female who presented after increased discomfort to her right lower extremity. Patient had previously had a metatarsal amputation. Patient had prior history of osteomyelitis and had chronic nonhealing wound. Patient was noted to have increased drainage. Patient had previously been told that she had some vascular insufficiency to her right lower extremity was noted to have type 2 diabetes. Patient had not been having any fever. She reports having continued discomfort to that area. She states her blood sugars have been somewhat elevated due to recently eating icing from gingerbread cookies. Allergies: Coded Allergies: PENICILLINS (Verified Allergy, Severe, SWOLLEN BODY, 04/23/17) Per Daughter, patient has tolerated Amoxicillin Tolerated Ceftriaxone 04/22/17 Uncoded Allergies: Blood Transfusion (Adverse Reaction, Unknown, 06/29/17) Pt states that she develops lower extremity wounds after blood transfusions Past Medical History: No History, Except For Hx Hypertension: Yes Hx Diabetes: Yes Hx Gastrointestinal Problems: Yes data reviewed interviewed examined Assessment/Plan Renal failure- Likely Diabetic nephropathy HTN PVD Diabetic foot ulcers / Osteo Anemia of CKD Multiple allergies No Ua available Avoid nephrotoxics GARRISON kidney 2D echo Anemia li Monitor renal parameters Per orders Surgery note: 1) Diabetic foot ulcer Assessment & Plan: Patient has history of large foot ulcers and prior infections/abscess requiring I&D. she has poorly controlled DM and in the past has had issues with distal feet. I have performed I&D on her in the past and extensive wound care to salvage extremity. She has been in rehab for some time now and being cared for there by wound team. 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 States was doing well and walking with prosthetic but developed large ulcer which is now foul smelling and draining. I have considered BKA in the past for her but will hold currently given medical condition. she presents to ED with elevated glucose levels and renal insufficiency. wound is a large distal midfoot ulcer with possible underlying infection Wing Valadez MD Jan 30, 2018 13:21
--- NOTE | 2018-01-30 14:17 | History & Physical ---
History and Physical History & Physicial Tobin Albert MD Jan 30, 2018 14:17
[2018-01-30 16:00] VITALS: BP 147/97
--- NOTE | 2018-01-30 17:03 | Consultation ---
History of Present Illness General Date patient seen: Jan 30, 2018 Chief Complaint: General Complaint Present Illness HPI 52 y/o F with hx of HTN, Dm2, GERD, CKD st 4, diabetic ulcers BLE, MDD, anxiety, s/p R foot metatarsal amputation, hx of LLE cellulitis/large abscess/OM s/p bedside I+D c/w polymicrobial bacteremia and fungemia April 2017 s/p Rx presents to ED on 01/29 with RLE discomfort and increased drainage Denied fever REcently admitted on November 2017 for nausea, vomiting and fever. 12/03 ASSESSMENT: Sp Fever Leukocytosis, Sp Status post nausea, vomiting, diarrhea/gastroenteritis Urine culture negative Ro Probable bacteremia CKD. Diabetes. GERD. Osteomyelitis of left foot. History of right foot amputation PLAN: Cont DC Rocephin, ok to DC pt off of AB Rx Monitor CBC. Monitor BMP. Monitor cultures (blood). DC planning 07/04 Assessment: Diabetic foot ulcers- worsening w/ New L foot ulceration c/w abscess, worsening and extensive OM despite previous appropriate medical tx (I+D, and prolonged IV abx tx) - -prior L lateral ankle wound healing -s/p I+D L medial ankle abscess 07/01 -OR findings: area of max fluctuance: abscess cavity with 25-50cc pus ; medial left distal leg/ankle: abscess cavity 10cm x 5cm and down to bone. no other tracking noted. -cx NTD -MRI L Foot 06/30: Abnormal fluid collection in the medial aspect of the ankle measuring approximately 4x 1.7 x 12 cm suspicious for abscess. Evidence of progressively worsening signal alteration presumably osteomyelitis involving bilateral malleolus regions, distal tibia plafond, talus and possibly the upper part of the calcaneus. -wound cx Neg -A. duplex done here: no significant stenosis or occlusion -a. duplex at [facility]: mild stenosis in left superficial femoral artery, left popliteal artery, monophasic -06/30 ESR 104, CRP 3.5 (decreased from prior) -Bcx NTD Afebrile, no leukocytosis Hx of Sepsis 2ry to L Leg cellulitis., large abscess (polymicrobial), infected ankle wound and OM c/w polymicrobial bacteremia and fungemia April 2017, s/p Rx -MRI L leg: Positive for osteomyelitis of the distal fibula, with evidence of bony destruction. More subtle marrow changes as described in the talus and calcaneus, also suspicious for osteomyelitis. Evidence of soft tissue cellulitis both laterally and medially. No drainable abscess. Abnormal peroneus longus tendon, may indicate inflammation or infection. Possible damage to the distal peroneus brevis tendon - s/p bedside I+D 04/23: large abscess in left distal lateral leg down to muscle and tendon. large area of fluctuance. 50-75cc of pus evacuated; wound cx +1 K.pna (grissom S), +4 E. fecalis (grissom S) -Xray R tibia/fibula/ankle: Evidence of multiple lateral soft tissue ulcers in the distal leg and ankle. Evidence of destructive change of the distal fibula. This is highly suspicious for acute osteomyelitis. No acute bony trauma -wound cx from purulent discharge 04/22 #1: +2 MRSA, <1+ E. aerogens (S Ceftriaxone), +4 GBS; #2 +2 MRSA (S tetracycline, bactrim, vanco), +4 E. aerogens (S Ceftriaxone), E fecalis (grissom S) -ESR 116, CRP 27.7> 04/26 >70; 04/30 14.7> 12.8 05/03 - -Bcx 04/21 2/4 + GBS, 2/4 CoNS, 1/4MRSA, Bcx 04/22 14 C. glabrata; 04/25 Bcx NTD; Bcx 04/27 2/4 S. epi (from same bottle) ; 04/28 BCx Neg -Echo:Limited (poor acoustic views)- no vegetations, no significant valve abnormalities -CT chest/abd/p wo: no abscess Dm2 HTN hx of R transmetatarsal amputation GERD CKD st 4 MDD anxiety reported PNC allergy- however tolerates Amoxicillin per daughter and tolerated Ceftriaxone 04/2017 VRE colonized Plan: -Continue empiric IV vanco and Aztreonam #6 and PO Flagyl #5; upon discharge will do IV Vancomycin 1.25g IV q48hr and IV Ertapenem 1g daily for a total fo 42 days. -weekly CBC, CMP, vanco through -06/01 SP Ceftriaxone and Daptomycin #42 -05/08 SP Micafungin #14 -05/06 PO Flagyl #14 -04/30 SP IV Vancomycin #7 -04/23 SP IV Vancomycin #2 and Clindamycin #2 -04/22 SP IV Aztreonam #2 -Gen Sx following- will likely need amputation given failure to maximum medical treatment. patient refusing at this point. -Monitor CBC/BMP, temperatures -wound care -PICC line today Thank you for this consultation. Will continue to follow along with you. 07/04 Assessment: Diabetic foot ulcers- worsening w/ New L foot ulceration c/w abscess, worsening and extensive OM despite previous appropriate medical tx (I+D, and prolonged IV abx tx) - -prior L lateral ankle wound healing -s/p I+D L medial ankle abscess 07/01 -OR findings: area of max fluctuance: abscess cavity with 25-50cc pus ; medial left distal leg/ankle: abscess cavity 10cm x 5cm and down to bone. no other tracking noted. -cx NTD -MRI L Foot 06/30: Abnormal fluid collection in the medial aspect of the ankle measuring approximately 4x 1.7 x 12 cm suspicious for abscess. Evidence of progressively worsening signal alteration presumably osteomyelitis involving bilateral malleolus regions, distal tibia plafond, talus and possibly the upper part of the calcaneus. -wound cx Neg -A. duplex done here: no significant stenosis or occlusion -a. duplex at [facility]: mild stenosis in left superficial femoral artery, left popliteal artery, monophasic -06/30 ESR 104, CRP 3.5 (decreased from prior) -Bcx NTD Afebrile, no leukocytosis Hx of Sepsis 2ry to L Leg cellulitis., large abscess (polymicrobial), infected ankle wound and OM c/w polymicrobial bacteremia and fungemia April 2017, s/p Rx -MRI L leg: Positive for osteomyelitis of the distal fibula, with evidence of bony destruction. More subtle marrow changes as described in the talus and calcaneus, also suspicious for osteomyelitis. Evidence of soft tissue cellulitis both laterally and medially. No drainable abscess. Abnormal peroneus longus tendon, may indicate inflammation or infection. Possible damage to the distal peroneus brevis tendon - s/p bedside I+D 04/23: large abscess in left distal lateral leg down to muscle and tendon. large area of fluctuance. 50-75cc of pus evacuated; wound cx +1 K.pna (grissom S), +4 E. fecalis (grissom S) -Xray R tibia/fibula/ankle: Evidence of multiple lateral soft tissue ulcers in the distal leg and ankle. Evidence of destructive change of the distal fibula. This is highly suspicious for acute osteomyelitis. No acute bony trauma -wound cx from purulent discharge 04/22 #1: +2 MRSA, <1+ E. aerogens (S Ceftriaxone), +4 GBS; #2 +2 MRSA (S tetracycline, bactrim, vanco), +4 E. aerogens (S Ceftriaxone), E fecalis (grissom S) -ESR 116, CRP 27.7> 04/26 >70; 04/30 14.7> 12.8 05/03 - -Bcx 04/21 2 + GBS, 2/ CoNS, 02/13MRSA, Bcx 04/22 1 C. glabrata; 04/25 Bcx NTD; Bcx 04/27 2 S. epi (from same bottle) ; 04/28 BCx Neg -Echo:Limited (poor acoustic views)- no vegetations, no significant valve abnormalities -CT chest/abd/p wo: no abscess Dm2 HTN hx of R transmetatarsal amputation GERD CKD st 4 MDD anxiety reported PNC allergy- however tolerates Amoxicillin per daughter and tolerated Ceftriaxone 04/2017 VRE colonized Plan: -Continue empiric IV vanco and Aztreonam #6 and PO Flagyl #5; upon discharge will do IV Vancomycin 1.25g IV q48hr and IV Ertapenem 1g daily for a total fo 42 days. -weekly CBC, CMP, vanco through -06/01 SP Ceftriaxone and Daptomycin #42 -05/08 SP Micafungin #14 -05/06 PO Flagyl #14 -04/30 SP IV Vancomycin #7 -04/23 SP IV Vancomycin #2 and Clindamycin #2 -04/22 SP IV Aztreonam #2 -Gen Sx following- will likely need amputation given failure to maximum medical treatment. patient refusing at this point. -Monitor CBC/BMP, temperatures -wound care -PICC line today Thank you for this consultation. Will continue to follow along with you. Discussed with RN, Dr Richmond and Dr Ramirez. Allergies: Coded Allergies: PENICILLINS (Verified Allergy, Severe, SWOLLEN BODY, 04/23/17) Per Daughter, patient has tolerated Amoxicillin Tolerated Ceftriaxone 04/22/17 Uncoded Allergies: Blood Transfusion (Adverse Reaction, Unknown, 06/29/17) Pt states that she develops lower extremity wounds after blood transfusions Medication History Scheduled Amlodipine Besylate* (Amlodipine Besylate*), 10 MG ORAL DAILY, (Reported) Ascorbic Acid* (Ascorbic Acid*), 500 MG ORAL TWICE A DAY, (Reported) Aspirin* (Aspirin*), 81 MG ORAL DAILY Atorvastatin Calcium* (Lipitor*), 20 MG ORAL BEDTIME Ferrous Sulfate* (Ferrous Sulfate*), 325 MG ORAL DAILY, (Reported) Folic Acid* (Folic Acid*), 1 MG ORAL DAILY, (Reported) Insulin Aspart* (Novolog*), 6 UNITS SUBQ THREE TIMES A DAY, (Reported) Insulin Detemir (Levemir Flexpen), 15 UNITS SUBQ Q12HR Zinc Sulfate (Zinc Sulfate), 220 MG ORAL DAILY, (Reported) [PROSTAT liq], 30 ML PO BID, (Reported) Scheduled PRN Insulin Aspart* (Novolog*), 0 SUBQ BEDTIME PRN for PER SLIDING SCALE, ( Reported) Ondansetron* (Zofran*), 4 MG ORAL Q6H PRN for Nausea & Vomiting, (Reported) Pantoprazole* (Pantoprazole*), 40 MG ORAL DAILY PRN for GIT PPX, (Reported) Tramadol Hcl* (Ultram*), 50 MG ORAL Q6H PRN for For Pain, (Reported) Tramadol Hcl* (Ultram*), 25 MG ORAL 30-45 minutes PRN for BEFORE WOUND CLEANING, (Reported) Miscellaneous Medications Loratadine (Loratadine), 10 MG PO, (Reported) Patient History Healthcare decision maker Resuscitation status Full Code Advanced Directive on File Yes Patient History Narrative Pmhx: as above Shx: reviewed Fhx: non contributory Physical Exam Last 24 Hour Vital Signs Date Time Temp Pulse Resp B/P (MAP) Pulse Ox O2 Delivery O2 Flow Rate FiO2 01/30/18 12:00 97.3 79 20 158/91 (113) 99 01/30/18 09:53 88 18 Room Air 21 01/30/18 09:00 Room Air 01/30/18 08:00 98.9 88 20 150/88 (108) 99 01/30/18 04:00 99.2 87 18 127/57 (80) 96 12/21/18 00:46 Room Air 01/29/18 22:30 99.2 87 20 147/87 (107) 99 01/29/18 22:05 97.4 81 18 150/77 100 Room Air 79 18 22:05 97.4 79 18 150/77 100 Room Air 01/29/18 19:08 97.7 81 18 148/80 100 Room Air 01/29/18 18:30 81 12 Room Air 01/29/18 18:30 98.0 81 12 151/91 100 Room Air 01/29/18 18:14 98.1 84 18 137/78 98 Room Air Intake and Output 01/29/18 01/30/18 19:00 07:00 Intake Total 701.6 ml Balance 701.6 ml Intake IV Total 701.6 ml # Voids 1 4 # Bowel Movements 1 Laboratory Tests Test 01/29/18 18:40 01/30/18 05:10 01/30/18 05:30 White Blood Count 7.6 K/UL (4.8-10.8) 6.8 K/UL (4.8-10.8) Red Blood Count 3.78 M/UL (4.20-5.40) L 3.47 M/UL (4.20-5.40) L Hemoglobin 10.0 G/DL (12.0-16.0) L 9.3 G/DL (12.0-16.0) L Hematocrit 32.8 % (37.0-47.0) L 30.1 % (37.0-47.0) L Mean Corpuscular Volume 87 FL (80-99) 87 FL (80-99) Mean Corpuscular Hemoglobin 26.4 PG (27.0-31.0) L 26.9 PG (27.0-31.0) L Mean Corpuscular Hemoglobin Concent 30.4 G/DL (32.0-36.0) L 31.0 G/DL (32.0-36.0) L Red Cell Distribution Width 13.1 % (11.6-14.8) 12.7 % (11.6-14.8) Platelet Count 211 K/UL (150-450) 201 K/UL (150-450) Mean Platelet Volume 8.2 FL (6.5-10.1) 8.5 FL (6.5-10.1) Neutrophils (%) (Auto) 60.2 % (45.0-75.0) 60.2 % (45.0-75.0) Lymphocytes (%) (Auto) 29.8 % (20.0-45.0) 29.1 % (20.0-45.0) Monocytes (%) (Auto) 7.7 % (1.0-10.0) 8.4 % (1.0-10.0) Eosinophils (%) (Auto) 1.5 % (0.0-3.0) 1.3 % (0.0-3.0) Basophils (%) (Auto) 0.9 % (0.0-2.0) 0.9 % (0.0-2.0) Prothrombin Time 10.9 SEC (9.30-11.50) 11.1 SEC (9.30-11.50) Prothromb Time International Ratio 1.0 (0.9-1.1) 1.1 (0.9-1.1) Activated Partial Thromboplast Time 32 SEC (23-33) 31 SEC (23-33) Sodium Level 137 MMOL/L (136-145) 137 MMOL/L (136-145) Potassium Level 4.5 MMOL/L (3.5-5.1) 4.4 MMOL/L (3.5-5.1) Chloride Level 103 MMOL/L (98-107) 105 MMOL/L (98-107) Carbon Dioxide Level 24 MMOL/L (21-32) 23 MMOL/L (21-32) Anion Gap 10 mmol/L (5-15) 9 mmol/L (5-15) Blood Urea Nitrogen 44 mg/dL (7-18) H 41 mg/dL (7-18) H Creatinine 2.8 MG/DL (0.55-1.30) H 2.6 MG/DL (0.55-1.30) H Estimat Glomerular Filtration Rate 21.3 mL/min (>60) 23.3 mL/min (>60) Glucose Level 379 MG/DL (74-106) H 325 MG/DL (74-106) H Calcium Level 9.4 MG/DL (8.5-10.1) 8.9 MG/DL (8.5-10.1) Total Bilirubin 0.4 MG/DL (0.2-1.0) 0.3 MG/DL (0.2-1.0) Aspartate Amino Transf (AST/SGOT) 8 U/L (15-37) L 7 U/L (15-37) L Alanine Aminotransferase (ALT/SGPT) 18 U/L (12-78) 16 U/L (12-78) Alkaline Phosphatase 102 U/L (46-116) 91 U/L (46-116) Total Protein 8.7 G/DL (6.4-8.2) H 8.0 G/DL (6.4-8.2) Albumin 3.0 G/DL (3.4-5.0) L 2.7 G/DL (3.4-5.0) L Globulin 5.7 g/dL 5.3 g/dL Albumin/Globulin Ratio 0.5 (1.0-2.7) L 0.5 (1.0-2.7) L Hemoglobin A1c 10.0 % (4.3-6.0) H Triglycerides Level 61 MG/DL (30-150) Cholesterol Level 124 MG/DL (< 200) LDL Cholesterol 74 mg/dL (<100) HDL Cholesterol 50 MG/DL (40-60) Cholesterol/HDL Ratio 2.5 (3.3-4.4) L C-Reactive Protein, Quantitative 4.8 mg/dL (0.00-0.90) H Microbiology Date/Time Source Procedure Growth Status 01/29/18 19:15 Skin Gram Stain - Final Resulted 01/29/18 19:15 Skin Wound Culture Pending Resulted 01/29/18 21:40 Rectum Received Height (Feet): 5 Height (Inches): 4.00 Weight (Pounds): 248 Medications Current Medications Medications (Trade) Dose Ordered Sig/Artemio Route PRN Reason Start Time Stop Time Status Last Admin Dose Admin Acetaminophen (Tylenol) 650 mg Q4H PRN ORAL fever 01/29/18 22:15 02/28/18 22:14 Albuterol/ Ipratropium (Albuterol/ Ipratropium) 3 ml Q4H PRN HHN Shortness of Breath 01/29/18 22:15 02/03/18 22:14 Cefepime HCl 1 gm/ Dextrose 55 ml @ 110 mls/hr DAILY IVPB 01/31/18 09:00 02/05/18 23:59 Dextrose (Dextrose 50%) 25 ml Q30M PRN IV Hypoglycemia 01/29/18 19:45 02/28/18 19:44 Dextrose (Dextrose 50%) 50 ml Q30M PRN IV Hypoglycemia 01/29/18 19:45 02/28/18 19:44 Diphenhydramine HCl (Benadryl) 25 mg Q6H PRN ORAL Itching/Pruritis 01/29/18 19:45 02/28/18 19:44 Docusate Sodium (Colace) 100 mg TID ORAL 01/30/18 18:00 02/28/18 20:59 Gadobutrol (Gadavist) 7.5 mmol NOW PRN IV Radiology Procedure 01/29/18 19:45 02/02/18 19:34 Heparin Sodium (Porcine) (Heparin 5000 units/ml) 5,000 units EVERY 12 HOURS SUBQ 01/29/18 22:45 02/28/18 22:44 01/30/18 08:32 Insulin Aspart (NovoLOG) BEFORE MEALS AND HS SUBQ 01/30/18 06:30 03/01/18 06:29 01/30/18 06:06 Magnesium Hydroxide (Mom) 30 ml HSPRN PRN ORAL Constipation 01/29/18 19:45 02/28/18 19:44 Morphine Sulfate (Morphine Sulfate) 1 mg Q3H PRN IVP Mild Pain (Pain Scale 1-3) 01/29/18 19:45 02/05/18 19:44 Morphine Sulfate (Morphine Sulfate) 2 mg Q4H PRN IVP Moderate Pain (Pain Scale 4-6) 01/29/18 22:15 02/05/18 22:14 Morphine Sulfate (Morphine Sulfate) 4 mg Q3H PRN IVP Severe Pain (Pain Scale 7-10) 01/29/18 19:45 02/05/18 19:44 Nitroglycerin (Ntg) 0.4 mg Q5M PRN SL Prn Chest Pain 01/29/18 22:15 02/28/18 22:14 Ondansetron HCl (Zofran) 4 mg Q6H PRN IVP Nausea & Vomiting 01/29/18 22:15 02/28/18 22:14 Pantoprazole (Protonix) 40 mg DAILY ORAL 01/30/18 13:30 03/01/18 13:29 01/30/18 14:05 Polyethylene Glycol (Miralax) 17 gm DAILYPRN PRN ORAL Constipation 01/29/18 22:15 02/28/18 22:14 Sodium Chloride 1,000 ml @ 50 mls/hr Q20H IV 01/30/18 13:30 03/01/18 13:29 01/30/18 14:05 Temazepam (Restoril) 15 mg HSPRN PRN ORAL Insomnia 01/29/18 22:15 02/05/18 22:14 Vancomycin/Sodium Chloride 250 ml @ 166.667 mls/hr Q24H IVPB 01/31/18 00:00 02/05/18 00:00 Assessment/Plan Assessment/Plan Abx: Cefepime 01/29- IV Vancomycin 01/30- Assessment: R foot stump worsening ulcer w/ suspicion for OM and abscess -MRI R foot: Postsurgical changes of the right foot, as described Signal abnormality of all 5 metatarsal stumps. Unless the amputation with very recent, (in which case signal abnormality could be reactive), findings are worrisome for osteomyelitis. Subtle signal abnormality of the lateral cuneiform, could indicate early osteomyelitis. 5.1 x 2.1 x 1.3 cm fluid collection in the superficial posterior plantar fat. This is concerning for an abscess. 1.8 x 1.2 x 5.2 cm fluid collection medial to the anterior calcaneus within the deep subcutaneous fat, likewise concerning for abscess. 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 Evidence of progressively worsening signal alteration presumably osteomyelitis involving bilateral malleolus regions, distal tibia plafond, talus and possibly the upper part of the calcaneus. -wound cx Neg -hx of Large abscess and polymicrobial bacteremia and fungemia 04/2017, s/p Rx -- wound cx from purulent discharge 04/22 #1: +2 MRSA, <1+ E. aerogens (S Ceftriaxone), +4 GBS; #2 +2 MRSA (S tetracycline, bactrim, vanco), +4 E. aerogens (S Ceftriaxone), E fecalis (grissom S) --Bcx 04/21 2/4 + GBS, 2/4 CoNS, 02/13MRSA, Bcx 04/22 1 C. glabrata; Bcx NTD; Bcx 04/27 2/4 S. epi (from same bottle) ; 04/28 BCx Neg Dm2 HTN hx of R transmetatarsal amputation GERD CKD st 4 MDD anxiety reported PNC allergy- however tolerates Amoxicillin per daughter and tolerated Ceftriaxone 04/2017 hx of VRE colonization Plan: -Continue empiric IV Vancomycin and Cefepime and add Flagyl for OM and abscess -f/u cx -Monitor CBC/CMP, temperatures -Sx f/u- plan for surgical intervention -send deep tissue cultures -wound care -ESR, CRP am Thank you for this consultation. Will continue to follow along with you. Discussed with Faye Johnson M.D. Jan 30, 2018 17:03
--- NOTE | 2018-01-30 19:30 | History and Physical Report ---
DATE OF ADMISSION: 01/29/2018 CHIEF COMPLAINT: Right foot stump infection, possible debridement. HISTORY OF PRESENT ILLNESS: This is a 52-year-old morbidly obese female with past medical history significant for hypertension, diabetes type 2, chronic kidney disease, and dyslipidemia, who was presented to the hospital from nursing facility afterwards noted to have infected right foot stump. The patient underwent a transmetatarsal amputation in the past and was noted to have the wound still oozing and necrotic and subsequently the patient was advised to be transferred to the hospital for possible BKA by Dr. Ramirez. Over arrival to the emergency room, the patient was noted to have WBC of 7.6 and oozing from the right stump and subsequently, the patient was admitted to the hospital with possible infected stump from transmetatarsal area. PAST MEDICAL HISTORY/PAST SURGICAL HISTORY: As above history of diabetes type 2, hypertension, dyslipidemia, prior cyst abscess, diabetic nephropathy, osteomyelitis, anemia of chronic kidney disease, history of diabetic foot ulcer, fungemia, hypertension, and peripheral vascular disease. MEDICATIONS: At home significant for amlodipine, ascorbic acid, aspirin, atorvastatin, iron sulfate, folic acid, aspart insulin, Levemir insulin, zinc, ProStat, Protonix, and tramadol as needed. ALLERGIES: To blood transfusion and penicillin. SOCIAL HISTORY: Denies any smoking, alcohol, or drugs at this time. longterm resident. FAMILY HISTORY: Noncontributory. REVIEW OF SYSTEMS: Mostly as above. Denies any dysuria, frequency, or hematuria. Denies any hemoptysis or hematochezia. Denies any suicidal or homicidal ideation. Denies any loss of consciousness. Denies any fall or head trauma. PHYSICAL EXAMINATION: VITAL SIGNS: On admission, temperature 98.1, pulse of 84, respirations 18, and blood pressure 137/78. GENERAL: The patient is awake, responsive, in no acute distress. HEAD AND NECK: Pupils are equal and reactive to light. Extraocular movements are intact. Neck was supple. No JVD. LUNGS: Good air entry. No wheezing or rales. HEART: S1 and S2. Distant heart sounds. No murmurs or gallops. ABDOMEN: Soft, nondistended, and nontender. Morbidly obese. EXTREMITIES: No cyanosis, clubbing, or edema. Right lower extremity has a transmetatarsal amputation with oozing from the site. RECTAL/GENITOURINARY: Refused and deferred. PSYCHIATRIC: Mood and affect is intact. LABORATORY AND DIAGNOSTIC DATA: Laboratory on admission, WBC of 7.6, hemoglobin 10, hematocrit 32, and platelets 211. Sodium 137, potassium 4.5, chloride 103, bicarbonate 24, BUN 44, creatinine 2.8, GFR is 21, and glucose is 379. ALT of 8, AST of 18, and cholesterol is 124. PT of 10, INR is 1.0, and PTT of 32. The patient had an MRI of the foot was done. Right foot shows that there are postsurgical changes of the right foot and signal abnormality of all 5 metatarsal stumps unless there is an amputation with very recent worrisome for osteomyelitis. Soft tissue signal abnormality of the lateral cuneiform and could indicate early osteomyelitis. A 5 x 6 x 1.3 cm fluid collection in the superficial posterior plantar fat is concerned about the abscess. There is a 1.8 x 1.2 x 5.2 cm fluid collection medial to the anterior calcaneus retained in deep subcutaneous fat, likely concerned about abscess. ASSESSMENT: 1. Right foot transmetatarsal infected with underlying abscess as well as osteomyelitis. 2. Severe peripheral vascular disease. 3. Chronic kidney disease. 4. Diabetes type 2, uncontrolled. 5. Diabetic nephropathy. 6. Chronic foot ulcer. 7. History of bacteremia. 8. Hypertension. 9. Prior history of sepsis. PLAN: 1. Admit the patient to medical/surgical. 2. We will follow up with Dr. Ramirez. 3. We will monitor laboratory and cultures. 4. Broad-spectrum antibiotic with vancomycin and cefepime. 5. Code status is Full Code. 6. Accu-Chek with sliding scale. 7. Heparin 5000 q.8 hours. 8. We will follow up with Dr. Valadez from Nephrology and consider Podiatry consultation. Tobin Albert M.D. DR: HUE JOB#: [id number] CC:
[2018-01-30 20:00] VITALS: BP 154/87
[2018-01-30] MEDS: metroNIDAZOLE 500mg tab ORAL SCH (21:25)
[2018-01-30 21:41] LABS: APPEARANCE,URINE CLEAR; BILIRUBIN, URINE NEGATIVE (NEGATIVE); COLOR,URINE PALE YELLOW; GLUCOSE, URINE (UA) 1+ (NEGATIVE); KETONES,URINE NEGATIVE (NEGATIVE); LEUKOCYTE ESTERASE ,URINE NEGATIVE (NEGATIVE); NITRITE,URINE NEGATIVE (NEGATIVE); PH,URINE 6.5 (4.5-8.0); PROTEIN,URINE 3+ (NEGATIVE); UROBILINOGEN,URINE NORMAL MG/DL (0.0-1.0)
[2018-01-31] VITALS: BP 123/62
[2018-01-31] MEDS: Vancomycin 750mg/NS 250ml IVPB SCH (00:41)
--- NOTE | 2018-01-31 00:58 | Consultation ---
History of Present Illness General Chief Complaint: General Complaint Present Illness HPI 52-year-old female with past medical history significant for anxiety hypertension, diabetes type 2, chronic kidney disease, and dyslipidemia, who was presented to the hospital from nursing facility afterwards noted to have infected right foot stump. well familiar with this pt the pt has insomnia and anxiety the pt stated that the pain is well controlled Allergies: Coded Allergies: PENICILLINS (Verified Allergy, Severe, SWOLLEN BODY, 04/23/17) Per Daughter, patient has tolerated Amoxicillin Tolerated Ceftriaxone 04/22/17 Uncoded Allergies: Blood Transfusion (Adverse Reaction, Unknown, 06/29/17) Pt states that she develops lower extremity wounds after blood transfusions Medication History Scheduled Amlodipine Besylate* (Amlodipine Besylate*), 10 MG ORAL DAILY, (Reported) Ascorbic Acid* (Ascorbic Acid*), 500 MG ORAL TWICE A DAY, (Reported) Aspirin* (Aspirin*), 81 MG ORAL DAILY Atorvastatin Calcium* (Lipitor*), 20 MG ORAL BEDTIME Ferrous Sulfate* (Ferrous Sulfate*), 325 MG ORAL DAILY, (Reported) Folic Acid* (Folic Acid*), 1 MG ORAL DAILY, (Reported) Insulin Aspart* (Novolog*), 6 UNITS SUBQ THREE TIMES A DAY, (Reported) Insulin Detemir (Levemir Flexpen), 15 UNITS SUBQ Q12HR Zinc Sulfate (Zinc Sulfate), 220 MG ORAL DAILY, (Reported) [PROSTAT liq], 30 ML PO BID, (Reported) Scheduled PRN Insulin Aspart* (Novolog*), 0 SUBQ BEDTIME PRN for PER SLIDING SCALE, ( Reported) Ondansetron* (Zofran*), 4 MG ORAL Q6H PRN for Nausea & Vomiting, (Reported) Pantoprazole* (Pantoprazole*), 40 MG ORAL DAILY PRN for GIT PPX, (Reported) Tramadol Hcl* (Ultram*), 50 MG ORAL Q6H PRN for For Pain, (Reported) Tramadol Hcl* (Ultram*), 25 MG ORAL 30-45 minutes PRN for BEFORE WOUND CLEANING, (Reported) Miscellaneous Medications Loratadine (Loratadine), 10 MG PO, (Reported) Patient History Limited by: medical condition History Provided By: Patient, Medical Record, PMD Healthcare decision maker Resuscitation status Full Code Advanced Directive on File Yes Past Medical/Surgical History Past Medical/Surgical History: (1) Sepsis (2) Diabetes mellitus (3) Diabetic nephropathy (4) Osteomyelitis (5) Anemia in chronic kidney disease (6) CKD (chronic kidney disease) (7) Leg ulcer, left (8) Bacteremia (9) Fungemia (10) Diabetic foot ulcer (11) HTN (hypertension) (12) Nausea & vomiting (13) Peripheral vascular disease Review of Systems Psychiatric: Reports: anxiety Physical Exam General Appearance: alert Neurologic: oriented x 3, responsive, depressed affect Last 24 Hour Vital Signs Date Time Temp Pulse Resp B/P (MAP) Pulse Ox O2 Delivery O2 Flow Rate FiO2 01/31/18 00:00 98.6 88 18 123/62 (82) 98 01/30/18 21:00 Room Air 01/30/18 20:26 79 18 Room Air 21 01/30/18 20:00 99.3 85 18 154/87 (109) 98 01/30/18 16:00 98.1 78 20 147/97 (114) 98 01/30/18 12:00 97.3 79 20 158/91 (113) 99 01/30/18 09:53 88 18 Room Air 21 01/30/18 09:00 Room Air 01/30/18 08:00 98.9 88 20 150/88 (108) 99 01/30/18 04:00 99.2 87 18 127/57 (80) 96 Intake and Output 01/30/18 01/31/18 19:00 07:00 Intake Total 1775 ml 75 ml Balance 1775 ml 75 ml Intake Oral 800 ml IV Total 975 ml 75 ml # Voids 3 Laboratory Tests Test 01/30/18 05:10 01/30/18 05:30 01/30/18 20:50 White Blood Count 6.8 K/UL (4.8-10.8) Red Blood Count 3.47 M/UL (4.20-5.40) L Hemoglobin 9.3 G/DL (12.0-16.0) L Hematocrit 30.1 % (37.0-47.0) L Mean Corpuscular Volume 87 FL (80-99) Mean Corpuscular Hemoglobin 26.9 PG (27.0-31.0) L Mean Corpuscular Hemoglobin Concent 31.0 G/DL (32.0-36.0) L Red Cell Distribution Width 12.7 % (11.6-14.8) Platelet Count 201 K/UL (150-450) Mean Platelet Volume 8.5 FL (6.5-10.1) Neutrophils (%) (Auto) 60.2 % (45.0-75.0) Lymphocytes (%) (Auto) 29.1 % (20.0-45.0) Monocytes (%) (Auto) 8.4 % (1.0-10.0) Eosinophils (%) (Auto) 1.3 % (0.0-3.0) Basophils (%) (Auto) 0.9 % (0.0-2.0) Prothrombin Time 11.1 SEC (9.30-11.50) Prothromb Time International Ratio 1.1 (0.9-1.1) Activated Partial Thromboplast Time 31 SEC (23-33) Sodium Level 137 MMOL/L (136-145) Potassium Level 4.4 MMOL/L (3.5-5.1) Chloride Level 105 MMOL/L (98-107) Carbon Dioxide Level 23 MMOL/L (21-32) Anion Gap 9 mmol/L (5-15) Blood Urea Nitrogen 41 mg/dL (7-18) H Creatinine 2.6 MG/DL (0.55-1.30) H Estimat Glomerular Filtration Rate 23.3 mL/min (>60) Glucose Level 325 MG/DL (74-106) H Hemoglobin A1c 10.0 % (4.3-6.0) H Calcium Level 8.9 MG/DL (8.5-10.1) Total Bilirubin 0.3 MG/DL (0.2-1.0) Aspartate Amino Transf (AST/SGOT) 7 U/L (15-37) L Alanine Aminotransferase (ALT/SGPT) 16 U/L (12-78) Alkaline Phosphatase 91 U/L (46-116) Total Protein 8.0 G/DL (6.4-8.2) Albumin 2.7 G/DL (3.4-5.0) L Globulin 5.3 g/dL Albumin/Globulin Ratio 0.5 (1.0-2.7) L Triglycerides Level 61 MG/DL (30-150) Cholesterol Level 124 MG/DL (< 200) LDL Cholesterol 74 mg/dL (<100) HDL Cholesterol 50 MG/DL (40-60) Cholesterol/HDL Ratio 2.5 (3.3-4.4) L C-Reactive Protein, Quantitative 4.8 mg/dL (0.00-0.90) H Urine Color Pale yellow Urine Appearance Clear Urine pH 6.5 (4.5-8.0) Urine Specific [place] 1.010 (1.005-1.035) Urine Protein 3+ (NEGATIVE) H Urine Glucose (UA) 1+ (NEGATIVE) H Urine Ketones Negative (NEGATIVE) Urine Blood Negative (NEGATIVE) Urine Nitrite Negative (NEGATIVE) Urine Bilirubin Negative (NEGATIVE) Urine Urobilinogen Normal MG/DL (0.0-1.0) Urine Leukocyte Esterase Negative (NEGATIVE) Urine RBC 0-2 /HPF (0 - 2) Urine WBC 0 /HPF (0 - 2) Urine Squamous Epithelial Cells Few /LPF (NONE/OCC) Urine Bacteria Occasional /HPF (NONE) Height (Feet): 5 Height (Inches): 4.00 Weight (Pounds): 248 Medications Current Medications Medications (Trade) Dose Ordered Sig/Artemio Route PRN Reason Start Time Stop Time Status Last Admin Dose Admin Acetaminophen (Tylenol) 650 mg Q4H PRN ORAL fever 01/29/18 22:15 02/28/18 22:14 Albuterol/ Ipratropium (Albuterol/ Ipratropium) 3 ml Q4H PRN HHN Shortness of Breath 01/29/18 22:15 02/03/18 22:14 Cefepime HCl 1 gm/ Dextrose 55 ml @ 110 mls/hr DAILY IVPB 01/31/18 09:00 02/05/18 23:59 Dextrose (Dextrose 50%) 25 ml Q30M PRN IV Hypoglycemia 01/29/18 19:45 02/28/18 19:44 Dextrose (Dextrose 50%) 50 ml Q30M PRN IV Hypoglycemia 01/29/18 19:45 02/28/18 19:44 Diphenhydramine HCl (Benadryl) 25 mg Q6H PRN ORAL Itching/Pruritis 01/29/18 19:45 02/28/18 19:44 Docusate Sodium (Colace) 100 mg TID ORAL 01/30/18 18:00 02/28/18 20:59 01/30/18 17:09 Gadobutrol (Gadavist) 7.5 mmol NOW PRN IV Radiology Procedure 01/29/18 19:45 02/02/18 19:34 Heparin Sodium (Porcine) (Heparin 5000 units/ml) 5,000 units EVERY 12 HOURS SUBQ 01/29/18 22:45 02/28/18 22:44 01/30/18 21:29 Insulin Aspart (NovoLOG) BEFORE MEALS AND HS SUBQ 01/30/18 06:30 03/01/18 06:29 01/30/18 16:50 Magnesium Hydroxide (Mom) 30 ml HSPRN PRN ORAL Constipation 01/29/18 19:45 02/28/18 19:44 Metronidazole (Flagyl) 500 mg Q8HR ORAL 01/30/18 22:00 02/06/18 21:59 01/30/18 21:25 Morphine Sulfate (Morphine Sulfate) 1 mg Q3H PRN IVP Mild Pain (Pain Scale 1-3) 01/29/18 19:45 02/05/18 19:44 Morphine Sulfate (Morphine Sulfate) 2 mg Q4H PRN IVP Moderate Pain (Pain Scale 4-6) 01/29/18 22:15 02/05/18 22:14 Morphine Sulfate (Morphine Sulfate) 4 mg Q3H PRN IVP Severe Pain (Pain Scale 7-10) 01/29/18 19:45 02/05/18 19:44 Nitroglycerin (Ntg) 0.4 mg Q5M PRN SL Prn Chest Pain 01/29/18 22:15 02/28/18 22:14 Ondansetron HCl (Zofran) 4 mg Q6H PRN IVP Nausea & Vomiting 01/29/18 22:15 02/28/18 22:14 Pantoprazole (Protonix) 40 mg DAILY ORAL 01/30/18 13:30 03/01/18 13:29 01/30/18 14:05 Polyethylene Glycol (Miralax) 17 gm DAILYPRN PRN ORAL Constipation 01/29/18 22:15 02/28/18 22:14 Sodium Chloride 1,000 ml @ 50 mls/hr Q20H IV 01/30/18 13:30 03/01/18 13:29 01/30/18 14:05 Temazepam (Restoril) 15 mg HSPRN PRN ORAL Insomnia 01/29/18 22:15 02/05/18 22:14 Vancomycin/Sodium Chloride 250 ml @ 166.667 mls/hr Q24H IVPB 01/31/18 00:00 02/05/18 00:00 01/31/18 00:41 Assessment/Plan Problem List: (1) Anxiety disorder ICD Codes: F41.9 - Anxiety disorder, unspecified SNOMED: [id number] Status: stable Assessment/Plan remron 7.5 mg qhs prn provided Remington Peralta MD Jan 31, 2018 00:58
[2018-01-31 04:00] VITALS: BP 138/81
[2018-01-31] MEDS: metroNIDAZOLE 500mg tab ORAL SCH ×3 (06:20→21:01)
[2018-01-31 07:26] LABS: ALANINE AMINOTRANSFERASE 24 U/L (12-78); ALBUMIN 2.5 G/DL (3.4-5.0); ALBUMIN/GLOBULIN RATIO 0.6 (1.0-2.7); ALKALINE PHOSPHATASE 77 U/L (46-116); ANION GAP 9 mmol/L (5-15); ASPARTATE AMINO TRANSFERASE 6 U/L (15-37); BILIRUBIN,TOTAL 0.4 MG/DL (0.2-1.0); BLOOD UREA NITROGEN 34 mg/dL (7-18); CALCIUM 8.7 MG/DL (8.5-10.1); CARBON DIOXIDE 22 MMOL/L (21-32); CHLORIDE 106 MMOL/L (98-107); CREATININE 2.6 MG/DL (0.55-1.30); FERRITIN 94 NG/ML (8-388); GAMMA GLUTAMYL TRANSPEPTIDASE 31 U/L (5-85); PHOSPHORUS 3.6 MG/DL (2.5-4.9); POTASSIUM 4.5 MMOL/L (3.5-5.1); SODIUM 137 MMOL/L (136-145)
[2018-01-31 07:29] LABS: BASOPHILS % (AUTO) 0.9 % (0.0-2.0); EOSINOPHILS % (AUTO) 2.2 % (0.0-3.0); HEMOGLOBIN 8.6 G/DL (12.0-16.0); LYMPHOCYTES % (AUTO) 31.2 % (20.0-45.0); MEAN CORPUSCULAR VOLUME 87 FL (80-99); MONOCYTES % (AUTO) 11.3 % (1.0-10.0); NEUTROPHILS % (AUTO) 54.5 % (45.0-75.0); PLATELET COUNT 188 K/UL (150-450); RED BLOOD COUNT 3.22 M/UL (4.20-5.40); RED CELL DISTRIBUTION WIDTH 12.7 % (11.6-14.8); WHITE BLOOD COUNT 4.8 K/UL (4.8-10.8)
[2018-01-31 08:00] VITALS: BP 141/82
[2018-01-31] MEDS: NovoLOG Insulin Flexpen SUBQ SCH ×4 (08:13→21:03)
[2018-01-31 08:21] LABS: % IRON SATURATION 26 % (15-50); IRON 34 ug/dL (50-175); TOTAL IRON BINDING CAPACITY 131 ug/dL (250-450)
--- NOTE | 2018-01-31 08:52 | Consultation ---
Consult Note Assessment/Plan A/ 1) Abscess right foot stump with osteomyelitis now 2) Nonpressure ulcer right foot - chronic 3) Complicated right forefoot amputation 4) PAD 5) DM with neuropathy 6) DM with hyperglycemia 7) DM foot ulcer left foot P/ 1) Will order wound care for left foot - plantar left foot as well as left hallux 2) Patient was seen by me and my associate this month on multiple visits. Due to the chronic nature of wound and poor skin flap coverage, this wound has poor prognosis. I have discussed this with patient and agreed that elective BKA would be her best choice in order to resolve future morbidity. With her current infection and OM now, I continue to believe that right BKA would be her best treatment. Any other option including continued wound care, IV abx, skin grafts etc would not benefit this patient. Patient would need further medical optimization would be needed to ensure optimal surgical outcome for BKA. D/W Dr Ramirez. 3) Abx per ID 4) Will follow Thank you Zay Schwarz DPM Jan 31, 2018 08:52
[2018-01-31] MEDS: Docusate 100mg cap ORAL SCH ×3 (09:00→17:05)
[2018-01-31] MEDS: Cefepime 1gm in D5W 55ml IVPB SCH (09:07)
[2018-01-31] MEDS: Heparin 5000 units/ml inj SUBQ SCH ×2 (09:08→21:10)
--- NOTE | 2018-01-31 10:05 | Infectious Diseases Prog Note ---
Assessment/Plan Assessment/Plan Abx: Cefepime 01/29- IV Vancomycin 01/30- Assessment: R foot stump worsening ulcer w/ suspicion for OM and abscess -wound cx: S. aureus, Group G step, GNR -MRI R foot: Postsurgical changes of the right foot, as described Signal abnormality of all 5 metatarsal stumps. Unless the amputation with very recent, (in which case signal abnormality could be reactive), findings are worrisome for osteomyelitis. Subtle signal abnormality of the lateral cuneiform, could indicate early osteomyelitis. 5.1 x 2.1 x 1.3 cm fluid collection in the superficial posterior plantar fat. This is concerning for an abscess. 1.8 x 1.2 x 5.2 cm fluid collection medial to the anterior calcaneus within the deep subcutaneous fat, likewise concerning for abscess. 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 Evidence of progressively worsening signal alteration presumably osteomyelitis involving bilateral malleolus regions, distal tibia plafond, talus and possibly the upper part of the calcaneus. -wound cx Neg -hx of Large abscess and polymicrobial bacteremia and fungemia 04/2017, s/p Rx -- wound cx from purulent discharge 04/22 #1: +2 MRSA, <1+ E. aerogens (S Ceftriaxone), +4 GBS; #2 +2 MRSA (S tetracycline, bactrim, vanco), +4 E. aerogens (S Ceftriaxone), E fecalis (grissom S) --Bcx 04/21 2/4 + GBS, 2/4 CoNS, 02/13MRSA, Bcx 04/22 14 C. glabrata; Bcx NTD; Bcx 04/27 2/4 S. epi (from same bottle) ; 04/28 BCx Neg Dm2 HTN hx of R transmetatarsal amputation GERD CKD st 4 MDD anxiety reported PNC allergy- however tolerates Amoxicillin per daughter and tolerated Ceftriaxone 04/2017 hx of VRE colonization Plan: -Continue empiric IV Vancomycin #2, Cefepime #3 and Flagyl #2 for OM and abscess -if febrile, obtain 2 sets of Bcx -f/u cx -Monitor CBC/CMP, temperatures -Sx and podiatry f/u- recommends right BKA -send deep tissue and bone cultures at the time of surgical intervention -wound care -f/u ESR, CRP Thank you for this consultation. Will continue to follow along with you. Discussed with RN. Subjective Allergies: Coded Allergies: PENICILLINS (Verified Allergy, Severe, SWOLLEN BODY, 04/23/17) Per Daughter, patient has tolerated Amoxicillin Tolerated Ceftriaxone 04/22/17 Uncoded Allergies: Blood Transfusion (Adverse Reaction, Unknown, 06/29/17) Pt states that she develops lower extremity wounds after blood transfusions Subjective afebrile no leukocytosis Objective Vital Signs Last 24 Hour Vital Signs Date Time Temp Pulse Resp B/P (MAP) Pulse Ox O2 Delivery O2 Flow Rate FiO2 01/31/18 08:07 82 18 Room Air 21 01/31/18 08:00 98.5 85 18 141/82 (101) 94 85 01/31/18 04:00 98.5 81 19 138/81 (100) 97 01/31/18 00:00 98.6 88 18 123/62 (82) 98 01/30/18 21:00 Room Air 01/30/18 20:26 79 18 Room Air 21 01/30/18 20:00 99.3 85 18 154/87 (109) 98 01/30/18 16:00 98.1 78 20 147/97 (114) 98 01/30/18 12:00 97.3 79 20 158/91 (113) 99 Height (Feet): 5 Height (Inches): 4.00 Weight (Pounds): 248 Microbiology Date/Time Source Procedure Growth Status 01/29/18 19:15 Skin Gram Stain - Final Resulted 01/29/18 19:15 Wound Culture - Preliminary Gram Negative Oz Staphylococcus Aureus Streptococcus Group G Resulted 01/29/18 21:40 Rectum Received Laboratory Tests Test 01/30/18 20:50 01/31/18 05:00 Urine Color Pale yellow Urine Appearance Clear Urine pH 6.5 (4.5-8.0) Urine Specific [place] 1.010 (1.005-1.035) Urine Protein 3+ (NEGATIVE) H Urine Glucose (UA) 1+ (NEGATIVE) H Urine Ketones Negative (NEGATIVE) Urine Blood Negative (NEGATIVE) Urine Nitrite Negative (NEGATIVE) Urine Bilirubin Negative (NEGATIVE) Urine Urobilinogen Normal MG/DL (0.0-1.0) Urine Leukocyte Esterase Negative (NEGATIVE) Urine RBC 0-2 /HPF (0 - 2) Urine WBC 0 /HPF (0 - 2) Urine Squamous Epithelial Cells Few /LPF (NONE/OCC) Urine Bacteria Occasional /HPF (NONE) White Blood Count 4.8 K/UL (4.8-10.8) Red Blood Count 3.22 M/UL (4.20-5.40) L Hemoglobin 8.6 G/DL (12.0-16.0) L Hematocrit 28.0 % (37.0-47.0) L Mean Corpuscular Volume 87 FL (80-99) Mean Corpuscular Hemoglobin 26.7 PG (27.0-31.0) L Mean Corpuscular Hemoglobin Concent 30.8 G/DL (32.0-36.0) L Red Cell Distribution Width 12.7 % (11.6-14.8) Platelet Count 188 K/UL (150-450) Mean Platelet Volume 8.2 FL (6.5-10.1) Neutrophils (%) (Auto) 54.5 % (45.0-75.0) Lymphocytes (%) (Auto) 31.2 % (20.0-45.0) Monocytes (%) (Auto) 11.3 % (1.0-10.0) H Eosinophils (%) (Auto) 2.2 % (0.0-3.0) Basophils (%) (Auto) 0.9 % (0.0-2.0) Erythrocyte Sedimentation Rate Pending Sodium Level 137 MMOL/L (136-145) Potassium Level 4.5 MMOL/L (3.5-5.1) Chloride Level 106 MMOL/L (98-107) Carbon Dioxide Level 22 MMOL/L (21-32) Anion Gap 9 mmol/L (5-15) Blood Urea Nitrogen 34 mg/dL (7-18) H Creatinine 2.6 MG/DL (0.55-1.30) H Estimat Glomerular Filtration Rate 23.3 mL/min (>60) Glucose Level 239 MG/DL (74-106) H Hemoglobin A1c 10.6 % (4.3-6.0) H Uric Acid 5.4 MG/DL (2.6-7.2) Calcium Level 8.7 MG/DL (8.5-10.1) Phosphorus Level 3.6 MG/DL (2.5-4.9) Magnesium Level 1.5 MG/DL (1.8-2.4) L Iron Level 34 ug/dL (50-175) L Total Iron Binding Capacity 131 ug/dL (250-450) L Percent Iron Saturation 26 % (15-50) Unsaturated Iron Binding 97 ug/dL (112-346) L Ferritin 94 NG/ML (8-388) Total Bilirubin 0.4 MG/DL (0.2-1.0) Gamma Glutamyl Transpeptidase 31 U/L (5-85) Aspartate Amino Transf (AST/SGOT) 6 U/L (15-37) L Alanine Aminotransferase (ALT/SGPT) 24 U/L (12-78) Alkaline Phosphatase 77 U/L (46-116) Troponin I 0.001 ng/mL (0.000-0.056) Pro-B-Type Natriuretic Peptide 221 pg/mL (0-125) H Total Protein 6.7 G/DL (6.4-8.2) Albumin 2.5 G/DL (3.4-5.0) L Globulin 4.2 g/dL Albumin/Globulin Ratio 0.6 (1.0-2.7) L Vitamin B12 Level 423 PG/ML (193-986) Folate 39.1 NG/ML (8.6-58.9) Thyroid Stimulating Hormone (TSH) 0.306 uiU/mL (0.358-3.740) Current Medications Medications (Trade) Dose Ordered Sig/Artemio Route PRN Reason Start Time Stop Time Status Last Admin Dose Admin Acetaminophen (Tylenol) 650 mg Q4H PRN ORAL fever 01/29/18 22:15 02/28/18 22:14 Albuterol/ Ipratropium (Albuterol/ Ipratropium) 3 ml Q4H PRN HHN Shortness of Breath 01/29/18 22:15 02/03/18 22:14 Cefepime HCl 1 gm/ Dextrose 55 ml @ 110 mls/hr DAILY IVPB 01/31/18 09:00 02/05/18 23:59 01/31/18 09:07 Dextrose (Dextrose 50%) 25 ml Q30M PRN IV Hypoglycemia 01/29/18 19:45 02/28/18 19:44 Dextrose (Dextrose 50%) 50 ml Q30M PRN IV Hypoglycemia 01/29/18 19:45 02/28/18 19:44 Diphenhydramine HCl (Benadryl) 25 mg Q6H PRN ORAL Itching/Pruritis 01/29/18 19:45 02/28/18 19:44 Docusate Sodium (Colace) 100 mg TID ORAL 01/30/18 18:00 02/28/18 20:59 01/30/18 17:09 Gadobutrol (Gadavist) 7.5 mmol NOW PRN IV Radiology Procedure 01/29/18 19:45 02/02/18 19:34 Heparin Sodium (Porcine) (Heparin 5000 units/ml) 5,000 units EVERY 12 HOURS SUBQ 01/29/18 22:45 02/28/18 22:44 01/31/18 09:08 Insulin Aspart (NovoLOG) BEFORE MEALS AND HS SUBQ 01/30/18 06:30 03/01/18 06:29 01/30/18 16:50 Magnesium Hydroxide (Mom) 30 ml HSPRN PRN ORAL Constipation 01/29/18 19:45 02/28/18 19:44 Metronidazole (Flagyl) 500 mg Q8HR ORAL 01/30/18 22:00 02/06/18 21:59 01/31/18 06:20 Mirtazapine (Remeron) 7.5 mg BEDTIME PRN ORAL insomnia 01/31/18 01:00 03/02/18 00:59 Morphine Sulfate (Morphine Sulfate) 1 mg Q3H PRN IVP Mild Pain (Pain Scale 1-3) 01/29/18 19:45 02/05/18 19:44 Morphine Sulfate (Morphine Sulfate) 2 mg Q4H PRN IVP Moderate Pain (Pain Scale 4-6) 01/29/18 22:15 02/05/18 22:14 Morphine Sulfate (Morphine Sulfate) 4 mg Q3H PRN IVP Severe Pain (Pain Scale 7-10) 01/29/18 19:45 02/05/18 19:44 Nitroglycerin (Ntg) 0.4 mg Q5M PRN SL Prn Chest Pain 01/29/18 22:15 02/28/18 22:14 Ondansetron HCl (Zofran) 4 mg Q6H PRN IVP Nausea & Vomiting 01/29/18 22:15 02/28/18 22:14 Pantoprazole (Protonix) 40 mg DAILY ORAL 01/30/18 13:30 03/01/18 13:29 01/31/18 09:07 Polyethylene Glycol (Miralax) 17 gm DAILYPRN PRN ORAL Constipation 01/29/18 22:15 02/28/18 22:14 Sodium Chloride 1,000 ml @ 50 mls/hr Q20H IV 01/30/18 13:30 03/01/18 13:29 01/31/18 09:08 Vancomycin/Sodium Chloride 250 ml @ 166.667 mls/hr Q24H IVPB 01/31/18 00:00 02/05/18 00:00 01/31/18 00:41 Faye Foy M.D. Jan 31, 2018 10:05
[2018-01-31 12:00] VITALS: BP 146/84
--- NOTE | 2018-01-31 14:50 | Nephrology Progress Note ---
Assessment/Plan Problem List: (1) Diabetic nephropathy (2) Anemia in chronic kidney disease (3) CKD (chronic kidney disease) (4) Diabetic foot ulcer (5) Peripheral vascular disease Assessment Renal failure- Likely Diabetic nephropathy HTN PVD Diabetic foot ulcers / Osteo Anemia of CKD Multiple allergies No Ua available Avoid nephrotoxics GARRISON kidney 2D echo Anemia li Monitor renal parameters Per orders Plan Avoid nephrotoxics GARRISON kidney pending 2D echo pending Anemia li: start EPO and IV iron Monitor renal parameters Per orders Subjective ROS Limited/Unobtainable: No Constitutional: Reports: malaise Objective Objective Last 24 Hour Vital Signs Date Time Temp Pulse Resp B/P (MAP) Pulse Ox O2 Delivery O2 Flow Rate FiO2 01/31/18 12:00 98.6 80 18 146/84 (104) 99 80 01/31/18 08:30 Room Air 01/31/18 08:07 82 18 Room Air 21 01/31/18 08:00 98.5 85 18 141/82 (101) 94 85 01/31/18 04:00 98.5 81 19 138/81 (100) 97 01/31/18 00:00 98.6 88 18 123/62 (82) 98 01/30/18 21:00 Room Air 01/30/18 20:26 79 18 Room Air 21 01/30/18 20:00 99.3 85 18 154/87 (109) 98 01/30/18 16:00 98.1 78 20 147/97 (114) 98 Intake and Output 01/30/18 01/31/18 19:00 07:00 Intake Total 1775 ml 858.334 ml Balance 1775 ml 858.334 ml Intake Oral 800 ml IV Total 975 ml 858.334 ml # Voids 3 1 Laboratory Tests 01/30/18 20:50: Urine Color Pale yellow, Urine Appearance Clear, Urine pH 6.5, Urine Specific [place] 1.010, Urine Protein 3+H, Urine Glucose (UA) 1+H, Urine Ketones Negative , Urine Blood Negative, Urine Nitrite Negative, Urine Bilirubin Negative, Urine Urobilinogen Normal, Urine Leukocyte Esterase Negative, Urine RBC 0-2, Urine WBC 0, Urine Squamous Epithelial Cells Few, Urine Bacteria Occasional 01/31/18 05:00: White Blood Count 4.8, Red Blood Count 3.22L, Hemoglobin 8.6L, Hematocrit 28.0L , Mean Corpuscular Volume 87, Mean Corpuscular Hemoglobin 26.7L, Mean Corpuscular Hemoglobin Concent 30.8L, Red Cell Distribution Width 12.7, Platelet Count 188, Mean Platelet Volume 8.2, Neutrophils (%) (Auto) 54.5, Lymphocytes (%) (Auto) 31.2, Monocytes (%) (Auto) 11.3H, Eosinophils (%) (Auto) 2.2, Basophils (%) (Auto) 0.9, Erythrocyte Sedimentation Rate 87H, Sodium Level 137, Potassium Level 4.5, Chloride Level 106, Carbon Dioxide Level 22, Anion Gap 9, Blood Urea Nitrogen 34H, Creatinine 2.6H, Estimat Glomerular Filtration Rate 23.3, Glucose Level 239H, Hemoglobin A1c 10.6H, Uric Acid 5.4, Calcium Level 8.7, Phosphorus Level 3.6, Magnesium Level 1.5L, Iron Level 34L, Total Iron Binding Capacity 131L, Percent Iron Saturation 26, Unsaturated Iron Binding 97L, Ferritin 94, Total Bilirubin 0.4, Gamma Glutamyl Transpeptidase 31 , Aspartate Amino Transf (AST/SGOT) 6L, Alanine Aminotransferase (ALT/SGPT) 24, Alkaline Phosphatase 77, Troponin I 0.001, Pro-B-Type Natriuretic Peptide 221H, Total Protein 6.7, Albumin 2.5L, Globulin 4.2, Albumin/Globulin Ratio 0.6L, Vitamin B12 Level 423, Folate 39.1, Thyroid Stimulating Hormone (TSH) 0.306L Height (Feet): 5 Height (Inches): 4.00 Weight (Pounds): 248 General Appearance: no apparent distress Cardiovascular: normal rate Respiratory/Chest: decreased breath sounds Abdomen: soft Extremities: other - per offset machine operator Wing Valadez MD Jan 31, 2018 14:50
--- NOTE | 2018-01-31 15:15 | General Surgery Progress Note ---
General Surgery-Progress Note Subjective Additional Comments doing well. no acute events. labs noted. MRI noted Objective Last 24 Hour Vital Signs Date Time Temp Pulse Resp B/P (MAP) Pulse Ox O2 Delivery O2 Flow Rate FiO2 01/31/18 12:00 98.6 80 18 146/84 (104) 99 80 01/31/18 08:30 Room Air 01/31/18 08:07 82 18 Room Air 21 01/31/18 08:00 98.5 85 18 141/82 (101) 94 85 01/31/18 04:00 98.5 81 19 138/81 (100) 97 01/31/18 00:00 98.6 88 18 123/62 (82) 98 01/30/18 21:00 Room Air 01/30/18 20:26 79 18 Room Air 21 01/30/18 20:00 99.3 85 18 154/87 (109) 98 01/30/18 16:00 98.1 78 20 147/97 (114) 98 I&O Intake and Output 01/30/18 01/31/18 19:00 07:00 Intake Total 1775 ml 858.334 ml Balance 1775 ml 858.334 ml Intake Oral 800 ml IV Total 975 ml 858.334 ml # Voids 3 1 Dressing: saturated Wound: other Drains: none Cardiovascular: RSR Respiratory: clear Abdomen: soft, flat, non-tender, present bowel sounds Extremities: other Laboratory Tests Test 01/30/18 20:50 01/31/18 05:00 Urine Color Pale yellow Urine Appearance Clear Urine pH 6.5 (4.5-8.0) Urine Specific [place] 1.010 (1.005-1.035) Urine Protein 3+ (NEGATIVE) H Urine Glucose (UA) 1+ (NEGATIVE) H Urine Ketones Negative (NEGATIVE) Urine Blood Negative (NEGATIVE) Urine Nitrite Negative (NEGATIVE) Urine Bilirubin Negative (NEGATIVE) Urine Urobilinogen Normal MG/DL (0.0-1.0) Urine Leukocyte Esterase Negative (NEGATIVE) Urine RBC 0-2 /HPF (0 - 2) Urine WBC 0 /HPF (0 - 2) Urine Squamous Epithelial Cells Few /LPF (NONE/OCC) Urine Bacteria Occasional /HPF (NONE) White Blood Count 4.8 K/UL (4.8-10.8) Red Blood Count 3.22 M/UL (4.20-5.40) L Hemoglobin 8.6 G/DL (12.0-16.0) L Hematocrit 28.0 % (37.0-47.0) L Mean Corpuscular Volume 87 FL (80-99) Mean Corpuscular Hemoglobin 26.7 PG (27.0-31.0) L Mean Corpuscular Hemoglobin Concent 30.8 G/DL (32.0-36.0) L Red Cell Distribution Width 12.7 % (11.6-14.8) Platelet Count 188 K/UL (150-450) Mean Platelet Volume 8.2 FL (6.5-10.1) Neutrophils (%) (Auto) 54.5 % (45.0-75.0) Lymphocytes (%) (Auto) 31.2 % (20.0-45.0) Monocytes (%) (Auto) 11.3 % (1.0-10.0) H Eosinophils (%) (Auto) 2.2 % (0.0-3.0) Basophils (%) (Auto) 0.9 % (0.0-2.0) Erythrocyte Sedimentation Rate 87 MM/HR (0-30) H Sodium Level 137 MMOL/L (136-145) Potassium Level 4.5 MMOL/L (3.5-5.1) Chloride Level 106 MMOL/L (98-107) Carbon Dioxide Level 22 MMOL/L (21-32) Anion Gap 9 mmol/L (5-15) Blood Urea Nitrogen 34 mg/dL (7-18) H Creatinine 2.6 MG/DL (0.55-1.30) H Estimat Glomerular Filtration Rate 23.3 mL/min (>60) Glucose Level 239 MG/DL (74-106) H Hemoglobin A1c 10.6 % (4.3-6.0) H Uric Acid 5.4 MG/DL (2.6-7.2) Calcium Level 8.7 MG/DL (8.5-10.1) Phosphorus Level 3.6 MG/DL (2.5-4.9) Magnesium Level 1.5 MG/DL (1.8-2.4) L Iron Level 34 ug/dL (50-175) L Total Iron Binding Capacity 131 ug/dL (250-450) L Percent Iron Saturation 26 % (15-50) Unsaturated Iron Binding 97 ug/dL (112-346) L Ferritin 94 NG/ML (8-388) Total Bilirubin 0.4 MG/DL (0.2-1.0) Gamma Glutamyl Transpeptidase 31 U/L (5-85) Aspartate Amino Transf (AST/SGOT) 6 U/L (15-37) L Alanine Aminotransferase (ALT/SGPT) 24 U/L (12-78) Alkaline Phosphatase 77 U/L (46-116) Troponin I 0.001 ng/mL (0.000-0.056) Pro-B-Type Natriuretic Peptide 221 pg/mL (0-125) H Total Protein 6.7 G/DL (6.4-8.2) Albumin 2.5 G/DL (3.4-5.0) L Globulin 4.2 g/dL Albumin/Globulin Ratio 0.6 (1.0-2.7) L Vitamin B12 Level 423 PG/ML (193-986) Folate 39.1 NG/ML (8.6-58.9) Thyroid Stimulating Hormone (TSH) 0.306 uiU/mL (0.358-3.740) Plan Problems: (1) Diabetic foot ulcer Assessment & Plan: Patient has history of large foot ulcers and prior infections/abscess requiring I&D. she has poorly controlled DM and in the past has had issues with distal feet. I have performed I&D on her in the past and extensive wound care to salvage extremity. She has been in rehab for some time now and being cared for there by wound team. 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 States was doing well and walking with prosthetic but developed large ulcer which is now foul smelling and draining. I have considered BKA in the past for her but will hold currently given medical condition. she presents to ED with elevated glucose levels and renal insufficiency. wound is a large distal midfoot ulcer with possible underlying infection MRI noted. now seems to have possible osteo and infection which would explain poor healing wound Signal abnormality of all 5 metatarsal stumps. Unless the amputation with very recent, (in which case signal abnormality could be reactive), findings are worrisome for osteomyelitis. Subtle signal abnormality of the lateral cuneiform, could indicate early osteomyelitis 5.1 x 2.1 x 1.3 cm fluid collection in the superficial posterior plantar fat. This is concerning for an abscess. 1.8 x 1.2 x 5.2 cm fluid collection medial to the anterior calcaneus within the deep subcutaneous fat, likewise concerning for abscess. There is a small collection which appears related to this but separate immediately anterior medically still not optimized. glucose not controlled. A1C >10 -will hold off on surgery for now -okay for diet -Abx -appreciate Podiatry input. will discuss fluid collections with them. ? drainage thank you. will follow with recs. Sandro Ramirez Jan 31, 2018 15:15
--- NOTE | 2018-01-31 15:30 | Consultation ---
DATE OF CONSULTATION: 01/31/2018 CONSULTING PHYSICIAN: Zay Schwarz DPM. REFERRING PHYSICIAN: Tobin Albert M.D. REASON FOR CONSULTATION: Chronic diabetic foot ulcers of bilateral feet, presence of peripheral vascular disease and now infection. HISTORY OF PRESENT ILLNESS: The patient is a 52-year-old female who was admitted to [facility] on January 29, 2018, for possible BKA. The patient is being followed by Dr. Ramirez as well as our service. The patient was seen in my office for further consultation beginning of January, as she was not impressed with the wound care service at her current facility. During these visits, conversations were had with the patient regarding quality of life, being able to improve her health as well as resolve her current situation with the right lower extremity. At that point, elective below-knee amputation was offered to the patient and the patient agreed. This was discussed with Dr. Ramirez at the beginning of January and he agreed to follow the patient and discussed with the patient proceeding with the below-knee amputation. She was admitted for such and was noted to be decompensated medically for procedure and required continued medical optimization for proposed procedure. PAST MEDICAL HISTORY: Significant for anxiety, sepsis, diabetes mellitus, diabetic nephropathy, history of osteomyelitis, chronic kidney disease, hypertension, peripheral vascular disease. MEDICATIONS: Per MAR and include cefepime and vancomycin. ALLERGIES: She is allergic to blood transfusions and penicillin. FAMILY HISTORY: Noncontributory. SOCIAL HISTORY: The patient currently resides in a snf facility. REVIEW OF SYSTEMS: HEENT: The patient denies any headaches, blurred vision, or ringing in the ears. CARDIORESPIRATORY: The patient denies any chest pain or shortness of breath. GENITOURINARY: The patient denies any urgency, frequency, burning upon urination, or hematuria. GASTROINTESTINAL: The patient denies any constipation, diarrhea, or blood in the stool. PHYSICAL EXAMINATION: VITAL SIGNS: Temperature is 98.5, pulse is 85, respiration rate is 18, blood pressure is 141/82, saturating 94% on room air. LOWER EXTREMITIES: Vascular, nonpalpable pedal pulses noted bilaterally. Bilateral feet are equally warm. DERMATOLOGICAL: Large full-thickness ulceration is noted at the plantar stump of the right foot, this is draining, minimal malodor is noted, periwound skin is macerated, no bone or tendon is exposed. She has 2 full-thickness ulcerations noted on the plantar aspect of the left foot in the central arch area, completely dry, no signs of infection, does not probe to bone. There is a full-thickness ulceration noted at the distal aspect of the left hallux, superficial, no signs of acute infection, no bone or tendon is exposed, wound base is granular. NEUROLOGICAL: Protective threshold is absent. MUSCULOSKELETAL: Right forefoot amputation is noted. MUSCULOSKELETAL: Reveals no bony deformity or complication. The patient is wheelchair-bound. Minimally ambulatory. LABORATORY DATA: White blood cell count is 4.8, hemoglobin 8.6, hematocrit 28.0, and platelet count is 188,000. Sedimentation rate is pending. Potassium is 4.5, BUN is 34, creatinine is 2.6, and glucose is 239. Hemoglobin A1c is 10.6. C-reactive protein is 4.8. Albumin is 2.5. INR is 1.1. MRI of the right foot shows signal abnormality in all 5 metatarsal stumps worrisome for osteomyelitis, subtle signal abnormality of the lateral cuneiforms could indicate early osteomyelitis, there is a 5.1 x 2.1 x 3.1 fluid collection in the superficial posterior plantar fat, possible abscess, there is also another 1.8 x 1.2 x 5.2 cm fluid collection in the area medial to the anterior calcaneus within the deep subcutaneous fat also concerning for abscess, and there is a small collection which appears related to this but separate immediately anterior. ASSESSMENT: 1. Abscess, right foot stump with osteomyelitis now. 2. Non-pressure ulcer of the right foot, chronic. 3. Complicated right foot amputation. 4. Peripheral arterial disease. 5. Diabetes mellitus with neuropathy. 6. Diabetes mellitus with hyperglycemia. 7. Diabetic foot ulcer of the left foot. PLAN: 1. We will order wound care for the left foot for the plantar left foot as well as the left hallux. 2. The patient was seen by me and my associate this month on multiple visits. Due to the chronic nature of the wound and poor skin flap coverage, this wound has poor prognosis. I have discussed this with the patient and she agreed that elective BKA would be her best option to resolve future morbidity. With her current infection and osteomyelitis now, I can believe that right BKA would be her best treatment. Any other option including wound care, IV antibiotics, skin grafts, etc., would not benefit this patient. The patient would need further medical optimization to ensure optimal surgical outcome for below-knee amputation. This was discussed with Dr. Ramirez yesterday. 3. Antibiotics per Infectious Disease. 4. We will follow. Thank you for the courtesy of this consultation. Zay Schwarz D.P.M. DR: Rajwinder JOB#: [id number] CC:
--- NOTE | 2018-01-31 15:34 | Internal Med Progress Note ---
Subjective Date of Service: Jan 31, 2018 Physician Name MarieAirel Attending Physician Tobin Albert MD Current Medications Medications (Trade) Dose Ordered Sig/Artemio Route PRN Reason Start Time Stop Time Status Last Admin Dose Admin Acetaminophen (Tylenol) 650 mg Q4H PRN ORAL fever 01/29/18 22:15 02/28/18 22:14 Albuterol/ Ipratropium (Albuterol/ Ipratropium) 3 ml Q4H PRN HHN Shortness of Breath 01/29/18 22:15 02/03/18 22:14 Cefepime HCl 1 gm/ Dextrose 55 ml @ 110 mls/hr DAILY IVPB 01/31/18 09:00 02/05/18 23:59 01/31/18 09:07 Dextrose (Dextrose 50%) 25 ml Q30M PRN IV Hypoglycemia 01/29/18 19:45 02/28/18 19:44 Dextrose (Dextrose 50%) 50 ml Q30M PRN IV Hypoglycemia 01/29/18 19:45 02/28/18 19:44 Diphenhydramine HCl (Benadryl) 25 mg Q6H PRN ORAL Itching/Pruritis 01/29/18 19:45 02/28/18 19:44 Docusate Sodium (Colace) 100 mg TID ORAL 01/30/18 18:00 02/28/18 20:59 01/30/18 17:09 Epoetin Carroll (Procrit (for non ESRD use)) 10,000 units MON-WED-FRI SUBQ 02/02/18 21:00 03/04/18 20:59 Gadobutrol (Gadavist) 7.5 mmol NOW PRN IV Radiology Procedure 01/29/18 19:45 02/02/18 19:34 Heparin Sodium (Porcine) (Heparin 5000 units/ml) 5,000 units EVERY 12 HOURS SUBQ 01/29/18 22:45 02/28/18 22:44 01/31/18 09:08 Insulin Aspart (NovoLOG) BEFORE MEALS AND HS SUBQ 01/30/18 06:30 03/01/18 06:29 01/31/18 11:48 Iron Sucrose 200 mg/Sodium Chloride 120 ml @ 240 mls/hr ONCE IV 01/31/18 16:00 01/31/18 17:00 Magnesium Sulfate 100 ml @ 100 mls/hr Q1H IVPB 01/31/18 15:00 01/31/18 16:59 Metronidazole (Flagyl) 500 mg Q8HR ORAL 01/30/18 22:00 02/06/18 21:59 01/31/18 13:34 Mirtazapine (Remeron) 7.5 mg BEDTIME PRN ORAL insomnia 01/31/18 01:00 03/02/18 00:59 Morphine Sulfate (Morphine Sulfate) 1 mg Q3H PRN IVP Mild Pain (Pain Scale 1-3) 01/29/18 19:45 02/05/18 19:44 Morphine Sulfate (Morphine Sulfate) 2 mg Q4H PRN IVP Moderate Pain (Pain Scale 4-6) 01/29/18 22:15 02/05/18 22:14 Morphine Sulfate (Morphine Sulfate) 4 mg Q3H PRN IVP Severe Pain (Pain Scale 7-10) 01/29/18 19:45 02/05/18 19:44 Nitroglycerin (Ntg) 0.4 mg Q5M PRN SL Prn Chest Pain 01/29/18 22:15 02/28/18 22:14 Ondansetron HCl (Zofran) 4 mg Q6H PRN IVP Nausea & Vomiting 01/29/18 22:15 02/28/18 22:14 Pantoprazole (Protonix) 40 mg DAILY ORAL 01/30/18 13:30 03/01/18 13:29 01/31/18 09:07 Polyethylene Glycol (Miralax) 17 gm DAILYPRN PRN ORAL Constipation 01/29/18 22:15 02/28/18 22:14 Sodium Chloride 1,000 ml @ 50 mls/hr Q20H IV 01/30/18 13:30 03/01/18 13:29 01/31/18 09:08 Vancomycin/Sodium Chloride 250 ml @ 166.667 mls/hr Q24H IVPB 01/31/18 00:00 02/05/18 00:00 01/31/18 00:41 Allergies: Coded Allergies: PENICILLINS (Verified Allergy, Severe, SWOLLEN BODY, 04/23/17) Per Daughter, patient has tolerated Amoxicillin Tolerated Ceftriaxone 04/22/17 Uncoded Allergies: Blood Transfusion (Adverse Reaction, Unknown, 06/29/17) Pt states that she develops lower extremity wounds after blood transfusions ROS Limited/Unobtainable: No Constitutional: Reports: no symptoms HEENT: Reports: no symptoms Cardiovascular: Reports: no symptoms Respiratory: Reports: no symptoms Gastrointestinal/Abdominal: Reports: no symptoms Genitourinary: Reports: no symptoms Neurologic/Psychiatric: Reports: no symptoms Subjective 52 YO F admitted with right foot pain and abscess. Now osteomyelitis. Cover for Int Ramesh-Dr Albert Objective Last Vital Signs Date Time Temp Pulse Resp B/P (MAP) Pulse Ox O2 Delivery O2 Flow Rate FiO2 01/31/18 12:00 98.6 80 18 146/84 (104) 99 80 01/31/18 08:30 Room Air 01/31/18 08:07 21 General Appearance: WD/WN, no apparent distress, alert EENT: PERRL/EOMI, normal ENT inspection Neck: non-tender, normal alignment, supple, normal inspection Cardiovascular: normal peripheral pulses, normal rate, regular rhythm, no gallop/murmur, no JVD Respiratory/Chest: chest wall non-tender, lungs clear, normal breath sounds, no respiratory distress, no accessory muscle use Abdomen: normal bowel sounds, non tender, soft, no organomegaly, no mass Extremities: normal range of motion, non-tender, other - right foot dresssing clean and dry 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, no motor/sensory deficits Skin: normal pigmentation, warm/dry Laboratory Tests Test 01/30/18 20:50 01/31/18 05:00 Urine Color Pale yellow Urine Appearance Clear Urine pH 6.5 (4.5-8.0) Urine Specific [place] 1.010 (1.005-1.035) Urine Protein 3+ (NEGATIVE) H Urine Glucose (UA) 1+ (NEGATIVE) H Urine Ketones Negative (NEGATIVE) Urine Blood Negative (NEGATIVE) Urine Nitrite Negative (NEGATIVE) Urine Bilirubin Negative (NEGATIVE) Urine Urobilinogen Normal MG/DL (0.0-1.0) Urine Leukocyte Esterase Negative (NEGATIVE) Urine RBC 0-2 /HPF (0 - 2) Urine WBC 0 /HPF (0 - 2) Urine Squamous Epithelial Cells Few /LPF (NONE/OCC) Urine Bacteria Occasional /HPF (NONE) White Blood Count 4.8 K/UL (4.8-10.8) Red Blood Count 3.22 M/UL (4.20-5.40) L Hemoglobin 8.6 G/DL (12.0-16.0) L Hematocrit 28.0 % (37.0-47.0) L Mean Corpuscular Volume 87 FL (80-99) Mean Corpuscular Hemoglobin 26.7 PG (27.0-31.0) L Mean Corpuscular Hemoglobin Concent 30.8 G/DL (32.0-36.0) L Red Cell Distribution Width 12.7 % (11.6-14.8) Platelet Count 188 K/UL (150-450) Mean Platelet Volume 8.2 FL (6.5-10.1) Neutrophils (%) (Auto) 54.5 % (45.0-75.0) Lymphocytes (%) (Auto) 31.2 % (20.0-45.0) Monocytes (%) (Auto) 11.3 % (1.0-10.0) H Eosinophils (%) (Auto) 2.2 % (0.0-3.0) Basophils (%) (Auto) 0.9 % (0.0-2.0) Erythrocyte Sedimentation Rate 87 MM/HR (0-30) H Sodium Level 137 MMOL/L (136-145) Potassium Level 4.5 MMOL/L (3.5-5.1) Chloride Level 106 MMOL/L (98-107) Carbon Dioxide Level 22 MMOL/L (21-32) Anion Gap 9 mmol/L (5-15) Blood Urea Nitrogen 34 mg/dL (7-18) H Creatinine 2.6 MG/DL (0.55-1.30) H Estimat Glomerular Filtration Rate 23.3 mL/min (>60) Glucose Level 239 MG/DL (74-106) H Hemoglobin A1c 10.6 % (4.3-6.0) H Uric Acid 5.4 MG/DL (2.6-7.2) Calcium Level 8.7 MG/DL (8.5-10.1) Phosphorus Level 3.6 MG/DL (2.5-4.9) Magnesium Level 1.5 MG/DL (1.8-2.4) L Iron Level 34 ug/dL (50-175) L Total Iron Binding Capacity 131 ug/dL (250-450) L Percent Iron Saturation 26 % (15-50) Unsaturated Iron Binding 97 ug/dL (112-346) L Ferritin 94 NG/ML (8-388) Total Bilirubin 0.4 MG/DL (0.2-1.0) Gamma Glutamyl Transpeptidase 31 U/L (5-85) Aspartate Amino Transf (AST/SGOT) 6 U/L (15-37) L Alanine Aminotransferase (ALT/SGPT) 24 U/L (12-78) Alkaline Phosphatase 77 U/L (46-116) Troponin I 0.001 ng/mL (0.000-0.056) Pro-B-Type Natriuretic Peptide 221 pg/mL (0-125) H Total Protein 6.7 G/DL (6.4-8.2) Albumin 2.5 G/DL (3.4-5.0) L Globulin 4.2 g/dL Albumin/Globulin Ratio 0.6 (1.0-2.7) L Vitamin B12 Level 423 PG/ML (193-986) Folate 39.1 NG/ML (8.6-58.9) Thyroid Stimulating Hormone (TSH) 0.306 uiU/mL (0.358-3.740) Microbiology Date/Time Source Procedure Growth Status 01/29/18 19:15 Skin Gram Stain - Final Resulted 01/29/18 19:15 Wound Culture - Preliminary Gram Negative Oz Staphylococcus Aureus Streptococcus Group G Resulted 01/29/18 21:40 Nose MRSA Culture - Final Staphylococcus Aureus - Mrsa Complete 01/29/18 21:40 Rectum Received Intake and Output 01/30/18 01/31/18 19:00 07:00 Intake Total 1775 ml 858.334 ml Balance 1775 ml 858.334 ml Intake Oral 800 ml IV Total 975 ml 858.334 ml # Voids 3 1 Assessment/Plan Problem List: (1) Hypercholesteremia (2) Abscess of right foot (3) Osteomyelitis of right foot Assessment & Plan: Continue cefepime and vanco per ID. See podiatry note- recommend BKA. Patient requests antibiotics for now and will consider BKA (4) HTN (hypertension) (5) Diabetes mellitus Assessment & Plan: Continue novolog sliding scale. (6) Peripheral vascular disease Status: not improved Ariel Marie MD Jan 31, 2018 15:34
[2018-01-31 16:00] VITALS: BP 158/92
[2018-01-31] MEDS ORDERED: Iron Sucrose 200 MG in NS 110 ML IV SCH (16:00)
[2018-01-31 20:00] VITALS: BP 149/87
--- NOTE | 2018-01-31 21:54 | General Progress Note ---
Assessment/Plan Problem List: (1) Anxiety disorder ICD Codes: F41.9 - Anxiety disorder, unspecified SNOMED: 136043455 Status: stable Assessment/Plan remron 7.5 mg qhs prn provided ro.st Subjective Neurologic/Psychiatric: Reports: anxiety Allergies: Coded Allergies: PENICILLINS (Verified Allergy, Severe, SWOLLEN BODY, 04/23/17) Per Daughter, patient has tolerated Amoxicillin Tolerated Ceftriaxone 04/22/17 Uncoded Allergies: Blood Transfusion (Adverse Reaction, Unknown, 06/29/17) Pt states that she develops lower extremity wounds after blood transfusions Subjective the pt was pleasant spoke about ptsd and past trauma remeron increased her appetite in past Objective Last 24 Hour Vital Signs Date Time Temp Pulse Resp B/P (MAP) Pulse Ox O2 Delivery O2 Flow Rate FiO2 01/31/18 21:00 Room Air 01/31/18 20:00 98.0 83 18 149/87 (107) 99 83 01/31/18 16:00 97.8 78 18 158/92 (114) 97 78 01/31/18 12:00 98.6 80 18 146/84 (104) 99 80 01/31/18 08:30 Room Air 01/31/18 08:07 82 18 Room Air 21 01/31/18 08:00 98.5 85 18 141/82 (101) 94 85 01/31/18 04:00 98.5 81 19 138/81 (100) 97 01/31/18 00:00 98.6 88 18 123/62 (82) 98 Intake and Output 01/30/18 01/31/18 19:00 07:00 Intake Total 1775 ml 858.334 ml Balance 1775 ml 858.334 ml Intake Oral 800 ml IV Total 975 ml 858.334 ml # Voids 3 1 Laboratory Tests 01/31/18 05:00: White Blood Count 4.8, Red Blood Count 3.22L, Hemoglobin 8.6L, Hematocrit 28.0L , Mean Corpuscular Volume 87, Mean Corpuscular Hemoglobin 26.7L, Mean Corpuscular Hemoglobin Concent 30.8L, Red Cell Distribution Width 12.7, Platelet Count 188, Mean Platelet Volume 8.2, Neutrophils (%) (Auto) 54.5, Lymphocytes (%) (Auto) 31.2, Monocytes (%) (Auto) 11.3H, Eosinophils (%) (Auto) 2.2, Basophils (%) (Auto) 0.9, Erythrocyte Sedimentation Rate 87H, Sodium Level 137, Potassium Level 4.5, Chloride Level 106, Carbon Dioxide Level 22, Anion Gap 9, Blood Urea Nitrogen 34H, Creatinine 2.6H, Estimat Glomerular Filtration Rate 23.3, Glucose Level 239H, Hemoglobin A1c 10.6H, Uric Acid 5.4, Calcium Level 8.7, Phosphorus Level 3.6, Magnesium Level 1.5L, Iron Level 34L, Total Iron Binding Capacity 131L, Percent Iron Saturation 26, Unsaturated Iron Binding 97L, Ferritin 94, Total Bilirubin 0.4, Gamma Glutamyl Transpeptidase 31 , Aspartate Amino Transf (AST/SGOT) 6L, Alanine Aminotransferase (ALT/SGPT) 24, Alkaline Phosphatase 77, Troponin I 0.001, Pro-B-Type Natriuretic Peptide 221H, Total Protein 6.7, Albumin 2.5L, Globulin 4.2, Albumin/Globulin Ratio 0.6L, Vitamin B12 Level 423, Folate 39.1, Thyroid Stimulating Hormone (TSH) 0.306L Height (Feet): 5 Height (Inches): 4.00 Weight (Pounds): 248 General Appearance: alert, morbidly obese Neurologic: oriented x 3, responsive, depressed affect Remington Kimbrough MD Jan 31, 2018 21:54
[2018-02-01] VITALS: BP 136/80
[2018-02-01] MEDS: Vancomycin 750mg/NS 250ml IVPB SCH (00:39)
[2018-02-01 04:00] VITALS: BP 137/88
[2018-02-01] MEDS: metroNIDAZOLE 500mg tab ORAL SCH ×3 (05:51→21:06)
[2018-02-01] MEDS: NovoLOG Insulin Flexpen SUBQ SCH ×4 (06:34→21:06)
[2018-02-01 07:49] LABS: BASOPHILS % (AUTO) 0.9 % (0.0-2.0); EOSINOPHILS % (AUTO) 2.4 % (0.0-3.0); HEMATOCRIT 28.4 % (37.0-47.0); HEMOGLOBIN 8.9 G/DL (12.0-16.0); LYMPHOCYTES % (AUTO) 35.9 % (20.0-45.0); MEAN CORPUSCULAR VOLUME 86 FL (80-99); MONOCYTES % (AUTO) 13.6 % (1.0-10.0); NEUTROPHILS % (AUTO) 47.2 % (45.0-75.0); PLATELET COUNT 209 K/UL (150-450); RED BLOOD COUNT 3.32 M/UL (4.20-5.40); RED CELL DISTRIBUTION WIDTH 12.9 % (11.6-14.8); WHITE BLOOD COUNT 4.5 K/UL (4.8-10.8)
[2018-02-01 08:00] VITALS: BP 130/88
[2018-02-01 08:03] LABS: ANION GAP 10 mmol/L (5-15); BLOOD UREA NITROGEN 35 mg/dL (7-18); CARBON DIOXIDE 20 MMOL/L (21-32); CHLORIDE 106 MMOL/L (98-107); CREATININE 2.5 MG/DL (0.55-1.30); POTASSIUM 4.5 MMOL/L (3.5-5.1); SODIUM 136 MMOL/L (136-145)
[2018-02-01] MEDS: Cefepime 1gm in D5W 55ml IVPB SCH (08:36)
[2018-02-01] MEDS: Heparin 5000 units/ml inj SUBQ SCH ×2 (08:37→21:05)
[2018-02-01] MEDS: Docusate 100mg cap ORAL SCH ×3 (08:37→17:08)
[2018-02-01] MEDS ORDERED: Betadine 4oz Bottle TOPIC ONE (09:00)
[2018-02-01 11:55] VITALS: BP 133/84
--- NOTE | 2018-02-01 13:54 | General Surgery Progress Note ---
General Surgery-Progress Note Subjective Additional Comments no acute events. doing well Objective Last 24 Hour Vital Signs Date Time Temp Pulse Resp B/P (MAP) Pulse Ox O2 Delivery O2 Flow Rate FiO2 02/01/18 11:55 98.0 77 18 133/84 (100) 99 77 02/01/18 08:15 Room Air 02/01/18 08:11 84 18 Room Air 21 02/01/18 08:00 97.9 80 18 130/88 (102) 98 02/01/18 04:00 97.7 79 18 137/88 (104) 97 79 02/01/18 00:00 98.0 78 18 136/80 (98) 97 78 01/31/18 21:00 Room Air 01/31/18 20:00 98.0 83 18 149/87 (107) 99 83 01/31/18 19:00 79 18 Room Air 21 01/31/18 16:00 97.8 78 18 158/92 (114) 97 78 I&O Intake and Output 01/31/18 02/01/18 19:00 07:00 Intake Total 600 ml 1033.334 ml Balance 600 ml 1033.334 ml Intake Oral 600 ml 250 ml IV Total 783.334 ml # Voids 3 4 # Bowel Movements 2 Dressing: saturated Wound: other Drains: other Cardiovascular: RSR Respiratory: clear Abdomen: soft, flat, non-tender, present bowel sounds Extremities: other Laboratory Tests Test 02/01/18 07:13 White Blood Count 4.5 K/UL (4.8-10.8) L Red Blood Count 3.32 M/UL (4.20-5.40) L Hemoglobin 8.9 G/DL (12.0-16.0) L Hematocrit 28.4 % (37.0-47.0) L Mean Corpuscular Volume 86 FL (80-99) Mean Corpuscular Hemoglobin 26.8 PG (27.0-31.0) L Mean Corpuscular Hemoglobin Concent 31.3 G/DL (32.0-36.0) L Red Cell Distribution Width 12.9 % (11.6-14.8) Platelet Count 209 K/UL (150-450) Mean Platelet Volume 8.5 FL (6.5-10.1) Neutrophils (%) (Auto) 47.2 % (45.0-75.0) Lymphocytes (%) (Auto) 35.9 % (20.0-45.0) Monocytes (%) (Auto) 13.6 % (1.0-10.0) H Eosinophils (%) (Auto) 2.4 % (0.0-3.0) Basophils (%) (Auto) 0.9 % (0.0-2.0) Sodium Level 136 MMOL/L (136-145) Potassium Level 4.5 MMOL/L (3.5-5.1) Chloride Level 106 MMOL/L (98-107) Carbon Dioxide Level 20 MMOL/L (21-32) L Anion Gap 10 mmol/L (5-15) Blood Urea Nitrogen 35 mg/dL (7-18) H Creatinine 2.5 MG/DL (0.55-1.30) H Estimat Glomerular Filtration Rate 24.2 mL/min (>60) Glucose Level 206 MG/DL (74-106) H Calcium Level 9.0 MG/DL (8.5-10.1) Plan Problems: (1) Diabetic foot ulcer Assessment & Plan: Patient has history of large foot ulcers and prior infections/abscess requiring I&D. she has poorly controlled DM and in the past has had issues with distal feet. I have performed I&D on her in the past and extensive wound care to salvage extremity. She has been in rehab for some time now and being cared for there by wound team. 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 States was doing well and walking with prosthetic but developed large ulcer which is now foul smelling and draining. I have considered BKA in the past for her but will hold currently given medical condition. she presents to ED with elevated glucose levels and renal insufficiency. wound is a large distal midfoot ulcer with possible underlying infection MRI noted. now seems to have possible osteo and infection which would explain poor healing wound Signal abnormality of all 5 metatarsal stumps. Unless the amputation with very recent, (in which case signal abnormality could be reactive), findings are worrisome for osteomyelitis. Subtle signal abnormality of the lateral cuneiform, could indicate early osteomyelitis 5.1 x 2.1 x 1.3 cm fluid collection in the superficial posterior plantar fat. This is concerning for an abscess. 1.8 x 1.2 x 5.2 cm fluid collection medial to the anterior calcaneus within the deep subcutaneous fat, likewise concerning for abscess. There is a small collection which appears related to this but separate immediately anterior medically still not optimized. glucose not controlled. A1C >10 Reviewed MRI findings with patient. discussed clinical condition with her in detail. given MRI findings and clinical exam I agree with Podiatry and would benefit from BKA. I discussed this with patient and rational for why BKA would be beneficial. I explained to her the risks and benefits to surgery. In her given medical state she is at high risk for infection and wound failure/flap failure. She has DM uncontrolled with complications such as PVD and renal insufficiency. The changes of salvaging what she has now is low given above but the risk of morbidities from surgery there. I discussed alternatives to surgery with patient and recommended against them. There is no role for skin graft in her current condition and would not be recommended. if it were just a wound, could cont with would care for some time and see if improvement but unfortunately more than just a wound. she has underlying tissue abnormalities and potential osteo / abscess. If patient did not want surgery / BKA next option would be buttermaker Abx but not sure if this would cure infection for her. furthermore, could cause more injury to renal function. After discussing above in detail with patient, she stated that she does not want surgery now. she understands risk and wants abx and wound care. i explained that this is unlikey to resolve issues and she expressed that she understood but is not ready for surgery yet. -okay for diet -Abx -appreciate Podiatry input. thank you. will follow with recs. Sandro Ramirez Feb 01, 2018 13:54
--- NOTE | 2018-02-01 14:16 | Cardiology Report ---
APPROVED REPORT EKG Measurement Heart [id number] [place] [id number] Normal sinus rhythm Possible Left atrial enlargement Left axis deviation Abnormal ECG
--- NOTE | 2018-02-01 14:54 | Nephrology Progress Note ---
Assessment/Plan Problem List: (1) Diabetic nephropathy (2) Anemia in chronic kidney disease (3) CKD (chronic kidney disease) (4) Diabetic foot ulcer (5) Peripheral vascular disease Assessment Renal failure- Likely Diabetic nephropathy HTN PVD Diabetic foot ulcers / Osteo Anemia of CKD Multiple allergies Ua 3+ proteinuria Avoid nephrotoxics GARRISON kidney 2D echo Anemia li Monitor renal parameters Per orders Plan Avoid nephrotoxics GARRISON kidney pending 2D echo pending Anemia li: start EPO and IV iron Monitor renal parameters Per orders Subjective ROS Limited/Unobtainable: No Objective Objective Last 24 Hour Vital Signs Date Time Temp Pulse Resp B/P (MAP) Pulse Ox O2 Delivery O2 Flow Rate FiO2 02/01/18 11:55 98.0 77 18 133/84 (100) 99 77 02/01/18 08:15 Room Air 02/01/18 08:11 84 18 Room Air 21 02/01/18 08:00 97.9 80 18 130/88 (102) 98 02/01/18 04:00 97.7 79 18 137/88 (104) 97 79 02/01/18 00:00 98.0 78 18 136/80 (98) 97 78 01/31/18 21:00 Room Air 01/31/18 20:00 98.0 83 18 149/87 (107) 99 83 01/31/18 19:00 79 18 Room Air 21 01/31/18 16:00 97.8 78 18 158/92 (114) 97 78 Intake and Output 01/31/18 02/01/18 19:00 07:00 Intake Total 600 ml 1033.334 ml Balance 600 ml 1033.334 ml Intake Oral 600 ml 250 ml IV Total 783.334 ml # Voids 3 4 # Bowel Movements 2 Laboratory Tests 02/01/18 07:13: White Blood Count 4.5L, Red Blood Count 3.32L, Hemoglobin 8.9L, Hematocrit 28.4L , Mean Corpuscular Volume 86, Mean Corpuscular Hemoglobin 26.8L, Mean Corpuscular Hemoglobin Concent 31.3L, Red Cell Distribution Width 12.9, Platelet Count 209, Mean Platelet Volume 8.5, Neutrophils (%) (Auto) 47.2, Lymphocytes (%) (Auto) 35.9, Monocytes (%) (Auto) 13.6H, Eosinophils (%) (Auto) 2.4, Basophils (%) (Auto) 0.9, Sodium Level 136, Potassium Level 4.5, Chloride Level 106, Carbon Dioxide Level 20L, Anion Gap 10, Blood Urea Nitrogen 35H, Creatinine 2.5H, Estimat Glomerular Filtration Rate 24.2, Glucose Level 206H, Calcium Level 9.0 Height (Feet): 5 Height (Inches): 4.00 Weight (Pounds): 248 General Appearance: no apparent distress Cardiovascular: normal rate Respiratory/Chest: decreased breath sounds Abdomen: soft Objective no change Wing Valadez MD Feb 01, 2018 14:54
[2018-02-01 16:18] VITALS: BP 156/97
--- NOTE | 2018-02-01 16:48 | Internal Med Progress Note ---
Subjective Physician Name Tobin Albert Attending Physician Tobin Albert MD Current Medications Medications (Trade) Dose Ordered Sig/Artemio Route PRN Reason Start Time Stop Time Status Last Admin Dose Admin Acetaminophen (Tylenol) 650 mg Q4H PRN ORAL fever 01/29/18 22:15 02/28/18 22:14 Albuterol/ Ipratropium (Albuterol/ Ipratropium) 3 ml Q4H PRN HHN Shortness of Breath 01/29/18 22:15 02/03/18 22:14 Cefepime HCl 1 gm/ Dextrose 55 ml @ 110 mls/hr DAILY IVPB 01/31/18 09:00 02/05/18 23:59 02/01/18 08:36 Dextrose (Dextrose 50%) 25 ml Q30M PRN IV Hypoglycemia 01/29/18 19:45 02/28/18 19:44 Dextrose (Dextrose 50%) 50 ml Q30M PRN IV Hypoglycemia 01/29/18 19:45 02/28/18 19:44 Diphenhydramine HCl (Benadryl) 25 mg Q6H PRN ORAL Itching/Pruritis 01/29/18 19:45 02/28/18 19:44 Docusate Sodium (Colace) 100 mg TID ORAL 01/30/18 18:00 02/28/18 20:59 01/30/18 17:09 Epoetin Carroll (Procrit (for non ESRD use)) 10,000 units MON-WED-FRI SUBQ 02/02/18 21:00 03/04/18 20:59 Gadobutrol (Gadavist) 7.5 mmol NOW PRN IV Radiology Procedure 01/29/18 19:45 02/02/18 19:34 Heparin Sodium (Porcine) (Heparin 5000 units/ml) 5,000 units EVERY 12 HOURS SUBQ 01/29/18 22:45 02/28/18 22:44 02/01/18 08:37 Insulin Aspart (NovoLOG) BEFORE MEALS AND HS SUBQ 01/30/18 06:30 03/01/18 06:29 02/01/18 12:03 Metronidazole (Flagyl) 500 mg Q8HR ORAL 01/30/18 22:00 02/06/18 21:59 02/01/18 14:12 Mirtazapine (Remeron) 7.5 mg BEDTIME PRN ORAL insomnia 01/31/18 01:00 03/02/18 00:59 Morphine Sulfate (Morphine Sulfate) 1 mg Q3H PRN IVP Mild Pain (Pain Scale 1-3) 01/29/18 19:45 02/05/18 19:44 Morphine Sulfate (Morphine Sulfate) 2 mg Q4H PRN IVP Moderate Pain (Pain Scale 4-6) 01/29/18 22:15 02/05/18 22:14 Morphine Sulfate (Morphine Sulfate) 4 mg Q3H PRN IVP Severe Pain (Pain Scale 7-10) 01/29/18 19:45 02/05/18 19:44 Nitroglycerin (Ntg) 0.4 mg Q5M PRN SL Prn Chest Pain 01/29/18 22:15 02/28/18 22:14 Ondansetron HCl (Zofran) 4 mg Q6H PRN IVP Nausea & Vomiting 01/29/18 22:15 02/28/18 22:14 Pantoprazole (Protonix) 40 mg DAILY ORAL 01/30/18 13:30 03/01/18 13:29 02/01/18 08:36 Polyethylene Glycol (Miralax) 17 gm DAILYPRN PRN ORAL Constipation 01/29/18 22:15 02/28/18 22:14 Sodium Chloride 1,000 ml @ 50 mls/hr Q20H IV 01/30/18 13:30 03/01/18 13:29 02/01/18 04:37 Vancomycin/Sodium Chloride 250 ml @ 166.667 mls/hr Q24H IVPB 01/31/18 00:00 02/05/18 00:00 02/01/18 00:39 Allergies: Coded Allergies: PENICILLINS (Verified Allergy, Severe, SWOLLEN BODY, 04/23/17) Per Daughter, patient has tolerated Amoxicillin Tolerated Ceftriaxone 04/22/17 Uncoded Allergies: Blood Transfusion (Adverse Reaction, Unknown, 06/29/17) Pt states that she develops lower extremity wounds after blood transfusions Subjective awake, alert, responsive, sitting up on chair, NAD, feeling okay. No CP or SOB Objective Last Vital Signs Date Time Temp Pulse Resp B/P (MAP) Pulse Ox O2 Delivery O2 Flow Rate FiO2 02/01/18 16:18 98.4 78 18 156/97 (116) 98 02/01/18 08:15 Room Air 02/01/18 08:11 21 Laboratory Tests Test 02/01/18 07:13 White Blood Count 4.5 K/UL (4.8-10.8) L Red Blood Count 3.32 M/UL (4.20-5.40) L Hemoglobin 8.9 G/DL (12.0-16.0) L Hematocrit 28.4 % (37.0-47.0) L Mean Corpuscular Volume 86 FL (80-99) Mean Corpuscular Hemoglobin 26.8 PG (27.0-31.0) L Mean Corpuscular Hemoglobin Concent 31.3 G/DL (32.0-36.0) L Red Cell Distribution Width 12.9 % (11.6-14.8) Platelet Count 209 K/UL (150-450) Mean Platelet Volume 8.5 FL (6.5-10.1) Neutrophils (%) (Auto) 47.2 % (45.0-75.0) Lymphocytes (%) (Auto) 35.9 % (20.0-45.0) Monocytes (%) (Auto) 13.6 % (1.0-10.0) H Eosinophils (%) (Auto) 2.4 % (0.0-3.0) Basophils (%) (Auto) 0.9 % (0.0-2.0) Sodium Level 136 MMOL/L (136-145) Potassium Level 4.5 MMOL/L (3.5-5.1) Chloride Level 106 MMOL/L (98-107) Carbon Dioxide Level 20 MMOL/L (21-32) L Anion Gap 10 mmol/L (5-15) Blood Urea Nitrogen 35 mg/dL (7-18) H Creatinine 2.5 MG/DL (0.55-1.30) H Estimat Glomerular Filtration Rate 24.2 mL/min (>60) Glucose Level 206 MG/DL (74-106) H Calcium Level 9.0 MG/DL (8.5-10.1) Microbiology Date/Time Source Procedure Growth Status 01/29/18 19:15 Skin Gram Stain - Final Complete 01/29/18 19:15 Wound Culture - Final Proteus Mirabilis Staphylococcus Aureus - Mrsa Streptococcus Group G Complete 01/29/18 21:40 Nose MRSA Culture - Final Staphylococcus Aureus - Mrsa Complete 01/30/18 21:40 Rectum VRE Culture - Final NO VANCOMYCIN RESISTANT ENTEROCOCCUS ... Complete 01/29/18 21:40 Rectum - Final NO CARBAPENEM-RESISTANT ENTEROBACTERI... Complete Intake and Output 01/31/18 02/01/18 19:00 07:00 Intake Total 600 ml 1033.334 ml Balance 600 ml 1033.334 ml Intake Oral 600 ml 250 ml IV Total 783.334 ml # Voids 3 4 # Bowel Movements 2 Objective GENERAL: The patient is awake, responsive, in no acute distress. HEAD AND NECK: Pupils are equal and reactive to light. Extraocular movements are intact. Neck was supple. No JVD. LUNGS: Good air entry. No wheezing or rales. HEART: S1 and S2. Distant heart sounds. No murmurs or gallops. ABDOMEN: Soft, nondistended, and nontender. Morbidly obese. EXTREMITIES: No cyanosis, clubbing, or edema. Right lower extremity has a transmetatarsal amputation with dressing. RECTAL/GENITOURINARY: Refused and deferred. PSYCHIATRIC: Mood and affect is intact. Assessment/Plan Assessment/Plan 1. Right foot transmetatarsal infected with underlying abscess as well as osteomyelitis. 2. Severe peripheral vascular disease. 3. Chronic kidney disease. 4. Diabetes type 2, uncontrolled. 5. Diabetic nephropathy. 6. Chronic foot ulcer. 7. History of bacteremia. 8. Hypertension. 9. Prior history of sepsis. 10.anemia of CKD. PLAN: 1. In medical/surgical. 2. We will follow up with Dr. Ramirez, Patient refused BKA, 3. We will monitor laboratory and cultures. 4. Broad-spectrum antibiotic with vancomycin, Flagyl, and cefepime. 5. Code status is Full Code. 6. Accu-Chek with sliding scale. 7. Heparin 5000 q.8 hours. 8. We will follow up with Dr. Valadez from Nephrology and Dr. Schwarz Podiatry consultation. 9. Piccline placement for halfway abx therapy, Tobin Albert M.D. Tobin Albert MD Feb 01, 2018 16:48
[2018-02-01] MEDS ORDERED: Lidocaine 1% Plain 30 ml INJ PRN (17:00)
[2018-02-01] MEDS ORDERED: Heparin 2000 units/Ns 1000ml INJ PRN (17:00)
[2018-02-01 20:00] VITALS: BP 155/89
[2018-02-01] MEDS: Dyna-Hex 2% Top Sol 2oz TOPIC SCH (21:04)
--- NOTE | 2018-02-01 22:29 | General Progress Note ---
Assessment/Plan Problem List: (1) Anxiety disorder ICD Codes: F41.9 - Anxiety disorder, unspecified SNOMED: 958391350 Assessment/Plan remron 7.5 mg qhs prn provided st Subjective Neurologic/Psychiatric: Reports: anxiety Allergies: Coded Allergies: PENICILLINS (Verified Allergy, Severe, SWOLLEN BODY, 04/23/17) Per Daughter, patient has tolerated Amoxicillin Tolerated Ceftriaxone 04/22/17 Uncoded Allergies: Blood Transfusion (Adverse Reaction, Unknown, 06/29/17) Pt states that she develops lower extremity wounds after blood transfusions Objective Last 24 Hour Vital Signs Date Time Temp Pulse Resp B/P (MAP) Pulse Ox O2 Delivery O2 Flow Rate FiO2 02/01/18 20:22 77 20 Room Air 21 02/01/18 20:00 98.2 80 19 155/89 (111) 98 80 02/01/18 16:18 98.4 78 18 156/97 (116) 98 02/01/18 11:55 98.0 77 18 133/84 (100) 99 77 02/01/18 08:15 Room Air 02/01/18 08:11 84 18 Room Air 21 02/01/18 08:00 97.9 80 18 130/88 (102) 98 02/01/18 04:00 97.7 79 18 137/88 (104) 97 79 02/01/18 00:00 98.0 78 18 136/80 (98) 97 78 Intake and Output 01/31/18 02/01/18 19:00 07:00 Intake Total 600 ml 1033.334 ml Balance 600 ml 1033.334 ml Intake Oral 600 ml 250 ml IV Total 783.334 ml # Voids 3 4 # Bowel Movements 2 Laboratory Tests 02/01/18 07:13: White Blood Count 4.5L, Red Blood Count 3.32L, Hemoglobin 8.9L, Hematocrit 28.4L , Mean Corpuscular Volume 86, Mean Corpuscular Hemoglobin 26.8L, Mean Corpuscular Hemoglobin Concent 31.3L, Red Cell Distribution Width 12.9, Platelet Count 209, Mean Platelet Volume 8.5, Neutrophils (%) (Auto) 47.2, Lymphocytes (%) (Auto) 35.9, Monocytes (%) (Auto) 13.6H, Eosinophils (%) (Auto) 2.4, Basophils (%) (Auto) 0.9, Sodium Level 136, Potassium Level 4.5, Chloride Level 106, Carbon Dioxide Level 20L, Anion Gap 10, Blood Urea Nitrogen 35H, Creatinine 2.5H, Estimat Glomerular Filtration Rate 24.2, Glucose Level 206H, Calcium Level 9.0 Height (Feet): 5 Height (Inches): 4.00 Weight (Pounds): 248 General Appearance: no apparent distress, alert Neurologic: oriented x 3 Remington Kimbrough MD Feb 01, 2018 22:29
[2018-02-02] VITALS: BP 152/92
[2018-02-02] MEDS: Vancomycin 1gm in D5W 275ml IVPB SCH (02:43)
[2018-02-02 04:00] VITALS: BP 121/73
[2018-02-02 05:48] LABS: BASOPHILS % (AUTO) 1.1 % (0.0-2.0); HEMATOCRIT 28.8 % (37.0-47.0); LYMPHOCYTES % (AUTO) 33.3 % (20.0-45.0); MEAN CORPUSCULAR VOLUME 87 FL (80-99); MONOCYTES % (AUTO) 15.6 % (1.0-10.0); PLATELET COUNT 194 K/UL (150-450); RED BLOOD COUNT 3.32 M/UL (4.20-5.40); RED CELL DISTRIBUTION WIDTH 12.9 % (11.6-14.8); WHITE BLOOD COUNT 5.2 K/UL (4.8-10.8)
[2018-02-02 06:09] LABS: ALANINE AMINOTRANSFERASE 17 U/L (12-78); ALBUMIN 2.6 G/DL (3.4-5.0); ALBUMIN/GLOBULIN RATIO 0.5 (1.0-2.7); ALKALINE PHOSPHATASE 74 U/L (46-116); ANION GAP 9 mmol/L (5-15); ASPARTATE AMINO TRANSFERASE 14 U/L (15-37); BILIRUBIN,TOTAL 0.2 MG/DL (0.2-1.0); BLOOD UREA NITROGEN 31 mg/dL (7-18); CARBON DIOXIDE 22 MMOL/L (21-32); CHLORIDE 107 MMOL/L (98-107); CREATININE 2.6 MG/DL (0.55-1.30); PHOSPHORUS 4.1 MG/DL (2.5-4.9); POTASSIUM 4.5 MMOL/L (3.5-5.1); SODIUM 138 MMOL/L (136-145)
[2018-02-02] MEDS: NovoLOG Insulin Flexpen SUBQ SCH ×4 (06:22→21:30)
[2018-02-02] MEDS: metroNIDAZOLE 500mg tab ORAL SCH ×3 (06:22→21:29)
[2018-02-02 08:00] VITALS: BP 126/72
[2018-02-02] MEDS: Cefepime 1gm in D5W 55ml IVPB SCH (08:55)
[2018-02-02] MEDS: Docusate 100mg cap ORAL SCH ×3 (08:56→17:19)
[2018-02-02] MEDS: Heparin 5000 units/ml inj SUBQ SCH ×2 (08:57→21:29)
--- NOTE | 2018-02-02 10:11 | Infectious Diseases Prog Note ---
Assessment/Plan Assessment/Plan Abx: Cefepime 01/29- IV Vancomycin 01/30- Assessment: R foot stump worsening ulcer w/ suspicion for OM and abscess -wound cx: S. aureus, Group G step, P mirabilis (R Cipro/levo, bactrim; S Ceftriaxone, Cefepime) -MRI R foot: Postsurgical changes of the right foot, as described Signal abnormality of all 5 metatarsal stumps. Unless the amputation with very recent, (in which case signal abnormality could be reactive), findings are worrisome for osteomyelitis. Subtle signal abnormality of the lateral cuneiform, could indicate early osteomyelitis. 5.1 x 2.1 x 1.3 cm fluid collection in the superficial posterior plantar fat. This is concerning for an abscess. 1.8 x 1.2 x 5.2 cm fluid collection medial to the anterior calcaneus within the deep subcutaneous fat, likewise concerning for abscess. 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 Evidence of progressively worsening signal alteration presumably osteomyelitis involving bilateral malleolus regions, distal tibia plafond, talus and possibly the upper part of the calcaneus. -wound cx Neg -hx of Large abscess and polymicrobial bacteremia and fungemia 04/2017, s/p Rx -- wound cx from purulent discharge 04/22 #1: +2 MRSA, <1+ E. aerogens (S Ceftriaxone), +4 GBS; #2 +2 MRSA (S tetracycline, bactrim, vanco), +4 E. aerogens (S Ceftriaxone), E fecalis (grissom S) --Bcx 04/21 24 + GBS, 2/4 CoNS, 02/13MRSA, Bcx 04/22 1 C. glabrata; Bcx NTD; Bcx 04/27 2/4 S. epi (from same bottle) ; 04/28 BCx Neg Dm2 HTN hx of R transmetatarsal amputation GERD CKD st 4 MDD anxiety reported PNC allergy- however tolerates Amoxicillin per daughter and tolerated Ceftriaxone 04/2017 hx of VRE colonization Plan: -Continue empiric IV Vancomycin #4, Cefepime #5 and Flagyl #4 for OM and abscess -duration will be guided pending surgical intervention; if no amputation then will need PICC line and 6 weeks of IV abx -if febrile, obtain 2 sets of Bcx -f/u cx -Monitor CBC/CMP, temperatures -Sx and podiatry f/u- recommends right BKA -send deep tissue and bone cultures at the time of surgical intervention -wound care Thank you for this consultation. Will continue to follow along with you. Discussed with RN. Subjective Allergies: Coded Allergies: PENICILLINS (Verified Allergy, Severe, SWOLLEN BODY, 04/23/17) Per Daughter, patient has tolerated Amoxicillin Tolerated Ceftriaxone 04/22/17 Uncoded Allergies: Blood Transfusion (Adverse Reaction, Unknown, 06/29/17) Pt states that she develops lower extremity wounds after blood transfusions Subjective afebrile no leukocytosis Objective Vital Signs Last 24 Hour Vital Signs Date Time Temp Pulse Resp B/P (MAP) Pulse Ox O2 Delivery O2 Flow Rate FiO2 02/02/18 09:00 Room Air 02/02/18 08:00 97.9 79 19 126/72 (90) 97 02/02/18 04:00 97.7 77 18 121/73 (89) 96 02/02/18 00:00 98.2 84 19 152/92 (112) 97 02/01/18 21:00 Room Air 02/01/18 20:22 77 20 Room Air 21 02/01/18 20:00 98.2 80 19 155/89 (111) 98 80 02/01/18 16:18 98.4 78 18 156/97 (116) 98 02/01/18 11:55 98.0 77 18 133/84 (100) 99 77 Height (Feet): 5 Height (Inches): 4.00 Weight (Pounds): 248 Objective GENERAL: The patient is awake, responsive, in no acute distress. HEAD AND NECK: Pupils are equal and reactive to light. Extraocular movements are intact. Neck was supple. No JVD. LUNGS: Good air entry. No wheezing or rales. HEART: S1 and S2. Distant heart sounds. No murmurs or gallops. ABDOMEN: Soft, nondistended, and nontender. Morbidly obese. EXTREMITIES: No cyanosis, clubbing, or edema. Right lower extremity has a transmetatarsal amputation with dressing. RECTAL/GENITOURINARY: Refused and deferred. PSYCHIATRIC: Mood and affect is intact. Microbiology Date/Time Source Procedure Growth Status 01/30/18 21:40 Rectum VRE Culture - Final NO VANCOMYCIN RESISTANT ENTEROCOCCUS ... Complete Laboratory Tests Test 02/01/18 23:15 02/02/18 05:05 Vancomycin Level Trough 12.0 ug/mL (5.0-12.0) White Blood Count 5.2 K/UL (4.8-10.8) Red Blood Count 3.32 M/UL (4.20-5.40) L Hemoglobin 9.0 G/DL (12.0-16.0) L Hematocrit 28.8 % (37.0-47.0) L Mean Corpuscular Volume 87 FL (80-99) Mean Corpuscular Hemoglobin 27.0 PG (27.0-31.0) Mean Corpuscular Hemoglobin Concent 31.1 G/DL (32.0-36.0) L Red Cell Distribution Width 12.9 % (11.6-14.8) Platelet Count 194 K/UL (150-450) Mean Platelet Volume 8.3 FL (6.5-10.1) Neutrophils (%) (Auto) 47.0 % (45.0-75.0) Lymphocytes (%) (Auto) 33.3 % (20.0-45.0) Monocytes (%) (Auto) 15.6 % (1.0-10.0) H Eosinophils (%) (Auto) 3.0 % (0.0-3.0) Basophils (%) (Auto) 1.1 % (0.0-2.0) Sodium Level 138 MMOL/L (136-145) Potassium Level 4.5 MMOL/L (3.5-5.1) Chloride Level 107 MMOL/L (98-107) Carbon Dioxide Level 22 MMOL/L (21-32) Anion Gap 9 mmol/L (5-15) Blood Urea Nitrogen 31 mg/dL (7-18) H Creatinine 2.6 MG/DL (0.55-1.30) H Estimat Glomerular Filtration Rate 23.3 mL/min (>60) Glucose Level 159 MG/DL (74-106) H Calcium Level 9.0 MG/DL (8.5-10.1) Phosphorus Level 4.1 MG/DL (2.5-4.9) Magnesium Level 1.7 MG/DL (1.8-2.4) L Total Bilirubin 0.2 MG/DL (0.2-1.0) Aspartate Amino Transf (AST/SGOT) 14 U/L (15-37) L Alanine Aminotransferase (ALT/SGPT) 17 U/L (12-78) Alkaline Phosphatase 74 U/L (46-116) Total Protein 7.5 G/DL (6.4-8.2) Albumin 2.6 G/DL (3.4-5.0) L Globulin 4.9 g/dL Albumin/Globulin Ratio 0.5 (1.0-2.7) L Current Medications Medications (Trade) Dose Ordered Sig/Artemio Route PRN Reason Start Time Stop Time Status Last Admin Dose Admin Acetaminophen (Tylenol) 650 mg Q4H PRN ORAL fever 01/29/18 22:15 02/28/18 22:14 Albuterol/ Ipratropium (Albuterol/ Ipratropium) 3 ml Q4H PRN HHN Shortness of Breath 01/29/18 22:15 02/03/18 22:14 Cefepime HCl 1 gm/ Dextrose 55 ml @ 110 mls/hr DAILY IVPB 01/31/18 09:00 02/05/18 23:59 02/02/18 08:55 Chlorhexidine Gluconate (Nasreen-Hex 2%) 1 applic DAILY@2000 TOPIC 02/01/18 20:00 03/03/18 19:59 02/01/18 21:04 Dextrose (Dextrose 50%) 25 ml Q30M PRN IV Hypoglycemia 01/29/18 19:45 02/28/18 19:44 Dextrose (Dextrose 50%) 50 ml Q30M PRN IV Hypoglycemia 01/29/18 19:45 02/28/18 19:44 Diphenhydramine HCl (Benadryl) 25 mg Q6H PRN ORAL Itching/Pruritis 01/29/18 19:45 02/28/18 19:44 Docusate Sodium (Colace) 100 mg TID ORAL 01/30/18 18:00 1/19/19 20:59 02/02/18 08:56 Epoetin Carroll (Procrit (for non ESRD use)) 10,000 units FRI-FRI-FRI SUBQ 02/02/18 21:00 03/04/18 20:59 Gadobutrol (Gadavist) 7.5 mmol NOW PRN IV Radiology Procedure 01/29/18 19:45 02/02/18 19:34 Heparin Sodium (Porcine) (Heparin 5000 units/ml) 5,000 units EVERY 12 HOURS SUBQ 01/29/18 22:45 02/28/18 22:44 02/02/18 08:57 Heparin Sodium/ Sodium Chloride (Heparin 2000 units/Ns 1000ml premix) 2,000 unit ONCE PRN INJ picc line placement 02/01/18 17:00 02/02/18 16:59 Insulin Aspart (NovoLOG) BEFORE MEALS AND HS SUBQ 01/30/18 06:30 03/01/18 06:29 02/02/18 06:22 Lidocaine HCl (Xylocaine 1% 30ml) 30 ml ONCE PRN INJ picc line placement 02/01/18 17:00 02/02/18 16:59 Metronidazole (Flagyl) 500 mg Q8HR ORAL 01/30/18 22:00 02/06/18 21:59 02/02/18 06:22 Mirtazapine (Remeron) 7.5 mg BEDTIME PRN ORAL insomnia 01/31/18 01:00 03/02/18 00:59 Morphine Sulfate (Morphine Sulfate) 1 mg Q3H PRN IVP Mild Pain (Pain Scale 1-3) 01/29/18 19:45 02/05/18 19:44 Morphine Sulfate (Morphine Sulfate) 2 mg Q4H PRN IVP Moderate Pain (Pain Scale 4-6) 01/29/18 22:15 02/05/18 22:14 Morphine Sulfate (Morphine Sulfate) 4 mg Q3H PRN IVP Severe Pain (Pain Scale 7-10) 01/29/18 19:45 02/05/18 19:44 Nitroglycerin (Ntg) 0.4 mg Q5M PRN SL Prn Chest Pain 01/29/18 22:15 02/28/18 22:14 Ondansetron HCl (Zofran) 4 mg Q6H PRN IVP Nausea & Vomiting 01/29/18 22:15 02/28/18 22:14 Pantoprazole (Protonix) 40 mg DAILY ORAL 01/30/18 13:30 03/01/18 13:29 02/02/18 08:55 Polyethylene Glycol (Miralax) 17 gm DAILYPRN PRN ORAL Constipation 01/29/18 22:15 02/28/18 22:14 Sodium Chloride 1,000 ml @ 50 mls/hr Q20H IV 01/30/18 13:30 03/01/18 13:29 02/02/18 01:09 Vancomycin HCl 1 gm/Dextrose 275 ml @ 183.708 mls/hr Q24H IVPB 02/02/18 01:00 02/07/18 00:59 02/02/18 02:43 Faye Foy M.D. Feb 02, 2018 10:11
--- NOTE | 2018-02-02 10:29 | Diagnostic Imaging Report ---
Indication: Acute renal failure Technique: Grayscale and duplex images of the kidneys, retroperitoneum, and bladder were obtained. Comparison: 04/23/2017 Findings: Right kidney measures 11.6 cm in length. Left kidney measures 12.6 cm in length. Both kidneys demonstrate normal echogenicity. No hydronephrosis. Both kidneys demonstrate calcifications; based on prior CT scan presumably arterial rather than calyceal. Small cysts are seen in the right kidney. Prominent extrarenal pelvis noted on the left.. Normal inferior vena cava. Bladder is normal. Calculated bladder volume 148 mL. Patent did not technique to void at the time of exam. Impression: Essentially unremarkable exam. Negative for hydronephrosis Incidental finding of arterial calcifications and small right renal cysts.
--- NOTE | 2018-02-02 11:02 | Nephrology Progress Note ---
Assessment/Plan Problem List: (1) Diabetic nephropathy (2) Anemia in chronic kidney disease (3) CKD (chronic kidney disease) Assessment: Cr up 2.6 (4) Diabetic foot ulcer (5) Peripheral vascular disease Assessment Renal failure- Likely Diabetic nephropathy HTN PVD Diabetic foot ulcers / Osteo Anemia of CKD Multiple allergies Ua 3+ proteinuria Avoid nephrotoxics GARRISON kidney 2D echo Anemia li Monitor renal parameters Per orders Plan Avoid nephrotoxics GARRISON kidney Essentially unremarkable exam. Negative for hydronephrosis 2D echo pending Anemia li: start EPO and IV iron Monitor renal parameters Per orders Subjective ROS Limited/Unobtainable: No Constitutional: Reports: weakness Objective Objective Last 24 Hour Vital Signs Date Time Temp Pulse Resp B/P (MAP) Pulse Ox O2 Delivery O2 Flow Rate FiO2 02/02/18 09:00 Room Air 02/02/18 08:00 97.9 79 19 126/72 (90) 97 02/02/18 04:00 97.7 77 18 121/73 (89) 96 02/02/18 00:00 98.2 84 19 152/92 (112) 97 02/01/18 21:00 Room Air 02/01/18 20:22 77 20 Room Air 21 02/01/18 20:00 98.2 80 19 155/89 (111) 98 80 02/01/18 16:18 98.4 78 18 156/97 (116) 98 02/01/18 11:55 98.0 77 18 133/84 (100) 99 77 Intake and Output 02/01/18 02/02/18 18:59 06:59 Intake Total 1895 ml 533.708 ml Balance 1895 ml 533.708 ml Intake Oral 1440 ml IV Total 455 ml 533.708 ml # Voids 6 2 # Bowel Movements 1 Laboratory Tests 02/01/18 23:15: Vancomycin Level Trough 12.0 02/02/18 05:05: White Blood Count 5.2, Red Blood Count 3.32L, Hemoglobin 9.0L, Hematocrit 28.8L , Mean Corpuscular Volume 87, Mean Corpuscular Hemoglobin 27.0, Mean Corpuscular Hemoglobin Concent 31.1L, Red Cell Distribution Width 12.9, Platelet Count 194, Mean Platelet Volume 8.3, Neutrophils (%) (Auto) 47.0, Lymphocytes (%) (Auto) 33.3, Monocytes (%) (Auto) 15.6H, Eosinophils (%) (Auto) 3.0, Basophils (%) (Auto) 1.1, Sodium Level 138, Potassium Level 4.5, Chloride Level 107, Carbon Dioxide Level 22, Anion Gap 9, Blood Urea Nitrogen 31H, Creatinine 2.6H, Estimat Glomerular Filtration Rate 23.3, Glucose Level 159H, Calcium Level 9.0, Phosphorus Level 4.1, Magnesium Level 1.7L, Total Bilirubin 0.2, Aspartate Amino Transf (AST/SGOT) 14L, Alanine Aminotransferase (ALT/SGPT) 17, Alkaline Phosphatase 74, Total Protein 7.5, Albumin 2.6L, Globulin 4.9, Albumin/Globulin Ratio 0.5L Height (Feet): 5 Height (Inches): 4.00 Weight (Pounds): 248 General Appearance: no apparent distress Objective no change Wing Valadez MD Feb 02, 2018 11:02
--- NOTE | 2018-02-02 11:35 | General Surgery Progress Note ---
General Surgery-Progress Note Subjective Additional Comments no acute events. comfortable. states she wants PICC and Abx Objective Last 24 Hour Vital Signs Date Time Temp Pulse Resp B/P (MAP) Pulse Ox O2 Delivery O2 Flow Rate FiO2 02/02/18 09:00 Room Air 02/02/18 08:00 97.9 79 19 126/72 (90) 97 02/02/18 04:00 97.7 77 18 121/73 (89) 96 02/02/18 00:00 98.2 84 19 152/92 (112) 97 02/01/18 21:00 Room Air 02/01/18 20:22 77 20 Room Air 21 02/01/18 20:00 98.2 80 19 155/89 (111) 98 80 02/01/18 16:18 98.4 78 18 156/97 (116) 98 02/01/18 11:55 98.0 77 18 133/84 (100) 99 77 I&O Intake and Output 02/01/18 02/02/18 18:59 06:59 Intake Total 1895 ml 533.708 ml Balance 1895 ml 533.708 ml Intake Oral 1440 ml IV Total 455 ml 533.708 ml # Voids 6 2 # Bowel Movements 1 Dressing: saturated Wound: other - foul smelling wound noted on right plantal amputation Drains: none Cardiovascular: RSR Respiratory: clear Abdomen: soft, flat, non-tender, present bowel sounds Extremities: other Laboratory Tests Test 02/01/18 23:15 02/02/18 05:05 Vancomycin Level Trough 12.0 ug/mL (5.0-12.0) White Blood Count 5.2 K/UL (4.8-10.8) Red Blood Count 3.32 M/UL (4.20-5.40) L Hemoglobin 9.0 G/DL (12.0-16.0) L Hematocrit 28.8 % (37.0-47.0) L Mean Corpuscular Volume 87 FL (80-99) Mean Corpuscular Hemoglobin 27.0 PG (27.0-31.0) Mean Corpuscular Hemoglobin Concent 31.1 G/DL (32.0-36.0) L Red Cell Distribution Width 12.9 % (11.6-14.8) Platelet Count 194 K/UL (150-450) Mean Platelet Volume 8.3 FL (6.5-10.1) Neutrophils (%) (Auto) 47.0 % (45.0-75.0) Lymphocytes (%) (Auto) 33.3 % (20.0-45.0) Monocytes (%) (Auto) 15.6 % (1.0-10.0) H Eosinophils (%) (Auto) 3.0 % (0.0-3.0) Basophils (%) (Auto) 1.1 % (0.0-2.0) Sodium Level 138 MMOL/L (136-145) Potassium Level 4.5 MMOL/L (3.5-5.1) Chloride Level 107 MMOL/L (98-107) Carbon Dioxide Level 22 MMOL/L (21-32) Anion Gap 9 mmol/L (5-15) Blood Urea Nitrogen 31 mg/dL (7-18) H Creatinine 2.6 MG/DL (0.55-1.30) H Estimat Glomerular Filtration Rate 23.3 mL/min (>60) Glucose Level 159 MG/DL (74-106) H Calcium Level 9.0 MG/DL (8.5-10.1) Phosphorus Level 4.1 MG/DL (2.5-4.9) Magnesium Level 1.7 MG/DL (1.8-2.4) L Total Bilirubin 0.2 MG/DL (0.2-1.0) Aspartate Amino Transf (AST/SGOT) 14 U/L (15-37) L Alanine Aminotransferase (ALT/SGPT) 17 U/L (12-78) Alkaline Phosphatase 74 U/L (46-116) Total Protein 7.5 G/DL (6.4-8.2) Albumin 2.6 G/DL (3.4-5.0) L Globulin 4.9 g/dL Albumin/Globulin Ratio 0.5 (1.0-2.7) L Plan Problems: (1) Diabetic foot ulcer Assessment & Plan: Patient has history of large foot ulcers and prior infections/abscess requiring I&D. she has poorly controlled DM and in the past has had issues with distal feet. I have performed I&D on her in the past and extensive wound care to salvage extremity. She has been in rehab for some time now and being cared for there by wound team. 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 States was doing well and walking with prosthetic but developed large ulcer which is now foul smelling and draining. I have considered BKA in the past for her but will hold currently given medical condition. she presents to ED with elevated glucose levels and renal insufficiency. wound is a large distal midfoot ulcer with possible underlying infection MRI noted. now seems to have possible osteo and infection which would explain poor healing wound Signal abnormality of all 5 metatarsal stumps. Unless the amputation with very recent, (in which case signal abnormality could be reactive), findings are worrisome for osteomyelitis. Subtle signal abnormality of the lateral cuneiform, could indicate early osteomyelitis 5.1 x 2.1 x 1.3 cm fluid collection in the superficial posterior plantar fat. This is concerning for an abscess. 1.8 x 1.2 x 5.2 cm fluid collection medial to the anterior calcaneus within the deep subcutaneous fat, likewise concerning for abscess. There is a small collection which appears related to this but separate immediately anterior medically still not optimized. glucose not controlled. A1C >10 Reviewed MRI findings with patient. discussed clinical condition with her in detail. given MRI findings and clinical exam I agree with Podiatry and would benefit from BKA. I discussed this with patient and rational for why BKA would be beneficial. I explained to her the risks and benefits to surgery. In her given medical state she is at high risk for infection and wound failure/flap failure. She has DM uncontrolled with complications such as PVD and renal insufficiency. The changes of salvaging what she has now is low given above but the risk of morbidities from surgery there. I discussed alternatives to surgery with patient and recommended against them. There is no role for skin graft in her current condition and would not be recommended. if it were just a wound, could cont with would care for some time and see if improvement but unfortunately more than just a wound. she has underlying tissue abnormalities and potential osteo / abscess. If patient did not want surgery / BKA next option would be technician terminal and repeater Abx but not sure if this would cure infection for her. furthermore, could cause more injury to renal function. After discussing above in detail with patient, she stated that she does not want surgery now. she understands risk and wants abx and wound care. i explained that this is unlikey to resolve issues and she expressed that she understood but is not ready for surgery yet. -okay for diet -Abx -PICC with plans for 6 weeks abx as per ID -appreciate Podiatry input. thank you. will follow with recs. Sandro Ramirez Feb 02, 2018 11:35
[2018-02-02 12:00] VITALS: BP 122/71
--- NOTE | 2018-02-02 14:53 | Internal Med Progress Note ---
Subjective Physician Name Tobin Albert Attending Physician Tobin Albert MD Current Medications Medications (Trade) Dose Ordered Sig/Artemio Route PRN Reason Start Time Stop Time Status Last Admin Dose Admin Acetaminophen (Tylenol) 650 mg Q4H PRN ORAL fever 01/29/18 22:15 02/28/18 22:14 Albuterol/ Ipratropium (Albuterol/ Ipratropium) 3 ml Q4H PRN HHN Shortness of Breath 01/29/18 22:15 02/03/18 22:14 Cefepime HCl 1 gm/ Dextrose 55 ml @ 110 mls/hr DAILY IVPB 01/31/18 09:00 02/05/18 23:59 02/02/18 08:55 Chlorhexidine Gluconate (Nasreen-Hex 2%) 1 applic DAILY@2000 TOPIC 02/01/18 20:00 03/03/18 19:59 02/01/18 21:04 Dextrose (Dextrose 50%) 25 ml Q30M PRN IV Hypoglycemia 01/29/18 19:45 02/28/18 19:44 Dextrose (Dextrose 50%) 50 ml Q30M PRN IV Hypoglycemia 01/29/18 19:45 02/28/18 19:44 Diphenhydramine HCl (Benadryl) 25 mg Q6H PRN ORAL Itching/Pruritis 01/29/18 19:45 02/28/18 19:44 Docusate Sodium (Colace) 100 mg TID ORAL 01/30/18 18:00 02/28/18 20:59 02/02/18 08:56 Epoetin Carroll (Procrit (for non ESRD use)) 10,000 units MON-FRI-FRI SUBQ 02/02/18 21:00 03/04/18 20:59 Gadobutrol (Gadavist) 7.5 mmol NOW PRN IV Radiology Procedure 01/29/18 19:45 02/02/18 19:34 Heparin Sodium (Porcine) (Heparin 5000 units/ml) 5,000 units EVERY 12 HOURS SUBQ 01/29/18 22:45 02/28/18 22:44 02/02/18 08:57 Heparin Sodium/ Sodium Chloride (Heparin 2000 units/Ns 1000ml premix) 2,000 unit ONCE PRN INJ picc line placement 02/01/18 17:00 02/02/18 16:59 Insulin Aspart (NovoLOG) BEFORE MEALS AND HS SUBQ 01/30/18 06:30 03/01/18 06:29 02/02/18 11:24 Lidocaine HCl (Xylocaine 1% 30ml) 30 ml ONCE PRN INJ picc line placement 02/01/18 17:00 02/02/18 16:59 Metronidazole (Flagyl) 500 mg Q8HR ORAL 01/30/18 22:00 02/06/18 21:59 02/02/18 13:03 Mirtazapine (Remeron) 7.5 mg BEDTIME PRN ORAL insomnia 01/31/18 01:00 03/02/18 00:59 Morphine Sulfate (Morphine Sulfate) 1 mg Q3H PRN IVP Mild Pain (Pain Scale 1-3) 01/29/18 19:45 02/05/18 19:44 Morphine Sulfate (Morphine Sulfate) 2 mg Q4H PRN IVP Moderate Pain (Pain Scale 4-6) 01/29/18 22:15 02/05/18 22:14 Morphine Sulfate (Morphine Sulfate) 4 mg Q3H PRN IVP Severe Pain (Pain Scale 7-10) 01/29/18 19:45 02/05/18 19:44 Nitroglycerin (Ntg) 0.4 mg Q5M PRN SL Prn Chest Pain 01/29/18 22:15 02/28/18 22:14 Ondansetron HCl (Zofran) 4 mg Q6H PRN IVP Nausea & Vomiting 01/29/18 22:15 02/28/18 22:14 Pantoprazole (Protonix) 40 mg DAILY ORAL 01/30/18 13:30 03/01/18 13:29 02/02/18 08:55 Polyethylene Glycol (Miralax) 17 gm DAILYPRN PRN ORAL Constipation 01/29/18 22:15 02/28/18 22:14 Sodium Chloride 1,000 ml @ 50 mls/hr Q20H IV 01/30/18 13:30 03/01/18 13:29 02/02/18 01:09 Vancomycin HCl 1 gm/Dextrose 275 ml @ 183.708 mls/hr Q24H IVPB 02/02/18 01:00 02/07/18 00:59 02/02/18 02:43 Allergies: Coded Allergies: PENICILLINS (Verified Allergy, Severe, SWOLLEN BODY, 04/23/17) Per Daughter, patient has tolerated Amoxicillin Tolerated Ceftriaxone 04/22/17 Uncoded Allergies: Blood Transfusion (Adverse Reaction, Unknown, 06/29/17) Pt states that she develops lower extremity wounds after blood transfusions Subjective awake, alert, responsive, NAD, feeling okay. No CP or SOB Objective Last Vital Signs Date Time Temp Pulse Resp B/P (MAP) Pulse Ox O2 Delivery O2 Flow Rate FiO2 02/02/18 12:00 98.0 82 20 122/71 (88) 98 02/02/18 09:00 Room Air 02/01/18 20:22 21 Laboratory Tests Test 02/01/18 23:15 02/02/18 05:05 Vancomycin Level Trough 12.0 ug/mL (5.0-12.0) White Blood Count 5.2 K/UL (4.8-10.8) Red Blood Count 3.32 M/UL (4.20-5.40) L Hemoglobin 9.0 G/DL (12.0-16.0) L Hematocrit 28.8 % (37.0-47.0) L Mean Corpuscular Volume 87 FL (80-99) Mean Corpuscular Hemoglobin 27.0 PG (27.0-31.0) Mean Corpuscular Hemoglobin Concent 31.1 G/DL (32.0-36.0) L Red Cell Distribution Width 12.9 % (11.6-14.8) Platelet Count 194 K/UL (150-450) Mean Platelet Volume 8.3 FL (6.5-10.1) Neutrophils (%) (Auto) 47.0 % (45.0-75.0) Lymphocytes (%) (Auto) 33.3 % (20.0-45.0) Monocytes (%) (Auto) 15.6 % (1.0-10.0) H Eosinophils (%) (Auto) 3.0 % (0.0-3.0) Basophils (%) (Auto) 1.1 % (0.0-2.0) Sodium Level 138 MMOL/L (136-145) Potassium Level 4.5 MMOL/L (3.5-5.1) Chloride Level 107 MMOL/L (98-107) Carbon Dioxide Level 22 MMOL/L (21-32) Anion Gap 9 mmol/L (5-15) Blood Urea Nitrogen 31 mg/dL (7-18) H Creatinine 2.6 MG/DL (0.55-1.30) H Estimat Glomerular Filtration Rate 23.3 mL/min (>60) Glucose Level 159 MG/DL (74-106) H Calcium Level 9.0 MG/DL (8.5-10.1) Phosphorus Level 4.1 MG/DL (2.5-4.9) Magnesium Level 1.7 MG/DL (1.8-2.4) L Total Bilirubin 0.2 MG/DL (0.2-1.0) Aspartate Amino Transf (AST/SGOT) 14 U/L (15-37) L Alanine Aminotransferase (ALT/SGPT) 17 U/L (12-78) Alkaline Phosphatase 74 U/L (46-116) Total Protein 7.5 G/DL (6.4-8.2) Albumin 2.6 G/DL (3.4-5.0) L Globulin 4.9 g/dL Albumin/Globulin Ratio 0.5 (1.0-2.7) L Microbiology Date/Time Source Procedure Growth Status 01/30/18 21:40 Rectum VRE Culture - Final NO VANCOMYCIN RESISTANT ENTEROCOCCUS ... Complete Intake and Output 02/01/18 02/02/18 18:59 06:59 Intake Total 1895 ml 533.708 ml Balance 1895 ml 533.708 ml Intake Oral 1440 ml IV Total 455 ml 533.708 ml # Voids 6 2 # Bowel Movements 1 Objective GENERAL: The patient is awake, responsive, in no acute distress. HEAD AND NECK: Pupils are equal and reactive to light. Extraocular movements are intact. Neck was supple. No JVD. LUNGS: Good air entry. No wheezing or rales. HEART: S1 and S2. Distant heart sounds. No murmurs or gallops. ABDOMEN: Soft, nondistended, and nontender. Morbidly obese. EXTREMITIES: No cyanosis, clubbing, or edema. Right lower extremity has a transmetatarsal amputation with dressing. RECTAL/GENITOURINARY: Refused and deferred. PSYCHIATRIC: Mood and affect is intact. Assessment/Plan Assessment/Plan 1. Right foot transmetatarsal infected with underlying abscess as well as osteomyelitis. 2. Severe peripheral vascular disease. 3. Chronic kidney disease. 4. Diabetes type 2, uncontrolled. 5. Diabetic nephropathy. 6. Chronic foot ulcer. 7. History of bacteremia. 8. Hypertension. 9. Prior history of sepsis. 10.anemia of CKD. PLAN: 1. In medical/surgical. 2. We will follow up with Dr. Ramirez, Patient refused BKA, 3. We will monitor laboratory and cultures. 4. Broad-spectrum antibiotic: vancomycin, Flagyl, and cefepime. 5. Code status is Full Code. 6. Accu-Chek with sliding scale. 7. Heparin 5000 q.8 hours. 8. We will follow up with Dr. Valadez from Nephrology and Dr. Schwarz Podiatry consultation. 9. Piccline placement for [facility] abx therapy, 10. DC planning to SNF. Tobin Albert M.D. Tobin Albert MD Feb 02, 2018 14:53
[2018-02-02 16:00] VITALS: BP 147/86
--- NOTE | 2018-02-02 18:27 | General Progress Note ---
Assessment/Plan Problem List: (1) Anxiety disorder ICD Codes: F41.9 - Anxiety disorder, unspecified SNOMED: 812483727 Status: stable Assessment/Plan remron 7.5 mg qhs prn provided Subjective Neurologic/Psychiatric: Reports: anxiety Allergies: Coded Allergies: PENICILLINS (Verified Allergy, Severe, SWOLLEN BODY, 04/23/17) Per Daughter, patient has tolerated Amoxicillin Tolerated Ceftriaxone 04/22/17 Uncoded Allergies: Blood Transfusion (Adverse Reaction, Unknown, 06/29/17) Pt states that she develops lower extremity wounds after blood transfusions Objective Last 24 Hour Vital Signs Date Time Temp Pulse Resp B/P (MAP) Pulse Ox O2 Delivery O2 Flow Rate FiO2 02/02/18 16:00 98.7 82 18 147/86 (106) 98 02/02/18 12:00 98.0 82 20 122/71 (88) 98 02/02/18 09:00 Room Air 02/02/18 08:00 97.9 79 19 126/72 (90) 97 02/02/18 04:00 97.7 77 18 121/73 (89) 96 02/02/18 00:00 98.2 84 19 152/92 (112) 97 02/01/18 21:00 Room Air 02/01/18 20:22 77 20 Room Air 21 02/01/18 20:00 98.2 80 19 155/89 (111) 98 80 Intake and Output 02/01/18 02/02/18 19:00 07:00 Intake Total 1895 ml 533.708 ml Balance 1895 ml 533.708 ml Intake Oral 1440 ml IV Total 455 ml 533.708 ml # Voids 6 2 # Bowel Movements 1 Laboratory Tests 02/01/18 23:15: Vancomycin Level Trough 12.0 02/02/18 05:05: White Blood Count 5.2, Red Blood Count 3.32L, Hemoglobin 9.0L, Hematocrit 28.8L , Mean Corpuscular Volume 87, Mean Corpuscular Hemoglobin 27.0, Mean Corpuscular Hemoglobin Concent 31.1L, Red Cell Distribution Width 12.9, Platelet Count 194, Mean Platelet Volume 8.3, Neutrophils (%) (Auto) 47.0, Lymphocytes (%) (Auto) 33.3, Monocytes (%) (Auto) 15.6H, Eosinophils (%) (Auto) 3.0, Basophils (%) (Auto) 1.1, Sodium Level 138, Potassium Level 4.5, Chloride Level 107, Carbon Dioxide Level 22, Anion Gap 9, Blood Urea Nitrogen 31H, Creatinine 2.6H, Estimat Glomerular Filtration Rate 23.3, Glucose Level 159H, Calcium Level 9.0, Phosphorus Level 4.1, Magnesium Level 1.7L, Total Bilirubin 0.2, Aspartate Amino Transf (AST/SGOT) 14L, Alanine Aminotransferase (ALT/SGPT) 17, Alkaline Phosphatase 74, Total Protein 7.5, Albumin 2.6L, Globulin 4.9, Albumin/Globulin Ratio 0.5L Height (Feet): 5 Height (Inches): 4.00 Weight (Pounds): 248 General Appearance: alert, obese Neurologic: oriented x 3, responsive, depressed affect Remington Kimbrough MD Feb 02, 2018 18:27
[2018-02-02 20:00] VITALS: BP 140/83
[2018-02-02] MEDS: Dyna-Hex 2% Top Sol 2oz TOPIC SCH (20:00)
[2018-02-02] MEDS: Epogen (for non ESRD use) SUBQ SCH (21:29)
[2018-02-03] VITALS: BP 145/83
[2018-02-03] MEDS: Vancomycin 1gm in D5W 275ml IVPB SCH (01:48)
[2018-02-03 04:00] VITALS: BP 141/69
[2018-02-03] MEDS: metroNIDAZOLE 500mg tab ORAL SCH ×3 (05:14→21:14)
[2018-02-03] MEDS: NovoLOG Insulin Flexpen SUBQ SCH ×4 (06:08→21:16)
[2018-02-03 08:00] VITALS: BP 126/75
[2018-02-03] MEDS: Cefepime 1gm in D5W 55ml IVPB SCH (08:45)
[2018-02-03] MEDS: Docusate 100mg cap ORAL SCH ×4 (08:45→17:23)
[2018-02-03] MEDS: Heparin 5000 units/ml inj SUBQ SCH ×3 (08:46→21:14)
[2018-02-03 11:49] VITALS: BP 146/95
--- NOTE | 2018-02-03 12:17 | Cardiology Report ---
APPROVED REPORT EXAM: Two-dimensional and M-mode echocardiogram with Doppler and color Doppler. INDICATION Congestive Heart Failure M-Mode DIMENSIONS IVSd1.2 (0.7-1.1cm)Left Atrium (MM)3.3 (1.6-4.0cm) LVDd4.7 (3.5-5.6cm)Aortic Root3.4 (2.0-3.7cm) PWd1.3 (0.7-1.1cm)Aortic Cusp Exc.2.0 (1.5-2.0cm) LVDs2.2 (2.5-4.0cm) PWs2.2 cm Normal left ventricular chamber size, systolic function and wall motion. Left ventricular ejection fraction estimated to be 60 %. Mild left ventricular hypertrophy. No evidence of pericardial effusion. All other cardiac chamber sizes are within normal limits. Normal appearing aortic, mitral, pulmonic and tricuspid valves. Mild mitral annulus and aortic root calcification. IVC is normal in size with physiological collapse. A color flow and spectral Doppler study was performed and revealed: No aortic insufficiency. No mitral regurgitation. Mitral diastolic velocities suggest mild left ventricular diastolic dysfunction (Grade I). Trace tricuspid regurgitation. No pulmonic regurgitation present.
--- NOTE | 2018-02-03 12:54 | Nephrology Progress Note ---
Assessment/Plan Problem List: (1) Diabetic nephropathy (2) Anemia in chronic kidney disease (3) CKD (chronic kidney disease) Assessment: Cr up 2.6 (4) Diabetic foot ulcer (5) Peripheral vascular disease Assessment Renal failure- Likely Diabetic nephropathy HTN PVD Diabetic foot ulcers / Osteo Anemia of CKD Multiple allergies Ua 3+ proteinuria Avoid nephrotoxics GARRISON kidney 2D echo Anemia li Monitor renal parameters Per orders Plan no labs today- add Norvasc Avoid nephrotoxics GARRISON kidney Essentially unremarkable exam. Negative for hydronephrosis 2D echo Left ventricular ejection fraction estimated to be 60 %. Anemia li: start EPO and IV iron Monitor renal parameters Per orders Subjective ROS Limited/Unobtainable: No Constitutional: Reports: malaise Objective Objective Last 24 Hour Vital Signs Date Time Temp Pulse Resp B/P (MAP) Pulse Ox O2 Delivery O2 Flow Rate FiO2 02/03/18 11:49 98.1 77 19 146/95 (112) 95 77 02/03/18 09:00 Room Air 02/03/18 08:00 97.9 83 20 126/75 (92) 95 02/03/18 07:55 79 16 Room Air 21 02/03/18 04:00 98.6 86 19 141/69 (93) 95 02/03/18 00:00 97.5 80 19 145/83 (103) 99 02/02/18 21:00 Room Air 02/02/18 20:22 80 18 Room Air 21 02/02/18 20:00 98.4 81 19 140/83 (102) 98 02/02/18 16:00 98.7 82 18 147/86 (106) 98 Intake and Output 02/02/18 02/03/18 19:00 07:00 Intake Total 1343.708 ml 825.000 ml Balance 1343.708 ml 825.000 ml Intake Oral 1000 ml 250 ml IV Total 343.708 ml 575.000 ml # Voids 5 8 # Bowel Movements 1 Height (Feet): 5 Height (Inches): 4.00 Weight (Pounds): 248 General Appearance: no apparent distress Objective no change Wing Valadez MD Feb 03, 2018 12:54
--- NOTE | 2018-02-03 13:13 | Internal Med Progress Note ---
Subjective Physician Name Tobin Albert Attending Physician Tobin Albert MD Current Medications Medications (Trade) Dose Ordered Sig/Artemio Route PRN Reason Start Time Stop Time Status Last Admin Dose Admin Acetaminophen (Tylenol) 650 mg Q4H PRN ORAL fever 01/29/18 22:15 02/28/18 22:14 Albuterol/ Ipratropium (Albuterol/ Ipratropium) 3 ml Q4H PRN HHN Shortness of Breath 01/29/18 22:15 02/03/18 22:14 Amlodipine Besylate (Norvasc) 5 mg DAILY ORAL 02/04/18 09:00 03/06/18 08:59 Amlodipine Besylate (Norvasc) 5 mg ONCE ORAL 02/03/18 13:00 02/03/18 14:00 Cefepime HCl 1 gm/ Dextrose 55 ml @ 110 mls/hr DAILY IVPB 01/31/18 09:00 02/05/18 23:59 02/03/18 08:45 Chlorhexidine Gluconate (Nasreen-Hex 2%) 1 applic DAILY@2000 TOPIC 02/01/18 20:00 03/03/18 19:59 02/01/18 21:04 Dextrose (Dextrose 50%) 25 ml Q30M PRN IV Hypoglycemia 01/29/18 19:45 02/28/18 19:44 Dextrose (Dextrose 50%) 50 ml Q30M PRN IV Hypoglycemia 01/29/18 19:45 02/28/18 19:44 Diphenhydramine HCl (Benadryl) 25 mg Q6H PRN ORAL Itching/Pruritis 01/29/18 19:45 02/28/18 19:44 Docusate Sodium (Colace) 100 mg TID ORAL 01/30/18 18:00 02/28/18 20:59 02/02/18 08:56 Epoetin Carroll (Procrit (for non ESRD use)) 10,000 units MON-WED-FRI SUBQ 02/02/18 21:00 03/04/18 20:59 02/02/18 21:29 Heparin Sodium (Porcine) (Heparin 5000 units/ml) 5,000 units EVERY 12 HOURS SUBQ 01/29/18 22:45 02/28/18 22:44 02/02/18 21:29 Insulin Aspart (NovoLOG) BEFORE MEALS AND HS SUBQ 01/30/18 06:30 03/01/18 06:29 02/03/18 12:16 Metronidazole (Flagyl) 500 mg Q8HR ORAL 01/30/18 22:00 02/06/18 21:59 02/03/18 05:14 Mirtazapine (Remeron) 7.5 mg BEDTIME PRN ORAL insomnia 01/31/18 01:00 03/02/18 00:59 Morphine Sulfate (Morphine Sulfate) 1 mg Q3H PRN IVP Mild Pain (Pain Scale 1-3) 01/29/18 19:45 02/05/18 19:44 Morphine Sulfate (Morphine Sulfate) 2 mg Q4H PRN IVP Moderate Pain (Pain Scale 4-6) 01/29/18 22:15 02/05/18 22:14 Morphine Sulfate (Morphine Sulfate) 4 mg Q3H PRN IVP Severe Pain (Pain Scale 7-10) 01/29/18 19:45 02/05/18 19:44 Nitroglycerin (Ntg) 0.4 mg Q5M PRN SL Prn Chest Pain 01/29/18 22:15 02/28/18 22:14 Ondansetron HCl (Zofran) 4 mg Q6H PRN IVP Nausea & Vomiting 01/29/18 22:15 02/28/18 22:14 Pantoprazole (Protonix) 40 mg DAILY ORAL 01/30/18 13:30 03/01/18 13:29 02/03/18 08:45 Polyethylene Glycol (Miralax) 17 gm DAILYPRN PRN ORAL Constipation 01/29/18 22:15 02/28/18 22:14 Sodium Chloride 1,000 ml @ 50 mls/hr Q20H IV 01/30/18 13:30 03/01/18 13:29 02/02/18 21:29 Vancomycin HCl (Vanco rx to dose) 1 ea DAILY PRN MISC . 02/03/18 12:00 03/05/18 11:59 Vancomycin HCl 1 gm/Dextrose 275 ml @ 183.708 mls/hr Q24H IVPB 02/02/18 01:00 02/07/18 00:59 02/03/18 01:48 Allergies: Coded Allergies: PENICILLINS (Verified Allergy, Severe, SWOLLEN BODY, 04/23/17) Per Daughter, patient has tolerated Amoxicillin Tolerated Ceftriaxone 04/22/17 Uncoded Allergies: Blood Transfusion (Adverse Reaction, Unknown, 06/29/17) Pt states that she develops lower extremity wounds after blood transfusions Subjective awake, alert, responsive, NAD, feeling okay. No CP or SOB, waiting for Piccline placement prior discharge to SNF. Objective Last Vital Signs Date Time Temp Pulse Resp B/P (MAP) Pulse Ox O2 Delivery O2 Flow Rate FiO2 02/03/18 11:49 98.1 77 19 146/95 (112) 95 77 02/03/18 09:00 Room Air 02/03/18 07:55 21 Intake and Output 02/02/18 02/03/18 18:59 06:59 Intake Total 1343.708 ml 825.000 ml Balance 1343.708 ml 825.000 ml Intake Oral 1000 ml 250 ml IV Total 343.708 ml 575.000 ml # Voids 5 8 # Bowel Movements 1 Objective GENERAL: The patient is awake, responsive, in no acute distress. HEAD AND NECK: Pupils are equal and reactive to light. Extraocular movements are intact. Neck was supple. No JVD. LUNGS: Good air entry. No wheezing or rales. HEART: S1 and S2. Distant heart sounds. No murmurs or gallops. ABDOMEN: Soft, nondistended, and nontender. Morbidly obese. EXTREMITIES: No cyanosis, clubbing, or edema. Right lower extremity has a transmetatarsal amputation with dressing. RECTAL/GENITOURINARY: Refused and deferred. PSYCHIATRIC: Mood and affect is intact. Assessment/Plan Assessment/Plan 1. Right foot transmetatarsal infected with underlying abscess as well as osteomyelitis. 2. Severe peripheral vascular disease. 3. Chronic kidney disease. 4. Diabetes type 2, uncontrolled. 5. Diabetic nephropathy. 6. Chronic foot ulcer. 7. History of bacteremia. 8. Hypertension. 9. Prior history of sepsis. 10.anemia of CKD. PLAN: 1. In medical/surgical. 2. We will follow up with Dr. Ramirez, Patient refused BKA, 3. We will monitor laboratory and cultures. 4. Broad-spectrum antibiotic: vancomycin, Flagyl, and cefepime. 5. Code status is Full Code. 6. Accu-Chek with sliding scale. 7. Heparin 5000 q.8 hours. 8. We will follow up with Dr. Valadez from Nephrology and Dr. Schwarz Podiatry consultation. 9. Piccline placement for usp abx therapy, 10. DC planning to SNF. [place] Constantino Payam MD Feb 03, 2018 13:13
[2018-02-03 16:00] VITALS: BP 137/80
[2018-02-03] MEDS ORDERED: Lidocaine 1% Plain 30 ml INJ PRN (16:30)
[2018-02-03] MEDS ORDERED: Heparin 2000 units/Ns 1000ml INJ PRN (16:30)
--- NOTE | 2018-02-03 16:30 | General Surgery Progress Note ---
General Surgery-Progress Note Subjective Additional Comments no acute events. doing well. 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 despite risks Objective Last 24 Hour Vital Signs Date Time Temp Pulse Resp B/P (MAP) Pulse Ox O2 Delivery O2 Flow Rate FiO2 02/03/18 13:33 86 154/93 02/03/18 11:49 98.1 77 19 146/95 (112) 95 77 02/03/18 09:00 Room Air 02/03/18 08:00 97.9 83 20 126/75 (92) 95 02/03/18 07:55 79 16 Room Air 21 02/03/18 04:00 98.6 86 19 141/69 (93) 95 02/03/18 00:00 97.5 80 19 145/83 (103) 99 02/02/18 21:00 Room Air 02/02/18 20:22 80 18 Room Air 21 02/02/18 20:00 98.4 81 19 140/83 (102) 98 I&O Intake and Output 02/02/18 02/03/18 18:59 06:59 Intake Total 1343.708 ml 825.000 ml Balance 1343.708 ml 825.000 ml Intake Oral 1000 ml 250 ml IV Total 343.708 ml 575.000 ml # Voids 5 8 # Bowel Movements 1 Dressing: saturated Wound: other Drains: none Cardiovascular: RSR Respiratory: clear Abdomen: soft, non-tender, present bowel sounds Extremities: other Plan Problems: (1) Diabetic foot ulcer Assessment & Plan: Patient has history of large foot ulcers and prior infections/abscess requiring I&D. she has poorly controlled DM and in the past has had issues with distal feet. I have performed I&D on her in the past and extensive wound care to salvage extremity. She has been in rehab for some time now and being cared for there by wound team. 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 States was doing well and walking with prosthetic but developed large ulcer which is now foul smelling and draining. I have considered BKA in the past for her but will hold currently given medical condition. she presents to ED with elevated glucose levels and renal insufficiency. wound is a large distal midfoot ulcer with possible underlying infection MRI noted. now seems to have possible osteo and infection which would explain poor healing wound Signal abnormality of all 5 metatarsal stumps. Unless the amputation with very recent, (in which case signal abnormality could be reactive), findings are worrisome for osteomyelitis. Subtle signal abnormality of the lateral cuneiform, could indicate early osteomyelitis 5.1 x 2.1 x 1.3 cm fluid collection in the superficial posterior plantar fat. This is concerning for an abscess. 1.8 x 1.2 x 5.2 cm fluid collection medial to the anterior calcaneus within the deep subcutaneous fat, likewise concerning for abscess. There is a small collection which appears related to this but separate immediately anterior medically still not optimized. glucose not controlled. A1C >10 Reviewed MRI findings with patient. discussed clinical condition with her in detail. given MRI findings and clinical exam I agree with Podiatry and would benefit from BKA. I discussed this with patient and rational for why BKA would be beneficial. I explained to her the risks and benefits to surgery. In her given medical state she is at high risk for infection and wound failure/flap failure. She has DM uncontrolled with complications such as PVD and renal insufficiency. The changes of salvaging what she has now is low given above but the risk of morbidities from surgery there. I discussed alternatives to surgery with patient and recommended against them. There is no role for skin graft in her current condition and would not be recommended. if it were just a wound, could cont with would care for some time and see if improvement but unfortunately more than just a wound. she has underlying tissue abnormalities and potential osteo / abscess. If patient did not want surgery / BKA next option would be skilled nursing Abx but not sure if this would cure infection for her. furthermore, could cause more injury to renal function. After discussing above in detail with patient, she stated that she does not want surgery now. she understands risk and wants abx and wound care. i explained that this is unlikey to resolve issues and she expressed that she understood but is not ready for surgery yet. -okay for diet -Abx -PICC with plans for 6 weeks abx as per ID -appreciate Podiatry input. thank you. will follow with recs. Sandro Ramirez Feb 03, 2018 16:30
[2018-02-03 20:00] VITALS: BP 127/82
[2018-02-03] MEDS ORDERED: Dyna-Hex 2% Top Sol 2oz TOPIC SCH (20:00)
[2018-02-04] VITALS: BP 141/66
[2018-02-04] MEDS: Vancomycin 1gm in D5W 275ml IVPB SCH (01:17)
[2018-02-04 04:00] VITALS: BP 141/69
[2018-02-04] MEDS: metroNIDAZOLE 500mg tab ORAL SCH ×3 (05:42→21:14)
[2018-02-04] MEDS: NovoLOG Insulin Flexpen SUBQ SCH ×4 (06:05→21:15)
[2018-02-04 06:44] LABS: BASOPHILS % (AUTO) 1.6 % (0.0-2.0); HEMATOCRIT 30.5 % (37.0-47.0); HEMOGLOBIN 9.5 G/DL (12.0-16.0); LYMPHOCYTES % (AUTO) 33.7 % (20.0-45.0); MEAN CORPUSCULAR VOLUME 87 FL (80-99); NEUTROPHILS % (AUTO) 49.7 % (45.0-75.0); PLATELET COUNT 208 K/UL (150-450); RED BLOOD COUNT 3.49 M/UL (4.20-5.40); RED CELL DISTRIBUTION WIDTH 13.3 % (11.6-14.8); WHITE BLOOD COUNT 6.3 K/UL (4.8-10.8)
[2018-02-04 07:05] LABS: ALANINE AMINOTRANSFERASE 46 U/L (12-78); ALBUMIN 2.7 G/DL (3.4-5.0); ALBUMIN/GLOBULIN RATIO 0.6 (1.0-2.7); ALKALINE PHOSPHATASE 83 U/L (46-116); ANION GAP 11 mmol/L (5-15); ASPARTATE AMINO TRANSFERASE 47 U/L (15-37); BILIRUBIN,TOTAL 0.3 MG/DL (0.2-1.0); BLOOD UREA NITROGEN 34 mg/dL (7-18); CALCIUM 8.9 MG/DL (8.5-10.1); CARBON DIOXIDE 22 MMOL/L (21-32); CHLORIDE 106 MMOL/L (98-107); CREATININE 2.7 MG/DL (0.55-1.30); POTASSIUM 4.6 MMOL/L (3.5-5.1); SODIUM 138 MMOL/L (136-145)
[2018-02-04 08:00] VITALS: BP 126/80
[2018-02-04] MEDS ORDERED: Heparin 2000 units/Ns 1000ml INJ PRN (08:15)
[2018-02-04] MEDS ORDERED: Lidocaine 1% Plain 30 ml INJ PRN (08:15)
[2018-02-04] MEDS: Docusate 100mg cap ORAL SCH ×3 (08:44→17:45)
[2018-02-04] MEDS: Cefepime 1gm in D5W 55ml IVPB SCH (08:45)
[2018-02-04] MEDS: Heparin 5000 units/ml inj SUBQ SCH ×2 (08:45→21:16)
--- NOTE | 2018-02-04 10:17 | General Surgery Progress Note ---
General Surgery-Progress Note Subjective Symptoms: improved, tolerating diet, passing flatus Additional Comments no acute events. comfortable. awaiting picc today Objective Last 24 Hour Vital Signs Date Time Temp Pulse Resp B/P (MAP) Pulse Ox O2 Delivery O2 Flow Rate FiO2 02/04/18 08:44 80 126/80 02/04/18 08:00 97.8 80 18 126/80 (95) 98 02/04/18 04:00 97.2 78 19 141/69 (93) 96 02/04/18 00:00 97.8 80 19 141/66 (91) 99 02/03/18 21:00 Room Air 02/03/18 20:00 97.2 80 19 127/82 (97) 98 02/03/18 19:51 74 16 Room Air 21 02/03/18 16:00 98.2 81 19 137/80 (99) 95 02/03/18 13:33 86 154/93 02/03/18 11:49 98.1 77 19 146/95 (112) 95 77 I&O Intake and Output 02/03/18 02/04/18 19:00 07:00 Intake Total 1805 ml 1075.000 ml Balance 1805 ml 1075.000 ml Intake Oral 1200 ml 250 ml IV Total 605 ml 825.000 ml # Voids 4 9 # Bowel Movements 2 Dressing: saturated Wound: other Drains: other Cardiovascular: RSR Respiratory: clear Abdomen: soft, flat, non-tender, present bowel sounds Extremities: other Laboratory Tests Test 02/04/18 05:40 White Blood Count 6.3 K/UL (4.8-10.8) Red Blood Count 3.49 M/UL (4.20-5.40) L Hemoglobin 9.5 G/DL (12.0-16.0) L Hematocrit 30.5 % (37.0-47.0) L Mean Corpuscular Volume 87 FL (80-99) Mean Corpuscular Hemoglobin 27.1 PG (27.0-31.0) Mean Corpuscular Hemoglobin Concent 31.0 G/DL (32.0-36.0) L Red Cell Distribution Width 13.3 % (11.6-14.8) Platelet Count 208 K/UL (150-450) Mean Platelet Volume 7.7 FL (6.5-10.1) Neutrophils (%) (Auto) 49.7 % (45.0-75.0) Lymphocytes (%) (Auto) 33.7 % (20.0-45.0) Monocytes (%) (Auto) 13.0 % (1.0-10.0) H Eosinophils (%) (Auto) 2.0 % (0.0-3.0) Basophils (%) (Auto) 1.6 % (0.0-2.0) Sodium Level 138 MMOL/L (136-145) Potassium Level 4.6 MMOL/L (3.5-5.1) Chloride Level 106 MMOL/L (98-107) Carbon Dioxide Level 22 MMOL/L (21-32) Anion Gap 11 mmol/L (5-15) Blood Urea Nitrogen 34 mg/dL (7-18) H Creatinine 2.7 MG/DL (0.55-1.30) H Estimat Glomerular Filtration Rate 22.2 mL/min (>60) Glucose Level 177 MG/DL (74-106) H Calcium Level 8.9 MG/DL (8.5-10.1) Phosphorus Level 4.0 MG/DL (2.5-4.9) Magnesium Level 1.6 MG/DL (1.8-2.4) L Total Bilirubin 0.3 MG/DL (0.2-1.0) Aspartate Amino Transf (AST/SGOT) 47 U/L (15-37) H Alanine Aminotransferase (ALT/SGPT) 46 U/L (12-78) Alkaline Phosphatase 83 U/L (46-116) C-Reactive Protein, Quantitative 1.2 mg/dL (0.00-0.90) H Total Protein 7.1 G/DL (6.4-8.2) Albumin 2.7 G/DL (3.4-5.0) L Globulin 4.4 g/dL Albumin/Globulin Ratio 0.6 (1.0-2.7) L Plan Problems: (1) Diabetic foot ulcer Assessment & Plan: Patient has history of large foot ulcers and prior infections/abscess requiring I&D. she has poorly controlled DM and in the past has had issues with distal feet. I have performed I&D on her in the past and extensive wound care to salvage extremity. She has been in rehab for some time now and being cared for there by wound team. 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 States was doing well and walking with prosthetic but developed large ulcer which is now foul smelling and draining. I have considered BKA in the past for her but will hold currently given medical condition. she presents to ED with elevated glucose levels and renal insufficiency. wound is a large distal midfoot ulcer with possible underlying infection MRI noted. now seems to have possible osteo and infection which would explain poor healing wound Signal abnormality of all 5 metatarsal stumps. Unless the amputation with very recent, (in which case signal abnormality could be reactive), findings are worrisome for osteomyelitis. Subtle signal abnormality of the lateral cuneiform, could indicate early osteomyelitis 5.1 x 2.1 x 1.3 cm fluid collection in the superficial posterior plantar fat. This is concerning for an abscess. 1.8 x 1.2 x 5.2 cm fluid collection medial to the anterior calcaneus within the deep subcutaneous fat, likewise concerning for abscess. There is a small collection which appears related to this but separate immediately anterior medically still not optimized. glucose not controlled. A1C >10 Reviewed MRI findings with patient. discussed clinical condition with her in detail. given MRI findings and clinical exam I agree with Podiatry and would benefit from BKA. I discussed this with patient and rational for why BKA would be beneficial. I explained to her the risks and benefits to surgery. In her given medical state she is at high risk for infection and wound failure/flap failure. She has DM uncontrolled with complications such as PVD and renal insufficiency. The changes of salvaging what she has now is low given above but the risk of morbidities from surgery there. I discussed alternatives to surgery with patient and recommended against them. There is no role for skin graft in her current condition and would not be recommended. if it were just a wound, could cont with would care for some time and see if improvement but unfortunately more than just a wound. she has underlying tissue abnormalities and potential osteo / abscess. If patient did not want surgery / BKA next option would be residential Abx but not sure if this would cure infection for her. furthermore, could cause more injury to renal function. After discussing above in detail with patient, she stated that she does not want surgery now. she understands risk and wants abx and wound care. i explained that this is unlikey to resolve issues and she expressed that she understood but is not ready for surgery yet. -okay for diet -Abx -PICC with plans for 6 weeks abx as per ID -appreciate Podiatry input. thank you. will follow with recs. Sandro Ramirez Feb 04, 2018 10:17
--- NOTE | 2018-02-04 10:20 | Pre-Procedure Note/Attestation ---
Pre-Procedure Note/Attestation Complete Prior to Procedure Planned Procedure: not applicable Procedure Narrative: PICC line Indications for Procedure Pre-Operative Diagnosis: need llong term IV antibiotics Attestation I attest that I discussed the nature of the procedure; its benefits; risks and complications; and alternatives (and the risks and benefits of such alternatives ), prior to the procedure, with the patient (or the patient's legal access representative). I attest that I re-evaluated the patient just prior to the surgery and that there has been no change in the patient's H&P, except as documented below: Jozef Olson M.D. Feb 04, 2018 10:20
--- NOTE | 2018-02-04 11:07 | Diagnostic Imaging Report ---
Indications: Needs long-term IV access Technique: Ultrasound confirms patent compressible right basilic vein. Total sterile technique, including sterile probe cover and sterile gel, hat, mask,, sterile gown, large sterile drape, and preparation with 2% chlorhexidine utilized. Local anesthesia with 1% lidocaine. Under real-time ultrasound guidance, puncture right basilic vein using 21-gauge needle, documented and archived, passage 0.018 guidewire under direct fluoroscopy, which was used to determine appropriate catheter length, exchange for 5 Barbadian peel-away sheath. 5 Barbadian dual-lumen power PICC cut to 37 cm. It was inserted through the peel-away sheath. Peel-away sheath and guidewire removed. Catheter fixed to the skin. Both catheter ports aspirated and flushed. Patient tolerated procedure well, without immediate complication. Digital radiograph documents satisfactory catheter tip position, at the cavoatrial junction. Total fluoroscopy time 31.2 minutes. Total fluoroscopy dose 4.42 mGy. Impression: Successful placement of 5 Barbadian double-lumen PICC under sonographic and fluoroscopic guidance, as described above.
--- NOTE | 2018-02-04 11:18 | Infectious Diseases Prog Note ---
Assessment/Plan Assessment/Plan Abx: Cefepime 01/29- IV Vancomycin 01/30- Assessment: R foot stump worsening ulcer w/ suspicion for OM and abscess -wound cx: S. aureus, Group G step, P mirabilis (R Cipro/levo, bactrim; S Ceftriaxone, Cefepime) -MRI R foot: Postsurgical changes of the right foot, as described Signal abnormality of all 5 metatarsal stumps. Unless the amputation with very recent, (in which case signal abnormality could be reactive), findings are worrisome for osteomyelitis. Subtle signal abnormality of the lateral cuneiform, could indicate early osteomyelitis. 5.1 x 2.1 x 1.3 cm fluid collection in the superficial posterior plantar fat. This is concerning for an abscess. 1.8 x 1.2 x 5.2 cm fluid collection medial to the anterior calcaneus within the deep subcutaneous fat, likewise concerning for abscess. 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 Evidence of progressively worsening signal alteration presumably osteomyelitis involving bilateral malleolus regions, distal tibia plafond, talus and possibly the upper part of the calcaneus. -wound cx Neg -hx of Large abscess and polymicrobial bacteremia and fungemia 04/2017, s/p Rx -- wound cx from purulent discharge 04/22 #1: +2 MRSA, <1+ E. aerogens (S Ceftriaxone), +4 GBS; #2 +2 MRSA (S tetracycline, bactrim, vanco), +4 E. aerogens (S Ceftriaxone), E fecalis (grissom S) --Bcx 04/21 24 + GBS, 2/4 CoNS, 02/13MRSA, Bcx 04/22 1 C. glabrata; Bcx NTD; Bcx 04/27 2/4 S. epi (from same bottle) ; 04/28 BCx Neg Dm2 HTN hx of R transmetatarsal amputation GERD CKD st 4 MDD anxiety reported PNC allergy- however tolerates Amoxicillin per daughter and tolerated Ceftriaxone 04/2017 hx of VRE colonization Plan: -Continue empiric IV Vancomycin #, Cefepime # and Flagyl #07/24 for OM and abscess -patient refused surgery at this point, will treat for 42 days. -if febrile, obtain 2 sets of Bcx -f/u cx -Monitor CBC/CMP, temperatures -Sx and podiatry f/u- recommends right BKA -send deep tissue and bone cultures at the time of surgical intervention -wound care -PICC line Thank you for this consultation. Will continue to follow along with you. Discussed with RN. Subjective Allergies: Coded Allergies: PENICILLINS (Verified Allergy, Severe, SWOLLEN BODY, 04/23/17) Per Daughter, patient has tolerated Amoxicillin Tolerated Ceftriaxone 04/22/17 Uncoded Allergies: Blood Transfusion (Adverse Reaction, Unknown, 06/29/17) Pt states that she develops lower extremity wounds after blood transfusions Subjective afebrile no leukocytosis Objective Vital Signs Last 24 Hour Vital Signs Date Time Temp Pulse Resp B/P (MAP) Pulse Ox O2 Delivery O2 Flow Rate FiO2 02/04/18 08:44 80 126/80 02/04/18 08:00 97.8 80 18 126/80 (95) 98 02/04/18 04:00 97.2 78 19 141/69 (93) 96 02/04/18 00:00 97.8 80 19 141/66 (91) 99 02/03/18 21:00 Room Air 02/03/18 20:00 97.2 80 19 127/82 (97) 98 02/03/18 19:51 74 16 Room Air 21 02/03/18 16:00 98.2 81 19 137/80 (99) 95 02/03/18 13:33 86 154/93 02/03/18 11:49 98.1 77 19 146/95 (112) 95 77 Height (Feet): 5 Height (Inches): 4.00 Weight (Pounds): 247 Objective GENERAL: The patient is awake, responsive, in no acute distress. HEAD AND NECK: Pupils are equal and reactive to light. Extraocular movements are intact. Neck was supple. No JVD. LUNGS: Good air entry. No wheezing or rales. HEART: S1 and S2. Distant heart sounds. No murmurs or gallops. ABDOMEN: Soft, nondistended, and nontender. Morbidly obese. EXTREMITIES: No cyanosis, clubbing, or edema. Right lower extremity has a transmetatarsal amputation with dressing. RECTAL/GENITOURINARY: Refused and deferred. PSYCHIATRIC: Mood and affect is intact. Laboratory Tests Test 02/04/18 05:40 White Blood Count 6.3 K/UL (4.8-10.8) Red Blood Count 3.49 M/UL (4.20-5.40) L Hemoglobin 9.5 G/DL (12.0-16.0) L Hematocrit 30.5 % (37.0-47.0) L Mean Corpuscular Volume 87 FL (80-99) Mean Corpuscular Hemoglobin 27.1 PG (27.0-31.0) Mean Corpuscular Hemoglobin Concent 31.0 G/DL (32.0-36.0) L Red Cell Distribution Width 13.3 % (11.6-14.8) Platelet Count 208 K/UL (150-450) Mean Platelet Volume 7.7 FL (6.5-10.1) Neutrophils (%) (Auto) 49.7 % (45.0-75.0) Lymphocytes (%) (Auto) 33.7 % (20.0-45.0) Monocytes (%) (Auto) 13.0 % (1.0-10.0) H Eosinophils (%) (Auto) 2.0 % (0.0-3.0) Basophils (%) (Auto) 1.6 % (0.0-2.0) Sodium Level 138 MMOL/L (136-145) Potassium Level 4.6 MMOL/L (3.5-5.1) Chloride Level 106 MMOL/L (98-107) Carbon Dioxide Level 22 MMOL/L (21-32) Anion Gap 11 mmol/L (5-15) Blood Urea Nitrogen 34 mg/dL (7-18) H Creatinine 2.7 MG/DL (0.55-1.30) H Estimat Glomerular Filtration Rate 22.2 mL/min (>60) Glucose Level 177 MG/DL (74-106) H Calcium Level 8.9 MG/DL (8.5-10.1) Phosphorus Level 4.0 MG/DL (2.5-4.9) Magnesium Level 1.6 MG/DL (1.8-2.4) L Total Bilirubin 0.3 MG/DL (0.2-1.0) Aspartate Amino Transf (AST/SGOT) 47 U/L (15-37) H Alanine Aminotransferase (ALT/SGPT) 46 U/L (12-78) Alkaline Phosphatase 83 U/L (46-116) C-Reactive Protein, Quantitative 1.2 mg/dL (0.00-0.90) H Total Protein 7.1 G/DL (6.4-8.2) Albumin 2.7 G/DL (3.4-5.0) L Globulin 4.4 g/dL Albumin/Globulin Ratio 0.6 (1.0-2.7) L Current Medications Medications (Trade) Dose Ordered Sig/Artemio Route PRN Reason Start Time Stop Time Status Last Admin Dose Admin Acetaminophen (Tylenol) 650 mg Q4H PRN ORAL fever 01/29/18 22:15 02/28/18 22:14 Amlodipine Besylate (Norvasc) 5 mg DAILY ORAL 02/04/18 09:00 03/06/18 08:59 02/04/18 08:44 Cefepime HCl 1 gm/ Dextrose 55 ml @ 110 mls/hr DAILY IVPB 01/31/18 09:00 02/05/18 23:59 02/04/18 08:45 Chlorhexidine Gluconate (Nasreen-Hex 2%) 1 applic DAILY@1999 TOPIC 02/03/18 20:00 03/05/18 19:59 Chlorhexidine Gluconate (Nasreen-Hex 2%) 1 applic DAILY@1999 TOPIC 02/04/18 20:00 03/06/18 19:59 Dextrose (Dextrose 50%) 25 ml Q30M PRN IV Hypoglycemia 01/29/18 19:45 02/28/18 19:44 Dextrose (Dextrose 50%) 50 ml Q30M PRN IV Hypoglycemia 01/29/18 19:45 02/28/18 19:44 Diphenhydramine HCl (Benadryl) 25 mg Q6H PRN ORAL Itching/Pruritis 01/29/18 19:45 02/28/18 19:44 Docusate Sodium (Colace) 100 mg TID ORAL 01/30/18 18:00 02/28/18 20:59 02/02/18 08:56 Epoetin Carroll (Procrit (for non ESRD use)) 10,000 units FRI-WED-FRI SUBQ 02/02/18 21:00 03/04/18 20:59 02/02/18 21:29 Heparin Sodium (Porcine) (Heparin 5000 units/ml) 5,000 units EVERY 12 HOURS SUBQ 01/29/18 22:45 02/28/18 22:44 02/03/18 21:14 Heparin Sodium/ Sodium Chloride (Heparin 2000 units/Ns 1000ml premix) 2,000 unit ONCE PRN INJ PICC PLACEMENT 02/04/18 08:15 02/05/18 23:59 Insulin Aspart (NovoLOG) BEFORE MEALS AND HS SUBQ 01/30/18 06:30 03/01/18 06:29 02/04/18 06:05 Lidocaine HCl (Xylocaine 1% 30ml) 30 ml ONCE PRN INJ PICC PLACEMENT 02/04/18 08:15 02/05/18 23:59 Metronidazole (Flagyl) 500 mg Q8HR ORAL 01/30/18 22:00 02/06/18 21:59 02/04/18 05:42 Mirtazapine (Remeron) 7.5 mg BEDTIME PRN ORAL insomnia 01/31/18 01:00 03/02/18 00:59 Morphine Sulfate (Morphine Sulfate) 1 mg Q3H PRN IVP Mild Pain (Pain Scale 1-3) 01/29/18 19:45 02/05/18 19:44 Morphine Sulfate (Morphine Sulfate) 2 mg Q4H PRN IVP Moderate Pain (Pain Scale 4-6) 01/29/18 22:15 02/05/18 22:14 Morphine Sulfate (Morphine Sulfate) 4 mg Q3H PRN IVP Severe Pain (Pain Scale 7-10) 01/29/18 19:45 02/05/18 19:44 Nitroglycerin (Ntg) 0.4 mg Q5M PRN SL Prn Chest Pain 01/29/18 22:15 02/28/18 22:14 Ondansetron HCl (Zofran) 4 mg Q6H PRN IVP Nausea & Vomiting 01/29/18 22:15 02/28/18 22:14 Pantoprazole (Protonix) 40 mg DAILY ORAL 01/30/18 13:30 03/01/18 13:29 02/04/18 08:44 Polyethylene Glycol (Miralax) 17 gm DAILYPRN PRN ORAL Constipation 01/29/18 22:15 02/28/18 22:14 Sodium Chloride 1,000 ml @ 50 mls/hr Q20H IV 01/30/18 13:30 03/01/18 13:29 02/03/18 16:18 Vancomycin HCl (Vanco rx to dose) 1 ea DAILY PRN MISC . 02/03/18 12:00 03/05/18 11:59 Vancomycin HCl 1 gm/Dextrose 275 ml @ 183.708 mls/hr Q24H IVPB 02/02/18 01:00 02/07/18 00:59 02/04/18 01:17 Faye Foy M.D. Feb 04, 2018 11:18
[2018-02-04 12:00] VITALS: BP 140/91
--- NOTE | 2018-02-04 12:21 | Nephrology Progress Note ---
Assessment/Plan Problem List: (1) Diabetic nephropathy (2) Anemia in chronic kidney disease (3) CKD (chronic kidney disease) Assessment: Cr up 2.7 (4) Diabetic foot ulcer (5) Peripheral vascular disease Assessment Renal failure- Likely Diabetic nephropathy cr creeping up HTN PVD Diabetic foot ulcers / Osteo Anemia of CKD Multiple allergies Plan add Norvasc Avoid nephrotoxics GARRISON kidney Essentially unremarkable exam. Negative for hydronephrosis 2D echo Left ventricular ejection fraction estimated to be 60 %. Anemia li: start EPO and IV iron Monitor renal parameters Per orders Ua 3+ proteinuria Subjective ROS Limited/Unobtainable: No Constitutional: Reports: malaise Objective Objective Last 24 Hour Vital Signs Date Time Temp Pulse Resp B/P (MAP) Pulse Ox O2 Delivery O2 Flow Rate FiO2 02/04/18 08:44 80 126/80 02/04/18 08:00 97.8 80 18 126/80 (95) 98 02/04/18 04:00 97.2 78 19 141/69 (93) 96 02/04/18 00:00 97.8 80 19 141/66 (91) 99 02/03/18 21:00 Room Air 02/03/18 20:00 97.2 80 19 127/82 (97) 98 02/03/18 19:51 74 16 Room Air 21 02/03/18 16:00 98.2 81 19 137/80 (99) 95 02/03/18 13:33 86 154/93 Intake and Output 02/03/18 02/04/18 19:00 07:00 Intake Total 1805 ml 1075.000 ml Balance 1805 ml 1075.000 ml Intake Oral 1200 ml 250 ml IV Total 605 ml 825.000 ml # Voids 4 9 # Bowel Movements 2 Laboratory Tests 02/04/18 05:40: White Blood Count 6.3, Red Blood Count 3.49L, Hemoglobin 9.5L, Hematocrit 30.5L , Mean Corpuscular Volume 87, Mean Corpuscular Hemoglobin 27.1, Mean Corpuscular Hemoglobin Concent 31.0L, Red Cell Distribution Width 13.3, Platelet Count 208, Mean Platelet Volume 7.7, Neutrophils (%) (Auto) 49.7, Lymphocytes (%) (Auto) 33.7, Monocytes (%) (Auto) 13.0H, Eosinophils (%) (Auto) 2.0, Basophils (%) (Auto) 1.6, Sodium Level 138, Potassium Level 4.6, Chloride Level 106, Carbon Dioxide Level 22, Anion Gap 11, Blood Urea Nitrogen 34H, Creatinine 2.7H, Estimat Glomerular Filtration Rate 22.2, Glucose Level 177H, Calcium Level 8.9, Phosphorus Level 4.0, Magnesium Level 1.6L, Total Bilirubin 0.3, Aspartate Amino Transf (AST/SGOT) 47H, Alanine Aminotransferase (ALT/SGPT) 46, Alkaline Phosphatase 83, C-Reactive Protein, Quantitative 1.2H, Total Protein 7.1, Albumin 2.7L, Globulin 4.4, Albumin/Globulin Ratio 0.6L Height (Feet): 5 Height (Inches): 4.00 Weight (Pounds): 247 General Appearance: no apparent distress Cardiovascular: regular rhythm Respiratory/Chest: lungs clear Abdomen: soft Objective no change Wing Valadez MD Feb 04, 2018 12:21
[2018-02-04] MEDS ORDERED: Tubing IV Secondary IV ONE (15:22)
[2018-02-04 16:00] VITALS: BP 139/86
--- NOTE | 2018-02-04 17:04 | Internal Med Progress Note ---
Subjective Physician Name Tobin Albert Attending Physician Tobin Albert MD Current Medications Medications (Trade) Dose Ordered Sig/Artemio Route PRN Reason Start Time Stop Time Status Last Admin Dose Admin Acetaminophen (Tylenol) 650 mg Q4H PRN ORAL fever 01/29/18 22:15 02/28/18 22:14 Amlodipine Besylate (Norvasc) 5 mg DAILY ORAL 02/04/18 09:00 03/06/18 08:59 02/04/18 08:44 Cefepime HCl 1 gm/ Dextrose 55 ml @ 110 mls/hr DAILY IVPB 01/31/18 09:00 03/11/18 23:59 02/04/18 08:45 Chlorhexidine Gluconate (Nasreen-Hex 2%) 1 applic DAILY@1999 TOPIC 02/03/18 20:00 03/05/18 19:59 Chlorhexidine Gluconate (Nasreen-Hex 2%) 1 applic DAILY@1999 TOPIC 02/04/18 20:00 03/06/18 19:59 Dextrose (Dextrose 50%) 25 ml Q30M PRN IV Hypoglycemia 01/29/18 19:45 02/28/18 19:44 Dextrose (Dextrose 50%) 50 ml Q30M PRN IV Hypoglycemia 01/29/18 19:45 02/28/18 19:44 Diphenhydramine HCl (Benadryl) 25 mg Q6H PRN ORAL Itching/Pruritis 01/29/18 19:45 02/28/18 19:44 Docusate Sodium (Colace) 100 mg TID ORAL 01/30/18 18:00 02/28/18 20:59 02/02/18 08:56 Epoetin Carroll (Procrit (for non ESRD use)) 10,000 units MON-WED-FRI SUBQ 02/02/18 21:00 03/04/18 20:59 02/02/18 21:29 Heparin Sodium (Porcine) (Heparin 5000 units/ml) 5,000 units EVERY 12 HOURS SUBQ 01/29/18 22:45 02/28/18 22:44 02/03/18 21:14 Heparin Sodium/ Sodium Chloride (Heparin 2000 units/Ns 1000ml premix) 2,000 unit ONCE PRN INJ PICC PLACEMENT 02/04/18 08:15 02/05/18 23:59 Insulin Aspart (NovoLOG) BEFORE MEALS AND HS SUBQ 01/30/18 06:30 03/01/18 06:29 02/04/18 15:55 Lidocaine HCl (Xylocaine 1% 30ml) 30 ml ONCE PRN INJ PICC PLACEMENT 02/04/18 08:15 02/05/18 23:59 Metronidazole (Flagyl) 500 mg Q8HR ORAL 01/30/18 22:00 02/12/18 23:59 02/04/18 15:50 Mirtazapine (Remeron) 7.5 mg BEDTIME PRN ORAL insomnia 01/31/18 01:00 03/02/18 00:59 Morphine Sulfate (Morphine Sulfate) 1 mg Q3H PRN IVP Mild Pain (Pain Scale 1-3) 01/29/18 19:45 02/05/18 19:44 Morphine Sulfate (Morphine Sulfate) 2 mg Q4H PRN IVP Moderate Pain (Pain Scale 4-6) 01/29/18 22:15 02/05/18 22:14 Morphine Sulfate (Morphine Sulfate) 4 mg Q3H PRN IVP Severe Pain (Pain Scale 7-10) 01/29/18 19:45 02/05/18 19:44 Nitroglycerin (Ntg) 0.4 mg Q5M PRN SL Prn Chest Pain 01/29/18 22:15 02/28/18 22:14 Ondansetron HCl (Zofran) 4 mg Q6H PRN IVP Nausea & Vomiting 01/29/18 22:15 02/28/18 22:14 Pantoprazole (Protonix) 40 mg DAILY ORAL 01/30/18 13:30 03/01/18 13:29 02/04/18 08:44 Polyethylene Glycol (Miralax) 17 gm DAILYPRN PRN ORAL Constipation 01/29/18 22:15 02/28/18 22:14 Sodium Chloride 1,000 ml @ 50 mls/hr Q20H IV 01/30/18 13:30 03/01/18 13:29 02/03/18 16:18 Vancomycin HCl (Vanco rx to dose) 1 ea DAILY PRN MISC . 02/03/18 12:00 03/05/18 11:59 Vancomycin HCl 1 gm/Dextrose 275 ml @ 183.708 mls/hr Q24H IVPB 02/02/18 01:00 03/10/18 00:59 12/26/18 01:17 Allergies: Coded Allergies: PENICILLINS (Verified Allergy, Severe, SWOLLEN BODY, 04/23/17) Per Daughter, patient has tolerated Amoxicillin Tolerated Ceftriaxone 04/22/17 Uncoded Allergies: Blood Transfusion (Adverse Reaction, Unknown, 06/29/17) Pt states that she develops lower extremity wounds after blood transfusions Subjective awake, alert, responsive, NAD, feeling okay. No CP or SOB. Objective Last Vital Signs Date Time Temp Pulse Resp B/P (MAP) Pulse Ox O2 Delivery O2 Flow Rate FiO2 02/04/18 16:00 97.7 78 16 139/86 (103) 99 02/04/18 09:00 Room Air 02/03/18 19:51 21 Laboratory Tests Test 02/04/18 05:40 White Blood Count 6.3 K/UL (4.8-10.8) Red Blood Count 3.49 M/UL (4.20-5.40) L Hemoglobin 9.5 G/DL (12.0-16.0) L Hematocrit 30.5 % (37.0-47.0) L Mean Corpuscular Volume 87 FL (80-99) Mean Corpuscular Hemoglobin 27.1 PG (27.0-31.0) Mean Corpuscular Hemoglobin Concent 31.0 G/DL (32.0-36.0) L Red Cell Distribution Width 13.3 % (11.6-14.8) Platelet Count 208 K/UL (150-450) Mean Platelet Volume 7.7 FL (6.5-10.1) Neutrophils (%) (Auto) 49.7 % (45.0-75.0) Lymphocytes (%) (Auto) 33.7 % (20.0-45.0) Monocytes (%) (Auto) 13.0 % (1.0-10.0) H Eosinophils (%) (Auto) 2.0 % (0.0-3.0) Basophils (%) (Auto) 1.6 % (0.0-2.0) Sodium Level 138 MMOL/L (136-145) Potassium Level 4.6 MMOL/L (3.5-5.1) Chloride Level 106 MMOL/L (98-107) Carbon Dioxide Level 22 MMOL/L (21-32) Anion Gap 11 mmol/L (5-15) Blood Urea Nitrogen 34 mg/dL (7-18) H Creatinine 2.7 MG/DL (0.55-1.30) H Estimat Glomerular Filtration Rate 22.2 mL/min (>60) Glucose Level 177 MG/DL (74-106) H Calcium Level 8.9 MG/DL (8.5-10.1) Phosphorus Level 4.0 MG/DL (2.5-4.9) Magnesium Level 1.6 MG/DL (1.8-2.4) L Total Bilirubin 0.3 MG/DL (0.2-1.0) Aspartate Amino Transf (AST/SGOT) 47 U/L (15-37) H Alanine Aminotransferase (ALT/SGPT) 46 U/L (12-78) Alkaline Phosphatase 83 U/L (46-116) C-Reactive Protein, Quantitative 1.2 mg/dL (0.00-0.90) H Total Protein 7.1 G/DL (6.4-8.2) Albumin 2.7 G/DL (3.4-5.0) L Globulin 4.4 g/dL Albumin/Globulin Ratio 0.6 (1.0-2.7) L Intake and Output 02/03/18 02/04/18 19:00 07:00 Intake Total 1805 ml 1075.000 ml Balance 1805 ml 1075.000 ml Intake Oral 1200 ml 250 ml IV Total 605 ml 825.000 ml # Voids 4 9 # Bowel Movements 2 Objective GENERAL: The patient is awake, responsive, in no acute distress. HEAD AND NECK: Pupils are equal and reactive to light. Extraocular movements are intact. Neck was supple. No JVD. LUNGS: Good air entry. No wheezing or rales. HEART: S1 and S2. Distant heart sounds. No murmur. ABDOMEN: Soft, nondistended, and nontender. Morbidly obese. EXTREMITIES: No cyanosis, clubbing, or edema. Right UE Piccline, Right lower extremity has a transmetatarsal amputation with intact dressing. RECTAL/GENITOURINARY: Refused and deferred. PSYCHIATRIC: Mood and affect is intact. Assessment/Plan Assessment/Plan 1. Right foot transmetatarsal infected with underlying abscess as well as osteomyelitis. 2. Severe peripheral vascular disease. 3. Chronic kidney disease. 4. Diabetes type 2, uncontrolled. 5. Diabetic nephropathy. 6. Chronic foot ulcer. 7. History of bacteremia. 8. Hypertension. 9. Prior history of sepsis. 10.anemia of CKD. PLAN: 1. In medical/surgical. 2. We will follow up with Dr. Ramirez, Patient refused BKA, 3. We will monitor laboratory and cultures. 4. Broad-spectrum antibiotic: vancomycin, Flagyl, and cefepime. 5. Code status is Full Code. 6. Accu-Chek with sliding scale. 7. Heparin 5000 q.8 hours. 8. We will follow up with Dr. Valadez from Nephrology and Dr. Schwarz Podiatry consultation. 9. 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 DC to SNF today. [place] Constantino Payam MD Feb 04, 2018 17:04
[2018-02-04 20:00] VITALS: BP 140/89
[2018-02-04] MEDS ORDERED: Dyna-Hex 2% Top Sol 2oz TOPIC SCH (20:00)
[2018-02-04] MEDS: Epogen (for non ESRD use) SUBQ SCH (21:15)
[2018-02-05] VITALS: BP 153/82
[2018-02-05] MEDS: Vancomycin 1gm in D5W 275ml IVPB SCH (01:23)
[2018-02-05 04:00] VITALS: BP 155/87
[2018-02-05] MEDS: metroNIDAZOLE 500mg tab ORAL SCH (06:32)
[2018-02-05] MEDS: NovoLOG Insulin Flexpen SUBQ SCH (06:33)
[2018-02-05 08:00] VITALS: BP 153/98
[2018-02-05 08:39] VITALS: BP 153/98
[2018-02-05] MEDS: Docusate 100mg cap ORAL SCH (08:39)
[2018-02-05] MEDS: Heparin 5000 units/ml inj SUBQ SCH (08:44)
[2018-02-05] MEDS: Cefepime 1gm in D5W 55ml IVPB SCH (08:46)
[2018-02-05] MEDS ORDERED: NORVASC5 MG ORAL (09:35)
[2018-02-05] MEDS ORDERED: ACETAMINOPHEN325 M1 ORAL (09:35)
[2018-02-05] MEDS ORDERED: CEFEPIME-D1 GM/50 ML IVPB (09:36)
[2018-02-05] MEDS ORDERED: DYNA HEX TP (09:37)
[2018-02-05] MEDS ORDERED: PROCRIT10000 UNIT SUBQ (09:38)
[2018-02-05] MEDS ORDERED: DOCUSATE SODIU100 M2 ORAL (09:38)
[2018-02-05] MEDS ORDERED: DIPHENHYDRAMINE25 M3 ORAL (09:38)
[2018-02-05] MEDS ORDERED: NOVOLOG100 UNIT/4 SQ ×2 (09:39→09:42)
[2018-02-05] MEDS ORDERED: METRONIDAZOLE500 MG ORAL (09:40)
[2018-02-05] MEDS ORDERED: MIRTAZAPINE7.5 MG ORAL (09:42)
[2018-02-05] MEDS ORDERED: PROTONIX40 MG ORAL (09:43)
[2018-02-05] MEDS ORDERED: VANCOMYCIN1 GM IV (09:45)
--- NOTE | 2018-02-05 11:24 | General Surgery Progress Note ---
General Surgery-Progress Note Subjective Additional Comments picc line inserted. otherwise well Objective Last 24 Hour Vital Signs Date Time Temp Pulse Resp B/P (MAP) Pulse Ox O2 Delivery O2 Flow Rate FiO2 02/05/18 08:39 85 153/98 02/05/18 08:00 97.9 85 20 153/98 (116) 97 02/05/18 06:51 81 17 Room Air 21 02/05/18 04:00 98.2 84 19 155/87 (109) 99 02/05/18 00:00 98.2 81 18 153/82 (105) 97 02/04/18 21:08 77 20 Room Air 21 02/04/18 21:00 Room Air 02/04/18 20:00 98.4 82 18 140/89 (106) 98 02/04/18 16:00 97.7 78 16 139/86 (103) 99 02/04/18 12:00 98.6 76 16 140/91 (107) 99 I&O Intake and Output 02/04/18 02/05/18 19:00 07:00 Intake Total 700 ml 545.000 ml Balance 700 ml 545.000 ml Intake Oral 700 ml 120 ml IV Total 425.000 ml # Voids 2 6 # Bowel Movements 1 Dressing: saturated Wound: other Cardiovascular: RSR Respiratory: clear Abdomen: soft, flat, non-tender, present bowel sounds Extremities: other Laboratory Tests Test 02/05/18 00:20 Vancomycin Level Trough 20.0 ug/mL (5.0-12.0) H Plan Problems: (1) Diabetic foot ulcer Assessment & Plan: Patient has history of large foot ulcers and prior infections/abscess requiring I&D. she has poorly controlled DM and in the past has had issues with distal feet. I have performed I&D on her in the past and extensive wound care to salvage extremity. She has been in rehab for some time now and being cared for there by wound team. 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 States was doing well and walking with prosthetic but developed large ulcer which is now foul smelling and draining. I have considered BKA in the past for her but will hold currently given medical condition. she presents to ED with elevated glucose levels and renal insufficiency. wound is a large distal midfoot ulcer with possible underlying infection MRI noted. now seems to have possible osteo and infection which would explain poor healing wound Signal abnormality of all 5 metatarsal stumps. Unless the amputation with very recent, (in which case signal abnormality could be reactive), findings are worrisome for osteomyelitis. Subtle signal abnormality of the lateral cuneiform, could indicate early osteomyelitis 5.1 x 2.1 x 1.3 cm fluid collection in the superficial posterior plantar fat. This is concerning for an abscess. 1.8 x 1.2 x 5.2 cm fluid collection medial to the anterior calcaneus within the deep subcutaneous fat, likewise concerning for abscess. There is a small collection which appears related to this but separate immediately anterior medically still not optimized. glucose not controlled. A1C >10 Reviewed MRI findings with patient. discussed clinical condition with her in detail. given MRI findings and clinical exam I agree with Podiatry and would benefit from BKA. I discussed this with patient and rational for why BKA would be beneficial. I explained to her the risks and benefits to surgery. In her given medical state she is at high risk for infection and wound failure/flap failure. She has DM uncontrolled with complications such as PVD and renal insufficiency. The changes of salvaging what she has now is low given above but the risk of morbidities from surgery there. I discussed alternatives to surgery with patient and recommended against them. There is no role for skin graft in her current condition and would not be recommended. if it were just a wound, could cont with would care for some time and see if improvement but unfortunately more than just a wound. she has underlying tissue abnormalities and potential osteo / abscess. If patient did not want surgery / BKA next option would be fpc Abx but not sure if this would cure infection for her. furthermore, could cause more injury to renal function. After discussing above in detail with patient, she stated that she does not want surgery now. she understands risk and wants abx and wound care. i explained that this is unlikey to resolve issues and she expressed that she understood but is not ready for surgery yet. -okay for diet -Abx -PICC with plans for 6 weeks abx as per ID -appreciate Podiatry input. -d/c -f/u with me in 1 month thank you. will follow with recs. Sandro Ramirez Feb 05, 2018 11:24
--- NOTE | 2018-02-05 15:03 | Nephrology Progress Note ---
Assessment/Plan Problem List: (1) Diabetic nephropathy (2) Anemia in chronic kidney disease (3) CKD (chronic kidney disease) Assessment: Cr up 2.7 (4) Diabetic foot ulcer (5) Peripheral vascular disease Assessment Renal failure- Likely Diabetic nephropathy cr creeping up HTN PVD Diabetic foot ulcers / Osteo Anemia of CKD Multiple allergies Plan add Norvasc Avoid nephrotoxics GARRISON kidney Essentially unremarkable exam. Negative for hydronephrosis 2D echo Left ventricular ejection fraction estimated to be 60 %. Anemia li: start EPO and IV iron Monitor renal parameters Per orders Ua 3+ proteinuria due DC today Subjective ROS Limited/Unobtainable: No Interval Events/Complaints seen at 9.30 am Objective Objective Last 24 Hour Vital Signs Date Time Temp Pulse Resp B/P (MAP) Pulse Ox O2 Delivery O2 Flow Rate FiO2 02/05/18 08:39 85 153/98 02/05/18 08:00 97.9 85 20 153/98 (116) 97 02/05/18 06:51 81 17 Room Air 21 02/05/18 04:00 98.2 84 19 155/87 (109) 99 02/05/18 00:00 98.2 81 18 153/82 (105) 97 02/04/18 21:08 77 20 Room Air 21 02/04/18 21:00 Room Air 02/04/18 20:00 98.4 82 18 140/89 (106) 98 02/04/18 16:00 97.7 78 16 139/86 (103) 99 Intake and Output 02/04/18 02/05/18 19:00 07:00 Intake Total 700 ml 545.000 ml Balance 700 ml 545.000 ml Intake Oral 700 ml 120 ml IV Total 425.000 ml # Voids 2 6 # Bowel Movements 1 Laboratory Tests 02/05/18 00:20: Vancomycin Level Trough 20.0H Height (Feet): 5 Height (Inches): 4.00 Weight (Pounds): 247 General Appearance: no apparent distress Objective no change Wing Valadez MD Feb 05, 2018 15:03
--- NOTE | 2018-02-05 17:03 | Diagnostic Imaging Report ---
APPROVED REPORT CPT Code: 37496 Present Symptoms Lower Extremity Pain: BILATERAL: Imaging reveals a patent deep venous system bilaterally. There is no evidence of thrombus within the femoral, popliteal or tibial segments. The greater saphenous veins are also within normal limits. Doppler indicates normal spontaneous flow within these segments.
--- NOTE | 2018-02-06 09:46 | Discharge Summary ---
Discharge Summary Discharge Summary _ DATE OF ADMISSION: 01/29/2018 DATE OF DISCHARGE: 02/05/2018 DISCHARGED BY: Dr. Tobin Albert CONSULTANTS: Dr. Wing Schwarz [facility] COURSE: Patient is a 52-year-old morbidly obese female, with past medical history significant for hypertension, diabetes type 2, chronic kidney disease, and dyslipidemia, who presented to the hospital from nursing facility after she was noted to have infected right foot stump. The patient underwent a transmetatarsal amputation in the past and was noted to have the wound still oozing with necrotic S. She was then transferred to the hospital for further evaluation. On evaluation at the ED, vital signs were stable. Blood work did not show any leukocytosis, hemoglobin 9.3, hematocrit 30. BUN was elevated to 41, creatinine 2.6. Glucose was 325, hemoglobin A1c 10. Venous duplex of lower extremity was negative for acute DVT. She was noted to have decreased perfusion to the right lower extremity. She was then admitted for further care and management. Surgical consult was called. Patient had prior lower extremity infection that required I&D, IV antibiotics and wound care. Patient had severe infection and was recommended to have BKA. She had distal partial foot amputation done on the right. She stated she was doing well and was walking with prosthetics but developed a large sore which has become foul-smelling and draining. She was recommended workup of infection and medical management. Hold off on surgery for now. ID was consulted. Patient has history of polymicrobial cellulitis and osteomyelitis. She was given empiric IV vancomycin and aztreonam and Flagyl. [employer] was consulted. She was ordered wound care. She was recommended elective BKA would be best choice in order to resolve future morbidity. She would need further medical optimization. Wound culture showed growth of staph aureus, group G strep and gram-negative rods. MRI of the right foot showed postsurgical changes, described signal abnormality of all 5 metatarsal stumps, findings worrisome for osteomyelitis. Patient will need prolonged IV antibiotics, duration will be guided pending surgical input intervention. If no amputation then will need 6 weeks of IV antibiotics. She was given IV vancomycin, cefepime and Flagyl. She had elevated kidney function. Renal ultrasound done was negative. She was noted to have anemia and was started on Epogen and IV iron. Patient has anxiety disorder and insomnia. Seen by a psychiatrist. She was given Remeron. Blood glucose was monitored. She was given NovoLog sliding scale. Patient refused surgery at this point. PICC line was inserted to the right arm. Will need to be on IV antibiotics for 42 days. Continue wound care. Patient was then discharged back to half-way. FINAL DIAGNOSES: Right foot stump with underlying abscess and osteomyelitis Diabetes mellitus type 2 out of control Hypertension GERD CKD stage IV Diabetic nephropathy Severe peripheral vascular disease Chronic kidney disease Major depressive disorder Anxiety disorder Nonpressure ulcer of the right foot, chronic, present on admission Prior history of sepsis Diabetic foot ulcer of the left foot, present on admission Diabetes mellitus with neuropathy DISPOSITION: Patient was discharged to [facility]. DISCHARGE MEDICATIONS: Refer to Discharge Medication List. IV vancomycin 1 g daily, cefepime 1 g daily until 03/11/2018 and p.o. Flagyl 500 mg 3 times daily until 02/11/2018. Weekly CBC, CMP and Vanco trough. DISCHARGE INSTRUCTIONS: Follow-up with Dr. Thibodeaux in a month I have been assigned to dictate discharge summary on this account, and I was not involved in the patient's management. Bee Andrew NP Feb 06, 2018 09:46
== END 2018-02-05 11:04 | DRG 540 ==
LOC: EMR 19:16 → 4E 19:19 → EDBEDREQ 21:17
PROC: 02HV33Z Insertion of Infusion Device into Superior Vena Cava, Percutaneous Approach (ICD-10-PCS; principal; 2018-02-04)
DX: M86.171 Other acute osteomyelitis, right ankle and foot (principal); L02.611 Cutaneous abscess of right foot; N18.4 Chronic kidney disease, stage 4 (severe); Z68.41 Body mass index [BMI] 40.0-44.9, adult; E66.01 Morbid (severe) obesity due to excess calories; I73.9 Peripheral vascular disease, unspecified; I12.9 Hypertensive chronic kidney disease with stage 1 through stage 4 chronic kidney disease, or unspecified chronic kidney disease; E11.22 Type 2 diabetes mellitus with diabetic chronic kidney disease; E11.65 Type 2 diabetes mellitus with hyperglycemia; E78.5 Hyperlipidemia, unspecified; Z79.82 Long term (current) use of aspirin; Z79.4 Long term (current) use of insulin; Z88.0 Allergy status to penicillin; Z88.8 Allergy status to other drugs, medicaments and biological substances; F41.9 Anxiety disorder, unspecified; G47.00 Insomnia, unspecified; L97.529 Non-pressure chronic ulcer of other part of left foot with unspecified severity; G62.9 Polyneuropathy, unspecified; Z89.411 Acquired absence of right great toe; Z89.421 Acquired absence of other right toe(s); E11.40 Type 2 diabetes mellitus with diabetic neuropathy, unspecified; B95.61 Methicillin susceptible Staphylococcus aureus infection as the cause of diseases classified elsewhere; B95.4 Other streptococcus as the cause of diseases classified elsewhere; B96.89 Other specified bacterial agents as the cause of diseases classified elsewhere; D64.9 Anemia, unspecified
CPT/HCPCS: 36415; 36569; 76770; 76937; 80048; 80053; 80061; 80202; 81001; 82607; 82728; 82746; 82962; 82977; 83036; 83540; 83550; 83735; 83880; 84100; 84443; 84484; 84550; 85025; 85610; 85651; 85730; 86140; 86850; 86900; 86901; 87070; 87081; 87181; 87205; 93005; 93306; 93970; 94664; 99284; A4246; J1815